=== PATIENT | female | born 1950 | race Caucasian/White ===

== ENCOUNTER 2024-08-25 12:42 | Emergency (ER) | payer MEDICARE, SELFPAY ==
[2024-08-25 12:46] VITALS: BP 174/99; PULSE 98; TEMP 36.6; O2SAT 98; BMI 32.7
--- NOTE | 2024-08-25 13:18 | CT_ITS ---
The [address] [address] Patient Name: JANELLE BROWN MRN: [id number] date: 1950 Sex: F Assigned Patient Location: ER Current Patient Location: ER Accession/Order Number: [id number] Exam Date: 08/25/2024 13:30 Report Date: 08/25/2024 13:56 At the request of: SUSIE BELL Procedure: CT head/brain wo con EXAM: CT head/brain wo con HISTORY: trauma COMPARISON: None. TECHNIQUE: Multiple thin computed tomograms of the head were obtained, with sagittal and coronal reconstructions. Radiation reduction technique and algorithms were utilized during the study. FINDINGS: The ventricles are not enlarged, the lateral ventricles are slightly asymmetric but within normal variation, and the third ventricles in the midline. The sylvian fissures and cortical sulci are unremarkable. There is no evidence of an intracranial hemorrhage, mass lesion or apparent acute infarct. No definite abnormality seen in the deep white matter. The cerebellum and visualized brainstem are intact. The paranasal sinuses are well-developed with a few opacified ethmoid air cells anteriorly. The middle ears are aerated. The mastoid sinuses are clear. Soft tissue swelling is noted superficially along the anterior aspect of the forehead, with small air bubbles suggesting laceration and hematoma. CT/CT head/brain wo con IMPRESSION: There is no evidence of an intracranial hemorrhage, mass lesion or apparent acute infarct. A few ethmoid air cells are opacified anteriorly, and the paranasal sinuses otherwise clear. There is no apparent acute skull fracture. Soft tissue swelling in the subcutaneous soft tissues anteriorly at the forehead is noted, with laceration and small hematoma. Electronically authenticated by: FELICITAS HURTADO Date: 08/25/2024 13:56
--- NOTE | 2024-08-25 13:18 | CT_ITS ---
The [address] [address] Patient Name: JANELLE BROWN MRN: [id number] date: 1950 Sex: F Assigned Patient Location: ER Current Patient Location: ER Accession/Order Number: [id number] Exam Date: 08/25/2024 13:30 Report Date: 08/25/2024 14:22 At the request of: SUSIE BELL Procedure: CT facial bones wo con EXAM: Facial bones CT without contrast. Dose reduction technique used: Automated exposure control and/or adjustment of the mA and/or kV according to patient size and/or use of iterative reconstruction technique. REASON FOR EXAM: trauma COMPARISON: None FINDINGS: No acute facial bone or paranasal sinus fractures. Bilateral orbits are intact. No mandible fracture or dislocation. Bilateral globes are grossly intact. No orbital hematoma or inflammatory changes. Paranasal sinuses and mastoid air cells are clear. Frontal scalp laceration. Remainder unremarkable. CT/CT facial bones wo con IMPRESSION: 1.Frontal scalp laceration. 2. No other acute maxillofacial abnormalities. Electronically authenticated by: DELANO STOUT Date: 08/25/2024 14:22
[2024-08-25] MEDS: ADACEL DIPH,PERTUSS(ACELL),TET VAC/PF 0.5 ML ADULT SYRINGE IM (13:23)
[2024-08-25] MEDS: LIDOCAINE HCL 1% 100 MG/10 ML MDV INJ (13:27)
--- NOTE | 2024-08-25 16:19 | ED.HEATRA1 ---
HPI HPI - Head Injury General Chief complaint: Head Injury Stated complaint: FALL Time Seen by Provider: 08/25/24 13:07 Mode of arrival: walk-in History of Present Illness HPI Narrative: The patient is coming to us with a forehead laceration that she sustained after she fell almost within the last hour when she was at home. Patient mentioned that she just tripped on the carpet and hit her forehead on the heater at home There was no loss of consciousness the patient does not take any anticoagulation The patient does not remember the last time she had a tetanus booster and she is denying any pain other than mild headache Related Data Home Medications ?Medication ?Instructions ?Recorded ?Confirmed buspirone 15 mg tablet 15 mg PO Q12H 08/25/24 08/25/24 losartan 50 mg tablet 50 mg PO DAILY 08/25/24 08/25/24 omeprazole 40 mg capsule,delayed 40 mg PO DAILY 08/25/24 08/25/24 release rosuvastatin 5 mg tablet 5 mg PO Q48H 08/25/24 08/25/24 venlafaxine 150 mg 150 mg PO DAILY 08/25/24 08/25/24 capsule,extended release 24 hr venlafaxine 75 mg capsule,extended 75 mg PO DAILY 08/25/24 08/25/24 release 24 hr Allergies Allergy/AdvReac Type Severity Reaction Status Date / Time No Known Drug Allergies Allergy Verified 08/25/24 12:46 Opioid HPI Opioid Management Most Recent Pain and Opioid Data: No Data to Display Review of Systems ROS Status of ROS 10 or more systems reviewed and unremarkable except as noted in history and below PFSH PFSH Social History Little interest or pleasure in doing things: not at all Feeling down, depressed, or hopeless: not at all Exam Narrative Exam Narrative: Nurses notes and vital signs reviewed and patient is not hypoxic. General: Well-appearing and in no apparent distress. Skin: Warm, dry, no pallor noted. No rash. Head: Normocephalic, just above the right eyebrow the patient have a laceration that is vertical linear and the almost 5 cm with the no exposure of the underlying structures no foreign body and the bleeding is minimal Neck: Supple, non-tender. Eye: Pupils are equal, round and EOMI. No scleral icterus. Ears, Nose, Mouth, and Throat: TM are clear, no nasal mucosal hypertrophy. Oral mucosa is moist, no posterior oropharynx erythema, uvula is mid-line Cardiovascular: Regular Rate and Rhythm without murmur, gallop or rub. Respiratory: No accessory muscle use or respiratory distress. Lungs are clear to auscultation, no wheezing, rales or rhonchi Chest Wall: no tenderness Back: No midline thoracic or lumbar vertebral tenderness. No CVA tenderness Musculoskeletal: normal ROM, no calf or popliteal tenderness, no lower extremity edema/swelling GI: Abdomen is soft, non-distended. Normal bowel sounds. No masses appreciated. No tenderness to palpation. No rebound, guarding, or rigidity noted. Neurological: A&O x4. No cranial nerve dysfunction observed. No truncal ataxia. Moves all extremities. Sensation intact. Psychiatric: Cooperative and interactive. Normal mood and affect. Constitutional Vital Signs, click to edit/add: Last Vital Signs Temp 98 F 08/25/24 12:46 Pulse 98 H 08/25/24 12:46 Resp 18 08/25/24 12:46 BP 174/99 H 08/25/24 12:46 Pulse Ox 98 08/25/24 12:46 O2 Del Method Room Air 08/25/24 12:46 Course Vital Signs Vital signs: Vital Signs Temperature 98 F 08/25/24 12:46 Pulse Rate 98 H 08/25/24 12:46 Respiratory Rate 18 08/25/24 12:46 Blood Pressure 174/99 H 08/25/24 12:46 Pulse Oximetry 98 08/25/24 12:46 Oxygen Delivery Method Room Air 08/25/24 12:46 Temperature 98 F 08/25/24 12:46 Pulse Rate 98 H 08/25/24 12:46 Respiratory Rate 18 08/25/24 12:46 Blood Pressure 174/99 H 08/25/24 12:46 Pulse Oximetry 98 08/25/24 12:46 Oxygen Delivery Method Room Air 08/25/24 12:46 MDM - Head Injury MDM Narrative Medical decision making narrative: CT of the head as well as CT of the face showed no acute pathology Patient was provided tetanus booster After cleaning the area with normal saline and Betadine the patient had the area infiltrated with 1% lidocaine with no epinephrine almost 10 cc After which the patient had 7 stitches of 4-0 Ethilon stitches The patient tolerated the procedure well she was instructed about wound care and monitoring her symptoms for the next 10 hours after she had a head injury The patient son will be with her overnight The patient is to follow up with primary care physician in next 2-3 days or to return to the emergency department should any of the signs or symptoms worsen or new symptoms develop. The patient agrees with the following Diagnosis and Treatment plan and the patient will be discharged home. Discharge Plan Discharge Chief Complaint: Head Injury Clinical Impression: Closed head injury, Laceration of face Patient Disposition: Home, Self-Care Time of Disposition Decision: 14:39 Condition: Good Prescriptions / Home Meds: No Action buspirone 15 mg tablet 15 mg PO Q12H losartan 50 mg tablet 50 mg PO DAILY omeprazole 40 mg capsule,delayed release(DR/EC) 40 mg PO DAILY rosuvastatin 5 mg tablet 5 mg PO Q48H venlafaxine 150 mg capsule,extended release 24hr 150 mg PO DAILY venlafaxine 75 mg capsule,extended release 24hr 75 mg PO DAILY Print Language: Setswana Instructions: Laceration (DC), Head Injury (ED) Referrals: CHRISTINA JARVIS [Primary Care Provider] - 1 week Discharge Date/Time: 08/25/24 14:51
== END 2024-08-25 14:51 | disposition home or self-care (01) ==
PROVIDERS: Emergency Provider Emergency Medicine; PCP Family Medicine
DX: S01.81XA Laceration without foreign body of other part of head, initial encounter (principal); S09.8XXA Other specified injuries of head, initial encounter; W01.198A Fall on same level from slipping, tripping and stumbling with subsequent striking against other object, initial encounter; Z23 Encounter for immunization
CPT/HCPCS: 12013; 70450; 70486; 90471; 90715; 99284

== ENCOUNTER 2025-08-25 16:24 | Inpatient (IN) | payer MEDICARE, SELFPAY ==
[2025-08-25] VITALS (66 sets, daily range): BP systolic 93–135; BP diastolic 59–90; PULSE 75–182; TEMP 36.2–37.1; O2SAT 78–100; BMI 30.4; BMI 31.9
--- OUTSIDE RECORDS SUMMARY | 2025-08-25 16:29 | XMS_ITS | CCD ---
Author Organization [facility] Care Team Providers Care Australian Rules Footballer Name Role Phone BEVERLY GARCIAIL Admitting Unavailable BEVERLY GARCIAIL Attending Unavailable CHRISTINA JARVIS Referring Unavailable CHRISTINA JARVIS Primary Care Unavailable [place] Procedure Practitioner Unavailab le PETE GARCIA Surgeon Unavailable JAZMIN AVILA Admitting Unavailable JAZMIN AVILA Attending Unavailable CHRISTINA JARVIS Referring Unavailable CHRISTINA JARVIS Primary Care Unavailable JAZMIN AVILA Admitting Unavailable JAZMIN AVILA Attending Unavailable JAZMIN AVILA Referring Unavailable CHRISTINA JARVIS Primary Care Unavailable JAZMIN AVILA Admitting Unavailable JAZMIN AVILA Attending Unavailable CHRISTINA JARVIS Referring Unavailable CHRISTINA JARVIS Primary Care Unavailable Christina Jarvis Unavailable YADIRA Gao, DR MARY Pham Admitting Unavaila ble YADIRA ., DR MARY Pham Attending Unavaila binta JARVIS, DR VASQUEZ Primary Care Unavailable YADIRA ., DR MARY Pham Consulting Unavaila ble FILI II, SUSANA Consulting Unavailable NIKOLE HARE Unavailable DO Christina Jarvis Primary Care Provider DO Christina Jarvis Attending Provider DO Christina Jarvis Primary Care Provider [phone] DO Christina Jarvis Attending Provider [phone] Christina Jarvis DO Primary Care Provider Christina Jarvis DO Attending Provider Christina Jarvis Attending Unavailable Christina Jarvis Primary Care Unavailable Christina Jarvis Admitting Unavailable Christina Jarvis Admitting Unavailable Christina Jarvis Attending Unavailable Christina Jarvis Primary Care Unavailable Allergies Allergy ClassificationReported Allergen(s)Allergy TypeDate of OnsetReaction(s) Facility (5 sources)Acetaminophen / HYDROcodoneDrug Allergyhives?Toothpick Other (10 sources)atorvastatinDrug Sfeqmpd47-89-8933gwg painCorey Hospital (10 sources)ezetimibeDrug Oczbjdc97-92-8310zyak't likeCorey Hospital (6 sources)Acetaminophen; Translations: [acetaminophen]Drug Unchqfr05-58-3875 hives?[facility] (6 sources)HYDROcodone; Translations: [hydrocodone]Drug Kcpsalr07-94-0502zashw? [facility] (1 source)atorvastatinDrug Gfkafbe28-16-4125McfwahohlCorey Hospital Repository (1 source)ezetimibeDrug Mtwwmdq06-89-2366ShqsfokiyCorey Hospital Repository Medications Current Medications MedicationDrug Class(es)DatesSig (Normalized)Sig (Original)Centrum Silver (5 sources)take 1 tablet by mouth once dailyCentrum Silver 1 tablet Orally once a day ActivecycloSPORINE 0.5 mg/ml ophthalmic suspension (5 sources)Calcineurin Inhibitor Immunosuppressanttake 1 drop(s) into the eye(s) twice dailyRestasis 0.05 % 1 drop into affected eye Ophthalmic Twice a day Activetake 1 drop(s) into the eye(s) twice dailyRestasis 0.05 % 1 drop into affected eye Ophthalmic Twice a day ActiveLifitegrast (Xiidra) 5 % dropperette (2 sources)Start: 12-80-5882Iueclerwipq (Xiidra) 5 % dropperette Active DROPS OPHTHALMIC May 27, 2024 11:00pmStart: 68-18-9737Yiyfijdhghu (Xiidra) 5 % dropperette Active DROPS OPHTHALMIC May 28, 2024 12:00amlosartan potassium 50 mg oral tablet (20 sources)Angiotensin 2 Receptor BlockerStart: 59-94-7889mhya 1 tablet by mouth once dailyStart: 06-07-2024 End: 06-04-9404fsqf 1 tablet by mouth once dailyLosartan 50 mg tablet Discontinued 0 .ROUTE .COMPLEX May 14, 2025 2:21pm June 12, 2025 9:3 0am TAKE 1 TABLET BY MOUTH EVERY DAYStart: 03-08-2024 End: 38-28-9784ztdr 1 tablet by mouth once dailyLosartan 50 mg tablet Discontinued 50 MG PO Daily March 08, 2024 10:23am June 07, 2024 9:22am Losartan Potassium 50 mg TAKE 1 TABLET DAILY EbxgutDreoneyx-Avg-Hoav-Fa-Vit K- Lut (Centrum Silver Women) 8 mg iron-400 mcg-50 mcg tablet (4 sources)Start: 63-92-5751jdig 1 tablet by mouth once daily Yeyttvpf-Uca-Tskx-Fa-Vit K-Lut (Centrum Silver Women) 8 mg iron-400 mcg-50 mcg tablet Active 1 TAB PO Daily May 28, 2024 12:00am Complies with drug therapy Start: 12-63-1421cqqz 1 tablet by mouth once dailyStart: 33-46-1545afmk 1 tablet by mouth once qoqdmTjrowqcj-Csc-Elgj-Fa-Vit K-Lut (Centrum Silver Women) 8 mg iron-400 mcg-50 mcg tablet Active 1 TAB PO Daily May 27, 2024 11:00pmStart: 48-23-9462odfe 1 tablet by mouth once bmnjrWsuxcasd-Lte-Bdcy-Fa-Vit K-Lut (Centrum Silver Women) 8 mg iron-400 mcg-50 mcg tablet Active 1 TAB PO Daily May 28, 2024 12:00amomeprazole 40 mg delayed release oral capsule (20 sources)Proton Pump InhibitorStart: 05-28-2024 End: 33-28-3768Llzjoaetkx 40 mg capsule,delayed release(DR/EC) Active 40 MG PO .COMPLEX August 01, 2024 8:13am 40 mg orally TAKE 1 CAPSULE BY MOUTH EVERY DAY 30 MINUTES BEFORE MORNING MEAL; Complies with drug therapyStart: 05-01-2024 End: 01-42-9533Buntofjvnb 40 mg capsule,delayed release(DR/EC) Discontinued 0 .ROUTE .COMPLEX May 01, 2024 12:00pm May 28, 2024 2:56pm TAKE 1 CAPSULE BY MOUTH EVERY DAY 30 MINUTES BEFORE MORNING MEAL FOR 90 DAYSStart: 02-20-2024 End: 21-35-9315fykl 1 capsule by mouth once daily at mealtimeOmeprazole 40 mg capsule,delayed release(DR/EC) Discontinued 40 MG PO Daily February 20, 2024 3:05pmJuly 2023 12:00pm 30 min prior to a mealStart: 02-20-2024 End: 17-76-5606nqkf 1 capsule by mouth every other day at mealtimeOmeprazole 40 mg capsule,delayed release(DR/EC) Discontinued 40 MG PO .QOD February 20, 2024 12:00amApril 2023 3:05pm 30 min prior to a mealOmeprazole 40 MG 1 capsule 30 min prior to a meal Orally qod Activerosuvastatin calcium 5 mg oral tablet (20 sources)HMG-CoA Reductase InhibitorStart: 53-90-9258soco 1 tablet by mouth every other dayStart: 06-06-2024 End: 91-98-4090puht 1 tablet by mouth every other dayRosuvastatin 5 mg tablet Discontinued 0 .ROUTE .COMPLEX May 14, 2025 2:21pm June 1259:30am TAKE 1 TABLET BY MOUTH EVERY OTHER DAYStart: 03-08-2024 End: 09-21-4073vzxl 1 tablet by mouth every other dayRosuvastatin 5 mg tablet Discontinued 5 MG PO .QOD March 08, 2024 10:23am June 06, 2024 8:26amtake 1 tablet by mouth every other dayRosuvastatin Calcium 5 MG TAKE 1 TABLET BY MOUTH EVERY OTHER DAY for 90 ActivevalACYclovir 1000 mg oral tablet (1 source)Herpesvirus Nucleoside Analog DNA Polymerase Inhibitor, Herpes Simplex Virus Nucleoside Analog DNA Polymerase Inhibitor, Herpes Zoster Virus Nucleoside Analog DNA Polymerase InhibitorStart: 03-48-8488tnkf 1 tablet by mouth every eight hoursValtrex 1 GM 1 tablet Orally tid for 7 days Jan, Twgboa61 hr venlafaxine 150 mg extended release oral tablet (20 sources)Serotonin and Norepinephrine Reuptake InhibitorStart: 40-04-7359uxpv 1 capsule by mouth once dailyVenlafaxine 75 mg capsule,extended release 24hr Active 75 MG PO daily June 12, 2025 12:00am Complies with drug therapyStart: 08-31-2024 End: 04-27-1020kwjo 1 capsule by mouth once daily in the morningVenlafaxine 150 mg capsule,extended release 24hr Discontinued 150 MG PO Every morning August 1:00am June 12, 2025 9:22amStart: 05-28-2024 End: 39-53-4326dnyn 1 tablet by mouth once dailyVenlafaxine 150 mg tablet extended release 24hr Active 150 MG PO Daily June 12, 2025 9:24am Dr Arnett Complies with drug therapyStart: 05-28-2024 End: 99-75-0464bsqg 1 capsule by mouth once dailyVenlafaxine 75 mg capsule,extended release 24hr Discontinued 75 MG PO Daily May 28, 2024 12:00am August 31, 2024 12:43pmtake 1 tablet by mouth every twenty-four hours Venlafaxine HCl ER 150 MG 1 tablet with food Orally Once a day Active Completed/Discontinued Medications MedicationDrug Class(es)DatesSig (Normalized)Sig (Original)busPIRone hydrochloride 15 mg oral tablet (17 sources)Start: 05-28-2024 End: 54-86-6559gyrn 1 tablet by mouth twice daily, then take 1 tablet by mouth twice dailyBuspirone 15 mg tablet Discontinued 15 MG PO .COMPLEX May 28, 2024 2:56pm May 28, 2024 2:57pm 15 mg orally take 1 & 1/2 of a 15 MG tablet twice a day; take 1 & 1/2 of a 15 MG tablet twice a daybusPIRone HCl 15 MG 1 and 1/2 tablet Orally Twice a day Activelifitegrast 50 mg/ml ophthalmic solution (2 sources)Lymphocyte Function-Associated Antigen-1 AntagonistStart: 05-28-2024 End: 46-91-7115Ozuoagynspy (Xiidra) 5 % dropperette Discontinued DROPS OPHTHALMIC May 28, 2024 12:00am June 12, 2025 9:21am Problems Active Problems Problem ClassificationProblemDateDocumented DateEpisodic/ChronicComplications of surgical procedures or medical care (3 sources)Periprosthetic fracture around internal prosthetic left hip joint, initial encounter; Translations:[PERIPROSTH FRACTURE AROUND INTERNAL PROSTH L HIP JT, INIT]Onset: 60-03-6123Xvtyqhqn mellitus without complication (9 sources)Hyperglycemia, unspecified; Translations: [Hyperglycemia]Onset: 01-08-2022 Resolved: 51-53-8930FymmnocfSuwsauuk of white blood cells (5 sources)Decreased blood leukocyte number; Translations: [Decreased white blood cell count, unspecified]ChronicDisorders of lipid metabolism (15 sources)Hyperlipidemia; Translations: [Hyperlipidemia, unspecified]Onset: 01-08-2022 Resolved: 33-98-4654LbajfseXjadxbyll of lipid metabolism (1 source)Pure hypercholesterolemia, unspecified; Translations: [PURE HYPERCHOLESTEROLEMIA, UNSPECIFIED]Onset: 16-96-3807Lcxwrxrwybinkf and diverticulitis (1 source)Diverticulosis of large intestine without perforation or abscess without bleeding; Translations: [DVRTCLOS LG INT NO PERF/ABSC W/O BL]Onset: 00-89-1458ByzcjlwErkihrysx hypertension (15 sources)Essential (primary) hypertension; Translations: [Hypertensive disorder]Onset: 10-01-2018 Resolved: 89-03-2294QbcvxgxCfahmijn of lower limb (4 sources)Unspecified fracture of left femur, subsequent encounter for closed fracture with routine healing; Translations: [UNSP FRACTURE OF LEFT FEMUR, SUBS FOR CLOS FX W ROUTN HEAL]Onset: 62-97-5238PsaoflkbUnctukcka and duodenitis (1 source)Unspecified chronic gastritis without bleeding; Translations: [UNS CHRONIC GASTRITIS W/O BLEEDING]Onset: 09-30-7834TbstrfxHxlgzmerr and duodenitis (8 sources)Gastritis; Translations: [Gastritis, unspecified, without bleeding] EpisodicGastroduodenal ulcer (except hemorrhage) (1 source)Gastric ulcer, unspecified as acute or chronic, without hemorrhage or perforation; Translations: [GASTR ULCR UNS AC/CHRN W/O HEM/PERF]Onset: 91-21-1121OwnefsiGaerusedbjeqz symptoms and ill-defined conditions (9 sources)Hematuria, unspecified; Translations: [Blood in urine]Onset: 01-08-2022 Resolved: 48-19-0380VjmzivauOqtc disorders (12 sources)Major depressive disorder, single episode, unspecified; Translations: [Depression]Onset: 01-08-2022 Resolved: 35-25-9282LgpupqeOfkm disorders (2 sources)Major depressive disorder, single episode, unspecified; Translations: [Mood disorders]Onset: 38-17-7681Zkyfmsuvjczies (8 sources)Unilateral primary osteoarthritis, right hip; Translations: [Unilateral primary osteoarthritis, right knee]Onset: 07-26-9383EiggipmFsilr aftercare (4 sources)Other penitentiary (current) drug therapy; Translations: [OTH SHELTER CURRENT DRUG THERAPY]Onset: 01-08-2022 Resolved: 89-83-8691EgyiivliHicio aftercare (2 sources)Removal of sutures done; Translations: [Encounter for removal of sutures]73-26-1457FcgaauaaUraym and unspecified benign neoplasm (1 source)Benign neoplasm of sigmoid colon; Translations: [BENIGN NEOPLASM OF SIGMOID COLON]Onset: 99-05-1723YkyyozowVsllf and unspecified benign neoplasm (1 source)Benign neoplasm of transverse colon; Translations: [BENIGN NEOPLASM OF TRANSVERSE COLON]Onset: 03-86-0533DwrfpolfTanmh and unspecified benign neoplasm (1 source)Polyp of stomach and duodenum; Translations: [POLYP OF STOMACH AND DUODENUM]Onset: 04-42-2090JhginlqjXpzau connective tissue disease (2 sources)Presence of left artificial hip joint; Translations: [PRESENCE OF LEFT ARTIFICIAL HIP JOINT]Onset: 54-68-4626ZxrodpvOygeu connective tissue disease (2 sources)Other specified soft tissue disorders; Translations: [OTHER SPECIFIED SOFT TISSUE DISORDERS]Onset: 74-75-5743KvplgrqyDddmh gastrointestinal disorders (4 sources)Other fecal abnormalities; Translations: [OTHER FECAL ABNORMALITIES] Onset: 37-45-9020ChkpwislJsncy nervous system disorders (2 sources)Impairment of balance; Translations: [Other abnormalities of gait and mobility]59-91-4072UrlhdpmlJbqvo nervous system disorders (1 source)Other abnormalities of gait and mobility; Translations: [Other abnormalities of gait and mobility]Onset: 93-43-6512DnovbprzVukjg nutritional; endocrine; and metabolic disorders (1 source)Obesity, unspecified; Translations: [OBESITY UNSPECIFIED]Onset: 28-08-0864LivsnnlCpnej nutritional; endocrine; and metabolic disorders (1 source)Body mass index (BMI) 33.0-33.9, adult; Translations: [BODY MASS INDEX BMI 33.0-33.9 ADULT]Onset: 02-67-2183MhzpfitQuvjp nutritional; endocrine; and metabolic disorders (3 sources)Abnormal weight loss; Translations: [Abnormal weight loss]Onset: 01-08-2022 Resolved: 49-45-9801FsifhsfpBpvnl nutritional; endocrine; and metabolic disorders (2 sources)Intentional weight xjxw45-75-5096JlmkjbzpKrcya screening for suspected conditions (not mental disorders or infectious disease) (5 sources)Abnormal findings on diagnostic imaging of breast; Translations: [Other abnormal and inconclusive findings on diagnostic imaging of breast] EpisodicSpondylosis; intervertebral disc disorders; other back problems (1 source)Spondylosis without myelopathy or radiculopathy, lumbar region; Translations: [SPONDYLOSIS W/O MYELOPATHY OR RADICULOPATHY, LUMBAR REGION]Onset: 31-36-3533GnpfghaTnxwbalipcyd (1 source)LEFT PERIPROSTHETIC FRACTUREOnset: 43-32-9899Kkowejrwpbfr (1 source)LEFT FEMUR FXOnset: 49-95-4198Evgmnaigmdrv (1 source)ESOPHAGITIS UNSPEC WITHOUT BLEEDING; Translations: [ESOPHAGITIS UNSPEC WITHOUT BLEEDING]Onset: 12-29-2022 Past or Other Problems Problem ClassificationProblemDateDocumented DateEpisodic/ChronicComplication of device; implant or graft (1 source)Fracture of femur following insertion of orthopedic implant, joint prosthesis, or bone plate, left leg; Translations: [FX FEMUR FOL INSRT ORTHO IMPLNT/PROSTH/BONE PLT, LEFT LEG]Onset: 37-97-5803RnsnjivfQonwxqlivv and other anemia (1 source)Anemia, unspecified; Translations: [ANEMIA, UNSPECIFIED]Onset: 22-50-0772ZmjqcdtkPnzow and electrolyte disorders (1 source)Hypo-osmolality and hyponatremia; Translations: [HYPO-OSMOLALITY AND HYPONATREMIA]Onset: 19-14-3391OpxdkrwtVjbkk connective tissue disease (1 source)Pain in unspecified footOnset: 01-08-2022 Resolved: 51-07-4036Nrveheng Results Test NameValueInterpretationReference IcoydIkwweulxS1C with Estimated Average Gluon 82-81-8922Knphmbj [Mass/Vol]111 mg/dLNormElyria Memorial Hospitale [facility] Comment on above:Result Comment: PERFORMED BY: [place] [address] PATHOLOGIST COLOR MIXER CHAMP COATES M.D.Performed By: #### CUU, ADDONUAPLUS, A1C WTH eA, CBC, CMP, LIPID, TSH3 #### [address] StreetAlanine aminotransferase [Enzymatic activity/volume] in Serum or PlasmaOrdered By: Christina Jarvis on 97-39-1204NOC [Catalytic activity/Vol]19 U/LNormal7-52Corey HospitalComment on above: Performed By: #### CUU, ADDONUAPLUS, A1C WTH eA, CBC, CMP, LIPID, TSH3 #### [facility] [address] [place] [address] USAAlbumin [Mass/volume] in Serum or Plasma by Bromocresol green (BCG) dye binding methoOrdered By: Christina Jarvis on 50-86-4311Ccenyik BCG dye [Mass/Vol]4.2 g/dL3.5-5.7FSt. Vincent HospitalAlkaline phosphatase [Enzymatic activity/volume] in Serum or PlasmaOrdered By: Christina Jarvis on 66-48-4945WYI [Catalytic activity/Vol]78 U/QRekwqe13-462ZuxnkhqpgCorey HospitalComment on above:Performed By: #### CUU, ADDONUAPLUS, A1C WTH eA, CBC, CMP, LIPID, TSH3 #### [facility] [address] [place] [id number] USAAppearance of UrineOrdered By: Christina Jarvis on 06-10-2025 Appearance (U)ClearNormalClearCorey HospitalComment on above: Order Comment: Name Collection Type:: Clean-Voided MidstreamPerformed By: #### CUU, ADDONUAPLUS, A1C WTH eA, CBC, CMP, LIPID, TSH3 #### [facility] [address] [place] [address] USAAspartate aminotransferase [Enzymatic activity/volume] in Serum or PlasmaOrdered By: Christina Jarvis on 13-32-6631VYS [Catalytic activity/Vol]21 U/IMmmpju19-93GyemgudqoCorey HospitalComment on above: Performed By: #### CUU, ADDONUAPLUS, A1C WTH eA, CBC, CMP, LIPID, TSH3 #### [facility] [address] [place] [address] USABacteria [Presence] in Urine by AutomatedOrdered By: Christina Jarvis on 55-13-3558Frgpiynh Auto Ql (U)None seen [HPF]None SeenFirelands Regional Medical CenterBasophils [#/volume] in Blood by Automated countOrdered By: Christina Jarvis on 75-49-8742Axtxaxmcx (Bld) [#/Vol]0.0 10*3/uLNormal0.0-0.2 Corey HospitalComment on above:Result Comment: PERFORMED BY: [place] [address] PATHOLOGIST COLOR MIXER CHAMP COATES M.D.Performed By: #### CUU, ADDONUAPLUS, A1C WTH eA, CBC, CMP, LIPID, TSH3 #### [facility] [address] [place] [address] USABasophils/100 leukocytes in Blood by Automated count Ordered By: Christina Jarvis on 05-00-4960Efvkrlrlr/100 WBC (Bld)0.8 %Normal. Corey HospitalComment on above:Performed By: #### CUU, ADDONUAPLUS, A1C WTH eA, CBC, CMP, LIPID, TSH3 #### [facility] [address] [place] [address] USABilirubin Test strip Ql (U)Ordered By: Christina Jarvis on 69-78-0717Jdousjfgc Ql (U)NegativeNegativeCorey Hospital Bilirubin.total [Mass/volume] in Serum or PlasmaOrdered By: Christina Jarvis on 38-24-2724Syhxblyzw [Mass/Vol]0.5 mg/dLNormal0.3-1.0Corey HospitalComment on above:Performed By: #### CUU, ADDONUAPLUS, A1C WTH eA, CBC, CMP, LIPID, TSH3 #### [facility] [address] [place] [address] USABlood estimated average glucose determination by estimation from glycated hemoglobinOrdered By: Christina Jarvis on 73-75-8988Cmqbhxk glucose Estimated from glycated hemoglobin (Bld) [Mass/Vol]111 mg/dLCorey HospitalCalcium [Mass/volume] in Serum or PlasmaOrdered By: Christina Jarvis on 47-80-6425Trthowz [Mass/Vol]9.9 mg/dLNormal8.6-10.3FSt. Vincent HospitalComment on above:Performed By: #### CUU, ADDONUAPLUS, A1C WTH eA, CBC, CMP, LIPID, TSH3 #### [facility] [address] [place] [address] USACarbon dioxide, total [Moles/volume] in Serum or Plasma Ordered By: Christina Jarvis on 56-54-7335GO4 [Moles/Vol]28.6 mmol/BIdoxai58.0-31.0 Corey HospitalComment on above:Performed By: #### CUU, ADDONUAPLUS, A1C WTH eA, CBC, CMP, LIPID, TSH3 #### [facility] [address] [place] [id number] USAChloride [Moles/volume] in Serum or PlasmaOrdered By: Christina Jarvis on 16-70-8908Kkyybhem [Moles/Vol]103 mmol/BBnjoea11-567YsuaxbmfuCorey HospitalComment on above:Lipemia is present at a level that could interfere with the result.Hemolysis is present at a level that could interfere with the result.Result Comment: Lipemia is present at a level that could interfere with the result. Hemolysis is present at a level that could interfere with the result.Performed By: #### CUU, ADDONUAPLUS, A1C WTH eA, CBC, CMP, LIPID, TSH3 #### [facility] [address] [place] [id number] USACholesterol [Mass/volume] in Serum or PlasmaOrdered By: Christina Jarvis on 26-67-4392Oztzjtiuptn [Mass/Vol]158 mg/eBDjlcka786-537XxqlqbkpuCorey HospitalComment on above:Chol less than 200 mg/dl low riskChol 201-239 mg/dl borderline riskChol 240 mg/dl and greater high riskResult Comment: Chol less than 200 mg/dl low risk Chol 201-239 mg/dl borderline risk Chol 240 mg/dl and greater high riskPerformed By: #### CUU, ADDONUAPLUS, A1C WTH eA, CBC, CMP, LIPID, TSH3 #### [facility] [address] [place] [address] USACholesterol in HDL [Mass/volume] in Serum or PlasmaOrdered By: Christina Jarvis on 18-61-0725Cxuwhczcuws in HDL [Mass/Vol]45 mg/dLHejupc46-64 Corey HospitalComment on above:HDL CHOL ATP-III CLASSIFICATION Cardiovascular RiskHDL > or equal to 60 mg/dL LOWHDL < 40 mg/dL HIGHResult Comment: HDL CHOL ATP-III CLASSIFICATION Cardiovascular Risk HDL > or equal to 60 mg/dL LOW HDL < 40 mg/dL HIGHPerformed By: #### CUU, ADDONUAPLUS, A1C WTH eA, CBC, CMP, LIPID, TSH3 #### [facility] [address] [place] [address] USACholesterol in LDL Calc [Mass/Vol]Ordered By: Christina Jarvis on 05-52-0317Pjdfjcvijfn in LDL [Mass/Vol]80 mg/dL0-100Corey HospitalComment on above:LDL ATP III CLASSIFICATIONLDL less than 100 mg/dL OptimalLDL 100-129 mg/dL Near or above ostbveqKSF166-324 mg/dL Borderline highLDL 160-189 mg/dL HighLDL greater than 189 mg/dL Very highCholesterol in VLDL Calc [Mass/Vol]Ordered By: Christina Jarvis on 04-67-5507Osdwqabygkh in VLDL [Mass/Vol]32 mg/dLCorey HospitalColor of Urine by AutoOrdered By: Christina Jarvis on 63-39-9180Eywlm (U)Light-yellowNormalYellowCorey HospitalComment on above:Order Comment: Name Collection Type:: Clean-Voided MidstreamPerformed By: #### CUU, ADDONUAPLUS, A1C WTH eA, CBC, CMP, LIPID, TSH3 #### [facility] [address] [place] [address] USAComplete Blood Count Auto Diffon 96-14-3119Pwiv Corpuscular HGB Conc33.1 g/zYCpktxm31.0-35.0The [facility] Physician GroupComment on above:Performed By: #### CUU, ADDONUAPLUS, A1C WTH eA, CBC, CMP, LIPID, TSH3 #### [facility] [address] [place] [address] USANRBC%0.2 /100{WBC}Normal0-0.5[facility] Comment on above:Performed By: #### CUU, ADDONUAPLUS, A1C WTH eA, CBC, CMP, LIPID, TSH3 #### [place] [address] USAWhite Blood Count4.3 [CFU]/mLNormal3.8-11.6The [facility] Physician GroupComment on above:Performed By: #### CUU, ADDONUAPLUS, A1C WTH eA, CBC, CMP, LIPID, TSH3 #### [place] [address] USAComprehensive Metabolic Panelon 15-79-8215Dfuwtsc [Mass/Vol]4.2 g/dLNormal3.5-5.7The [facility] Physician GroupComment on above: Performed By: #### CUU, ADDONUAPLUS, A1C WTH eA, CBC, CMP, LIPID, TSH3 #### [place] [address] USAGFR/1.73 sq M.predicted MDRD (S/P/Bld) [Vol rate/Area] mL/min/{1.73_m2}NormalThe [facility] Physician [facility] GulfportComment on above:Performed By: #### CUU, ADDONUAPLUS, A1C WTH eA, CBC, CMP, LIPID, TSH3 #### [place] [address] USACreatinine [Mass/volume] in Serum or PlasmaOrdered By: Christina Jarvis on 73-72-3952Dzewhprftw [Mass/Vol]0.82 mg/dLNormal0.60-1.20 Corey HospitalComment on above:Performed By: #### CUU, ADDONUAPLUS, A1C WTH eA, CBC, CMP, LIPID, TSH3 #### [place] [id number] USADipstick and Microscopicon 90-39-9927Wztpxqfx,UrineNone SeenNormalNone SeenThe [facility] Physician GroupComment on above:Order Comment: Name Collection Type:: Clean-Voided MidstreamPerformed By: #### CUU, ADDONUAPLUS, A1C WTH eA, CBC, CMP, LIPID, TSH3 #### [place] [address] USABilirubin,UrineNegativeNormalNegativeMedical Center Clinic Physician GroupComment on above:Order Comment: Name Collection Type:: Clean- Voided MidstreamPerformed By: #### CUU, ADDONUAPLUS, A1C WTH eA, CBC, CMP, LIPID, TSH3 #### [place] [address] USAGlucose Ql (U)NormalNormalNormalThSt. Luke's [facility] Physician GroupComment on above:Order Comment: Name Collection Type:: Clean-Voided MidstreamPerformed By: #### CUU, ADDONUAPLUS, A1C WTH eA, CBC, CMP, LIPID, TSH3 #### [place] [address] USAHyaline Casts,UrineNoneNormal0-8The [facility] Physician GroupComment on above:Order Comment: Name Collection Type:: Clean-Voided MidstreamPerformed By: #### CUU, ADDONUAPLUS, A1C WTH eA, CBC, CMP, LIPID, TSH3 #### [place] [address] USAMucus,UrineRareNormalThe [facility] Physician GroupComment on above:Order Comment: Name Collection Type:: Clean-Voided MidstreamResult Comment: PERFORMED BY: [place] [address] PATHOLOGIST COLOR MIXER CHAMP COATES M.D.Performed By: #### CUU, ADDONUAPLUS, A1C WTH eA, CBC, CMP, LIPID, TSH3 #### [place] [address] USANitrite,UrineNegativeNormalNegativeMedical Center Clinic Physician GroupComment on above:Order Comment: Name Collection Type:: Clean-Voided MidstreamPerformed By: #### CUU, ADDONUAPLUS, A1C WTH eA, CBC, CMP, LIPID, TSH3 #### [place] [address] USAOccult Blood,Urine1+NormalNegativeThe Our Community Hospital Physician GroupComment on above:Order Comment: Name Collection Type:: Clean-Voided MidstreamResult Comment: PERFORMED BY: [place] [address] PATHOLOGIST COLOR MIXER CHAMP COATES M.D.Performed By: #### CUU, ADDONUAPLUS, A1C WTH eA, CBC, CMP, LIPID, TSH3 #### [place] [address] USAProtein,UrineNegativeNormalNegativeThe [facility] Physician GroupComment on above:Order Comment: Name Collection Type:: Clean-Voided MidstreamPerformed By: #### CUU, ADDONUAPLUS, A1C WTH eA, CBC, CMP, LIPID, TSH3 #### [place] [address] USARBC,Ftkki2-7Gapbok0-9Bdv [facility] Physician GroupComment on above:Order Comment: Name Collection Type:: Clean-Voided MidstreamPerformed By: #### CUU, ADDONUAPLUS, A1C WTH eA, CBC, CMP, LIPID, TSH3 #### [place] [address] USASpecificy Hague,Urine1.688Rhqpkh3.001-1.030The [facility] Physician GroupComment on above:Order Comment: Name Collection Type:: Clean- Voided MidstreamPerformed By: #### CUU, ADDONUAPLUS, A1C WTH eA, CBC, CMP, LIPID, TSH3 #### [place] [address] USASquamous Epithelial Cell,Bbyit6-6Ckbppc2-0Hje [facility] Physician GroupComment on above:Order Comment: Name Collection Type:: Clean- Voided MidstreamPerformed By: #### CUU, ADDONUAPLUS, A1C WTH eA, CBC, CMP, LIPID, TSH3 #### [facility] [address] [place] [address] USAUrobilinogen,UrineNormalNormalNormalThe [facility] Physician GroupComment on above:Order Comment: Name Collection Type:: Clean- Voided MidstreamPerformed By: #### CUU, ADDONUAPLUS, A1C WTH eA, CBC, CMP, LIPID, TSH3 #### [facility] [address] [place] [address] USAWBC,Vszrr5-8Svwmfx3-7Ety [facility] Physician GroupComment on above:Order Comment: Name Collection Type:: Clean-Voided MidstreamPerformed By: #### CUU, ADDONUAPLUS, A1C WTH eA, CBC, CMP, LIPID, TSH3 #### [facility] [address] [place] [address] USAEosinophils [#/volume] in Blood by Automated countOrdered By: Christina Jarvis on 72-90-1154Kzomzbqkfzf (Bld) [#/Vol]0.1 10*3/uLNormal0.0-0.45 [facility]y HospitalComment on above:Performed By: #### CUU, ADDONUAPLUS, A1C WTH eA, CBC, CMP, LIPID, TSH3 #### [place] [address] USAEosinophils/100 leukocytes in Blood by Automated count Ordered By: Christina Jarvis on 71-87-8159Dndsltonwks/100 WBC (Bld)3.1 %Normal. Corey HospitalComment on above:Performed By: #### CUU, ADDONUAPLUS, A1C WTH eA, CBC, CMP, LIPID, TSH3 #### [facility] [address] [place] [address] USAEpithelial cells.squamous [#/area] in Urine sediment by Automated countOrdered By: Christina Jarvis on 47-21-6268Ygxdnxglaq cells.squamous Auto (Urine sed) [#/Area]1-2 [HPF]0-2FSt. Vincent Hospital Erythrocyte distribution width [Ratio] by Automated countOrdered By: Christina Jarvis on 00-95-5036Vhfnbljcpab distribution width (RBC) [Ratio]15.1 %Normal 11.9-15.3FSt. Vincent HospitalComment on above:Performed By: #### CUU, ADDONUAPLUS, A1C WTH eA, CBC, CMP, LIPID, TSH3 #### [facility] [address] [place] [address] USAErythrocytes [#/area] in Urine sediment by Automated count Ordered By: Christina Jarvis on 15-89-1746SHB Auto (Urine sed) [#/Area]5-9 [HPF]High 0-4FSt. Vincent HospitalErythrocytes [#/volume] in Blood by Automated countOrdered By: Christina Jarvis on 43-51-9835DSP (Bld) [#/Vol]4.71 10*6/uLNormal3.60-5.00Corey HospitalComment on above: Performed By: #### CUU, ADDONUAPLUS, A1C WTH eA, CBC, CMP, LIPID, TSH3 #### [facility] [address] [place] [address] USAGlomerular filtration rate [Volume Rate/Area] in Serum, Plasma or Blood by CreatinineOrdered By: Christina Jarvis on 97-43-3642Nouxdqwzjd filtration rate [Volume Rate/Area] in Serum, Plasma or Blood by Creatinine> 60.0 mL/MinCorey HospitalGlucose [Mass/volume] in Serum or Plasma Ordered By: Christina Jarvis on 84-88-0539Quzvrde [Mass/Vol]105 mg/hMTqlk06-302 [facility] HospitalComment on above:ADA recommended reference rangeRandom Glucose Reference Range is dependent on time and content of last meal. Glucose of more than 200 mg/dL in a nonstressed, ambulatory subject supports the diagnosisof Diabetes Mellitus.Result Comment: Random Glucose Reference Range is dependent on time and content of last meal. Glucose of more than 200 mg/dL in a nonstressed, ambulatory subject supports the diagnosis of Diabetes Mellitus. ADA recommended reference rangePerformed By: #### CUU, ADDONUAPLUS, A1C WTH eA, CBC, CMP, LIPID, TSH3 #### [facility] [address] [place] [id number] USAGlucose [Mass/volume] in Urine by Test stripOrdered By: Christina Jarvis on 33-42-3590Qlnyrjh Test strip (U) [Mass/Vol]Normal mg/dLNormal Corey HospitalHematocrit [Volume Fraction] of Blood by Automated countOrdered By: Christina Jarvis on 07-31-0685Lsyzrcjztx (Bld) [Volume fraction]42.3 %Hkdqhv23.0-46.4FSt. Vincent HospitalComment on above: Performed By: #### CUU, ADDONUAPLUS, A1C WTH eA, CBC, CMP, LIPID, TSH3 #### [facility] [address] [place] [id number] USAHemoglobin A1c/Hemoglobin.total in BloodOrdered By: Christina Jarvis on 42-59-4385WeY6z (Bld) [Mass fraction]5.5 %Normal4.3-5.6FSt. Vincent HospitalComment on above:Increased risk for diabetes: 5.7 - 6.4diabetes: >6.4glycemic control for adults with diabetes: <7.0Result Comment: Increased risk for diabetes: 5.7 - 6.4 diabetes: >6.4 glycemic control for adults with diabetes: <7.0Performed By: #### CUU, ADDONUAPLUS, A1C WTH eA, CBC, CMP, LIPID, TSH3 #### [facility] [address] [place] [id number] USAHemoglobin Test strip Ql (U)Ordered By: Christina Jarvis on 94-36-6830Aotexezpyy Ql (U)1+HighNegativeCorey Hospital Hemoglobin [Mass/volume] in BloodOrdered By: Christina Jarvis on 06-10-2025 Hemoglobin (Bld) [Mass/Vol]14.0 g/xAVxabcd76.8-15.4FSt. Vincent HospitalComment on above:Performed By: #### CUU, ADDONUAPLUS, A1C WTH eA, CBC, CMP, LIPID, TSH3 #### [facility] [address] [place] [address] USAHyaline casts [#/area] in Urine sediment by Automated countOrdered By: Christina Jarvis on 78-85-0015Uoajtkt casts Auto (Urine sed) [#/Area]None [LPF]0-8Corey HospitalKetones [Presence] in Urine by Test stripOrdered By: Christina Jarvis on 02-22-1728Scuvdzn Ql (U)Trace NormalNegSt. Francis HospitalComment on above:Order Comment: Name Collection Type:: Clean-Voided MidstreamPerformed By: #### CUU, ADDONUAPLUS, A1C WTH eA, CBC, CMP, LIPID, TSH3 #### [facility] [address] [place] [id number] USALeukocyte esterase [Presence] in Urine by Test strip Ordered By: Christina Jarvis on 58-16-0241Cuoablaeg esterase Test strip Ql (U) NegativeNormalNegSt. Francis HospitalComment on above:Order Comment: Name Collection Type:: Clean-Voided MidstreamPerformed By: #### CUU, ADDONUAPLUS, A1C WTH eA, CBC, CMP, LIPID, TSH3 #### [facility] [address] [place] [id number] USALeukocytes [#/area] in Urine sediment by Automated count Ordered By: Christina Jarvis on 53-00-0589PQP Auto (Urine sed) [#/Area]1-2 [HPF]0-4 Corey HospitalLeukocytes [#/volume] corrected for nucleated erythrocytes in Blood by Automated counOrdered By: Christina Jarvis on 40-85-3021SCH corrected for nucl RBC Auto (Bld) [#/Vol]4.3 10*3/uL3.8-11.6FSt. Vincent HospitalLeukocytes [#/volume] in Blood by Automated countOrdered By: Christina Jarvis on 33-41-7016GRE (Bld) [#/Vol]4.3 10*3/uLNormal3.8-11.6FSt. Vincent HospitalComment on above:Performed By: #### CUU, ADDONUAPLUS, A1C WTH eA, CBC, CMP, LIPID, TSH3 #### [facility] [address] [place] [address] USALipid Panelon 00-50-6036HOT Cholesterol,Grwnejwbfd40 mg/dL Normal0-100The [facility] Physician GroupComment on above:Result Comment: LDL ATP III CLASSIFICATION LDL less than 100 mg/dL Optimal LDL 100-129 mg/dL Near or above optimal LDL 130-159 mg/dL Borderline high LDL 160-189 mg/dL High LDL greater than 189 mg/dL Very highPerformed By: #### CUU, ADDONUAPLUS, A1C WTH eA, CBC, CMP, LIPID, TSH3 #### [facility] [address] [place] [id number] USATriglyceride w/Vucsis457 mg/dLHigh0-149The [facility] Physician GroupComment on above:Result Comment: TRIG ATP III CLASSIFICATION TRIG less than 150 mg/dL Normal TRIG 150-199 mg/dL Borderline high TRIG 200-500 mg/dL High TRIG greater than 500 mg/dL Very high Standard traceable to the Center for Disease Conrtrol and Prevention (CDC) test method.Performed By: #### CUU, ADDONUAPLUS, A1C WTH eA, CBC, CMP, LIPID, TSH3 #### [facility] [address] [place] [id number] USAVLDL XMHIMZUQLXL62 mg/dLNormalThe [facility] Physician [facility] GulfportComment on above:Performed By: #### CUU, ADDONUAPLUS, A1C WTH eA, CBC, CMP, LIPID, TSH3 #### [facility] [address] [place] [id number] USALymphocytes [#/volume] in Blood by Automated countOrdered By: Christina Jarivs on 68-81-2586Ebztmdeqqxq (Bld) [#/Vol]1.0 10*3/uLNormal1.00-4.8 [facility] HospitalComment on above:Performed By: #### CUU, ADDONUAPLUS, A1C WTH eA, CBC, CMP, LIPID, TSH3 #### [facility] [address] [place] [id number] USALymphocytes/100 leukocytes in Blood by Automated count Ordered By: Christina Jarvis on 08-72-3672Dnvmxvtcdxo/100 WBC (Bld)23.0 %Normal. [facility]y HospitalComment on above:Performed By: #### CUU, ADDONUAPLUS, A1C WTH eA, CBC, CMP, LIPID, TSH3 #### [facility] [address] [Entitic mass] by Automated countOrdered By: Christina Jarvis on 39-90-7661XSL (RBC) [Entitic mass]29.8 agLtpzma25.7-34.3FSt. Vincent HospitalComment on above:Performed By: #### CUU, ADDONUAPLUS, A1C WTH eA, CBC, CMP, LIPID, TSH3 #### [facility] [address] Auto (RBC) [Mass/Vol]Ordered By: Christina Jarvis on 99-91-5318AXVT (RBC) [Mass/Vol]33.1 g/dL32.0-35.0Wilson [facility] HospitalV [Entitic volume] by Automated countOrdered By: Christina Jarvis on 41-71-8502CMB (RBC) [Entitic vol]89.9 iCHjoznk59-969TuixffgzzCorey HospitalComment on above:Performed By: #### CUU, ADDONUAPLUS, A1C WTH eA, CBC, CMP, LIPID, TSH3 #### [facility] [address] [place] [address] USAMonocytes [#/volume] in Blood by Automated countOrdered By: Christina Jarvis on 09-53-5825Xptqzblff (Bld) [#/Vol]0.3 10*3/uLNormal0.0-0.8 Corey HospitalComment on above:Performed By: #### CUU, ADDONUAPLUS, A1C WTH eA, CBC, CMP, LIPID, TSH3 #### [facility] [address] [place] [address] USAMonocytes/100 leukocytes in Blood by Automated count Ordered By: Christina Jarvis on 87-99-6310Pcmpjipwl/100 WBC (Bld)7.6 %Normal. [facility]y HospitalComment on above:Performed By: #### CUU, ADDONUAPLUS, A1C WTH eA, CBC, CMP, LIPID, TSH3 #### [facility] [address] [place] [id number] USAMucus [Presence] in Urine by AutomatedOrdered By: Christina Jarvis on 23-89-0040Bgipb Auto Ql (U)Rare [LPF][facility] Neutrophils [#/volume] in Blood by Automated countOrdered By: Christina Jarvis on 83-23-3538Ixlinvcnsyl (Bld) [#/Vol]2.8 10*3/uLNormal1.8-7.7FSt. Vincent HospitalComment on above:Performed By: #### CUU, ADDONUAPLUS, A1C WTH eA, CBC, CMP, LIPID, TSH3 #### [facility] [address] [place] [id number] USANeutrophils/100 leukocytes in Blood by Automated count Ordered By: Christina Jarvis on 62-09-2706Vrphglkubvj/100 WBC (Bld)65.5 %Normal. [facility]y HospitalComment on above:Performed By: #### CUU, ADDONUAPLUS, A1C WTH eA, CBC, CMP, LIPID, TSH3 #### [facility] [address] [place] [address] USANitrite Test strip Ql (U)Ordered By: Christina Jarvis on 53-45-3533Lanlsgl Ql (U)NegativeNegativeCorey HospitalNo Panel InformationOrdered By: Christina Jarvis on 33-23-6940Rpmgkgde Creatinine Clearance (ChemN/AFSt. Vincent HospitalNucleated erythrocytes [Presence] in Blood by Automated countOrdered By: Christina Jarvis on 06-10-2025 Nucleated RBC Auto Ql (Bld)0.2 /100{WBC}0-0.5FSt. Vincent Hospital Platelet mean volume [Entitic volume] in Blood by Automated countOrdered By: Christina Jarvis on 36-87-2715Zdynfahe mean volume (Bld) [Entitic vol]8.1 fLNormal 6.3-10.7FSt. Vincent HospitalComment on above:Performed By: #### CUU, ADDONUAPLUS, A1C WTH eA, CBC, CMP, LIPID, TSH3 #### [facility] [address] [place] [address] USAPlatelets [#/volume] in Blood by Automated countOrdered By: Christina Jarvis on 69-85-8254Tjrnouspy (Bld) [#/Vol]323 10*3/dYBdckjr289-942 Corey HospitalComment on above:Performed By: #### CUU, ADDONUAPLUS, A1C WTH eA, CBC, CMP, LIPID, TSH3 #### [facility] [address] [place] [address] USAPotassium [Moles/volume] in Serum or PlasmaOrdered By: Christina Jarvis on 13-03-6717Srvlpfyll [Moles/Vol]4.1 mmol/LNormal3.5-5.1FSt. Vincent HospitalComment on above:Lipemia is present at a level that could interfere with the result.Hemolysis is present at a level that could interfere with the result.Result Comment: Lipemia is present at a level that could interfere with the result. Hemolysis is present at a level that could interfere with the result.Performed By: #### CUU, ADDONUAPLUS, A1C WTH eA, CBC, CMP, LIPID, TSH3 #### [facility] [address] [place] [address] USAProtein Test strip (U) [Mass/Vol]Ordered By: Christina Jarvis on 74-27-2026Zgupvix (U) [Mass/Vol]NegativeNegativeCorey HospitalProtein [Mass/volume] in Serum or PlasmaOrdered By: Christina Jarvis on 67-97-8916Dvsjply [Mass/Vol]6.8 g/dLNormal6.4-8.9Corey HospitalComment on above:Performed By: #### CUU, ADDONUAPLUS, A1C WTH eA, CBC, CMP, LIPID, TSH3 #### [facility] [address] [place] [address] USASerum globulin measurement by calculation (mass/volume) Ordered By: Christina Jarvis on 87-25-3366Ntmcufoc (S) [Mass/Vol]2.6 g/dLNormal [facility]y HospitalComment on above:Performed By: #### CUU, ADDONUAPLUS, A1C WTH eA, CBC, CMP, LIPID, TSH3 #### [facility] [address] [place] [id number] USASerum or plasma albumin/globulin mass ratioOrdered By: Christina Jarvis on 25-07-5583Jaapdqj/Globulin [Mass ratio]1.6 {ratio}Normal Corey HospitalComment on above:Performed By: #### CUU, ADDONUAPLUS, A1C WTH eA, CBC, CMP, LIPID, TSH3 #### [facility] [address] [place] [id number] USASerum or plasma anion gap determinationOrdered By: Christina Jarvis on 83-75-5983Wdpml gap [Moles/Vol]11.5 mmol/LNormal6.0-15.0Corey HospitalComment on above:Performed By: #### CUU, ADDONUAPLUS, A1C WTH eA, CBC, CMP, LIPID, TSH3 #### [place] [address] USASerum or plasma total cholesterol/high density lipoprotein (HDL) cholesterol mass ratOrdered By: Christina Jarvis on 06-10-2025 Cholesterol.total/Cholesterol in HDL [Mass ratio]3.5 {ratio}Normal<5.0Corey HospitalComment on above:Performed By: #### CUU, ADDONUAPLUS, A1C WTH eA, CBC, CMP, LIPID, TSH3 #### [place] [id number] USASodium [Moles/volume] in Serum or PlasmaOrdered By: Christina Jarvis on 17-75-2808Pwqdos [Moles/Vol]139 mmol/TVsadez199-338TmivzjcyqCorey HospitalComment on above:Lipemia is present at a level that could interfere with the result.Hemolysis is present at a level that could interfere with the result.Result Comment: Lipemia is present at a level that could interfere with the result. Hemolysis is present at a level that could interfere with the result.Performed By: #### CUU, ADDONUAPLUS, A1C WTH eA, CBC, CMP, LIPID, TSH3 #### [place] [id number] USASpecific gravity Test strip (U) [Rel density]Ordered By: Christina Jarvis on 33-61-2242Jywshunh gravity (U) [Rel density]1.0141.001-1.030 Corey HospitalThyrotropin [Units/volume] in Serum or Plasma Ordered By: Christina Jarvis on 88-51-7923QYI Qn2.22 m[IU]/LNormal0.45-5.33Corey HospitalComment on above:Result Comment: PERFORMED BY: [place] [address] PATHOLOGIST COLOR MIXER CHAMP COATES M.D.Performed By: #### MARCUS TERAN, A1C WTH eA, CBC, CMP, LIPID, TSH3 #### [facility] [address] [place] [address] USATriglyceride [Mass/volume] in Serum or PlasmaOrdered By: Christina Jarvis on 50-02-3809Plzwdbkiljpt [Mass/Vol]163 mg/dLHigh0-149Corey HospitalComment on above:TRIG ATP III CLASSIFICATIONTRIG less than 150 mg/dL NormalTRIG 150-199 mg/dL Borderline highTRIG 200-500 mg/dL High TRIG greater than 500 mg/dL Very highStandard traceable to the Center for Disease Conrtrol and Prevention (CDC) test method.Urea nitrogen [Mass/volume] in Serum or PlasmaOrdered By: Christina Jarvis on 06-81-2368Zdwv nitrogen [Mass/Vol]15 mg/dLNormal7-25Corey HospitalComment on above:Performed By: #### BOB TERANONJARRETPLUS, A1C WTH eA, CBC, CMP, LIPID, TSH3 #### [facility] [address] [place] [address] USAUrine Cultureon 19-84-4617Oocsymrl identified Cx Nom (U) >100,000 colonies/ml mixed bacterial skin contaminants 2 Days PERFORMED BY: [place] [address] PATHOLOGIST COLOR MIXER CHAMP COATES M.D.NormalThe [facility] Physician GroupComment on above: Performed By: #### ANSONU, ADDONUAPLUS, A1C [facility] eA, CBC, CMP, LIPID, TSH3 #### [facility] [address] [place] [address] USAUrobilinogen Test strip (U) [Mass/Vol]Ordered By: Christina Jarvis on 74-76-7228Bbanxxxkjruz (U) [Mass/Vol]Normal mg/dLNormalCorey HospitalpH of Urine by Test stripOrdered By: Christina Jarvis on 52-91-0904gG (U)6.0 [pH]Normal5.0-9.0Corey HospitalComment on above:Order Comment: Name Collection Type:: Clean-Voided MidstreamPerformed By: #### CUU, ADDONUAPLUS, A1C [facility] eA, CBC, CMP, LIPID, TSH3 #### [facility] [address] [place] [id number] USAAlanine aminotransferase [Enzymatic activity/volume] in Serum or PlasmaOrdered By: Christina Jarvis on 31-16-4739GMJ [Catalytic activity/Vol]25 U/L7-52Corey HospitalAlbumin [Mass/volume] in Serum or Plasma by Bromocresol green (BCG) dye binding methoOrdered By: Christina Jarvis on 59-26-0720Gyawjmm BCG dye [Mass/Vol]4.1 g/dL3.5-5.7FSt. Vincent HospitalAlkaline phosphatase [Enzymatic activity/volume] in Serum or PlasmaOrdered By: Christina Jarvis on 82-06-2933AQT [Catalytic activity/Vol]84 U/L 34-104Corey HospitalAspartate aminotransferase [Enzymatic activity/volume] in Serum or PlasmaOrdered By: Christina Jarvis on 40-82-8043BZS [Catalytic activity/Vol]25 U/R64-31CfktwhhokCorey HospitalBacteria [Presence] in Urine by AutomatedOrdered By: Christina Jarvis on 59-46-6812Gjljsvjn Auto Ql (U)None seen [HPF]None SeenCorey HospitalBasophils Auto (Bld) [#/Vol]Ordered By: Christina Jarvis on 87-08-1053Dbqwesidj (Bld) [#/Vol] 0.0 10*3/uL0.0-0.2FSt. Vincent HospitalBasophils/100 WBC Auto (Bld) Ordered By: Christina Jarvis on 62-57-0869Itttfvnjc/100 WBC (Bld)1.0 %.Corey HospitalBilirubin Test strip Ql (U)Ordered By: Christina Jarvis on 57-71-6541Xzcfohwdg Ql (U)NegativeNegativeCorey Hospital Bilirubin.total [Mass/volume] in Serum or PlasmaOrdered By: Christina Jarvis on 75-44-0531Ctgckisra [Mass/Vol]0.5 mg/dL0.3-1.0[facility] Calcium [Mass/volume] in Serum or PlasmaOrdered By: Christina Jarvis on 05-24-2024 Calcium [Mass/Vol]9.9 mg/dL8.6-10.3FSt. Vincent HospitalCarbon dioxide, total [Moles/volume] in Serum or PlasmaOrdered By: Christina Jarvis on 57-74-1951NS9 [Moles/Vol]29.1 mmol/L21.0-31.0[facility] Chloride [Moles/volume] in Serum or PlasmaOrdered By: Christina Jarvis on 05-24-2024 Chloride [Moles/Vol]104 mmol/O00-221MhvlvjipdCorey HospitalCholesterol [Mass/volume] in Serum or PlasmaOrdered By: Christina Jarvis on 05-24-2024 Cholesterol [Mass/Vol]175 mg/hA533-327TchbqefyqCorey HospitalComment on above:Chol less than 200 mg/dl low riskChol 201-239 mg/dl borderline riskChol 240 mg/dl and greater high riskCholesterol in LDL Calc [Mass/Vol]Ordered By: Christina Jarvis on 97-28-6965Pwfcubcjapd in LDL [Mass/Vol]90 mg/dL0-100Corey HospitalComment on above:LDL ATP III CLASSIFICATIONLDL less than 100 mg/dL OptimalLDL 100-129 mg/dL Near or above dmwyditQEY843-889 mg/dL Borderline highLDL 160-189 mg/dL HighLDL greater than 189 mg/dL Very high Cholesterol in VLDL Calc [Mass/Vol]Ordered By: Christina Jarvis on 05-24-2024 Cholesterol in VLDL [Mass/Vol]36 mg/dLCorey HospitalColor Auto (U)Ordered By: Christina Jarvis on 78-94-0874Nraqt (U)Light-yellowYellow Corey HospitalCreatinine [Mass/volume] in Serum or Plasma Ordered By: Christina Jarvis on 17-09-0170Lwyzgfmhrm [Mass/Vol]0.85 mg/dL0.60-1.20 Corey HospitalEosinophils Auto (Bld) [#/Vol]Ordered By: Christina Jarvis on 40-83-2518Sdodfsjfcyr (Bld) [#/Vol]0.2 10*3/uL0.0-0.45Corey HospitalEosinophils/100 WBC Auto (Bld)Ordered By: Christina Jarvis on 27-78-8634Vwkgwfazrdo/100 WBC (Bld)3.6 %.[facility] Epithelial cells.squamous [#/area] in Urine sediment by Automated countOrdered By: Christina Jarvis on 62-30-5990Ndchxtxetf cells.squamous Auto (Urine sed) [#/Area]1-2 [HPF]0-2FSt. Vincent HospitalErythrocyte distribution width Auto (RBC) [Ratio]Ordered By: Christina Jarvis on 31-25-3645Pkdtreufdgc distribution width (RBC) [Ratio]14.7 %11.9-15.3FSt. Vincent Hospital Erythrocytes [#/area] in Urine sediment by Automated countOrdered By: Christina Jarvis on 48-23-9030RFS Auto (Urine sed) [#/Area]3-4 [HPF]0-4FSt. Vincent HospitalGlobulin Calc (S) [Mass/Vol]Ordered By: Christina Jarvis on 05-24-2024 Globulin (S) [Mass/Vol]2.3 g/dLCorey HospitalGlucose [Mass/volume] in Serum or PlasmaOrdered By: Christina Jarvis on 92-30-6953Zzxggwi [Mass/Vol]97 mg/eA17-976UfxcpgskqCorey HospitalComment on above:ADA recommended reference rangeRandom Glucose Reference Range is dependent on time and content of last meal. Glucose of more than 200 mg/dL in a nonstressed, ambulatory subject supports the diagnosisof Diabetes Mellitus.Glucose [Mass/volume] in Urine by Test stripOrdered By: Christina Jarvis on 05-24-2024 Glucose Test strip (U) [Mass/Vol]Normal mg/dLNormalCorey HospitalGlucose mean value [Mass/volume] in Blood Estimated from glycated hemoglobinOrdered By: Christina Jarvis on 61-81-3710Vrqtukm glucose Estimated from glycated hemoglobin (Bld) [Mass/Vol]126 mg/dLCorey Hospital Hematocrit Auto (Bld) [Volume fraction]Ordered By: Christina Jarvis on 05-24-2024 Hematocrit (Bld) [Volume fraction]41.0 %34.0-46.4FSt. Vincent HospitalHemoglobin A1c percentageOrdered By: Christina Jarvis on 92-62-9416WpP5n (Bld) [Mass fraction]6.0 %High4.3-5.6FSt. Vincent HospitalComment on above:Increased risk for diabetes: 5.7 - 6.4diabetes: >6.4glycemic control for adults with diabetes: <7.0Hemoglobin Test strip Ql (U)Ordered By: Christina Jarvis on 14-72-3759Ceenrhsalz Ql (U)1+HighNegativeCorey HospitalHemoglobin [Mass/volume] in BloodOrdered By: Christina Jarvis on 05-24-2024 Hemoglobin (Bld) [Mass/Vol]13.6 g/dL11.8-15.4FSt. Vincent Hospital Hyaline casts [#/area] in Urine sediment by Automated countOrdered By: Christina Jarvis on 61-28-8561Zawpqaj casts Auto (Urine sed) [#/Area]None [LPF]0-8 Corey HospitalKetones Test strip Ql (U)Ordered By: Christina Jarvis on 76-21-0726Ahxehdr Ql (U)NegativeNegativeCorey HospitalLeukocyte esterase [Presence] in Urine by Test stripOrdered By: Christina Jarvis on 52-77-6495Eluerpelp esterase Test strip Ql (U)NegativeNegative Core[facility] HospitalLeukocytes [#/area] in Urine sediment by Automated countOrdered By: Christina Jarvis on 46-54-7860AWY Auto (Urine sed) [#/Area]1-2 [HPF]0-4FSt. Vincent HospitalLeukocytes [#/volume] corrected for nucleated erythrocytes in Blood by Automated counOrdered By: Christina Jarvis on 36-73-5590WCO corrected for nucl RBC Auto (Bld) [#/Vol]4.3 10*3/uL 3.8-11.6FSt. Vincent HospitalLymphocytes Auto (Bld) [#/Vol]Ordered By: Christina Jarvis on 89-16-8730Lxdskjhxbzj (Bld) [#/Vol]1.2 10*3/uL1.00-4.8 Core[facility] HospitalLymphocytes/100 WBC Auto (Bld)Ordered By: Christina Jarvis on 21-95-7793Zybgsqnkxnt/100 WBC (Bld)27.[address]H Auto (RBC) [Entitic mass]Ordered By: Christina Jarvis on 54-88-0639FSE (RBC) [Entitic mass]29.4 pg24.7-34.3FSt. Vincent HospitalMCHC Auto (RBC) [Mass/Vol]Ordered By: Christina Jarvis on 10-89-3088DRUA (RBC) [Mass/Vol]33.2 g/dL32.0-35.0[facility] HospitalMCV Auto (RBC) [Entitic vol] Ordered By: Christina Jarvis on 29-71-4150HAM (RBC) [Entitic vol]88.5 xP80-288 [facility] HospitalMonocytes Auto (Bld) [#/Vol]Ordered By: Christina Jarvis on 62-50-9021Cqmvbugzc (Bld) [#/Vol]0.4 10*3/uL0.0-0.8[facility] HospitalMonocytes/100 WBC Auto (Bld)Ordered By: Christina Jarvis on 05-24-2024 Monocytes/100 WBC (Bld)8.6 %.[facility] HospitalMucus [Presence] in Urine by AutomatedOrdered By: Christina Jarvis on 42-80-7125Cdpal Auto Ql (U)Rare [LPF][facility] HospitalNeutrophils Auto (Bld) [#/Vol]Ordered By: Christina Jarvis on 37-22-7500Qsnmufyqhef (Bld) [#/Vol]2.5 10*3/uL1.8-7.7FSt. Vincent HospitalNeutrophils/100 WBC Auto (Bld)Ordered By: Christina Jarvis on 39-14-3831Rujylrsofql/100 WBC (Bld)59.3 %.[facility] Nitrite Test strip Ql (U)Ordered By: Christina Jarvis on 93-68-0302Qehndef Ql (U) NegativeNegativeCorey HospitalNo Panel InformationOrdered By: Christina Jarvis on 01-70-7477Vqgbmsees GFR (CKD-EPI)> 60.0 mL/MinCorey HospitalPharmacy Creatinine Clearance (ChemN/AFSt. Vincent HospitalNucleated erythrocytes [Presence] in Blood by Automated count Ordered By: Christina Jarvis on 84-37-1772Pakhtyaen RBC Auto Ql (Bld)0.1 /100{WBC} 0-0.5FSt. Vincent HospitalPlatelet mean volume Auto (Bld) [Entitic vol]Ordered By: Christina Jarvis on 24-80-5722Gtmcbrqz mean volume (Bld) [Entitic vol]7.9 fL6.3-10.7FSt. Vincent HospitalPlatelets Auto (Bld) [#/Vol] Ordered By: Christina Jarvis on 03-58-1414Exjkvcupy (Bld) [#/Vol]325 10*3/cM887-451 [facility] HospitalPotassium [Moles/volume] in Serum or Plasma Ordered By: Christina Jarvis on 64-21-1195Muwrcjqsk [Moles/Vol]4.2 mmol/L3.5-5.1 [facility] HospitalProtein Test strip (U) [Mass/Vol]Ordered By: Christina Jarvis on 72-26-8648Vygcnbu (U) [Mass/Vol]NegativeNegativeCorey HospitalProtein [Mass/volume] in Serum or PlasmaOrdered By: Christina Jarvis on 69-86-5613Relxjoh [Mass/Vol]6.4 g/dL6.4-8.9[facility] HospitalRBC Auto (Bld) [#/Vol]Ordered By: Christina Jarvis on 47-15-5169YXW (Bld) [#/Vol]4.63 10*6/uL3.60-5.00[facility] Hospitalerum or plasma albumin/globulin mass ratioOrdered By: Christina Jarvis on 05-24-2024 Albumin/Globulin [Mass ratio]1.8 {ratio}[facility] Hospitalerum or plasma anion gap determinationOrdered By: Christina Jarvis on 50-98-6754Axyux gap [Moles/Vol]10.1 mmol/L6.0-15.0[facility] Hospitalerum or plasma high density lipoprotein (HDL) cholesterol measurementOrdered By: Christina Jarvis on 93-79-2487Crtbrpyrmby in HDL [Mass/Vol]49 mg/vW17-75KosphgtmhCorey HospitalComment on above:HDL CHOL ATP-III CLASSIFICATION Cardiovascular RiskHDL > or equal to 60 mg/dL LOWHDL < 40 mg/dL HIGHSerum or plasma total cholesterol/high density lipoprotein (HDL) cholesterol mass ratOrdered By: Christina Jarvis on 84-29-6602Mcmerloeaas.total/Cholesterol in HDL [Mass ratio]3.6 {ratio}<5.0[facility] Hospitalodium [Moles/volume] in Serum or PlasmaOrdered By: Christina Jarvis on 97-94-1784Kdnoox [Moles/Vol]139 mmol/O775-996 [facility] Hospitalpecific gravity Test strip (U) [Rel density] Ordered By: Christina Jarvis on 52-08-9548Hnizvzeq gravity (U) [Rel density]1.016 1.001-1.030[facility] HospitalThyrotropin [Units/volume] in Serum or PlasmaOrdered By: Christina Jarvis on 25-63-0572ACK Qn2.10 m[IU]/L0.45-5.33 [facility] HospitalTriglyceride [Mass/volume] in Serum or Plasma Ordered By: Christina Jarvis on 85-92-7269Banuwjhjexwc [Mass/Vol]182 mg/dLHigh0-149 [facility] HospitalComment on above:TRIG ATP III CLASSIFICATIONTRIG less than 150 mg/dL NormalTRIG 150-199 mg/dL Borderline highTRIG 200-500 mg/dL High TRIG greater than 500 mg/dL Very highStandard traceable to the Center for Disease Conrtrol and Prevention (CDC) test method. Urea nitrogen [Mass/volume] in Serum or PlasmaOrdered By: Christina Jarvis on 86-57-4688Zzve nitrogen [Mass/Vol]12 mg/dL7-25[facility] Urine appearanceOrdered By: Christina Jarvis on 12-37-2527Ezzzjuzfvo (U)ClearClear [facility] HospitalUrine culture routineOrdered By: Christina Jarvis on 70-99-4051Rnbjjaef identified Cx Nom (U)2 DaysCorey HospitalUrobilinogen Test strip (U) [Mass/Vol]Ordered By: Christina Jarvis on 78-92-1426Qotvtzjwpphw (U) [Mass/Vol]Normal mg/dLNormalCorey HospitalWBC Auto (Bld) [#/Vol]Ordered By: Christina Jarvis on 12-31-9361VXC (Bld) [#/Vol]4.3 10*3/uL3.8-11.6FSt. Vincent HospitalpH Test strip (U)Ordered By: Christina Jarvis on 31-42-8167pX (U)6.5 [pH]5.0-9.0[facility] HospitalAlanine aminotransferase [Enzymatic activity/volume] in Serum or PlasmaOrdered By: Christina Jarvis on 61-66-8372MHV [Catalytic activity/Vol]20 U/L 7-52[facility] HospitalAlbumin [Mass/volume] in Serum or Plasma by Bromocresol green (BCG) dye binding methoOrdered By: Christina Jarvis on 02-04-2023 Albumin BCG dye [Mass/Vol]3.9 g/dL3.5-5.7FSt. Vincent Hospital Alkaline phosphatase [Enzymatic activity/volume] in Serum or PlasmaOrdered By: Christina Jarvis on 90-09-8874RIK [Catalytic activity/Vol]84 U/X79-292YvhyetfcnCorey HospitalAspartate aminotransferase [Enzymatic activity/volume] in Serum or PlasmaOrdered By: Christina Jarvis on 61-79-3316IFJ [Catalytic activity/Vol]20 U/I31-10DyzxnuhptCorey HospitalAutomated erythrocytes count in urine sediment (number/area)Ordered By: Christina Jarvis on 93-46-8228EOR Auto (Urine sed) [#/Area]3-4 [HPF]0-4FSt. Vincent HospitalAutomated leukocytes count in urine sediment (number/area)Ordered By: Christina Jarvis on 58-57-9606GWE Auto (Urine sed) [#/Area]None seen [HPF]0-4FSt. Vincent HospitalBasophils Auto (Bld) [#/Vol]Ordered By: Christina Jarvis on 02-04-2023 Basophils (Bld) [#/Vol]0.0 10*3/uL0.0-0.2FSt. Vincent Hospital Basophils/100 WBC Auto (Bld)Ordered By: Christina Jarvis on 05-73-8193Yiierfwog/100 WBC (Bld)1.1 %.[facility] HospitalBilirubin Test strip Ql (U) Ordered By: Christina Jarvis on 04-77-2572Lolxymcul Ql (U)NegativeNegativeCorey HospitalBilirubin.total [Mass/volume] in Serum or PlasmaOrdered By: Christina Jarvis on 05-23-3527Jqdbywthq [Mass/Vol]0.5 mg/dL0.3-1.0[facility] HospitalCalcium [Mass/volume] in Serum or PlasmaOrdered By: Christina Jarvis on 37-15-8801Kkmlunm [Mass/Vol]9.4 mg/dL8.6-10.3FSt. Vincent HospitalCarbon dioxide, total [Moles/volume] in Serum or PlasmaOrdered By: Christina Jarvis on 87-21-6418YH1 [Moles/Vol]30.3 mmol/L21.0-31.0[facility] HospitalChloride [Moles/volume] in Serum or PlasmaOrdered By: Christina Jarvis on 23-87-9454Ihrrbfsb [Moles/Vol]104 mmol/C83-149ApmrvzgmaCorey HospitalCholesterol [Mass/volume] in Serum or PlasmaOrdered By: Christina Jarvis on 28-72-6254Oukfonfyusp [Mass/Vol]173 mg/nX462-645UyynzlwrxCorey HospitalComment on above:Chol less than 200 mg/dl low riskChol 201-239 mg/dl borderline riskChol 240 mg/dl and greater high riskCholesterol in LDL Calc [Mass/Vol]Ordered By: Christina Jarvis on 94-35-1527Rhppwniolzk in LDL [Mass/Vol]89 mg/dL0-100[facility] HospitalComment on above:LDL ATP III CLASSIFICATIONLDL less than 100 mg/dL OptimalLDL 100-129 mg/dL Near or above xvmyyqwYKM764-782 mg/dL Borderline highLDL 160-189 mg/dL HighLDL greater than 189 mg/dL Very highCholesterol in VLDL Calc [Mass/Vol]Ordered By: Christina Jarvis on 91-60-3371Vlhwzsqczvi in VLDL [Mass/Vol]37 mg/dLCorey HospitalColor Auto (U)Ordered By: Christina Jarvis on 86-64-9989Hcziw (U)YellowYellow [facility] HospitalCreatinine [Mass/volume] in Serum or Plasma Ordered By: Christina Jarvis on 09-04-1400Bwdapxjhqb [Mass/Vol]0.84 mg/dL0.60-1.20 [facility] HospitalEosinophils Auto (Bld) [#/Vol]Ordered By: Christina Jarvis on 00-80-4045Zbppnlgpclr (Bld) [#/Vol]0.2 10*3/uL0.0-0.45[facility] HospitalEosinophils/100 WBC Auto (Bld)Ordered By: Christina Jarvis on 01-89-6390Dxoapwanaau/100 WBC (Bld)5.4 %.[facility] Erythrocyte distribution width Auto (RBC) [Ratio]Ordered By: Christina aJrvis on 95-62-4572Pbntujrghay distribution width (RBC) [Ratio]14.9 %11.9-15.3FSt. Vincent HospitalGlobulin Calc (S) [Mass/Vol]Ordered By: Christina Jarvis on 67-19-4860Zgdngtjh (S) [Mass/Vol]2.6 g/dLCorey Hospital Glucose [Mass/volume] in Serum or PlasmaOrdered By: Christina Jarvis on 02-04-2023 Glucose [Mass/Vol]102 mg/hW87-290NwuykjttqCorey HospitalComment on above:ADA recommended reference rangeRandom Glucose Reference Range is dependent on time and content of last meal. Glucose of more than 200 mg/dL in a nonstressed, ambulatory subject supports the diagnosisof Diabetes Mellitus. Hematocrit Auto (Bld) [Volume fraction]Ordered By: Christina Jarvis on 02-04-2023 Hematocrit (Bld) [Volume fraction]39.8 %34.0-46.4FSt. Vincent HospitalHemoglobin [Mass/volume] in BloodOrdered By: Christina Jarvis on 02-04-2023 Hemoglobin (Bld) [Mass/Vol]13.1 g/dL11.8-15.4FSt. Vincent Hospital Ketones Auto test strip (U) [Mass/Vol]Ordered By: Christina Jarvis on 02-04-2023 Ketones (U) [Mass/Vol]NegativeNegativeCorey Hospital Laboratory - UrinalysisOrdered By: Christina Jarvis on 55-51-9459Cxvoqdt casts LM Ql (Urine sed)None seen [LPF]0-8[facility] HospitalLeukocytes [#/volume] corrected for nucleated erythrocytes in Blood by Automated coun Ordered By: Christina Jarvis on 21-81-5892IYI corrected for nucl RBC Auto (Bld) [#/Vol]4.1 10*3/uL3.8-11.6FSt. Vincent HospitalLymphocytes Auto (Bld) [#/Vol]Ordered By: Christina Jarvis on 71-31-2989Lkpzzbadyow (Bld) [#/Vol]1.0 10*3/uL1.00-4.8[facility] HospitalLymphocytes/100 WBC Auto (Bld) Ordered By: Christina Jarvis on 64-86-2316Zretcxhcdvl/100 WBC (Bld)25.3 [address]H Auto (RBC) [Entitic mass]Ordered By: Christina Jarvis on 51-59-1938AEL (RBC) [Entitic mass]29.3 pg24.7-34.3FSt. Vincent HospitalMCHC Auto (RBC) [Mass/Vol]Ordered By: Christina Jarvis on 93-43-5039RLOS (RBC) [Mass/Vol]32.9 g/dL32.0-35.0[facility] HospitalMCV Auto (RBC) [Entitic vol]Ordered By: Christina Jarvis on 07-19-5230YBJ (RBC) [Entitic vol]89.2 lT34-773NeawgzlxdCorey HospitalMonocytes Auto (Bld) [#/Vol]Ordered By: Christina Jarvis on 63-20-8414Rnqhjiwdh (Bld) [#/Vol]0.4 10*3/uL0.0-0.8[facility] HospitalMonocytes/100 WBC Auto (Bld)Ordered By: Christina Jarvis on 88-52-0661Pnrcajcyx/100 WBC (Bld)9.8 %.[facility] Neutrophils Auto (Bld) [#/Vol]Ordered By: Christina Jarvis on 27-81-2912Kdrnrtdakht (Bld) [#/Vol]2.4 10*3/uL1.8-7.7FSt. Vincent HospitalNeutrophils/100 WBC Auto (Bld)Ordered By: Christina Jarvis on 80-54-8733Fxgldmcdkvq/100 WBC (Bld) 58.4 %.[facility] HospitalNitrite Test strip Ql (U)Ordered By: Christina Jarvis on 37-61-8313Bbvmkan Ql (U)NegativeNegativeCorey HospitalNo Panel InformationOrdered By: Christina Jarvis on 02-04-2023 Estimated GFR (CKD-EPI)> 60.0 mL/MinCorey HospitalPharmacy Creatinine Clearance (ChemN/AFSt. Vincent HospitalNucleated erythrocytes [Presence] in Blood by Automated countOrdered By: Christina Jarvis on 58-91-1189Idqqzfgda RBC Auto Ql (Bld)0.1 /100{WBC}0-0.5FSt. Vincent HospitalPlatelet mean volume Auto (Bld) [Entitic vol]Ordered By: Christina Jarvis on 74-51-8029Ysuapvbn mean volume (Bld) [Entitic vol]7.8 fL6.3-10.7 [facility] HospitalPlatelets Auto (Bld) [#/Vol]Ordered By: Christina Jarvis on 30-76-3965Rxyisacug (Bld) [#/Vol]308 10*3/uE221-115LasuqgwvnCorey HospitalPotassium [Moles/volume] in Serum or PlasmaOrdered By: Christina Jarvis on 53-32-5714Xmelqlbzw [Moles/Vol]4.4 mmol/L3.5-5.1FSt. Vincent HospitalProtein Auto test strip (U) [Mass/Vol]Ordered By: Christina Jarvis on 31-36-5949Iknvywn (U) [Mass/Vol]NegativeNegativeCorey HospitalProtein [Mass/volume] in Serum or PlasmaOrdered By: Christina Jarvis on 57-62-1901Iuwljkm [Mass/Vol]6.5 g/dL6.4-8.9[facility] HospitalRBC Auto (Bld) [#/Vol]Ordered By: Christina Jarvis on 59-15-3209KZE (Bld) [#/Vol]4.46 10*6/uL3.60-5.00[facility] Hospitalerum or plasma albumin/globulin mass ratioOrdered By: Christina Jarvis on 02-04-2023 Albumin/Globulin [Mass ratio]1.5 {ratio}[facility] Hospitalerum or plasma anion gap determinationOrdered By: Christina Jarvis on 53-11-2779Yeboj gap [Moles/Vol]10.1 mmol/L6.0-15.0[facility] Hospitalerum or plasma high density lipoprotein (HDL) cholesterol measurementOrdered By: Christina Jarvis on 65-42-3860Kzwwknqctfr in HDL [Mass/Vol]47 mg/uX57-98JpryzelmpCorey HospitalComment on above:HDL CHOL ATP-III CLASSIFICATION Cardiovascular RiskHDL > or equal to 60 mg/dL LOWHDL < 40 mg/dL HIGHSerum or plasma total cholesterol/high density lipoprotein (HDL) cholesterol mass ratOrdered By: Christina Jarvis on 61-90-4886Jeotwbsmgfd.total/Cholesterol in HDL [Mass ratio]3.7 {ratio}<5.0[facility] Hospitalodium [Moles/volume] in Serum or PlasmaOrdered By: Christina Jarvis on 93-91-2129Hiebwi [Moles/Vol]140 mmol/K927-142 [facility] Hospitalpecific gravity Auto test strip (U) [Rel density]Ordered By: Christina Jarvis on 51-50-3538Nuswrltb gravity (U) [Rel density] 1.0101.001-1.030[facility] Hospitalquamous epithelial cells detection in urine sediment by light microscopyOrdered By: Christina Jarvis on 73-99-0132Sxmdrhwkml cells.squamous LM Ql (Urine sed)0-1 [HPF]0-2FSt. Vincent HospitalThyrotropin [Units/volume] in Serum or PlasmaOrdered By: Christina Jarvis on 57-71-1594SXH Qn2.01 m[IU]/L0.45-5.33[facility] HospitalTriglyceride [Mass/volume] in Serum or PlasmaOrdered By: Christina Jarvis on 59-96-5170Einwaarmeldl [Mass/Vol]186 mg/dL0-149[facility] Comment on above:TRIG ATP III CLASSIFICATIONTRIG less than 150 mg/dL NormalTRIG 150-199 mg/dL Borderline highTRIG 200-500 mg/dL High TRIG greater than 500 mg/dL Very highStandard traceable to the Center for Disease Conrtrol and Prevention (CDC) test method.Urea nitrogen [Mass/volume] in Serum or PlasmaOrdered By: Christina Jarvis on 83-92-0429Jvrm nitrogen [Mass/Vol]15 mg/dL7-25[facility] HospitalUrine bacteria detection by automated methodOrdered By: Christina Jarvis on 54-97-3546Ligkkzgo Auto Ql (U)None seenNone SeenCorey HospitalUrine clarity by refractometry automatedOrdered By: Christina Jarvis on 28-28-4805Cidvgei Refractometry automated (U)ClearCleSouthwest General Health CenterUrine glucose measurement by automated test strip (mass/volume) Ordered By: Christina Jarvis on 74-76-0033Ncfazyv Auto test strip (U) [Mass/Vol] Normal mg/dLNormalCorey HospitalUrine hemoglobin detection by automated test stripOrdered By: Christina Jarvis on 94-19-8470Xqcsgdodlj Auto test strip Ql (U)TraceNegativeCorey HospitalUrine leukocyte esterase detection by automated test stripOrdered By: Christina Jarvis on 02-04-2023 Leukocyte esterase Auto test strip Ql (U)NegativeNegativeCorey HospitalUrobilinogen Auto test strip (U) [Mass/Vol]Ordered By: Christina Jarvis on 21-80-7776Wraigbquqmjz (U) [Mass/Vol]Normal mg/dLNormalCorey HospitalWBC Auto (Bld) [#/Vol]Ordered By: Christina Jarvis on 27-33-0643QNF (Bld) [#/Vol]4.1 10*3/uL3.8-11.6FSt. Vincent Hospital pH Auto test strip (U)Ordered By: Christina Jarvis on 01-79-8934aL (U)7.0 [pH] 5.0-9.0Corey HospitalH PYLORI TISSUEon 12-22-2022H PYL TISSUE, UREASENegativeNormalNEGATIVEThe Magruder HospitalComment on above: Performed By: #### HPYLT #### [facility] [address] [address] [address] Raffy HoytAmbulatory Clinical Summaryon 96-26-7271Qcdnilcwpc Clinical Summary{[id number]-08-18-9w-41-32-0u-64-70-ae-31}CD:[id number] Health Perrysburg HospitalAmbulatory Clinical Summary {[id number]-[id number]-6w-96-2y-a0-c0-db-9b}CD:[id number] HospitalPatient Educationon 30-18-1591Wvugofp EducationUrology Hematuria, Adult Hematuria is blood in the urine. Blood may be visible in the urine, or it may be identified with a test. This condition can be caused by infections of the bladder, urethra, kidney, or prostate. Otherpossible causes include: ? Kidney stones. ? Cancer of the urinary tract. ? Too much calcium in the urine. ? Conditions that are passed from parent to child (inherited conditions). ? Exercise that requires a lot of energy. Infections can usually be treated with medicine, and a kidney stone usually will pass through your urine. If neither of these is the cause of your hematuria, more tests may be needed to identify the cause of your symptoms. It is very important to tell your health care provider about any blood in your urine, even if it ispainless or the blood stops without treatment. Blood in the urine, when it happens and then stops and then happens again, can be a symptom of a very serious condition, including cancer. There is no pain in the initial stages of many urinary cancers. Follow these instructions at home: Medicines ? Take wtuf-nba-cpbonnd and prescription medicines only as told by your health care provider. ? If you were prescribed an antibiotic medicine, take it as told by your health care provider. Do not stop taking the antibiotic even if you start to feel better. Eating and drinking ? Drink enough fluid to keep your urine clear or pale yellow. It is recommended that you drink 3?4 quarts (2.8?3.8 L) a day. If you have been diagnosed with an infection, it is recommended that you drink cranberry juice in addition to large amounts of water. ? Avoid caffeine, tea, and carbonated beverages. These tend to irritate the bladder. ? Avoid alcohol because it may irritate the prostate (men). General instructions ? If you have been diagnosed with a kidney stone, follow your health care provider's instructions about straining your urine to catch the stone. ? Empty your bladder often. Avoid holding urine for long periods of time. ? If you are female: ? After a bowel movement, wipe from front to back and use each piece of toilet paper only once. ? Empty your bladder before and after sex. ? Pay attention to any changes in your symptoms. Tell your health care provider about any changes or any new symptoms. ? It is your responsibility to get your test results. Ask your health care provider, or the department performing the test, when your results will be ready. ? Keep all follow-up visits as told by your health care provider. This is important. Contact a health care provider if: ? You develop back pain. ? You have a fever. ? You have nausea or vomiting. ? Your symptoms do not improve after 3 days. ? Your symptoms get worse. Get help right away if: ? You develop severe vomiting and are unable take medicine without vomiting. ? You develop severe pain in your back or abdomen even though you are taking medicine. ? You pass a large amount of blood in your urine. ? You pass blood clots in your urine. ? You feel very weak or like you might faint. ? You faint. Summary ? Hematuria is blood in the urine. It has many possible causes. ? It is very important that you tell your health care provider about any blood in your urine, even if it is painless or the blood stops without treatment. ? Take lxrb-yig-svdoadq and prescription medicines only as told by your health care provider. ? Drink enough fluid to keep your urine clear or pale yellow. This information is not intended to replace advice given to you by your health care provider. Make sure you discuss any questions you have with your health care provider. Document Released: 10/10/2006 Document Revised: 03/05/2020 Document Reviewed: 11/12/2017 [employer] Patient Education ? 2019 [employer] Office/Clinic Noteon 03-60-5374Lqlbnxu Office/Clinic NoteChief Complaint 3 week f/u to cysto This patient is here to complete his hematuria work-up. She had recent cystoscopic examination. Sheis here to review labs. [facility] Staff Pt is here for a 3 week f/u for hematuria work up and is to go over results today of the testing. CT was done 02/03/21. FISH/CYTO is negative. SInce the Cysto pt denies seeing any blood. Pt was unable to give UA sample today. Dysuria: no pain or burning Incomplete bladder emptying: feels like she is emptying Hematuria: denies any blood in urine Frequency: normal Urgency: none Nocturia: none Stream: strong stream, no hesitation Post void dripping: none Wearing pads/ Depends: _ Urge incontinence: none Stress incontinence: none Incontinence without Sensory Awareness: none Abdominal pain: none History of Present Illness Reviewed CT, FISH/Cyto, and Cysto op report. There have been no associated fever, chills, flank pain or blood in the urine. Pt. denies any pain/burning with urination at this time. Review of Systems PHQ Score Initial Depression Screen Score: 0 ROS - Provider Constitutional: denies weight loss, denies hot flashes. Eyes: denies eye problems. Gastrointestinal: denies nausea, denies vomiting. Cardiovascular: denies chest pain or angina. Integumentary: no dryness Musculoskeletal: denies musculoskeletal symptoms. ENMT: denies otolaryngeal symptoms. Respiratory: no shortness of breath. Heme/Lymph: denies easy bleeding tendency, denies easy bruising tendency. Psychiatric: no confusion, no anxiety. Genitourinary: denies vaginal discharge, denies incontinence, denies dysuria, denies hematuria, denies urinary frequency, denies amenorrhea, denies menorrhagia, denies abnormal bleeding, denies pelvic pain, denies genital sores, and denies decreased libido. Physical Exam Vitals & Measurements HR: 86(Peripheral) RR: 18 BP: 150/90 HT: 175 cm HT: 175.0 cm WT: 90 kg WT: 90.0 kg BMI: 29.39 General Appearance: alert , no acute distress, well nourished, well developed female. Genitourinary: bladder nonpalpable, no flank pain. Assessment/Plan Hematuria work-up has been negative. Patient and I went over all test results. She no longer has hematuria. Most likely there was infection and/or irritation that caused this and it has resolved. I be glad to see her back in the office on an as-needed basis. Copies of the studies were given to the patient and also sent to her primary care physician Dr. Jarvis. 1. Gross hematuria (R31.0: Gross hematuria) Pt. denies seeing any blood since the last encounter. Neg. FISH/Cyto done 02/19/2021. CT done on 02/03/21 is unremarkable. S/p neg. Cystoscopy 02/12/21. Pt. is doing well overall w/ her urination at this time. All questions/concerns were discussed. Pt. to call the office if sheencounters any issuesprior. Pt. acknowledges understanding. 2. Other urethral stricture, female (N35.82: Other urethral stricture, female) S/p Cysto/UD 08/2018. I have reviewed the previous health record information and history for this pt. from Dr. Acosta. Follow-up With When Contact Information Dave Krueger MD, Moisés Nye, [facility] [address] [id number]- Additional Instructions: prn Patient Education Hematuria, Adult I, Elizabet Elliott , personally scribed for Dr. Acosta on 03/12/2021 09:07:13. . Documentation recorded by the scribe, Elizabet Elliott, accurately reflects the services(s) I performed and decisions made by me. Authenticated by Dr. Acosta on 03/12/2021 09:11:01. Problem List/Past Medical History Ongoing Arthritis Depression Hyperlipidemia Hypertension Historical No qualifying data Procedure/Surgical History Cystoscopy (02/12/2021), Arthroplasty of knee, Arthroplasty of the hip, Breast surgery. Medications Crestor 5 mg Tab, Oral, Daily Effexor XR 150 mg Cap-ER, Oral, Daily losartan, 50 mg, Oral, Daily Multivitamins and Minerals Restasis 0.05% Emulsion, Eye-Both, q12hr Allergies No Known Medication Allergies Social History Alcohol - Denies Alcohol Use, 01/27/2021 Tobacco - Denies Tobacco Use, 01/27/2021 Never (less than 100 in lifetime) Tobacco Use:., 03/12/2021 Never (less than 100 in lifetime) Tobacco Use:. Never Smokeless Tobacco Use:., 01/27/2021 Family History Arthritis: Father. Hyperlipidemia: Mother. Immunizations Vaccine Date Status SARS-CoV-2 (COVID-19) mRNA BNT-162b2 vax 11/24/[address] scan shows no evidence of urinary tract lesions that might cause the hematuria. Urine cytology and FISH are both negative and a cystoscopic examination did not show any evidence of tumors obstructions or mucosal lesions. [facility] HospitalComment on above:Result Comment: Electronically Signed By: Dave Krueger MD, Moisés Nye\.br\Date and Time Signed: 03/12/2109:24 EDT\.br\Electronically Co-Signed By: Elizabet Elliott MA\.br\Date and Time Co- Signed: 03/12/21 09:07 EDTLab Reportson [id number] Reports [id number]:127NoMercy Health Perrysburg HospitalRAD - CT Reporton [id number] - CT Report [id number]:127NoMercy Health Perrysburg HospitalUroVysion Fish and Urine Cyto ([facility])on [id number] & UCDiagnosis InfoInvalid Interpretation [facility] HospitalComment on above: Result Comment: A:Urine,Urine:Voided Diagnosis Summary - Diagnosis Summary - The UroVysion FISH study detected normal copy numbers for chromosomes 3, 7, 17,and 9p21. 183 cells were analyzed in this evaluation. No evidence of aneuploidy for chromosomes 3, 7, or 17 or deletion of the 9p21 locus was found in cells present in this specimen. This test does not rule out the possibility of a low grade non-invasive papillary urothelial carcinoma. These findings should be correlated with cytology and cystoscopy results.* Microscopic Notes - Microscopic Notes - Abnormal cells 9p21 deletions: Abnormal cells aneploid events: Total cells analyzed: 183 Hematuria: Gross Description Site ID:A color Yellow fixative Alcohol Received 70 mls of clear yellow fluid with the patient's name and, Urine on the vial. Electronically signed by : on: 02/19/2021 10:26:09Performed By: #### [id number] ####[facility] Quhhbxhcbo856 [facility], [id number] Summary.on 52-26-1336Htjeel Summary. CD:[id number]:[id number]+PGhlYWQ+XV3VGRZyD30xtBDhrL2MZ6vAWV7CQXNFCQEIXM9FNA0ar UT5JQtdV1OqfpLi [file] c2U6 (more content not included)...NormalMarion HospitalConsent for Procedure/Surgeryon 93-14-3704Pmuixom for Procedure/Surgery [id number]#1.00CD:127Marion HospitalConsent for Treatmenton 71-13-4939Butlarl for Treatment [id number]#1.00CD:[address] [place], [place] [address]Discharge Instructionson 57-25-1563Nbkszkdhm Instructions [id number]#1.00CD:[address] [place], [place] [address]IntraOperative Documentson 35-30-1603JqbxwCaxjgdufs Documents [id number]#1.00CD:127NormalFisher [facility] HospitalMain OR Intraoperative Recordon 47-95-8857Plej OR Intraoperative Record IntraOp Document Type FTURO Summary Primary Physician: Moisés Acosta Jr., MD Finalized Date/Time: 02/12/21 14:26:27 Pt. Name: KAYLEIGH BROWN /Sex: 1950 Female Med Rec #: [id number] Physician: Moisés Acosta Jr., MD Financial #: [id number] Pt. Type: O Room/Bed: / Admit/Disch: 02/12/21 13:00:12 - Institution: Case Times FTURO Entry 1 Patient Times In Room 02/12/21 14:17:00 Out Room 02/12/21 14:26:00 Procedure Times Start 02/12/21 14:23:00 Stop 02/12/21 14:24:00 Anesthesia Times Last Modified By: Bhavani Roldan RN 02/12/21 14:26:22 Case Attendance FTURO Entry 1 Entry 2 Entry 3 Case Attendee Moisés Acosta Jr., MD [place] TICKET CLERK, Bhavani Walters RN Role Performed Surgeon - Primary Scrub - Primary Administrative Liaison - Primary Time In 02/12/21 14:17:00 02/12/21 14:17:00 02/12/21 14:17:00 Time Out 02/12/21 14:26:00 02/12/21 14:26:00 02/12/21 14:26:00 Procedure CYSTOSCOPY LOCAL(.) CYSTOSCOPY LOCAL(.) CYSTOSCOPY LOCAL(.) Comments Last Modified By: Yuli RN, Bhavani Roldan RN, Bhavani Cowan RN 02/12/21 14:26:23 02/12/21 14:26:23 02/12/21 14:26:23 Surgical Procedures FTURO Entry 1 Procedure Description Procedure CYSTOSCOPY LOCAL Modifiers . Surgeon Description CYSTOSCOPY; FISH AND CYTOLOGY Primary Procedure Yes Primary Surgeon Moisés Acosta Jr., MD Start 02/12/21 14:23:00 Stop 02/12/21 14:24:00 Anesthesia Type Local Surgical Service Urology Wound Class 2 - Clean-Contaminated Last Modified By: Bhavani Roldan RN 02/12/21 14:24:58 General Case Data FTURO Pre-Care Text: Classifies surgical wound, implements aseptic technique, initiates traffic control Entry 1 Case Information OR URO 1 FT Case Level None Wound Class 2 - Clean-Contaminated Specialty Urology Preop Diagnosis GROSS HEMATURIA Postop Same As Preop Yes Postop Diagnosis GROSS HEMATURIA Outcomes Met? Yes Last Modified By: Bhavani Roldan RN 02/12/21 13:11:55 Post-Care Text: The patient is free from signs and symptoms of infection EU IntraOp - FTURO Pre-Care Text: Implements protective measures prior to operative or invasive procedure, confirms identity before the operative or invasive procedure, verifies operative procedure, surgical site, and laterality Entry 1 EU Perioperative Protocols Procedure(s) CYSTOSCOPY LOCAL(.) Patient Identity Birthday, ID Band Verified (select at Check, Patient least 2): Participation Consents / H and P HandP, Surgery/Procedure Operative Site N/A Verified Consent Marking Verified Surgical Site Yes Laterality Verified Yes Verified Procedure Verified Yes Correct Patient Yes Position Verified Availability Equipment, Medication Time Out Dave Krueger MD, Moisés Nye, Verified (If Participants [place] MARSHALL, Guerita Pham, Applicable) Bhavani Roldan RN Time Out Complete 02/12/21 14:18:00 Allergies Reviewed? Yes Allergies Reviewed Self/Patient With Body Position Supine Prep Area PERINEUM Prep Agents Betadine Solution Skin. Condition Dry, Warm, Unable to Description UNABLE TO VISUALIZE DUE Visualize TO PATIENT PARTIALLY CLOTHED Additional FISH, Other (See Specimens Comment FISH AND CYTOLOGY Specimens Collected Comment) Vitals - EU Blood Pressure 159/100 Pulse 88 bpm Respirations 18 br/min SPO2 EBL 0 IandO - EU Total Intake 0 mL Total Output 0 mL Outcomes Met? Yes Last Modified By: Bhavani Roldan RN 02/12/21 14:19:00 Post-Care Text: The patient is free from signs and symptoms of injury caused by extraneous objects Sign Out FTURO Entry 1 Before Patient Leaves OR Nurse verbally Yes Nurse verbally Yes confirms with the confirms with the team the name of team that the procedure(s) instrument, sponge, recorded and needle counts are correct (or N/A) Nurse verbally Yes Nurse verbally Yes confirms with the confirms with the team how the team whether there specimen is labeled are any equipment (including patient problems to be name), if applicable addressed Sign Out Complete 02/12/21 14:24:00 Last Modified By: Bhavani Roldan RN 02/12/21 14:24:53 Case Comments Finalized By: Bhavani Roldan RN Document Signatures Signed By: Bhavani Roldan RN 02/12/21 14:26Marion HospitalMain OR Preoperative Recordon 28-49-9388Vbxa OR Preoperative RecordHolding Area Document Type FTURO Summary Primary Physician: Moisés Acosta Jr., MD Finalized Date/Time: 02/12/21 13:28:02 Pt. Name: STEPHANIE KAYLEIGHVero Bingham D.O.B./Sex: 1950 Female Med Rec #: [id number] Physician: Moisés Acosta Jr., MD Financial #: [id number] Pt. Type: O Room/Bed: / Admit/Disch: 02/12/21 13:00:12 - Institution: Case Times Holding FTURO Pre-Care Text: Verifies consent for planned procedure, identifies individual values and wishes concerning care, includes family members in perioperative teaching Secures patient's records' belongings, and valuables, maintains patient's dignity and privacy, and maintains patient confidentiality Entry 1 In Holding 02/12/21 13:18:00 Outcomes Met? Yes Last Modified By: Ana Pedraza LPN 02/12/21 13:18:14 Post-Care Text: The patient participates in decisions affecting his or her perioperative plan of care The patient'sright to privacy is maintained Surgery Checklist FTURO Entry 1 Patient Birthday, ID Band Procedure History and Physical, Identification: Check, Patient Verification: Surgical Consent, With Participation Patient NPO after Midnight: n/a Personal Items: Glasses, Jewelry Personal Items ring Complaints of Pain: No Comment: Skin Integrity Unable to Visualize Vitals - EU Blood Pressure 159/100 Pulse 88 bpm Respirations 18 br/min SPO2 Additional JEEVAN MASCORRO Reviewed Yes Specimens Collected Last Modified By: Bhavani Roldan RN 02/12/21 13:28:00 General Comments: Temp. 36.6 Finalized By: Bhavani Roldan RN Document Signatures Signed By: Ana Pedraza LPN 02/12/21 13:20 Yuli MASCORRO, Bhavani Levine 02/12/21 13:28NoMercy Health Perrysburg HospitalOperative Reporton 27-55-1516Fjimnyscf ReportPatient: KAYLEIGH BROWN Age: 70 years Sex: Female : 1950 Associated Diagnoses: None Author: Moisés Acosta Jr., MD Procedure Operative Information Details: Date/ Time: 02/12/2021 14:26:00. Pre-Op Dx: Micro Hematuria - Asymptomatic - R31.21. Post-Op Dx: Same. Anesthesia Type: Local. Procedure: Local Cystoscopy. Complications: None. Risks/Benefits/Informed Consent: Surgical risks, benefits, details of the procedure have been explained to the patient, Full informed consent has been obtained. Intraoperative Information Prepped: Patient is brought back to the endoscopy suite, Patient is placed in modified dorso/lithotomy position, Patient prepped in the usual fashion with Betadine solution, 2% Xylocaine Jelly is placed per Urethra, After waiting several minutes the Cystoscope is introduced. The Urethra is: Normal. The Bladder is: Normal, Trabeculated None (0). The ureteral orifices: Show efflux of clear urine. Specimens Removed. Devices Implanted: None. Removal: Cystoscope is removed, The patient tolerated it well. Postoperative Information Discharge: Patient is discharged home with antibiotic coverage, Follow up arranged, Office follow-up in 2 to 4 weeks as planned. We will review results of CT scan and urine studies at that time..[facility] Comment on above:Result Comment: Electronically Signed By: Dave Krueger MD, Moisés Nye\.br\Date and Time Signed: 02/12/2114:27 EDTUroVysion Fish and Urine Cyto ([facility])on 94-43-1236CXYK Method of ExtractionVoidedNoMercy Health Perrysburg HospitalComment on above:Performed By: #### [id number] ####[facility] [address] [place], [place]POWU Number of Qknh5Zojglwb Interpretation [facility] HospitalComment on above:Performed By: #### [id number] ####[facility] [facility], [place]VVQL SpecimenUrineNoMercy Health Perrysburg HospitalComment on above:Performed By: #### [id number] ####[facility] [place], RN[address]AZRX Type of ServiceTechnical Only Marion HospitalComment on above:Performed By: #### [id number] ####[place] [address] [facility], YB[address]Icqvh on [id number]#1.00CD:127Normal [facility] 56-63-9308Idytgaswo From: Margaret Downs MA To: EU - Clinical; Sent: 01/27/2021 13:30:49 EDT Show up: 02/06/2021 08:00:00 EDT Subject: Ambulatory Reminder Due Date/Time: 02/10/2021 08:00:00 EDT Reminder/Recall FISH/CYTO report is still pending as of 02/09/21 1613 specimen was recieved on 02/04/21, urine will no longer be good since being sent on 01/27/21 and is just now being ran 02/04/21- will get a new specimen at the time of the Cysto. P4 sending over cancelation fax and will fill out and fax back- will call [facility] and get a new specimen 02/12/21 at [facility]. Cx form was faxed- [facility] From: Marisol Swain To: EU - Clinical; Sent: 01/27/2021 11:43:45 EDT Show up: 02/10/2021 11:43:00 EDT Subject: CT Reminder/Recall being done at [facility] prior to 02/12/21 done, CT is in patients chart. will go over at time of Cysto 02/12/21.NormalMarion Hospital UroVysion Fish and Urine Cyto ([facility])on 24-21-4390JRZNNB & UCDiagnosis Info Invalid Interpretation [facility] HospitalComment on above:Result Comment: Gross Description Electronically signed by : on: 02/11/2021 12:26:14Performed By: #### [id number] ####[facility] [address] [place], [place]Qyz-Ulizssgwfqeye Formon 73-79-4580Hph-Certification Form [id number]#1.00CD:127NoMercy Health Perrysburg HospitalAmbulatory Clinical Summaryon 31-00-9057Ejwrfmumdo Clinical Summary {[id number]-[id number]}CD:816447TwdouvCruxenMercy Health Perrysburg HospitalPatient Educationon 62-85-8549Jzuvzmg EducationUrology Hematuria, Adult Hematuria is blood in the urine. Blood may be visible in the urine, or it may be identified with a test. This condition can be caused by infections of the bladder, urethra, kidney, or prostate. Otherpossible causes include: ? Kidney stones. ? Cancer of the urinary tract. ? Too much calcium in the urine. ? Conditions that are passed from parent to child (inherited conditions). ? Exercise that requires a lot of energy. Infections can usually be treated with medicine, and a kidney stone usually will pass through your urine. If neither of these is the cause of your hematuria, more tests may be needed to identify the cause of your symptoms. It is very important to tell your health care provider about any blood in your urine, even if it ispainless or the blood stops without treatment. Blood in the urine, when it happens and then stops and then happens again, can be a symptom of a very serious condition, including cancer. There is no pain in the initial stages of many urinary cancers. Follow these instructions at home: Medicines ? Take obna-sxi-gzbcbxz and prescription medicines only as told by your health care provider. ? If you were prescribed an antibiotic medicine, take it as told by your health care provider. Do not stop taking the antibiotic even if you start to feel better. Eating and drinking ? Drink enough fluid to keep your urine clear or pale yellow. It is recommended that you drink 3?4 quarts (2.8?3.8 L) a day. If you have been diagnosed with an infection, it is recommended that you drink cranberry juice in addition to large amounts of water. ? Avoid caffeine, tea, and carbonated beverages. These tend to irritate the bladder. ? Avoid alcohol because it may irritate the prostate (men). General instructions ? If you have been diagnosed with a kidney stone, follow your health care provider's instructions about straining your urine to catch the stone. ? Empty your bladder often. Avoid holding urine for long periods of time. ? If you are female: ? After a bowel movement, wipe from front to back and use each piece of toilet paper only once. ? Empty your bladder before and after sex. ? Pay attention to any changes in your symptoms. Tell your health care provider about any changes or any new symptoms. ? It is your responsibility to get your test results. Ask your health care provider, or the department performing the test, when your results will be ready. ? Keep all follow-up visits as told by your health care provider. This is important. Contact a health care provider if: ? You develop back pain. ? You have a fever. ? You have nausea or vomiting. ? Your symptoms do not improve after 3 days. ? Your symptoms get worse. Get help right away if: ? You develop severe vomiting and are unable take medicine without vomiting. ? You develop severe pain in your back or abdomen even though you are taking medicine. ? You pass a large amount of blood in your urine. ? You pass blood clots in your urine. ? You feel very weak or like you might faint. ? You faint. Summary ? Hematuria is blood in the urine. It has many possible causes. ? It is very important that you tell your health care provider about any blood in your urine, even if it is painless or the blood stops without treatment. ? Take alwb-ahk-kujjvtv and prescription medicines only as told by your health care provider. ? Drink enough fluid to keep your urine clear or pale yellow. This information is not intended to replace advice given to you by your health care provider. Make sure you discuss any questions you have with your health care provider. Document Released: 10/10/2006 Document Revised: 03/05/2020 Document Reviewed: 11/12/2017 Elsevier Patient Education ? 2019 [employer] Pre-Authorization for Medical Treatmenton 39-69-5084Dbz-Authorization for Medical [id number]#1.00CD:127Marion HospitalUroVysion Fish and Urine Cyto ([facility])on 26-12-8829YYDA Method of ExtractionVoidedMarion HospitalComment on above: Performed By: #### [id number] ####[facility] [address] [place], [place] [address]UVUC Number of Rwxt6Purdpuc Interpretation Code Marion HospitalComment on above:Performed By: #### [id number] ####[facility] [address] [place], [place]UVUC SpecimenUrineMarion HospitalComment on above:Performed By: #### [id number] ####[facility] [address] [facility], [place]RWSP Type of ServiceTechnical OnlyMarion HospitalComment on above:Performed By: #### [id number] ####[facility] Xpslbhljyq233 [facility] KJ[address]Sawvjyl Office/Clinic Noteon 23-71-7034Cajbetj Office/Clinic NoteChief Complaint gross hematuria HPI Staff Pt is here for gross hematuria. Previous dx of microhematuria with symptoms. Pt was last seen 09/21/2018 for local cysto with UD. Pt states that about 5 weeks ago she saw some blood while she was urinating but it subsided after 1 day. Her UA today shows small blood. Dysuria: no Incomplete bladder emptying: no Hematuria: yes about 5 weeks ago for only 1 day and then it subsided Frequency: no Urgency: no Nocturia: pt states that she does not get up Stream: strong without hesitancy or straining Leaking: no Post void dripping: no Wearing pads/ Depends: no Urge incontinence: no Stress incontinence: no Incontinence without Sensory Awareness: no Abdominal pain: no Flank pain: no Sexual complaints: no History of Present Illness Reviewed UA, last encounter, and Cysto/UD op report form 2018. There have been no associated fever, chills, or flank pain. Pt. denies any pain/burning with urination at this time. Review of Systems PHQ Score Initial Depression Screen Score: 0 ROS - Provider Constitutional: denies weight loss, denies hot flashes. Eyes: denies eye problems. Gastrointestinal: denies nausea, denies vomiting. Cardiovascular: denies chest pain or angina. Integumentary: no dryness Musculoskeletal: denies musculoskeletal symptoms. ENMT: denies otolaryngeal symptoms. Respiratory: no shortness of breath. Heme/Lymph: denies easy bleeding tendency, denies easy bruising tendency. Psychiatric: no confusion, no anxiety. Genitourinary: denies vaginal discharge, denies incontinence, denies dysuria, mild hematuria, denies urinary frequency, denies amenorrhea, denies menorrhagia, denies abnormal bleeding, denies pelvic pain, denies genital sores, and denies decreased libido. Physical Exam Vitals & Measurements HR: 68(Peripheral) RR: 16 BP: 140/87 HT: 175 cm HT: 175.0 cm WT: 90 kg WT: 90.0 kg BMI: 29.39 General Appearance: alert , no acute distress, well nourished, well developed female. Head: normocephalic . Eyes: normal orbit and globe. ENMT: normal examination of external ears. Chest: Lungs CTA, respirations non labored . Cardiovascular: regular rate and rhythm. Abdomen: soft, non distended, no tenderness, no mass or organomegaly, no hernia. Genitourinary: bladder nonpalpable, no flank tenderness. Lymph Nodes: unremarkable palpation of the cervical area. Skin: warm, dry, no bruising. Psychiatric: cooperative, affect appropriate for age, normal judgement, euthymic mood. Assessment/Plan This patient has a history of gross hematuria and has been scheduled for hematuria work-up that will include CT scan urine cytology and cystoscopic. All her questions were answered. Informed consent been obtained. 1. Gross hematuria (R31.0: Gross hematuria) Pt. had a neg. work up done in 2018. UA today - small. Pt. states only having one episode a few wks. ago. Will send UA today for FISH/Cyto, pt. is to obtain a CT, and will schedule Cystoscopy. The risks and benefits for cystoscopy have been discussed. The risks include bleeding, infection, and irritation of the bladder and urinary channel, among others. The patient, after being informed of procedural details and after questions have been answered, wishes to proceed. Full informed consent has been obtained. Will order Local anesthesia. ABX sent to [facility] in [place]. Ordered: CT Abdomen/Pelvis w/ Contrast Urnls Dip Stick Auto w/o Microscopy POC 91666 Urology Procedure Order 2. Other urethral stricture, female (N35.82: Other urethral stricture, female) S/p Cysto/UD 09/21/2018. Ordered: Urology Procedure Order Orders: ciprofloxacin, 500 mg = 1 tab(s), Oral, Daily, Take 1 day prio to Cysto and 1 after Cysto completed, X 2 day(s), # 2 tab(s), Refills(s) 0, Pharmacy: [facility]/pharmacy #[id number], 175, cm, 01/27/21 10:28:00 EDT, Height/Length Dosing, 90, kg, 01/27/21 10:28:00 EDT, Weight Dosing I have reviewed the previous health record information and history for this pt. from Dr. Acosta. Follow-up With When Contact Information Dave Krueger MD, Moisés [address] Additional Instructions: Patient Education Hematuria, Adult I, Elizabet Elliott , personally scribed for Dr. Acosta on 01/27/2021 11:06:23. . Documentation recorded by the scribe, Elizabet Elliott, accurately reflects the services(s) I performed and decisions made by me. Authenticated by Dr. Acosta on 01/27/2021 11:13:55. Problem List/Past Medical History Ongoing Arthritis Depression Hyperlipidemia Hypertension Historical No qualifying data Procedure/Surgical History Arthroplasty of knee, Arthroplasty of the hip, Breast surgery. Medications Crestor 5 mg Tab, Oral, Daily Effexor XR 150 mg Cap-ER, Oral, Daily losartan, Oral, Daily Multivitamins and Minerals Allergies No Known Medication Allergies Social History Alcohol - (more content not included)...[facility] HospitalComment on above:Result Comment: Electronically Signed By: Dave Krueger MD, Moisés Nye\.br\Date and Time Signed: 01/27/2111:15 EDT\.br\Electronically Co-Signed By: Elizabet Elliott MA\.br\Date and Time Co-Signed: 01/27/21 11:06 EDTHIP LEFT 1 OR 2 VWS WITH PELVISon 08-90-7443NXS LEFT 1 OR 2 VWS WITH PELVISUnOhio[facility] Department of Radiology [address] [place] [address] Patient Name: KAYLEIGH BROWN : 1950 Sex: F Age: Race: White Pt. Location: Patient Status: Ordered Date: 01/02/2019 1:50:00 PM Completed Date: 01/02/2019 01:59 PM Requesting Provider: JAZMIN AVILA Attending Provider: Report Copy To: Signs & Symptoms: S72.92XD Unsp fracture of left femur, subs for clos fx w routn heal I10 History: [place] Comments: , , , Ordering Provider - JAZMIN AVILA PA-C , Exam: HIP LEFT 1 OR 2 VWS WITH PELVIS HIP LEFT 1 OR 2 VWS WITH PELVIS 01/02/2019 1:59 PM EDT SIGNS AND SYMPTOMS: S72.92XD Unsp fracture of left femur, subs for clos fx w routn heal I10 TECHNOLOGIST COMMENTS: Patient states last surgery x 10/02/2018 ortho follow up of left hip with pelvis QUESTION FOR THE RADIOLOGIST: , , , Ordering Provider - JAZMIN AVLIA PA-C , PROTOCOL: AP(PA) and Lateral views were obtained. COMPARISON: None FINDINGS: Soft tissues: Normal Bones: No fracture Joints: IMPRESSION: Left total hip arthroplasty. Alignment unchanged. No periprosthetic fracture or loosening. Moderate degenerative changes in the right hip joint space with joint space narrowing degenerative changes in the lower lumbar spine Electronically signed by:Mila Hernandez. Transcribed by: [id number], User Resident: Electronically Signed by: MILA HERNANDEZ @ 01/02/2019 03:46 PMNCommunity Memorial HospitalComment on above:Order Comment: , , , Ordering Provider - JAZMIN AVILA PA-C , HIP LEFT 1 OR 2 VWS WITH PELVISon 83-28-1644SSF LEFT 1 OR 2 VWS WITH PELVISUnOhioHealth [facility] Department of Radiology [address] [place] [id number] Patient Name: KAYLEIGH BROWN : 1950 Sex: F Age: Race: White Pt. Location: 84 Patient Status: Ordered Date: 11/27/2018 8:35:00 AM Completed Date: 11/27/2018 08:38 AM Requesting Provider: JAZMIN AVILA Attending Provider: Report Copy To: Signs & Symptoms: S72.92XD Unsp fracture of left femur, subs for clos fx w routn heal I10 History: [place] Comments: , , , Ordering Provider - JAZMIN AVILA PA-C , Exam: HIP LEFT 1 OR 2 VWS WITH PELVIS HIP LEFT 1 OR 2 VWS WITH PELVIS 11/27/2018 8:38 AM EST SIGNS AND SYMPTOMS: S72.92XD Unsp fracture of left femur, subs for clos fx w routn heal I10 TECHNOLOGIST COMMENTS: ortho follow up lt hip replacement 10/02/2018 QUESTION FOR THE RADIOLOGIST: , , , Ordering Provider - JAZMIN AVILA PA-C , PROTOCOL: AP(PA) and Lateral views were obtained. COMPARISON: October 18, 2018 FINDINGS: Soft tissues: Improved swelling Bones: Left total hip arthroplasty with proximal femur supported by cerclage wires in good alignment Joints: As above Right [place] hip with mild arthritis IMPRESSION: Healing left total hip revision Electronically signed by:Chuckie Harris. Transcribed by: [email or web address], User Resident: Electronically Signed by: CHUCKIE HARRIS @ 11/27/2018 10:59 [facility] HospitalComment on above:Order Comment: , , , Ordering Provider - JAZMIN AVILA PA-C , HIP LEFT 1 OR 2 VWS WITH PELVISon [id number] LEFT 1 OR 2 VWS WITH PELVISUnOhio[facility] Department of Radiology [address] [place] [id number] Patient Name: KAYLEIGH BROWN : 1950 Sex: F Age: Race: White Pt. Location: 84 Patient Status: Ordered Date: 10/18/2018 9:40:00 AM Completed Date: 10/18/2018 09:47 AM Requesting Provider: JAZMIN AVILA Attending Provider: Report Copy To: Signs & Symptoms: M97.02XA Periprosth fracture around internal prosth l hip jt, init I10 History: Paula Comments: , , , Ordering Provider - JAZMIN AVILA PA-C , Exam: HIP LEFT 1 OR 2 VWS WITH PELVIS HIP LEFT 1 OR 2 VWS WITH PELVIS 10/18/2018 9:47 AM EST SIGNS AND SYMPTOMS: M97.02XA Periprosth fracture around internal prosth l hip jt, init I10 TECHNOLOGIST COMMENTS: Ortho follow up for left hip surgery. QUESTION FOR THE RADIOLOGIST: , , , Ordering Provider - JAZMIN AVILA PA-C , PROTOCOL: AP(PA) and Lateral views were obtained. COMPARISON: October 02, 2018 FINDINGS: Soft tissues: Air has healed and drain has been removed Bones: Left total hip arthroplasty with proximal femoral cerclage wires remains in satisfactory alignment IMPRESSION: Healing left total hip arthroplasty in good alignment Electronically signed by:Chuckie Harris. Transcribed by: [email or web address], User Resident: Electronically Signed by: CHUCKIE HARRIS @ 10/18/2018 10:38 [facility] HospitalComment on above:Order Comment: , , , Ordering Provider - JAZMIN AVILA PA-C , CBC COMPLETE BLOOD COUNTon 46-54-1363Lvsdnudeint distribution width Ratio (RBC)14.9 %Nksfca04.5-15.0The [facility] CenterComment on above:Order Comment: Yes: Add to Previous draw if ablePerformed By: #### [id number] #### [facility] [address] [place] [address], [facility] UNITHematocrit Volume Fraction (Bld)26.6 %Low36.0-45.0The [facility] Medical CenterComment on above:Order Comment: Yes: Add to Previous draw if ablePerformed By: #### [id number] #### [facility] [address] [place] [address], [facility] UNITHemoglobin mass conc (Bld)8.5 g/dLLow12.0-15.0The [facility] CenterComment on above:Order Comment: Yes: Add to Previous draw if ablePerformed By: #### [id number] #### [facility] [address] [place] [address], [facility] Entitic mass (RBC)29.7 kjXjnshp94.0-33.0The [facility] Medical CenterComment on above:Order Comment: Yes: Add to Previous draw if ablePerformed By: #### [id number] #### [facility] [address] [place] [address], [facility] mass conc (RBC)32.0 g/iDDprbzr44.0-35.0The [facility] CenterComment on above:Order Comment: Yes: Add to Previous draw if ablePerformed By: #### [id number] #### [facility] [address] [place] [address], [facility] Entitic volume (RBC)93.0 iJJkvhlg53.0-98.0The [facility] CenterComment on above:Order Comment: Yes: Add to Previous draw if ablePerformed By: #### [id number] #### [facility] [address] [place] [address], USANucleated RBC/100 WBC Ratio (Bld)0 %Normal0-0The [facility] CenterComment on above:Order Comment: Yes: Add to Previous draw if ablePerformed By: #### [id number] #### [facility] [address] [place] [address], USAPLAT XWZ291 10*3/sFCnck105-205Zrz [facility] CenterComment on above:Order Comment: Yes: Add to Previous draw if able Performed By: #### [id number] #### [facility] [address] [place] [address], USARBC #/vol (Bld)2.86 10*6/uLLow3.80-5.00The [facility] Medical CenterComment on above:Order Comment: Yes: Add to Previous draw if ablePerformed By: #### [id number] #### [facility] [address] [place] [address], USAWBC #/vol (Bld)5.72 10*3/uLNormal4.00-10.60The [facility] CenterComment on above:Order Comment: Yes: Add to Previous draw if ablePerformed By: #### [id number] #### [facility] [address] [place] [address], USABASIC METABOLIC PANELon 31-63-2307Yxexymg mass conc8.9 mg/dLNormal8.6-10.3The [facility] CenterComment on above:Order Comment: No: Do not add to previous drawPerformed By: #### [id number] #### [facility] [address] [place] [address], USAChloride molar uktt591 mmol/IJiidrc66-657Jnb [facility] CenterComment on above:Order Comment: No: Do not add to previous drawPerformed By: #### [id number] #### [facility] [address] [place] [address], USACO2 molar conc26 mmol/KWpjwze78-61Mux [facility] CenterComment on above:Order Comment: No: Do not add to previous draw Performed By: #### [id number] #### [facility] [address] [place] [address], USACreatinine mass conc0.62 mg/dLNormal0.60-1.20The [facility] CenterComment on above:Order Comment: No: Do not add to previous drawPerformed By: #### [id number] #### [facility] [address] [place] [address], USAGFR/1.73 sq M predicted among blacks MDRD vol rate/area (S/P/Bld)mL/min/{1.73_m2}Normal>60The [facility] CenterComment on above:Order Comment: No: Do not add to previous drawPerformed By: #### [id number] #### [facility] [address] [place] [address], USAGFR/1.73 sq M predicted among non-blacks MDRD vol rate/area (S/P/Bld)mL/min/{1.73_m2}Normal>60The [facility] Comment on above:Order Comment: No: Do not add to previous drawPerformed By: #### [id number] #### [facility] [address] [place] [address], USAGlucose mass nyil765 mg/bQQnaf51-877Nfh [facility] CenterComment on above:Order Comment: No: Do not add to previous drawPerformed By: #### [id number] #### [facility] [address] [place] [address], USAPotassium molar conc4.4 mmol/LNormal3.5-5.1The [facility] Medical CenterComment on above:Order Comment: No: Do not add to previous drawPerformed By: #### [id number] #### [facility] [address] [place] [address], USASodium molar mcto569 mmol/ZVjpihg432-264Gxo [facility] CenterComment on above:Order Comment: No: Do not add to previous drawPerformed By: #### [id number] #### [facility] [address] [place] [address], USAUrea nitrogen mass conc12 mg/dLNormal7-25The [facility] CenterComment on above:Order Comment: No: Do not add to previous drawPerformed By: #### [id number] #### [facility] [address] [place] [address], [facility] UNITCBC COMPLETE BLOOD COUNTon 40-25-6413Tcwemvtaafc distribution width Ratio (RBC)14.8 %Rgtukc64.5-15.0The [facility] CenterComment on above:Order Comment: No: Do not add to previous draw Performed By: #### [id number] #### [facility] [address] [place] [address], [facility] UNITHematocrit Volume Fraction (Bld)27.9 %Low36.0-45.0The [facility] CenterComment on above:Order Comment: No: Do not add to previous drawPerformed By: #### [id number] #### [facility] [address] [place] [address], [facility] UNITHemoglobin mass conc (Bld)9.1 g/dLLow12.0-15.0The [facility] CenterComment on above:Order Comment: No: Do not add to previous drawPerformed By: #### [id number] #### [facility] [address] [place] [address], [facility] Entitic mass (RBC)29.9 eaSmrdfr28.0-33.0The [facility] CenterComment on above:Order Comment: No: Do not add to previous drawPerformed By: #### [id number] #### [facility] [address] [place] [address], [facility] UNITMCHC mass conc (RBC)32.6 g/eEQewbxl23.0-35.0The [facility] CenterComment on above:Order Comment: No: Do not add to previous drawPerformed By: #### [id number] #### [facility] [address] [place] [id number], [facility] SERV[facility] UNITMCV Entitic volume (RBC)91.8 uFGjnamk04.0-98.0The [facility] CenterComment on above:Order Comment: No: Do not add to previous drawPerformed By: #### [id number] #### [facility] [address] [place] [address], USANucleated RBC/100 WBC Ratio (Bld)0 %Normal0-0The [facility] CenterComment on above:Order Comment: No: Do not add to previous drawPerformed By: #### [id number] #### [facility] [address] [place] [address], USAPLAT USW739 10*3/hXVraf010-925Hrh [facility] CenterComment on above:Order Comment: No: Do not add to previous draw Performed By: #### [id number] #### [facility] [address] [place] [address], [facility] SERV[facility] UNITRBC #/vol (Bld)3.04 10*6/uLLow3.80-5.00The [facility] CenterComment on above:Order Comment: No: Do not add to previous drawPerformed By: #### [id number] #### [facility] [address] [place] [address], USAWBC #/vol (Bld)6.22 10*3/uLNormal4.00-10.60The [facility] CenterComment on above:Order Comment: No: Do not add to previous drawPerformed By: #### [id number] #### [facility] [address] [place] [address], USABASIC METABOLIC PANELon 21-98-0190Vpdqgpb mass conc8.4 mg/dLLow8.6-10.3The [facility] CenterComment on above:Order Comment: No: Do not add to previous drawPerformed By: #### [id number] #### [facility] [address] [place] [address], USAChloride molar vlyk310 mmol/VKcafql81-291Kbz [facility] CenterComment on above:Order Comment: No: Do not add to previous drawPerformed By: #### [id number] #### [facility] [address] [place] [address], USACO2 molar conc27 mmol/DQytvfb14-36Ahj [facility] CenterComment on above:Order Comment: No: Do not add to previous draw Performed By: #### [id number] #### [facility] [address] [place] [address], USACreatinine mass conc0.60 mg/dLNormal0.60-1.20The [facility] CenterComment on above:Order Comment: No: Do not add to previous drawPerformed By: #### [id number] #### [facility] [address] [place] [address], USAGFR/1.73 sq M predicted among blacks MDRD vol rate/area (S/P/Bld)mL/min/{1.73_m2}Normal>60The [facility] CenterComment on above:Order Comment: No: Do not add to previous drawPerformed By: #### [id number] #### [facility] [address] [place] [address], USAGFR/1.73 sq M predicted among non-blacks MDRD vol rate/area (S/P/Bld)mL/min/{1.73_m2}Normal>60The [facility] Comment on above:Order Comment: No: Do not add to previous drawPerformed By: #### [id number] #### [facility] [address] [place] [address], USAGlucose mass jhdl688 mg/eXXuoa62-357Udt [facility] CenterComment on above:Order Comment: No: Do not add to previous drawPerformed By: #### [id number] #### [facility] [address] [place] [address], USAPotassium molar conc4.2 mmol/LNormal3.5-5.1The [facility] CenterComment on above:Order Comment: No: Do not add to previous drawPerformed By: #### [id number] #### [facility] [address] [place] [address], USASodium molar ewpx918 mmol/CKwl334-194Xfj [facility] CenterComment on above:Order Comment: No: Do not add to previous drawPerformed By: #### [id number] #### [facility] [address] [facility] [place] [address], USAUrea nitrogen mass conc11 mg/dLNormal7-25The [facility] CenterComment on above:Order Comment: No: Do not add to previous drawPerformed By: #### [id number] #### [facility] [address] [facility] [place] [address], [facility] UNITCB W/DIFFon 47-86-4908DJI BASOPHILS0.0 10*3/uLNormal 0.0-0.2The [facility] CenterComment on above:Performed By: #### [id number] #### [facility] [address] [facility] [place] [address], [facility] UNITABS IMM GRANS0.3 10*3/uLHigh0.0-0.2The [facility] CenterComment on above:Performed By: #### [id number] #### [facility] [address] [facility] [place] [address], USAABS NEUTROPHILS4.1 10*3/uLNormal1.6-7.6The [facility] CenterComment on above:Performed By: #### [id number] #### [facility] [address] [facility] [place] [address], USABasophils #/vol (Bld)0.5 %Normal0.0-1.0The [facility] CenterComment on above:Performed By: #### [id number] #### [facility] [address] [facility] [place] [address], [facility] UNITEosinophils #/vol (Bld)0.2 10*3/uLNormal0.0-0.5The [facility] CenterComment on above:Performed By: #### 42400 #### [facility] [address] [facility] [place] [address], [facility] UNITEosinophils/100 WBC (Bld)3.1 %Normal0.0-6.0The [facility] CenterComment on above:Performed By: #### 36305 #### [facility] [address] [place] [address], [facility] UNITErythrocyte distribution width Ratio (RBC)14.8 %Normal 11.5-15.0The [facility] CenterComment on above:Performed By: #### [id number] #### [facility] [address] [place] [address], USAHematocrit Volume Fraction (Bld)24.3 %Low36.0-45.0The [facility] CenterComment on above:Performed By: #### 78094 #### [facility] [address] [place] [address], [facility] UNITHemoglobin mass conc (Bld)7.9 g/dLLow12.0-15.0The [facility] CenterComment on above:Performed By: #### [id number] #### [facility] [address] [facility] [place] [address], [facility] UNITIMMATURE GRANS5.0 %High0.0-1.0The [facility] Medical CenterComment on above:Performed By: #### [id number] #### [facility] [address] [place] [id number], [facility] UNITLymphocytes #/vol (Bld)0.8 10*3/uLLow1.2-4.0The [facility] CenterComment on above:Performed By: #### [id number] #### [facility] [address] [place] [address], [facility] UNITLymphocytes/100 WBC (Bld)12.9 %Low20.0-45.0The [facility] Medical CenterComment on above:Performed By: #### [id number] #### [facility] [address] [facility] [place] [address], [facility] Entitic mass (RBC)29.5 tzGbthev05.0-33.0The [facility] CenterComment on above:Performed By: #### 55700 #### [facility] [address] [facility] [place] [address], [facility] mass conc (RBC)32.5 g/iHNvewrr89.0-35.0The [facility] CenterComment on above:Performed By: #### [id number] #### [facility] [address] [facility] [place] [address], [facility] Entitic volume (RBC)90.7 mJGnyghy70.0-98.0The [facility] CenterComment on above:Performed By: #### 18785 #### [facility] [address] [facility] [place] [address], [facility] UNITMonocytes #/vol (Bld)0.6 10*3/uLNormal0.1-1.0The [facility] CenterComment on above:Performed By: #### [id number] #### [facility] [address] [facility] [place] [address], APOSHHNO49.6 %Normal5.0-12.0The [facility] CenterComment on above:Performed By: #### 95016 #### [facility] [address] [place] [address], USANeutrophils/100 WBC (Bld)67.9 %Xllcpe82.0-72.0The [facility] CenterComment on above:Performed By: #### 42586 #### [facility] [address] [place] [address], USANucleated RBC/100 WBC Ratio (Bld)0 %Normal0-0The [facility] CenterComment on above:Performed By: #### [id number] #### [facility] [address] [place] [address], USAPLAT WWG087 10*3/cWJvyd141-367Vas [facility] CenterComment on above:Performed By: #### 59018 #### [facility] [address] [place] [address], [facility] UNITRBC #/vol (Bld)2.68 10*6/uLLow3.80-5.00The [facility] CenterComment on above:Performed By: #### 29189 #### [facility] [address] [place] [address], USAWBC #/vol (Bld)6.04 10*3/uLNormal4.00-10.60The [facility] CenterComment on above:Performed By: #### [id number] #### [facility] [address] [place] [address], USAHEMOGLOBINon 50-02-5490Ldydqioklv mass conc (Bld)8.7 g/dL Low12.0-15.0The [facility] CenterComment on above:Order Comment: No: Do not add to previous drawPerformed By: #### 58501 #### [facility] [address] [place] [address], USABASIC METABOLIC PANELon 88-28-5442Jgpjmcc mass conc8.7 mg/dLNormal8.6-10.3The [facility] CenterComment on above:Order Comment: No: Do not add to previous drawPerformed By: #### [id number] #### [facility] [address] [place] [address], USAChloride molar uxnz535 mmol/SScbdpa68-118Zmk [facility] CenterComment on above:Order Comment: No: Do not add to previous drawPerformed By: #### [id number] #### [facility] [address] [place] [address], USACO2 molar conc28 mmol/BXynmjs58-00Pix [facility] CenterComment on above:Order Comment: No: Do not add to previous draw Performed By: #### [id number] #### [facility] [address] [place] [address], USACreatinine mass conc0.71 mg/dLNormal0.60-1.20The [facility] CenterComment on above:Order Comment: No: Do not add to previous drawPerformed By: #### 12700 #### [facility] [address] [place] [address], USAGFR/1.73 sq M predicted among blacks MDRD vol rate/area (S/P/Bld)mL/min/{1.73_m2}Normal>60The [facility] CenterComment on above:Order Comment: No: Do not add to previous drawPerformed By: #### [id number] #### [facility] [address] [place] [address], USAGFR/1.73 sq M predicted among non-blacks MDRD vol rate/area (S/P/Bld)mL/min/{1.73_m2}Normal>60The [facility] Comment on above:Order Comment: No: Do not add to previous drawPerformed By: #### 05150 #### [facility] [address] [place] [address], USAGlucose mass wchn901 mg/fBBoek89-095Qxa [facility] CenterComment on above:Order Comment: No: Do not add to previous drawPerformed By: #### 81650 #### [facility] [address] [place] [address], USAPotassium molar conc4.2 mmol/LNormal3.5-5.1The [facility] CenterComment on above:Order Comment: No: Do not add to previous drawPerformed By: #### [id number] #### [facility] [address] [place] [address], USASodium molar ragw471 mmol/LVdi094-580Jwp [facility] CenterComment on above:Order Comment: No: Do not add to previous drawPerformed By: #### [id number] #### [facility] [address] [place] [address], USAUrea nitrogen mass conc13 mg/dLNormal7-25The [facility] CenterComment on above:Order Comment: No: Do not add to previous drawPerformed By: #### [id number] #### [facility] [address] [place] [address], USACBC COMPLETE BLOOD COUNTon 88-48-1825Cgvhqqhcena distribution width Ratio (RBC)14.2 %Ttmbvn41.5-15.0The [facility] CenterComment on above:Order Comment: No: Do not add to previous draw Performed By: #### [id number] #### [facility] [address] [place] [address], USAHematocrit Volume Fraction (Bld)19.8 %Low36.0-45.0The [facility] CenterComment on above:Order Comment: No: Do not add to previous drawPerformed By: #### [id number] #### [facility] [address] [place] [address], USAHemoglobin mass conc (Bld)6.5 g/dLLow12.0-15.0The [facility] CenterComment on above:Order Comment: No: Do not add to previous drawPerformed By: #### [id number] #### [facility] [address] [place] [address], [facility] Entitic mass (RBC)30.0 eoGhztgx79.0-33.0The [facility] CenterComment on above:Order Comment: No: Do not add to previous drawPerformed By: #### [id number] #### [facility] [address] [place] [id number], [facility] mass conc (RBC)32.8 g/bXBzqafn29.0-35.0The [facility] CenterComment on above:Order Comment: No: Do not add to previous drawPerformed By: #### [id number] #### [facility] [address] [place] [address], [facility] Entitic volume (RBC)91.2 pCJrjijb88.0-98.0The [facility] CenterComment on above:Order Comment: No: Do not add to previous drawPerformed By: #### [id number] #### [facility] [address] [place] [address], [facility] UNITNucleated RBC/100 WBC Ratio (Bld)0 %Normal0-0The [facility] CenterComment on above:Order Comment: No: Do not add to previous drawPerformed By: #### 42040 #### [facility] [address] [place] [address], USAPLAT KZS256 10*3/zXIavf399-165Ebe [facility] CenterComment on above:Order Comment: No: Do not add to previous draw Performed By: #### [id number] #### [facility] [address] [place] [address], [facility] UNITRBC #/vol (Bld)2.17 10*6/uLLow3.80-5.00The [facility] CenterComment on above:Order Comment: No: Do not add to previous drawPerformed By: #### [id number] #### [facility] [address] [place] [address], USAWBC #/vol (Bld)5.87 10*3/uLNormal4.00-10.60The [facility] CenterComment on above:Order Comment: No: Do not add to previous drawPerformed By: #### [id number] #### [facility] [address] [place] [address], USAHEMOGLOBINon 35-50-6425Peamceerns mass conc (Bld)8.5 g/dL Low12.0-15.0The [facility] CenterComment on above:Order Comment: No: Do not add to previous drawPerformed By: #### [id number] #### [facility] [address] [place] [address], USARBC'S 2 UNITSon 91-03-6336OHVYLEEHOW INTERP 1CMercy Health Defiance HospitalComment on above:Order Comment: No: Do not add to previous drawPerformed By: #### [id number] #### [facility] [address] [place] [address], USACROSSMATCH INTERP 2CMercy Health Defiance HospitalComment on above:Order Comment: No: Do not add to previous draw Performed By: #### [id number] #### [facility] [address] [place] [address], USAProtein mass zoxx116 g/dLNormMedina HospitalComment on above:Order Comment: No: Do not add to previous draw Performed By: #### [id number] #### [facility] [address] [place] [address], USAProtein mass concPTNoSouthwest General Health CenterComment on above:Order Comment: No: Do not add to previous drawResult Comment: Result changed by IF on 10/05/2018 10:04. The previous value was XM. Result changed by IF on 10/06/2018 00:30. The previous value was IS.Performed By: #### [id number] #### [facility] [address] [place] [address], USAResult Comment: Result changed by IF on 10/05/2018 13:18. The previous value was XM. Result changed by IF on 10/06/2018 00:30. The previous value was IS.Protein mass xzdr662 g/dLParma Community General HospitalComment on above:Order Comment: No: Do not add to previous drawPerformed By: #### [id number] #### [facility] [address] [place] [address], USAUNIT ABO 1[facility] Comment on above:Order Comment: No: Do not add to previous drawPerformed By: #### [id number] #### [facility] [address] [place] [address], USAUNIT ABO 2[facility] Comment on above:Order Comment: No: Do not add to previous drawPerformed By: #### [id number] #### [facility] [address] [place] [address], USAUNIT ID [id number] General Health CenterComment on above:Order Comment: No: Do not add to previous draw Performed By: #### [id number] #### [facility] [address] [place] [address], [place] ID [id number]-OCysvcrOvpCleveland Clinic Marymount HospitalComment on above:Order Comment: No: Do not add to previous draw Performed By: #### [id number] #### [facility] [address] [place] [address], [place] RH 1PosiUpper Valley Medical CenterComment on above:Order Comment: No: Do not add to previous drawPerformed By: #### [id number] #### [facility] [address] [place] [address], [place] RH 2PositiveNoSouthwest General Health CenterComment on above:Order Comment: No: Do not add to previous drawPerformed By: #### [id number] #### [facility] [address] [place] [address], USATYPE AND SCREENon 45-12-3810AII INTERPRETATIONONoSouthwest General Health CenterComment on above:Performed By: #### [id number] #### [facility] [address] [place] [address], USARH INTERPRETATIONPositiveParma Community General HospitalComment on above:Performed By: #### [id number] #### [facility] [address] [place] [address], USABASIC METABOLIC PANELon 85-13-3083Kdskbkb mass conc8.5 mg/dLLow8.6-10.3The [facility] Medical CenterComment on above:Order Comment: No: Do not add to previous drawPerformed By: #### [id number] #### [facility] [address] [place] [address], USAChloride molar iegv102 mmol/AKaescl44-926Clv [facility] Medical CenterComment on above:Order Comment: No: Do not add to previous drawPerformed By: #### [id number] #### [facility] [address] [place] [address], USACO2 molar conc26 mmol/YPnfukg75-08Cvu [facility] CenterComment on above:Order Comment: No: Do not add to previous draw Performed By: #### [id number] #### [facility] [address] [place] [address], USACreatinine mass conc0.63 mg/dLNormal0.60-1.20The [facility] Medical CenterComment on above:Order Comment: No: Do not add to previous drawPerformed By: #### [id number] #### [facility] [address] [place] [address], USAGFR/1.73 sq M predicted among blacks MDRD vol rate/area (S/P/Bld)mL/min/{1.73_m2}Normal>60The [facility] Medical CenterComment on above:Order Comment: No: Do not add to previous drawPerformed By: #### [id number] #### [facility] [address] [place] [address], USAGFR/1.73 sq M predicted among non-blacks MDRD vol rate/area (S/P/Bld)mL/min/{1.73_m2}Normal>60The [facility] Comment on above:Order Comment: No: Do not add to previous drawPerformed By: #### [id number] #### [facility] [address] [place] [address], USAGlucose mass zidh370 mg/dPLzfs39-699Jyu [facility] CenterComment on above:Order Comment: No: Do not add to previous drawPerformed By: #### [id number] #### [facility] [address] [place] [address], USAPotassium molar conc4.6 mmol/LNormal3.5-5.1The [facility] CenterComment on above:Order Comment: No: Do not add to previous drawPerformed By: #### [id number] #### [facility] [address] [place] [address], USASodium molar hzmq859 mmol/BAzm471-540Iez [facility] CenterComment on above:Order Comment: No: Do not add to previous drawPerformed By: #### [id number] #### [facility] [address] [place] [address], USAUrea nitrogen mass conc17 mg/dLNormal7-25The [facility] CenterComment on above:Order Comment: No: Do not add to previous drawPerformed By: #### 75805 #### [facility] [address] [place] [address], USACalcium mass conc8.5 mg/dLLow8.6-10.3The [facility] CenterComment on above:Order Comment: No: Do not add to previous drawPerformed By: #### [id number] #### [facility] [address] [place] [address], USAChloride molar vzzl923 mmol/LGshfrk79-965Ysr [facility] CenterComment on above:Order Comment: No: Do not add to previous drawPerformed By: #### 13311 #### [facility] [address] [place] [address], USACO2 molar conc21 mmol/ZFsnrqe77-85Cjc [facility] CenterComment on above:Order Comment: No: Do not add to previous draw Performed By: #### [id number] #### [facility] [address] [place] [address], USACreatinine mass conc0.55 mg/dLLow0.60-1.20The [facility] CenterComment on above:Order Comment: No: Do not add to previous drawPerformed By: #### [id number] #### [facility] [address] [place] [address], USAGFR/1.73 sq M predicted among blacks MDRD vol rate/area (S/P/Bld)mL/min/{1.73_m2}Normal>60The [facility] Medical CenterComment on above:Order Comment: No: Do not add to previous drawPerformed By: #### [id number] #### [facility] [address] [place] [address], USAGFR/1.73 sq M predicted among non-blacks MDRD vol rate/area (S/P/Bld)mL/min/{1.73_m2}Normal>60The [facility] Comment on above:Order Comment: No: Do not add to previous drawPerformed By: #### [id number] #### [facility] [address] [place] [address], USAGlucose mass yreh880 mg/qMRbuq40-593Rew [facility] CenterComment on above:Order Comment: No: Do not add to previous drawPerformed By: #### 76775 #### [facility] [address] [place] [address], USAPotassium molar conc4.8 mmol/LNormal3.5-5.1The [facility] CenterComment on above:Order Comment: No: Do not add to previous drawPerformed By: #### [id number] #### [facility] [address] [place] [address], USASodium molar yqpy737 mmol/OXkn742-878Wxc [facility] CenterComment on above:Order Comment: No: Do not add to previous drawPerformed By: #### [id number] #### [facility] [address] [place] [address], USAUrea nitrogen mass conc15 mg/dLNormal7-25The [facility] CenterComment on above:Order Comment: No: Do not add to previous drawPerformed By: #### [id number] #### [facility] [address] [place] [address], USACBC COMPLETE BLOOD COUNTon 36-92-0181Ujswnhgtqad distribution width Ratio (RBC)13.9 %Xtdivx95.5-15.0The [facility] Medical CenterComment on above:Order Comment: No: Do not add to previous draw Performed By: #### [id number] #### [facility] [address] [place] [address], USAHematocrit Volume Fraction (Bld)25.6 %Low36.0-45.0The [facility] Medical CenterComment on above:Order Comment: No: Do not add to previous drawPerformed By: #### 08169 #### [facility] [address] [place] [address], USAHemoglobin mass conc (Bld)8.1 g/dLLow12.0-15.0The [facility] CenterComment on above:Order Comment: No: Do not add to previous drawPerformed By: #### [id number] #### [facility] [address] [place] [address], [facility] Entitic mass (RBC)29.5 giIdanew19.0-33.0The [facility] CenterComment on above:Order Comment: No: Do not add to previous drawPerformed By: #### [id number] #### [facility] [address] [place] [id number], [facility] mass conc (RBC)31.6 g/dLLow32.0-35.0The [facility] CenterComment on above:Order Comment: No: Do not add to previous drawPerformed By: #### 76190 #### [facility] [address] [place] [address], [facility] Entitic volume (RBC)93.1 eWNaddwo20.0-98.0The [facility] CenterComment on above:Order Comment: No: Do not add to previous drawPerformed By: #### 76942 #### [facility] [address] [place] [address], [facility]ICE UNITNucleated RBC/100 WBC Ratio (Bld)0 %Normal0-0The [facility] Medical CenterComment on above:Order Comment: No: Do not add to previous drawPerformed By: #### [id number] #### [facility] [address] [place] [address], USAPLAT EPI738 10*3/qIJqtfha015-714Bqf [facility] CenterComment on above:Order Comment: No: Do not add to previous draw Performed By: #### [id number] #### [facility] [address] [place] [address], [facility] UNITRBC #/vol (Bld)2.75 10*6/uLLow3.80-5.00The [facility] CenterComment on above:Order Comment: No: Do not add to previous drawPerformed By: #### [id number] #### [facility] [address] [place] [address], [facility] #/vol (Bld)5.86 10*3/uLNormal4.00-10.60The [facility] CenterComment on above:Order Comment: No: Do not add to previous drawPerformed By: #### 54547 #### [facility] [address] [place] [address], [facility] SERVICE UNITOperative Reporton [id number] ReportMR#: [id number] I [facility] Pt. Name: Kayleigh Brown Room #: 6AB [id number] Discharge Date: Birthdate: 1950 OPERATIVE REPORT DATE OF SURGERY: 10/02/2018 SURGEON: Pete Garcia M.D. EDGE GLUE MACHINE TENDER: Dr. Thornton., Dr. Harpal Azar, Dr. George Patel, Dr. Ruperto Hernandez. PREOPERATIVE DIAGNOSIS: Left hip [place] B2 periprosthetic femur fracture. POSTOPERATIVE DIAGNOSIS: Left hip [place] B2 periprosthetic femur fracture. PROCEDURE PERFORMED: 1. Revision of left total hip arthroplasty of femoral component only. 2. Open reduction internal fixation of proximal femur fracture. SPECIMENS: None. IMPLANTS: Nguyễn size 15 revision diaphyseal fitting stem with standard cobalt chrome head. ESTIMATED BLOOD LOSS: 300 mL. TOURNIQUET: None. DRAINS: Hemovac was placed at the conclusion of the case as well as incisional wound VAC. X-RAYS: Intraoperative fluoroscopy was used to confirm fracture reduction and hardware placement. COMPLICATIONS: None. INDICATIONS FOR PROCEDURE: The patient is a 68-year-old female, who underwent total hip arthroplasty approximately 3 days earlier. When she was ambulating, she felt a significant increase in her pain as well as shortening of her left lower extremity. She was subsequently diagnosed with a [place] B2 periprosthetic femur fracture at the site of her left total hip arthroplasty. Her index surgery was performed by Dr. Randall using Nguyễn hardware. The patient was then subsequently transferred here for surgical intervention. DESCRIPTION OF PROCEDURE: The patient was met in the preoperative holding area. Informed consent was reviewed. She was transferred to the operating room in stable condition. She was placed in the lateral decubitus position using the hip medical administrator system. All bony prominences were well padded. The left lower extremity was sterilely prepped and draped in standard fashion. Preoperative antibiotics were given per protocol. A surgical time-out was performed. We began with a curvilinear incision in line with her previous incision using an anterior lateral approach. Her hari were removed. The tissue was incised. The previous Vicryl suture was removed using a rongeur. Electrocautery was then used to carry the dissection down to the level of the IT band. The IT band was incised in line with its fibers. The gluteus medius and gluteus minimus were identified and partially dissected from the attachment of the greater trochanter in line with the previous incision. The vastus lateralis was identified and retracted anteriorly at the distal aspect and posteriorly at the proximal aspect revealing large longitudinal fracture with communication to the calcar. The stem was noted to be significantly subsided. We therefore placed large reduction clamps around the fracture at this time for provisional fixation. The stem was then extracted using the appropriate grasper without difficulty. At this point, the reduction clamps were further compressed yielding an anatomic reduction of the proximal femur. Fracture hematoma had been previously removed using a curette and hemostat. At this point, we curetted out the debris within the femoral canal. We then used to sequentially increasing reamers to ream 4 diaphyseal fitting stem. We then sequentially broached to a size 15. The wound was then copiously irrigated with Betadine normal saline followed by plain normal saline. The final implant was then trialed with a standard head noting to be the most appropriate fit with excellent stability and congruence. At this point, we elected to place our final components consisting of a size 15 Nguyễn stem, which was diaphyseal fitting. It was gently malleted into place. Prior to this, 5 cerclage wires were placed circumferentially around the proximal femur to secure a reduction. This was performed prior to reaming and broaching. A standard wire Passer was used and the ends were trimmed appropriately. We then trialed our prior to placing the final components. The hip was taken through range of motion with excellent stability. The wound was then copiously irrigated once more. The IT band was closed and the capsule was closed with #5 Tycron followed by #1 Vicryl followed by 0 Vicryl in the fat layer followed by 2-0 Vicryl in the subcutaneous and dermal layer followed by 3-0 Novafil in horizontal mattress fashion. A Hemovac drain was placed in subcutaneous tissue. Incisional wound VAC was used given the patient's significant adipose tissue and revision surgery to reduce the likelihood of drainage. The patient will be toe-touch weightbearing. A sterile dressing was applied consisting of the incisional wound VAC with Adaptic on the skin itself. The patient will be on antibiotics. She will continue DVT prophylaxis. Dr. Garcia was present for all critical portions of the case and made all essential decisions regarding this patient's care. Electronically Signed by: Pete Garcia M.D. 10/07/2018 10:34 A Pete Garcia M.D. I was present for the mireles and critical portions and I was otherwise immediately available to assist. Date Dict: 10/02/2018/08:30 P/George Patel MD Date Trans: 10/03/2018 02:44 A/july DN_JN:[id number] cc: Christina Jarvis D.O. [address] [place] [id number] Community General HospitalVITAMIN D 25-HYDROXYon 40-26-2824NFIZFMY D 25-OH27.7 ng/mLLow30.0-80.0The [facility] Medical CenterComment on above:Result Comment: >80.0 Toxicity possible Performed By: #### [id number] #### [facility] [address]*ANAEROBIC CULTUREon 10-02-2018*ANAEROBIC CULTUREClinical Report: (D) Specimen/Source: SWAB/INTRAOP SPEC Collected: 10/02/2018 17:38 Status: Final Last Updated: 10/07/2018 08:20 (1) 1.) LEFT HIP CULT RES (Final) No Anaerobes Isolated 5 DaysNoSouthwest General Health CenterComment on above:Order Comment: No: Do not add to previous drawPerformed By: #### [id number] #### [facility] [address] [facility] [place] [address], [facility]*WOUND CULTUREon 10-02-2018*WOUND CULTUREClinical Report: (D) Specimen/Source: WOUND/INTRAOP SPEC Collected: 10/02/2018 17:38 Status: Final Last Updated: 10/07/2018 07:52 (1) 1.) LEFT HIP GRAM (Final) No Polys Seen No Bacteria Seen CULT RES (Final) No Growth Day 5NoSouthwest General Health CenterComment on above: Order Comment: No: Do not add to previous drawPerformed By: #### [id number] #### [facility] [address] [place] [address], USABASIC METABOLIC PANELon 68-98-8008Kkvmynd mass conc8.5 mg/dLLow8.6-10.3The [facility] CenterComment on above:Order Comment: No: Do not add to previous drawPerformed By: #### 13371, 08145 #### [facility] [address] [place] [address], USAChloride molar bold009 mmol/EDmquhx32-636Fbm [facility] CenterComment on above:Order Comment: No: Do not add to previous drawPerformed By: #### 58590, 92979 #### [facility] [address] [place] [address], USACO2 molar conc18 mmol/QPsk21-99Okk [facility] CenterComment on above:Order Comment: No: Do not add to previous draw Performed By: #### 14671, 17184 #### [facility] [address] [place] [address], USACreatinine mass conc0.66 mg/dLNormal0.60-1.20The [facility] CenterComment on above:Order Comment: No: Do not add to previous drawPerformed By: #### 11937, 16792 #### [facility] [address] [place] [address], USAGFR/1.73 sq M predicted among blacks MDRD vol rate/area (S/P/Bld)mL/min/{1.73_m2}Normal>60The [facility] CenterComment on above:Order Comment: No: Do not add to previous drawPerformed By: #### 47692, 84389 #### [facility] [address] [place] [address], USAGFR/1.73 sq M predicted among non-blacks MDRD vol rate/area (S/P/Bld)mL/min/{1.73_m2}Normal>60The [facility] Comment on above:Order Comment: No: Do not add to previous drawPerformed By: #### 61453, 83352 #### [facility] [address] [place] [address], USAGlucose mass ydqn658 mg/gXQjsr34-779Ktm [facility] CenterComment on above:Order Comment: No: Do not add to previous drawPerformed By: #### 46838, 26358 #### [facility] [address] [place] [address], USAPotassium molar conc4.8 mmol/LNormal3.5-5.1The [facility] CenterComment on above:Order Comment: No: Do not add to previous drawPerformed By: #### 54519, 30143 #### [facility] [address] [place] [address], USASodium molar cwwt025 mmol/JZjq180-411Erb [facility] CenterComment on above:Order Comment: No: Do not add to previous drawPerformed By: #### 21624, 34303 #### [facility] [address] [place] [address], USAUrea nitrogen mass conc13 mg/dLNormal7-25The [facility] CenterComment on above:Order Comment: No: Do not add to previous drawPerformed By: #### 93746, 48290 #### [facility] [address] [place] [address], [facility] COMPLETE BLOOD COUNTon 30-64-6174Oisbkmxlrie distribution width Ratio (RBC)14.1 %Yuzwxo95.5-15.0The [facility] Medical CenterComment on above:Order Comment: No: Do not add to previous draw Performed By: #### 40412 #### [facility] [address] [place] [address], [facility] UNITHematocrit Volume Fraction (Bld)25.9 %Low36.0-45.0The [facility] Medical CenterComment on above:Order Comment: No: Do not add to previous drawPerformed By: #### 91334 #### [facility] [address] [facility] [place] [address], [facility] UNITHemoglobin mass conc (Bld)8.6 g/dLLow12.0-15.0The [facility] CenterComment on above:Order Comment: No: Do not add to previous drawPerformed By: #### 18029 #### [facility] [address] [facility] [place] [address], [facility] Entitic mass (RBC)30.2 deLjfmgh70.0-33.0The [facility] CenterComment on above:Order Comment: No: Do not add to previous drawPerformed By: #### 72875 #### [facility] [address] [place] [address], [facility] mass conc (RBC)33.2 g/cJShavil25.0-35.0The [facility] CenterComment on above:Order Comment: No: Do not add to previous drawPerformed By: #### 17089 #### [facility] [address] [facility] [place] [address], [facility] Entitic volume (RBC)90.9 pQMthora47.0-98.0The [facility] CenterComment on above:Order Comment: No: Do not add to previous drawPerformed By: #### 84815 #### [facility] [address] [place] [address], USANucleated RBC/100 WBC Ratio (Bld)0 %Normal0-0The [facility] Medical CenterComment on above:Order Comment: No: Do not add to previous drawPerformed By: #### 47579 #### [facility] [address] [place] [address], USAPLAT KUK598 10*3/hOAvddgm087-210Fhd [facility] CenterComment on above:Order Comment: No: Do not add to previous draw Performed By: #### 86049 #### [facility] [address] [place] [address], [facility] UNITRBC #/vol (Bld)2.85 10*6/uLLow3.80-5.00The [facility] CenterComment on above:Order Comment: No: Do not add to previous drawPerformed By: #### 13166 #### [facility] [address] [place] [address], [facility] UNITWBC #/vol (Bld)8.00 10*3/uLNormal4.00-10.60The [facility] CenterComment on above:Order Comment: No: Do not add to previous drawPerformed By: #### 77573 #### [facility] [address] [place] [address], USAErythrocyte distribution width Ratio (RBC)14.2 %Normal 11.5-15.0The [facility] Medical CenterComment on above:Order Comment: This order is a replacement of the rejected order with accession number [id number].Performed By: #### 16041 #### [facility] [address] [place] [address], USAHematocrit Volume Fraction (Bld)27.0 %Low36.0-45.0The [facility] Medical CenterComment on above:Order Comment: This order is a replacement of the rejected order with accession number [id number].Performed By: #### 11819 #### [facility] [address] [place] [address], [facility] UNITHemoglobin mass conc (Bld)8.7 g/dLLow12.0-15.0The [facility] Medical CenterComment on above:Order Comment: This order is a replacement of the rejected order with accession number [id number].Performed By: #### 66314 #### [facility] [address] [facility] [place] [id number], [facility] Entitic mass (RBC)29.6 awEspohj90.0-33.0The [facility] Medical CenterComment on above:Order Comment: This order is a replacement of the rejected order with accession number [id number].Performed By: #### 90162 #### [facility] [address] [facility] [place] [address], [facility] mass conc (RBC)32.2 g/oSGcoqjz41.0-35.0The [facility] CenterComment on above:Order Comment: This order is a replacement of the rejected order with accession number [id number].Performed By: #### 86912 #### [facility] [address] [place] [address], [facility] Entitic volume (RBC)91.8 sSWmzpsy49.0-98.0The [facility] CenterComment on above:Order Comment: This order is a replacement of the rejected order with accession number [id number].Performed By: #### 34629 #### [facility] [address] [place] [address], [facility] UNITNucleated RBC/100 WBC Ratio (Bld)0 %Normal0-0The [facility] Medical CenterComment on above:Order Comment: This order is a replacement of the rejected order with accession number [id number].Performed By: #### 62160 #### [facility] [address] [place] [address], USAPLAT IEB046 10*3/zANdyfvt054-653Efe [facility] CenterComment on above:Order Comment: This order is a replacement of the rejected order with accession number [id number].Performed By: #### 85594 #### [address] [place] [address], [facility] UNITRBC #/vol (Bld)2.94 10*6/uLLow3.80-5.00The [facility] Medical CenterComment on above:Order Comment: This order is a replacement of the rejected order with accession number [id number].Performed By: #### 15974 #### [place] [address], [facility] UNITWBC #/vol (Bld)5.98 10*3/uLNormal4.00-10.60The [facility] Medical CenterComment on above:Order Comment: This order is a replacement of the rejected order with accession number [id number].Performed By: #### 49482 #### [place] [address], [facility] LEFT 1 OR 2 VWS WITH PELVISon 28-76-7488QNG LEFT 1 OR 2 VWS WITH PELVISUnOhioHealth [facility] Department of Radiology [address] [place] [id number] Patient Name: KAYLEIGH BROWN : 1950 Sex: F Age: Race: White Pt. Location: [id number] Patient Status: I Ordered Date: 10/02/2018 7:15:00 AM Completed Date: 10/02/2018 07:37 PM Requesting Provider: PETE GARCIA Attending Provider: PETE GARCIA Report Copy To: Signs & Symptoms: left hip arthroplasty with History: left hip arthroplasty with Comments: left hip arthroplasty with Exam: HIP LEFT 1 OR 2 VWS WITH PELVIS HIP LEFT 1 OR 2 VWS WITH PELVIS 10/02/2018 7:37 PM EST SIGNS AND SYMPTOMS: left hip arthroplasty with TECHNOLOGIST COMMENTS: left hip revision vs ORIF Dr. Garcia 9 seconds fluoro time QUESTION FOR THE RADIOLOGIST: left hip arthroplasty with PROTOCOL: AP(PA) and Lateral views were obtained. COMPARISON: None FINDINGS: Soft tissues: Bones: Joints: IMPRESSION: Documentation Electronically signed by:Chuckie Harris. Transcribed by: [email or web address], User Resident: Electronically Signed by: CHUCKIE HARRIS @ 10/03/2018 05:06 [facility]Comment on above:Order Comment: No: Do not add to previous drawPORTABLE HIP LEFT 1 OR 2 VWS WITH PELVISon 28-81-5685QISLEFYZ HIP LEFT 1 OR 2 VWS WITH PELVISUnOhioHealth [facility] Department of Radiology [address] [place] [id number] Patient Name: KAYLEIGH BROWN : 1950 Sex: F Age: Race: White Pt. Location: [id number] Patient Status: I Ordered Date: 10/02/2018 8:20:00 PM Completed Date: 10/02/2018 08:47 PM Requesting Provider: HARPAL AZAR Attending Provider: PETE GARCIA Report Copy To: Signs & Symptoms: Post OP History: Patient history not available Comments: Hardware Evaluation Exam: PORTABLE HIP LEFT 1 OR 2 VWS WITH PELVIS PORTABLE HIP LEFT 1 OR 2 VWS WITH PELVIS 10/02/2018 8:47 PM EST SIGNS AND SYMPTOMS: Post OP TECHNOLOGIST COMMENTS: Post op check hardware placement. QUESTION FOR THE RADIOLOGIST: Hardware Evaluation PROTOCOL: AP(PA) and Lateral views were obtained. COMPARISON: October 02, 2018 FINDINGS: Soft tissues: Postoperative change Bones: Moderate osteoporosis Joints: Left total hip with cerclage wires around the femur in good alignment Right [place] hip with mild arthritis IMPRESSION: Postoperative left total hip in satisfactory alignment with soft tissue drain and air Electronically signed by:Chuckie Harris. Transcribed by: [email or web address], User Resident: Electronically Signed by: CHUCKIE HARRIS @ 10/03/2018 10:05 AMNormalKettering Health Main CampusComment on above:Order Comment: No: Do not add to previous drawSODIUM BLOODon 15-97-2187Scaral molar wtmy720 mmol/WAww993-168Iuu [facility] Medical CenterComment on above:Order Comment: No: Do not add to previous drawPerformed By: #### [id number] #### [facility] [address] [place] [address], USAVENOUS BLOOD GASon 33-52-1888NESD EXCESS2 mmol/LNormal-2-2 The UC Medical CenterComment on above:Performed By: #### [id number] #### [facility] [address] [place] [address], USADELIVERY SYSTEMSUNKNOWN - ORNormalThe UC Medical CenterComment on above:Performed By: #### [id number] #### [facility] [address] [place] [address], USAHCO3 molar conc (Bld)27 mmol/JBbudhg43-90Bfl [facility] Medical CenterComment on above:Performed By: #### [id number] #### [facility] [address] [place] [address], USAOxygen ppres (Bld)35 mm[Hg]Olq89-837Ary [facility] Medical CenterComment on above:Performed By: #### [id number] #### [facility] [address] [place] [address], USAOxygen saturation in Blood65.8 %Uzichr52.0-85.0The [facility] Medical CenterComment on above:Performed By: #### [id number] #### [facility] [address] [place] [address], XHNKTM649 ebHbSsbtoh36-25Zps [facility] Medical CenterComment on above:Performed By: #### [id number] #### [facility] [address] [address], USApH (Bld)7.40 [pH]Normal7.33-7.43The [facility] Medical CenterComment on above:Performed By: #### [id number] #### [facility] [address] [place] [address], USAVITAMIN D 25-HYDROXYon 75-50-1812QZBOFTG D 25-OH27.4 ng/mL Low30.0-80.0The [facility] Medical CenterComment on above:Result Comment: >80.0 Toxicity possiblePerformed By: #### [id number], [id number] #### [facility] [address] [place] [address], USABASIC METABOLIC PANELon 46-29-6717Nezvipw mass conc9.1 mg/dLNormal8.6-10.3The [facility] Medical CenterComment on above:Order Comment: No: Do not add to previous drawPerformed By: #### [id number] #### [facility] [address] [place] [address], USAChloride molar conc98 mmol/UDvazmu91-668Flw [facility] Medical CenterComment on above:Order Comment: No: Do not add to previous drawPerformed By: #### [id number] #### [facility] [address] [place] [address], USACO2 molar conc26 mmol/GRoxmot14-24Opd [facility] Medical CenterComment on above:Order Comment: No: Do not add to previous draw Performed By: #### [id number] #### [facility] [address] [place] [address], USACreatinine mass conc0.66 mg/dLNormal0.60-1.20The [facility] Medical CenterComment on above:Order Comment: No: Do not add to previous drawPerformed By: #### [id number] #### [facility] [address] [place] [address], USAGFR/1.73 sq M predicted among blacks MDRD vol rate/area (S/P/Bld)mL/min/{1.73_m2}Normal>60The [facility] Medical CenterComment on above:Order Comment: No: Do not add to previous drawPerformed By: #### [id number] #### [facility] [address] [place] [address], USAGFR/1.73 sq M predicted among non-blacks MDRD vol rate/area (S/P/Bld)mL/min/{1.73_m2}Normal>60The [facility] Comment on above:Order Comment: No: Do not add to previous drawPerformed By: #### [id number] #### [facility] [address] [place] [address], USAGlucose mass ezax817 mg/uYFkqc36-331Tvl [facility] Medical CenterComment on above:Order Comment: No: Do not add to previous drawPerformed By: #### [id number] #### [facility] [address] [place] [address], USAPotassium molar conc4.2 mmol/LNormal3.5-5.1The [facility] Medical CenterComment on above:Order Comment: No: Do not add to previous drawPerformed By: #### [id number] #### [facility] [address] [place] [address], USASodium molar vbvk446 mmol/QTdd442-445Khx [facility] Medical CenterComment on above:Order Comment: No: Do not add to previous drawPerformed By: #### [id number] #### [facility] [address] [place] [address], USAUrea nitrogen mass conc13 mg/dLNormal7-25The [facility] Medical CenterComment on above:Order Comment: No: Do not add to previous drawPerformed By: #### 74087 #### [facility] [address] [address], [facility] SERVICE UNITCBC COMPLETE BLOOD COUNTon 82-38-7000Hfnwzpltsgj distribution width Ratio (RBC)14.2 %Bacuyd81.5-15.0The [facility] Medical CenterComment on above:Order Comment: No: Do not add to previous draw Performed By: #### [id number] #### [facility] [address] [place] [address], [facility] SERVICE UNITHematocrit Volume Fraction (Bld)26.7 %Low36.0-45.0The [facility] Medical CenterComment on above:Order Comment: No: Do not add to previous drawPerformed By: #### [id number] #### [facility] [address] [place] [address], USAHemoglobin mass conc (Bld)8.7 g/dLLow12.0-15.0The [facility] Medical CenterComment on above:Order Comment: No: Do not add to previous drawPerformed By: #### [id number] #### [facility] [address] [place] [address], [facility] Entitic mass (RBC)30.2 thFubmzm37.0-33.0The [facility] Medical CenterComment on above:Order Comment: No: Do not add to previous drawPerformed By: #### [id number] #### [facility] [address] [place] [address], [facility]HC mass conc (RBC)32.6 g/pMDrjond62.0-35.0The [facility] Medical CenterComment on above:Order Comment: No: Do not add to previous drawPerformed By: #### [id number] #### [facility] [address] [place] [address], [facility] Entitic volume (RBC)92.7 fLTbcbeg08.0-98.0The [facility] Medical CenterComment on above:Order Comment: No: Do not add to previous drawPerformed By: #### [id number] #### [facility] [address] [place] [address], [facility] SERVICE UNITNucleated RBC/100 WBC Ratio (Bld)0 %Normal0-0The [facility] Medical CenterComment on above:Order Comment: No: Do not add to previous drawPerformed By: #### [id number] #### [facility] [address] [place] [address], [facility] SERVICE UNITPLAT JOY237 10*3/hTBlcqyb815-195Aoo [facility] Medical CenterComment on above:Order Comment: No: Do not add to previous draw Performed By: #### [id number] #### [facility] [address] [place] [address], [facility] SERVICE UNITRBC #/vol (Bld)2.88 10*6/uLLow3.80-5.00The [facility] Medical CenterComment on above:Order Comment: No: Do not add to previous drawPerformed By: #### [id number] #### [facility] [address] [place] [address], [facility] SERVICE UNITWBC #/vol (Bld)6.63 10*3/uLNormal4.00-10.60The [facility] Medical CenterComment on above:Order Comment: No: Do not add to previous drawPerformed By: #### [id number] #### [address] [place] [address] [address], USACT LOWER EXTREMITY WO CONTRAST LEFTon 25-32-0700PV LOWER EXTREMITY WO CONTRAST LEFTUnOhioHealth Dublin [facility] Department of Radiology [address] [place] [id number] Patient Name: KAYLEIGH BROWN : 1950 Sex: F Age: Race: White Pt. Location: [id number] Patient Status: I Ordered Date: 10/01/2018 4:45:00 PM Completed Date: 10/01/2018 06:37 PM Requesting Provider: COLIN STEWART Attending Provider: PETE GARCIA Report Copy To: Signs & Symptoms: Fracture History: Patient history not available Comments: R/O Fractures, CT scan of entire femur for preop evaluation Exam: CT LOWER EXTREMITY WO CONTRAST LEFT CT LOWER EXTREMITY WO CONTRAST LEFT 10/01/2018 6:37 PM EST SIGNS AND SYMPTOMS: Fracture TECHNOLOGIST COMMENTS: Pt co/ left hip/femur pain. QUESTION FOR THE RADIOLOGIST: R/O Fractures, CT scan of entire femur for preop evaluation PROTOCOL: Axial CT images of the extremity were obtained without IV contrast. TECHNIQUE: Multidetector CT axial slices of the left femur without IV contrast. Multiplanar reformats were performed and viewed on a separate workstation and reviewed to further define anatomy and possible pathology. COMPARISON: None. FINDINGS: Skeleton: There is a nondisplaced periprosthetic fracture. A fracture across the base of the greater trochanter is present which extends from the base of the greater trochanter and spirals to about 15 cm below the base of the greater trochanter. The fracture ends just at the stem of the total hip arthroplasty. There is also a faint fracture line across the base of the lesser trochanter. Superficial soft tissues: Skin hari, postoperative air and swelling. Fluid and air within the trochanteric bursa. Muscles: Intact with adjacent myofascial edema and with multiple air bubbles in the anterolateral vastus lateralis. Tendons: Intact. Joint cavity: Moderate knee joint effusion. Small hip joint effusion. IMPRESSION: Periprosthetic intertrochanteric nondisplaced fracture with an elongated spiral component which extends to the tip of the arthroplasty stem. Electronically signed by:Chuckie Harris. Transcribed by: [email or web address], User Resident: Electronically Signed by: CHUCKIE HARRIS @ 10/02/2018 09:09 [facility] HospitalComment on above:Order Comment: R/O Fractures, CT scan of entire femur for preop evaluationFEMUR LEFT 2 [facility] 15-88-8732GCLEE LEFT 2 [facility]niHolmes [facility] Department of Radiology [address] [place] [id number] Patient Name: KAYLEIGH BROWN : 1950 Sex: F Age: Race: White Pt. Location: [id number] Patient Status: I Ordered Date: 10/01/2018 3:55:00 PM Completed Date: 10/01/2018 05:18 PM Requesting Provider: COLIN STEWART Attending Provider: PETE GARCIA Report Copy To: Signs & Symptoms: Pain ( specify Location) History: Patient history not available Comments: R/O FX Exam: FEMUR LEFT 2 VWS FEMUR LEFT 2 VWS 10/01/2018 5:18 PM EST SIGNS AND SYMPTOMS: Pain ( specify Location) TECHNOLOGIST COMMENTS: Left femur pain. History of left hip replacement x 1 week ago. QUESTION FOR THE RADIOLOGIST: R/O FX PROTOCOL: AP(PA) and Lateral views were obtained. COMPARISON: None FINDINGS: Postoperative left total hip arthroplasty with skin hari and soft tissue air Periprosthetic fracture extending from the intertrochanteric area to the tip of the stem laterally, better seen by CT IMPRESSION: Post left total hip arthroplasty with periprosthetic fracture extending from the intertrochanteric area to the tip of the femoral stem laterally, better seen by CT Electronically signed by:Chuckie Harris. Transcribed by: [email or web address], User Resident: Electronically Signed by: CHUCKIE HARRIS @ 10/02/2018 09:33 AMNormalThe UC Medical CenterComment on above:Order Comment: R/O FXPROTHROMBIN TIMEon 89-85-8509MTI Coag RelTime (PPP)1.12 {INR}Normal0.91-1.16The [facility] Medical CenterComment on above:Order Comment: No: Do not add to previous drawResult Comment: ACCCP RECOMMENDED INR FOR WARFARIN THERAPY ------- CONDITION INR PROPHYLAXIS OF VENOUS THROMBOSIS 2-3 (HIGH-RISK SURGERY) TREATMENT OF VENOUS THROMBOSIS 2-3 TREATMENT OF PULMONARY EMBOLISM 2-3 PREVENTION OF SYSTEMIC EMBOLISM: 2-3 ACUTE MYOCARDIAL INFARCTION TISSUE HEART VALVES VALVULAR HEART DISEASE ATRIAL FIBRILLATION RECURRENT SYSTEMIC EMBOLISM MECHANICAL HEART VALVE 2.5-3.5 FROM: ORAL ANTICOAGULANTS. MECHANISM OF ACTION, CLINICAL EFFECTIVENESS, AND OPTIMAL THERAPEUTIC RANGE. CHEST 1995;108:231S-246S.Performed By: #### [id number] #### [facility] [address] [place] [address], [facility] SERVICE UNITProthrombin time (PT) Coag time (PPP)14.4 zEbydgl77.3-14.8 The [facility] Medical CenterComment on above:Order Comment: No: Do not add to previous drawResult Comment: ALL RESULTS MUST BE INTERPRETED WITH RESPECT TO BLOOD DRAWING ARTIFACT OR DILUTION ERROR OF ANTICOAGULANT AT THE TIME OF SAMPLING.Performed By: #### [id number] #### [facility] [address] [place] [address], USARBC'S 2 UNITSon 13-29-5157BBNCJXBVIP INTERP 1CMercy Health Defiance HospitalComment on above:Performed By: #### [id number] #### [facility] [address] [place] [address], [facility] SERVICE UNITCROSSMATCH INTERP 2CMercy Health Defiance HospitalComment on above:Performed By: #### [id number] #### [facility] [address] [place] [address], [facility] UNITProtein mass wlqx185 g/dLNoSouthwest General Health CenterComment on above:Performed By: #### [id number] #### [facility] [address] [place] [address], [facility] UNITProtein mass concRENoSouthwest General Health CenterComment on above:Result Comment: Result changed by IF on 10/02/2018 16:58. The previous value was XM. Result changed by IF on 10/02/2018 21:55. The previous value was IS. Result changed by IF on 10/05/2018 06:35. The previous value was XM.Performed By: #### [id number] #### [facility] [address] [place] [address], USAUNIT ABO 1[facility] Comment on above:Performed By: #### [id number] #### [facility] [address] [place] [address], USAUNIT ABO 2[facility] Comment on above:Performed By: #### [id number] #### [facility] [address] [place] [address], USAUNIT ID [id number] Community General HospitalComment on above:Performed By: #### [id number] #### [facility] [address] [place] [address], USAUNIT ID [id number] Community General HospitalComment on above:Performed By: #### [id number] #### [facility] [address] [place] [address], USAUNIT RH 1PosiUpper Valley Medical CenterComment on above:Performed By: #### 81802 #### [facility] [address] [place] [address], USAUNIT RH 2PositiveParma Community General HospitalComment on above:Performed By: #### [id number] #### [facility] [address] [place] [address], USATYPE AND SCREENon 89-42-1612NIQ INTERPRETATIONOhioHealth Van Wert HospitalComment on above:Performed By: #### 76121 #### [facility] [address] [place] [address], USARH INTERPRETATIONPositiveParma Community General HospitalComment on above:Performed By: #### 08625 #### [facility] Vital Signs Date TimeVital SignValuePerforming QypkfkauqTufearax26-70-8182 09:04-0400Body coiovs952.72 cmDaifeanyi Jarvis DO Work Phone: [facility]08-20-2025 09:04-0400 Body mass index (BMI) [Ratio]31.3 kg/h5Fxjcgifeanyi Jarvis DO Work Phone: [phone]48[facility]08-20-2025 09:04-0400 Body xvaptuxawbn68 [degF]Christina Jarvis DO Work Phone: [phone]08-20-2025 09:04-0400 Body .44 kgDaifeanyi Lockwoodzac DO Work Phone: [phone]11[facility]08-20-2025 09:04-0400 Diastolic blood nhypxgre44 mm[Hg]Christina Jarvis DO Work Phone: [phone]65[facility]08-20-2025 09:04-0400 Heart rate83 /minDavikaron Jamila DO Work Phone: [phone]08-20-2025 09:04-0400 SaO2% (BldA) [Mass fraction]98 %Christina Jarvis DO Work Phone: [phone]08-20-2025 09:04-0400 Systolic blood xtviskoi964 mm[Hg]Christina Jarvis DO Work Phone: [phone]11-08-2024 11:55-0500 Body exzxbg891.72 cmCore[facility]11-08-2024 11:55-0500Body mass index (BMI) [Ratio]33.5 kg/n0BpjzhaqieCorey Hospital11-08-2024 11:55-0500Body rikwctccjnj76.6 [degF][facility]11-08-2024 11:55-0500Body iiauax581.01 kgCore[facility] Hospital11-08-2024 11:55-0500Diastolic blood hlbnzxyv91 mm[Hg][facility] 08-31-2024 11:55-0500Heart rate89 /[facility] 08-31-2024 11:55-0500Respiratory rate16 /[facility] 08-31-2024 11:55-2983PyD3% (BldA) [Mass fraction]97 %[facility]11-08-2024 11:55-0500Systolic blood rdvuzufx216 mm[Hg][facility]08-05-2024 14:42-0400Body nzuixy232.41 cmDO Christina Jarvis Work Phone: [phone]08-05-2024 14:42-0400 Body mass index (BMI) [Ratio]46.3 kg/m2DO Christina Jarvis Work Phone: [phone]08-05-2024 14:42-0400 Body esgsccylbbw12 [degF]DO Christina Jarvis Work Phone: [phone]08-05-2024 14:42-0400 Body owgnvf41.97 kgDO Christina Jarvis Work Phone: [phone]08-05-2024 14:42-0400 Diastolic blood lyvqtyal25 mm[Hg]DO Christina Jarvis Work Phone: [phone]08-05-2024 14:42-0400 Heart rate94 /Yvette Jarvis Work Phone: [phone]08-05-2024 14:42-0400 Respiratory rate18 /Yvette Jarvis Work Phone: [phone]08-05-2024 14:42-0400 SaO2% (BldA) [Mass fraction]95 %DO Christina Jarvis Work Phone: [phone]08-05-2024 14:42-0400 Systolic blood mm[Hg]DO Christina Jarvis Work Phone: [phone]03-18-2022 11:30-0400 Body dzyjno723.26 cmDaifeanyi Jarvis Other [employer] Other 03-18-2022 11:30-0400Body mass index (BMI) [Ratio] 32.63 kg/s6GmqwfChristina Jarvis Other [employer] Other 03-18-2022 11:30-0400Body czmftxjcxpy18.6 [degF]Christina Jarvis Other [employer] Other 03-18-2022 11:30-0400Body xzwzpy524.25 kgChristina Jarvis Other [employer] Other 03-18-2022 11:30-0400Diastolic blood xvesnukf84 mm[Hg] Christina Jarvis Other [employer] Other 03-18-2022 11:30-0400Respiratory rate18 /minDzaheer Jarvis Other [employer] Other 03-18-2022 11:30-1216PyL7% (BldA) [Mass fraction]98 % Christina Jarvis Other [employer] Other 03-18-2022 11:30-0400Systolic blood efzxamdi016 mm[Hg] Christina Jarvis Other [employer] Other Encounters Encounter DateEncounter TypeCare ProviderFacilityStart: 07-66-6576hgksykired Christina JarvisFacility:[facility]: 06-12-2025 End: 08-36-1643glbmuzsruiVslcv Girvin DO Work Phone: [facility] Work Phone: Start: 06-12-2025 End: 99-73-4950Lemxjzq encounter procedureDaifeanyi Jarvis DO-[facility] Work Phone: Start: 06-10-2025 End: 40-38-8309Cwbrnzc encounter procedureDaifeanyi Jarvis DO-[facility] Work Phone: Start: 06-10-2025 End: 84-58-0905bcvjibdrxoIzves Girvin DO Work Phone: [facility] Work Phone: Start: 08-31-2024 End: 63-58-6736utkpmbonobSjtyplkoo [facility] Work Phone: Start: 08-31-2024 End: 75-93-8949Wdgypnn encounter [facility]Our [facility] Work Phone: Start: 05-28-2024 End: 59-81-1901lkqyanzmyrHZ Christina Jarvis Work Phone: [facility] Work Phone: Start: 05-28-2024 End: 11-71-3002Ejjyjsf encounter procedureDO Christina Jarvis Work Phone: [facility] Work Phone: Start: 05-24-2024 End: 01-72-5135hdranclmbhZX David Girvin Work Phone: [facility] Work Phone: Start: 05-24-2024 End: 94-54-9521Xmbsooz encounter procedureDO Christina Jarvis Work Phone: [facility] Work Phone: Start: 80-41-8989Tdy-patient / Non-visitDO Christina Jarvis Work Phone: [facility] Work Phone: Start: 05-18-2023 End: 18-47-5772tgkgrkxiulBsjcr Girvin Other [employer] Other Start: 60-19-9480Pziqiiger encounterDaifeanyi [facility]vueStart: 02-04-2023 End: 45-96-5796dzjunugjgcMI David Jamila Work Phone: [facility] Work Phone: Start: 02-04-2023 End: 32-56-0201Qgpmecu encounter procedureDO Christina Jarvis Work Phone: [facility] Work Phone: Start: 01-28-2023 End: 70-29-9663jvpiaxqqgdZeytt Girvin Other [employer] Other Start: 60-62-0735Rdifshfmj encounterDavikaron [facility]vueStart: 12-22-2022 End: 78-03-1638qaymeulwfjRS MARY MAY .Facility:R8Qubzj: 10-11-2022 End: 47-26-7856ttziugbqbuCulos Girvin Other [employer] Other Start: 56-82-6335Ivbjmfvdx encounterDavikaron Cole [facility]vueStart: 09-29-2022 End: 27-45-4972flfyiqlrsxPahhm Girvin Other [employer] Other Start: 05-47-7362Tjsxgrqzk encounterDavikaron CunninghamG [facility] [place]vueStart: 01-08-2022 End: 02-15-9382sujvabvrmiIbuvc Girvin Other [employer] Other Start: 97-46-7890Uvlmym outpatient visit 25 minutes Christina Cole [facility]vueStart: 01-02-2019 End: 51-17-1139Jfbznsy encounter procedureGREGORY OTTOFacility:[facility]tart: 11-27-2018 End: 76-94-5224Vqbgxmy encounter procedureGREGORY OTTOFacility:[facility]tart: 10-18-2018 End: 82-54-5168Uykpjsm encounter procedureGREGORY OTTOFacility:[facility]tart: 10-01-2018 End: 17-74-5494Snwjjfxkzr and management of inpatientNABIL EBRAHEIMFacility:[facility] Procedures DateProcedureProcedure DetailPerforming ClinicianStart: 08-00-4656Uktfk culture Christina Jarvis Work Phone: Start: 82-54-9702Qwyolxij screenNABIL EBRAHEIMComment on above:Performed By: #### [id number] #### [facility] [address] [place] [address], USAStart: 48-69-0104SUGIVRC OF SYNTH SUB FROM L HIP JT, FEMORAL, OPEN APPROACHNABIL EBRAHEIMStart: 33-37-9549CKEAVWW L HIP JT, FEMORAL W METAL, UNCEMENT, OPENNABIL EBRAHEIMStart: 44-47-3442WZGQKJRQVP LEFT FEMORAL SHAFT WITH INT FIX, OPEN APPROACHNABIL EBRAHEIMStart: 26-46-5912Wfojxudg screen PETE EBRAHEIMComment on above:Performed By: #### [id number] #### [facility] [address] [place] [address], USAStart: 69-75-8157IRXZGGOVI NONAUT RED BLOOD CELLS IN PERIPH VEIN, PERCNABIL EBRAHEIM Plan of Treatment DateCare ActivityDetailAuthorStart: 94-19-9508Jodhgkkh identified in Urine by CultureUrine [facility] Hospitaltart: 90-26-6337Lswad [facility] Centertart: 48-42-3643Lggznhko identified in Urine by [facility] Hospitaltart: 58-22-6233Wthiuaoo identified in Urine by [facility] HospitalBacteria identified in Urine by [facility] HospitalComprehensive metabolic 1999 panel - Serum or PlasmaCore[facility] Comprehensive metabolic 2000 panel - Serum or PlasmaCorey HospitalGlucose measurement estimated from glycated hemoglobinCorey HospitalGlucose measurement estimated from glycated hemoglobinCorey HospitalGlucose measurement estimated from glycated hemoglobin [facility] HospitalHemoglobin A1c/Hemoglobin.total in Blood [facility] HospitalHemoglobin A1c/Hemoglobin.total in Blood [facility] HospitalUrine cultureCamarillo State Mental Hospital Immunizations Immunization DateImmunizationNotesCare ZbptvnnaRinmanna22-24-4361BRBJA-87 Comirnaty (Pfizer) Tri-Sucrose 12+[facility]10-22-2024 influenza, high dose seasonal, preservative-freeCorey Hospital01-04-2024RSV, preF3, adj, pfCore[facility] Hospital10-02-2023 COVID-19 (PFIZER) 12Y and older[facility] 96-06-7345Eolujmfri vaccine, quadrivalent, adjuvantedCore[facility] Hospital09-22-2022COVID-19 mRNA Bivalent Booster (Pfizer)[facility]09-22-2022Fluzone QIV High-Dose 65YR+[facility]03-18-2022Shingrix 50 MCG/0.5ML; Translations: [Shingrix 50 MCG/0.5ML] Christina Jarvis Other [employer] Other [id number]-26 Vaccine Pfizer - Documentation Purposes OnlyChristina Jarvis Other [facility]09-20-2021influenza, seasonal, injectableDaifeanyi Jarvis Other [facility]09-20-2021Fluzone QIV High-Dose 65YR+[facility]02-23-2021COVID-19 Vaccine Pfizer - Documentation Purposes OnlyChristina Jarvis Other [facility]02-02-2021COVID-19 Vaccine Pfizer - Documentation Purposes OnlyChristina Jarvis Other [address] [place], [place] [id number] trivalent influenza vaccine, adjuvanted, preservative [facility]09-17-2020influenza, seasonal, injectableDavid Girvin Other [address] [place], [place] 3887810-09-2019influenza, seasonal, injectableDavid Girvin Other [address] [place], [place] 3887810-09-2019influenza, high dose [facility] influenza, high dose seasonal, [facility]17-2018influenza, seasonal, injectableDavid Girvin Other [address] [place], [place] 3887810-13-2017influenza, high dose seasonal, [facility]11-07-2016 influenza, seasonal, injectableDavid Girvin Other [address] [place], [place] 3887811-04-2016 pneumococcal conjugate vaccine, 13 valentDavid Girvin Other [address] [place], [place] 3887810-20-2015 pneumococcal polysaccharide vaccine, 23 valentDavid Girvin Other [address] [place], [place] 3887810-03-2014zoster vaccine, liveDavid Girvin Other [address] [place] [address] Payers DatePayer CategoryPayerPolicy [id number]-ner [id number] [id number] Health [id number] [id number] .[id number] [id number] 2.[id number] [id number] [id number] 2.0.1.826771.3.579.2.531 Social History DateTypeDetailFacilityUnknown if ever smokedCorona eX[facility] Other Sex Assigned At BirthSex Assigned At easyfolioCorona eX[employer] Other Start: 07-75-7039Awf [facility] 02-07-2023 End: 62-61-7644Hvqeznd smoking status NHISNever smoked tobacco (finding) [facility] 09-49-6115LtpNluavm (finding)[facility] Clinical Notes 02-12-2021 to 05-18-2023 Note Date & GpcqBafuSjtbkree68-66-6395 Evaluation note* Encounter Date Diagnosis Assessment Notes Treatment Notes Treatment Clinical Notes Apr, Gastritis (ICD-10 - K29.70) [facility] Other [id number] Evaluation note* Encounter Date Diagnosis Assessment Notes Treatment Notes Treatment Clinical Notes Jan, Hypertension (ICD-10 - I10) Jan,Hyperlipidemia (ICD-10 - E78.5) Jan,Hyperglycemia (ICD-10 - R73.9) Jan,Weight loss (ICD-10 - R63.4) Jan,Hematuria (ICD-10 - R31.9) Jan,Other penitentiary (current) drug therapy (ICD-10 - Z79.899) [facility] Other 03-18-2022 Evaluation note* Encounter Date Diagnosis Assessment Notes Treatment Notes Treatment Clinical Notes Dec, Hyperlipidemia (ICD-10 - E78.5) Discussed cholesterol results with patient today. Total is 161. HDL is 41. LDL is 84. Triglyceridesare 178. I encouraged her to watch her intake of carbs and sugars, continue with weight loss. Stay active as tolerated. Continue with the same dose of Rosuvastatin. Dec,Hypertension (ICD-10 - I10) For now she is to continue with the same dose of Losartan. Dec,Hyperglycemia (ICD-10 - R73.9) Discussed blood sugar results with her today. Glucose is 104. HgA1C is 5.7 which is at the higher end of normal. She is encouraged to watch her intake of carbs and sugars. Stay active. She admits that she cannot give up cookies. She has trouble exercising, she was doing well riding her stationary bike at home until her bike began to hurt when she was pushing the pedals so now she can only ride her bike every other day. Dec,Hematuria (ICD-10 - R31.9) She did see Dr. Acosta last year (2020) and had a cystoscopy done, a CT scan was done (02-03-21) and a FISH/CYTO was negative. She only needs to return to see him on an as needed basis. I did explain to her that her urine did show blood in it when checked, but she voices that Dr. Acosta did advise herthat this will be something that is normal for her. Dec,Foot pain (ICD-10 - M79.673) She voices that when she would ride her stationary bike she found that her feet would hurt, but they would hurt on the bottom but mostly when she would get up in the morning. I did recommend that shesoak her feet in a bucket of ice water after she exercises to help calm this down. She can also change her foot wear to something with a firm base for when she rides the bike, or turn the pedal over t o see if this resolves the foot pain. We discussed that the foot pain could be plantar fasciitis. She voices that she does not walk correctly and this throws her back off. She will see if she can make some changes to improve her foot pain. 18 Dec,2Depression (ICD-10 - F32.9) She is still taking the Venlafaxine daily as directed and continues to follow with Dr. Arnett. Dec,Weight loss (ICD-10 - R63.4) Her TSH is 2.16 which is normal. 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 Thornton. I did recommend that she get the Shingrix vaccine series. She can obtain this at her local pharmacy. A prescription was provided. [facility] Other [id number] Note [id number]:127[facility] 02-12-2021 NoteCystoscopy ? Voiding after the procedure: there may be some pain, burning, urgency, frequency and blood tingedurine following the procedure. These symptoms usually resolve within 2-5 days. Drink the amount of fluid it takes to keep the urine pink to yellow or clear in color. Drinking enough water and fluids will help to ease any discomfort after your procedure. ? If you are having problems that seem out of the ordinary, please call. ? If unable to contact your physician and you feel it is an emergency, go to the nearest emergency room or call 911 ? Diet ? you may resume your normal diet. ? Activity ? you may resume your normal activities ? Call if you have a fever over 100 degrees.[facility] Evaluation noteNo InformationNortHaven Behavioral Hospital of [facility] Onit Other Evaluation noteNo assessment information available [facility] Work Phone: Evaluation note* Diagnosis Onset Date Resolution Status Depression acuteGastritisacuteHematuriaacuteHyperglycemiaacuteHyperlipidemiaacute Hypertensionacute [facility] Work Phone: Evaluation note* Diagnosis Onset Date Resolution Status Admit Date Balance problem acuteAugust 2024 9:14amDepressionacuteAugust 2024 9:14amGastritis acuteAugust 2024 9:14amHematuriaacuteAugust 2024 9:14amHyperglycemia acuteAugust 2024 9:14amHyperlipidemiaacuteAugust 2024 9:14am HypertensionacuteAugust 2024 9:14amIntentional weight lossacuteAugust 2024 9:14am [facility] Work Phone: History general Narrative - Reported* Type Description Date Medical History Last Pap 2010; Dr. Gonsalez Medical HistoryLast Mammogram ; [facility] (normal)Medical History No history of Stress Test, Colonoscopy or CT of the Abdomen or PelvisMedical HistoryLast EKG around age 19 before surgeryMedical HistoryNo history of FracturesMedical HistoryHistory of Chicken Pox as a ChildMedical History [facility] HistoryFlu Vaccine and Pneumonia Vaccine 2014Medical HistoryPt has O positive bloodSurgical HistoryT & A as a childSurgical Historybilateral breast biopsies; all were benignSurgical HistoryLeft knee replacement, Dr. RandallZdhybyhb61-9-1328Uhzdlbnz Historyrt knee replacement Dr Randall02/12/16urgical HistoryMRI of back - Dr HolbrookTkfmeun9680 Surgical HistoryXR of hip - Dr RandallWqlsfghl4041Vhpagzim HistoryPain clinic - injection left ean2764Gimaurqe Historymammogram -08/2016Surgical Historyhip inj Dr Randall/2017Surgical Historymammogram01/2018Surgical HistoryCT with contrast 08/24/18urgical Historyleft hip wzjnukyvoff54/5/2018Surgical Historyfemur fracture oqrqdmm37/8/2018Surgical HistoryCystoscopy - Dr. Acosta02/12/21 Hospitalization Historysee above [facility] Other History general Narrative - Reported* Type Description Date Medical History Last Pap 2010; Dr. Gonsalez Medical HistoryLast Mammogram ; [facility] (normal)Medical History No history of Stress Test, Colonoscopy or CT of the Abdomen or PelvisMedical HistoryLast EKG around age 19 before surgeryMedical HistoryNo history of FracturesMedical HistoryHistory of Chicken Pox as a ChildMedical History [facility]amm[facility] 08-15-13[facility] HistoryFlu Vaccine and Pneumonia Vaccine 2014Medical HistoryPt has O positive bloodSurgical HistoryT & A as a childSurgical Historybilateral breast biopsies; all were benignSurgical HistoryLeft knee replacement, Dr. RandallFscmcbub32-2-7266Ipopeobv Historyrt knee replacement Dr Randall02/12/16urgical HistoryMRI of back - Dr HolbrookGmsfbsy1257 Surgical HistoryXR of hip - Dr RandallZlvylntk1224Yrmwllxr HistoryPain clinic - injection left tef2066Mvqmzeiz Historymammogram -08/2016Surgical Historyhip inj Dr Randall10/2017Surgical Historymammogram01/2018Surgical HistoryCT with contrast 08/24/18urgical Historyleft hip ojawlzmdrwf34/5/2018Surgical Historyfemur fracture /8/2018Surgical HistoryCystoscopy - Dr. Acosta02/12/21Surgical HistoryCatartact surgeryurgical HistoryColonoscopy (colon polyp) & EGD Dr. May / see report/ repeat colonoscopy 5 years 00868-3-64Txtjzutnqdlpopf Historysee above [facility] Other Reason for referral (narrative)* Reason appt referral for colonoscopy/positive FIT Diagnosis 1 Positive occult stoo l blood test (R19.5) Referral Organization [facility] Referring Provider First Name Christina Referring Provider Last Name Jamila Referring Provider Specialty Family Prac alban Referred Organization [facility] Referred Provider Polo Lyn Referred Address [address],[address] Referred Provider Specialty Gastroentero logy Referral Priority Routine General Notes Mary Ann Maruer 09/29/2022 03:45:56 PM > referral sent p2p. pt understands that she will be contacted to schedule this appt. [facility] Other Reason for referral (narrative)No reason for referral information availableWright-Pat[facility] Medical Center Work Phone: Summary Purpose Family History No Family History Records Found Relationship Condition Age at Onset Recorded Date/T yrn father Unknown grandparentDeceasedUnknownCerebrovascular accidentUnknowngrandparentHeart diseaseUnknownDeceasedUnknownMalignant neoplasmUnknownmotherDeceasedUnknown Diabetes mellitusUnknown Relationship Condition Age at Onset Recorded Date/T yrn father Unknown Heart diseaseUnknowngrandparentDeceasedUnknownCerebrovascular accidentUnknown grandparentHeart diseaseUnknownDeceasedUnknownMalignant neoplasmUnknownmother DeceasedUnknownDiabetes mellitusUnknown Advance Directives No Advanced Directives Records Found Advance Directive Response Recorded Date/ Time Advance Directives No January 31 9:27am Advance Directive Response Recorded Date/ Time Advance Directives No January 31 023 8:27am Hospital Course Note MR#: [id number] [facility] Pt. Name: Kayleigh Brown Admitted: 10/01/2018 Discharged: 10/11/2018 Date of : 1950 Physician: Pete Garcia M.D. DISCHARGE SUMMARY PRIMARY DIAGNOSIS: Left total hip arthroplasty, periprosthetic femur fracture. SECONDARY DIAGNOSIS: Hypertension. SUMMARY OF HOSPITAL COURSE: The patient was admitted as a transfer from outside hospital after sustaining a fall from standing 2 days following total hip arthroplasty. X-rays demonstrated periprosthetic fracture of the left femur with subsidence of the femoral stem. She was therefore seen on the inpatient unit and surgery was advised. After preoperative clearance was obtained from the internal medicine service, the patient was taken for revision of her femoral components under general anesthesia. Cerclage wires were used to provide additional fixation. The patient was transferred to the PACU postoperatively in stable condition. She was to be nonweightbearing on the left lower ex (more content not included)... Chief Complaint and Reason for Visit Chief Complaint Z79.899 E78.5 R73.9 R63.4 R31.9 Chief Complaint Amb Documentation E78.5 R73.9 Z79.899 R63.5 R31.9 Chief Complaint Amb Documentation E78.5 R73.9 Z79.899 R63.5 R31.9 review labsReason for VisitDepression Gastritis Hematuria Hyperglycemia Hyperlipidemia Hypertension Chief Complaint Admit Date Stitches removal August 31, 2024 1 1:40am Chief Complaint Admit Date r73.9 r31.9 e78.5 z79.899 r63.4 May 242024 8:51am Chief Complaint Admit Date r73.9 r31.9 e78.5 z79.899 r63.4 May 242024 8:51am review labs June 12, 2025 9: 14am Reason for Visit Admit Date Balance problem June 12, 2025 9: 14am Depression June 12, 2025 9: 14am Gastritis June 12, 2025 9: 14am Hematuria June 12, 2025 9: 14am Hyperglycemia June 12, 2025 9: 14am Hyperlipidemia June 12, 2025 9: 14am Hypertension June 12, 2025 9: 14am Intentional weight loss June 12 9:14am Additional Source Comments INFORMATION SOURCE (unrecogn ized section and content) DATE CREATED AUTHOR 01/10/2019 [facility] DATE CREATED AUTHOR AUTHOR'S ORGANIZ ATION 03/16/2021 [facility] DATE CREATED AUTHOR AUTHOR'S ORGANIZ ATION 12/31/2022 [facility] DATE CREATED AUTHOR AUTHOR'S ORGANIZ ATION 08/24/2025 [facility] REASON FOR VISIT (unrecogniz ed section and content) review labsClinicalClinicall ab orderOmeprazole Care Teams (unrecognized sec tion and content) Team Status: Active Member Role Status Dates Christina Jarvis DO Primary Care Provider Active Team Status: Inactive Member Role Status Dates Christina Jarvis DO Primary Care Provider Active S tart: August 31, 2024 End: August 31Rin Green ProviderActiveStart: August 31, 2024 End: August 31, 2024 Team Status: Active Member Role Status Dates Christina Jarvis DO Primary Care Provider Active S tart: March 08, 2024 Maureen Longoria ProviderActiveStart: March 08, 2024 Team Status: Inactive Member Role Status Dates Christina Jarvis DO Primary Care Provide r, Attending Provider Active Start: May 24, 2024 End: May 24, 2024 Team Status: Inactive Member Role Status Dates Christina Jarvis DO Primary Care Provider, Attending Pro vider Active Team Status: Inactive Member Role Status Dates Christina Jarvis DO Primary Care Provide r, Attending Provider Active Start: May 28, 2024 End: May 28, 2024 Team Status: Inactive Member Role Status Dates Christina Jarvis DO Primary Care Provider Active S tart: June 10, 2025 End: June 10, 2025Dajorge akaron Jarvis DOAttending ProviderActiveStart: June 10, 2025 End: June 10, 2025 Team Status: Inactive Member Role Status Romie Jarvis DO Primary Care Provider Active S tart: June 12, 2025 End: June 12, 2025Daifeanyi Jarvis DOAttending ProviderActiveStart: June 12, 2025 End: June 12, 2025 Goals (unrecognized section and content) Goals may be documented in a n alternate section FOR RECORDS PERTAINING TO PATIENTS WHO ARE OR HAVE BEEN ENROLLED IN A CHEMICAL DEPENDENCY/SUBSTANCEABUSE PROGRAM, SOME INFORMATION MAY BE OMITTED. This clinical summary was aggregated from multiple sources. Caution should be exercised in using it in the provision of clinical care. This summary normalizes information from multiple sources, and as a consequence, information in this document may materially change the coding, format and clinical context of patient data. In addition, data may be omitted in some cases. CLINICAL DECISIONS SHOULD BE BASED ON THE PRIMARY CLINICAL RECORDS. [employer] provides no warranty or guarantee of the accuracy or completeness of information in this document.
--- OUTSIDE RECORDS SUMMARY | 2025-08-25 16:31 | XMS_ITS | Clinical Summary ---
Author Organization [email or web address] s tem Address [facility] [place] [address] [place] [address] Care Team Providers Care Director Packaging Name Role Phone Roberto Marino Guero AVITIA Primary Care Provider [phone] Allergies No known active allergies Medications MedicationSigDispense QuantityRefillsLast FilledStart DateEnd DateStatus sod sulf-pot chloride-mag sulf 1.479-0.188- 0.225 gram tablet See instructional sheet given by office. Patient was given a SUTAB coupon voucher to use, this is not to be ran through patients insurance. 24 tablet 12/01/2022ctive busPIRone (BUSPAR) 10 mg tablet Take 1 tablet (10 mg total) by mouth in the morning and 1 tablet (10 mg total) before bedtime.09/27/2022ctive cycloSPORINE (RESTASIS) 0.05 % ophthalmic emulsion Restasis 0.05 % eye drops in a dropperetteActive losartan (COZAAR) 50 mg tablet losartan 50 mg tabletActive rosuvastatin (CRESTOR) 5 mg tablet rosuvastatin 5 mg tabletActive venlafaxine XR (EFFEXOR-XR) 150 mg 24 hr capsule venlafaxine ER 150 mg capsule,extended release 24 hrActive sod sulf-pot chloride-mag sulf (SUTAB) 1.479-0.188- 0.225 gram tablet Patient is to use the instructions provided by office 24 tablet 12/01/2022ctive omeprazole (PriLOSEC) 40 mg capsule Take 1 capsule (40 mg total) by mouth in the morning. 30 capsule ctive Active Problems No known active problems Family History Medical HistoryRelationNameCommentsNo Known ProblemsFatherCancerMotherRelation NameStatusCommentsFatherDeceasedMotherDeceased Social History Tobacco UseTypesPacks/DayYears UsedDateSmoking Tobacco: NeverSmokeless Tobacco: Never Tobacco Cessation:Counseling Given: Not Answered Alcohol UseStandard Drinks/WeekCommentsNot Currently0 (1 standard drink = 0.6 oz pure alcohol)ChildcareAnswerDate FodvjadoEewrieigkFwvozbj42/12/2019Employment AnswerDate MdafbdgdIfabyydnvqYrwpbmp73/12/2019CommentsUnknownSex and Gender InformationValueDate RecordedSex Assigned at BirthNot on fileLegal Sex Irgdwo4108/26/2015 11:15 AM ESTGender IdentityNot on fileSexual OrientationNot on file Last Filed Vital Signs Vital SignReadingTime TakenCommentsBlood Pressure--Pulse--Plevqdccfvb91.9 ??C (96.6 ??F)12/01/2022 8:28 AM ESTRespiratory Rate--Oxygen Saturation--Inhaled Oxygen Concentration--Vqbpuy984.2 kg (221 lb)12/01/2022 8:28 AM JTCJqhklk643.3 cm (5' 9 )12/01/2022 8:28 AM ESTBody Mass Index32.64012/01/2022 8:28 AM EST Plan of Treatment Health MaintenanceDue DateLast DoneCommentsDepression Meyjhvswh62/04/1961Tobacco Uzsnmxutr64/04/1961DTaP,Tdap and Td Vaccines (1 - Tdap)1968Fall Risk Dhhyghfuc57/04/2014Zoster (Shingles) Vaccine (2 of 3)RSV ( or age 60+ yrs) (1 - 1-dose 75+ series)4COVID-19 Vaccine (5 - season)/, 07/24/2021, 12/16/2020, Additional history existsInfluenza Jiapwcb71/, 07/13/2021, 07/10/2020, Additional history exists Medical Devices Not on file Insurance Care Teams Team MemberRelationshipSpecialtyStart DateEnd Date Roberto Marino DO [address] [place] [address] [place] [address] PCP - GeneralFamily Vzrjnxkk92/22/22
--- OUTSIDE RECORDS SUMMARY | 2025-08-25 16:31 | XMS_ITS | Clinical Summary ---
Author Organization [facility] Address [address] [place] [address] Care Team Providers Care Soft Drink Powder Mixer Name Role Phone Unavailable Primary Care Provider Unavailabl e Social History Tobacco UseTypesPacks/DayYears UsedDateSmoking Tobacco: Never Assessed CommentsUnknownSex and Gender InformationValueDate RecordedSex Assigned at Not on fileLegal OubOrehzx63/15/2023 7:30 PM EDTGender IdentityNot on fileSexual OrientationNot on file Last Filed Vital Signs Vital SignReadingTime TakenCommentsBlood Pressure--Pulse--Temperature-- Respiratory Rate--Oxygen Saturation--Inhaled Oxygen Concentration--Nmetlk50.2 kg (212 lb)05/07/2020 12:00 PM QDDWofzxj409.3 cm (5' 9 )05/07/2020 12:00 PM EDTBody Mass Index31.31005/07/2020 12:00 PM EDT Plan of Treatment Not on file
--- NOTE | 2025-08-25 16:46 | ECG_ITS ---
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 Measurements Intervals [place] Rate: 175 P: -84217 [place]: -56231 QRS: 36 QRSD: 86 T: -5 QT: 344 QTc: 438 Interpretive Statements 29026 Atrial fibrillation with rapid ventricular response [address] depression, consistent with subendocardial injury 9150 abnormal ECG Compared to ECG 08/31/2018 11:58:16 ST (T wave) deviation now present Sinus rhythm no longer present Electronically Signed On 08-25-2025 20:20:25 EST by ROSA HASSAN M.D.
--- NOTE | 2025-08-25 16:54 | ED.GENADUL1 ---
HPI HPI - General Adult General Chief complaint: Recheck/Abnormal Lab/Rx Stated complaint: POSS FAST PULSE Time Seen by Provider: 08/25/25 16:46 Source: patient Mode of arrival: walk-in Limitations: no limitations History of Present Illness HPI narrative: cc - fast heart rate Patient states that she was doing some physical therapy type exercises when she suddenly felt her heart rate accelerate. She initially tried to lay down with the Cloth on her forehead in the hopes that it would stop but it did not. Eventually she came to the ED for evaluation. On questioning, she denied any history of SVT, atrial fibrillation or atrial flutter. She denies any cardiac history. No prior MO or procedures regarding her heart. She does take medication for her cholesterol and for high blood pressure. At this time she denies any chest pain, shortness of breath or palpitations/fluttering. She denies any nausea, vomiting or abdominal pain. No back pain. No lightheadedness or dizziness. No headache or blurred vision. Related Data Home Medications ?Medication ?Instructions ?Recorded ?Confirmed buspirone 15 mg tablet 15 mg PO Q12H 08/25/24 08/25/24 losartan 50 mg tablet 50 mg PO DAILY 08/25/24 08/25/24 omeprazole 40 mg capsule,delayed 40 mg PO DAILY 08/25/24 08/25/24 release rosuvastatin 5 mg tablet 5 mg PO Q48H 08/25/24 08/25/24 venlafaxine 150 mg 150 mg PO DAILY 08/25/24 08/25/24 capsule,extended release 24 hr venlafaxine 75 mg capsule,extended 75 mg PO DAILY 08/25/24 08/25/24 release 24 hr Allergies Allergy/AdvReac Type Severity Reaction Status Date / Time No Known Drug Allergies Allergy Verified 08/25/25 16:33 PFSH PFSH Social History Little interest or pleasure in doing things: not at all Feeling down, depressed, or hopeless: not at all Exam Narrative Exam Narrative: Nurses notes and vital signs reviewed and patient is not hypoxic. afebrile General: Well-appearing and in no apparent distress. Skin: Warm, dry, no pallor noted. Eye: Pupils are equal, round and EOMI. No scleral icterus. Ears, Nose, Mouth, and Throat: Oral mucosa is moist Cardiovascular: Variable tachycardia. Respiratory: No accessory muscle use or respiratory distress. Lungs are clear to auscultation, no wheezing, rales or rhonchi Musculoskeletal: normal ROM, no calf or popliteal tenderness, no lower extremity edema/swelling GI: Abdomen is soft, non-distended. Normal bowel sounds. No tenderness to palpation. No rebound, guarding, or rigidity noted. Neurological: A&O x4. No cranial nerve dysfunction observed. No truncal ataxia. Moves all extremities. Sensation intact. Psychiatric: Cooperative and interactive. Normal mood and affect. Constitutional Vital Signs, click to edit/add: Last Vital Signs Pulse 101 H 08/25/25 18:00 Resp 20 08/25/25 18:00 BP 109/59 08/25/25 18:00 Pulse Ox 99 08/25/25 18:00 O2 Del Method Room Air 08/25/25 16:33 Course Vital Signs Vital signs: Vital Signs Pulse Rate 166 H 08/25/25 16:33 Respiratory Rate 16 08/25/25 16:33 Blood Pressure 111/69 08/25/25 16:33 Pulse Oximetry 92 L 08/25/25 16:33 Oxygen Delivery Method Room Air 08/25/25 16:33 Pulse Rate 101 H 08/25/25 18:00 Respiratory Rate 20 08/25/25 18:00 Blood Pressure 109/59 08/25/25 18:00 Pulse Oximetry 99 08/25/25 18:00 Oxygen Delivery Method Room Air 08/25/25 16:33 Medical Decision Making [facility] Narrative Medical decision making narrative: Patient presents with new onset rapid atrial fibrillation. No prior cardiac history. She does take an LEXA inhibitor for blood pressure control and a statin for cholesterol. Patient was placed on hall monitor and EKG obtained. Blood drawn and sent for evaluation. Patient was ordered to receive a 10 mg dose of Cardizem IV. Her HR decreased from 175bpm to 118-122bpm but then melvina back to 144+ bpm. Pt was ordered to receive an additional dose of cardizem - 15mg for second dose. Her HR improved but she remained in Afib. She was ordered to receive 5mg/hr Cardizem infusion. She was given Lovenox 1mg/kg. Portable chest x-ray ordered to be obtained. Blood testing was notable for elevated troponin at 285. BNP is normal. Magnesium is normal. CBC and BMP are also normal. Calcium is minimally elevated at 10.3. Glucose is slightly elevated at 148. Patient's heart rate increased up to the 120-130 range so she was ordered to receive another 20 mg of Cardizem IV this is in addition to the 5 mg/h Cardizem drip. After 3rd cardizem bolus, the patient's HR is now hovering around 100bpm. Case discussed with Dr Rosales, including elevated troponin to 285, normal BNP, unremarkable CXR. He agreed to admit the patient to the hospitalist service at [facility] - she will go to stepdown. We just need to sure that her 2nd troponin isn't markedly elevated. Dr Rosales came to the ED to meet with and examine the patient. The patient is agreeable to admission. Care signed out to Dr Key at 7pm shift change with 2nd troponin pending. Medical Records Medical records reviewed: Yes I reviewed the patient's medical records Lab Data Lab results reviewed: Yes I reviewed the patient's lab results Labs: Lab Results 08/25/25 Range/Units 16:50 WBC 7.1 (4.0-11.0) 10^3/uL RBC 4.63 (4.20-5.40) 10^6/uL Hgb 13.6 (12.0-16.0) g/dL Hct 42.7 (36.0-48.0) % MCV 92.2 (81.0-99.0) fL MCH 29.4 (26.7-34.0) pg MCHC 31.9 (29.9-35.2) g/dL RDW 14.6 (11.0-15.0) % Plt Count 337 (150-450) 10^3/uL MPV 9.4 L (9.5-13.5) fL Neut % (Auto) 71.1 (43.0-75.0) % Lymph % (Auto) 18.0 L (20.5-60.0) % [place]igo % (Auto) 8.8 (1.7-12.0) % Eos % (Auto) 1.4 (0.9-7.0) % Baso % (Auto) 0.4 (0.2-2.0) % Neut # (Auto) 5.1 (1.4-6.5) 10^3/uL Lymph # (Auto) 1.3 (1.2-3.8) 10^3/uL [place]igo # (Auto) 0.6 (0.3-0.8) 10^3/uL Eos # (Auto) 0.1 (0.0-0.7) 10^3/uL Baso # (Auto) 0.0 (0.0-0.1) 10^3/uL Abs Immat Gran (auto) 0.02 (0.00-0.03) 10^3/uL Imm/Tot Granulo (auto) 0.3 (0.0-0.5) % Sodium 137 (136-145) mmol/L Potassium 4.5 (3.5-5.1) mmol/L Chloride 102 (98-107) mmol/L Carbon Dioxide 25.4 (21.0-32.0) mmol/L Anion Gap 14.1 BUN 14.0 (7.0-18.0) mg/dL Creatinine 0.94 (0.55-1.02) mg/dL Est GFR ( Amer) >60 (>=60 mL/min/1.73m^2) Est GFR (Non-Af Amer) 58 L (>=60 mL/min/1.73m^2) BUN/Creatinine Ratio 14.9 Glucose 148 H (74-106) mg/dL Calcium 10.3 H (8.5-10.1) mg/dL Magnesium 1.8 (1.8-2.4) mg/dL Troponin I High Sens 285.0 H* (4.0-51.3) pg/mL NT-Pro-B Natriuret Pep 1141.0 (<=1800.0) pg/mL Imaging Data Chest x-ray: Attestation: I have reviewed the pertinent imaging results. Radiologist's impression: ITS Impressions Chest X-Ray 08/25/25 17:44 IMPRESSION: Mild CHF/edema. Impression dictated by: Chance Manrique M.D. 08/25/2025 6:25 PM Dictation Location: [place] [address] Electronically authenticated by: [id number] Y Date: 08/25/2025 18:25 ECG Data Attestation: I personally reviewed and interpreted this ECG as follows: Interpretation: EKG interpretation:Emergency Department physician interpretation.rapid atrial fibrillation at 175bpm.inferolateral ST depression noted. No prior EKG for comparison. Discharge Plan Discharge Patient Disposition: Still a Patient
[2025-08-25] MEDS: 0.9 % SODIUM CHLORIDE 1,000 ML 999 ML IV (16:57)
[2025-08-25] MEDS: DILTIAZEM HCL 25 MG/5 ML VIAL 10 MG IV (16:58)
[2025-08-25 17:00] LABS: Hematocrit 42.7 % (36.0-48.0); Hemoglobin 13.6 g/dL (12.0-16.0); Immature Granulocytes Abs Auto 0.02 10^3/uL (0.00-0.03); Immature Granulocytes Pct Auto 0.3 % (0.0-0.5); Lymphocytes Absolute Auto 1.3 10^3/uL (1.2-3.8); Mean Corpuscular HGB Conc 31.9 g/dL (29.9-35.2); Mean Corpuscular Hemoglobin 29.4 pg (26.7-34.0); Mean Corpuscular Volume 92.2 fL (81.0-99.0); Platelet Count 337 10^3/uL (150-450); Red Blood Count 4.63 10^6/uL (4.20-5.40); White Blood Count 7.1 10^3/uL (4.0-11.0)
[2025-08-25] MEDS: DILTIAZEM HCL 25 MG/5 ML VIAL 15 MG IV (17:15)
--- NOTE | 2025-08-25 17:18 | ECG_ITS ---
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 Measurements Intervals [place] Rate: 116 P: -85598 CT: -91045 QRS: 30 QRSD: 86 T: 13 QT: 362 QTc: 431 Interpretive Statements 19655 Atrial fibrillation with rapid ventricular response [address] depression, probably digitalis effect 9150 abnormal ECG Compared to ECG 08/25/2025 16:40:17 No significant changes Electronically Signed On 08-25-2025 20:20:44 EST by ROSA HASSAN M.D.
[2025-08-25 17:20] LABS: Anion Gap 14.1; Blood Urea Nitrogen 14.0 mg/dL (7.0-18.0); Calcium 10.3 mg/dL (8.5-10.1); Carbon Dioxide 25.4 mmol/L (21.0-32.0); Chloride 102 mmol/L (98-107); Estimated GFR (African America >60 (>=60 mL/min/1.73m^2); Estimated GFR (Non-African Ame 58 (>=60 mL/min/1.73m^2); Glucose 148 mg/dL (74-106); Magnesium 1.8 mg/dL (1.8-2.4); NT Pro B Type Natriuretic Pept 1141.0 pg/mL (<=1800.0); Potassium 4.5 mmol/L (3.5-5.1); Sodium 137 mmol/L (136-145)
[2025-08-25] MEDS: ENOXAPARIN SODIUM 100 MG/ML SYRINGE 90 MG SUBQ (17:32)
[2025-08-25] MEDS: DILTIAZEM HCL 25 MG/5 ML VIAL 20 MG IV (17:44)
--- NOTE | 2025-08-25 17:44 | XR_ITS ---
The [address] [address] Patient Name: JANELLE BROWN MRN: [id number] date: 1950 Sex: F Assigned Patient Location: ED.MAIN Current Patient Location: ED.MAIN Accession/Order Number: [id number] Exam Date: 08/25/2025 17:54 Report Date: 08/25/2025 18:25 At the request of: ALEK AVELAR Procedure: XR chest 1V PA CHEST: CLINICAL HISTORY: rapid afib COMPARISON: 09/30/2018 FINDINGS: mildly enlarged cardiomediastinal silhouette. Mild perihilar pulmonary vascular congestion and edema. No significant effusion or airspace disease identified. No pneumothorax XR/XR chest 1V IMPRESSION: Mild CHF/edema. Impression dictated by: Chance Manrique M.D. 08/25/2025 6:25 PM Dictation Location: [place] [address] Electronically authenticated by: [id number] Y Date: 08/25/2025 18:25
--- NOTE | 2025-08-25 19:11 | PM.HP ---
HPI H&P: HPI History of Present Illness Chief complaint: New A-Fib with RVR. Narrative: This is a 75-year-old woman who prior self to the emergency room after feeling her heart suddenly beat very fast and irregularly today. In the ER she was found to have atrial fibrillation with rapid ventricular response. This is a new diagnosis for the patient. In the ER her heart rate and tachycardia from the rapid ventricular response from the atrial fibrillation was technically challenging to control. She had multiple boluses of IV Cardizem without any effect. She remained tachycardic. They started a Cardizem infusion, but she had some low blood pressures. Gradually during her stay the rate of the Cardizem infusion was increased. The patient was at home doing some gentle balance exercises on her own, as she has been directed by physical therapy. She did suddenly feel her heart beating fast. She checked her pulse and found that that was beating fast. During this time she did not have any chest pain or pressure or tightness. She did not have any nausea. She did not have any diaphoresis. She has not had any lightheadedness or sensation that that she might pass out, despite some mildly low blood pressures in the emergency room. She tried to lay down on the floor with a cool washcloth on her head but was not feeling any improvement so after about an hour she came to the ER. She has no history of atrial fibrillation before. She has never had any cardiac issue before. Her 20 years ago. Per Kayleigh's description he must of had nonischemic cardiomyopathy and needed an AICD per her recollection. His outside operator was Dr. Richar Brooke out of the [facility]. Kayleigh says that her was scared to that he would have a major cardiac emergency but he wound up passing away from sepsis due to diverticulitis. Her father had hypertension. Her mother had an unspecified heart condition and the patient thinks it might have been atrial fibrillation... but her mother just did not really talk about her medical issues. She has no siblings. 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 She has had bilateral knee replacements and then a left hip replacement where the hardware slipped and there was some type of additional bone fracture, possibly of the proximal femur, and she had to have surgery redone at the [facility]. She has been working on rehabbing herself ever since over the last 5 years. She does not drink any alcohol. She never smoked. She remains physically active in her home. She can go up and down a flight of steps at home and do light household activities such as laundry and cleaning. The patient ate a small breakfast and a small lunch today. She does admit that she thinks that she might be dehydrated. She has not yet had dinner, due to coming to the ER. Review of Systems ROS Narrative A 10 point review of systems is negative except as mention above in the history present illness. [facility] Medical History (Updated 08/25/25 @ 19:16 by BLAS ALMARAZ) History of depression ?Z86.59 - Personal history of other mental and behavioral disorders (ICD-10) History of hyperlipidemia ?Z86.39 - Personal history of other endocrine, nutritional and metabolic disease (ICD-10) History of gastroesophageal reflux (GERD) ?Z87.19 - Personal history of other diseases of the digestive system (ICD-10) History of hypertension ?Z86.79 - Personal history of other diseases of the circulatory system (ICD-10) Surgical History (Updated 08/25/25 @ 19:16 by BLAS ALMARAZ) History of left hip replacement ?Z96.642 - Presence of left artificial hip joint (ICD-10) History of bilateral knee replacement ?Z96.653 - Presence of artificial knee joint, bilateral (ICD-10) Family History (Updated 08/25/25 @ 19:16 by BLAS ALMARAZ) Other Family history of hypertension Social History Little interest or pleasure in doing things: not at all Feeling down, depressed, or hopeless: not at all Meds Home Medications and Allergies Home Medications ?Medication ?Instructions ?Recorded ?Confirmed ?Type buspirone 15 mg tablet 15 mg PO Q12H 08/25/24 08/25/24 History losartan 50 mg tablet 50 mg PO DAILY 08/25/24 08/25/24 History omeprazole 40 mg capsule,delayed 40 mg PO DAILY 08/25/24 08/25/24 History release rosuvastatin 5 mg tablet 5 mg PO Q48H 08/25/24 08/25/24 History venlafaxine 150 mg 150 mg PO DAILY 08/25/24 08/25/24 History capsule,extended release 24 hr venlafaxine 75 mg capsule,extended 75 mg PO DAILY 08/25/24 08/25/24 History release 24 hr Allergies Allergy/AdvReac Type Severity Reaction Status Date / Time No Known Drug Allergies Allergy Verified 08/25/25 16:33 Exam Narrative Exam Narrative: Seen in ER bay #5 she is reclining on the cot. Despite Cardizem running at 10 mg an hour her heart rate bounces between 120 to 135 bpm with A-fib with RVR. Neuro: A and O x 3. Excellent fund of knowledge. No neurologic deficits. Looks younger than stated age. Eyes: EOMI. Conjunctiva sclera clear. Skin: Warm and dry well-perfused. No pallor. No diaphoresis. Oropharynx: Mallampati grade 1. Dentition and mucosal membranes are good. Neck: No cervical lymphadenopathy. No thyromegaly. Pulmonary: Clear to auscultation anteriorly. No wheezing. Patient is sat upright without any orthostatic hypotensive symptoms. Lungs are clear to auscultation posteriorly. GI: Abdomen soft, normal bowel sounds to auscultation. Lower extremities: No edema in her ankles bilaterally. Psychiatric: Mood after normal. Cardiac: I do not hear any murmurs. She has irregularly irregular. Atrial fibrillation on the monitor. Despite Cardizem infusion heart rate is still 125 bpm up to 135 bpm at rest. Constitutional Vital Signs, click to edit/add: Last Vital Signs Pulse 101 H 08/25/25 18:00 Resp 20 08/25/25 18:00 BP 109/59 08/25/25 18:00 Pulse Ox 99 08/25/25 18:00 O2 Del Method Room Air 08/25/25 16:33 Results Labs Labs: Short CBC 08/25/25 Range/Units 16:50 WBC 7.1 (4.0-11.0) 10^3/uL Hgb 13.6 (12.0-16.0) g/dL Hct 42.7 (36.0-48.0) % Plt Count 337 (150-450) 10^3/uL BMP 08/25/25 16:50 Sodium 137 Potassium 4.5 Chloride 102 Carbon Dioxide 25.4 BUN 14.0 Creatinine 0.94 Glucose 148 H Calcium 10.3 H Assessment and Plan Assessment and Plan (1) Atrial fibrillation with rapid ventricular response: Plan Assessment: New onset of atrial fibrillation with rapid ventricular response. Technically challenging to get the heart rate under control in the emergency room despite multiple boluses and then Cardizem infusion. Elevated troponin at 285 followed by 251. History of hypertension. No other high risk A-fib conditions such as alcohol use, obstructive sleep apnea, or elva electrolyte disorders. Plan: Inpatient status due to the technically challenging nature of her efforts at rate control for the atrial fibrillation so far. Placement in the stepdown unit with telemetry monitoring. Check troponin again in the morning. Echocardiogram is ordered for the morning, when hopefully her heart rate will be under better control. Will hydrate the patient with 1 L of normal saline IV fluids over the next few hours. Try a one-time dose of 125 mcg of IV digoxin. If heart rate remains elevated on the Cardizem infusion up to 15 mg an hour nurses can use Lopressor 5 mg IV every 4 hours as needed. Consult is placed to the [facility] cardiology group. The ER already started anticoagulation with Lovenox at 1 mg/kg. The patient's [id number] score is at least a 4 with 2 points for her age, 1 point for female status at 1 point for hypertension. If she has atherosclerotic disease she would get 1 more point. This gives her a 4.8% per-year risk of stroke and a 6.7 % per-year risk of stroke, TIA, or thrombotic/embolic phenomenon from the atrial fibrillation so anticoagulation is indicated. Further care for this patient will be provided by my hospitalist colleague, Dr. Celia Bonilla, taking over on Tuesday.
--- NOTE | 2025-08-25 19:15 | ECG_ITS ---
The [facility] Test Date: 2025-08-25 Pat Name: JANELLE BROWN Department: Room: [facility] Gender: Female Tick Eradicator: : 1950 Requested By: [id number] Order Number: [id number] Reading MD: ROSA HASSAN M.D. Measurements Intervals [place] Rate: 111 P: -50234 SC: -37789 QRS: 17 QRSD: 82 T: 7 QT: 342 QTc: 408 Interpretive Statements 18869 Atrial fibrillation with rapid ventricular response [address] depression, probably digitalis effect 5222 Moderate voltage criteria for LVH, may be normal variant 9150 abnormal ECG Compared to ECG 08/25/2025 20:42:37 No significant changes Electronically Signed On 08-26-2025 7:11:03 EST by ROSA HASSAN M.D.
--- OUTSIDE RECORDS SUMMARY | 2025-08-25 20:02 | XMS_ITS | CCD ---
Author Organization [facility] Care Team Providers Care Geographic Information Systems Analyst Name Role Phone BEVERLY GARCIAIL Admitting Unavailable BEVERLY GARCIAIL Attending Unavailable CHRISTINA JARVIS Referring Unavailable CHRISTINA JARVIS Primary Care Unavailable MT Procedure Practitioner Unavailab le PETE GARCIA Surgeon [...] Unavailable DO Christina Jarvis Primary Care Provider [phone] DO Christina Jarvis Attending Provider DO Christina Jarvis Primary Care Provider [phone] DO Christina Jarvis Attending Provider [phone] Christina Jarvis DO Primary Care Provider Christina Jarvis DO Attending Provider Christina Jarvis Attending Unavailable Christina Jarvis Primary Care Unavailable Christina Jarvis Admitting Unavailable Christina Jarvis Admitting Unavailable Christina Jarvis Attending Unavailable Christina Jarvis Primary Care Unavailable Allergies Allergy ClassificationReported Allergen(s)Allergy TypeDate of OnsetReaction(s) Facility (5 sources)Acetaminophen / HYDROcodoneDrug Allergyhives?[facility] Other (10 sources)atorvastatinDrug Nyxracc43-94-6309rav painUc Health (10 sources)ezetimibeDrug Maxukhy24-10-0309tqrl't likeUc Health (6 sources)Acetaminophen; Translations: [acetaminophen]Drug Pyotkao07-39-2349 hives?[facility] (6 sources)HYDROcodone; Translations: [hydrocodone]Drug Hzhcejz86-60-9562dadyx? [facility] (1 source)atorvastatinDrug Zfnccei93-32-1915CeydhwrglUc Health Repository (1 source)ezetimibeDrug Djnjjvi68-04-9393BmwikpaohUc Health Repository Medications Current Medications MedicationDrug Class(es)DatesSig (Normalized)Sig [...] ActiveLifitegrast (Xiidra) 5 % dropperette (2 sources)Start: 51-79-6780Zyhjkdxwlnf (Xiidra) 5 % dropperette Active DROPS OPHTHALMIC May 27, 2024 11:00pmStart: 96-02-8496Ejzcwjmmqvq (Xiidra) 5 % dropperette Active DROPS OPHTHALMIC May 28, 2024 12:00amlosartan potassium 50 mg oral tablet (20 sources)Angiotensin 2 Receptor BlockerStart: 46-51-7149haio 1 tablet by mouth once dailyStart: 06-07-2024 End: 30-55-8799uqml 1 tablet by mouth once dailyLosartan 50 mg tablet Discontinued 0 .ROUTE .COMPLEX May 14, 2025 2:21pm June 12, 2025 9:3 0am TAKE 1 TABLET BY MOUTH EVERY DAYStart: 03-08-2024 End: 86-43-6437gjxv 1 tablet by mouth once dailyLosartan 50 mg tablet Discontinued 50 MG PO Daily March 08, 2024 10:23am June 07, 2024 9:22am Losartan Potassium 50 mg TAKE 1 TABLET DAILY XbcjqiMhxybwtt-Sfi-Hjxf-Fa-Vit K- Lut (Centrum Silver Women) 8 mg iron-400 mcg-50 mcg tablet (4 sources)Start: 67-11-4839wodm 1 tablet by mouth once daily Wxjgumib-Qsw-Pjyy-Fa-Vit K-Lut (Centrum Silver Women) 8 mg iron-400 mcg-50 mcg tablet Active 1 TAB PO Daily May 28, 2024 12:00am Complies with drug therapy Start: 49-04-1840syzi 1 tablet by mouth once dailyStart: 05-08-0179qvnh 1 tablet by mouth once ydfipKduyrolb-Ekz-Mctk-Fa-Vit K-Lut (Centrum Silver Women) 8 mg iron-400 mcg-50 mcg tablet Active 1 TAB PO Daily May 27, 2024 11:00pmStart: 39-81-1070frbo 1 tablet by mouth once jycjwKwzyktho-Tdz-Mdab-Fa-Vit K-Lut (Centrum Silver Women) 8 mg iron-400 mcg-50 mcg tablet Active 1 TAB PO Daily May 28, 2024 12:00amomeprazole 40 mg delayed release oral capsule (20 sources)Proton Pump InhibitorStart: 05-28-2024 End: 82-53-8932Ghnbtqjtsu 40 mg capsule,delayed release(DR/EC) Active 40 MG PO .COMPLEX August 01, 2024 8:13am 40 mg orally TAKE 1 CAPSULE BY MOUTH EVERY DAY 30 MINUTES BEFORE MORNING MEAL; Complies with drug therapyStart: 05-01-2024 End: 97-67-3829Oltcoyaktl 40 mg capsule,delayed release(DR/EC) Discontinued 0 .ROUTE .COMPLEX May 01, 2024 12:00pm May 28, 2024 2:56pm TAKE 1 CAPSULE BY MOUTH EVERY DAY 30 MINUTES BEFORE MORNING MEAL FOR 90 DAYSStart: 02-20-2024 End: 80-42-1213ebha 1 capsule by mouth once daily at mealtimeOmeprazole 40 mg capsule,delayed release(DR/EC) Discontinued 40 MG PO Daily February 20, 2024 3:05pmJuly 2023 12:00pm 30 min prior to a mealStart: 02-20-2024 End: 01-43-9867lpgo 1 capsule by mouth every other day at mealtimeOmeprazole 40 mg capsule,delayed release(DR/EC) Discontinued 40 MG PO .QOD February 20, 2024 12:00amApril 2023 3:05pm 30 min prior to a mealOmeprazole 40 MG 1 capsule 30 min prior to a meal Orally qod Activerosuvastatin calcium 5 mg oral tablet (20 sources)HMG-CoA Reductase InhibitorStart: 60-19-3577jmpo 1 tablet by mouth every other dayStart: 06-06-2024 End: 79-81-3262vvxk 1 tablet by mouth every other dayRosuvastatin 5 mg tablet Discontinued 0 .ROUTE .COMPLEX May 14, 2025 2:21pm June 1259:30am TAKE 1 TABLET BY MOUTH EVERY OTHER DAYStart: 03-08-2024 End: 06-25-3551miqn 1 tablet by mouth every other dayRosuvastatin [...] Zoster Virus Nucleoside Analog DNA Polymerase InhibitorStart: 00-65-0057ojge 1 tablet by mouth every eight hoursValtrex 1 GM 1 tablet Orally tid for 7 days Jan, Bcqjbw34 hr venlafaxine 150 mg extended release oral tablet (20 sources)Serotonin and Norepinephrine Reuptake InhibitorStart: 93-86-4799iqfi 1 capsule by mouth once dailyVenlafaxine 75 mg capsule,extended release 24hr Active 75 MG PO daily June 12, 2025 12:00am Complies with drug therapyStart: 08-31-2024 End: 39-62-7828hpjt 1 capsule by mouth once daily in the morningVenlafaxine 150 mg capsule,extended release 24hr Discontinued 150 MG PO Every morning August 1:00am June 12, 2025 9:22amStart: 05-28-2024 End: 40-71-7492tdel 1 tablet by mouth once dailyVenlafaxine 150 mg tablet extended release 24hr Active 150 MG PO Daily June 12, 2025 9:24am Dr Arnett Complies with drug therapyStart: 05-28-2024 End: 66-90-2811merm 1 capsule by mouth once dailyVenlafaxine 75 mg capsule,extended release 24hr Discontinued 75 MG PO Daily May 28, 2024 12:00am August 31, 2024 12:43pmtake 1 tablet by mouth every twenty-four hours Venlafaxine HCl ER 150 MG 1 tablet with food Orally Once a day Active Completed/Discontinued Medications MedicationDrug Class(es)DatesSig (Normalized)Sig (Original)busPIRone hydrochloride 15 mg oral tablet (17 sources)Start: 05-28-2024 End: 50-60-0118heej 1 tablet by mouth twice daily, then [...] (2 sources)Lymphocyte Function-Associated Antigen-1 AntagonistStart: 05-28-2024 End: 11-55-3427Eeeqmwbynou (Xiidra) 5 % dropperette Discontinued DROPS OPHTHALMIC May 28, 2024 12:00am June 12, 2025 9:21am Problems Active Problems Problem ClassificationProblemDateDocumented DateEpisodic/ChronicComplications of surgical procedures or medical care (3 sources)Periprosthetic fracture around internal prosthetic left hip joint, initial encounter; Translations:[PERIPROSTH FRACTURE AROUND INTERNAL PROSTH L HIP JT, INIT]Onset: 45-86-3102Mjuufzxv mellitus without complication (9 sources)Hyperglycemia, unspecified; Translations: [Hyperglycemia]Onset: 01-08-2022 Resolved: 36-86-6543JuuypahyQtkqfmpr of white blood cells (5 sources)Decreased blood leukocyte number; Translations: [Decreased white blood cell count, unspecified]ChronicDisorders of lipid metabolism (15 sources)Hyperlipidemia; Translations: [Hyperlipidemia, unspecified]Onset: 01-08-2022 Resolved: 07-70-1085TxivcyxLrdlvvkky of lipid metabolism (1 source)Pure hypercholesterolemia, unspecified; Translations: [PURE HYPERCHOLESTEROLEMIA, UNSPECIFIED]Onset: 17-52-3012Otfbyqzbchqkqh and diverticulitis (1 source)Diverticulosis of large intestine without perforation or abscess without bleeding; Translations: [DVRTCLOS LG INT NO PERF/ABSC W/O BL]Onset: 43-90-9857RqkkevyAckhslybu hypertension (15 sources)Essential (primary) hypertension; Translations: [Hypertensive disorder]Onset: 10-01-2018 Resolved: 38-29-2155HmniorgFmddwwfs of lower limb (4 sources)Unspecified fracture of left femur, subsequent encounter for closed fracture with routine healing; Translations: [UNSP FRACTURE OF LEFT FEMUR, SUBS FOR CLOS FX W ROUTN HEAL]Onset: 08-02-1834TswrwjoxWvymbxigj and duodenitis (1 source)Unspecified chronic gastritis without bleeding; Translations: [UNS CHRONIC GASTRITIS W/O BLEEDING]Onset: 35-44-1941AvtnzvgNttaifdeu and duodenitis (8 sources)Gastritis; Translations: [Gastritis, unspecified, without bleeding] EpisodicGastroduodenal ulcer (except hemorrhage) (1 source)Gastric ulcer, unspecified as acute or chronic, without hemorrhage or perforation; Translations: [GASTR ULCR UNS AC/CHRN W/O HEM/PERF]Onset: 52-05-3720XsnotadFlbcjxvyvzrpz symptoms and ill-defined conditions (9 sources)Hematuria, unspecified; Translations: [Blood in urine]Onset: 01-08-2022 Resolved: 40-66-8965AvxliwquWqne disorders (12 sources)Major depressive disorder, single episode, unspecified; Translations: [Depression]Onset: 01-08-2022 Resolved: 20-70-4888VcpaywuPlwf disorders (2 sources)Major depressive disorder, single episode, unspecified; Translations: [Mood disorders]Onset: 30-04-1294Ccjrpmzxvbduua (8 sources)Unilateral primary osteoarthritis, right hip; Translations: [Unilateral primary osteoarthritis, right knee]Onset: 46-49-0520CcohbrdUnzxa aftercare (4 sources)Other penitentiary (current) drug therapy; Translations: [OTH RESIDENTIAL CURRENT DRUG THERAPY]Onset: 01-08-2022 Resolved: 28-18-4139GoxtcthhVqoaa aftercare (2 sources)Removal of sutures done; Translations: [Encounter for removal of sutures]91-77-4624IqlvgcvtHdzbf and unspecified benign neoplasm (1 source)Benign neoplasm of sigmoid colon; Translations: [BENIGN NEOPLASM OF SIGMOID COLON]Onset: 65-04-7022KlztxekuJuzuq and unspecified benign neoplasm (1 source)Benign neoplasm of transverse colon; Translations: [BENIGN NEOPLASM OF TRANSVERSE COLON]Onset: 88-62-8684XyphvupnVyybs and unspecified benign neoplasm (1 source)Polyp of stomach and duodenum; Translations: [POLYP OF STOMACH AND DUODENUM]Onset: 93-80-7976KmkfvwmiWpfra connective tissue disease (2 sources)Presence of left artificial hip joint; Translations: [PRESENCE OF LEFT ARTIFICIAL HIP JOINT]Onset: 22-97-2434XtalrpmKfgpx connective tissue disease (2 sources)Other specified soft tissue disorders; Translations: [OTHER SPECIFIED SOFT TISSUE DISORDERS]Onset: 73-23-0401FegpiablOtorj gastrointestinal disorders (4 sources)Other fecal abnormalities; Translations: [OTHER FECAL ABNORMALITIES] Onset: 82-60-9647GbccqrcdGdibq nervous system disorders (2 sources)Impairment of balance; Translations: [Other abnormalities of gait and mobility]14-90-2855ItwzcbkbQfhoz nervous system disorders (1 source)Other abnormalities of gait and mobility; Translations: [Other abnormalities of gait and mobility]Onset: 22-91-2707RlgckbxpEfllk nutritional; endocrine; and metabolic disorders (1 source)Obesity, unspecified; Translations: [OBESITY UNSPECIFIED]Onset: 13-39-5293RchmmvjXnoss nutritional; endocrine; and metabolic disorders (1 source)Body mass index (BMI) 33.0-33.9, adult; Translations: [BODY MASS INDEX BMI 33.0-33.9 ADULT]Onset: 50-66-0166UekhoyqUwlfz nutritional; endocrine; and metabolic disorders (3 sources)Abnormal weight loss; Translations: [Abnormal weight loss]Onset: 01-08-2022 Resolved: 62-65-3209FtnofxfrUjfua nutritional; endocrine; and metabolic disorders (2 sources)Intentional weight dqkj54-96-4164ThpqdqrpSykxo screening for suspected conditions (not mental disorders or infectious disease) (5 sources)Abnormal findings on diagnostic imaging of breast; Translations: [Other abnormal and inconclusive findings on diagnostic imaging of breast] EpisodicSpondylosis; intervertebral disc disorders; other back problems (1 source)Spondylosis without myelopathy or radiculopathy, lumbar region; Translations: [SPONDYLOSIS W/O MYELOPATHY OR RADICULOPATHY, LUMBAR REGION]Onset: 45-56-6630HkchgcaSobyxrficdmt (1 source)LEFT PERIPROSTHETIC FRACTUREOnset: 03-54-6301Tgqmpieujqwt (1 source)LEFT FEMUR FXOnset: 17-75-1166Xugmcvzhnhky (1 source)ESOPHAGITIS UNSPEC WITHOUT BLEEDING; Translations: [ESOPHAGITIS UNSPEC WITHOUT BLEEDING]Onset: 12-29-2022 Past or Other Problems Problem ClassificationProblemDateDocumented DateEpisodic/ChronicComplication of device; implant or graft (1 source)Fracture of femur following insertion of orthopedic implant, joint prosthesis, or bone plate, left leg; Translations: [FX FEMUR FOL INSRT ORTHO IMPLNT/PROSTH/BONE PLT, LEFT LEG]Onset: 36-94-4123NgnpiqfmQhburfafmq and other anemia (1 source)Anemia, unspecified; Translations: [ANEMIA, UNSPECIFIED]Onset: 29-12-7332RhnnhusyHgqxn and electrolyte disorders (1 source)Hypo-osmolality and hyponatremia; Translations: [HYPO-OSMOLALITY AND HYPONATREMIA]Onset: 51-94-6377OgzeelbySlzqr connective tissue disease (1 source)Pain in unspecified footOnset: 01-08-2022 Resolved: 18-35-6885Dllffpme Results Test NameValueInterpretationReference AbplrYxaoaitoW1C with Estimated Average Gluon 58-34-7054Wsccaro [Mass/Vol]111 mg/dLNormSuburban Community Hospital & Brent[facility] Hospitale [facility] Comment on above:Result Comment: PERFORMED BY: [place] [address] PATHOLOGIST ENCYCLOPEDIA RESEARCH WORKER CHAMP COATES M.D.Performed By: #### CUU, ADDONUAPLUS, A1C WTH eA, CBC, CMP, LIPID, TSH3 #### [address] Lucas StreetAlanine aminotransferase [Enzymatic activity/volume] in Serum or PlasmaOrdered By: Christina Jarvis on 92-08-8802SMC [Catalytic activity/Vol]19 U/LNormal7-52Uc HealthComment on above: Performed By: #### CUU, ADDONUAPLUS, A1C WTH eA, CBC, CMP, LIPID, TSH3 #### [facility] [address] [place] [address] USAAlbumin [Mass/volume] in Serum or Plasma by Bromocresol green (BCG) dye binding methoOrdered By: Christina Jarvis on 32-12-6868Keetazr BCG dye [Mass/Vol]4.2 g/dL3.5-5.7FCleveland Clinic Hillcrest HospitalAlkaline phosphatase [Enzymatic activity/volume] in Serum or PlasmaOrdered By: Christina Jarvis on 12-89-2380SVV [Catalytic activity/Vol]78 U/PSbceij85-580FggstsocpUc HealthComment on above:Performed By: #### CUU, ADDONUAPLUS, A1C WTH eA, CBC, CMP, LIPID, TSH3 #### [facility] [address] [place] [id number] USAAppearance of UrineOrdered By: Christina Jarvis on 06-10-2025 Appearance (U)ClearNormalClearUc HealthComment on above: Order Comment: Name Collection Type:: Clean-Voided MidstreamPerformed By: #### CUU, ADDONUAPLUS, A1C WTH eA, CBC, CMP, LIPID, TSH3 #### [facility] [address] [place] [address] USAAspartate aminotransferase [Enzymatic activity/volume] in Serum or PlasmaOrdered By: Christina Jarvis on 78-49-6170XVZ [Catalytic activity/Vol]21 U/ACkipdu02-41IygztpnlhUc HealthComment on above: Performed By: #### CUU, ADDONUAPLUS, A1C WTH eA, CBC, CMP, LIPID, TSH3 #### [facility] [address] [place] [address] USABacteria [Presence] in Urine by AutomatedOrdered By: Christina Jarvis on 57-59-6169Zblyewcu Auto Ql (U)None seen [HPF]None SeenFirelands Regional Medical CenterBasophils [#/volume] in Blood by Automated countOrdered By: Christina Jarvis on 96-62-0856Bdamvaqxv (Bld) [#/Vol]0.0 10*3/uLNormal0.0-0.2 Uc HealthComment on above:Result Comment: PERFORMED BY: [place] [address] PATHOLOGIST ENCYCLOPEDIA RESEARCH WORKER CHAMP COATES M.D.Performed By: #### CUU, ADDONUAPLUS, A1C WTH eA, CBC, CMP, LIPID, TSH3 #### [facility] [address] [place] [address] USABasophils/100 leukocytes in Blood by Automated count Ordered By: Christina Jarvis on 76-19-9270Nmfzdesoa/100 WBC (Bld)0.8 %Normal. Uc HealthComment on above:Performed By: #### CUU, ADDONUAPLUS, A1C WTH eA, CBC, CMP, LIPID, TSH3 #### [facility] [address] [place] [address] USABilirubin Test strip Ql (U)Ordered By: Christina Jarvis on 21-36-9630Ouyvploiu Ql (U)NegativeNegativeUc Health Bilirubin.total [Mass/volume] in Serum or PlasmaOrdered By: Christina Jarvis on 89-73-2042Vhasuocmm [Mass/Vol]0.5 mg/dLNormal0.3-1.0Uc HealthComment on above:Performed By: #### CUU, ADDONUAPLUS, A1C WTH eA, CBC, CMP, LIPID, TSH3 #### [facility] [address] [place] [address] USABlood estimated average glucose determination by estimation from glycated hemoglobinOrdered By: Christina Jarvis on 56-19-7054Lgkwuwq glucose Estimated from glycated hemoglobin (Bld) [Mass/Vol]111 mg/dLUc HealthCalcium [Mass/volume] in Serum or PlasmaOrdered By: Christina Jarvis on 40-26-2015Dbzzioo [Mass/Vol]9.9 mg/dLNormal8.6-10.3FCleveland Clinic Hillcrest HospitalComment on above:Performed By: #### CUU, ADDONUAPLUS, A1C WTH eA, CBC, CMP, LIPID, TSH3 #### [facility] [address] [place] [address] USACarbon dioxide, total [Moles/volume] in Serum or Plasma Ordered By: Christina Jarvis on 67-57-4720QV5 [Moles/Vol]28.6 mmol/IKzladp85.0-31.0 Uc HealthComment on above:Performed By: #### CUU, ADDONUAPLUS, A1C WTH eA, CBC, CMP, LIPID, TSH3 #### [facility] [address] [place] [id number] USAChloride [Moles/volume] in Serum or PlasmaOrdered By: Christina Jarvis on 92-45-4823Syanaksf [Moles/Vol]103 mmol/JNfryxg45-448IuquqjnmqUc HealthComment on above:Lipemia is present at a level that could interfere with the result.Hemolysis is present at a level that could interfere with the result.Result Comment: Lipemia is present at a level that could interfere with the result. Hemolysis is present at a level that could interfere with the result.Performed By: #### CUU, ADDONUAPLUS, A1C WTH eA, CBC, CMP, LIPID, TSH3 #### [facility] [address] [place] [id number] USACholesterol [Mass/volume] in Serum or PlasmaOrdered By: Christina Jarvis on 70-45-6669Nouxavksgcw [Mass/Vol]158 mg/oTGkubee979-091TrqeqcqqjUc HealthComment on above:Chol less than 200 mg/dl low riskChol 201-239 mg/dl borderline riskChol 240 mg/dl and greater high riskResult Comment: Chol less than 200 mg/dl low risk Chol 201-239 mg/dl borderline risk Chol 240 mg/dl and greater high riskPerformed By: #### CUU, ADDONUAPLUS, A1C WTH eA, CBC, CMP, LIPID, TSH3 #### [facility] [address] [place] [address] USACholesterol in HDL [Mass/volume] in Serum or PlasmaOrdered By: Christina Jarvis on 09-46-8042Wynfwjxwcog in HDL [Mass/Vol]45 mg/qZJnooel99-66 Uc HealthComment on above:HDL CHOL ATP-III CLASSIFICATION Cardiovascular RiskHDL > or equal to 60 mg/dL LOWHDL < 40 mg/dL HIGHResult Comment: HDL CHOL ATP-III CLASSIFICATION Cardiovascular Risk HDL > or equal to 60 mg/dL LOW HDL < 40 mg/dL HIGHPerformed By: #### CUU, ADDONUAPLUS, A1C WTH eA, CBC, CMP, LIPID, TSH3 #### [facility] [address] [place] [address] USACholesterol in LDL Calc [Mass/Vol]Ordered By: Christina Jarvis on 92-42-7759Fczrktjlelj in LDL [Mass/Vol]80 mg/dL0-100Uc HealthComment on above:LDL ATP III CLASSIFICATIONLDL less than 100 mg/dL OptimalLDL 100-129 mg/dL Near or above zudvbrlFWL455-263 mg/dL Borderline highLDL 160-189 mg/dL HighLDL greater than 189 mg/dL Very highCholesterol in VLDL Calc [Mass/Vol]Ordered By: Christina Jarvis on 66-91-3561Wpxokkllwuh in VLDL [Mass/Vol]32 mg/dLUc HealthColor of Urine by AutoOrdered By: Christina Jarvis on 91-23-9775Phktg (U)Light-yellowNormalYellowUc HealthComment on above:Order Comment: Name Collection Type:: Clean-Voided MidstreamPerformed By: #### CUU, ADDONUAPLUS, A1C WTH eA, CBC, CMP, LIPID, TSH3 #### [facility] [address] [place] [address] USAComplete Blood Count Auto Diffon 00-14-4600Xufh Corpuscular HGB Conc33.1 g/qHMfnmkv87.0-35.0The [facility] Physician GroupComment on above:Performed By: #### CUU, ADDONUAPLUS, A1C WTH eA, CBC, CMP, LIPID, TSH3 #### [facility] [address] [place] [address] USANRBC%0.2 /100{WBC}Normal0-0.5The [facility] Comment on above:Performed By: #### CUU, ADDONUAPLUS, A1C WTH eA, CBC, CMP, LIPID, TSH3 #### [place] [address] USAWhite Blood Count4.3 [CFU]/mLNormal3.8-11.6The [facility] Physician GroupComment on above:Performed By: #### CUU, ADDONUAPLUS, A1C WTH eA, CBC, CMP, LIPID, TSH3 #### [place] [address] USAComprehensive Metabolic Panelon 70-31-3156Fxpptgs [Mass/Vol]4.2 g/dLNormal3.5-5.7The [facility] Physician GroupComment on above: Performed By: #### CUU, ADDONUAPLUS, A1C WTH eA, CBC, CMP, LIPID, TSH3 #### [place] [address] USAGFR/1.73 sq M.predicted MDRD (S/P/Bld) [Vol rate/Area] mL/min/{1.73_m2}NormalThe [facility] HospitalComment on above:Performed By: #### CUU, ADDONUAPLUS, A1C WTH eA, CBC, CMP, LIPID, TSH3 #### [place] [address] USACreatinine [Mass/volume] in Serum or PlasmaOrdered By: Christina Jarvis on 77-41-6028Qbnjapgmnu [Mass/Vol]0.82 mg/dLNormal0.60-1.20 Uc HealthComment on above:Performed By: #### CUU, ADDONUAPLUS, A1C WTH eA, CBC, CMP, LIPID, TSH3 #### [place] [id number] USADipstick and Microscopicon 00-20-6302Eeyfxfuo,UrineNone SeenNormalNone SeenThe [facility] Physician GroupComment on above:Order Comment: Name Collection Type:: Clean-Voided MidstreamPerformed By: #### CUU, ADDONUAPLUS, A1C WTH eA, CBC, CMP, LIPID, TSH3 #### [place] [address] USABilirubin,UrineNegativeNormalNegativeAdventhealth Dade City Physician GroupComment on above:Order Comment: Name Collection Type:: Clean- Voided MidstreamPerformed By: #### CUU, ADDONUAPLUS, A1C WTH eA, CBC, CMP, LIPID, TSH3 #### [place] [address] USAGlucose Ql (U)NormalNormalNormalThMadison Memorial Hospital Physician GroupComment on above:Order Comment: Name Collection Type:: Clean-Voided MidstreamPerformed By: #### CUU, ADDONUAPLUS, A1C WTH eA, CBC, CMP, LIPID, TSH3 #### [place] [address] USAHyaline Casts,UrineNoneNormal0-8The [facility] Physician GroupComment on above:Order Comment: Name Collection Type:: Clean-Voided MidstreamPerformed By: #### CUU, ADDONUAPLUS, A1C WTH eA, CBC, CMP, LIPID, TSH3 #### [place] [address] USAMucus,UrineRareNormalThe [facility] Physician GroupComment on above:Order Comment: Name Collection Type:: Clean-Voided MidstreamResult Comment: PERFORMED BY: [place] [address] PATHOLOGIST ENCYCLOPEDIA RESEARCH WORKER CHAMP COATES M.D.Performed By: #### CUU, ADDONUAPLUS, A1C WTH eA, CBC, CMP, LIPID, TSH3 #### [place] [address] USANitrite,UrineNegativeNormalNegativeAdventhealth Dade City Physician GroupComment on above:Order Comment: Name Collection Type:: Clean-Voided MidstreamPerformed By: #### CUU, ADDONUAPLUS, A1C WTH eA, CBC, CMP, LIPID, TSH3 #### [place] [address] USAOccult Blood,Urine1+NormalNegativeThe [facility] Physician GroupComment on above:Order Comment: Name Collection Type:: Clean-Voided MidstreamResult Comment: PERFORMED BY: [place] [address] PATHOLOGIST ENCYCLOPEDIA RESEARCH WORKER CHAMP COATES M.D.Performed By: #### CUU, ADDONUAPLUS, A1C WTH eA, CBC, CMP, LIPID, TSH3 #### [place] [address] USAProtein,UrineNegativeNormalNegativeThe [facility] Physician GroupComment on above:Order Comment: Name Collection Type:: Clean-Voided MidstreamPerformed By: #### CUU, ADDONUAPLUS, A1C WTH eA, CBC, CMP, LIPID, TSH3 #### [place] [address] USARBC,Vdymy9-4Ovzanl8-3Ezk [facility] Physician GroupComment on above:Order Comment: Name Collection Type:: Clean-Voided MidstreamPerformed By: #### CUU, ADDONUAPLUS, A1C WTH eA, CBC, CMP, LIPID, TSH3 #### [place] [address] USASpecificy Townsend,Urine1.464Tbhwpr6.001-1.030The [facility] Physician GroupComment on above:Order Comment: Name Collection Type:: Clean- Voided MidstreamPerformed By: #### CUU, ADDONUAPLUS, A1C WTH eA, CBC, CMP, LIPID, TSH3 #### [place] [address] USASquamous Epithelial Cell,Feihp0-7Heifss1-7Fuh [facility] Physician GroupComment on above:Order Comment: Name Collection Type:: Clean- Voided MidstreamPerformed By: #### CUU, ADDONUAPLUS, A1C WTH eA, CBC, CMP, LIPID, TSH3 #### [facility] [address] [place] [address] USAUrobilinogen,UrineNormalNormalNormalThe [facility] Physician GroupComment on above:Order Comment: Name Collection Type:: Clean- Voided MidstreamPerformed By: #### CUU, ADDONUAPLUS, A1C WTH eA, CBC, CMP, LIPID, TSH3 #### [facility] [address] [place] [address] USAWBC,Yremb9-7Sgxwtw2-2Zuz [facility] Physician GroupComment on above:Order Comment: Name Collection Type:: Clean-Voided MidstreamPerformed By: #### CUU, ADDONUAPLUS, A1C WTH eA, CBC, CMP, LIPID, TSH3 #### [facility] [address] [place] [address] USAEosinophils [#/volume] in Blood by Automated countOrdered By: Christina Jarvis on 24-76-6923Pyqfolumbgx (Bld) [#/Vol]0.1 10*3/uLNormal0.0-0.45 Uc HealthComment on above:Performed By: #### CUU, ADDONUAPLUS, A1C WTH eA, CBC, CMP, LIPID, TSH3 #### [place] [address] USAEosinophils/100 leukocytes in Blood by Automated count Ordered By: Christina Jarvis on 19-70-4595Eypesdkawzm/100 WBC (Bld)3.1 %Normal. Uc HealthComment on above:Performed By: #### CUU, ADDONUAPLUS, A1C WTH eA, CBC, CMP, LIPID, TSH3 #### [facility] [address] [place] [address] USAEpithelial cells.squamous [#/area] in Urine sediment by Automated countOrdered By: Christina Jarvis on 10-43-2364Pfntkyuxit cells.squamous Auto (Urine sed) [#/Area]1-2 [HPF]0-2[facility] Erythrocyte distribution width [Ratio] by Automated countOrdered By: Christina Jarvis on 22-45-0465Jeayaiivmas distribution width (RBC) [Ratio]15.1 %Normal 11.9-15.3FC[facility] Hillcrest HospitalComment on above:Performed By: #### CUU, ADDONUAPLUS, A1C WTH eA, CBC, CMP, LIPID, TSH3 #### [facility] [address] [place] [address] USAErythrocytes [#/area] in Urine sediment by Automated count Ordered By: Christina Jarvis on 28-62-5618KZN Auto (Urine sed) [#/Area]5-9 [HPF]High 0-4FC[facility] Hillcrest HospitalErythrocytes [#/volume] in Blood by Automated countOrdered By: Christina Jarvis on 56-52-3122DRO (Bld) [#/Vol]4.71 10*6/uLNormal3.60-5.00Uc HealthComment on above: Performed By: #### CUU, ADDONUAPLUS, A1C WTH eA, CBC, CMP, LIPID, TSH3 #### [facility] [address] [place] [address] USAGlomerular filtration rate [Volume Rate/Area] in Serum, Plasma or Blood by CreatinineOrdered By: Christina Jarvis on 26-08-4782Arcbfiraih filtration rate [Volume Rate/Area] in Serum, Plasma or Blood by Creatinine> 60.0 mL/MinUc HealthGlucose [Mass/volume] in Serum or Plasma Ordered By: Christina Jarvis on 66-33-4981Uqemyov [Mass/Vol]105 mg/eHAxrg54-832 Uc HealthComment on above:ADA recommended reference rangeRandom Glucose Reference [...] WTH eA, CBC, CMP, LIPID, TSH3 #### [facility] [address] [place] [id number] USAGlucose [Mass/volume] in Urine by Test stripOrdered By: Christina Jarvis on 51-42-6495Rvotfzs Test strip (U) [Mass/Vol]Normal mg/dLNormal Uc HealthHematocrit [Volume Fraction] of Blood by Automated countOrdered By: Christina Jarvis on 69-71-0134Blhmogqdqj (Bld) [Volume fraction]42.3 %Kapzud91.0-46.4FCleveland Clinic Hillcrest HospitalComment on above: Performed By: #### CUU, ADDONUAPLUS, A1C WTH eA, CBC, CMP, LIPID, TSH3 #### [facility] [address] [place] [id number] USAHemoglobin A1c/Hemoglobin.total in BloodOrdered By: Christina Jarvis on 93-58-3400UwL7i (Bld) [Mass fraction]5.5 %Normal4.3-5.6FCleveland Clinic Hillcrest HospitalComment on above:Increased risk for diabetes: 5.7 - 6.4diabetes: >6.4glycemic control for adults with diabetes: <7.0Result Comment: Increased risk for diabetes: 5.7 - 6.4 diabetes: >6.4 glycemic control for adults with diabetes: <7.0Performed By: #### CUU, ADDONUAPLUS, A1C WTH eA, CBC, CMP, LIPID, TSH3 #### [facility] [address] [place] [id number] USAHemoglobin Test strip Ql (U)Ordered By: Christina Jarvis on 50-99-8606Vlwnfadjhv Ql (U)1+HighNegativeUc Health Hemoglobin [Mass/volume] in BloodOrdered By: Christina Jarvis on 06-10-2025 Hemoglobin (Bld) [Mass/Vol]14.0 g/qDLkrobh17.8-15.4FC[facility] Hill[facility]st HospitalComment on above:Performed By: #### CUU, ADDONUAPLUS, A1C WTH eA, CBC, CMP, LIPID, TSH3 #### [facility] [address] [place] [address] USAHyaline casts [#/area] in Urine sediment by Automated countOrdered By: Christina Jarvis on 18-19-1987Fllzmmx casts Auto (Urine sed) [#/Area]None [LPF]0-8Uc HealthKetones [Presence] in Urine by Test stripOrdered By: Christina Jarvis on 46-22-7876Fhawmxo Ql (U)Trace NormalNegBucyrus Community HospitalComment on above:Order Comment: Name Collection Type:: Clean-Voided MidstreamPerformed By: #### CUU, ADDONUAPLUS, A1C WTH eA, CBC, CMP, LIPID, TSH3 #### [facility] [address] [place] [id number] USALeukocyte esterase [Presence] in Urine by Test strip Ordered By: Christina Jarvis on 15-53-3994Csnentbpm esterase Test strip Ql (U) NegativeNormalNegBucyrus Community HospitalComment on above:Order Comment: Name Collection Type:: Clean-Voided MidstreamPerformed By: #### CUU, ADDONUAPLUS, A1C WTH eA, CBC, CMP, LIPID, TSH3 #### [facility] [address] [place] [id number] USALeukocytes [#/area] in Urine sediment by Automated count Ordered By: Christina Jarvis on 69-54-1981BPK Auto (Urine sed) [#/Area]1-2 [HPF]0-4 Uc HealthLeukocytes [#/volume] corrected for nucleated erythrocytes in Blood by Automated counOrdered By: Christina Jarvis on 74-77-7987DZK corrected for nucl RBC Auto (Bld) [#/Vol]4.3 10*3/uL3.8-11.6FC[facility] Clinic Hill[facility]st HospitalLeukocytes [#/volume] in Blood by Automated countOrdered By: Christina Jarvis on 07-01-9252SIM (Bld) [#/Vol]4.3 10*3/uLNormal3.8-11.6FCleveland Clinic Hillcrest HospitalComment on above:Performed By: #### CUU, ADDONUAPLUS, A1C WTH eA, CBC, CMP, LIPID, TSH3 #### [facility] [address] [place] [address] USALipid Panelon 06-01-0511CTR Cholesterol,Rpztkeujeu99 mg/dL Normal0-100The [facility] Physician GroupComment on above:Result Comment: LDL ATP III CLASSIFICATION LDL less than 100 mg/dL Optimal LDL 100-129 mg/dL Near or above optimal LDL 130-159 mg/dL Borderline high LDL 160-189 mg/dL High LDL greater than 189 mg/dL Very highPerformed By: #### CUU, ADDONUAPLUS, A1C WTH eA, CBC, CMP, LIPID, TSH3 #### [facility] [address] [place] [id number] USATriglyceride w/Rwbocw861 mg/dLHigh0-149The [facility] Physician GroupComment on above:Result Comment: TRIG ATP III CLASSIFICATION TRIG less than 150 mg/dL Normal TRIG 150-199 mg/dL Borderline high TRIG 200-500 mg/dL High TRIG greater than 500 mg/dL Very high Standard traceable to the Center for Disease Conrtrol and Prevention (CDC) test method.Performed By: #### CUU, ADDONUAPLUS, A1C WTH eA, CBC, CMP, LIPID, TSH3 #### [facility] [address] [place] [id number] USAVLDL GGMFUFNOVCT88 mg/dLNormalThe [facility]ician [facility] HospitalComment on above:Performed By: #### CUU, ADDONUAPLUS, A1C WTH eA, CBC, CMP, LIPID, TSH3 #### [facility] [address] [place] [phone] USALymphocytes [#/volume] in Blood by Automated countOrdered By: Christina Jarvis on 16-90-6895Pphgnimlflk (Bld) [#/Vol]1.0 10*3/uLNormal1.00-4.8 Uc HealthComment on above:Performed By: #### CUU, ADDONUAPLUS, A1C WTH eA, CBC, CMP, LIPID, TSH3 #### [facility] [address] [place] [id number] USALymphocytes/100 leukocytes in Blood by Automated count Ordered By: Christina Jarvis on 78-31-8881Snuhnvqhxpd/100 WBC (Bld)23.0 %Normal. Uc HealthComment on above:Performed By: #### CUU, ADDONUAPLUS, A1C WTH eA, CBC, CMP, LIPID, TSH3 #### [facility] [address] [Entitic mass] by Automated countOrdered By: Christina Jarvis on 23-71-2061FPP (RBC) [Entitic mass]29.8 flFkjywz18.7-34.3FCleveland Clinic Hillcrest HospitalComment on above:Performed By: #### CUU, ADDONUAPLUS, A1C WTH eA, CBC, CMP, LIPID, TSH3 #### [facility] [address] Auto (RBC) [Mass/Vol]Ordered By: Christina Jarvis on 98-81-9336EOQK (RBC) [Mass/Vol]33.1 g/dL32.0-35.0[facility] CenterV [Entitic volume] by Automated countOrdered By: Christina Jarvis on 94-62-8346EVI (RBC) [Entitic vol]89.9 vAPfbofg43-900OboggbhzpUc HealthComment on above:Performed By: #### CUU, ADDONUAPLUS, A1C WTH eA, CBC, CMP, LIPID, TSH3 #### [facility] [address] [place] [address] USAMonocytes [#/volume] in Blood by Automated countOrdered By: Christina Jarvis on 00-44-8605Bbxinbxmg (Bld) [#/Vol]0.3 10*3/uLNormal0.0-0.8 Uc HealthComment on above:Performed By: #### CUU, ADDONUAPLUS, A1C WTH eA, CBC, CMP, LIPID, TSH3 #### [facility] [address] [place] [address] USAMonocytes/100 leukocytes in Blood by Automated count Ordered By: Christina Jarvis on 42-22-7662Bplpumipb/100 WBC (Bld)7.6 %Normal. Uc HealthComment on above:Performed By: #### CUU, ADDONUAPLUS, A1C WTH eA, CBC, CMP, LIPID, TSH3 #### [facility] [address] [place] [phone] USAMucus [Presence] in Urine by AutomatedOrdered By: Christina Jarvis on 56-78-7482Sbqkc Auto Ql (U)Rare [LPF][facility] Neutrophils [#/volume] in Blood by Automated countOrdered By: Christina Jarvis on 38-17-9653Qxvzfadkvry (Bld) [#/Vol]2.8 10*3/uLNormal1.8-7.7FC[facility] Clinic [facility] HospitalComment on above:Performed By: #### CUU, ADDONUAPLUS, A1C WTH eA, CBC, CMP, LIPID, TSH3 #### [facility] [address] [place] [id number] USANeutrophils/100 leukocytes in Blood by Automated count Ordered By: Christina Jarvis on 86-47-8889Qnrezyxhcgu/100 WBC (Bld)65.5 %Normal. Uc HealthComment on above:Performed By: #### CUU, ADDONUAPLUS, A1C WTH eA, CBC, CMP, LIPID, TSH3 #### [facility] [address] [place] [address] USANitrite Test strip Ql (U)Ordered By: Christina Jarvis on 34-22-5435Mbozgnx Ql (U)NegativeNegativeUc HealthNo Panel InformationOrdered By: Christina Jarvis on 48-73-8410Wteouydm Creatinine Clearance (ChemN/AFCleveland Clinic Hillcrest HospitalNucleated erythrocytes [Presence] in Blood by Automated countOrdered By: Christina Jarvis on 06-10-2025 Nucleated RBC Auto Ql (Bld)0.2 /100{WBC}0-0.5FC[facility] Platelet mean volume [Entitic volume] in Blood by Automated countOrdered By: Christina Jarvis on 14-06-0112Emuxpnav mean volume (Bld) [Entitic vol]8.1 fLNormal 6.3-10.7FCleveland Clinic Hillcrest HospitalComment on above:Performed By: #### CUU, ADDONUAPLUS, A1C WTH eA, CBC, CMP, LIPID, TSH3 #### [facility] [address] [place] [address] USAPlatelets [#/volume] in Blood by Automated countOrdered By: Christina Jarvis on 19-66-0844Fetakkjqt (Bld) [#/Vol]323 10*3/hEZvimrn158-406 Uc HealthComment on above:Performed By: #### CUU, ADDONUAPLUS, A1C WTH eA, CBC, CMP, LIPID, TSH3 #### [facility] [address] [place] [address] USAPotassium [Moles/volume] in Serum or PlasmaOrdered By: Christina Jarvis on 52-66-1199Rbdpzzrjy [Moles/Vol]4.1 mmol/LNormal3.5-5.1FCleveland Clinic Hillcrest HospitalComment on above:Lipemia is present at a level that could interfere with the result.Hemolysis is present at a level that could interfere with the result.Result Comment: Lipemia is present at a level that could interfere with the result. Hemolysis is present at a level that could interfere with the result.Performed By: #### CUU, ADDONUAPLUS, A1C WTH eA, CBC, CMP, LIPID, TSH3 #### [facility] [address] [place] [address] USAProtein Test strip (U) [Mass/Vol]Ordered By: Christina Jarvis on 90-10-9302Zblzybp (U) [Mass/Vol]NegativeNegativeUc HealthProtein [Mass/volume] in Serum or PlasmaOrdered By: Christina Jarvis on 61-40-4090Vsefztv [Mass/Vol]6.8 g/dLNormal6.4-8.9Uc HealthComment on above:Performed By: #### CUU, ADDONUAPLUS, A1C WTH eA, CBC, CMP, LIPID, TSH3 #### [facility] [address] [place] [address] USASerum globulin measurement by calculation (mass/volume) Ordered By: Christina Jarvis on 02-73-9441Gmhlhnto (S) [Mass/Vol]2.6 g/dLNormal Uc HealthComment on above:Performed By: #### CUU, ADDONUAPLUS, A1C WTH eA, CBC, CMP, LIPID, TSH3 #### [facility] [address] [place] [phone] USASerum or plasma albumin/globulin mass ratioOrdered By: Christina Jarvis on 64-54-2367Nrjyrzz/Globulin [Mass ratio]1.6 {ratio}Normal Uc HealthComment on above:Performed By: #### CUU, ADDONUAPLUS, A1C WTH eA, CBC, CMP, LIPID, TSH3 #### [facility] [address] [place] [phone] USASerum or plasma anion gap determinationOrdered By: Christina Jarvis on 35-95-9151Igedx gap [Moles/Vol]11.5 mmol/LNormal6.0-15.0Uc HealthComment on above:Performed By: #### CUU, ADDONUAPLUS, A1C WTH eA, CBC, CMP, LIPID, TSH3 #### [place] [address] USASerum or plasma total cholesterol/high density lipoprotein (HDL) cholesterol mass ratOrdered By: Christina Jarvis on 06-10-2025 Cholesterol.total/Cholesterol in HDL [Mass ratio]3.5 {ratio}Normal<5.0Uc HealthComment on above:Performed By: #### CUU, ADDONUAPLUS, A1C WTH eA, CBC, CMP, LIPID, TSH3 #### [place] [id number] USASodium [Moles/volume] in Serum or PlasmaOrdered By: Christina Jarvis on 06-34-6574Kcsvky [Moles/Vol]139 mmol/FEoizfm465-713FciqwiwfrUc HealthComment on above:Lipemia is present at a level that could interfere with the result.Hemolysis is present at a level that could interfere with the result.Result Comment: Lipemia is present at a level that could interfere with the result. Hemolysis is present at a level that could interfere with the result.Performed By: #### CUU, ADDONUAPLUS, A1C WTH eA, CBC, CMP, LIPID, TSH3 #### [place] [id number] USASpecific gravity Test strip (U) [Rel density]Ordered By: Christina Jarvis on 35-05-7366Trqekrla gravity (U) [Rel density]1.0141.001-1.030 Uc HealthThyrotropin [Units/volume] in Serum or Plasma Ordered By: Christina Jarvis on 75-31-4727VRB Qn2.22 m[IU]/LNormal0.45-5.33Uc HealthComment on above:Result Comment: PERFORMED BY: [place] [address] PATHOLOGIST ENCYCLOPEDIA RESEARCH WORKER CHAMP COATES M.D.Performed By: #### MARCUS TERAN, A1C WTH eA, CBC, CMP, LIPID, TSH3 #### [facility] [address] [place] [address] USATriglyceride [Mass/volume] in Serum or PlasmaOrdered By: Christina Jarvis on 66-50-1906Yzawhghaaxlf [Mass/Vol]163 mg/dLHigh0-149Uc HealthComment on above:TRIG ATP III CLASSIFICATIONTRIG less than 150 mg/dL NormalTRIG 150-199 mg/dL Borderline highTRIG 200-500 mg/dL High TRIG greater than 500 mg/dL Very highStandard traceable to the Center for Disease Conrtrol and Prevention (CDC) test method.Urea nitrogen [Mass/volume] in Serum or PlasmaOrdered By: Christina Jarvis on 84-36-1710Cubd nitrogen [Mass/Vol]15 mg/dLNormal7-25Uc HealthComment on above:Performed By: #### BOB TERANONJARRETPLUS, A1C WTH eA, CBC, CMP, LIPID, TSH3 #### [facility] [address] [place] [address] USAUrine Cultureon 39-34-8249Ghzdfedb identified Cx Nom (U) >100,000 colonies/ml mixed bacterial skin contaminants 2 Days PERFORMED BY: [place] [address] PATHOLOGIST ENCYCLOPEDIA RESEARCH WORKER CHAMP COATES M.D.NormalThe [facility]ata[facility] Physician GroupComment on above: Performed By: #### ANSONU, ADDONUAPLUS, A1C [facility] eA, CBC, CMP, LIPID, TSH3 #### [facility] [address] [place] [address] USAUrobilinogen Test strip (U) [Mass/Vol]Ordered By: Christina Jarvis on 19-99-7520Eixakcdvaewv (U) [Mass/Vol]Normal mg/dLNormalUc HealthpH of Urine by Test stripOrdered By: Christina Jarvis on 08-39-9505sP (U)6.0 [pH]Normal5.0-9.0Uc HealthComment on above:Order Comment: Name Collection Type:: Clean-Voided MidstreamPerformed By: #### CUU, ADDONUAPLUS, A1C [facility] eA, CBC, CMP, LIPID, TSH3 #### [facility] [address] [place] [id number] USAAlanine aminotransferase [Enzymatic activity/volume] in Serum or PlasmaOrdered By: Christina Jarvis on 26-82-6135APG [Catalytic activity/Vol]25 U/L7-52Uc HealthAlbumin [Mass/volume] in Serum or Plasma by Bromocresol green (BCG) dye binding methoOrdered By: Christina Jarvis on 73-24-1806Ahswuoi BCG dye [Mass/Vol]4.1 g/dL3.5-5.7FCleveland Clinic Hillcrest HospitalAlkaline phosphatase [Enzymatic activity/volume] in Serum or PlasmaOrdered By: Christina Jarvis on 66-35-7752RMW [Catalytic activity/Vol]84 U/L 34-104Uc HealthAspartate aminotransferase [Enzymatic activity/volume] in Serum or PlasmaOrdered By: Christina Jarvis on 74-76-5438ZUC [Catalytic activity/Vol]25 U/V80-42OgtilnoxmUc HealthBacteria [Presence] in Urine by AutomatedOrdered By: Christina Jarvis on 15-48-6343Xzmfxjua Auto Ql (U)None seen [HPF]None SeenUc HealthBasophils Auto (Bld) [#/Vol]Ordered By: Christina Jarvis on 94-28-8196Jsecoaeff (Bld) [#/Vol] 0.0 10*3/uL0.0-0.2FC[facility] Clinic Hill[facility]st HospitalBasophils/100 WBC Auto (Bld) Ordered By: Christina Jarvis on 67-39-4580Eivorzmtn/100 WBC (Bld)1.0 %.Uc HealthBilirubin Test strip Ql (U)Ordered By: Christina Jarvis on 51-34-4854Yfagvymez Ql (U)NegativeNegativeUc Health Bilirubin.total [Mass/volume] in Serum or PlasmaOrdered By: Christina Jarvis on 72-42-4865Ynvijyobz [Mass/Vol]0.5 mg/dL0.3-1.0[facility] Calcium [Mass/volume] in Serum or PlasmaOrdered By: Christina Jarvis on 05-24-2024 Calcium [Mass/Vol]9.9 mg/dL8.6-10.3FC[facility] Clinic Hillcrest HospitalCarbon dioxide, total [Moles/volume] in Serum or PlasmaOrdered By: Christina Jarvis on 57-38-8517TA5 [Moles/Vol]29.1 mmol/L21.0-31.0[facility] Chloride [Moles/volume] in Serum or PlasmaOrdered By: Christina Jarvis on 05-24-2024 Chloride [Moles/Vol]104 mmol/D92-764NsouynkszUc HealthCholesterol [Mass/volume] in Serum or PlasmaOrdered By: Christina Jarvis on 05-24-2024 Cholesterol [Mass/Vol]175 mg/vA578-520JwgbsgsywUc HealthComment on above:Chol less than 200 mg/dl low riskChol 201-239 mg/dl borderline riskChol 240 mg/dl and greater high riskCholesterol in LDL Calc [Mass/Vol]Ordered By: Christina Jarvis on 40-25-3278Uzdcjzulptq in LDL [Mass/Vol]90 mg/dL0-100Uc HealthComment on above:LDL ATP III CLASSIFICATIONLDL less than 100 mg/dL OptimalLDL 100-129 mg/dL Near or above xqekfheNMA175-230 mg/dL Borderline highLDL 160-189 mg/dL HighLDL greater than 189 mg/dL Very high Cholesterol in VLDL Calc [Mass/Vol]Ordered By: Christina Jarvis on 05-24-2024 Cholesterol in VLDL [Mass/Vol]36 mg/dLUc HealthColor Auto (U)Ordered By: Christina Jarvis on 41-57-0365Lihqv (U)Light-yellowYellow Uc HealthCreatinine [Mass/volume] in Serum or Plasma Ordered By: Christina Jarvis on 84-03-0641Vazwjblyol [Mass/Vol]0.85 mg/dL0.60-1.20 Uc HealthEosinophils Auto (Bld) [#/Vol]Ordered By: Christina Jarvis on 16-89-2068Owfcqflwgmd (Bld) [#/Vol]0.2 10*3/uL0.0-0.45Uc HealthEosinophils/100 WBC Auto (Bld)Ordered By: Christina Jarvis on 30-59-1122Jibpalluezj/100 WBC (Bld)3.6 %.[facility] Epithelial cells.squamous [#/area] in Urine sediment by Automated countOrdered By: Christina Jarvis on 07-25-0134Kdkrhezvkl cells.squamous Auto (Urine sed) [#/Area]1-2 [HPF]0-2FCleveland Clinic Hillcrest HospitalErythrocyte distribution width Auto (RBC) [Ratio]Ordered By: Christina Jarvis on 92-61-5199Uoefpwueeuf distribution width (RBC) [Ratio]14.7 %11.9-15.3FC[facility] Erythrocytes [#/area] in Urine sediment by Automated countOrdered By: Christina Jarvis on 98-80-0154VMG Auto (Urine sed) [#/Area]3-4 [HPF]0-4FCleveland Clinic Hillcrest HospitalGlobulin Calc (S) [Mass/Vol]Ordered By: Christina Jarvis on 05-24-2024 Globulin (S) [Mass/Vol]2.3 g/dLUc HealthGlucose [Mass/volume] in Serum or PlasmaOrdered By: Christina Jarvis on 29-64-2510Inaulrz [Mass/Vol]97 mg/wD80-352CspglfsrhUc HealthComment on above:ADA recommended reference rangeRandom Glucose Reference Range is dependent on time and content of last meal. Glucose of more than 200 mg/dL in a nonstressed, ambulatory subject supports the diagnosisof Diabetes Mellitus.Glucose [Mass/volume] in Urine by Test stripOrdered By: Christina Jarvis on 05-24-2024 Glucose Test strip (U) [Mass/Vol]Normal mg/dLNormalUc HealthGlucose mean value [Mass/volume] in Blood Estimated from glycated hemoglobinOrdered By: Christina Jarvis on 95-58-7846Ghfamif glucose Estimated from glycated hemoglobin (Bld) [Mass/Vol]126 mg/dLUc Health Hematocrit Auto (Bld) [Volume fraction]Ordered By: Christina Jarvis on 05-24-2024 Hematocrit (Bld) [Volume fraction]41.0 %34.0-46.4FCleveland Clinic Hillcrest HospitalHemoglobin A1c percentageOrdered By: Christina Jarvis on 94-95-5954AjY9m (Bld) [Mass fraction]6.0 %High4.3-5.6FCleveland Clinic Hillcrest HospitalComment on above:Increased risk for diabetes: 5.7 - 6.4diabetes: >6.4glycemic control for adults with diabetes: <7.0Hemoglobin Test strip Ql (U)Ordered By: Christina Jarvis on 31-85-3639Qkfgitbehs Ql (U)1+HighNegativeUc HealthHemoglobin [Mass/volume] in BloodOrdered By: Christina Jarvis on 05-24-2024 Hemoglobin (Bld) [Mass/Vol]13.6 g/dL11.8-15.4FC[facility] Hyaline casts [#/area] in Urine sediment by Automated countOrdered By: Christina Jarvis on 34-42-8628Xttplrv casts Auto (Urine sed) [#/Area]None [LPF]0-8 Uc HealthKetones Test strip Ql (U)Ordered By: Christina Jarvis on 73-90-6849Deylsgu Ql (U)NegativeNegativeUc HealthLeukocyte esterase [Presence] in Urine by Test stripOrdered By: Christina Jarvis on 07-27-3959Vatznqdti esterase Test strip Ql (U)NegativeNegative Uc HealthLeukocytes [#/area] in Urine sediment by Automated countOrdered By: Christina Jarvis on 44-63-2524NJU Auto (Urine sed) [#/Area]1-2 [HPF]0-4FCleveland Clinic Hillcrest HospitalLeukocytes [#/volume] corrected for nucleated erythrocytes in Blood by Automated counOrdered By: Christina Jarvis on 91-16-7392XDU corrected for nucl RBC Auto (Bld) [#/Vol]4.3 10*3/uL 3.8-11.6FCleveland Clinic Hillcrest HospitalLymphocytes Auto (Bld) [#/Vol]Ordered By: Christina Jarvis on 50-08-7533Nvcwhmjnspn (Bld) [#/Vol]1.2 10*3/uL1.00-4.8 Uc HealthLymphocytes/100 WBC Auto (Bld)Ordered By: Christina Jravis on 33-65-3858Jdcbhluonsq/100 WBC (Bld)27.5 %.[facility] CenterH Auto (RBC) [Entitic mass]Ordered By: Christina Jarvis on 69-37-6816KYF (RBC) [Entitic mass]29.4 pg24.7-34.3FCleveland Clinic Hillcrest HospitalMCHC Auto (RBC) [Mass/Vol]Ordered By: Christina Jarvis on 28-75-9909RGBS (RBC) [Mass/Vol]33.2 g/dL32.0-35.0Uc HealthMCV Auto (RBC) [Entitic vol] Ordered By: Christina Jarvis on 80-04-6967OML (RBC) [Entitic vol]88.5 pB02-784 Uc HealthMonocytes Auto (Bld) [#/Vol]Ordered By: Christina Jarvis on 69-15-0463Yvwygvvbt (Bld) [#/Vol]0.4 10*3/uL0.0-0.8Uc HealthMonocytes/100 WBC Auto (Bld)Ordered By: Christina Jarvis on 05-24-2024 Monocytes/100 WBC (Bld)8.6 %.Uc HealthMucus [Presence] in Urine by AutomatedOrdered By: Christina Jarvis on 03-24-4368Kpikx Auto Ql (U)Rare [LPF]Uc HealthNeutrophils Auto (Bld) [#/Vol]Ordered By: Christina Jarvis on 70-68-3495Ybqgodlxtmx (Bld) [#/Vol]2.5 10*3/uL1.8-7.7FCleveland Clinic Hillcrest HospitalNeutrophils/100 WBC Auto (Bld)Ordered By: Christina Jarvis on 66-99-9025Uwsvqddhwqh/100 WBC (Bld)59.3 %.[facility] Nitrite Test strip Ql (U)Ordered By: Christina Jarvis on 41-45-0438Jnwphto Ql (U) NegativeNegativeUc HealthNo Panel InformationOrdered By: Christina Jarvis on 14-11-4000Tvuoxrmig GFR (CKD-EPI)> 60.0 mL/MinUc HealthPharmacy Creatinine Clearance (ChemN/AFCleveland Clinic Hillcrest HospitalNucleated erythrocytes [Presence] in Blood by Automated count Ordered By: Christina Jarvis on 89-41-6419Dfjzdnnwv RBC Auto Ql (Bld)0.1 /100{WBC} 0-0.5FCleveland Clinic Hillcrest HospitalPlatelet mean volume Auto (Bld) [Entitic vol]Ordered By: Christina Jarvis on 23-25-2738Fjzyzfmf mean volume (Bld) [Entitic vol]7.9 fL6.3-10.7FCleveland Clinic Hillcrest HospitalPlatelets Auto (Bld) [#/Vol] Ordered By: Christina Jarvis on 91-39-0306Rpqwcaxos (Bld) [#/Vol]325 10*3/vV982-928 [facility] HealthPotassium [Moles/volume] in Serum or Plasma Ordered By: Christina Jarvis on 39-11-6189Zhilezdbf [Moles/Vol]4.2 mmol/L3.5-5.1 [facility] HealthProtein Test strip (U) [Mass/Vol]Ordered By: Christina Jarvis on 93-42-4347Jajxoai (U) [Mass/Vol]NegativeNegativeUc HealthProtein [Mass/volume] in Serum or PlasmaOrdered By: Christina Jarvis on 72-50-6025Ccldkso [Mass/Vol]6.4 g/dL6.4-8.9[facility] HealthRBC Auto (Bld) [#/Vol]Ordered By: Christina Jarvis on 02-46-9677SQW (Bld) [#/Vol]4.63 10*6/uL3.60-5.00[facility] Hospitalerum or plasma albumin/globulin mass ratioOrdered By: Christina Jarvis on 05-24-2024 Albumin/Globulin [Mass ratio]1.8 {ratio}[facility] Hospitalerum or plasma anion gap determinationOrdered By: Christina Jarvis on 51-28-6372Mpccl gap [Moles/Vol]10.1 mmol/L6.0-15.0[facility] Hospitalerum or plasma high density lipoprotein (HDL) cholesterol measurementOrdered By: Christina Jarvis on 88-09-5960Accvsjrmcxh in HDL [Mass/Vol]49 mg/wV83-13YmxujglknUc HealthComment on above:HDL CHOL ATP-III CLASSIFICATION Cardiovascular RiskHDL > or equal to 60 mg/dL LOWHDL < 40 mg/dL HIGHSerum or plasma total cholesterol/high density lipoprotein (HDL) cholesterol mass ratOrdered By: Christina Jarvis on 23-21-8873Wrzefnrpfkw.total/Cholesterol in HDL [Mass ratio]3.6 {ratio}<5.0[facility] Hospitalodium [Moles/volume] in Serum or PlasmaOrdered By: Chirstina Jarvis on 98-21-2258Eqrcum [Moles/Vol]139 mmol/O448-110 [facility] Hospitalpecific gravity Test strip (U) [Rel density] Ordered By: Christina Jarvis on 86-99-3988Litozylv gravity (U) [Rel density]1.016 1.001-1.030Uc HealthThyrotropin [Units/volume] in Serum or PlasmaOrdered By: Christina Jarvis on 87-11-0231QXT Qn2.10 m[IU]/L0.45-5.33 Uc HealthTriglyceride [Mass/volume] in Serum or Plasma Ordered By: Christina Jarvis on 96-66-3183Oxtnpbstwble [Mass/Vol]182 mg/dLHigh0-149 Uc HealthComment on above:TRIG ATP III CLASSIFICATIONTRIG less than 150 mg/dL NormalTRIG 150-199 mg/dL Borderline highTRIG 200-500 mg/dL High TRIG greater than 500 mg/dL Very highStandard traceable to the Center for Disease Conrtrol and Prevention (CDC) test method. Urea nitrogen [Mass/volume] in Serum or PlasmaOrdered By: Christina Jarvis on 59-35-9477Vjci nitrogen [Mass/Vol]12 mg/dL7-25[facility] Urine appearanceOrdered By: Christina Jarvis on 27-92-5504Clsayrlbsv (U)ClearClear Uc HealthUrine culture routineOrdered By: Christina Jarvis on 13-73-4310Wlgwmadd identified Cx Nom (U)2 DaysUc HealthUrobilinogen Test strip (U) [Mass/Vol]Ordered By: Christina Jarvis on 33-75-6072Ymlgosloijfh (U) [Mass/Vol]Normal mg/dLNormalUc HealthWBC Auto (Bld) [#/Vol]Ordered By: Christina Jarvis on 57-60-2099XEQ (Bld) [#/Vol]4.3 10*3/uL3.8-11.6FCleveland Clinic Hillcrest HospitalpH Test strip (U)Ordered By: Christina Jarvis on 43-74-6127cO (U)6.5 [pH]5.0-9.0Uc HealthAlanine aminotransferase [Enzymatic activity/volume] in Serum or PlasmaOrdered By: Christina Jarvis on 76-26-6405PRN [Catalytic activity/Vol]20 U/L 7-52Uc HealthAlbumin [Mass/volume] in Serum or Plasma by Bromocresol green (BCG) dye binding methoOrdered By: Christina Jarvis on 02-04-2023 Albumin BCG dye [Mass/Vol]3.9 g/dL3.5-5.7FC[facility] Hospital Alkaline phosphatase [Enzymatic activity/volume] in Serum or PlasmaOrdered By: Christina Jarvis on 40-44-3362CAV [Catalytic activity/Vol]84 U/X76-188HvdmcavfhUc HealthAspartate aminotransferase [Enzymatic activity/volume] in Serum or PlasmaOrdered By: Christina Jarvis on 51-31-2395PAZ [Catalytic activity/Vol]20 U/R65-85HbalrbyfhUc HealthAutomated erythrocytes count in urine sediment (number/area)Ordered By: Christina Jarvis on 88-30-1919GMI Auto (Urine sed) [#/Area]3-4 [HPF]0-4FCleveland Clinic Hillcrest HospitalAutomated leukocytes count in urine sediment (number/area)Ordered By: Christina Jarvis on 66-60-2030WDR Auto (Urine sed) [#/Area]None seen [HPF]0-4FCleveland Clinic Hillcrest HospitalBasophils Auto (Bld) [#/Vol]Ordered By: Christina Jarvis on 02-04-2023 Basophils (Bld) [#/Vol]0.0 10*3/uL0.0-0.2FCleveland [facility] Hospital Basophils/100 WBC Auto (Bld)Ordered By: Christina Jarvis on 32-43-4072Apxcbqubu/100 WBC (Bld)1.1 %.Uc HealthBilirubin Test strip Ql (U) Ordered By: Christina Jarvis on 34-01-0376Ytminrwoj Ql (U)NegativeNegativeUc HealthBilirubin.total [Mass/volume] in Serum or PlasmaOrdered By: Christina Jarvis on 99-42-1979Bhydxsypn [Mass/Vol]0.5 mg/dL0.3-1.0Uc HealthCalcium [Mass/volume] in Serum or PlasmaOrdered By: Christina Jarvis on 13-63-1210Sbkrcjq [Mass/Vol]9.4 mg/dL8.6-10.3FCleveland Clinic Hillcrest HospitalCarbon dioxide, total [Moles/volume] in Serum or PlasmaOrdered By: Christina Jarvis on 01-30-2518JV2 [Moles/Vol]30.3 mmol/L21.0-31.0Uc HealthChloride [Moles/volume] in Serum or PlasmaOrdered By: Christina Jarvis on 15-96-3046Ioocgkfb [Moles/Vol]104 mmol/P99-527VfsllnmglUc HealthCholesterol [Mass/volume] in Serum or PlasmaOrdered By: Christina Jarvis on 75-69-0764Qbubnxzowak [Mass/Vol]173 mg/dT489-536QqxasjxucUc HealthComment on above:Chol less than 200 mg/dl low riskChol 201-239 mg/dl borderline riskChol 240 mg/dl and greater high riskCholesterol in LDL Calc [Mass/Vol]Ordered By: Christina Jarvis on 41-77-5350Gjugjgvulqu in LDL [Mass/Vol]89 mg/dL0-100Uc HealthComment on above:LDL ATP III CLASSIFICATIONLDL less than 100 mg/dL OptimalLDL 100-129 mg/dL Near or above flvjrutAZL300-129 mg/dL Borderline highLDL 160-189 mg/dL HighLDL greater than 189 mg/dL Very highCholesterol in VLDL Calc [Mass/Vol]Ordered By: Christina Jarvis on 97-35-2108Yggkfkkxbvv in VLDL [Mass/Vol]37 mg/dLUc HealthColor Auto (U)Ordered By: Christina Jarvis on 88-59-5231Teqlr (U)YellowYellow Uc HealthCreatinine [Mass/volume] in Serum or Plasma Ordered By: Christina Jarvis on 59-47-6203Dgwkrmempc [Mass/Vol]0.84 mg/dL0.60-1.20 Uc HealthEosinophils Auto (Bld) [#/Vol]Ordered By: Christina Jarvis on 64-34-2821Rklbtidqctw (Bld) [#/Vol]0.2 10*3/uL0.0-0.45Uc HealthEosinophils/100 WBC Auto (Bld)Ordered By: Christina Jarvis on 72-42-9159Bfjafhrwvhg/100 WBC (Bld)5.4 %.[facility] Erythrocyte distribution width Auto (RBC) [Ratio]Ordered By: Christina Jarvis on 20-16-5331Hopworqiixa distribution width (RBC) [Ratio]14.9 %11.9-15.3FCleveland Clinic Hillcrest HospitalGlobulin Calc (S) [Mass/Vol]Ordered By: Christina Jarvis on 43-30-1384Eqtzfwdk (S) [Mass/Vol]2.6 g/dLUc Health Glucose [Mass/volume] in Serum or PlasmaOrdered By: Christina Jarvis on 02-04-2023 Glucose [Mass/Vol]102 mg/fI52-430NlukwkhpbUc HealthComment on above:ADA recommended reference rangeRandom Glucose Reference Range is dependent on time and content of last meal. Glucose of more than 200 mg/dL in a nonstressed, ambulatory subject supports the diagnosisof Diabetes Mellitus. Hematocrit Auto (Bld) [Volume fraction]Ordered By: Christina Jarvis on 02-04-2023 Hematocrit (Bld) [Volume fraction]39.8 %34.0-46.4FCleveland Clinic Hillcrest HospitalHemoglobin [Mass/volume] in BloodOrdered By: Christina Jarvis on 02-04-2023 Hemoglobin (Bld) [Mass/Vol]13.1 g/dL11.8-15.4FC[facility] Hospital Ketones Auto test strip (U) [Mass/Vol]Ordered By: Christina Jarvis on 02-04-2023 Ketones (U) [Mass/Vol]NegativeNegativeUc Health Laboratory - UrinalysisOrdered By: Christina Jarvis on 81-43-7259Fohrese casts LM Ql (Urine sed)None seen [LPF]0-8Uc HealthLeukocytes [#/volume] corrected for nucleated erythrocytes in Blood by Automated coun Ordered By: Christina Jarvis on 58-81-5251UYS corrected for nucl RBC Auto (Bld) [#/Vol]4.1 10*3/uL3.8-11.6FCleveland Clinic Hillcrest HospitalLymphocytes Auto (Bld) [#/Vol]Ordered By: Christina Jarvis on 17-68-0811Wldymyludgb (Bld) [#/Vol]1.0 10*3/uL1.00-4.8Uc HealthLymphocytes/100 WBC Auto (Bld) Ordered By: Christina Jarvis on 95-53-3263Yqzmegjakjp/100 WBC (Bld)25.3 %.[facility] CenterH Auto (RBC) [Entitic mass]Ordered By: Christina Jarvis on 39-74-4654NJM (RBC) [Entitic mass]29.3 pg24.7-34.3FCleveland Clinic Hillcrest HospitalMCHC Auto (RBC) [Mass/Vol]Ordered By: Christina Jarvis on 87-02-9990UHAZ (RBC) [Mass/Vol]32.9 g/dL32.0-35.0Uc HealthMCV Auto (RBC) [Entitic vol]Ordered By: Christina Jarvis on 49-23-1109GTI (RBC) [Entitic vol]89.2 wS14-661TmlsdsljoUc HealthMonocytes Auto (Bld) [#/Vol]Ordered By: Christina Jarvis on 61-52-7619Azfupjhvb (Bld) [#/Vol]0.4 10*3/uL0.0-0.8Uc HealthMonocytes/100 WBC Auto (Bld)Ordered By: Christina Jarvis on 66-88-4292Ppumuciiq/100 WBC (Bld)9.8 %.[facility] Neutrophils Auto (Bld) [#/Vol]Ordered By: Christina Jarvis on 18-83-7408Oksrcdiuszh (Bld) [#/Vol]2.4 10*3/uL1.8-7.7FCleveland Clinic Hillcrest HospitalNeutrophils/100 WBC Auto (Bld)Ordered By: Christina Jarvis on 71-97-1739Healeaybrbb/100 WBC (Bld) 58.4 %.Uc HealthNitrite Test strip Ql (U)Ordered By: Christina Jarvis on 55-84-6735Kpezaoc Ql (U)NegativeNegativeUc HealthNo Panel InformationOrdered By: Christina Jarvis on 02-04-2023 Estimated GFR (CKD-EPI)> 60.0 mL/MinUc HealthPharmacy Creatinine Clearance (ChemN/AFCleveland Clinic Hillcrest HospitalNucleated erythrocytes [Presence] in Blood by Automated countOrdered By: Christina Jarvis on 84-84-3794Gjmjcvvew RBC Auto Ql (Bld)0.1 /100{WBC}0-0.5FCleveland Clinic Hillcrest HospitalPlatelet mean volume Auto (Bld) [Entitic vol]Ordered By: Christina Jarvis on 33-30-7883Fmrcdmxn mean volume (Bld) [Entitic vol]7.8 fL6.3-10.7 Uc HealthPlatelets Auto (Bld) [#/Vol]Ordered By: Christina Jarvis on 05-24-8011Ildzbqtcj (Bld) [#/Vol]308 10*3/uF197-291GpprnmvvtUc HealthPotassium [Moles/volume] in Serum or PlasmaOrdered By: Christina Jarvis on 37-32-7043Mnkmmzuen [Moles/Vol]4.4 mmol/L3.5-5.1FCleveland Clinic Hillcrest HospitalProtein Auto test strip (U) [Mass/Vol]Ordered By: Christina Jarvis on 20-08-1933Mbwgonz (U) [Mass/Vol]NegativeNegativeUc HealthProtein [Mass/volume] in Serum or PlasmaOrdered By: Christina Jarvis on 26-84-4295Mbekfkn [Mass/Vol]6.5 g/dL6.4-8.9Uc HealthRBC Auto (Bld) [#/Vol]Ordered By: Christina Jarvis on 10-10-2356KPM (Bld) [#/Vol]4.46 10*6/uL3.60-5.00[facility] Hospitalerum or plasma albumin/globulin mass ratioOrdered By: Christina Jarvis on 02-04-2023 Albumin/Globulin [Mass ratio]1.5 {ratio}[facility] Hospitalerum or plasma anion gap determinationOrdered By: Christina Jarvis on 53-25-5272Ylchu gap [Moles/Vol]10.1 mmol/L6.0-15.0[facility] Hospitalerum or plasma high density lipoprotein (HDL) cholesterol measurementOrdered By: Christina Jarvis on 34-97-8318Skipdgvtdme in HDL [Mass/Vol]47 mg/uM06-91DreyvpnqcUc HealthComment on above:HDL CHOL ATP-III CLASSIFICATION Cardiovascular RiskHDL > or equal to 60 mg/dL LOWHDL < 40 mg/dL HIGHSerum or plasma total cholesterol/high density lipoprotein (HDL) cholesterol mass ratOrdered By: Christina Jarvis on 20-50-9065Zutfltrohbo.total/Cholesterol in HDL [Mass ratio]3.7 {ratio}<5.0[facility] Hospitalodium [Moles/volume] in Serum or PlasmaOrdered By: Christina Jarvis on 09-21-9820Hwqdqn [Moles/Vol]140 mmol/C015-918 [facility] Hospitalpecific gravity Auto test strip (U) [Rel density]Ordered By: Christina Jarvis on 43-86-0868Savcjghi gravity (U) [Rel density] 1.0101.001-1.030[facility] Hospitalquamous epithelial cells detection in urine sediment by light microscopyOrdered By: Christina Jarvis on 33-59-3867Sdnhzfbosr cells.squamous LM Ql (Urine sed)0-1 [HPF]0-2FCleveland Clinic Hillcrest HospitalThyrotropin [Units/volume] in Serum or PlasmaOrdered By: Christina Jarvis on 52-83-3479OSJ Qn2.01 m[IU]/L0.45-5.33Uc HealthTriglyceride [Mass/volume] in Serum or PlasmaOrdered By: Christina Jarvis on 35-32-4931Irltniyjhnjc [Mass/Vol]186 mg/dL0-149[facility] Comment on above:TRIG ATP III CLASSIFICATIONTRIG less than 150 mg/dL NormalTRIG 150-199 mg/dL Borderline highTRIG 200-500 mg/dL High TRIG greater than 500 mg/dL Very highStandard traceable to the Center for Disease Conrtrol and Prevention (CDC) test method.Urea nitrogen [Mass/volume] in Serum or PlasmaOrdered By: Christina Jarvis on 11-89-2615Ekac nitrogen [Mass/Vol]15 mg/dL7-25Uc HealthUrine bacteria detection by automated methodOrdered By: Christina Jarvis on 00-30-0796Dlxghumg Auto Ql (U)None seenNone SeenUc HealthUrine clarity by refractometry automatedOrdered By: Christina Jarvis on 55-04-3298Byvtlma Refractometry automated (U)ClearCleMiddletown HospitalUrine glucose measurement by automated test strip (mass/volume) Ordered By: Christina Jarvis on 90-68-0837Zsvcgat Auto test strip (U) [Mass/Vol] Normal mg/dLNormalUc HealthUrine hemoglobin detection by automated test stripOrdered By: Christina Jarvis on 24-52-6163Hvsvtzmsnf Auto test strip Ql (U)TraceNegativeUc HealthUrine leukocyte esterase detection by automated test stripOrdered By: Christina Jarvis on 02-04-2023 Leukocyte esterase Auto test strip Ql (U)NegativeNegativeUc HealthUrobilinogen Auto test strip (U) [Mass/Vol]Ordered By: Chrsitina Jarvis on 35-20-5504Kkchvhqwgrap (U) [Mass/Vol]Normal mg/dLNormalUc HealthWBC Auto (Bld) [#/Vol]Ordered By: Christina Jarvis on 60-15-2985GHK (Bld) [#/Vol]4.1 10*3/uL3.8-11.6FC[facility] Clinic [facility] pH Auto test strip (U)Ordered By: Christina Jarvis on 11-91-1276nP (U)7.0 [pH] 5.0-9.0Uc HealthH PYLORI TISSUEon 12-22-2022H PYL TISSUE, UREASENegativeNormalNEGATIVEThe [facility] Lodi HospitalComment on above: Performed By: #### HPYLT #### [facility] [address] [address] [address] Raffy HoytAmbulatory Clinical Summaryon 10-66-7043Iyujnmaopy Clinical Summary{0o-9m-71-16-42-cj-45-72-3u-69-57-5r-64-70-ae-31}CD:163572QkdxooXtpjlcKindred Hospital LimaAmbulatory Clinical Summary {0z-h8-5p-99-r7-a3-27-00-7l-0e-01-8f-a0-c0-db-9b}CD:302384UhtncbSqxdwgKettering Health MiamisburgPatient Educationon 64-06-2118Nhrvroh EducationUrology Hematuria, Adult Hematuria is blood in [...] these instructions at home: Medicines ? Take gsfu-hoc-zfhafmv and prescription medicines only as told by [...] the blood stops without treatment. ? Take uhpp-obz-wmdfcql and prescription medicines only as told by your health care provider. ? Drink enough fluid to keep your urine clear or pale yellow. This information is not intended to replace advice given to you by your health care provider. Make sure you discuss any questions you have with your health care provider. Document Released: 10/10/2006 Document Revised: 03/05/2020 Document Reviewed: 11/12/2017 [employer] Patient Education ? 2019 [employer].[facility] Urology Office/Clinic Noteon 42-36-1750Hmmdxop Office/Clinic NoteChief Complaint 3 week f/u to cysto This patient is here to complete his hematuria work-up. She had recent cystoscopic examination. Sheis here to review labs. [facility] Staff Pt is here for a 3 [...] Moisés Nye, URO [address] [id number]- Additional Instructions: prn Patient Education Hematuria, Adult [...] evidence of tumors obstructions or mucosal lesions. [facility] Health MiamisburgComment on above:Result Comment: Electronically Signed By: Dave Krueger MD, Moisés Nye\.br\Date and Time Signed: 03/12/2109:24 EDT\.br\Electronically Co-Signed By: Elizabet Elliott MA\.br\Date and Time Co- Signed: 03/12/21 09:07 EDTLab Reportson 30-52-5274Sly Reports [id number]#1.00CD:127NoKindred Hospital LimaRAD - CT Reporton 84-67-7286KAJ - CT Report [id number]#1.00CD:127NoKindred Hospital LimaUroVysion Fish and Urine Cyto ([facility]4 [facility])on 68-36-8404FONXWI & UCDiagnosis InfoInvalid Interpretation [facility] HospitalComment on above: Result Comment: A:Urine,Urine:Voided Diagnosis [...] by : on: 02/19/2021 10:26:09Performed By: #### [id number] ####[facility] [address] [facility] [place], YP[address]Jpncvu Summary.on 97-54-9008Cbtiaq Summary. CD:201392HS:4883638ZQw4yXw+PGhlYWQ+UK3EMBDoV74tzLGjbF0DW8rXCW8TNUVZUSIVPN8ZEV6oc TP7XBroG0IandKx [file] c2U6 (more content not included)...NormalThe Surgical Hospital At SouthwoodsConsent for Procedure/Surgeryon 52-81-3156Ewlwtbi for Procedure/Surgery [id number]#1.00CD:127K[facility]tering Health MiamisburgConsent for Treatmenton 96-34-1064Kadtasq for Treatment [id number]#1.00CD:[address] [place], [place] [address]Discharge Instructionson 82-05-4378Jqpgshljx Instructions [id number]#1.00CD:[address] [place], [place] [address]IntraOperative Documentson 88-80-9322TeonqKesachslw Documents [id number]#1.00CD:127NormalFisher Brandenburg CenterMain OR Intraoperative Recordon 83-06-4755Xzlj OR Intraoperative Record IntraOp Document Type FTURO Summary Primary Physician: Moisés Acosta Jr., MD Finalized Date/Time: 02/12/21 14:26:27 Pt. Name: KAYLEIGH BROWN /Sex: 1950 Female Med Rec #: [id number] Physician: Moisés Acosta Jr., MD Financial #: [id number] Pt. Type: O Room/Bed: / Admit/Disch: 02/12/21 13:00:12 - Institution: Case Times FTURO Entry 1 Patient Times In Room 02/12/21 14:17:00 Out Room 02/12/21 14:26:00 Procedure Times Start 02/12/21 14:23:00 Stop 02/12/21 14:24:00 Anesthesia Times Last Modified By: Bhavani Roldan RN 02/12/21 14:26:22 Case Attendance FTURO Entry 1 Entry 2 Entry 3 Case Attendee Moisés Acosta Jr., MD [place] [employer] PREPARER, Bhavani Walters RN Role Performed Surgeon - Primary Scrub - Primary Class A Lineman - Primary Time In 02/12/21 14:17:00 02/12/21 [...] Krueger MD, Moisés Nye, Verified (If Participants [place] MARSHALL, Guerita Pham, Applicable) Bhavani Roldan RN [...] Signatures Signed By: Bhavani Roldan RN 02/12/21 14:26K[facility]tering Health MiamisburgMain OR Preoperative Recordon 52-55-3504Oabt OR Preoperative RecordHolding Area Document Type FTURO Summary Primary Physician: Moisés Acosta Jr., MD Finalized Date/Time: 02/12/21 13:28:02 Pt. Name: STEPHANIE KAYLEIGHVero Bingham D.O.B./Sex: 1950 Female Med Rec #: [id number] Physician: Moisés Acosta Jr., MD Financial #: [id number] Pt. Type: O Room/Bed: / Admit/Disch: 02/12/21 [...] 02/12/21 13:20 Yuli MASCORRO, Bhavani Levine 02/12/21 13:28NoKindred Hospital LimaOperative Reporton 66-60-2097Sdcglqxwr ReportPatient: KAYLEIGH BROWN Age: 70 years Sex: [...] CT scan and urine studies at that time..[facility] Comment on above:Result Comment: Electronically Signed By: Dave Krueger MD, Moisés Nye\.br\Date and Time Signed: 02/12/2114:27 EDTUroVysion Fish and Urine Cyto (P4 Labs)on 19-70-4737SSUO Method of ExtractionVoidedNoKindred Hospital LimaComment on above:Performed By: #### [id number] ####[facility] [address] [place] [place], ZQ[address]SJPM Number of Lghx6Veccrev Interpretation [facility] HospitalComment on above:Performed By: #### [id number] ####[facility] [facility] [place], IW[address]XYQZ SpecimenUrineNoKindred Hospital LimaComment on above:Performed By: #### [id number] ####[facility] [place], UZ[address]QWKP Type of ServiceTechnical Only [facility] MiamisburgComment on above:Performed By: #### [id number] ####[address] [address] [facility] [place], XC[address]Fwtjk on [id number]#1.00CD:127Normal [facility] 02-12-0039Kajxgvwvi From: Margaret Downs MA To: EU - [...] fill out and fax back- will call [facility] and get a new specimen 02/12/[address] [facility]. Cx form was faxed- [facility] From: Marisol Swain To: EU - Clinical; Sent: 01/27/2021 11:43:45 EDT Show up: 02/10/2021 11:43:00 EDT Subject: CT Reminder/Recall being done at [facility] prior to 02/12/21 done, CT is in patients chart. will go over at time of Cysto 02/12/21.NormalThe Surgical Hospital At Southwoods UroVysion Fish and Urine Cyto ([facility]4 [facility])on 04-97-2888GEBHCJ & UCDiagnosis Info Invalid Interpretation [facility] HospitalComment on above:Result Comment: Gross Description Electronically signed by : on: 02/11/2021 12:26:14Performed By: #### [id number] ####[facility] [address] [place] [place], ZC[address]Yck-Eweksgmmlfnrn Formon 26-69-8524Rtl-Certification Form [id number]#1.00CD:127NoKindred Hospital LimaAmbulatory Clinical Summaryon 28-46-5022Lgvpjxuhhx Clinical Summary {6z-g2-56-2g-70-6f-29-9j-k0-85-b1-e3-0d-05-d1-00}CD:494979WgijzjXwbynsKindred Hospital LimaPatient Educationon 79-23-8410Gkwmqxa EducationUrology Hematuria, Adult Hematuria is blood in [...] these instructions at home: Medicines ? Take nuiv-ezk-chgayls and prescription medicines only as told by [...] the blood stops without treatment. ? Take wzdp-vwl-lrqukyq and prescription medicines only as told by [...] Reviewed: 11/12/2017 [employer] Patient Education ? 2019 [employer].[facility] Pre-Authorization for Medical Treatmenton 63-14-9740Pms-Authorization for Medical [id number]#1.00CD:127K[facility]tering Health MiamisburgUroVysion Fish and Urine Cyto ([facility]4 Labs)on 48-22-0264HORB Method of ExtractionVoidedKettering Health MiamisburgComment on above: Performed By: #### [id number] ####[facility] [address] [place], [place] [address]UVUC Number of Ykce0Wnrjygo Interpretation Code The [facility] Hospital At SouthwoodsComment on above:Performed By: #### [id number] ####[facility] [address] [place], [place]UVUC SpecimenUrineKettering Health MiamisburgComment on above:Performed By: #### [id number] ####[facility] [address] [facility] [place], TP[address]OUKF Type of ServiceTechnical OnlyKettering Health MiamisburgComment on above:Performed By: #### [id number] ####[facility] [address] [facility] [place] EI[address]Smurptf Office/Clinic Noteon 31-68-6535Aaawwte Office/Clinic NoteChief Complaint gross hematuria HPI Staff [...] Will order Local anesthesia. ABX sent to [facility] in [place]. Ordered: CT Abdomen/Pelvis w/ Contrast Urnls Dip Stick Auto w/o Microscopy POC 70091 Urology Procedure Order 2. Other urethral stricture, female (N35.82: Other urethral stricture, female) S/p Cysto/UD 09/21/2018. Ordered: Urology Procedure Order Orders: ciprofloxacin, 500 mg = 1 tab(s), Oral, Daily, Take 1 day prio to Cysto and 1 after Cysto completed, X 2 day(s), # 2 tab(s), Refills(s) 0, Pharmacy: [facility]/pharmacy #[id number], 175, cm, 01/27/21 10:28:00 EDT, Height/Length Dosing, 90, kg, 01/27/21 10:28:00 EDT, Weight Dosing I have reviewed the previous health record information and history for this pt. from Dr. Acosta. Follow-up With When Contact Information Dave Krueger MD, Moisés [address] Additional Instructions: Patient Education Hematuria, Adult [...] Social History Alcohol - (more content not included)...[facility] Health MiamisburgComment on above:Result Comment: Electronically Signed By: Dave Krueger MD, Moisés Nye\.br\Date and Time Signed: 01/27/2111:15 EDT\.br\Electronically Co-Signed By: Elizabet Elliott MA\.br\Date and Time Co-Signed: 01/27/21 11:06 EDTHIP LEFT 1 OR 2 VWS WITH PELVISon 55-47-7805HPL LEFT 1 OR 2 VWS WITH PELVISUnNorwalk Memorial Hospital Department of Radiology [address] [place] [address] Patient Name: KAYLEIGH BROWN : 1950 Sex: F Age: Race: White Pt. Location: Patient Status: Ordered Date: 01/02/2019 1:50:00 PM Completed Date: 01/02/2019 01:59 PM Requesting Provider: JAZMIN AVILA Attending Provider: Report Copy To: Signs & Symptoms: S72.92XD Unsp fracture of left femur, subs for clos fx w routn heal I10 History: Moore Comments: , , , Ordering Provider - [...] spine Electronically signed by:Mila Hernandez. Transcribed by: [email or web address], User Resident: Electronically Signed by: MILA HERNANDEZ @ 01/02/2019 03:46 PMNUC HealthComment on above:Order Comment: , , , Ordering Provider - JAZMIN AVILA PA-C , HIP LEFT 1 OR 2 VWS WITH PELVISon 30-95-9225UZQ LEFT 1 OR 2 VWS WITH PELVISUnNorwalk Memorial Hospital Department of Radiology [address] [place] [id number] Patient Name: KAYLEIGH BROWN : 1950 [...] in good alignment Joints: As above Right [place] hip with mild arthritis IMPRESSION: Healing left total hip revision Electronically signed by:Chuckie Harris. Transcribed by: [email or web address], User Resident: Electronically Signed by: CHUCKIE HARRIS @ 11/27/2018 10:59 [facility] HospitalComment on above:Order Comment: , , , Ordering Provider - JAZMIN AVILA PA-C , HIP LEFT 1 OR 2 VWS WITH PELVISon 79-08-4291YNW LEFT 1 OR 2 VWS WITH PELVISUnNorwalk Memorial Hospital Department of Radiology [address] [place] [phone] Patient Name: KAYLEIGH BROWN : 1950 [...] alignment Electronically signed by:Chuckie Harris. Transcribed by: [email or web address], User Resident: Electronically Signed by: CHUCKIE HARRIS @ 10/18/2018 10:38 [facility] HospitalComment on above:Order Comment: , , , Ordering Provider - JAZMIN AVILA PA-C , CBC COMPLETE BLOOD COUNTon 02-06-3998Bkipnabtagi distribution width Ratio (RBC)14.9 %Oyuwrx88.5-15.0The [facility]icothe HospitalComment on above:Order Comment: Yes: Add to Previous draw if ablePerformed By: #### [id number] #### [facility] [address] [place] [address], [facility] SERVICE UNITHematocrit Volume Fraction (Bld)26.6 %Low36.0-45.0The [facility]icothe HospitalComment on above:Order Comment: Yes: Add to Previous draw if ablePerformed By: #### [id number] #### [facility] [address] [place] [address], [facility] SERVICE UNITHemoglobin mass conc (Bld)8.5 g/dLLow12.0-15.0The [facility] HospitalComment on above:Order Comment: Yes: Add to Previous draw if ablePerformed By: #### [id number] #### [facility] [address] [place] [address], [facility] Entitic mass (RBC)29.7 xuKyarxi73.0-33.0The [facility] HospitalComment on above:Order Comment: Yes: Add to Previous draw if ablePerformed By: #### [id number] #### [facility] [address] [place] [address], [facility] CITYHC mass conc (RBC)32.0 g/zVYognmx81.0-35.0The [facility] HospitalComment on above:Order Comment: Yes: Add to Previous draw if ablePerformed By: #### [id number] #### [facility] [address] [place] [address], [facility] CITYV Entitic volume (RBC)93.0 uRYxrvkh77.0-98.0The [facility] HospitalComment on above:Order Comment: Yes: Add to Previous draw if ablePerformed By: #### [id number] #### [facility] [address] [place] [address], USANucleated RBC/100 WBC Ratio (Bld)0 %Normal0-0The [facility] HospitalComment on above:Order Comment: Yes: Add to Previous draw if ablePerformed By: #### [id number] #### [facility] [address] [place] [address], USAPLAT WDW616 10*3/kLVtxz678-547Vxa [facility] HospitalComment on above:Order Comment: Yes: Add to Previous draw if able Performed By: #### [id number] #### [facility] [address] [place] [address], USARBC #/vol (Bld)2.86 10*6/uLLow3.80-5.00The [facility] HospitalComment on above:Order Comment: Yes: Add to Previous draw if ablePerformed By: #### [id number] #### [facility] [address] [place] [address], USAWBC #/vol (Bld)5.72 10*3/uLNormal4.00-10.60The [facility] HospitalComment on above:Order Comment: Yes: Add to Previous draw if ablePerformed By: #### [id number] #### [facility] [address] [place] [address], USABASIC METABOLIC PANELon 62-66-6777Adcfrra mass conc8.9 mg/dLNormal8.6-10.3The [facility] HospitalComment on above:Order Comment: No: Do not add to previous drawPerformed By: #### [id number] #### [facility] [address] [place] [address], USAChloride molar nehy466 mmol/GIfiarm18-158Vcv [facility] HospitalComment on above:Order Comment: No: Do not add to previous drawPerformed By: #### [id number] #### [facility] [address] [place] [address], USACO2 molar conc26 mmol/RIaakzj93-19Ckj [facility] HospitalComment on above:Order Comment: No: Do not add to previous draw Performed By: #### [id number] #### [facility] [address] [place] [address], USACreatinine mass conc0.62 mg/dLNormal0.60-1.20The [facility] HospitalComment on above:Order Comment: No: Do not add to previous drawPerformed By: #### [id number] #### [facility] [address] [place] [address], USAGFR/1.73 sq M predicted among blacks MDRD vol rate/area (S/P/Bld)mL/min/{1.73_m2}Normal>60The [facility] HospitalComment on above:Order Comment: No: Do not add to previous drawPerformed By: #### [id number] #### [facility] [address] [place] [address], USAGFR/1.73 sq M predicted among non-blacks MDRD vol rate/area (S/P/Bld)mL/min/{1.73_m2}Normal>60The [facility] Comment on above:Order Comment: No: Do not add to previous drawPerformed By: #### [id number] #### [facility] [address] [place] [address], USAGlucose mass lces823 mg/lECizq72-768Umx [facility] HospitalComment on above:Order Comment: No: Do not add to previous drawPerformed By: #### [id number] #### [facility] [address] [place] [address], USAPotassium molar conc4.4 mmol/LNormal3.5-5.1The [facility] HospitalComment on above:Order Comment: No: Do not add to previous drawPerformed By: #### [id number] #### [facility] [address] [place] [address], USASodium molar obkk479 mmol/MVmlhfe624-307Tez [facility] HospitalComment on above:Order Comment: No: Do not add to previous drawPerformed By: #### [id number] #### [facility] [address] [place] [address], USAUrea nitrogen mass conc12 mg/dLNormal7-25The [facility] HospitalComment on above:Order Comment: No: Do not add to previous drawPerformed By: #### [id number] #### [facility] [address] [place] [address], [facility] UNITCBC COMPLETE BLOOD COUNTon 26-05-5321Sjxggwzgltt distribution width Ratio (RBC)14.8 %Dfqcms88.5-15.0The [facility] HospitalComment on above:Order Comment: No: Do not add to previous draw Performed By: #### [id number] #### [facility] [address] [place] [address], [facility] SERVICE UNITHematocrit Volume Fraction (Bld)27.9 %Low36.0-45.0The [facility] HospitalComment on above:Order Comment: No: Do not add to previous drawPerformed By: #### [id number] #### [facility] [address] [place] [address], [facility] UNITHemoglobin mass conc (Bld)9.1 g/dLLow12.0-15.0The [facility] HospitalComment on above:Order Comment: No: Do not add to previous drawPerformed By: #### [id number] #### [facility] [address] [place] [address], [facility] Entitic mass (RBC)29.9 swWyoleh96.0-33.0The [facility] HospitalComment on above:Order Comment: No: Do not add to previous drawPerformed By: #### [id number] #### [facility] [address] [place] [address], [facility] SERVICE UNITMCHC mass conc (RBC)32.6 g/hQEwcinn86.0-35.0The [facility] HospitalComment on above:Order Comment: No: Do not add to previous drawPerformed By: #### [id number] #### [facility] [address] [place] [address], [facility] SERVICE UNITMCV Entitic volume (RBC)91.8 qQZmndeu67.0-98.0The [facility] HospitalComment on above:Order Comment: No: Do not add to previous drawPerformed By: #### [id number] #### [facility] [address] [place] [address], USANucleated RBC/100 WBC Ratio (Bld)0 %Normal0-0The [facility] HospitalComment on above:Order Comment: No: Do not add to previous drawPerformed By: #### [id number] #### [facility] [address] [place] [address], USAPLAT VYG688 10*3/cAQygn953-213Tdk [facility] HospitalComment on above:Order Comment: No: Do not add to previous draw Performed By: #### [id number] #### [facility] [address] [place] [address], M[facility] SERVICE UNITRBC #/vol (Bld)3.04 10*6/uLLow3.80-5.00The [facility] HospitalComment on above:Order Comment: No: Do not add to previous drawPerformed By: #### [id number] #### [facility] [address] [place] [address], USAWBC #/vol (Bld)6.22 10*3/uLNormal4.00-10.60The [facility] HospitalComment on above:Order Comment: No: Do not add to previous drawPerformed By: #### [id number] #### [facility] [address] [place] [address], USABASIC METABOLIC PANELon 52-67-8536Htkjjyz mass conc8.4 mg/dLLow8.6-10.3The [facility] HospitalComment on above:Order Comment: No: Do not add to previous drawPerformed By: #### [id number] #### [facility] [address] [place] [address], USAChloride molar kfvd061 mmol/NYxtqyp59-554Dxy [facility] HospitalComment on above:Order Comment: No: Do not add to previous drawPerformed By: #### [id number] #### [facility] [address] [place] [address], USACO2 molar conc27 mmol/UMznddx41-32Sie [facility] HospitalComment on above:Order Comment: No: Do not add to previous draw Performed By: #### [id number] #### [facility] [address] [place] [address], USACreatinine mass conc0.60 mg/dLNormal0.60-1.20The [facility] HospitalComment on above:Order Comment: No: Do not add to previous drawPerformed By: #### [id number] #### [facility] [address] [place] [address], USAGFR/1.73 sq M predicted among blacks MDRD vol rate/area (S/P/Bld)mL/min/{1.73_m2}Normal>60The [facility] HospitalComment on above:Order Comment: No: Do not add to previous drawPerformed By: #### [id number] #### [facility] [address] [place] [address], USAGFR/1.73 sq M predicted among non-blacks MDRD vol rate/area (S/P/Bld)mL/min/{1.73_m2}Normal>60The [facility] Comment on above:Order Comment: No: Do not add to previous drawPerformed By: #### [id number] #### [facility] [address] [place] [address], USAGlucose mass hrhp894 mg/kYTrks18-216Jvb [facility] HospitalComment on above:Order Comment: No: Do not add to previous drawPerformed By: #### [id number] #### [facility] [address] [place] [address], USAPotassium molar conc4.2 mmol/LNormal3.5-5.1The [facility] HospitalComment on above:Order Comment: No: Do not add to previous drawPerformed By: #### [id number] #### [facility] [address] [place] [place] [address], USASodium molar lphu608 mmol/RQxr415-658Mlb [facility] HospitalComment on above:Order Comment: No: Do not add to previous drawPerformed By: #### [id number] #### [facility] [address] [facility] [place] [address], USAUrea nitrogen mass conc11 mg/dLNormal7-25The [facility] HospitalComment on above:Order Comment: No: Do not add to previous drawPerformed By: #### [id number] #### [facility] [address] [place] [place] [address], [facility] SERVICE UNITCB W/DIFFon 55-68-4929BPQ BASOPHILS0.0 10*3/uLNormal 0.0-0.2The [facility] HospitalComment on above:Performed By: #### [id number] #### [facility] [address] [place] [place] [address], M[facility]ERO SERVICE UNITABS IMM GRANS0.3 10*3/uLHigh0.0-0.2The [facility] HospitalComment on above:Performed By: #### [id number] #### [facility] [address] [place] [place] [address], USAABS NEUTROPHILS4.1 10*3/uLNormal1.6-7.6The [facility] HospitalComment on above:Performed By: #### [id number] #### [facility] [address] [place] [place] [address], USABasophils #/vol (Bld)0.5 %Normal0.0-1.0The [facility] HospitalComment on above:Performed By: #### [id number] #### [facility] [address] [facility] [place] [address], [facility] SERVICE UNITEosinophils #/vol (Bld)0.2 10*3/uLNormal0.0-0.5The [facility] HospitalComment on above:Performed By: #### [id number] #### [facility] [address] [place] [place] [address], M[facility] SERVICE UNITEosinophils/100 WBC (Bld)3.1 %Normal0.0-6.0The [facility] HospitalComment on above:Performed By: #### [id number] #### [facility] [address] [place] [address], [facility] SERVICE UNITErythrocyte distribution width Ratio (RBC)14.8 %Normal 11.5-15.0The [facility] HospitalComment on above:Performed By: #### [id number] #### [facility] [address] [place] [address], USAHematocrit Volume Fraction (Bld)24.3 %Low36.0-45.0The [facility] HospitalComment on above:Performed By: #### [id number] #### [facility] [address] [place] [address], [facility] UNITHemoglobin mass conc (Bld)7.9 g/dLLow12.0-15.0The [facility] HospitalComment on above:Performed By: #### 60511 #### [facility] [address] [place] [place] [address], M[facility] SERVICE UNITIMMATURE GRANS5.0 %High0.0-1.0The [facility] HospitalComment on above:Performed By: #### 14501 #### [facility] [address] [place] [id number], [facility] SERVICE UNITLymphocytes #/vol (Bld)0.8 10*3/uLLow1.2-4.0The [facility] HospitalComment on above:Performed By: #### [id number] #### [facility] [address] [facility] [address], [facility] SERVICE UNITLymphocytes/100 WBC (Bld)12.9 %Low20.0-45.0The [facility] HospitalComment on above:Performed By: #### [id number] #### [facility] [address] [place] [place] [address], [facility] Entitic mass (RBC)29.5 zbXzujgz17.0-33.0The [facility] HospitalComment on above:Performed By: #### [id number] #### [facility] [address] [place] [place] [address], [facility] CITYHC mass conc (RBC)32.5 g/wAFgrpva37.0-35.0The [facility] HospitalComment on above:Performed By: #### [id number] #### [facility] [address] [place] [place] [address], [facility] Entitic volume (RBC)90.7 sWYgyuqp16.0-98.0The [facility] HospitalComment on above:Performed By: #### [id number] #### [facility] [address] [place] [place] [address], [facility] SERVICE UNITMonocytes #/vol (Bld)0.6 10*3/uLNormal0.1-1.0The [facility] HospitalComment on above:Performed By: #### [id number] #### [facility] [address] [place] [place] [address], FXXXVBRP39.6 %Normal5.0-12.0The [facility] HospitalComment on above:Performed By: #### 07155 #### [facility] [address] [place] [address], USANeutrophils/100 WBC (Bld)67.9 %Ylmvoj96.0-72.0The [facility] HospitalComment on above:Performed By: #### 54577 #### [facility] [address] [place] [address], USANucleated RBC/100 WBC Ratio (Bld)0 %Normal0-0The [facility] HospitalComment on above:Performed By: #### [id number] #### [facility] [address] [place] [address], USAPLAT KIQ598 10*3/qXMeps296-168Way [facility] HospitalComment on above:Performed By: #### [id number] #### [facility] [address] [place] [address], M[facility]CALERO SERVICE UNITRBC #/vol (Bld)2.68 10*6/uLLow3.80-5.00The [facility] HospitalComment on above:Performed By: #### [id number] #### [facility] [address] [place] [address], USAWBC #/vol (Bld)6.04 10*3/uLNormal4.00-10.60The [facility] HospitalComment on above:Performed By: #### 59991 #### [facility] [address] [place] [address], USAHEMOGLOBINon 57-01-0042Ijbskypbvy mass conc (Bld)8.7 g/dL Low12.0-15.0The [facility] HospitalComment on above:Order Comment: No: Do not add to previous drawPerformed By: #### [id number] #### [facility] [address] [place] [address], USABASIC METABOLIC PANELon 81-27-3208Mmjbher mass conc8.7 mg/dLNormal8.6-10.3The [facility] HospitalComment on above:Order Comment: No: Do not add to previous drawPerformed By: #### [id number] #### [facility] [address] [address], USAChloride molar dfew012 mmol/LXjwcwn48-986Hrz [facility] HospitalComment on above:Order Comment: No: Do not add to previous drawPerformed By: #### [id number] #### [facility] [address] [place] [address], USACO2 molar conc28 mmol/FKbzzwx30-49Ovw [facility] HospitalComment on above:Order Comment: No: Do not add to previous draw Performed By: #### [id number] #### [facility] [address] [place] [address], USACreatinine mass conc0.71 mg/dLNormal0.60-1.20The [facility] HospitalComment on above:Order Comment: No: Do not add to previous drawPerformed By: #### 45993 #### [facility] [address] [place] [address], USAGFR/1.73 sq M predicted among blacks MDRD vol rate/area (S/P/Bld)mL/min/{1.73_m2}Normal>60The [facility] HospitalComment on above:Order Comment: No: Do not add to previous drawPerformed By: #### [id number] #### [facility] [address] [place] [address], USAGFR/1.73 sq M predicted among non-blacks MDRD vol rate/area (S/P/Bld)mL/min/{1.73_m2}Normal>60The [facility] Comment on above:Order Comment: No: Do not add to previous drawPerformed By: #### [id number] #### [facility] [address] [place] [address], USAGlucose mass vgyj762 mg/kEUzbx87-425Lxt [facility] HospitalComment on above:Order Comment: No: Do not add to previous drawPerformed By: #### [id number] #### [facility] [address] [place] [address], USAPotassium molar conc4.2 mmol/LNormal3.5-5.1The [facility] HospitalComment on above:Order Comment: No: Do not add to previous drawPerformed By: #### [id number] #### [facility] [address] [place] [address], USASodium molar phlc195 mmol/XOnv746-003Dbi [facility] HospitalComment on above:Order Comment: No: Do not add to previous drawPerformed By: #### [id number] #### [facility] [address] [place] [address], USAUrea nitrogen mass conc13 mg/dLNormal7-25The [facility] HospitalComment on above:Order Comment: No: Do not add to previous drawPerformed By: #### [id number] #### [facility] [address] [place] [address], USACBC COMPLETE BLOOD COUNTon 55-34-0015Ppxuughuufu distribution width Ratio (RBC)14.2 %Ctwtdr35.5-15.0The [facility] HospitalComment on above:Order Comment: No: Do not add to previous draw Performed By: #### [id number] #### [facility] [address] [place] [address], USAHematocrit Volume Fraction (Bld)19.8 %Low36.0-45.0The [facility] HospitalComment on above:Order Comment: No: Do not add to previous drawPerformed By: #### 55612 #### [facility] [address] [place] [address], USAHemoglobin mass conc (Bld)6.5 g/dLLow12.0-15.0The [facility] HospitalComment on above:Order Comment: No: Do not add to previous drawPerformed By: #### [id number] #### [facility] [address] [place] [address], [facility] Entitic mass (RBC)30.0 gaJztunq63.0-33.0The [facility] HospitalComment on above:Order Comment: No: Do not add to previous drawPerformed By: #### [id number] #### [facility] [address] [place] [address], [facility] CITYHC mass conc (RBC)32.8 g/cOEejfna36.0-35.0The [facility] HospitalComment on above:Order Comment: No: Do not add to previous drawPerformed By: #### [id number] #### [facility] [address] [place] [address], [facility] Entitic volume (RBC)91.2 oMKgmbwj38.0-98.0The [facility] HospitalComment on above:Order Comment: No: Do not add to previous drawPerformed By: #### [id number] #### [facility] [address] [place] [address], MESCALERO SERVICE UNITNucleated RBC/100 WBC Ratio (Bld)0 %Normal0-0The [facility] HospitalComment on above:Order Comment: No: Do not add to previous drawPerformed By: #### [id number] #### [facility] [address] [place] [address], USAPLAT GJG296 10*3/aRDvjv026-893Zzs [facility] HospitalComment on above:Order Comment: No: Do not add to previous draw Performed By: #### [id number] #### [facility] [address] [place] [address], MESCALERO SERVICE UNITRBC #/vol (Bld)2.17 10*6/uLLow3.80-5.00The [facility] HospitalComment on above:Order Comment: No: Do not add to previous drawPerformed By: #### [id number] #### [facility] [address] [place] [address], USAWBC #/vol (Bld)5.87 10*3/uLNormal4.00-10.60The [facility] HospitalComment on above:Order Comment: No: Do not add to previous drawPerformed By: #### [id number] #### [facility] [address] [place] [address], USAHEMOGLOBINon 26-04-5993Vpifppbopr mass conc (Bld)8.5 g/dL Low12.0-15.0The [facility] HospitalComment on above:Order Comment: No: Do not add to previous drawPerformed By: #### [id number] #### [facility] [address] [place] [address], USARBC'S 2 UNITSon 92-29-2186RZEBZMIKTJ INTERP 1CWooster Community HospitalComment on above:Order Comment: No: Do not add to previous drawPerformed By: #### [id number] #### [facility] [address] [place] [address], USACROSSMATCH INTERP 2CWooster Community HospitalComment on above:Order Comment: No: Do not add to previous draw Performed By: #### [id number] #### [facility] [address] [place] [address], USAProtein mass mxda195 g/dLNormTrinity Health System East CampusComment on above:Order Comment: No: Do not add to previous draw Performed By: #### [id number] #### [facility] [address] [place] [address], USAProtein mass concPTNoHolzer Medical Center – JacksonComment on above:Order Comment: No: Do not add to previous drawResult Comment: Result changed by IF on 10/05/2018 10:04. The previous value was XM. Result changed by IF on 10/06/2018 00:30. The previous value was IS.Performed By: #### [id number] #### [facility] [address] [place] [address], USAResult Comment: Result changed by IF on 10/05/2018 13:18. The previous value was XM. Result changed by IF on 10/06/2018 00:30. The previous value was IS.Protein mass dbji660 g/dLKettering HealthComment on above:Order Comment: No: Do not add to previous drawPerformed By: #### [id number] #### [facility] [address] [place] [address], USAUNIT ABO 1[facility] Comment on above:Order Comment: No: Do not add to previous drawPerformed By: #### [id number] #### [facility] [address] [place] [address], USAUNIT ABO 2[facility] Comment on above:Order Comment: No: Do not add to previous drawPerformed By: #### [id number] #### [facility] [address] [place] [address], USAUNIT ID [id number] Medical Center – JacksonComment on above:Order Comment: No: Do not add to previous draw Performed By: #### [id number] #### [facility] [address] [place] [address], USAUNIT ID [id number]-WAnziwkYfoAdams County Regional Medical CenterComment on above:Order Comment: No: Do not add to previous draw Performed By: #### [id number] #### [facility] [address] [place] [address], USAUNIT RH 1PosiAdams County HospitalComment on above:Order Comment: No: Do not add to previous drawPerformed By: #### [id number] #### [facility] [address] [place] [address], USAUNIT RH 2PositiveNoHolzer Medical Center – JacksonComment on above:Order Comment: No: Do not add to previous drawPerformed By: #### [id number] #### [facility] [address] [place] [address], USATYPE AND SCREENon 16-07-8923NRQ INTERPRETATIONONoHolzer Medical Center – JacksonComment on above:Performed By: #### [id number] #### [facility] [address] [place] [address], USARH INTERPRETATIONPositiveKettering HealthComment on above:Performed By: #### [id number] #### [facility] [address] [place] [address], USABASIC METABOLIC PANELon 30-03-1450Dsbates mass conc8.5 mg/dLLow8.6-10.3The [facility] HospitalComment on above:Order Comment: No: Do not add to previous drawPerformed By: #### [id number] #### [facility] [address] [place] [address], USAChloride molar ckqq122 mmol/UNginru32-310Ymn [facility] HospitalComment on above:Order Comment: No: Do not add to previous drawPerformed By: #### [id number] #### [facility] [address] [place] [address], USACO2 molar conc26 mmol/FMmtedq44-85Ake [facility]icothe HospitalComment on above:Order Comment: No: Do not add to previous draw Performed By: #### [id number] #### [facility] [address] [place] [address], USACreatinine mass conc0.63 mg/dLNormal0.60-1.20The [facility]othe HospitalComment on above:Order Comment: No: Do not add to previous drawPerformed By: #### [id number] #### [facility] [address] [place] [address], USAGFR/1.73 sq M predicted among blacks MDRD vol rate/area (S/P/Bld)mL/min/{1.73_m2}Normal>60The [facility] HospitalComment on above:Order Comment: No: Do not add to previous drawPerformed By: #### [id number] #### [facility] [address] [place] [address], USAGFR/1.73 sq M predicted among non-blacks MDRD vol rate/area (S/P/Bld)mL/min/{1.73_m2}Normal>60[facility] Comment on above:Order Comment: No: Do not add to previous drawPerformed By: #### [id number] #### [facility] [address] [place] [address], USAGlucose mass twwa843 mg/eYUxxj77-773Nau [facility] HospitalComment on above:Order Comment: No: Do not add to previous drawPerformed By: #### 43900 #### [facility] [address] [place] [address], USAPotassium molar conc4.6 mmol/LNormal3.5-5.1The [facility] HospitalComment on above:Order Comment: No: Do not add to previous drawPerformed By: #### 55587 #### [facility] [address] [place] [address], USASodium molar tcrx648 mmol/MNya672-876Cja [facility] HospitalComment on above:Order Comment: No: Do not add to previous drawPerformed By: #### 48629 #### [facility] [address] [place] [address], USAUrea nitrogen mass conc17 mg/dLNormal7-25The [facility] HospitalComment on above:Order Comment: No: Do not add to previous drawPerformed By: #### 71176 #### [facility] [address] [place] [address], USACalcium mass conc8.5 mg/dLLow8.6-10.3The [facility] HospitalComment on above:Order Comment: No: Do not add to previous drawPerformed By: #### 36404 #### [facility] [address] [place] [address], USAChloride molar khin322 mmol/BSlznni72-262Gmv [facility] HospitalComment on above:Order Comment: No: Do not add to previous drawPerformed By: #### 03386 #### [facility] [address] [place] [address], USACO2 molar conc21 mmol/QNyheth70-98Fbo [facility] HospitalComment on above:Order Comment: No: Do not add to previous draw Performed By: #### 11389 #### [facility] [address] [place] [address], USACreatinine mass conc0.55 mg/dLLow0.60-1.20The [facility] HospitalComment on above:Order Comment: No: Do not add to previous drawPerformed By: #### 81315 #### [facility] [address] [place] [address], USAGFR/1.73 sq M predicted among blacks MDRD vol rate/area (S/P/Bld)mL/min/{1.73_m2}Normal>60The [facility] HospitalComment on above:Order Comment: No: Do not add to previous drawPerformed By: #### 85151 #### [facility] [address] [place] [address], USAGFR/1.73 sq M predicted among non-blacks MDRD vol rate/area (S/P/Bld)mL/min/{1.73_m2}Normal>60[facility] Comment on above:Order Comment: No: Do not add to previous drawPerformed By: #### 57065 #### [facility] [address] [place] [address], USAGlucose mass vqry809 mg/eEOszl71-776Bik [facility] HospitalComment on above:Order Comment: No: Do not add to previous drawPerformed By: #### 32288 #### [facility] [address] [place] [address], USAPotassium molar conc4.8 mmol/LNormal3.5-5.1The [facility] HospitalComment on above:Order Comment: No: Do not add to previous drawPerformed By: #### 66439 #### [facility] [address] [place] [address], USASodium molar kcht898 mmol/NJob792-444Sbn [facility] HospitalComment on above:Order Comment: No: Do not add to previous drawPerformed By: #### 72483 #### [facility] [address] [place] [address], USAUrea nitrogen mass conc15 mg/dLNormal7-25The [facility] HospitalComment on above:Order Comment: No: Do not add to previous drawPerformed By: #### 64815 #### [facility] [address] [place] [address], USACBC COMPLETE BLOOD COUNTon 96-04-4342Gvwfxpokytv distribution width Ratio (RBC)13.9 %Itrcqm99.5-15.0The [facility] HospitalComment on above:Order Comment: No: Do not add to previous draw Performed By: #### 90690 #### [facility] [address] [place] [address], USAHematocrit Volume Fraction (Bld)25.6 %Low36.0-45.0The [facility] HospitalComment on above:Order Comment: No: Do not add to previous drawPerformed By: #### 91014 #### [facility] [address] [place] [address], USAHemoglobin mass conc (Bld)8.1 g/dLLow12.0-15.0The [facility] HospitalComment on above:Order Comment: No: Do not add to previous drawPerformed By: #### 33563 #### [facility] [address] [place] [address], [facility] Entitic mass (RBC)29.5 gmZlvtjr24.0-33.0The [facility] HospitalComment on above:Order Comment: No: Do not add to previous drawPerformed By: #### 23828 #### [facility] [address] [place] [address], [facility] CITYHC mass conc (RBC)31.6 g/dLLow32.0-35.0The [facility] HospitalComment on above:Order Comment: No: Do not add to previous drawPerformed By: #### 59978 #### [facility] [address] [facility] [place] [address], [facility] [place] CITYV Entitic volume (RBC)93.1 yKOiosje80.0-98.0The [facility] HospitalComment on above:Order Comment: No: Do not add to previous drawPerformed By: #### [id number] #### [facility] [address] [facility] [place] [address], [facility] SERVICE UNITNucleated RBC/100 WBC Ratio (Bld)0 %Normal0-0The [facility] HospitalComment on above:Order Comment: No: Do not add to previous drawPerformed By: #### 71424 #### [facility] [address] [place] [place] [address], USAPLAT HTY549 10*3/vTTlieub873-431Lwq [facility] HospitalComment on above:Order Comment: No: Do not add to previous draw Performed By: #### 78574 #### [facility] [address] [place] [address], [facility] UNITRBC #/vol (Bld)2.75 10*6/uLLow3.80-5.00The [facility] HospitalComment on above:Order Comment: No: Do not add to previous drawPerformed By: #### 23218 #### [facility] [address] [place] [address], [facility] #/vol (Bld)5.86 10*3/uLNormal4.00-10.60The [facility] HospitalComment on above:Order Comment: No: Do not add to previous drawPerformed By: #### 80122 #### [facility] [address] [place] [address], [facility]ICE UNITOperative Reporton [id number] ReportMR#: [id number] I [facility] Pt. Name: Kayleigh Brown Room #: [id number] Discharge Date: Birthdate: 1950 OPERATIVE REPORT DATE OF SURGERY: 10/02/2018 SURGEON: Pete Garcia M.D. SALES AND MERCHANDISING REPRESENTATIVE: Dr. Thornton., Dr. Harpal Azar, Dr. George Patel, Dr. Ruperto Hernandez. PREOPERATIVE DIAGNOSIS: Left hip [place] B2 periprosthetic femur fracture. POSTOPERATIVE DIAGNOSIS: Left hip [place] B2 periprosthetic femur fracture. PROCEDURE PERFORMED: 1. [...] extremity. She was subsequently diagnosed with a [place] B2 periprosthetic femur fracture at the site [...] the lateral decubitus position using the hip shaper machine hand system. All bony prominences were well padded. [...] Patel MD Date Trans: 10/03/2018 02:44 A/july DN_JN:[id number] cc: Christina Jarvis D.O. [address] [place] [address]159QbhltcXgqKettering HealthVITAMIN D 25-HYDROXYon 07-41-0579ULUBAJG D 25-OH27.7 ng/mLLow30.0-80.0The [facility] HospitalComment on above:Result Comment: >80.0 Toxicity possible Performed By: #### 13241 #### [facility] [address]*ANAEROBIC CULTUREon 10-02-2018*ANAEROBIC CULTUREClinical Report: (D) Specimen/Source: SWAB/INTRAOP SPEC Collected: 10/02/2018 17:38 Status: Final Last Updated: 10/07/2018 08:20 (1) 1.) LEFT HIP CULT RES (Final) No Anaerobes Isolated 5 DaysNoHolzer Medical Center – JacksonComment on above:Order Comment: No: Do not add to previous drawPerformed By: #### 66532 #### [facility] [address] [facility] [place] [address], [facility]*WOUND CULTUREon 10-02-2018*WOUND CULTUREClinical Report: (D) Specimen/Source: WOUND/INTRAOP SPEC Collected: 10/02/2018 17:38 Status: Final Last Updated: 10/07/2018 07:52 (1) 1.) LEFT HIP GRAM (Final) No Polys Seen No Bacteria Seen CULT RES (Final) No Growth Day 5NoHolzer Medical Center – JacksonComment on above: Order Comment: No: Do not add to previous drawPerformed By: #### 71229 #### [facility] [address] [place] [address], USABASIC METABOLIC PANELon 38-93-2119Wdkhmjb mass conc8.5 mg/dLLow8.6-10.3The [facility] HospitalComment on above:Order Comment: No: Do not add to previous drawPerformed By: #### 65516, 03398 #### [facility] [address] [place] [address], USAChloride molar sqyg391 mmol/FVrrtph33-813Rmm [facility] HospitalComment on above:Order Comment: No: Do not add to previous drawPerformed By: #### 98878, 24381 #### [facility] [address] [place] [address], USACO2 molar conc18 mmol/OHuh10-60Xjk [facility] HospitalComment on above:Order Comment: No: Do not add to previous draw Performed By: #### 31509, 21147 #### [facility] [address] [place] [address], USACreatinine mass conc0.66 mg/dLNormal0.60-1.20The [facility] HospitalComment on above:Order Comment: No: Do not add to previous drawPerformed By: #### 93342, 09130 #### [facility] [address] [place] [address], USAGFR/1.73 sq M predicted among blacks MDRD vol rate/area (S/P/Bld)mL/min/{1.73_m2}Normal>60The [facility] HospitalComment on above:Order Comment: No: Do not add to previous drawPerformed By: #### 72306, 46300 #### [facility] [address] [place] [address], USAGFR/1.73 sq M predicted among non-blacks MDRD vol rate/area (S/P/Bld)mL/min/{1.73_m2}Normal>60[facility] Comment on above:Order Comment: No: Do not add to previous drawPerformed By: #### 47136, 06442 #### [facility] [address] [place] [address], USAGlucose mass xagk688 mg/sKAczp35-519Rzf [facility] HospitalComment on above:Order Comment: No: Do not add to previous drawPerformed By: #### 26279, 87903 #### [facility] [address] [place] [address], USAPotassium molar conc4.8 mmol/LNormal3.5-5.1The [facility] HospitalComment on above:Order Comment: No: Do not add to previous drawPerformed By: #### 93002, 81402 #### [facility] [address] [place] [address], USASodium molar ghkt855 mmol/VYkv152-474Vsy [facility] HospitalComment on above:Order Comment: No: Do not add to previous drawPerformed By: #### 47809, 69312 #### [facility] [address] [place] [address], USAUrea nitrogen mass conc13 mg/dLNormal7-25The [facility] HospitalComment on above:Order Comment: No: Do not add to previous drawPerformed By: #### 52825, 71907 #### [facility] [address] [place] [address], [facility] [place] COMPLETE BLOOD COUNTon 96-30-5735Pobjgbvibfh distribution width Ratio (RBC)14.1 %Zkwqfm10.5-15.0The [facility] HospitalComment on above:Order Comment: No: Do not add to previous draw Performed By: #### 17208 #### [facility] [address] [facility] [place] [place] [address], [facility] SERVICE UNITHematocrit Volume Fraction (Bld)25.9 %Low36.0-45.0The [facility] HospitalComment on above:Order Comment: No: Do not add to previous drawPerformed By: #### 92645 #### [facility] [address] [place] [place] [address], [facility]ICE UNITHemoglobin mass conc (Bld)8.6 g/dLLow12.0-15.0The [facility] HospitalComment on above:Order Comment: No: Do not add to previous drawPerformed By: #### 42773 #### [facility] [address] [facility] [place] [address], [facility] Entitic mass (RBC)30.2 ipSgdrrk70.0-33.0The [facility] HospitalComment on above:Order Comment: No: Do not add to previous drawPerformed By: #### 90935 #### [facility] [address] [facility] [place] [place] [address], [facility] CITYHC mass conc (RBC)33.2 g/nKJazspq03.0-35.0The [facility] HospitalComment on above:Order Comment: No: Do not add to previous drawPerformed By: #### 71831 #### [facility] [address] [facility] [place] [address], [facility] [place] [facility] Entitic volume (RBC)90.9 oLHguzdw82.0-98.0The [facility] HospitalComment on above:Order Comment: No: Do not add to previous drawPerformed By: #### 19846 #### [facility] [address] [place] [address], USANucleated RBC/100 WBC Ratio (Bld)0 %Normal0-0The [facility] HospitalComment on above:Order Comment: No: Do not add to previous drawPerformed By: #### 95649 #### [facility] [address] [place] [address], USAPLAT KQX518 10*3/oEWgkpwc205-068Xls [facility] HospitalComment on above:Order Comment: No: Do not add to previous draw Performed By: #### 30986 #### [facility] [address] [place] [address], [facility] UNITRBC #/vol (Bld)2.85 10*6/uLLow3.80-5.00The [facility] HospitalComment on above:Order Comment: No: Do not add to previous drawPerformed By: #### 25731 #### [facility] [address] [place] [address], [facility]ICE UNITWBC #/vol (Bld)8.00 10*3/uLNormal4.00-10.60The [facility] HospitalComment on above:Order Comment: No: Do not add to previous drawPerformed By: #### 66596 #### [facility] [address] [place] [address], USAErythrocyte distribution width Ratio (RBC)14.2 %Normal 11.5-15.0The [facility] HospitalComment on above:Order Comment: This order is a replacement of the rejected order with accession number [id number].Performed By: #### 02199 #### [facility] [address] [place] [address], USAHematocrit Volume Fraction (Bld)27.0 %Low36.0-45.0The [facility] HospitalComment on above:Order Comment: This order is a replacement of the rejected order with accession number [id number].Performed By: #### 47509 #### [facility] [address] [facility] [place] [place] [address], [facility] SERV[facility] UNITHemoglobin mass conc (Bld)8.7 g/dLLow12.0-15.0The [facility] HospitalComment on above:Order Comment: This order is a replacement of the rejected order with accession number [id number].Performed By: #### 63697 #### [facility] [address] [facility]. [place] [address], [facility] Entitic mass (RBC)29.6 xaNvmjgl89.0-33.0The [facility] HospitalComment on above:Order Comment: This order is a replacement of the rejected order with accession number [id number].Performed By: #### 30795 #### [facility] [address] [place] [place] [address], [facility] mass conc (RBC)32.2 g/jJHwcfqg42.0-35.0The [facility] HospitalComment on above:Order Comment: This order is a replacement of the rejected order with accession number [id number].Performed By: #### 55580 #### [facility] [address] [place] [address], [facility] Entitic volume (RBC)91.8 pAShebce52.0-98.0The [facility] HospitalComment on above:Order Comment: This order is a replacement of the rejected order with accession number [id number].Performed By: #### 74464 #### [facility] [address] [place] [address], [facility]ICE UNITNucleated RBC/100 WBC Ratio (Bld)0 %Normal0-0The [facility] HospitalComment on above:Order Comment: This order is a replacement of the rejected order with accession number [id number].Performed By: #### 97508 #### [facility] [address] [place] [address], USAPLAT HFZ162 10*3/nWBkqlyd200-321Jxo [facility] HospitalComment on above:Order Comment: This order is a replacement of the rejected order with accession number [id number].Performed By: #### 02012 #### [address] [place] [address], [facility] SERVICE UNITRBC #/vol (Bld)2.94 10*6/uLLow3.80-5.00The [facility] HospitalComment on above:Order Comment: This order is a replacement of the rejected order with accession number [id number].Performed By: #### 82847 #### [place] [address], [facility] SERVICE UNITWBC #/vol (Bld)5.98 10*3/uLNormal4.00-10.60The [facility] HospitalComment on above:Order Comment: This order is a replacement of the rejected order with accession number [id number].Performed By: #### 63837 #### [place] [address], [facility] LEFT 1 OR 2 VWS WITH PELVISon 35-30-8859YYK LEFT 1 OR 2 VWS WITH PELVISUnNorwalk [facility] Department of Radiology [address] [place] [id number] Patient Name: KAYLEIGH BROWN : 1950 Sex: F Age: Race: White Pt. Location: [id number] Patient Status: I Ordered Date: 10/02/2018 7:15:00 [...] Documentation Electronically signed by:Chuckie Harris. Transcribed by: [email or web address], User Resident: Electronically Signed by: CHUCKIE HARRIS @ 10/03/2018 05:06 [facility] CenterComment on above:Order Comment: No: Do not add to previous drawPORTABLE HIP LEFT 1 OR 2 VWS WITH PELVISon 44-15-2731YAZLZQZZ HIP LEFT 1 OR 2 VWS WITH PELVISUnNorwalk Memorial Hospital Department of Radiology [address] [place] [phone] Patient Name: KAYLEIGH BROWN : 1950 Sex: F Age: Race: White Pt. 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 Transcribed by: [email or web address], User Resident: Electronically Signed by: CHUCKIE HARRIS @ 10/03/2018 10:05 AMNormalMercy Health West HospitalComment on above:Order Comment: No: Do not add to previous drawSODIUM BLOODon 28-46-3329Qzhhdg molar uobg764 mmol/VFde421-264Tex [facility] HospitalComment on above:Order Comment: No: Do not add to previous drawPerformed By: #### [id number] #### [facility] [address] [place] [address], USAVENOUS BLOOD GASon 59-04-0819SLNO EXCESS2 mmol/LNormal-2-2 The [facility] HospitalComment on above:Performed By: #### 86383 #### [facility] [address] [place] [address], USADELIVERY SYSTEMSUNKNOWN - ORNormalThe [facility] HospitalComment on above:Performed By: #### 36721 #### [facility] [address] [place] [address], USAHCO3 molar conc (Bld)27 mmol/CDmsviy00-00Nhw [facility] HospitalComment on above:Performed By: #### 66215 #### [facility] [address] [place] [address], USAOxygen ppres (Bld)35 mm[Hg]Eep26-857Pdx [facility] HospitalComment on above:Performed By: #### 49990 #### [facility] [address] [place] [address], USAOxygen saturation in Blood65.8 %Skpcxo46.0-85.0The [facility] HospitalComment on above:Performed By: #### 09611 #### [facility] [address] [place] [address], VMAYLA895 heOuRaiojk47-07Mnd [facility] HospitalComment on above:Performed By: #### 19644 #### [facility] [address] [place] [address], USApH (Bld)7.40 [pH]Normal7.33-7.43The [facility] HospitalComment on above:Performed By: #### 12009 #### [facility] [address] [place] [address], USAVITAMIN D 25-HYDROXYon 12-13-3208AWJZDQB D 25-OH27.4 ng/mL Low30.0-80.0The [facility] HospitalComment on above:Result Comment: >80.0 Toxicity possiblePerformed By: #### 19576, 59797 #### [facility] [address] [place] [address], USABASIC METABOLIC PANELon 91-70-9641Tgeotvs mass conc9.1 mg/dLNormal8.6-10.3The [facility] HospitalComment on above:Order Comment: No: Do not add to previous drawPerformed By: #### 49331 #### [facility] [address] [place] [address], USAChloride molar conc98 mmol/HXoewub75-866Ahu [facility] HospitalComment on above:Order Comment: No: Do not add to previous drawPerformed By: #### 12765 #### [facility] [address] [place] [address], USACO2 molar conc26 mmol/MEsfayn12-99Pqu [facility] HospitalComment on above:Order Comment: No: Do not add to previous draw Performed By: #### 21555 #### [facility] [address] [place] [address], USACreatinine mass conc0.66 mg/dLNormal0.60-1.20The [facility] HospitalComment on above:Order Comment: No: Do not add to previous drawPerformed By: #### 86934 #### [facility] [address] [place] [address], USAGFR/1.73 sq M predicted among blacks MDRD vol rate/area (S/P/Bld)mL/min/{1.73_m2}Normal>60The [facility] HospitalComment on above:Order Comment: No: Do not add to previous drawPerformed By: #### 59858 #### [facility] [address] [place] [address], USAGFR/1.73 sq M predicted among non-blacks MDRD vol rate/area (S/P/Bld)mL/min/{1.73_m2}Normal>60The [facility] Comment on above:Order Comment: No: Do not add to previous drawPerformed By: #### 96632 #### [facility] [address] [place] [address], USAGlucose mass znls632 mg/wPExgd76-985Ets [facility] HospitalComment on above:Order Comment: No: Do not add to previous drawPerformed By: #### 30822 #### [facility] [address] [place] [address], USAPotassium molar conc4.2 mmol/LNormal3.5-5.1The [facility] HospitalComment on above:Order Comment: No: Do not add to previous drawPerformed By: #### 94365 #### [facility] [address] [place] [address], USASodium molar nfoi428 mmol/QKmp180-846Fzq [facility] HospitalComment on above:Order Comment: No: Do not add to previous drawPerformed By: #### 67181 #### [facility] [address] [place] [address], USAUrea nitrogen mass conc13 mg/dLNormal7-25The [facility] HospitalComment on above:Order Comment: No: Do not add to previous drawPerformed By: #### 02328 #### [facility] [address] [facility] [place] [address], [facility] UNITCBC COMPLETE BLOOD COUNTon 16-66-1679Aiubfdcdefp distribution width Ratio (RBC)14.2 %Shlqyl62.5-15.0The [facility] HospitalComment on above:Order Comment: No: Do not add to previous draw Performed By: #### 73110 #### [facility] [address] [place] [address], [facility] UNITHematocrit Volume Fraction (Bld)26.7 %Low36.0-45.0The [facility] HospitalComment on above:Order Comment: No: Do not add to previous drawPerformed By: #### 32346 #### [facility] [address] [address], USAHemoglobin mass conc (Bld)8.7 g/dLLow12.0-15.0The [facility] HospitalComment on above:Order Comment: No: Do not add to previous drawPerformed By: #### 24799 #### [facility] [address] [place] [address], [facility] Entitic mass (RBC)30.2 qaBqsmzf75.0-33.0The [facility] HospitalComment on above:Order Comment: No: Do not add to previous drawPerformed By: #### 62114 #### [facility] [address] [place] [address], [facility] [place] mass conc (RBC)32.6 g/vSYgoarw69.0-35.0The [facility] HospitalComment on above:Order Comment: No: Do not add to previous drawPerformed By: #### 33249 #### [facility] [address] [place] [address], [facility] Entitic volume (RBC)92.7 qOCkvssw57.0-98.0The [facility] HospitalComment on above:Order Comment: No: Do not add to previous drawPerformed By: #### [id number] #### [facility] [address] [place] [address], [facility] UNITNucleated RBC/100 WBC Ratio (Bld)0 %Normal0-0The [facility] HospitalComment on above:Order Comment: No: Do not add to previous drawPerformed By: #### [id number] #### [facility] [address] [place] [address], [facility] UNITPLAT [id number] 10*3/[id number] [facility] HospitalComment on above:Order Comment: No: Do not add to previous draw Performed By: #### [id number] #### [facility] [address] [place] [address], MESCALERO SERVICE UNITRBC #/vol (Bld)2.88 10*6/uLLow3.80-5.00The [facility]illicothe HospitalComment on above:Order Comment: No: Do not add to previous drawPerformed By: #### [id number] #### [facility] [address] [place] [address], M[facility]CALERO SERVICE UNITWBC #/vol (Bld)6.63 10*3/uLNormal4.00-10.60The [facility]illicothe HospitalComment on above:Order Comment: No: Do not add to previous drawPerformed By: #### [id number] #### [address] [address], USACT LOWER EXTREMITY WO CONTRAST LEFTon 67-17-4336QO LOWER EXTREMITY WO CONTRAST LEFTUnNorwalk Memorial Hospital Department of Radiology [address] [place] [id number] Patient Name: KAYLEIGH BROWN : 1950 Sex: F Age: Race: White Pt. Location: [id number] Patient Status: I Ordered Date: 10/01/2018 4:45:00 [...] stem. Electronically signed by:Chuckie Harris. Transcribed by: [email or web address], User Resident: Electronically Signed by: CHUCKIE HARRIS @ 10/02/2018 09:09 [facility] HospitalComment on above:Order Comment: R/O Fractures, CT scan of entire femur for preop evaluationFEMUR LEFT 2 [facility] 21-77-7926YSLIF LEFT 2 [facility] Department of Radiology [address] [place] [id number] Patient Name: KAYLEIGH BROWN : 1950 Sex: F Age: Race: White Pt. Location: [id number] Patient Status: I Ordered Date: 10/01/2018 3:55:00 [...] CT Electronically signed by:Chuckie Harris. Transcribed by: [email or web address], User Resident: Electronically Signed by: CHUCKIE HARRIS @ 10/02/2018 09:33 AMNormalThe Chillicothe HospitalComment on above:Order Comment: R/O FXPROTHROMBIN TIMEon 04-75-5642WZY Coag RelTime (PPP)1.12 {INR}Normal0.91-1.16The [facility]illicothe HospitalComment on above:Order Comment: No: Do not [...] OPTIMAL THERAPEUTIC RANGE. CHEST 1995;108:231S-246S.Performed By: #### [id number] #### [facility] [address] [place] [address], MESCALERO SERVICE UNITProthrombin time (PT) Coag time (PPP)14.4 kUdmtmb37.3-14.8 The [facility]illicothe HospitalComment on above:Order Comment: No: Do not add to previous drawResult Comment: ALL RESULTS MUST BE INTERPRETED WITH RESPECT TO BLOOD DRAWING ARTIFACT OR DILUTION ERROR OF ANTICOAGULANT AT THE TIME OF SAMPLING.Performed By: #### [id number] #### [facility] [address] [place] [address], USARBC'S 2 UNITSon 85-32-0887SKLKTXPMCQ INTERP 1CWooster Community HospitalComment on above:Performed By: #### [id number] #### [facility] [address] [address], MESCALERO SERVICE UNITCROSSMATCH INTERP 2CWooster Community HospitalComment on above:Performed By: #### [id number] #### [facility] [address] [place] [address], M[facility]ERO SERVICE UNITProtein mass wfxx624 g/dLNoHolzer Medical Center – JacksonComment on above:Performed By: #### [id number] #### [facility] [address] [address], M[facility]ERO SERVICE UNITProtein mass concRENoHolzer Medical Center – JacksonComment on above:Result Comment: Result changed by IF on 10/02/2018 16:58. The previous value was XM. Result changed by IF on 10/02/2018 21:55. The previous value was IS. Result changed by IF on 10/05/2018 06:35. The previous value was XM.Performed By: #### [id number] #### [facility] [address] [place] [address], USAUNIT ABO 1[facility] Comment on above:Performed By: #### [id number] #### [facility] [address] [place] [address], USAUNIT ABO 2[facility] Comment on above:Performed By: #### [id number] #### [facility] [address] [place] [address], USAUNIT ID [id number] HealthComment on above:Performed By: #### [id number] #### [facility] [address] [place] [address], USAUNIT ID [id number] HealthComment on above:Performed By: #### [id number] #### [facility] [address] [place] [address], USAUNIT RH 1PosiAdams County HospitalComment on above:Performed By: #### [id number] #### [facility] [address] [place] [address], USAUNIT RH 2PositiveKettering HealthComment on above:Performed By: #### [id number] #### [facility] [address] [place] [address], USATYPE AND SCREENon 76-93-1665MJX INTERPRETATIONFulton County Health CenterComment on above:Performed By: #### [id number] #### [facility] [address] [place] [address], USARH INTERPRETATIONPositiveKettering HealthComment on above:Performed By: #### [id number] #### [facility] Vital Signs Date TimeVital SignValuePerforming ZnzykueikTftnsamp07-51-4546 09:04-0400Body dxeuia005.72 cmDaifeanyi Jarvis DO Work Phone: [facility]08-20-2025 09:04-0400 Body mass index (BMI) [Ratio]31.3 kg/c9Cabviifeanyi Jarvis DO Work Phone: [phone]80[facility]08-20-2025 09:04-0400 Body ktvdiexsdwm43 [degF]Christina Jarvis DO Work Phone: [phone]08-20-2025 09:04-0400 Body .44 kgDaifeanyi Lockwoodzac DO Work Phone: [phone]18[facility]08-20-2025 09:04-0400 Diastolic blood nenangyr95 mm[Hg]Christina Jarvis DO Work Phone: [phone]67[facility]08-20-2025 09:04-0400 Heart rate83 /minDavikaron Jamila DO Work Phone: [phone]08-20-2025 09:04-0400 SaO2% (BldA) [Mass fraction]98 %Christina Jarvis DO Work Phone: [phone]08-20-2025 09:04-0400 Systolic blood molnfiep507 mm[Hg]Christina Jarvis DO Work Phone: [phone]11-08-2024 11:55-0500 Body .72 cmU[facility] Health11-08-2024 11:55-0500Body mass index (BMI) [Ratio]33.5 kg/o1AshopshtbUc Health11-08-2024 11:55-0500Body cdnqyosiglh50.6 [degF][facility]11-08-2024 11:55-0500Body vhhyzu941.01 kgUc Health11-08-2024 11:55-0500Diastolic blood ziiekukr24 mm[Hg][facility] 08-31-2024 11:55-0500Heart rate89 /[facility] 08-31-2024 11:55-0500Respiratory rate16 /[facility] 08-31-2024 11:55-7786RdF9% (BldA) [Mass fraction]97 %[facility]11-08-2024 11:55-0500Systolic blood wgicomyn202 mm[Hg][facility]08-05-2024 14:42-0400Body svsoii732.41 cmDO Christina Jarvis Work Phone: [phone]08-05-2024 14:42-0400 Body mass index (BMI) [Ratio]46.3 kg/m2DO Christina Jarvis Work Phone: [phone] [address]08-05-2024 14:42-0400 Body xfbqiinqahm88 [degF]DO Christina Jarvis Work Phone: [phone]08-05-2024 14:42-0400 Body .97 kgDO Christina Jarvis Work Phone: [phone]08-05-2024 14:42-0400 Diastolic blood mpfjnqty44 mm[Hg]DO Christina Jarvis Work Phone: [phone]08-05-2024 14:42-0400 Heart rate94 /Yvette Jarvis Work Phone: [phone]08-05-2024 14:42-0400 Respiratory rate18 /Yvette Jarvis Work Phone: [phone]08-05-2024 14:42-0400 SaO2% (BldA) [Mass fraction]95 %DO Christina Jarvis Work Phone: [phone]08-05-2024 14:42-0400 Systolic blood hxazuqtn369 mm[Hg]DO Christina Jarvis Work Phone: [phone]03-18-2022 11:30-0400 Body hmoaqu429.26 cmDaifeanyi Jarvis Other [employer] Other 03-18-2022 11:30-0400Body mass index (BMI) [Ratio] 32.63 kg/n5MetdkChristina Jarvis Other [employer] Other 03-18-2022 11:30-0400Body uyiuvzlvtjz00.6 [degF]Christina Jarvis Other [employer] Other 03-18-2022 11:30-0400Body iymbcl655.25 kgChristina Jarvis Other [employer] Other 03-18-2022 11:30-0400Diastolic blood eefwrvjj77 mm[Hg] Christina Jarvis Other [employer] Other 03-18-2022 11:30-0400Respiratory rate18 /minDzaheer Jarvis Other [employer] Other 03-18-2022 11:30-8356DwJ2% (BldA) [Mass fraction]98 % Christina Jarvis Other [employer] Other 03-18-2022 11:30-0400Systolic blood fwlpnoai307 mm[Hg] Christina Jarvis Other [employer] Other Encounters Encounter DateEncounter TypeCare ProviderFacilityStart: 60-58-6656ajpkzidrgm Christina JarvisFacility:[facility] Hospitaltart: 06-12-2025 End: 93-05-5819qwlinrttlpFiuvx Girvin DO Work Phone: [facility] Work Phone: Start: 06-12-2025 End: 98-67-9410Cjffevg encounter procedureDaifeanyi Jarvis DO-[facility] Work Phone: Start: 06-10-2025 End: 65-61-8634Oldtdzo encounter procedureDaifeanyi Jarvis DO-[facility] [place] Work Phone: Start: 06-10-2025 End: 85-41-7889saifqzotaiBxzoo Girvin DO Work Phone: [facility] Work Phone: Start: 08-31-2024 End: 37-16-3411ckfgxhfbsmHsiafqjhp [facility] Work Phone: Start: 08-31-2024 End: 28-07-2322Basynbp encounter procedureC[facility] Work Phone: Start: 05-28-2024 End: 03-50-9080gqcmnplvthDP Christina Jarvis Work Phone: [facility] Work Phone: Start: 05-28-2024 End: 70-67-6808Wmnmcmi encounter procedureDO Christina Jarvis Work Phone: [facility] [place] Work Phone: Start: 05-24-2024 End: 80-58-9753yhvtfttuplRD David Girvin Work Phone: [facility] Work Phone: Start: 05-24-2024 End: 11-12-5381Fmhgbuq encounter procedureDO Christina Jarvis Work Phone: [facility] [place] Work Phone: Start: 83-21-4374Jem-patient / Non-visitDO Christina Jarvis Work Phone: [facility] Work Phone: Start: 05-18-2023 End: 10-70-2600mgyfitogqvMnkak Girvin Other [employer] Other Start: 96-23-3049Fgflojhgo encounterDaifeanyi [facility] [place]vueStart: 02-04-2023 End: 46-52-8609zqyclvodvgVT David Jamila Work Phone: [facility] Work Phone: Start: 02-04-2023 End: 49-68-4882Pcthkto encounter procedureDO Christina Jarvis Work Phone: [facility] [place] Work Phone: Start: 01-28-2023 End: 20-44-7166uckgjlmojfEmdho Girvin Other [employer] Other Start: 27-53-9918Qhaealzzo encounterDavikaron Cole [facility] BellevueStart: 12-22-2022 End: 29-30-2381rledmqprheSM MARY MAY .Facility:Q7Ncnej: 10-11-2022 End: 22-45-4520dckcupomgkUcggx Girvin Other [employer] Other Start: 16-18-8970Lfjuwqvry encounterDavikaron Cole [facility] BellevueStart: 09-29-2022 End: 59-29-2972uxdyzludopUmvwb Girvin Other [employer] Other Start: 35-50-1494Gwzxzkpqf encounterDavikaron CunninghamG [facility] BellevueStart: 01-08-2022 End: 39-50-1275rfqlvzrcibPfamg Girvin Other no[employer] Other Start: 23-85-8623Sbhqio outpatient visit 25 minutes Christina Cole [facility] [place]vueStart: 01-02-2019 End: 43-19-1452Bzhzxsw encounter procedureGREGORY OTTOFacility:[facility]tart: 11-27-2018 End: 63-28-3935Lpmxdao encounter procedureGREGORY OTTOFacility:[facility]tart: 10-18-2018 End: 97-87-9798Nawtrku encounter procedureGREGORY OTTOFacility:[facility]tart: 10-01-2018 End: 75-11-5848Zmcvdgfvxr and management of inpatientNABIL EBRAHEIMFacility:[facility] Procedures DateProcedureProcedure DetailPerforming ClinicianStart: 35-62-1073Zdpwm culture Christina Jarvis Work Phone: Start: 54-44-3192Qsubvgiu screenNABIL EBRAHEIMComment on above:Performed By: #### [id number] #### [facility] [address] [place] [address], USAStart: 22-08-6160VEPUJUV OF SYNTH SUB FROM L HIP JT, FEMORAL, OPEN APPROACHNABIL EBRAHEIMStart: 20-81-8913NZQDBKD L HIP JT, FEMORAL W METAL, UNCEMENT, OPENNABIL EBRAHEIMStart: 14-93-9467WJDERKDWRJ LEFT FEMORAL SHAFT WITH INT FIX, OPEN APPROACHNABIL EBRAHEIMStart: 27-06-9081Ymzpxxuo screen PETE EBRAHEIMComment on above:Performed By: #### [id number] #### [facility] [address] [place] [address], USAStart: 21-87-3814LTWPVFTWO NONAUT RED BLOOD CELLS IN PERIPH VEIN, PERCNABIL EBRAHEIM Plan of Treatment DateCare ActivityDetailAuthorStart: 04-00-7824Ipbturdm identified in Urine by CultureUrine [facility] Hospitaltart: 21-57-9538Gozmo [facility] Hospitaltart: 93-11-0802Cxcncixu identified in Urine by [facility] Hospitaltart: 85-22-4725Bpfqtlpn identified in Urine by [facility] CenterBacteria identified in Urine by [facility] Medical CenterComprehensive metabolic 1999 panel - Serum or PlasmaUc Health Comprehensive metabolic 2000 panel - Serum or PlasmaUc HealthGlucose measurement estimated from glycated hemoglobinUc HealthGlucose measurement estimated from glycated hemoglobinUc HealthGlucose measurement estimated from glycated hemoglobin Uc HealthHemoglobin A1c/Hemoglobin.total in Blood Uc HealthHemoglobin A1c/Hemoglobin.total in Blood Uc HealthUrine cultureRady Children's Hospital Immunizations Immunization DateImmunizationNotesCare SgdklzjrIqzmjdva66-96-9039XNKAM-61 Comirnaty (Pfizer) Tri-Sucrose 12+[facility]10-22-2024 influenza, high dose seasonal, preservative-freeUc Health01-04-2024RSV, preF3, adj, pfUc Health10-02-2023 COVID-19 (PFIZER) 12Y and olderU[facility] Health 74-61-3115Xywexvprp vaccine, quadrivalent, adjuvantedUc Health09-22-2022COVID-19 mRNA Bivalent Booster (Pfizer)[facility]09-22-2022Fluzone QIV High-Dose 65YR+[facility]03-18-2022Shingrix 50 MCG/0.5ML; Translations: [Shingrix 50 MCG/0.5ML] Christina Jarvis Other [employer] Other [id number]-86 Vaccine Pfizer - Documentation Purposes OnlyChristina Jarvis Other [facility]09-20-2021influenza, seasonal, injectableDaifeanyi Jarvis Other [facility]09-20-2021Fluzone QIV High-Dose 65YR+[facility]02-23-2021COVID-19 Vaccine Pfizer - Documentation Purposes OnlyChristina Jarvis Other [facility]02-02-2021COVID-19 Vaccine Pfizer - Documentation Purposes OnlyChristina Jarvis Other [address] [place], [place] 9269409-17-2020Seasonal trivalent influenza vaccine, adjuvanted, preservative [facility]09-17-2020influenza, seasonal, injectableDavid Girvin Other [address] [place], [place] 9269410-09-2019influenza, seasonal, injectableDavid Girvin Other [address] [place], [place] 9269410-09-2019influenza, high dose seasonal, preservativeSycamore Medical Center10-17-2018 influenza, high dose seasonal, preservativeSycamore Medical Center10-17-2018influenza, seasonal, injectableDavid Girvin Other [address] [place], [place] 9269410-13-2017influenza, high dose seasonal, preservativeSycamore Medical Center11-07-2016 influenza, seasonal, injectableDavid Girvin Other [address] [place], [place] 9269411-04-2016 pneumococcal conjugate vaccine, 13 valentDavid Girvin Other [address] [place], [place] 9269410-20-2015 pneumococcal polysaccharide vaccine, 23 valentDavid Girvin Other [address] [place], [place] 9269410-03-2014zoster vaccine, liveDavid Girvin Other [address] [place] [address] Payers DatePayer CategoryPayerPolicy [id number] [id number] .[id number] Health PemhxstjbKVVDYTPI22-76-4065Ytzbipx [id number] .1.937138.3.57[id number] .1.109027.3.57[id number] 2.0.1.514121.3.57[id number] 2.0.1.122514.3.57[id number] 2.0.1.19[id number] [id number] 2.0.1.8[id number] 2.0.1.261544.3.579.2.531 Social History DateTypeDetailFacilityUnknown if ever smokedWinchester Cardoc Other Sex Assigned At BirthSex Assigned At AudigenceWinchester [facility]oc Other Start: 71-17-9951Tcb Assigned At [facility] Hospitaltart: 02-07-2023 End: 40-04-7759Uialonl smoking status NHISNever smoked tobacco (finding) [facility] Hospitaltart: 03-33-9927OlvIulnza (finding)[facility] Clinical Notes 02-12-2021 to 05-18-2023 Note Date & YcxyYwbdDvfddfsu67-86-0194 Evaluation note* Encounter Date Diagnosis Assessment Notes Treatment Notes Treatment Clinical Notes Apr, Gastritis (ICD-10 - K29.70) [facility] [facility] Other [id number] Evaluation note* Encounter Date Diagnosis Assessment Notes Treatment Notes Treatment Clinical Notes Jan, Hypertension (ICD-10 - I10) Jan,Hyperlipidemia (ICD-10 - E78.5) Jan,Hyperglycemia (ICD-10 - R73.9) Jan,Weight loss (ICD-10 - R63.4) Jan,Hematuria (ICD-10 - R31.9) Jan,Other penitentiary (current) drug therapy (ICD-10 - Z79.899) [employer] Other 03-18-2022 Evaluation note* Encounter Date Diagnosis [...] is 2.16 which is normal. 18 Dec,2Other ocean transportation intermediary (current) drug therapy (ICD-10 - Z79.899) 18 Dec,ther She will be having cataract surgery with Dr. Thornton. I did recommend that she get the Shingrix vaccine series. She can obtain this at her local pharmacy. A prescription was provided. [facility] Other 322845-88-7653 Note [id number]#1.00CD:127[facility] 02-12-2021 NoteCystoscopy ? Voiding after the procedure: [...] if you have a fever over 100 degrees.[facility] Evaluation noteNo InformationNortAllegheny General Hospital [employer] Other Evaluation noteNo assessment information available [facility] Work Phone: Evaluation note* Diagnosis Onset Date Resolution Status Depression acuteGastritisacuteHematuriaacuteHyperglycemiaacuteHyperlipidemiaacute Hypertensionacute [facility] Work Phone: Evaluation note* Diagnosis Onset Date Resolution Status Admit Date Balance problem acuteAugust 2024 9:14amDepressionacuteAugust 2024 9:14amGastritis acuteAugust 2024 9:14amHematuriaacuteAugust 2024 9:14amHyperglycemia acuteAugust 2024 9:14amHyperlipidemiaacuteAugust 2024 9:14am HypertensionacuteAugust 2024 9:14amIntentional weight lossacuteAugust 2024 9:14am [facility] Work Phone: History general Narrative - Reported* Type Description Date Medical History Last Pap 2010; Dr. Gonsalez Medical HistoryLast Mammogram ; [facility] (normal)Medical History No history of Stress Test, Colonoscopy or CT of the Abdomen or PelvisMedical HistoryLast EKG around age 19 before surgeryMedical HistoryNo history of FracturesMedical HistoryHistory of Chicken Pox as a ChildMedical History Mammogram 08-15-13; [facility]Medical HistoryFlu Vaccine and Pneumonia Vaccine 2014Medical HistoryPt has O positive bloodSurgical HistoryT & A as a childSurgical Historybilateral breast biopsies; all were benignSurgical HistoryLeft knee replacement, Dr. RandallXnqvquig32-9-7482Pymmfffn Historyrt knee replacement Dr Randall02/12/16urgical HistoryMRI of back - Dr HolbrookGrguvwp5286 Surgical HistoryXR of hip - Dr RandallIeozvxai3059Akywjayl HistoryPain clinic - injection left aed8438Hbvtezsg Historymammogram -08/2016Surgical Historyhip inj Dr Randall/2017Surgical Historymammogram01/2018Surgical HistoryCT with contrast 08/24/18urgical Historyleft hip qkhszozutkc15/5/2018Surgical Historyfemur fracture /8/2018Surgical HistoryCystoscopy - Dr. Acosta02/12/21 Hospitalization Historysee above [employer] Other History general Narrative - Reported* Type Description Date Medical History Last Pap 2010; Dr. Gonsalez Medical HistoryLast Mammogram ; [facility] (normal)Medical History No history of Stress Test, Colonoscopy or CT of the Abdomen or PelvisMedical HistoryLast EKG around age 19 before surgeryMedical HistoryNo history of FracturesMedical HistoryHistory of Chicken Pox as a ChildMedical History Mammogram 08-15-13; [facility]Medical HistoryFlu Vaccine and Pneumonia Vaccine 2014Medical HistoryPt has O positive bloodSurgical HistoryT & A as a childSurgical Historybilateral breast biopsies; all were benignSurgical HistoryLeft knee replacement, Dr. RandallFnvvxkab37-0-9230Ketmwauf Historyrt knee replacement Dr Randall02/12/16urgical HistoryMRI of back - Dr HolbrookZibcvcz0338 Surgical HistoryXR of hip - Dr RandallVqcuuvcm7843Zwkrhtck HistoryPain clinic - injection left jhj4104Mjnmigbe Historymammogram -08/2016Surgical Historyhip inj Dr Randall10/2017Surgical Historymammogram01/2018Surgical HistoryCT with contrast 08/24/18urgical Historyleft hip kfczzcinodt58/5/2018Surgical Historyfemur fracture /8/2018Surgical HistoryCystoscopy - Dr. Acosta02/12/21Surgical HistoryCatartact surgeryurgical HistoryColonoscopy (colon polyp) & EGD Dr. May / see report/ repeat colonoscopy 5 years 21398-0-65Stunbfihvhxcapp Historysee above [employer] Other Reason for referral (narrative)* Reason appt referral for colonoscopy/positive FIT Diagnosis 1 Positive occult stoo l blood test (R19.5) Referral Organization [facility] Referring Provider First Name Christina Referring Provider Last Name Jamila Referring Provider Specialty Family Prac alban Referred Organization [facility] Referred Provider Polo Lyn Referred Address [address],[address] Referred Provider Specialty Gastroentero logy Referral Priority Routine General Notes Mary Ann Maurer 09/29/2022 03:45:56 PM > referral sent p2p. pt understands that she will be contacted to schedule this appt. [facility] Other Reason for referral (narrative)No reason for referral information availableSelect [facility] Special[facility], [facility] Work Phone: Summary Purpose Family History No [...] 023 8:27am Hospital Course Note MR#: [id number] [facility] Pt. Name: Kayleigh Brown Admitted: 10/01/2018 Discharged: [...] and content) DATE CREATED AUTHOR 01/10/2019 [facility] DATE CREATED AUTHOR AUTHOR'S ORGANIZ ATION 03/16/2021 [facility] DATE CREATED AUTHOR AUTHOR'S ORGANIZ ATION 12/31/2022 [facility] DATE CREATED AUTHOR AUTHOR'S ORGANIZ ATION 08/24/2025 [facility] REASON FOR VISIT (unrecogniz ed [...] BE BASED ON THE PRIMARY CLINICAL RECORDS. [employer] provides no warranty or guarantee of the accuracy or completeness of information in this document.
[2025-08-25] MEDS: BUSPIRONE HCL 15 MG TABLET PO (22:09)
[2025-08-25] MEDS: 0.9 % SODIUM CHLORIDE 1,000 ML 200 ML IV (22:10)
[2025-08-25] MEDS: DIGOXIN 500 MCG/2 ML AMPUL 125 MCG IV (22:20)
[2025-08-26] VITALS (111 sets, daily range): BP systolic 105–147; BP diastolic 54–83; PULSE 57–104; TEMP 36.4–36.7; O2SAT 84–97
[2025-08-26] MEDS: ENOXAPARIN SODIUM 100 MG/ML SYRINGE 90 MG SUBQ (04:33)
[2025-08-26 06:13] LABS: Hematocrit 40.3 % (36.0-48.0); Hemoglobin 12.8 g/dL (12.0-16.0); Immature Granulocytes Abs Auto 0.01 10^3/uL (0.00-0.03); Immature Granulocytes Pct Auto 0.1 % (0.0-0.5); Lymphocytes Absolute Auto 1.9 10^3/uL (1.2-3.8); Mean Corpuscular HGB Conc 31.8 g/dL (29.9-35.2); Mean Corpuscular Hemoglobin 29.6 pg (26.7-34.0); Mean Corpuscular Volume 93.1 fL (81.0-99.0); Platelet Count 300 10^3/uL (150-450); Red Blood Count 4.33 10^6/uL (4.20-5.40); White Blood Count 6.7 10^3/uL (4.0-11.0)
[2025-08-26 06:38] LABS: Anion Gap 13.1; Blood Urea Nitrogen 10.0 mg/dL (7.0-18.0); Calcium 9.5 mg/dL (8.5-10.1); Carbon Dioxide 23.9 mmol/L (21.0-32.0); Chloride 108 mmol/L (98-107); Estimated GFR (African America >60 (>=60 mL/min/1.73m^2); Estimated GFR (Non-African Ame >60 (>=60 mL/min/1.73m^2); Glucose 99 mg/dL (74-106); Potassium 4.0 mmol/L (3.5-5.1); Sodium 141 mmol/L (136-145); TSH W/ REFLEX FT4 2.704 uIU/mL (0.358-3.740)
--- NOTE | 2025-08-26 07:13 | ECG_ITS ---
[facility] Test Date: 2025-08-26 Pat Name: JANELLE BROWN Department: Room: [facility] Gender: Female [employer]aker [place]: : 1950 Requested By: [id number] Order Number: [id number] Reading MD: ROSA HASSAN M.D. Measurements Intervals [place] Rate: 70 P: 25 FL: 138 QRS: 5 QRSD: 86 T: -1 QT: 406 QTc: 427 Interpretive Statements 1100 Sinus rhythm 1470 with occasional supraventricular premature complexes 5222 Moderate voltage criteria for LVH, may be normal variant 8102 Low QRS voltage in chest leads 9140 abnormal rhythm ECG Compared to ECG 08/26/2025 05:26:10 Left ventricular hypertrophy now present Low QRS voltage now present Atrial fibrillation no longer present ST (T wave) deviation no longer present Electronically Signed On 08-26-2025 12:47:08 EST by ROSA HASSAN M.D.
--- NOTE | 2025-08-26 07:55 | CM.NOTE ---
Rounds made with Dr. Bonilla, cardiology will see pt today for further recommendations. Possible discharge to home after consult. Pt back in NSR at this time.
[2025-08-26] MEDS: PANTOPRAZOLE SODIUM 40 MG TABLET.DR PO (08:06)
[2025-08-26] MEDS: BUSPIRONE HCL 15 MG TABLET PO ×2 (08:06→21:23)
[2025-08-26] MEDS: VENLAFAXINE HCL ER 150 MG CAPSULE PO (08:06)
[2025-08-26] MEDS: RIVAROXABAN 10 MG TABLET 20 MG PO (08:06)
[2025-08-26] MEDS: METOPROLOL TARTRATE 25 MG TABLET PO (08:06)
[2025-08-26] MEDS: VENLAFAXINE HCL ER 75 MG CAPSULE PO (08:06)
--- NOTE | 2025-08-26 08:30 | PM.DS1 ---
DS: Providers Provider Date of admission: 08/25/25 19:53 Primary care physician: CHRISTINA JARVIS Consults: 08/25/25 19:05 Consult to Cardiology Routine Reason for consultation: New A-Fib with RVR DS: Diagnosis Discharge Diagnosis (1) Atrial fibrillation with rapid ventricular response: Plan As listed above and below and others that are not listed DS: Summary Hospital Course Hospital Course: Mrs. Martínez is a 75-year-old female who came in with palpitation. She was found to have A-fib with RVR. A-fib with RVR. Patient was started on Cardizem drip. Patient was started on anticoagulation due to elevated [id number] score. Patient converted to sinus rhythm today. Patient will be seen by cardiology team. Echocardiogram is pending to rule out cardiomyopathy or valvular disease. Likely patient will be discharged home on Toprol XL 50 mg daily and Xarelto 20 mg daily. Defer further needed diagnostic and therapeutic interventions and the timing of these interventions to cardiology team. ST depression when heart rate was 175. Elevated troponin secondary to tachycardia. Patient may have underlying CAD but no clinical evidence to suggest ACS at this time. Patient is chest pain-free Patient was started on beta-param. Patient was started on Xarelto. Patient will be started on baby aspirin CAD evaluation would need to be completed. Echocardiogram is pending to see if patient has any cardiomyopathy or valvular disease The type and timing of ischemic evaluation will be addressed by cardiology team. Hypertension With the initiation of Toprol XL 50 mg daily I would asked patient to reduce her losartan down to 25 mg daily. Additional adjustment may be needed to keep her systolic between 135 and 145 Hyperlipidemia Continue statin Depression and anxiety Continue BuSpar and venlafaxine Patient has few medical issues as listed above and others that are not listed. All appear to be stable. Patient is feeling great. Pending echocardiogram, cardiology evaluation and recommendation, I would not have any clear or strong clinical justification to extend inpatient hospitalization. Patient however will require close and frequent monitoring as well as additional work-up, investigation and therapeutic intervention that could take place from this point on post discharge. That is to prevent relapse, decompensation, rehospitalization and other medical implications.. I instructed patient to ask her primary care doctor to obtain [facility] record entirely to address abnormalities seen on labs and imaging that I have and have not addressed during this hospitalization, follow-up on pending blood work, imaging and pathology is if available and to follow-up on needed medical care in the outpatient setting. Time Spent with Patient Time attestation: Total time spent providing and/or coordinating discharge services: Time spent: greater than 30 minutes Exam Constitutional Vital Signs, click to edit/add: Last Vital Signs Temp 97.8 F 08/26/25 07:57 Pulse 78 08/26/25 07:52 Resp 21 H 08/26/25 07:50 BP 146/78 H 08/26/25 07:15 Pulse Ox 96 08/26/25 07:15 O2 Del Method Room Air 08/26/25 07:57 O2 Flow Rate 2 08/25/25 20:00 DS: Data Data Completed and Pending Labs on day of discharge: Labs from last 24 hours 08/26/25 08/25/25 08/25/25 05:52 18:37 16:50 WBC 6.7 7.1 RBC 4.33 4.63 Hgb 12.8 13.6 Hct 40.3 42.7 MCV 93.1 92.2 MCH 29.6 29.4 MCHC 31.8 31.9 RDW 14.6 14.6 Plt Count 300 337 MPV 9.5 9.4 L Neut % (Auto) 59.9 71.1 Lymph % (Auto) 28.4 18.0 L [place] % (Auto) 9.3 8.8 Eos % (Auto) 1.9 1.4 Baso % (Auto) 0.4 0.4 Neut # (Auto) 4.0 5.1 Lymph # (Auto) 1.9 1.3 [place] # (Auto) 0.6 0.6 Eos # (Auto) 0.1 0.1 Baso # (Auto) 0.0 0.0 Abs Immat Gran (auto) 0.01 0.02 Imm/Tot Granulo (auto) 0.1 0.3 Sodium 141 137 Potassium 4.0 4.5 Chloride 108 H 102 Carbon Dioxide 23.9 25.4 Anion Gap 13.1 14.1 BUN 10.0 14.0 Creatinine 0.80 0.94 Est GFR ( Amer) >60 >60 Est GFR (Non-Af Amer) >60 58 L BUN/Creatinine Ratio 12.5 14.9 Glucose 99 148 H Calcium 9.5 10.3 H Magnesium 1.8 Troponin I High Sens 273.0 H* 251.2 H* 285.0 H* NT-Pro-B Natriuret Pep 1141.0 TSH & Free T4 Interp 2.704 Discharge Plan Discharge Disposition: Home, Self-Care Discharge Medications: New metoprolol succinate [Toprol XL] 50 mg tablet extended release 24 hr 50 mg PO DAILY Qty: 30 4RF Xarelto 20 mg tablet 20 mg PO DAILY Qty: 30 5RF Rx Instructions: must administer with evening meal Continued buspirone 15 mg tablet 15 mg PO Q12H omeprazole 40 mg capsule,delayed release(DR/EC) 40 mg PO DAILY rosuvastatin 5 mg tablet 5 mg PO Q48H venlafaxine 150 mg capsule,extended release 24hr 150 mg PO DAILY Changed losartan 50 mg tablet 25 mg PO DAILY Qty: 0 0RF Discontinued venlafaxine 75 mg capsule,extended release 24hr 75 mg PO DAILY Print Language: Swedish Activity Restrictions/Additional Instructions: I may not have addressed or treated all of your medical illnesses or the abnormal blood work or imaging studies during this hospitalization. Please ask your primary care provider to obtain [facility] records entirely to follow up on all of the abnormal physical, laboratory, and imaging findings that I have not addressed. Please return back to the emergency room or seek medical attention if your symptoms worsen or return. Discharging you from [facility] does not mean that your medical care ends here and now. You may still need additional monitoring, work up, investigation, and treatment plan to be handled from this point on by out patient providers including your primary care provider and specialists. For any medication question, please contact your retail pharmacist or your primary care provider. Thank you. Forms: Portal Instructions
[2025-08-26] MEDS: FLU VACC TS2025-26(65YR UP)/PF 180 MCG/0.5 ML SYRINGE IM (10:38)
[2025-08-26] MEDS: ASPIRIN 81 MG TABLET.DR PO (10:45)
--- NOTE | 2025-08-26 14:52 | SWNOTE1 ---
Important Message from Medicare reviewed and discussed with patient. Pt. verbalized understanding and signed the form. Original given to patient and copy placed in patient?s chart. Pt voiced she is feeling better and waiting for Cardiology to see her. No anticipated discharge needs. Pt is independent.
--- NOTE | 2025-08-26 16:17 | CM.NOTE ---
We received a call from the patients nurse that [facility] in [place] did not have Xarelto 20 mg in stock so the [facility] was [facility] [place]. The [facility] in [place] does not accept the patients insurance so the nurse was wondering what other pharmacies we could try. I reached out to [facility] in [place] and they can get the medication in tomorrow if we send over a new prescription today. notified of the above and said that he would send over a new prescription to [facility] in [place].
--- NOTE | 2025-08-26 17:57 | PC.NURSE ---
tarun in to see pt. discussed recommendations to this nurse. dr calloway notified of recommendations and this nurse received telephone orders. pt aware.
--- NOTE | 2025-08-26 18:11 | PM.CACN ---
History of Present Illness History of Present Illness Consult date: 08/26/25 Requesting physician: Celia Bonilla Consult reason: atrial fibrillation Chief complaint: New A-Fib New Onset Rapid a-fib Narrative: This is a 75-year-old woman with no clear prior cardiac history who is admitted because of palpitations happening while she was doing physical therapy. She felt palpitations that did not stop. She denies any chest pain or shortness of breath at the time or subsequently. She presented to the [facility] and was found to be in atrial fibrillation with rapid ventricular response and her ECG showed significant ST segment depressions while in fast ventricular rate. She was given intravenous Cardizem and then she later reverted to sinus rhythm. Since then she has been free of recurrence of atrial fibrillation. She continues to deny symptoms of chest pain or shortness of breath. She has no lower extremity edema. Currently she is maintained on metoprolol to tartrate 25 mg twice daily and Xarelto 20 mg daily. She is also on aspirin 81 mg daily. Review of her ECGs showed atrial fibrillation with rapid ventricular response with significant ST segment depressions seen in the inferior and lateral leads while in rapid ventricular response. Subsequent EKG in sinus rhythm shows no acute ST changes. Her echocardiogram showed left ventricular hypertrophy with significant hypertrophy of the basal septum measuring 1.8 cm and evidence of systolic anterior motion of the anterior mitral valve leaflet. There was evidence of mild to moderate mitral regurgitation and mild to moderate tricuspid regurgitation with normal right-sided pressures. Her blood testing was significant for elevated troponin ranging between 250s-270s. NT proBNP was 1141. Her TSH was normal. Renal function was normal. Her hemoglobin was normal. He denies prior history of syncope. She does not have any siblings nor biological children. No history of sudden in the family. Review of Systems ROS Status of ROS 10 or more systems reviewed and unremarkable except as noted in history and below Cardiovascular Reports: palpitations; Denies: chest pain, edema, swelling of feet/ankles, lightheadedness, shortness of breath with exertion or shortness of breath when lying down [facility] Medical History (Updated 08/26/25 @ 18:16 by ROSA HASSAN) History of depression ?Z86.59 - Personal history of other mental and behavioral disorders (ICD-10) History of hyperlipidemia ?Z86.39 - Personal history of other endocrine, nutritional and metabolic disease (ICD-10) History of gastroesophageal reflux (GERD) ?Z87.19 - Personal history of other diseases of the digestive system (ICD-10) History of hypertension ?Z86.79 - Personal history of other diseases of the circulatory system (ICD-10) Surgical History History of left hip replacement ?Z96.642 - Presence of left artificial hip joint (ICD-10) History of bilateral knee replacement ?Z96.653 - Presence of artificial knee joint, bilateral (ICD-10) Family History (Updated 08/25/25 @ 20:34 by Heidi Huang RN) Mother No problems noted. Other Family history of diabetes mellitus Family history of hypertension Social History Within the past year, how often did you have a drink containing alcohol: never Within the past year, how often did you have six or more drinks on one occasion: never Score interpretation: A score less than 3 is consistent with normal alcohol consumption. Smoking status: Never smoker Non-prescribed substance use: denies use Previous occupational history: retired Highest level of school completed/degree received: some college, no degree Are you now , , , , never or living with a partner: In a typical week, how many times do you talk on the telephone with family, friends, or neighbors: 3 or more times per week How often do you get together with friends or relatives: 3 or more times per week How often do you attend pentecostal or zoroastrian services: 4 or more times per year Do you belong to any clubs or organizations such as pentecostal groups unions, fraternal or athletic groups, or school groups: yes Total score: 3 Score interpretation: A score of greater than or equal to 2 indicates the lowest level of social isolation. Little interest or pleasure in doing things: not at all Feeling down, depressed, or hopeless: not at all Feel stressed/tense/nervous/anxious/difficulty sleeping: not at all Meds Home Medications and Allergies Home Medications ?Medication ?Instructions ?Recorded ?Confirmed ?Type buspirone 15 mg tablet 15 mg PO Q12H 08/25/24 08/25/25 History omeprazole 40 mg capsule,delayed 40 mg PO DAILY 08/25/24 08/25/25 History release rosuvastatin 5 mg tablet 5 mg PO Q48H 08/25/24 08/25/25 History venlafaxine 150 mg 150 mg PO DAILY 08/25/25 08/25/25 History capsule,extended release 24 hr losartan 50 mg tablet 25 mg (1/2 x 50 mg) PO DAILY #0 08/26/25 08/25/25 Rx tabs metoprolol succinate 50 mg 50 mg PO DAILY #30 tabs 08/26/25 Rx tablet,extended release 24 hr (Toprol XL) rivaroxaban 20 mg tablet (Xarelto) 20 mg PO DAILY #30 tabs 08/26/25 Rx Allergies Allergy/AdvReac Type Severity Reaction Status Date / Time No Known Drug Allergies Allergy Verified 08/25/25 16:33 Exam Constitutional Vital Signs, click to edit/add: Last Vital Signs Temp 97.8 F 08/26/25 07:57 Pulse 78 08/26/25 17:44 Resp 18 08/26/25 15:43 BP 131/71 08/26/25 15:43 Pulse Ox 96 08/26/25 07:15 O2 Del Method Room Air 08/26/25 15:45 O2 Flow Rate 2 08/25/25 20:00 Common normals: no apparent distress, average body habitus, oriented x3, no limitations, healthy appearing, alert and well nourished Eye Common normals: conjunctivae normal Chest Common normals: inspection of chest normal Chest: symmetrical chest wall rise Respiratory Common normals: normal respiratory effort, no retractions, no use of accessory muscles and clear to auscultation bilaterally Cardio Common normals: no JVD, regular rate, regular rhythm, S1 normal heart sound and S2 normal heart sound Heart sounds: murmur (Grade 2/6 systolic ejection murmur in the RUSB, accentuates with Valsalva) GI Common normals: Normal to inspection, nondistended, normoactive bowel sounds present and soft to palpation Extremity Common normals: no clubbing, cyanosis or edema and no pedal edema Neuro Common normals: oriented x3, moves all extremities, no focal motor deficits and no sensory deficits noted Psych Attention/concentration: concentration grossly intact and attention grossly impaired Memory/cognition: memory grossly intact Insight: insight good Results Labs and Meds Lab results: CBC 08/26/25 Range/Units 05:52 WBC 6.7 (4.0-11.0) 10^3/uL RBC 4.33 (4.20-5.40) 10^6/uL Hgb 12.8 (12.0-16.0) g/dL Hct 40.3 (36.0-48.0) % Plt Count 300 (150-450) 10^3/uL Neut # (Auto) 4.0 (1.4-6.5) 10^3/uL Lymph # (Auto) 1.9 (1.2-3.8) 10^3/uL [place] # (Auto) 0.6 (0.3-0.8) 10^3/uL Eos # (Auto) 0.1 (0.0-0.7) 10^3/uL Baso # (Auto) 0.0 (0.0-0.1) 10^3/uL Comprehensive Metabolic Panel 08/26/25 Range/Units 05:52 Sodium 141 (136-145) mmol/L Potassium 4.0 (3.5-5.1) mmol/L Chloride 108 H (98-107) mmol/L Carbon Dioxide 23.9 (21.0-32.0) mmol/L BUN 10.0 (7.0-18.0) mg/dL Creatinine 0.80 (0.55-1.02) mg/dL Glucose 99 (74-106) mg/dL Calcium 9.5 (8.5-10.1) mg/dL Intake and Output 08/26/25 08/26/25 08/26/25 07:59 15:59 23:59 Intake Total 1178.667 / 2192.583 Output Total 300 / 300 500 / 500 Balance 878.667 / 1892.583 -500 / -500 Intake: IV 1178.667 / 2192.583 0.9 % Sodium Chloride 1,000 ml 1000 / 1000 @ 200 mls/hr IV .Q5H ONE Rx#: [id number] dilTIAZem HCL 125 mg In 0.9 % 178.667 / 192.583 Sodium Chloride 100 ml @ 5 MG/ HR 5 mls/hr IV TITR STA Rx#: [id number] Output: Urine 300 / 300 500 / 500 Assessment and Plan Assessment and Plan (1) PAF (paroxysmal atrial fibrillation): (2) Hypertrophic cardiomyopathy: (3) Elevated troponin: Plan 1. Paroxysmal atrial fibrillation: Currently reverted to sinus rhythm. I recommend continuing Xarelto for anticoagulation given the likely presence of hypertrophic cardiomyopathy. This condition portends increased risk of stroke with atrial fibrillation. I recommend changing metoprolol tartrate to succinate and to add Cardizem for better control of atrial fibrillation. 2. Hypertrophic cardiomyopathy: Diagnosed based off of the echocardiogram findings and the physical exam. The echocardiogram did not assess formally for LVOT obstruction as the Valsalva maneuver was not performed during the echocardiogram acquisition. However she does have increased murmur with Valsalva maneuver on exam. It appears there is no family history of sudden cardiac and there is no personal history of syncope. The septal thickness was 1.8 cm. At this point there is no increased risk factors for sudden cardiac . I recommend that she undergoes a cardiac MRI as an outpatient. I also recommend changing metoprolol to tartrate to metoprolol succinate 50 mg once daily and add Cardizem CD 120 mg once daily. 3. Elevated troponin: I think this is related to supply/demand mismatch with the atrial fibrillation and the presence of ventricular hypertrophy. The trend of the troponin was rather flat. She did not have symptoms suggestive of ACS. At this point continue aspirin 81 mg daily which can be discontinued upon outpatient follow-up. Continue home statin therapy. Ideally we should monitor her with the above medication changes to make sure that she can tolerate before discharge from the hospital. Therefore I recommend observing her overnight and discharge tomorrow morning. I will arrange for a follow-up visit with me in the cardiology clinic to follow-up on the above.
--- NOTE | 2025-08-26 19:05 | CA_ITS ---
Patient Name: JANELLE BROWN MR#: [id number] : 1950 Exam Date: 08/26/2025 Ordering Doctor: BLAS ALMARAZ ECHOCARDIOGRAM REPORT PROCEDURE: CA ECHO DOPPLER COMPLETE INDICATIONS: New A-Fib with RVR - resolved COMPARISON: None. DESCRIPTION: COMPLETE ECHOCARDIOGRAM Real-time transthoracic echocardiography with 2D, M-mode, spectral and color flow Doppler performed. QUALITY: Technical quality was good. LEFT VENTRICLE: Normal chamber size. Proximal septal hypertrophy (sigmoid septum), measuring 1.8 cm. Systolic function is normal. Estimated LVEF is 70%. There is mild systolic anterior motion VIANEY of the anterior mitral leaflet. No clear LVOT obstruction is seen. Valsalva maneuver was not performed. LV EF: Normal left ventricular ejection fraction, (>55%). DIASTOLIC: Diastolic function is indeterminate. ATRIAL SEPTUM: LEFT ATRIUM: Normal chamber size. RIGHT ATRIUM: Normal chamber size. RIGHT VENTRICLE: Normal chamber size. Normal right ventricular systolic function. TRICUSPID VALVE: Normal mobility and thickness. No stenosis with trivial regurgitation. No evidence of pulmonary hypertension. RVSP 28 mmHg MITRAL VALVE: Normal mobility and thickness. No evidence of mitral valve stenosis. There is no mitral annular calcification. Mild to moderate mitral regurgitation. AORTIC VALVE: Normal trileaflet appearance. Thickened aortic valve. Normal leaflet mobility. No evidence of aortic valve stenosis. Mild to moderate aortic regurgitation. AORTIC ROOT: Normal diameter and appearance, measuring 3.5 cm. PULMONIC VALVE: Normal thickness and mobility. No stenosis. Trivial regurgitation. PERICARDIUM: No evidence of pericardial effusion. IVC: Not well visualized. PLEURA: CONCLUSION: 1. Normal left ventricular size with significant hypertrophy of the basal septum. Global systolic function is normal. Estimated LVEF is 70%. There is mild systolic anterior motion VIANEY of the anterior mitral leaflet. No clear LVOT obstruction is seen. Valsalva maneuver was not performed. 2. Normal right ventricular size and systolic function. 3. Mild to moderate mitral regurgitation. 4. Mild to moderate aortic regurgitation. 5. Normal right-sided pressures. 6. Additional imaging studies such as cardiac MRI is recommended for further characterization of the above findings which could represent hypertrophic cardiomyopathy. Adult Echocardiography Procedure Report Left Ventricle LVEDD (3.7 - 5.6 cm): 4.36 cm LVESD (2.2 - 4.0 cm): 2.47 cm LVIVS thickness (0.6 - 1.2 cm): 1.83 cm LVPW thickness (0.5 - 1.0 cm): 1.04 cm e': 0.06 m/s E - e': 12.84 LVOT Max Gradient: 4.21 mm[Hg] LVOT Area (cm2): 1.03 m/s Peak Velocity (LVOT): 1.03 m/s Mean Velocity (LVOT): 0.76 m/s LVOT Diameter 1.91 cm Left Ventricular Ejection Fraction: 70% Left Atrium LA Volume Index (2D A2C): 28.44 ml/m2 Left Atrium Systolic Dimension: 3.24 cm Mitral Valve MV E to A Ratio: 1.07 Mitral Valve A-Wave Peak Velocity: 0.78 m/s Mitral Valve E-Wave Peak Velocity: 0.83 m/s Right Ventricle Aorta AO Root Diam: 3.52 cm Aortic Valve AoV Area (Peak Rakan): 2.29 cm2, 2.29 cm2 AoV Area (VTI): 2.11 cm2, 2.11 cm2 Deceleration [place]: 2.18 m/s2 Pressure Half-Time: 524.77 ms Peak Velocity(Antegrade Flow): 1.29 m/s Peak Gradient(Antegrade Flow): 6.62 mm[Hg] Mean Velocity(Antegrade Flow): 0.84 m/s Mean Gradient(Antegrade Flow): 3.33 mm[Hg] Velocity Time Integral: 26.64 cm Tricuspid Valve Peak Velocity (Regurgitant Flow): 2.49 m/s Pulmonic Valve Mean Gradient: 1.14 mm[Hg], 1.40 mm[Hg] Mean Velocity: 0.50 m/s, 0.56 m/s Peak Velocity: 0.80 m/s Peak Gradient: 2.40 mm[Hg], 2.72 mm[Hg] Right Atrium Right Atrium Systolic Pressure: 42.24 ml, 42.24 ml Dictated by: Raul Ochoa M.D. on 08/26/2025 at 12:54 Approved by: Raul Ochoa M.D. on 08/26/2025 at 13:09
--- NOTE | 2025-08-26 19:15 | ECG_ITS ---
[facility] Test Date: 2025-08-26 Pat Name: JANELLE BROWN Department: Room: [facility] Gender: Female Practicing Dermatologist: : 1950 Requested By: [id number] Order Number: [id number] Reading MD: ROSA HASSAN M.D. Measurements Intervals [place] Rate: 92 P: -[id number] PA: -[id number] QRS: 23 QRSD: 84 T: 18 QT: 366 QTc: 416 Interpretive Statements 1210 Atrial fibrillation [address] depression, probably digitalis effect [address] & Twave abnormality, probably digitalis effect 9150 abnormal ECG Compared to ECG 08/25/2025 20:56:35 Left ventricular hypertrophy no longer present ST (T wave) deviation still present Electronically Signed On 08-26-2025 7:11:29 EST by ROSA HASSAN M.D.
[2025-08-26] MEDS: ATORVASTATIN CALCIUM 20 MG TABLET PO (21:23)
[2025-08-26] MEDS: METOPROLOL SUCCINATE 50 MG TAB.ER.24H PO (21:23)
[2025-08-26] MEDS: DILTIAZEM HCL 120 MG CAP.ER.24H PO (21:23)
[2025-08-27] VITALS (16 sets, daily range): BP systolic 120–151; BP diastolic 61–76; PULSE 56–84; TEMP 36.5; O2SAT 94–96
[2025-08-27] MEDS: BUSPIRONE HCL 15 MG TABLET PO (08:10)
[2025-08-27] MEDS: VENLAFAXINE HCL ER 75 MG CAPSULE PO (08:10)
[2025-08-27] MEDS: DILTIAZEM HCL 120 MG CAP.ER.24H PO (08:10)
[2025-08-27] MEDS: RIVAROXABAN 10 MG TABLET 20 MG PO (08:11)
[2025-08-27] MEDS: VENLAFAXINE HCL ER 150 MG CAPSULE PO (08:11)
[2025-08-27] MEDS: ASPIRIN 81 MG TABLET.DR PO (08:11)
[2025-08-27] MEDS: METOPROLOL SUCCINATE 50 MG TAB.ER.24H PO (08:11)
[2025-08-27] MEDS: PANTOPRAZOLE SODIUM 40 MG TABLET.DR PO (08:14)
--- NOTE | 2025-08-27 08:15 | CM.NOTE ---
Rounds made with Dr. Bonilla, pt will discharge to home today. Pt will have appointments scheduled for [facility] cardiology and PCP. Pt asking about outpatient PT order for balance and weakness. CM will come back to discuss outpatient therapy with pt. CM will also call [facility] for Xarelto to make sure medication is stocked.
--- NOTE | 2025-08-27 09:50 | CM.NOTE ---
CM spoke with [facility], Victor Manuelrelto shipment arriving today. Updated Dr. Bonilla to resend script to [facility]. CM went back to speak with pt about Xarelto and picking up at [facility]. Pt will call [facility] prior to coal picker to make sure shipment has arrived. Pt will get P.O Xarelto today prior to discharge. Pt also given order for outpatient PT, pt will call and schedule. Pt verbalizes understanding. Pt denies other questions regarding discharge or medications. No other discharge needs identified.
--- NOTE | 2025-08-27 10:19 | P.DS_ITS ---
DS: Providers Provider Date of admission: 08/25/25 19:53 Primary care physician: CHRISTINA JARVIS Consults: 08/25/25 19:05 Consult to Cardiology Routine Reason for consultation: New A-Fib with RVR DS: Diagnosis Discharge Diagnosis (1) PAF (paroxysmal atrial fibrillation): (2) Hypertrophic cardiomyopathy: (3) Elevated troponin: Plan As listed above, below and others that are not listed DS: Summary Hospital Course Hospital Course: Mrs. Martínez is a 75-year-old female who came in with palpitation. She was found to have A-fib with RVR. A-fib with RVR. Patient was started on Cardizem drip. Patient was started on anticoagulation due to elevated UWL9XK9-WGDu score. Patient converted to sinus rhythm today. Echocardiogram showed ejection fraction 70%. Probable element of obstructive hyper prophy cardiomyopathy. Director Cardiology recommended the addition of Cardizem CD 120 mg daily in addition to Toprol-XL 50 mg daily He recommended outpatient MRI He cleared the patient for discharge on Cardizem, Toprol and Xarelto. ST depression when heart rate was 175. Elevated troponin secondary to tachycardia. Patient may have underlying CAD but no clinical evidence to suggest ACS at this time. Patient is chest pain-free Patient was started on beta-param. Patient was started on Xarelto. Patient will be started on baby aspirin CAD evaluation would need to be completed. Echocardiogram showed no cardiomyopathy or significant valvular disease. Positive for possible obstructive hypertrophic cardiomyopathy Director Cardiology stated that her troponin elevation does not indicate ACS and recommended patient to be discharged home on aspirin and follow-up in the outpatient setting. Hypertension With the initiation of Toprol XL 50 mg daily. Cardiology recommended addition of Cardizem CD 120 mg daily. To prevent hypotension we will discontinue losartan. Hyperlipidemia Continue statin Depression and anxiety Continue BuSpar and venlafaxine Patient has few medical issues as listed above and others that are not listed. All appear to be stable. Patient is feeling great. Patient was seen by blending operator who cleared her to be discharged on the aforementioned medications. Patient to have an outpatient MRI to rule out obstructive hypertrophic cardiomyopathy. Patient may need to have ischemic evaluation. No inpatient ischemic evaluation was recommended by cardiology. I would not have any clear or strong clinical justification to extend inpatient hospitalization. Patient h owever will require close and frequent monitoring as well as additional work-up, investigation and therapeutic intervention that could take place from this point on post discharge. That is to prevent relapse, decompensation, rehospitalization and other medical implications.. I instructed patient to ask her primary care doctor to obtain [facility] record entirely to address abnormalities seen on labs and imaging that I have and have not addressed during this hospitalization, follow-up on pending blood work, imaging and pathology is if available and to follow-up on needed medical care in the outpatient setting. Time Spent with Patient Time attestation: Total time spent providing and/or coordinating discharge services: Exam Narrative Exam Narrative: [pt is awake and alert. oriented to place, time and person HEENT: [place] conjunctiva and NL buccal mucosa Neck: Supple, no tenderness Endocrine: No Thyromegaly. Vascular: No JVD or carotid bruit. Lymphatic: No cervical lymphadenopathy. Chest: CTA no DTP. Heart RRR, no extra sound or murmur. Abd: Soft, no tenderness, no rebound and no rigidity. Increase abd girth therefore clinically I could not exclude the possibility of intra abd mass or organomegaly. LE: No cyanosis or clubbing, no varices or edema. Neuro: A A O. Nl speech, comprehension and attention. Nl and symetrical motor and tone examination through out. []] Constitutional Vital Signs, click to edit/add: Last Vital Signs Temp 97.7 F 08/27/25 03:42 Pulse 64 08/27/25 10:00 Resp 21 H 08/27/25 07:14 BP 151/76 H 08/27/25 07:14 Pulse Ox 96 08/27/25 07:14 O2 Del Method Room Air 08/27/25 03:42 O2 Flow Rate 2 08/25/25 20:00 Discharge Plan Discharge Disposition: Home, Self-Care Discharge Medications: New aspirin 81 mg Tablet,Delayed Release (Dr/Ec) 81 mg PO QD Qty: 90 1RF diltiazem HCl 120 mg Capsule,Extended Release 24hr 120 mg PO QD Qty: 60 1RF metoprolol succinate 50 mg Tablet Extended Release 24 Hr 50 mg PO QD Qty: 60 2RF Xarelto 20 mg tablet 20 mg PO DAILY Qty: 30 5RF Rx Instructions: must administer with evening meal Xarelto 20 mg tablet 20 mg PO DAILY Qty: 30 4RF Rx Instructions: must administer with evening meal Continued buspirone 15 mg tablet 15 mg PO Q12H omeprazole 40 mg capsule,delayed release(DR/EC) 40 mg PO DAILY rosuvastatin 5 mg tablet 5 mg PO Q48H venlafaxine 150 mg capsule,extended release 24hr 150 mg PO DAILY Discontinued losartan 50 mg tablet 50 mg PO DAILY venlafaxine 75 mg capsule,extended release 24hr 75 mg PO DAILY Activity: increase activity as tolerated Diet: advance to your usual diet Print Language: Tajik Patient Instructions: Metoprolol (By mouth) (Lopressor, Toprol XL), Rivaroxaban (By mouth) (Xarelto, Xarelto Starter Pack), A-fib (Atrial Fibrillation) (DC) Activity Restrictions/Additional Instructions: I may not have addressed or treated all of your medical illnesses or the abnormal blood work or imaging studies during this hospitalization. Please ask your primary care provider to obtain [facility] records entirely to follow up on all of the abnormal physical, laboratory, and imaging findings that I have not addressed. Please return back to the emergency room or seek medical attention if your symptoms worsen or return. Discharging you from [facility] does not mean that your medical care ends here and now. You may still need additional monitoring, work up, investigation, and treatment plan to be handled from this point on by out patient providers including your primary care provider and specialists. For any medication question, please contact your retail pharmacist or your primary care provider. Thank you. Forms: Portal Instructions Follow Up Appointments: Dr Jarvsi will contact pt to set up appointment [facility] cardiology at the [facility] Aug @ 9:45am [phone]
--- NOTE | 2025-08-27 11:24 | CM.NOTE ---
Call received from pt that medications were not sent to [facility] pharmacy. CM called [facility] pharmacy to verify all scripts crossed over to be filled. All scripts have been received and they are working to fill medications. Pt will be notified when medications are ready for pick-up. CM called pt back and updated that medications are being filled and are not ready for sisal picker. [facility] will notify pt when medications are ready for sisal picker. Pt verbalizes understanding.
--- NOTE | 2025-08-28 11:58 | CM.DCFOLLOWU ---
Person spoke with: Kayleigh How are you feeling? Better How is your pain? No pain Did you understand your discharge instructions? Yes Do you have any questions about your discharge instructions? No Were you given any prescriptions at discharge? Yes Were you able to get your prescriptions filled? Everything except Xarelto but I just spoke with SANDIP and she can pick this up today Do you understand how to take your medications as ordered? Yes Do you have any questions about your follow up appointment and do you plan to keep your follow up appointment? No questions and yes she plans on keeping her follow up appt Is there anything else that you would like to discuss? No Questions/Comments/Concerns/Other:
== END 2025-08-27 10:35 | disposition home or self-care (01) | DRG 310 ==
LOC: ER 19:12 → MS 19:59
PROVIDERS: Admitting Provider Hospitalist; Emergency Provider Emergency Medicine; PCP Family Medicine; Visit Provider Hospitalist
DX: I48.0 Paroxysmal atrial fibrillation (principal); E78.5 Hyperlipidemia, unspecified; I11.9 Hypertensive heart disease without heart failure; I43 Cardiomyopathy in diseases classified elsewhere; I08.1 Rheumatic disorders of both mitral and tricuspid valves; R79.89 Other specified abnormal findings of blood chemistry; F32.A Depression, unspecified; Z79.899 Other long term (current) drug therapy; Z96.653 Presence of artificial knee joint, bilateral; Z96.642 Presence of left artificial hip joint; F41.9 Anxiety disorder, unspecified
CPT/HCPCS: 36415; 71045; 80048; 82306; 83735; 83880; 84443; 84484; 85025; 90662; 93005; 93306; 96372; 96374; 99285; J1160; J1650

== ENCOUNTER 2025-09-23 15:04 | Emergency (ER) | payer MEDICARE, SELFPAY ==
[2025-09-23 15:24] VITALS: BP 148/67; PULSE 77; TEMP 36.8; O2SAT 96; BMI 31.0
--- OUTSIDE RECORDS SUMMARY | 2025-09-23 15:50 | XMS_ITS | Clinical Summary ---
Author Organization [facility] Address [address] [place] [address] Phone Care Team Providers Care Accountant Budget Name Role Phone Roberto Marino DO Primary Care Provider [phone] Encounters DateTypeDepartmentCare PwgmMoyxwratdoq66/30/7519Puxtts81/17/2025Scanned Document [facility] [address] [place] [phone] Scanning, Generic Provider 08/26/2025Scanned Document [facility] [address] [place] [phone] Scanning, Generic Provider from Last 3 Months Social History Tobacco UseTypesPacks/DayYears UsedDateSmoking Tobacco: Never Assessed CommentsUnknownSex and Gender InformationValueDate RecordedSex Assigned at Not on fileLegal PhfKslbpj93/13/2025 8:26 AM ESTGender IdentityNot on fileSexual OrientationNot on file Plan of Treatment DateTypeDepartmentCare Team (Latest Contact Info)Voevxbdigkg40/03/2025 2:10 PM ESTOffice Visit [facility] [address] [address] Ramirez Swift MD [address] [facility] [address] [place] [address] Health MaintenanceDue DateLast DoneCommentsLipid Panel1949Medicare Annual Wellness Visit (AWV)1950Hepatitis C Yqybkvfjz30/04/1967DTaP/Tdap/Td Vaccines (1 - Tdap)1971Pneumococcal Vaccine (1 of 1 - PCV)1999Zoster Vaccines (1 of 2)1999Bone Density Scan2014RSV High Risk: (Elderly (60+) or Population) (1 - 1-dose 75+ series)2024Influenza Vaccine (#1)5COVID-19 Vaccine (1 - 2024- season)2025HIB VaccinesAged OutNo longer eligible based on patient's age to complete this topicHPV Vaccines Aged OutNo longer eligible based on patient's age to complete this topic Hepatitis A VaccinesAged OutNo longer eligible based on patient's age to complete this topicHepatitis B VaccinesAged OutNo longer eligible based on patient's age to complete this topicIPV VaccinesAged OutNo longer eligible based on patient's age to complete this topicMeningococcal VaccineAged OutNo longer eligible based on patient's age to complete this topicRotavirus VaccinesAged Out No longer eligible based on patient's age to complete this topic Procedures Procedure NamePriorityDate/TimeAssociated DiagnosisCommentsECHOCARDIOGRAM 08/26/2025 HVEQGZDGQBDEAM06/03/2025 from Last 3 Months Results * Echocardiogram (08/26/2025) Narrative 08/26/2025 Ordered by an unspecified provider. Authorizing ProviderResult TypeResult StatusGeneric Provider ScanningCV ECHO PROCEDURESFinal Result * Echocardiogram (08/26/2025) Narrative 08/26/2025 Ordered by an unspecified provider. Authorizing ProviderResult TypeResult StatusGeneric Provider ScanningCV ECHO PROCEDURESFinal Result from Last [place] [id number] Care Teams Team MemberRelationshipSpecialtyStart DateEnd Date Roberto Marino DO [address] [place] [address] PCP - GeneralFamily Galswaxy81/17/25
--- OUTSIDE RECORDS SUMMARY | 2025-09-23 15:50 | XMS_ITS | Clinical Summary ---
Author Organization [facility] Address [address] [place] [address] Care Team Providers Care Brick Paver Name Role Phone Unavailable Primary Care Provider Unavailabl e Social History Tobacco UseTypesPacks/DayYears UsedDateSmoking Tobacco: Never Assessed CommentsUnknownSex and Gender InformationValueDate RecordedSex Assigned at Not on fileLegal IgmHaxatv35/15/2023 7:30 PM EDTGender IdentityNot on fileSexual OrientationNot on file Last Filed Vital Signs Vital SignReadingTime TakenCommentsBlood Pressure--Pulse--Temperature-- Respiratory Rate--Oxygen Saturation--Inhaled Oxygen Concentration--Kqyfkh38.2 kg (212 lb)05/07/2020 12:00 PM QQSTneoad770.3 cm (5' 9 )05/07/2020 12:00 PM EDTBody Mass Index31.31005/07/2020 12:00 PM EDT Plan of Treatment Not on file
--- OUTSIDE RECORDS SUMMARY | 2025-09-23 15:50 | XMS_ITS | Encounter Summary ---
Author Organization [facility] Address [address] [place] [address] Phone Care Team Providers Care Invasive Cardiologist Name Role Phone Roberto Marino DO Primary Care Provider [phone] Encounter Details DateTypeDepartmentCare Team (Latest Contact Info)Gzgrfmyeiap80/17/2025Scanned Document [facility] [address] [place] [phone] Scanning, Generic Provider Social History Tobacco UseTypesPacks/DayYears UsedDateSmoking Tobacco: Never Assessed CommentsUnknownSex and Gender InformationValueDate RecordedSex Assigned at Not on fileLegal WmqNgtcrj08/13/2025 8:26 AM ESTGender IdentityNot on fileSexual OrientationNot on filedocumented as of this encounter Plan of Treatment DateTypeDepartmentCare Team (Latest Contact Info)Uiuxqrefpbx78/03/2025 2:10 PM ESTOffice Visit [facility] [address] [phone] Ramirez Swift MD [address] [facility] 2, [address] [address] documented as of this encounter Visit Diagnoses Not on filedocumented in this encounter Care Teams Team MemberRelationshipSpecialtyStart DateEnd Date Roberto Marino DO [address] [place] [address] PCP - GeneralFamily Ootiwbsi05/17/25documented as of this encounter
--- OUTSIDE RECORDS SUMMARY | 2025-09-23 15:50 | XMS_ITS | Clinical Summary ---
Author Organization [facility] Address [address] [place], [place] [id number] Care Team Providers Care Special Forces Weapons Sergeant Name Role Phone Roberto Marino DO Primary Care Provider [phone] Social History Tobacco UseTypesPacks/DayYears UsedDateSmoking Tobacco: Never Assessed CommentsUnknownSex and Gender InformationValueDate RecordedSex Assigned at Not on fileLegal AppBoyyjn33/28/2017 8:59 AM EDTGender IdentityNot on fileSexual OrientationNot on file Plan of Treatment Health MaintenanceDue DateLast DoneCommentsAnxiety Qvfkiatgc78/04/1967Depression Aojuxzgvb91/04/1967Hepatitis C Atnqbuglu70/04/1967DTaP,Tdap,Td Vaccine (1 - Tdap)1968Diabetes Sbtornsta69/04/1994Pneumococcal Vaccine: 50+ (1 of 1 - PCV)1999Shingrix Vaccine (1 of 2)1999Bone Density Screening 2014RSV Vaccine (1 - 1-dose 75+ series)2024dvance Directive Cmzhwewdul27/01/2025ovid-19 Vaccine ( - 2024-26 season)2025Influenza Vaccine (#1)2025 Insurance * Guarantor: Chandni Martínez TypeRelation to PatientDate of BirthPhone Billing AddressPersonal/YnmhymJyot1950 [address] [place] [address] Care Teams Team MemberRelationshipSpecialtyStart DateEnd Date Roberto Marino DO [address] [place] [address] PCP - Generalmi Medicine04/20/17
--- OUTSIDE RECORDS SUMMARY | 2025-09-23 15:50 | XMS_ITS | Encounter Summary ---
Author Organization [facility] Address [address] [place] [address] Phone Care Team Providers Care Php Website Developer Name Role Phone Roberto Marino DO Primary Care Provider [phone] Encounter Details DateTypeDepartmentCare Team (Latest Contact Info)Bhajfkfjlso80/30/2025Travel Social History Tobacco UseTypesPacks/DayYears UsedDateSmoking Tobacco: Never Assessed CommentsUnknownSex and Gender InformationValueDate RecordedSex Assigned at Not on fileLegal GsqMbdnao89/13/2025 8:26 AM ESTGender IdentityNot on fileSexual OrientationNot on filedocumented as of this encounter Plan of Treatment DateTypeDepartmentCare Team (Latest Contact Info)Zwpjxwvhdfa40/03/2025 2:10 PM ESTOffice Visit [place] [address] [phone] Ramirez Swift MD 703 [facility] 2, [address] [address] documented as of this encounter Visit Diagnoses Not on filedocumented in this encounter Care Teams Team MemberRelationshipSpecialtyStart DateEnd Date Roberto Marino DO [address] [place] [address] PCP - GeneralFamily Exisfehy34/17/25documented as of this encounter
--- NOTE | 2025-09-23 15:51 | XR_ITS ---
[facility] [place] [id number] Patient Name: JANELLE BROWN MRN: [id number] date: 1950 Sex: F Assigned Patient Location: ED.MAIN Current Patient Location: ED.MAIN Accession/Order Number: [id number] Exam Date: 09/23/2025 16:00 Report Date: 09/23/2025 16:08 At the request of: ANISHA LANDA Procedure: XR wrist RT min 3V RIGHT WRIST - 3 views CLINICAL HISTORY: Fall, ecchymosis, swelling COMPARISON: None FINDINGS: Soft tissue swelling. No acute bony process. Bones are grossly demineralized. Severe degenerative changes involving the scaphotrapezial joint and CMC joint of the thumb. No bony erosions. XR/XR wrist RT min 3V IMPRESSION: SOFT TISSUE SWELLING WITHOUT ACUTE BONY PROCESS. Impression dictated by: Thaddeus Owens Jr., DMurrayOMurray 09/23/2025 4:08 PM Dictation Location: [place] [address] Electronically authenticated by: [id number] Y Date: 09/23/2025 16:08
--- OUTSIDE RECORDS SUMMARY | 2025-09-23 15:51 | XMS_ITS | Clinical Summary ---
Author Organization [facility] Address [facility] [address] [place] [address] Care Team Providers Care Coffee Shop Attendant Name Role Phone Roberto Marino Guero AVITIA Primary Care Provider [phone] Allergies No known active allergies Medications MedicationSigDispense [...] standard drink = 0.6 oz pure alcohol)ChildcareAnswerDate KlgbrstgHrxskltxsLertvlv92/12/2019Employment AnswerDate RnljrzcrFrnhnbvvhnAdayats12/12/2019CommentsUnknownSex and Gender InformationValueDate RecordedSex Assigned at BirthNot on fileLegal Sex Wprkjt3308/26/2015 11:15 AM ESTGender IdentityNot on fileSexual OrientationNot on file Last Filed Vital Signs Vital SignReadingTime TakenCommentsBlood Pressure--Pulse--Wjvgehhyjgn96.9 ??C (96.6 ??F)12/01/2022 8:28 AM ESTRespiratory Rate--Oxygen Saturation--Inhaled Oxygen Concentration--Bqujyx289.2 kg (221 lb)12/01/2022 8:28 AM JILCxpuek333.3 cm (5' 9 )12/01/2022 8:28 AM ESTBody Mass Index32.64012/01/2022 8:28 AM EST Plan of Treatment Health MaintenanceDue DateLast DoneCommentsDepression Hafpnlsva96/04/1961Tobacco Egqccputp29/04/1961DTaP,Tdap and Td Vaccines (1 - Tdap)1968Fall Risk Iurdyxaie30/04/2014Zoster (Shingles) Vaccine (2 of 3)RSV ( or age 60+ yrs) (1 - 1-dose 75+ series)4COVID-19 Vaccine (5 - season)/, 07/24/2021, 12/16/2020, Additional history existsInfluenza Klnawlk20/, 07/13/2021, 07/10/2020, Additional history exists [employer] Not on file Insurance Care Teams Team MemberRelationshipSpecialtyStart DateEnd Date Roberto Marino DO [address] [place] [address] [place] [address] PCP - GeneralFamily Opqkawdj02/22/22
--- NOTE | 2025-09-23 15:54 | ED_ITS ---
HPI HPI - General Adult General Chief complaint: Extremity Injury, Upper Stated complaint: FALL R WRIST PAIN Time Seen by Provider: 09/23/25 15:36 Source: patient Mode of arrival: Wheelchair Limitations: no limitations History of Present Illness HPI narrative: Patient is a 75-year-old female who is on Xarelto for A-fib that presents with complaints of right wrist pain and swelling after a FOOSH injury from a mechanical fall today. She did go home after the fall and has noticed the dorsum of her right wrist has become more swollen and ecchymotic. She is able to make a full fist and is right-handed. She did not take any pain medication prior to presentation today. She denies any other injuries. Related Data Home Medications ?Medication ?Instructions ?Recorded ?Confirmed buspirone 15 mg tablet 15 mg PO Q12H 08/25/2409/23 omeprazole 40 mg capsule,delayed 40 mg PO DAILY 09/23/25 release rosuvastatin 5 mg tablet 5 mg PO Q48H 08/25/24 venlafaxine 150 mg 150 mg PO DAILY 08/25/2512/18 capsule,extended release 24 hr losartan 25 mg tablet mg 09/23/25 losartan 50 mg tablet mg 09/23/25 venlafaxine 75 mg capsule,extended mg PO 09/23/25 release 24 hr Previous Rx's ?Medication ?Instructions ?Recorded aspirin 81 mg tablet,delayed 81 mg PO QD #90 tabs 02/15 release diltiazem HCl 120 mg 120 mg PO DAILY #60 caps 02/15 capsule,extended release 24 hr (Cardizem CD) metoprolol succinate 50 mg 50 mg PO DAILY #60 tabs 02/15 tablet,extended release 24 hr (Toprol XL) rivaroxaban 20 mg tablet (Xarelto) 20 mg PO DAILY #30 tabs 08/27/25 rivaroxaban 20 mg tablet (Xarelto) 20 mg PO DAILY #30 tabs 08/27/25 Allergies Allergy/AdvReac Type Severity Reaction Status Date / Time No Known Drug Allergies Allergy Verified 09/23/25 15:31 Opioid HPI Opioid Management Most Recent Opioid Data: Last Pain Scale 5 Today, 16:08 Last ED Pain Assessment Today, 16:08 Last MAR Pain Assessment Today, 16:04 Last ORT Total Score 1 08/25/25, 20:29 Last ORT Risk Category Low Risk 08/25/25, 20:29 Review of Systems ROS Status of ROS 10 or more systems reviewed and unremark able except as noted in history and below [facility] History (Updated 09/23/25 @ 16:32 by CORDELL Caceres) History of depression ?Z86.59 - Personal history of other mental and behavioral disorders (ICD-10) History of hyperlipidemia ?Z86.39 - Personal history of other endocrine, nutritional and metabolic disease (ICD-10) History of gastroesophageal reflux (GERD) ?Z87.19 - Personal history of other diseases of the digestive system (ICD-10) History of hypertension ?Z86.79 - Personal history of other diseases of the circulatory system (ICD-10) Surgical History History of left hip replacement ?Z96.642 - Presence of left artificial hip joint (ICD-10) History of bilateral knee replacement ?Z96.653 - Presence of artificial knee joint, bilateral (ICD-10) Family History (Updated 08/25/25 @ 20:34 by Heidi Huang RN) Mother No problems noted. Other Family history of diabetes mellitus Family history of hypertension Social History Within the past year, how often did you have a drink containing alcohol: never Within the past year, how often did you have six or more drinks on one occasion: never Score interpretation: A score less than 3 is consistent with normal alcohol consumption. Smoking status: Never smoker Non-prescribed substance use: denies use Previous occupational history: retired Highest level of school completed/degree received: some college, no degree Are you now , , , , never or living with a partner: In a typical week, how many times do you talk on the telephone with family, friends, or neighbors: 3 or more times per week How often do you get together with friends or relatives: 3 or more times per week How often do you attend mandaeism or religion services: 4 or more times per year Do you belong to any clubs or organizations such as mandaeism groups unions, fraternal or athletic groups, or school groups: yes Total score: 3 Score interpretation: A score of greater than or equal to 2 indicates the lowest level of social isolation. Little interest or pleasure in doing things: not at all Feeling down, depressed, or hopeless: not at all Feel stressed/tense/nervous/anxious/difficulty sleeping: not at all Exam Narrative Exam Narrative: General: No distress, age-appropriate Skin: Warm, dry, no pallor. No rash. Head: Normocephalic, atraumatic. Neck: Supple, non-tender. Eye: Pupils are equal, round and EOMI. No scleral icterus. Ears, Nose, Mouth, and Throat: No nasal mucosal hypertrophy. Oral mucosa is moist, no posterior oropharynx erythema, uvula is mid-line Cardiovascular: Regular Rate and Rhythm without murmur, gallop or rub. Respiratory: No accessory muscle use or respiratory distress. Lungs are clear to auscultation, no wheezing, rales or rhonchi Back: No midline thoracic or lumbar vertebral tenderness. Musculoskeletal: Full ROM of all extremities, no calf or popliteal tenderness. Patient able to make a full fist right hand, there is swelling and ecchymosis over the dorsal distal radius with tenderness with palpation. Hematoma able to be palpated. 2+ radial pulse palpated. Sensation intact distally with light touch. Neurological: A&O x4. No cranial nerve dysfunction observed. No truncal ataxia. Moves all extremities. Sensation intact. Psychiatric: Cooperative and interactive. Normal mood and affect. Constitutional Vital Signs, click to edit/add: Last Vital Signs Temp 98.2 F 09/23/25 15:24 Pulse 77 09/23/25 15:24 Resp 16 09/23/25 15:24 BP 148/67 H 09/23/25 15:24 Pulse Ox 96 09/23/25 15:24 O2 Del Method Room Air 09/23/25 15:24 Documenting provider has reviewed patient's vital signs: yes Course Vital Signs Vital signs: Vital Signs Temperature 98.2 F 09/23/25 15:24 Pulse Rate 77 09/23/25 15:24 Respiratory Rate 16 09/23/25 15:24 Blood Pressure 148/67 H 09/23/25 15:24 Pulse Oximetry 96 09/23/25 15:24 Oxygen Delivery Method Room Air 09/23/25 15:24 Temperature 98.2 F 09/23/25 15:24 Pulse Rate 77 09/23/25 15:24 Respiratory Rate 16 09/23/25 15:24 Blood Pressure 148/67 H 09/23/25 15:24 Pulse Oximetry 96 09/23/25 15:24 Oxygen Delivery Method Room Air 09/23/25 15:24 Medical Decision Making MDM Narrative Medical decision making narrative: 75-year-old female on Xarelto for atrial fibrillation presented with right wrist pain, ecchymosis, and swelling after a FOOSH injury. She reports dorsum swelling and ecchymosis but is able to make a full fist and denies other injuries. X-rays of the right wrist show no fracture. In the ED, pain was controlled with acetaminophen, and an LEXA wrap was applied for support and compression. Given her anticoagulation status, NSAIDs were avoided. The patient was counseled on rest, ice, elevation, and signs of worsening swelling or neurovascular compromise. She is stable for discharge with instructions to follow up with her primary care provider or cyber security specialist in 3?7 days or sooner if symptoms worsen. Differential Diagnosis Differential Diagnosis: Wrist hematoma, wrist fracture Imaging Data X-ray right wrist: Attestation: I have reviewed the pertinent imaging results. Radiologist's impression: ITS Impressions Wrist X-Ray 09/23/25 15:51 IMPRESSION: SOFT TISSUE SWELLING WITHOUT ACUTE BONY PROCESS. Impression dictated by: Thaddeus Owens Jr., D.O. 09/23/2025 4:08 PM Dictation Location: [place] [id number] Electronically authenticated by: [id number] Y Date: 09/23/2025 16:08 Discharge Plan Discharge Chief Complaint: Extremity Injury, Upper Clinical Impression: Hematoma of right wrist Patient Disposition: Home, Self-Care Time of Disposition Decision: 16:29 Condition: Good Mode of Transportation: Private Vehicle Prescriptions / Home Meds: No Action buspirone 15 mg tablet 15 mg PO Q12H omeprazole 40 mg capsule,delayed release(DR/EC) 40 mg PO DAILY rosuvastatin 5 mg tablet 5 mg PO Q48H venlafaxine 150 mg capsule,extended release 24hr 150 mg PO DAILY aspirin 81 mg Tablet,Delayed Release (Dr/Ec) 81 mg PO QD Qty: 90 1RF Xarelto 20 mg tablet 20 mg PO DAILY Qty: 30 5RF Rx Instructions: must administer with evening meal Xarelto 20 mg tablet 20 mg PO DAILY Qty: 30 4RF Rx Instructions: must administer with evening meal diltiazem HCl [Cardizem CD] 120 mg capsule,extended release 24hr 120 mg PO DAILY Qty: 60 1RF metoprolol succinate [Toprol XL] 50 mg tablet extended release 24 hr 50 mg PO DAILY Qty: 60 1RF losartan 50 mg tablet venlafaxine 75 mg capsule,extended release 24hr PO losartan 25 mg tablet Print Language: Hebrew Instructions: Wrist Injury (ED) Additional Instructions: Diagnosis: Wrist contusion/hematoma (X-ray negative for fracture) 1. Activity * Rest the wrist as much as possible for the next 48?72 hours. * Avoid heavy lifting or activities that worsen pain or swelling. * You may use the hand for light daily activities if it is comfortable. 2. Ice & Elevation * Apply a cold pack to the wrist for 15?20 minutes every 2?3 hours for the first 24?48 hours. * Keep your wrist elevated above the level of your heart as much as possible to reduce swelling. 3. Compression * If comfortable, you may use a soft wrist wrap or elastic bandage to support the wrist. * Ensure it is not too tight to avoid cutting off circulation. 4. Pain Management * Avoid NSAIDs (ibuprofen, naproxen) due to your use of Xarelto (rivaroxaban), which increases bleeding risk. * Acetaminophen (Tylenol) may be used as needed, following the recommended dosing: * Do not exceed 3,000 mg in 24 hours (or 2,000 mg if you have liver disease). 5. Signs to Watch For Call 911 or return to the ER immediately if you experience: * Rapidly increasing pain, swelling, or bruising * Numbness, tingling, or weakness in the fingers * Severe bleeding or hematoma * Inability to move your fingers or wrist 6. Follow-Up * Follow up with your primary care provider, or sooner if symptoms worsen. * If swelling does not improve or pain increases, a repeat X-ray or further imaging (e.g., wrist CT/MRI) may be needed. 7. Medication * Continue Xarelto as prescribed. * Do not start any new blood-thinning medications or NSAIDs without consulting your doctor. Referrals: CHRISTINA JARVIS [Primary Care Provider, Family Practice] - 1 week
[2025-09-23] MEDS: ACETAMINOPHEN 325 MG TABLET 650 MG PO (16:04)
--- OUTSIDE RECORDS SUMMARY | 2025-09-23 16:23 | XMS_ITS | CCD ---
Author Organization [facility] Care Team Providers Care Qualification Engineer Name Role Phone BEVERLY GARCIAIL Admitting Unavailable BEVERLY GARCIAIL Attending Unavailable CHRISTINA JARVIS Referring Unavailable CHRISTINA JARVIS Primary Care Unavailable [place] Procedure Practitioner Unavailab le PETE GARCIA Surgeon [...] Gao, DR MARY Pham Admitting Unavaila ble KANDIILLIFaiza ., DR MARY Pham Attending Unavaila ble MATHEUS, DR VASQUEZ Primary Care Unavailable YADIRA ., DR MARY Pham Consulting Unavaila ble FILI II, SUSANA Consulting Unavailable NIKOLE HARE Unavailable DO Christina Jarvis Primary Care Provider DO Christina Jarvis Attending Provider DO Christina Jarvis Primary Care Provider DO Christina Jarvis Attending Provider [phone] Christina Jarvis DO Primary Care Provider Christina Jarvis DO Attending Provider Christina Jarvis Attending Unavailable Christina Jarvis Admitting Unavailable Christina Jarvis Primary Care Unavailable Christina Jarvis Attending Unavailable Christina Jarvis Admitting Unavailable Christina Jarvis Primary Care Unavailable Allergies Allergy ClassificationReported Allergen(s)Allergy TypeDate of OnsetReaction(s) Facility (5 sources)Acetaminophen / HYDROcodoneDrug Allergyhives?[employer] Other (10 sources)atorvastatinDrug Qcqyntd79-81-1265syc painHolzer Health System (10 sources)ezetimibeDrug Prgsmml68-29-7586qraj't likeHolzer Health System (6 sources)Acetaminophen; Translations: [acetaminophen]Drug Rfcrweh52-68-5700 hives?[facility] (6 sources)HYDROcodone; Translations: [hydrocodone]Drug Ymamrpl02-44-2357cszkd? [facility] (1 source)atorvastatinDrug Jcstxqs24-36-4378DbuuqrmxhHolzer Health System Repository (1 source)ezetimibeDrug Tqcvcos23-02-8475ObcuovqxlHolzer Health System Repository Medications Current Medications MedicationDrug Class(es)DatesSig (Normalized)Sig [...] ActiveLifitegrast (Xiidra) 5 % dropperette (2 sources)Start: 24-36-9191Lijjldeokuo (Xiidra) 5 % dropperette Active DROPS OPHTHALMIC May 27, 2024 11:00pmStart: 63-71-3088Gcsrqzeecqc (Xiidra) 5 % dropperette Active DROPS OPHTHALMIC May 28, 2024 12:00amlosartan potassium 50 mg oral tablet (20 sources)Angiotensin 2 Receptor BlockerStart: 24-55-0999pyxt 1 tablet by mouth once dailyStart: 06-07-2024 End: 36-32-1608ofit 1 tablet by mouth once dailyLosartan 50 mg tablet Discontinued 0 .ROUTE .COMPLEX May 14, 2025 2:21pm June 12, 2025 9:3 0am TAKE 1 TABLET BY MOUTH EVERY DAYStart: 03-08-2024 End: 07-96-1239jaap 1 tablet by mouth once dailyLosartan 50 mg tablet Discontinued 50 MG PO Daily March 08, 2024 10:23am June 07, 2024 9:22am Losartan Potassium 50 mg TAKE 1 TABLET DAILY RwlbbyNkjwyfny-Emd-Kand-Fa-Vit K- Lut (Centrum Silver Women) 8 mg iron-400 mcg-50 mcg tablet (4 sources)Start: 70-46-6716djve 1 tablet by mouth once daily Ivmrlias-Dto-Wtoh-Fa-Vit K-Lut (Centrum Silver Women) 8 mg iron-400 mcg-50 mcg tablet Active 1 TAB PO Daily May 28, 2024 12:00am Complies with drug therapy Start: 40-19-9538qvhf 1 tablet by mouth once dailyStart: 06-91-4284coai 1 tablet by mouth once cvtvhAohdctky-Kxf-Houf-Fa-Vit K-Lut (Centrum Silver Women) 8 mg iron-400 mcg-50 mcg tablet Active 1 TAB PO Daily May 27, 2024 11:00pmStart: 50-37-2661auiz 1 tablet by mouth once tfgvhDqdktbiy-Kfa-Iede-Fa-Vit K-Lut (Centrum Silver Women) 8 mg iron-400 mcg-50 mcg tablet Active 1 TAB PO Daily May 28, 2024 12:00amomeprazole 40 mg delayed release oral capsule (20 sources)Proton Pump InhibitorStart: 05-28-2024 End: 74-41-7863Qukosvayyf 40 mg capsule,delayed release(DR/EC) Active 40 MG PO .COMPLEX August 01, 2024 8:13am 40 mg orally TAKE 1 CAPSULE BY MOUTH EVERY DAY 30 MINUTES BEFORE MORNING MEAL; Complies with drug therapyStart: 05-01-2024 End: 64-02-3293Gqlnasuesc 40 mg capsule,delayed release(DR/EC) Discontinued 0 .ROUTE .COMPLEX May 01, 2024 12:00pm May 28, 2024 2:56pm TAKE 1 CAPSULE BY MOUTH EVERY DAY 30 MINUTES BEFORE MORNING MEAL FOR 90 DAYSStart: 02-20-2024 End: 16-66-0237lujs 1 capsule by mouth once daily at mealtimeOmeprazole 40 mg capsule,delayed release(DR/EC) Discontinued 40 MG PO Daily February 20, 2024 3:05pmJuly 2023 12:00pm 30 min prior to a mealStart: 02-20-2024 End: 11-76-8805qddf 1 capsule by mouth every other day at mealtimeOmeprazole 40 mg capsule,delayed release(DR/EC) Discontinued 40 MG PO .QOD February 20, 2024 12:00amApril 2023 3:05pm 30 min prior to a mealOmeprazole 40 MG 1 capsule 30 min prior to a meal Orally qod Activerosuvastatin calcium 5 mg oral tablet (20 sources)HMG-CoA Reductase InhibitorStart: 86-34-1271mzwh 1 tablet by mouth every other dayStart: 06-06-2024 End: 11-84-3959sqop 1 tablet by mouth every other dayRosuvastatin 5 mg tablet Discontinued 0 .ROUTE .COMPLEX May 14, 2025 2:21pm June 1259:30am TAKE 1 TABLET BY MOUTH EVERY OTHER DAYStart: 03-08-2024 End: 75-32-4379dpdl 1 tablet by mouth every other dayRosuvastatin [...] Zoster Virus Nucleoside Analog DNA Polymerase InhibitorStart: 10-14-2705ynqb 1 tablet by mouth every eight hoursValtrex 1 GM 1 tablet Orally tid for 7 days Jan, Yytkxl02 hr venlafaxine 150 mg extended release oral tablet (20 sources)Serotonin and Norepinephrine Reuptake InhibitorStart: 31-41-0400smmq 1 capsule by mouth once dailyVenlafaxine 75 mg capsule,extended release 24hr Active 75 MG PO daily June 12, 2025 12:00am Complies with drug therapyStart: 08-31-2024 End: 60-80-2755vbtr 1 capsule by mouth once daily in the morningVenlafaxine 150 mg capsule,extended release 24hr Discontinued 150 MG PO Every morning August 1:00am June 12, 2025 9:22amStart: 05-28-2024 End: 37-58-3809ogkn 1 tablet by mouth once dailyVenlafaxine 150 mg tablet extended release 24hr Active 150 MG PO Daily June 12, 2025 9:24am Dr Arnett Complies with drug therapyStart: 05-28-2024 End: 99-31-8185gbyc 1 capsule by mouth once dailyVenlafaxine 75 mg capsule,extended release 24hr Discontinued 75 MG PO Daily May 28, 2024 12:00am August 31, 2024 12:43pmtake 1 tablet by mouth every twenty-four hours Venlafaxine HCl ER 150 MG 1 tablet with food Orally Once a day Active Completed/Discontinued Medications MedicationDrug Class(es)DatesSig (Normalized)Sig (Original)busPIRone hydrochloride 15 mg oral tablet (17 sources)Start: 05-28-2024 End: 05-47-1348vhwd 1 tablet by mouth twice daily, then [...] (2 sources)Lymphocyte Function-Associated Antigen-1 AntagonistStart: 05-28-2024 End: 90-77-0469Olengwqtgqc (Xiidra) 5 % dropperette Discontinued DROPS OPHTHALMIC May 28, 2024 12:00am June 12, 2025 9:21am Problems Active Problems Problem ClassificationProblemDateDocumented DateEpisodic/ChronicComplications of surgical procedures or medical care (3 sources)Periprosthetic fracture around internal prosthetic left hip joint, initial encounter; Translations:[PERIPROSTH FRACTURE AROUND INTERNAL PROSTH L HIP JT, INIT]Onset: 11-85-5843Iywlhpdn mellitus without complication (9 sources)Hyperglycemia, unspecified; Translations: [Hyperglycemia]Onset: 01-08-2022 Resolved: 63-40-2705YybshydxOjtzfade of white blood cells (5 sources)Decreased blood leukocyte number; Translations: [Decreased white blood cell count, unspecified]ChronicDisorders of lipid metabolism (15 sources)Hyperlipidemia; Translations: [Hyperlipidemia, unspecified]Onset: 01-08-2022 Resolved: 51-65-3646RpjfpagDornnvpkq of lipid metabolism (1 source)Pure hypercholesterolemia, unspecified; Translations: [PURE HYPERCHOLESTEROLEMIA, UNSPECIFIED]Onset: 01-74-5696Extewvldxlebnr and diverticulitis (1 source)Diverticulosis of large intestine without perforation or abscess without bleeding; Translations: [DVRTCLOS LG INT NO PERF/ABSC W/O BL]Onset: 21-31-2725FguqibbJejhosbto hypertension (15 sources)Essential (primary) hypertension; Translations: [Hypertensive disorder]Onset: 10-01-2018 Resolved: 22-98-6511HgwlzazHxnetfju of lower limb (4 sources)Unspecified fracture of left femur, subsequent encounter for closed fracture with routine healing; Translations: [UNSP FRACTURE OF LEFT FEMUR, SUBS FOR CLOS FX W ROUTN HEAL]Onset: 38-27-9390GkkqvnsyWcpreofto and duodenitis (1 source)Unspecified chronic gastritis without bleeding; Translations: [UNS CHRONIC GASTRITIS W/O BLEEDING]Onset: 06-80-1572YjwayjeRopggesxz and duodenitis (8 sources)Gastritis; Translations: [Gastritis, unspecified, without bleeding] EpisodicGastroduodenal ulcer (except hemorrhage) (1 source)Gastric ulcer, unspecified as acute or chronic, without hemorrhage or perforation; Translations: [GASTR ULCR UNS AC/CHRN W/O HEM/PERF]Onset: 63-68-4038NaxnlhgZlvrpgamnkpan symptoms and ill-defined conditions (9 sources)Hematuria, unspecified; Translations: [Blood in urine]Onset: 01-08-2022 Resolved: 05-39-9087UulmskttSayd disorders (12 sources)Major depressive disorder, single episode, unspecified; Translations: [Depression]Onset: 01-08-2022 Resolved: 81-85-8688YkptwkyNemo disorders (2 sources)Major depressive disorder, single episode, unspecified; Translations: [Mood disorders]Onset: 93-19-6859Eggjdpwuucascq (8 sources)Unilateral primary osteoarthritis, right hip; Translations: [Unilateral primary osteoarthritis, right knee]Onset: 08-84-2402AhjedkiZfekl aftercare (4 sources)Other nursing home (current) drug therapy; Translations: [OTH CARE HOME CURRENT DRUG THERAPY]Onset: 01-08-2022 Resolved: 23-89-8119VozimpukFgoea aftercare (2 sources)Removal of sutures done; Translations: [Encounter for removal of sutures]98-57-2793FtsswjnbUwbwl and unspecified benign neoplasm (1 source)Benign neoplasm of sigmoid colon; Translations: [BENIGN NEOPLASM OF SIGMOID COLON]Onset: 90-63-3153GvouuykgGemsb and unspecified benign neoplasm (1 source)Benign neoplasm of transverse colon; Translations: [BENIGN NEOPLASM OF TRANSVERSE COLON]Onset: 83-64-1516ZrxkywymWtpbh and unspecified benign neoplasm (1 source)Polyp of stomach and duodenum; Translations: [POLYP OF STOMACH AND DUODENUM]Onset: 19-19-9054HiswrctmQnxkt connective tissue disease (2 sources)Presence of left artificial hip joint; Translations: [PRESENCE OF LEFT ARTIFICIAL HIP JOINT]Onset: 96-57-1829EqeozeeOasld connective tissue disease (2 sources)Other specified soft tissue disorders; Translations: [OTHER SPECIFIED SOFT TISSUE DISORDERS]Onset: 74-97-5901TclcfzuoNrdod gastrointestinal disorders (4 sources)Other fecal abnormalities; Translations: [OTHER FECAL ABNORMALITIES] Onset: 59-34-7443WfhlhslrMzrqg nervous system disorders (2 sources)Impairment of balance; Translations: [Other abnormalities of gait and mobility]49-83-8696BisrcabvKnidm nervous system disorders (1 source)Other abnormalities of gait and mobility; Translations: [Other abnormalities of gait and mobility]Onset: 66-61-0804ArsfdsouZdqlu nutritional; endocrine; and metabolic disorders (1 source)Obesity, unspecified; Translations: [OBESITY UNSPECIFIED]Onset: 71-30-0661ImfyvtmFxyhm nutritional; endocrine; and metabolic disorders (1 source)Body mass index (BMI) 33.0-33.9, adult; Translations: [BODY MASS INDEX BMI 33.0-33.9 ADULT]Onset: 84-36-3969FwsmexjZoppy nutritional; endocrine; and metabolic disorders (3 sources)Abnormal weight loss; Translations: [Abnormal weight loss]Onset: 01-08-2022 Resolved: 77-91-2338XjouuwztUrpbu nutritional; endocrine; and metabolic disorders (2 sources)Intentional weight leax49-76-1527ObusazaaLolyx screening for suspected conditions (not mental disorders or infectious disease) (5 sources)Abnormal findings on diagnostic imaging of breast; Translations: [Other abnormal and inconclusive findings on diagnostic imaging of breast] EpisodicSpondylosis; intervertebral disc disorders; other back problems (1 source)Spondylosis without myelopathy or radiculopathy, lumbar region; Translations: [SPONDYLOSIS W/O MYELOPATHY OR RADICULOPATHY, LUMBAR REGION]Onset: 00-10-3780NotnufbVydzigzapbqz (1 source)LEFT PERIPROSTHETIC FRACTUREOnset: 87-34-1443Vajhhldowrlu (1 source)LEFT FEMUR FXOnset: 45-93-6925Yscobojwpypb (1 source)ESOPHAGITIS UNSPEC WITHOUT BLEEDING; Translations: [ESOPHAGITIS UNSPEC WITHOUT BLEEDING]Onset: 12-29-2022 Past or Other Problems Problem ClassificationProblemDateDocumented DateEpisodic/ChronicComplication of device; implant or graft (1 source)Fracture of femur following insertion of orthopedic implant, joint prosthesis, or bone plate, left leg; Translations: [FX FEMUR FOL INSRT ORTHO IMPLNT/PROSTH/BONE PLT, LEFT LEG]Onset: 48-14-2234YqywtisuYcvegasmmi and other anemia (1 source)Anemia, unspecified; Translations: [ANEMIA, UNSPECIFIED]Onset: 54-21-2130BhcoxhfzVeclg and electrolyte disorders (1 source)Hypo-osmolality and hyponatremia; Translations: [HYPO-OSMOLALITY AND HYPONATREMIA]Onset: 68-79-8954CvjgzuubTdrrh connective tissue disease (1 source)Pain in unspecified footOnset: 01-08-2022 Resolved: 24-74-7107Afpptven Results Test NameValueInterpretationReference AbmptXcirubgsB2V with Estimated Average Gluon 54-01-8533Vrmdaea [Mass/Vol]111 mg/dLNormSelect Medical [facility], [facility]wo[facility] Comment on above:Result Comment: PERFORMED BY: [place] [address] PATHOLOGIST FOOD AND BEVERAGE ASSISTANT MANAGER CHAMP COATES M.D.Performed By: #### CUU, ADDONUAPLUS, A1C WTH eA, CBC, CMP, LIPID, TSH3 #### [address] StreetAlanine aminotransferase [Enzymatic activity/volume] in Serum or PlasmaOrdered By: Christina Jarvis on 97-94-8209LGG [Catalytic activity/Vol]19 U/LNormal7-52[facility] SystemComment on above: Performed By: #### CUU, ADDONUAPLUS, A1C WTH eA, CBC, CMP, LIPID, TSH3 #### [facility] [address] [place] [address] USAAlbumin [Mass/volume] in Serum or Plasma by Bromocresol green (BCG) dye binding methoOrdered By: Christina Jarvis on 60-04-5111Emvqawk BCG dye [Mass/Vol]4.2 g/dL3.5-5.7FMetroHealth Parma Medical CenterAlkaline phosphatase [Enzymatic activity/volume] in Serum or PlasmaOrdered By: Christina Jarvis on 11-70-2008QIX [Catalytic activity/Vol]78 U/WPajprc22-304MpmtluymeHolzer Health SystemComment on above:Performed By: #### CUU, ADDONUAPLUS, A1C WTH eA, CBC, CMP, LIPID, TSH3 #### [facility] [address] [place] [id number] USAAppearance of UrineOrdered By: Christina Jarvis on 06-10-2025 Appearance (U)ClearNormalClearHolzer Health SystemComment on above: Order Comment: Name Collection Type:: Clean-Voided MidstreamPerformed By: #### CUU, ADDONUAPLUS, A1C WTH eA, CBC, CMP, LIPID, TSH3 #### [facility] [address] [place] [address] USAAspartate aminotransferase [Enzymatic activity/volume] in Serum or PlasmaOrdered By: Christina Jarvis on 99-73-4023NFL [Catalytic activity/Vol]21 U/YPtyxwc19-36CyifskmuqHolzer Health SystemComment on above: Performed By: #### CUU, ADDONUAPLUS, A1C WTH eA, CBC, CMP, LIPID, TSH3 #### [facility] [address] [place] [address] USABacteria [Presence] in Urine by AutomatedOrdered By: Christina Jarvis on 72-36-5673Sdwuqvjk Auto Ql (U)None seen [HPF]None SeenFirelands Regional Medical CenterBasophils [#/volume] in Blood by Automated countOrdered By: Christina Jarvis on 80-37-4000Ozhyrtjiz (Bld) [#/Vol]0.0 10*3/uLNormal0.0-0.2 [facility] SystemComment on above:Result Comment: PERFORMED BY: [place] [address] PATHOLOGIST FOOD AND BEVERAGE ASSISTANT MANAGER CHAMP COATES M.D.Performed By: #### CUU, ADDONUAPLUS, A1C WTH eA, CBC, CMP, LIPID, TSH3 #### [facility] [address] [place] [address] USABasophils/100 leukocytes in Blood by Automated count Ordered By: Christina Jarvis on 43-58-8718Nprjczwvu/100 WBC (Bld)0.8 %Normal. [facility] SystemComment on above:Performed By: #### CUU, ADDONUAPLUS, A1C WTH eA, CBC, CMP, LIPID, TSH3 #### [facility] [address] [place] [address] USABilirubin Test strip Ql (U)Ordered By: Christina Jarvis on 64-19-8409Ofijjeqvz Ql (U)NegativeNegativeHolzer Health System Bilirubin.total [Mass/volume] in Serum or PlasmaOrdered By: Christina Jarvis on 84-59-1917Jmqzposir [Mass/Vol]0.5 mg/dLNormal0.3-1.0[facility] SystemComment on above:Performed By: #### CUU, ADDONUAPLUS, A1C WTH eA, CBC, CMP, LIPID, TSH3 #### [facility] [address] [place] [address] USABlood estimated average glucose determination by estimation from glycated hemoglobinOrdered By: Christina Jarvis on 73-43-1236Tappyfd glucose Estimated from glycated hemoglobin (Bld) [Mass/Vol]111 mg/dLHolzer Health SystemCalcium [Mass/volume] in Serum or PlasmaOrdered By: Christina Jarvis on 28-80-9012Wkdqjvx [Mass/Vol]9.9 mg/dLNormal8.6-10.3FMetroHealth Parma Medical CenterComment on above:Performed By: #### CUU, ADDONUAPLUS, A1C WTH eA, CBC, CMP, LIPID, TSH3 #### [facility] [address] [place] [address] USACarbon dioxide, total [Moles/volume] in Serum or Plasma Ordered By: Christina Jarvis on 81-52-1493GP1 [Moles/Vol]28.6 mmol/LPlirtn09.0-31.0 [facility] SystemComment on above:Performed By: #### CUU, ADDONUAPLUS, A1C WTH eA, CBC, CMP, LIPID, TSH3 #### [facility] [address] [place] [id number] USAChloride [Moles/volume] in Serum or PlasmaOrdered By: Christina Jarvis on 41-03-1537Rlnkwdzs [Moles/Vol]103 mmol/WLqvbah94-924BsclxiftaHolzer Health SystemComment on above:Lipemia is present at a level that could interfere with the result.Hemolysis is present at a level that could interfere with the result.Result Comment: Lipemia is present at a level that could interfere with the result. Hemolysis is present at a level that could interfere with the result.Performed By: #### CUU, ADDONUAPLUS, A1C WTH eA, CBC, CMP, LIPID, TSH3 #### [facility] [address] [place] [id number] USACholesterol [Mass/volume] in Serum or PlasmaOrdered By: Christina Jarvis on 66-92-2722Jmuhtvexwmi [Mass/Vol]158 mg/aTLjtrwn492-839VmibbboutHolzer Health SystemComment on above:Chol less than 200 mg/dl low riskChol 201-239 mg/dl borderline riskChol 240 mg/dl and greater high riskResult Comment: Chol less than 200 mg/dl low risk Chol 201-239 mg/dl borderline risk Chol 240 mg/dl and greater high riskPerformed By: #### CUU, ADDONUAPLUS, A1C WTH eA, CBC, CMP, LIPID, TSH3 #### [facility] [address] [place] [address] USACholesterol in HDL [Mass/volume] in Serum or PlasmaOrdered By: Christina Jarvis on 69-40-4169Ifjyzqpnseq in HDL [Mass/Vol]45 mg/aBQnpcua35-81 [facility] SystemComment on above:HDL CHOL ATP-III CLASSIFICATION Cardiovascular RiskHDL > or equal to 60 mg/dL LOWHDL < 40 mg/dL HIGHResult Comment: HDL CHOL ATP-III CLASSIFICATION Cardiovascular Risk HDL > or equal to 60 mg/dL LOW HDL < 40 mg/dL HIGHPerformed By: #### CUU, ADDONUAPLUS, A1C WTH eA, CBC, CMP, LIPID, TSH3 #### [facility] [address] [place] [address] USACholesterol in LDL Calc [Mass/Vol]Ordered By: Christina Jarvis on 17-18-1685Kwhehqanoqz in LDL [Mass/Vol]80 mg/dL0-100[facility] SystemComment on above:LDL ATP III CLASSIFICATIONLDL less than 100 mg/dL OptimalLDL 100-129 mg/dL Near or above kpwirlmEPM366-193 mg/dL Borderline highLDL 160-189 mg/dL HighLDL greater than 189 mg/dL Very highCholesterol in VLDL Calc [Mass/Vol]Ordered By: Christina Jarvis on 02-99-3692Bxjbtbyzhfx in VLDL [Mass/Vol]32 mg/dLHolzer Health SystemColor of Urine by AutoOrdered By: Christina Jarvis on 29-63-3698Cgxdl (U)Light-yellowNormalYellowHolzer Health SystemComment on above:Order Comment: Name Collection Type:: Clean-Voided MidstreamPerformed By: #### CUU, ADDONUAPLUS, A1C WTH eA, CBC, CMP, LIPID, TSH3 #### [facility] [address] [place] [address] USAComplete Blood Count Auto Diffon 74-70-3052Eirm Corpuscular HGB Conc33.1 g/sOXktrdk45.0-35.0The [facility] Physician GroupComment on above:Performed By: #### CUU, ADDONUAPLUS, A1C WTH eA, CBC, CMP, LIPID, TSH3 #### [facility] [address] [place] [address] USANRBC%0.2 /100{WBC}Normal0-0.5The [facility] Comment on above:Performed By: #### CUU, ADDONUAPLUS, A1C WTH eA, CBC, CMP, LIPID, TSH3 #### [place] [address] USAWhite Blood Count4.3 [CFU]/mLNormal3.8-11.6The [facility] Physician GroupComment on above:Performed By: #### CUU, ADDONUAPLUS, A1C WTH eA, CBC, CMP, LIPID, TSH3 #### [place] [address] USAComprehensive Metabolic Panelon 16-34-8095Zdgbxik [Mass/Vol]4.2 g/dLNormal3.5-5.7The [facility] Physician GroupComment on above: Performed By: #### CUU, ADDONUAPLUS, A1C WTH eA, CBC, CMP, LIPID, TSH3 #### [place] [address] USAGFR/1.73 sq M.predicted MDRD (S/P/Bld) [Vol rate/Area] mL/min/{1.73_m2}NormalThe [facility] Physician [facility] HospitalComment on above:Performed By: #### CUU, ADDONUAPLUS, A1C WTH eA, CBC, CMP, LIPID, TSH3 #### [place] [address] USACreatinine [Mass/volume] in Serum or PlasmaOrdered By: Christina Jarvis on 49-54-0596Aaxnmwccxm [Mass/Vol]0.82 mg/dLNormal0.60-1.20 [facility] SystemComment on above:Performed By: #### CUU, ADDONUAPLUS, A1C WTH eA, CBC, CMP, LIPID, TSH3 #### [place] [id number] USADipstick and Microscopicon 51-69-4551Stbawuei,UrineNone SeenNormalNone SeenThe [facility] Physician GroupComment on above:Order Comment: Name Collection Type:: Clean-Voided MidstreamPerformed By: #### CUU, ADDONUAPLUS, A1C WTH eA, CBC, CMP, LIPID, TSH3 #### [place] [address] USABilirubin,UrineNegativeNormalNegativeJackson Hospital Physician GroupComment on above:Order Comment: Name Collection Type:: Clean- Voided MidstreamPerformed By: #### CUU, ADDONUAPLUS, A1C WTH eA, CBC, CMP, LIPID, TSH3 #### [place] [address] USAGlucose Ql (U)NormalNormalNormalThBoise Veterans Affairs Medical Center Physician GroupComment on above:Order Comment: Name Collection Type:: Clean-Voided MidstreamPerformed By: #### CUU, ADDONUAPLUS, A1C WTH eA, CBC, CMP, LIPID, TSH3 #### [place] [address] USAHyaline Casts,UrineNoneNormal0-8The [facility] Physician GroupComment on above:Order Comment: Name Collection Type:: Clean-Voided MidstreamPerformed By: #### CUU, ADDONUAPLUS, A1C WTH eA, CBC, CMP, LIPID, TSH3 #### [place] [address] USAMucus,UrineRareNormalThe [facility] Physician GroupComment on above:Order Comment: Name Collection Type:: Clean-Voided MidstreamResult Comment: PERFORMED BY: [place] [address] PATHOLOGIST FOOD AND BEVERAGE ASSISTANT MANAGER CAHMP COATES M.D.Performed By: #### CUU, ADDONUAPLUS, A1C WTH eA, CBC, CMP, LIPID, TSH3 #### [place] [address] USANitrite,UrineNegativeNormalNegativeJackson Hospital Physician GroupComment on above:Order Comment: Name Collection Type:: Clean-Voided MidstreamPerformed By: #### CUU, ADDONUAPLUS, A1C WTH eA, CBC, CMP, LIPID, TSH3 #### [place] [address] USAOccult Blood,Urine1+NormalNegativeThe [facility] Physician GroupComment on above:Order Comment: Name Collection Type:: Clean-Voided MidstreamResult Comment: PERFORMED BY: [place] [address] PATHOLOGIST FOOD AND BEVERAGE ASSISTANT MANAGER CHAMP COATES M.D.Performed By: #### CUU, ADDONUAPLUS, A1C WTH eA, CBC, CMP, LIPID, TSH3 #### [place] [address] USAProtein,UrineNegativeNormalNegativeThe [facility] Physician GroupComment on above:Order Comment: Name Collection Type:: Clean-Voided MidstreamPerformed By: #### CUU, ADDONUAPLUS, A1C WTH eA, CBC, CMP, LIPID, TSH3 #### [place] [address] USARBC,Pmbzc0-3Jlbnjh0-8Etm [facility] Physician GroupComment on above:Order Comment: Name Collection Type:: Clean-Voided MidstreamPerformed By: #### CUU, ADDONUAPLUS, A1C WTH eA, CBC, CMP, LIPID, TSH3 #### [place] [address] USASpecificy Moody,Urine1.935Naldoc4.001-1.030The [facility] Physician GroupComment on above:Order Comment: Name Collection Type:: Clean- Voided MidstreamPerformed By: #### CUU, ADDONUAPLUS, A1C WTH eA, CBC, CMP, LIPID, TSH3 #### [place] [address] USASquamous Epithelial Cell,Yqulp1-8Vyvfbo7-9Pqq [facility] Physician GroupComment on above:Order Comment: Name Collection Type:: Clean- Voided MidstreamPerformed By: #### CUU, ADDONUAPLUS, A1C WTH eA, CBC, CMP, LIPID, TSH3 #### [facility] [address] [place] [address] USAUrobilinogen,UrineNormalNormalNormalThe [facility] Physician GroupComment on above:Order Comment: Name Collection Type:: Clean- Voided MidstreamPerformed By: #### CUU, ADDONUAPLUS, A1C WTH eA, CBC, CMP, LIPID, TSH3 #### [facility] [address] [place] [address] USAWBC,Bljkl4-4Uvaicn7-3Uuj [facility] [place] Physician GroupComment on above:Order Comment: Name Collection Type:: Clean-Voided MidstreamPerformed By: #### CUU, ADDONUAPLUS, A1C WTH eA, CBC, CMP, LIPID, TSH3 #### [facility] [address] [place] [address] USAEosinophils [#/volume] in Blood by Automated countOrdered By: Christina Jarvis on 43-60-5693Xcyfmqcngij (Bld) [#/Vol]0.1 10*3/uLNormal0.0-0.45 [facility] SystemComment on above:Performed By: #### CUU, ADDONUAPLUS, A1C WTH eA, CBC, CMP, LIPID, TSH3 #### [place] [address] USAEosinophils/100 leukocytes in Blood by Automated count Ordered By: Christina Jarvis on 40-79-3218Eiufkgstruf/100 WBC (Bld)3.1 %Normal. [facility] SystemComment on above:Performed By: #### CUU, ADDONUAPLUS, A1C WTH eA, CBC, CMP, LIPID, TSH3 #### [facility] [address] [place] [address] USAEpithelial cells.squamous [#/area] in Urine sediment by Automated countOrdered By: Chrsitina Jarvis on 22-55-2270Mfqnantyie cells.squamous Auto (Urine sed) [#/Area]1-2 [HPF]0-2FMetroHealth Parma Medical Center Erythrocyte distribution width [Ratio] by Automated countOrdered By: Christina Jarvis on 79-57-9708Gaewbzsradh distribution width (RBC) [Ratio]15.1 %Normal 11.9-15.3FMetroHealth Parma Medical CenterComment on above:Performed By: #### CUU, ADDONUAPLUS, A1C WTH eA, CBC, CMP, LIPID, TSH3 #### [facility] [address] [place] [address] USAErythrocytes [#/area] in Urine sediment by Automated count Ordered By: Christina Jarvis on 79-16-2431GGF Auto (Urine sed) [#/Area]5-9 [HPF]High 0-4FMetroHealth Parma Medical CenterErythrocytes [#/volume] in Blood by Automated countOrdered By: Christina Jarvis on 99-84-8642MBG (Bld) [#/Vol]4.71 10*6/uLNormal3.60-5.00[facility] SystemComment on above: Performed By: #### CUU, ADDONUAPLUS, A1C WTH eA, CBC, CMP, LIPID, TSH3 #### [facility] [address] [place] [address] USAGlomerular filtration rate [Volume Rate/Area] in Serum, Plasma or Blood by CreatinineOrdered By: Christina Jarvis on 20-68-6424Pvfshmiqjz filtration rate [Volume Rate/Area] in Serum, Plasma or Blood by Creatinine> 60.0 mL/MinHolzer Health SystemGlucose [Mass/volume] in Serum or Plasma Ordered By: Christina Jarvis on 26-12-4281Eihzpex [Mass/Vol]105 mg/vVSney53-045 [facility] SystemComment on above:ADA recommended reference rangeRandom Glucose Reference [...] WTH eA, CBC, CMP, LIPID, TSH3 #### [facility] [address] [place] [id number] USAGlucose [Mass/volume] in Urine by Test stripOrdered By: Christina Jarvis on 64-03-7638Ualrgdh Test strip (U) [Mass/Vol]Normal mg/dLNormal [facility] SystemHematocrit [Volume Fraction] of Blood by Automated countOrdered By: Christina Jarvis on 46-50-9420Tbvfpetorc (Bld) [Volume fraction]42.3 %Hzkfsb39.0-46.4FMetroHealth Parma Medical CenterComment on above: Performed By: #### CUU, ADDONUAPLUS, A1C WTH eA, CBC, CMP, LIPID, TSH3 #### [facility] [address] [place] [id number] USAHemoglobin A1c/Hemoglobin.total in BloodOrdered By: Christina Jarvis on 47-44-2654NgY8u (Bld) [Mass fraction]5.5 %Normal4.3-5.6FMetroHealth Parma Medical CenterComment on above:Increased risk for diabetes: 5.7 - 6.4diabetes: >6.4glycemic control for adults with diabetes: <7.0Result Comment: Increased risk for diabetes: 5.7 - 6.4 diabetes: >6.4 glycemic control for adults with diabetes: <7.0Performed By: #### CUU, ADDONUAPLUS, A1C WTH eA, CBC, CMP, LIPID, TSH3 #### [facility] [address] [place] [id number] USAHemoglobin Test strip Ql (U)Ordered By: Christina Jarvis on 43-77-0387Ouezcxcqhm Ql (U)1+HighNegativeHolzer Health System Hemoglobin [Mass/volume] in BloodOrdered By: Christina Jarvis on 06-10-2025 Hemoglobin (Bld) [Mass/Vol]14.0 g/jRRjzxph91.8-15.4FMetroHealth Parma Medical CenterComment on above:Performed By: #### CUU, ADDONUAPLUS, A1C WTH eA, CBC, CMP, LIPID, TSH3 #### [facility] [address] [place] [address] USAHyaline casts [#/area] in Urine sediment by Automated countOrdered By: Christina Jarvis on 49-05-7533Cfsjpxu casts Auto (Urine sed) [#/Area]None [LPF]0-8[facility] Health SystemKetones [Presence] in Urine by Test stripOrdered By: Christina Jarvis on 76-17-7568Gtioxxh Ql (U)Trace NormalNegSelect Medical Specialty Hospital - Cleveland-FairhillComment on above:Order Comment: Name Collection Type:: Clean-Voided MidstreamPerformed By: #### CUU, ADDONUAPLUS, A1C WTH eA, CBC, CMP, LIPID, TSH3 #### [facility] [address] [place] [id number] USALeukocyte esterase [Presence] in Urine by Test strip Ordered By: Christina Jarvis on 67-17-3291Lehaetsbj esterase Test strip Ql (U) NegativeNormalNegSelect Medical Specialty Hospital - Cleveland-FairhillComment on above:Order Comment: Name Collection Type:: Clean-Voided MidstreamPerformed By: #### CUU, ADDONUAPLUS, A1C WTH eA, CBC, CMP, LIPID, TSH3 #### [facility] [address] [place] [id number] USALeukocytes [#/area] in Urine sediment by Automated count Ordered By: Christina Jarvis on 61-62-1500OPL Auto (Urine sed) [#/Area]1-2 [HPF]0-4 [facility] SystemLeukocytes [#/volume] corrected for nucleated erythrocytes in Blood by Automated counOrdered By: Christina Jarvis on 57-95-2955GFZ corrected for nucl RBC Auto (Bld) [#/Vol]4.3 10*3/uL3.8-11.6FMetroHealth Parma Medical CenterLeukocytes [#/volume] in Blood by Automated countOrdered By: Christina Jarvis on 84-89-0807CBU (Bld) [#/Vol]4.3 10*3/uLNormal3.8-11.6FMetroHealth Parma Medical CenterComment on above:Performed By: #### CUU, ADDONUAPLUS, A1C WTH eA, CBC, CMP, LIPID, TSH3 #### [facility] [address] [place] [address] USALipid Panelon 49-73-8651WMR Cholesterol,Vtawyrjzja42 mg/dL Normal0-100The [facility] Huntersville Physician GroupComment on above:Result Comment: LDL ATP III CLASSIFICATION LDL less than 100 mg/dL Optimal LDL 100-129 mg/dL Near or above optimal LDL 130-159 mg/dL Borderline high LDL 160-189 mg/dL High LDL greater than 189 mg/dL Very highPerformed By: #### CUU, ADDONUAPLUS, A1C WTH eA, CBC, CMP, LIPID, TSH3 #### [facility] [address] [place] [address] USATriglyceride w/Pezcgr346 mg/dLHigh0-149The [facility] Physician GroupComment on above:Result Comment: TRIG ATP III CLASSIFICATION TRIG less than 150 mg/dL Normal TRIG 150-199 mg/dL Borderline high TRIG 200-500 mg/dL High TRIG greater than 500 mg/dL Very high Standard traceable to the Center for Disease Conrtrol and Prevention (CDC) test method.Performed By: #### CUU, ADDONUAPLUS, A1C WTH eA, CBC, CMP, LIPID, TSH3 #### [facility] [address] [place] [address] USAVLDL UUPGLORDGFG46 mg/dLNormalThe [facility] [place] Physician [facility] General HospitalComment on above:Performed By: #### CUU, ADDONUAPLUS, A1C WTH eA, CBC, CMP, LIPID, TSH3 #### [facility] [address] [place] [address] USALymphocytes [#/volume] in Blood by Automated countOrdered By: Christina Jarvis on 07-09-8216Iqhceesnzsv (Bld) [#/Vol]1.0 10*3/uLNormal1.00-4.8 [facility] SystemComment on above:Performed By: #### CUU, ADDONUAPLUS, A1C WTH eA, CBC, CMP, LIPID, TSH3 #### [facility] [address] [place] [address] USALymphocytes/100 leukocytes in Blood by Automated count Ordered By: Christina Jarvis on 65-58-1751Koabsaapest/100 WBC (Bld)23.0 %Normal. [facility] SystemComment on above:Performed By: #### CUU, ADDONUAPLUS, A1C WTH eA, CBC, CMP, LIPID, TSH3 #### [facility] [address] [Entitic mass] by Automated countOrdered By: Christina Jarvis on 15-55-0526AJF (RBC) [Entitic mass]29.8 rwOsdbzg10.7-34.3FMetroHealth Parma Medical CenterComment on above:Performed By: #### CUU, ADDONUAPLUS, A1C WTH eA, CBC, CMP, LIPID, TSH3 #### [facility] [address] Auto (RBC) [Mass/Vol]Ordered By: Christina Jarvis on 91-24-4040DWPD (RBC) [Mass/Vol]33.1 g/dL32.0-35.0[facility] Medical CenterV [Entitic volume] by Automated countOrdered By: Christina Jarvis on 65-38-1821CXG (RBC) [Entitic vol]89.9 qSHqsqom88-939UhdmeaaagHolzer Health SystemComment on above:Performed By: #### CUU, ADDONUAPLUS, A1C WTH eA, CBC, CMP, LIPID, TSH3 #### [facility] [address] [place] [address] USAMonocytes [#/volume] in Blood by Automated countOrdered By: Christina Jarvis on 62-73-8651Lgyfcrdyd (Bld) [#/Vol]0.3 10*3/uLNormal0.0-0.8 [facility] SystemComment on above:Performed By: #### CUU, ADDONUAPLUS, A1C WTH eA, CBC, CMP, LIPID, TSH3 #### [facility] [address] [place] [address] USAMonocytes/100 leukocytes in Blood by Automated count Ordered By: Christina Jarvis on 00-74-0328Hbzsdjrcl/100 WBC (Bld)7.6 %Normal. [facility] SystemComment on above:Performed By: #### CUU, ADDONUAPLUS, A1C WTH eA, CBC, CMP, LIPID, TSH3 #### [facility] [address] [place] [address] USAMucus [Presence] in Urine by AutomatedOrdered By: Christina Jarvis on 95-86-1238Tbhjj Auto Ql (U)Rare [LPF][facility] Neutrophils [#/volume] in Blood by Automated countOrdered By: Christina Jarvis on 15-99-2257Uwixepvhgzt (Bld) [#/Vol]2.8 10*3/uLNormal1.8-7.7FMetroHealth Parma Medical CenterComment on above:Performed By: #### CUU, ADDONUAPLUS, A1C WTH eA, CBC, CMP, LIPID, TSH3 #### [facility] [address] [place] [address] USANeutrophils/100 leukocytes in Blood by Automated count Ordered By: Christina Jarvis on 11-00-8615Fclelfbkmrz/100 WBC (Bld)65.5 %Normal. [facility] SystemComment on above:Performed By: #### CUU, ADDONUAPLUS, A1C WTH eA, CBC, CMP, LIPID, TSH3 #### [facility] [address] [place] [address] USANitrite Test strip Ql (U)Ordered By: Christina Jarvis on 30-89-2463Dcrmexl Ql (U)NegativeNegativeHolzer Health SystemNo Panel InformationOrdered By: Christina Jarvis on 70-36-4906Ienuoczc Creatinine Clearance (ChemN/AFMetroHealth Parma Medical CenterNucleated erythrocytes [Presence] in Blood by Automated countOrdered By: Christina Jarvis on 06-10-2025 Nucleated RBC Auto Ql (Bld)0.2 /100{WBC}0-0.5FMetroHealth Parma Medical Center Platelet mean volume [Entitic volume] in Blood by Automated countOrdered By: Christina Jarvis on 18-11-3632Pryshymy mean volume (Bld) [Entitic vol]8.1 fLNormal 6.3-10.7FMetroHealth Parma Medical CenterComment on above:Performed By: #### CUU, ADDONUAPLUS, A1C WTH eA, CBC, CMP, LIPID, TSH3 #### [facility] [address] [place] [address] USAPlatelets [#/volume] in Blood by Automated countOrdered By: Christina Jarvis on 91-28-2632Fqjfdpavq (Bld) [#/Vol]323 10*3/mZFcahdn419-954 [facility] SystemComment on above:Performed By: #### CUU, ADDONUAPLUS, A1C WTH eA, CBC, CMP, LIPID, TSH3 #### [facility] [address] [place] [address] USAPotassium [Moles/volume] in Serum or PlasmaOrdered By: Christina Jarvis on 46-04-1769Cucnisbxq [Moles/Vol]4.1 mmol/LNormal3.5-5.1FMetroHealth Parma Medical CenterComment on above:Lipemia is present at a level that could interfere with the result.Hemolysis is present at a level that could interfere with the result.Result Comment: Lipemia is present at a level that could interfere with the result. Hemolysis is present at a level that could interfere with the result.Performed By: #### CUU, ADDONUAPLUS, A1C WTH eA, CBC, CMP, LIPID, TSH3 #### [facility] [address] [place] [address] USAProtein Test strip (U) [Mass/Vol]Ordered By: Christina Jarvis on 90-19-3943Bfxjacw (U) [Mass/Vol]NegativeNegativeHolzer Health SystemProtein [Mass/volume] in Serum or PlasmaOrdered By: Christina Jarvis on 39-72-4794Vbkkkud [Mass/Vol]6.8 g/dLNormal6.4-8.9[facility] SystemComment on above:Performed By: #### CUU, ADDONUAPLUS, A1C WTH eA, CBC, CMP, LIPID, TSH3 #### [facility] [address] [place] [address] USASerum globulin measurement by calculation (mass/volume) Ordered By: Christina Jarvis on 17-53-5222Xusdapkq (S) [Mass/Vol]2.6 g/dLNormal [facility] SystemComment on above:Performed By: #### CUU, ADDONUAPLUS, A1C WTH eA, CBC, CMP, LIPID, TSH3 #### [facility] [address] [place] [address] USASerum or plasma albumin/globulin mass ratioOrdered By: Christina Jarvis on 27-47-1117Kckzvie/Globulin [Mass ratio]1.6 {ratio}Normal [facility] SystemComment on above:Performed By: #### CUU, ADDONUAPLUS, A1C WTH eA, CBC, CMP, LIPID, TSH3 #### [facility] [address] [place] [address] USASerum or plasma anion gap determinationOrdered By: Christina Jarvis on 76-40-6096Tyqxm gap [Moles/Vol]11.5 mmol/LNormal6.0-15.0[facility] SystemComment on above:Performed By: #### CUU, ADDONUAPLUS, A1C WTH eA, CBC, CMP, LIPID, TSH3 #### [place] [address] USASerum or plasma total cholesterol/high density lipoprotein (HDL) cholesterol mass ratOrdered By: Christina Jarvis on 06-10-2025 Cholesterol.total/Cholesterol in HDL [Mass ratio]3.5 {ratio}Normal<5.0[facility] SystemComment on above:Performed By: #### CUU, ADDONUAPLUS, A1C WTH eA, CBC, CMP, LIPID, TSH3 #### [place] [id number] USASodium [Moles/volume] in Serum or PlasmaOrdered By: Christina Jarvis on 71-88-6580Aoxlys [Moles/Vol]139 mmol/TNvcfai906-582JnvortpopHolzer Health SystemComment on above:Lipemia is present at a level that could interfere with the result.Hemolysis is present at a level that could interfere with the result.Result Comment: Lipemia is present at a level that could interfere with the result. Hemolysis is present at a level that could interfere with the result.Performed By: #### CUU, ADDONUAPLUS, A1C WTH eA, CBC, CMP, LIPID, TSH3 #### [place] [id number] USASpecific gravity Test strip (U) [Rel density]Ordered By: Christina Jarvis on 74-11-4305Xistemuf gravity (U) [Rel density]1.0141.001-1.030 [facility] Health SystemThyrotropin [Units/volume] in Serum or Plasma Ordered By: Christina Jarvis on 53-72-6527IIL Qn2.22 m[IU]/LNormal0.45-5.33[facility] SystemComment on above:Result Comment: PERFORMED BY: [place] [address] PATHOLOGIST [employer] AND B[employer] ASSISTANT MANAGER CHAMP COATES M.D.Performed By: #### MARCUS TERAN, A1C WTH eA, CBC, CMP, LIPID, TSH3 #### [facility] [address] [place] [address] USATriglyceride [Mass/volume] in Serum or PlasmaOrdered By: Chrsitina Jarvis on 28-29-9230Njofsgxttkyh [Mass/Vol]163 mg/dLHigh0-149[facility] SystemComment on above:TRIG ATP III CLASSIFICATIONTRIG less than 150 mg/dL NormalTRIG 150-199 mg/dL Borderline highTRIG 200-500 mg/dL High TRIG greater than 500 mg/dL Very highStandard traceable to the Center for Disease Conrtrol and Prevention (CDC) test method.Urea nitrogen [Mass/volume] in Serum or PlasmaOrdered By: Christina Jarvis on 19-56-3228Tasa nitrogen [Mass/Vol]15 mg/dLNormal7-25[facility] SystemComment on above:Performed By: #### BOB TERANONJARRETPLUS, A1C WTH eA, CBC, CMP, LIPID, TSH3 #### [facility] [address] [place] [address] USAUrine Cultureon 09-69-5417Emmonssv identified Cx Nom (U) >100,000 colonies/ml mixed bacterial skin contaminants 2 Days PERFORMED BY: [place] [address] PATHOLOGIST FOOD AND BEVERAGE ASSISTANT MANAGER CHAMP COATES M.D.NormalThe [facility] Health Huntersville Physician GroupComment on above: Performed By: #### ANSONU, ADDONUAPLUS, A1C [facility] eA, CBC, CMP, LIPID, TSH3 #### [facility] [address] [place] [address] USAUrobilinogen Test strip (U) [Mass/Vol]Ordered By: Christina Jarvis on 27-78-8323Bnhziewzqmwk (U) [Mass/Vol]Normal mg/dLNormalHolzer Health SystempH of Urine by Test stripOrdered By: Christina Jarvis on 80-57-2845lS (U)6.0 [pH]Normal5.0-9.0[facility] SystemComment on above:Order Comment: Name Collection Type:: Clean-Voided MidstreamPerformed By: #### CUU, ADDONUAPLUS, A1C [facility] eA, CBC, CMP, LIPID, TSH3 #### [facility] [address] [place] [id number] USAAlanine aminotransferase [Enzymatic activity/volume] in Serum or PlasmaOrdered By: Christina Jarvis on 87-32-8414YUD [Catalytic activity/Vol]25 U/L7-52[facility] SystemAlbumin [Mass/volume] in Serum or Plasma by Bromocresol green (BCG) dye binding methoOrdered By: Christina Jarvis on 36-95-0660Ivdbmto BCG dye [Mass/Vol]4.1 g/dL3.5-5.7FMetroHealth Parma Medical CenterAlkaline phosphatase [Enzymatic activity/volume] in Serum or PlasmaOrdered By: Christina Jarvis on 48-83-4795APC [Catalytic activity/Vol]84 U/L 34-104Holzer Health SystemAspartate aminotransferase [Enzymatic activity/volume] in Serum or PlasmaOrdered By: Christina Jarvis on 05-94-2282NLO [Catalytic activity/Vol]25 U/I31-87IwwxlxdfdHolzer Health SystemBacteria [Presence] in Urine by AutomatedOrdered By: Christina Jarvis on 31-24-7209Etpmuhcb Auto Ql (U)None seen [HPF]None SeenHolzer Health SystemBasophils Auto (Bld) [#/Vol]Ordered By: Christina Jarvis on 69-31-5223Daqzdsuxx (Bld) [#/Vol] 0.0 10*3/uL0.0-0.2FMetroHealth Parma Medical CenterBasophils/100 WBC Auto (Bld) Ordered By: Christina Jarvis on 23-97-4972Uowvrsqit/100 WBC (Bld)1.0 %.Hol[facility] Health SystemBilirubin Test strip Ql (U)Ordered By: Christina Jarvis on 97-72-1615Kheeikxbc Ql (U)NegativeNegativeHolzer Health System Bilirubin.total [Mass/volume] in Serum or PlasmaOrdered By: Christina Jarvis on 34-61-9786Wzioaakwl [Mass/Vol]0.5 mg/dL0.3-1.0[facility] Calcium [Mass/volume] in Serum or PlasmaOrdered By: Christina Jarvis on 05-24-2024 Calcium [Mass/Vol]9.9 mg/dL8.6-10.3FMetroHealth Parma Medical CenterCarbon dioxide, total [Moles/volume] in Serum or PlasmaOrdered By: Christina Jarvis on 03-52-8835KZ1 [Moles/Vol]29.1 mmol/L21.0-31.0[facility] Chloride [Moles/volume] in Serum or PlasmaOrdered By: Christina Jarvis on 05-24-2024 Chloride [Moles/Vol]104 mmol/G36-737CsondzpguHolzer Health SystemCholesterol [Mass/volume] in Serum or PlasmaOrdered By: Christina Jarvis on 05-24-2024 Cholesterol [Mass/Vol]175 mg/xF903-826QtckmymjyHolzer Health SystemComment on above:Chol less than 200 mg/dl low riskChol 201-239 mg/dl borderline riskChol 240 mg/dl and greater high riskCholesterol in LDL Calc [Mass/Vol]Ordered By: Christina Jarvis on 84-67-0473Xqxwzkduaas in LDL [Mass/Vol]90 mg/dL0-100[facility] SystemComment on above:LDL ATP III CLASSIFICATIONLDL less than 100 mg/dL OptimalLDL 100-129 mg/dL Near or above rgbwznnCCE546-564 mg/dL Borderline highLDL 160-189 mg/dL HighLDL greater than 189 mg/dL Very high Cholesterol in VLDL Calc [Mass/Vol]Ordered By: Christina Jarvis on 05-24-2024 Cholesterol in VLDL [Mass/Vol]36 mg/dLHolzer Health SystemColor Auto (U)Ordered By: Christina Jarvis on 59-65-8066Xxtpk (U)Light-yellowYellow [facility] SystemCreatinine [Mass/volume] in Serum or Plasma Ordered By: Christina Jarvis on 49-59-8077Osiezqviyj [Mass/Vol]0.85 mg/dL0.60-1.20 [facility] SystemEosinophils Auto (Bld) [#/Vol]Ordered By: Christina Jarvis on 65-91-5705Ulzedejmsmk (Bld) [#/Vol]0.2 10*3/uL0.0-0.45[facility] Health SystemEosinophils/100 WBC Auto (Bld)Ordered By: Christina Jarvis on 81-11-2642Snubxtysegy/100 WBC (Bld)3.6 %.[facility] Epithelial cells.squamous [#/area] in Urine sediment by Automated countOrdered By: Christina Jarvis on 33-26-9121Lqspljbryq cells.squamous Auto (Urine sed) [#/Area]1-2 [HPF]0-2FMetroHealth Parma Medical CenterErythrocyte distribution width Auto (RBC) [Ratio]Ordered By: Christina Jarvis on 95-74-6192Cgvsybczjvh distribution width (RBC) [Ratio]14.7 %11.9-15.3FMetroHealth Parma Medical Center Erythrocytes [#/area] in Urine sediment by Automated countOrdered By: Christina Jarvis on 74-34-5533CQU Auto (Urine sed) [#/Area]3-4 [HPF]0-4FMetroHealth Parma Medical CenterGlobulin Calc (S) [Mass/Vol]Ordered By: Christina Jarvis on 05-24-2024 Globulin (S) [Mass/Vol]2.3 g/dLHolzer Health SystemGlucose [Mass/volume] in Serum or PlasmaOrdered By: Christina Jarvis on 10-71-5645Itxzmih [Mass/Vol]97 mg/fF94-511MelkccevsHolzer Health SystemComment on above:ADA recommended reference rangeRandom Glucose Reference Range is dependent on time and content of last meal. Glucose of more than 200 mg/dL in a nonstressed, ambulatory subject supports the diagnosisof Diabetes Mellitus.Glucose [Mass/volume] in Urine by Test stripOrdered By: Christina Jarvis on 05-24-2024 Glucose Test strip (U) [Mass/Vol]Normal mg/dLNormalHolzer Health SystemGlucose mean value [Mass/volume] in Blood Estimated from glycated hemoglobinOrdered By: Christina Jarvis on 34-58-0498Tyfkhbj glucose Estimated from glycated hemoglobin (Bld) [Mass/Vol]126 mg/dLHolzer Health System Hematocrit Auto (Bld) [Volume fraction]Ordered By: Christina Jarvis on 05-24-2024 Hematocrit (Bld) [Volume fraction]41.0 %34.0-46.4FMetroHealth Parma Medical CenterHemoglobin A1c percentageOrdered By: Chrisitna Jarvis on 44-87-8191LtR7i (Bld) [Mass fraction]6.0 %High4.3-5.6FMetroHealth Parma Medical CenterComment on above:Increased risk for diabetes: 5.7 - 6.4diabetes: >6.4glycemic control for adults with diabetes: <7.0Hemoglobin Test strip Ql (U)Ordered By: Christina Jarvis on 24-73-4548Dyfczsbgqs Ql (U)1+HighNegativeHolzer Health SystemHemoglobin [Mass/volume] in BloodOrdered By: Christina Jarvis on 05-24-2024 Hemoglobin (Bld) [Mass/Vol]13.6 g/dL11.8-15.4FMetroHealth Parma Medical Center Hyaline casts [#/area] in Urine sediment by Automated countOrdered By: Christina Jarvis on 97-45-5290Jijrhcf casts Auto (Urine sed) [#/Area]None [LPF]0-8 [facility] SystemKetones Test strip Ql (U)Ordered By: Christina Jarvis on 99-48-3270Pshgmto Ql (U)NegativeNegativeHolzer Health SystemLeukocyte esterase [Presence] in Urine by Test stripOrdered By: Christina Jarvis on 67-70-8864Eqptvuano esterase Test strip Ql (U)NegativeNegative [facility] SystemLeukocytes [#/area] in Urine sediment by Automated countOrdered By: Christina Jarvis on 98-78-3567KAB Auto (Urine sed) [#/Area]1-2 [HPF]0-4FMetroHealth Parma Medical CenterLeukocytes [#/volume] corrected for nucleated erythrocytes in Blood by Automated counOrdered By: Christina Jarvis on 68-88-9836IIE corrected for nucl RBC Auto (Bld) [#/Vol]4.3 10*3/uL 3.8-11.6FMetroHealth Parma Medical CenterLymphocytes Auto (Bld) [#/Vol]Ordered By: Christina Jarvis on 25-22-2112Hwrtvouyjte (Bld) [#/Vol]1.2 10*3/uL1.00-4.8 [facility] SystemLymphocytes/100 WBC Auto (Bld)Ordered By: Christina Jarvis on 36-11-0830Vkusprcmoqq/100 WBC (Bld)27.5 %.[facility] Medical CenterH Auto (RBC) [Entitic mass]Ordered By: Christina Jarvis on 66-80-2449QDC (RBC) [Entitic mass]29.4 pg24.7-34.3FMetroHealth Parma Medical CenterMCHC Auto (RBC) [Mass/Vol]Ordered By: Christina Jarvis on 72-85-1959MPVK (RBC) [Mass/Vol]33.2 g/dL32.0-35.0Hol[facility] Health SystemMCV Auto (RBC) [Entitic vol] Ordered By: Christina Jarvis on 31-36-3335IOM (RBC) [Entitic vol]88.5 zQ90-246 [facility] SystemMonocytes Auto (Bld) [#/Vol]Ordered By: Christina Jarvis on 47-18-9125Hvxsgjhms (Bld) [#/Vol]0.4 10*3/uL0.0-0.8[facility] SystemMonocytes/100 WBC Auto (Bld)Ordered By: Christina Jarvis on 05-24-2024 Monocytes/100 WBC (Bld)8.6 %.[facility] SystemMucus [Presence] in Urine by AutomatedOrdered By: Christina Jarvis on 49-41-3258Xpdou Auto Ql (U)Rare [LPF][facility] SystemNeutrophils Auto (Bld) [#/Vol]Ordered By: Christina Jarvis on 97-09-3581Aakyxqqbjvs (Bld) [#/Vol]2.5 10*3/uL1.8-7.7FMetroHealth Parma Medical CenterNeutrophils/100 WBC Auto (Bld)Ordered By: Christina Jarvis on 77-10-7274Soqncgmkntr/100 WBC (Bld)59.3 %.[facility] Nitrite Test strip Ql (U)Ordered By: Christina Jarvis on 77-94-0748Tbtiwik Ql (U) NegativeNegativeHolzer Health SystemNo Panel InformationOrdered By: Christina Jarvis on 36-06-4468Kmquvcinh GFR (CKD-EPI)> 60.0 mL/MinHolzer Health SystemPharmacy Creatinine Clearance (ChemN/AFMetroHealth Parma Medical CenterNucleated erythrocytes [Presence] in Blood by Automated count Ordered By: Christina Jarvis on 93-27-5843Bqugijxvi RBC Auto Ql (Bld)0.1 /100{WBC} 0-0.5FMetroHealth Parma Medical CenterPlatelet mean volume Auto (Bld) [Entitic vol]Ordered By: Christina Jarvis on 18-70-6014Axhvghcq mean volume (Bld) [Entitic vol]7.9 fL6.3-10.7FMetroHealth Parma Medical CenterPlatelets Auto (Bld) [#/Vol] Ordered By: Christina Jarvis on 48-63-8180Cvexnudjg (Bld) [#/Vol]325 10*3/hW334-310 [facility] SystemPotassium [Moles/volume] in Serum or Plasma Ordered By: Christina Jarvis on 75-47-7476Qlnsxpxdq [Moles/Vol]4.2 mmol/L3.5-5.1 [facility] SystemProtein Test strip (U) [Mass/Vol]Ordered By: Christina Jarvis on 28-07-5526Mddsrye (U) [Mass/Vol]NegativeNegativeHolzer Health SystemProtein [Mass/volume] in Serum or PlasmaOrdered By: Christina Jarvis on 05-13-9864Yxtwnjh [Mass/Vol]6.4 g/dL6.4-8.9Hol[facility] Health SystemRBC Auto (Bld) [#/Vol]Ordered By: Christina Jarvis on 27-91-3706UTC (Bld) [#/Vol]4.63 10*6/uL3.60-5.00[facility] Glenbeigherum or plasma albumin/globulin mass ratioOrdered By: Christina Jarvis on 05-24-2024 Albumin/Globulin [Mass ratio]1.8 {ratio}[facility] Glenbeigherum or plasma anion gap determinationOrdered By: Christina Jarvis on 02-19-0298Jdgwk gap [Moles/Vol]10.1 mmol/L6.0-15.0[facility] Glenbeigherum or plasma high density lipoprotein (HDL) cholesterol measurementOrdered By: Christina Jarvis on 02-47-6095Vqvmehvgxta in HDL [Mass/Vol]49 mg/yD16-29AwwmrjoeiHolzer Health SystemComment on above:HDL CHOL ATP-III CLASSIFICATION Cardiovascular RiskHDL > or equal to 60 mg/dL LOWHDL < 40 mg/dL HIGHSerum or plasma total cholesterol/high density lipoprotein (HDL) cholesterol mass ratOrdered By: Christina Jarvis on 37-40-8691Atyivaicrhw.total/Cholesterol in HDL [Mass ratio]3.6 {ratio}<5.0[facility] Glenbeighodium [Moles/volume] in Serum or PlasmaOrdered By: hCristina Jarvis on 85-40-7663Jlbpgz [Moles/Vol]139 mmol/P124-185 [facility] Glenbeighpecific gravity Test strip (U) [Rel density] Ordered By: Christina Jarvis on 91-72-4140Iqyieciz gravity (U) [Rel density]1.016 1.001-1.030[facility] Health SystemThyrotropin [Units/volume] in Serum or PlasmaOrdered By: Christina Jarvis on 65-94-5412YHG Qn2.10 m[IU]/L0.45-5.33 [facility] SystemTriglyceride [Mass/volume] in Serum or Plasma Ordered By: Christina Jarvis on 64-63-0774Wkcdrngnhrvy [Mass/Vol]182 mg/dLHigh0-149 [facility] SystemComment on above:TRIG ATP III CLASSIFICATIONTRIG less than 150 mg/dL NormalTRIG 150-199 mg/dL Borderline highTRIG 200-500 mg/dL High TRIG greater than 500 mg/dL Very highStandard traceable to the Center for Disease Conrtrol and Prevention (CDC) test method. Urea nitrogen [Mass/volume] in Serum or PlasmaOrdered By: Christina Jarvis on 68-94-3181Galu nitrogen [Mass/Vol]12 mg/dL7-25[facility] Urine appearanceOrdered By: Christina Jarvis on 26-61-4408Slqsytgwrb (U)ClearClear [facility] SystemUrine culture routineOrdered By: Christina Jarvis on 20-73-4610Cyiloucb identified Cx Nom (U)2 DaysHolzer Health SystemUrobilinogen Test strip (U) [Mass/Vol]Ordered By: Christina Jarvis on 67-61-8262Lnyjydjtbtdq (U) [Mass/Vol]Normal mg/dLNormalHolzer Health SystemWBC Auto (Bld) [#/Vol]Ordered By: Christina Jarvis on 45-91-9603YSL (Bld) [#/Vol]4.3 10*3/uL3.8-11.6FMetroHealth Parma Medical CenterpH Test strip (U)Ordered By: Christina Jarvis on 36-52-0735iT (U)6.5 [pH]5.0-9.0[facility] Health SystemAlanine aminotransferase [Enzymatic activity/volume] in Serum or PlasmaOrdered By: Christina Jarvis on 57-38-3561MJV [Catalytic activity/Vol]20 U/L 7-52[facility] SystemAlbumin [Mass/volume] in Serum or Plasma by Bromocresol green (BCG) dye binding methoOrdered By: Christina Jarvis on 02-04-2023 Albumin BCG dye [Mass/Vol]3.9 g/dL3.5-5.7FMetroHealth Parma Medical Center Alkaline phosphatase [Enzymatic activity/volume] in Serum or PlasmaOrdered By: Christina Jarvis on 59-52-9123OYF [Catalytic activity/Vol]84 U/V42-837VolbzslalHolzer Health SystemAspartate aminotransferase [Enzymatic activity/volume] in Serum or PlasmaOrdered By: Christina Jarvis on 12-30-2479WZL [Catalytic activity/Vol]20 U/N75-11YjpqdxdncHolzer Health SystemAutomated erythrocytes count in urine sediment (number/area)Ordered By: Christina Jarvis on 91-59-4118JZR Auto (Urine sed) [#/Area]3-4 [HPF]0-4FMetroHealth Parma Medical CenterAutomated leukocytes count in urine sediment (number/area)Ordered By: Christina Jarvis on 02-96-8503PAZ Auto (Urine sed) [#/Area]None seen [HPF]0-4FMetroHealth Parma Medical CenterBasophils Auto (Bld) [#/Vol]Ordered By: Christina Jarvis on 02-04-2023 Basophils (Bld) [#/Vol]0.0 10*3/uL0.0-0.2FMetroHealth Parma Medical Center Basophils/100 WBC Auto (Bld)Ordered By: Christina Jarvis on 56-29-3120Iecsqjcqa/100 WBC (Bld)1.1 %.[facility] SystemBilirubin Test strip Ql (U) Ordered By: Christina Jarvis on 72-41-8970Wknvhgswa Ql (U)NegativeNegativeHolzer Health SystemBilirubin.total [Mass/volume] in Serum or PlasmaOrdered By: Christina Jarvis on 65-59-7419Ugavhnvkf [Mass/Vol]0.5 mg/dL0.3-1.0[facility] SystemCalcium [Mass/volume] in Serum or PlasmaOrdered By: Christina Jarvis on 46-67-7754Sbvcklu [Mass/Vol]9.4 mg/dL8.6-10.3FMetroHealth Parma Medical CenterCarbon dioxide, total [Moles/volume] in Serum or PlasmaOrdered By: Christina Jarvis on 47-96-9864DP1 [Moles/Vol]30.3 mmol/L21.0-31.0[facility] SystemChloride [Moles/volume] in Serum or PlasmaOrdered By: Christina Jarvis on 43-73-2374Fcxjrybr [Moles/Vol]104 mmol/O58-762IlhjamlidHolzer Health SystemCholesterol [Mass/volume] in Serum or PlasmaOrdered By: Christina Jarvis on 53-82-6673Pmkfcgaqzxz [Mass/Vol]173 mg/mY660-269BholaxgysHolzer Health SystemComment on above:Chol less than 200 mg/dl low riskChol 201-239 mg/dl borderline riskChol 240 mg/dl and greater high riskCholesterol in LDL Calc [Mass/Vol]Ordered By: Christina Jarvis on 94-57-8691Luuypoplujm in LDL [Mass/Vol]89 mg/dL0-100[facility] SystemComment on above:LDL ATP III CLASSIFICATIONLDL less than 100 mg/dL OptimalLDL 100-129 mg/dL Near or above azzabuqYIF315-978 mg/dL Borderline highLDL 160-189 mg/dL HighLDL greater than 189 mg/dL Very highCholesterol in VLDL Calc [Mass/Vol]Ordered By: Christina Jarvis on 79-88-1930Lplyyzhopxk in VLDL [Mass/Vol]37 mg/dLHolzer Health SystemColor Auto (U)Ordered By: Christina Jarvis on 64-25-7196Wvmog (U)YellowYellow [facility] SystemCreatinine [Mass/volume] in Serum or Plasma Ordered By: Christina Jarvis on 19-45-2904Wlcqcleymn [Mass/Vol]0.84 mg/dL0.60-1.20 [facility] SystemEosinophils Auto (Bld) [#/Vol]Ordered By: Christina Jarvis on 55-57-3087Klqcfzktfsf (Bld) [#/Vol]0.2 10*3/uL0.0-0.45[facility] SystemEosinophils/100 WBC Auto (Bld)Ordered By: Christina Jarvis on 35-46-3685Srctmjdhzxd/100 WBC (Bld)5.4 %.[facility] Erythrocyte distribution width Auto (RBC) [Ratio]Ordered By: Christina Jarvis on 31-23-1691Rmkadaviroe distribution width (RBC) [Ratio]14.9 %11.9-15.3FMetroHealth Parma Medical CenterGlobulin Calc (S) [Mass/Vol]Ordered By: Christina Jarvis on 75-83-4631Svegypfr (S) [Mass/Vol]2.6 g/dLHolzer Health System Glucose [Mass/volume] in Serum or PlasmaOrdered By: Christina Jarvis on 02-04-2023 Glucose [Mass/Vol]102 mg/sN73-742IsxmxgojgHolzer Health SystemComment on above:ADA recommended reference rangeRandom Glucose Reference Range is dependent on time and content of last meal. Glucose of more than 200 mg/dL in a nonstressed, ambulatory subject supports the diagnosisof Diabetes Mellitus. Hematocrit Auto (Bld) [Volume fraction]Ordered By: Christina Jarvis on 02-04-2023 Hematocrit (Bld) [Volume fraction]39.8 %34.0-46.4FMetroHealth Parma Medical CenterHemoglobin [Mass/volume] in BloodOrdered By: Christina Jarvis on 02-04-2023 Hemoglobin (Bld) [Mass/Vol]13.1 g/dL11.8-15.4FMetroHealth Parma Medical Center Ketones Auto test strip (U) [Mass/Vol]Ordered By: Christina Jarvis on 02-04-2023 Ketones (U) [Mass/Vol]NegativeNegativeHolzer Health System Laboratory - UrinalysisOrdered By: Christina Jarvis on 47-73-2631Npmlpkg casts LM Ql (Urine sed)None seen [LPF]0-8[facility] SystemLeukocytes [#/volume] corrected for nucleated erythrocytes in Blood by Automated coun Ordered By: Christina Jarvis on 14-84-3548SZG corrected for nucl RBC Auto (Bld) [#/Vol]4.1 10*3/uL3.8-11.6FMetroHealth Parma Medical CenterLymphocytes Auto (Bld) [#/Vol]Ordered By: Christina Jarvis on 30-18-9064Fubgurmoctp (Bld) [#/Vol]1.0 10*3/uL1.00-4.8[facility] SystemLymphocytes/100 WBC Auto (Bld) Ordered By: Christina Jarvis on 78-60-0584Igyrdqhknfu/100 WBC (Bld)25.3 %.[facility] CenterH Auto (RBC) [Entitic mass]Ordered By: Christina Jarvis on 73-71-6217SYQ (RBC) [Entitic mass]29.3 pg24.7-34.3FMetroHealth Parma Medical CenterMCHC Auto (RBC) [Mass/Vol]Ordered By: Christina Jarvis on 59-28-5608RLET (RBC) [Mass/Vol]32.9 g/dL32.0-35.0Hol[facility] SystemMCV Auto (RBC) [Entitic vol]Ordered By: Christina Jarvis on 60-40-0900OKC (RBC) [Entitic vol]89.2 uO30-925TaligiduzHolzer Health SystemMonocytes Auto (Bld) [#/Vol]Ordered By: Christina Jarvis on 38-15-2776Eurkysoxa (Bld) [#/Vol]0.4 10*3/uL0.0-0.8[facility] SystemMonocytes/100 WBC Auto (Bld)Ordered By: Christina Jarvis on 61-14-1259Ahlpzivgn/100 WBC (Bld)9.8 %.[facility] Neutrophils Auto (Bld) [#/Vol]Ordered By: Christina Jarvis on 60-66-8161Vthzpjnuikp (Bld) [#/Vol]2.4 10*3/uL1.8-7.7FMetroHealth Parma Medical CenterNeutrophils/100 WBC Auto (Bld)Ordered By: Christina Jarvis on 43-18-3562Kvaqfrkxeei/100 WBC (Bld) 58.4 %.[facility] SystemNitrite Test strip Ql (U)Ordered By: Christina Jarvis on 63-99-7590Vahrvza Ql (U)NegativeNegativeHolzer Health SystemNo Panel InformationOrdered By: Christina Jarvis on 02-04-2023 Estimated GFR (CKD-EPI)> 60.0 mL/MinHolzer Health SystemPharmacy Creatinine Clearance (ChemN/AFMetroHealth Parma Medical CenterNucleated erythrocytes [Presence] in Blood by Automated countOrdered By: Christina Jarvis on 86-96-0681Sluztwxlq RBC Auto Ql (Bld)0.1 /100{WBC}0-0.5FMetroHealth Parma Medical CenterPlatelet mean volume Auto (Bld) [Entitic vol]Ordered By: Christina Jarvis on 95-24-1110Befsvvtd mean volume (Bld) [Entitic vol]7.8 fL6.3-10.7 [facility] SystemPlatelets Auto (Bld) [#/Vol]Ordered By: Christina Jarvis on 73-28-4881Xkascnoty (Bld) [#/Vol]308 10*3/jV262-797AsksnyddrHolzer Health SystemPotassium [Moles/volume] in Serum or PlasmaOrdered By: Christina Jarvis on 42-48-7163Yqzyoqphw [Moles/Vol]4.4 mmol/L3.5-5.1FMetroHealth Parma Medical CenterProtein Auto test strip (U) [Mass/Vol]Ordered By: Christina Jarvis on 32-18-1800Artheug (U) [Mass/Vol]NegativeNegativeHolzer Health SystemProtein [Mass/volume] in Serum or PlasmaOrdered By: Christina Jarvis on 96-55-5237Wzwxtmu [Mass/Vol]6.5 g/dL6.4-8.9[facility] SystemRBC Auto (Bld) [#/Vol]Ordered By: Christina Jarvis on 81-57-2668DBB (Bld) [#/Vol]4.46 10*6/uL3.60-5.00[facility] Glenbeigherum or plasma albumin/globulin mass ratioOrdered By: Christina Jarvis on 02-04-2023 Albumin/Globulin [Mass ratio]1.5 {ratio}[facility] Glenbeigherum or plasma anion gap determinationOrdered By: Christina Jarvis on 43-53-1168Rzgso gap [Moles/Vol]10.1 mmol/L6.0-15.0[facility] Glenbeigherum or plasma high density lipoprotein (HDL) cholesterol measurementOrdered By: Christina Jarvis on 51-17-5578Mstptsorulh in HDL [Mass/Vol]47 mg/cQ84-26LmowonhviHolzer Health SystemComment on above:HDL CHOL ATP-III CLASSIFICATION Cardiovascular RiskHDL > or equal to 60 mg/dL LOWHDL < 40 mg/dL HIGHSerum or plasma total cholesterol/high density lipoprotein (HDL) cholesterol mass ratOrdered By: Christina Jarvis on 97-07-2428Fefbzwzeqhl.total/Cholesterol in HDL [Mass ratio]3.7 {ratio}<5.0[facility] System Glenbeighodium [Moles/volume] in Serum or PlasmaOrdered By: Christina Jarvis on 23-94-6563Qfllfb [Moles/Vol]140 mmol/Z625-821 [facility] Glenbeighpecific gravity Auto test strip (U) [Rel density]Ordered By: Christina Jarvis on 99-73-4848Uinzofkn gravity (U) [Rel density] 1.0101.001-1.030[facility] Glenbeighquamous epithelial cells detection in urine sediment by light microscopyOrdered By: Christina Jarvis on 62-37-9070Pvijjqnbro cells.squamous LM Ql (Urine sed)0-1 [HPF]0-2FMetroHealth Parma Medical CenterThyrotropin [Units/volume] in Serum or PlasmaOrdered By: Christina Jarvis on 53-22-9026BOI Qn2.01 m[IU]/L0.45-5.33[facility] SystemTriglyceride [Mass/volume] in Serum or PlasmaOrdered By: Christina Jarvis on 07-65-7816Mtbnlgjmgqhw [Mass/Vol]186 mg/dL0-149[facility] Comment on above:TRIG ATP III CLASSIFICATIONTRIG less than 150 mg/dL NormalTRIG 150-199 mg/dL Borderline highTRIG 200-500 mg/dL High TRIG greater than 500 mg/dL Very highStandard traceable to the Center for Disease Conrtrol and Prevention (CDC) test method.Urea nitrogen [Mass/volume] in Serum or PlasmaOrdered By: Christina Jarvis on 70-67-4881Zoar nitrogen [Mass/Vol]15 mg/dL7-25[facility] SystemUrine bacteria detection by automated methodOrdered By: Christina Jarvis on 83-75-4305Rwriydfl Auto Ql (U)None seenNone SeenHolzer Health SystemUrine clarity by refractometry automatedOrdered By: Christina Jarvis on 14-47-4852Xxhuyuw Refractometry automated (U)ClearCleMary Rutan HospitalUrine glucose measurement by automated test strip (mass/volume) Ordered By: Christina Jarvis on 19-23-3922Qzdeffd Auto test strip (U) [Mass/Vol] Normal mg/dLNormalHolzer Health SystemUrine hemoglobin detection by automated test stripOrdered By: Christina Jarvis on 37-75-6130Mqkiuskrsc Auto test strip Ql (U)TraceNegativeHolzer Health SystemUrine leukocyte esterase detection by automated test stripOrdered By: Christina Jarvis on 02-04-2023 Leukocyte esterase Auto test strip Ql (U)NegativeNegativeHolzer Health SystemUrobilinogen Auto test strip (U) [Mass/Vol]Ordered By: Christina Jarvis on 15-48-7008Eiuenfuzesyq (U) [Mass/Vol]Normal mg/dLNormalHolzer Health SystemWBC Auto (Bld) [#/Vol]Ordered By: Christina Jarvis on 24-13-9997RLS (Bld) [#/Vol]4.1 10*3/uL3.8-11.6FMetroHealth Parma Medical Center pH Auto test strip (U)Ordered By: Christina Jarvis on 40-78-6001xE (U)7.0 [pH] 5.0-9.0Hol[facility] SystemH PYLORI TISSUEon 12-22-2022H PYL TISSUE, UREASENegativeNormalNEGATIVEThe [facility] HospitalComment on above: Performed By: #### HPYLT #### [facility] [address] [address] [address] Raffy HoytAmbulatory Clinical Summaryon 83-41-7522Oaraikqixm Clinical Summary{2q-7a-70-49-89-wh-02-04-1k-63-84-9j-64-70-ae-31}CD:[id number] Beachwood Medical CenterAmbulatory Clinical Summary {8k-d9-8r-33-u3-i4-43-15-8d-0o-82-4p-a0-c0-db-9b}CD:627905IoezqzVqujceLicking Memorial HospitalPatient Educationon 59-74-5030Gtkmskj EducationUrology Hematuria, Adult Hematuria is blood in [...] these instructions at home: Medicines ? Take cumr-cit-khetckg and prescription medicines only as told by [...] the blood stops without treatment. ? Take yvhl-hsu-puhtgau and prescription medicines only as told by your health care provider. ? Drink enough fluid to keep your urine clear or pale yellow. This information is not intended to replace advice given to you by your health care provider. Make sure you discuss any questions you have with your health care provider. Document Released: 10/10/2006 Document Revised: 03/05/2020 Document Reviewed: 11/12/2017 ElseMixamo Patient Education ? 2019 [place].[facility] Urology Office/Clinic Noteon 88-41-5786Zuzejoh Office/Clinic NoteChief Complaint 3 week f/u to cysto This patient is here to complete his hematuria work-up. She had recent cystoscopic examination. Sheis here to review labs. [facility] Staff Pt is here for [...] Moisés Nye, URO [address] [id number]- Additional Instructions: prn Patient Education Hematuria, Adult [...] evidence of tumors obstructions or mucosal lesions. [facility] HospitalComment on above:Result Comment: Electronically Signed By: Dave Krueger MD, Moisés Nye\.br\Date and Time Signed: 03/12/2109:24 EDT\.br\Electronically Co-Signed By: Elizabet Elliott MA\.br\Date and Time Co- Signed: 03/12/21 09:07 EDTLab Reportson 86-42-3428Nlv Reports [id number]#1.00CD:127NoLakeHealth Beachwood Medical CenterRAD - CT Reporton 26-24-5518VCG - CT Report [id number]#1.00CD:127NoLakeHealth Beachwood Medical CenterUroVysion Fish and Urine Cyto ([facility]4 [facility])on 39-94-2548IFIWMF & UCDiagnosis InfoInvalid Interpretation [facility] HospitalComment on above: Result Comment: A:Urine,Urine:Voided Diagnosis [...] by : on: 02/19/2021 10:26:09Performed By: #### [id number] ####[facility] [address] [facility], YN[address]Fjmdpx Summary.on 76-44-7691Wkfeff Summary. CD:832530YQ:[id number]+PGhlYWQ+UO2EIOJyM20iqTIxwP9QW6mJYI1EWFNVDMBYMI6GXY0ci AC7RZspH4BqmtLy [file] c2U6 (more content not included)...NormalPromedica Memorial HospitalConsent for Procedure/Surgeryon 05-56-1811Nrhnbdd for Procedure/Surgery [id number]#1.00CD:127[facility] HospitalConsent for Treatmenton 21-03-8629Jxkoifz for Treatment [id number]#1.00CD:[address] [place], [place] [address]Discharge Instructionson 08-10-9193Kgejjlthe Instructions [id number]#1.00CD:[address] [place], [place] [address]IntraOperative Documentson 71-74-7319BmkbuFyxzbwtyl Documents [id number]:127NormalFisher Johns Hopkins Bayview Medical CenterMain OR Intraoperative Recordon 46-18-7744Easv OR Intraoperative Record IntraOp Document Type FTURO Summary Primary Physician: Moisés Acosta Jr., MD Finalized Date/Time: 02/12/21 14:26:27 Pt. Name: KAYLEIGH BROWN /Sex: 1950 Female Med Rec #: [id number] Physician: Moisés Acosta Jr., MD Financial #: [id number] Pt. Type: O Room/Bed: / Admit/Disch: 02/12/21 13:00:12 - Institution: Case Times FTURO Entry 1 Patient Times In Room 02/12/21 14:17:00 Out Room 02/12/21 14:26:00 Procedure Times Start 02/12/21 14:23:00 Stop 02/12/21 14:24:00 Anesthesia Times Last Modified By: Bhavani Roldan RN 02/12/21 14:26:22 Case Attendance FTURO Entry 1 Entry 2 Entry 3 Case Attendee Moisés Acosta Jr., MD [place] MACHINE GU[employer] WINDER, Bhavani Walters RN Role Performed Surgeon - Primary Scrub - Primary Cisco Engineer - Primary Time In 02/12/21 14:17:00 02/12/21 [...] Krueger MD, Moisés Nye, Verified (If Participants [place] MARSHALL, Guerita Pham, Applicable) Bhavani Roldan RN [...] Signatures Signed By: Bhavani Roldan RN 02/12/21 14:26L[facility] HospitalMain OR Preoperative Recordon 98-25-9424Nlwm OR Preoperative RecordHolding Area Document Type FTURO Summary Primary Physician: Moisés Acosta Jr., MD Finalized Date/Time: 02/12/21 13:28:02 Pt. Name: STEPHANIE KAYLEIGHVero Bingham D.O.B./Sex: 1950 Female Med Rec #: [id number] Physician: Moisés Acosta Jr., MD Financial #: [id number] Pt. Type: O Room/Bed: / Admit/Disch: 02/12/21 [...] 02/12/21 13:20 Yuli MASCORRO, Bhavani Levine 02/12/21 13:28NoLakeHealth Beachwood Medical CenterOperative Reporton 73-19-7459Jjtamcxkx ReportPatient: KAYLEIGH BROWN Age: 70 years Sex: [...] CT scan and urine studies at that time..[facility] Comment on above:Result Comment: Electronically Signed By: Dave Krueger MD, Moisés Nye\.br\Date and Time Signed: 02/12/2114:27 EDTUroVysion Fish and Urine Cyto (P4 Labs)on 30-59-5067JLHX Method of ExtractionVoidedNoLakeHealth Beachwood Medical CenterComment on above:Performed By: #### [id number] ####[facility] [address] [place], [place]QPTG Number of Gwfc9Upgrglo Interpretation [facility] HospitalComment on above:Performed By: #### [id number] ####[facility]andoU[facility] West272 [facility], OO[address]OBAX SpecimenUrineNoLakeHealth Beachwood Medical CenterComment on above:Performed By: #### [id number] ####[facility] [place], [place]LXBD Type of ServiceTechnical Only [facility] HospitalComment on above:Performed By: #### [id number] ####[address] [address] [facility], FR[address]Egmxc on [id number]#1.00CD:127Normal [facility] 43-34-3151Rkkqedxsn From: Margaret Downs MA To: EU - [...] fill out and fax back- will call [facility] and [facility] Cx form was faxed- [facility] From: Marisol Swain To: EU - Clinical; Sent: 01/27/2021 11:43:45 EDT Show up: 02/10/2021 11:43:00 EDT Subject: CT Reminder/Recall being done at [facility] prior to 02/12/21 done, CT is in patients chart. will go over at time of Cysto 02/12/21.NormalPromedica Memorial Hospital UroVysion Fish and Urine Cyto (P4 Labs)on 53-19-8194UVGWEL & UCDiagnosis Info Invalid Interpretation [facility] HospitalComment on above:Result Comment: Gross Description Electronically signed by : on: 02/11/2021 12:26:14Performed By: #### [id number] ####[facility] [address] [place], [place]Hhi-Kgpgtwruitszk Formon 41-40-2234Yvn-Certification Form [id number]#1.00CD:127NoLakeHealth Beachwood Medical CenterAmbulatory Clinical Summaryon 59-89-1493Mmiingfseh Clinical Summary {6n-l0-70-1y-24-8q-49-2q-h9-64-s4-e8-0d-05-d1-00}CD:330683PbbgfhCslfiwLakeHealth Beachwood Medical CenterPatient Educationon 35-90-2295Xoretnn EducationUrology Hematuria, Adult Hematuria is blood in [...] these instructions at home: Medicines ? Take sxhs-dlf-cvpqfsc and prescription medicines only as told by [...] the blood stops without treatment. ? Take ameg-qqw-cgsfmdt and prescription medicines only as told by [...] Reviewed: 11/12/2017 Elsevier Patient Education ? 2019 [place].[facility] Pre-Authorization for Medical Treatmenton 99-74-0167Xhb-Authorization for Medical [id number]#1.00CD:127L[facility] Memorial HospitalUroVysion Fish and Urine Cyto (P4 Labs)on 21-14-5081DCTE Method of ExtractionVoidedLicking Memorial HospitalComment on above: Performed By: #### [id number] ####[facility] [address] [place], [place] [address]UVUC Number of Ugkg3Ggebpip Interpretation Code [facility] Memorial HospitalComment on above:Performed By: #### [id number] ####[facility] [address] [place], [place]UVUC SpecimenUrineLicking Memorial HospitalComment on above:Performed By: #### [id number] ####[facility] [address] [facility], HS[address]MGYU Type of ServiceTechnical OnlyLicking Memorial HospitalComment on above:Performed By: #### [id number] ####[facility] [address] [facility] OF[address]Wfqqamy Office/Clinic Noteon 53-46-7668Nvfdggg Office/Clinic NoteChief Complaint gross hematuria HPI Staff [...] Will order Local anesthesia. ABX sent to [facility] in [place]. Ordered: CT Abdomen/Pelvis w/ Contrast Urnls Dip Stick Auto w/o Microscopy POC 23735 Urology Procedure Order 2. Other urethral stricture, female (N35.82: Other urethral stricture, female) S/p Cysto/UD 09/21/2018. Ordered: Urology Procedure Order Orders: ciprofloxacin, 500 mg = 1 tab(s), Oral, Daily, Take 1 day prio to Cysto and 1 after Cysto completed, X 2 day(s), # 2 tab(s), Refills(s) 0, Pharmacy: [facility]/pharmacy #[id number], 175, cm, 01/27/21 10:28:00 EDT, Height/Length Dosing, 90, kg, 01/27/21 10:28:00 EDT, Weight Dosing I have reviewed the previous health record information and history for this pt. from Dr. Acosta. Follow-up With When Contact Information Dave Krueger MD, Moisés [address] Additional Instructions: Patient Education Hematuria, Adult [...] Social History Alcohol - (more content not included)...[facility] HospitalComment on above:Result Comment: Electronically Signed By: Dave Krueger MD, Moisés Nye\.br\Date and Time Signed: 01/27/2111:15 EDT\.br\Electronically Co-Signed By: Elizabet Elliott MA\.br\Date and Time Co-Signed: 01/27/21 11:06 EDTHIP LEFT 1 OR 2 VWS WITH PELVISon 61-10-7871JUP LEFT 1 OR 2 VWS WITH PELVISUnVeterans Health Administration Department of Radiology [address] [place] [address] Patient Name: KAYLEIGH BROWN : 1950 Sex: F Age: Race: White Pt. Location: Patient Status: Ordered Date: 01/02/2019 1:50:00 PM Completed Date: 01/02/2019 01:59 PM Requesting Provider: JAZMIN AVILA Attending Provider: Report Copy To: Signs & Symptoms: S72.92XD Unsp fracture of left femur, subs for clos fx w routn heal I10 History: [place] Comments: , , , Ordering Provider - [...] spine Electronically signed by:Mila Hernandez. 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 Transcribed by: [email or web address], User Resident: Electronically Signed by: CHUCKIE HARRIS @ 11/27/2018 10:59 [facility] CenterComment on above:Order Comment: , , , Ordering Provider - JAZMIN AVILA PA-C , HIP LEFT 1 OR 2 VWS WITH PELVISon [id number] LEFT 1 OR 2 VWS WITH PELVISUnVeterans [facility] [address] [place] [id number] Patient Name: KAYLEIGH BROWN : 1950 Sex: F Age: Race: White Pt. Location: 84 Patient Status: Ordered Date: 10/18/2018 9:40:00 AM Completed Date: 10/18/2018 09:47 AM Requesting Provider: JAZMIN AVILA Attending Provider: Report Copy To: Signs & Symptoms: M97.02XA Periprosth fracture around internal prosth l hip jt, init I10 History: Paula Comments: , , , Ordering Provider - JAZIMN AVILA PA-C , Exam: HIP LEFT 1 [...] alignment Electronically signed by:Chuckie Harris. Transcribed by: [email or web address], User Resident: Electronically Signed by: CHUCKIE HARRIS @ 10/18/2018 10:38 [facility] CenterComment on above:Order Comment: , , , Ordering Provider - JAZMIN AVILA PA-C , CBC COMPLETE BLOOD COUNTon 17-99-1220Ygnwyvmvjtz distribution width Ratio (RBC)14.9 %Lvghxf48.5-15.0The [facility] HospitalComment on above:Order Comment: Yes: Add to Previous draw if ablePerformed By: #### [id number] #### [facility] [address] [place] [address], [facility] CENTERHematocrit Volume Fraction (Bld)26.6 %Low36.0-45.0The [facility] HospitalComment on above:Order Comment: Yes: Add to Previous draw if ablePerformed By: #### [id number] #### [facility] [address] [place] [address], [facility] CENTERHemoglobin mass conc (Bld)8.5 g/dLLow12.0-15.0The [facility] HospitalComment on above:Order Comment: Yes: Add to Previous draw if ablePerformed By: #### [id number] #### [facility] [address] [place] [address], [facility] Entitic mass (RBC)29.7 tbBlmxos76.0-33.0The [facility] HospitalComment on above:Order Comment: Yes: Add to Previous draw if ablePerformed By: #### [id number] #### [facility] [address] [place] [address], [facility]HC mass conc (RBC)32.0 g/rNZqcceg50.0-35.0The [facility] HospitalComment on above:Order Comment: Yes: Add to Previous draw if ablePerformed By: #### [id number] #### [facility] [address] [place] [address], [facility] Entitic volume (RBC)93.0 hBAvpamh74.0-98.0The [facility] HospitalComment on above:Order Comment: Yes: Add to Previous draw if ablePerformed By: #### [id number] #### [facility] [address] [place] [address], USANucleated RBC/100 WBC Ratio (Bld)0 %Normal0-0The [facility] HospitalComment on above:Order Comment: Yes: Add to Previous draw if ablePerformed By: #### [id number] #### [facility] [address] [place] [address], USAPLAT DCL037 10*3/tYNodc085-867Opr [facility] HospitalComment on above:Order Comment: Yes: Add to Previous draw if able Performed By: #### [id number] #### [facility] [address] [place] [address], USARBC #/vol (Bld)2.86 10*6/uLLow3.80-5.00The [facility] HospitalComment on above:Order Comment: Yes: Add to Previous draw if ablePerformed By: #### [id number] #### [facility] [address] [place] [address], USAWBC #/vol (Bld)5.72 10*3/uLNormal4.00-10.60The [facility] HospitalComment on above:Order Comment: Yes: Add to Previous draw if ablePerformed By: #### [id number] #### [facility] [address] [place] [address], USABASIC METABOLIC PANELon 81-29-6169Hntqoik mass conc8.9 mg/dLNormal8.6-10.3The [facility] HospitalComment on above:Order Comment: No: Do not add to previous drawPerformed By: #### [id number] #### [facility] [address] [place] [address], USAChloride molar mgkj163 mmol/HJqcjmb65-865Eps [facility] HospitalComment on above:Order Comment: No: Do not add to previous drawPerformed By: #### [id number] #### [facility] [address] [place] [address], USACO2 molar conc26 mmol/WNyqpyo80-16Nzv [facility] HospitalComment on above:Order Comment: No: Do not add to previous draw Performed By: #### [id number] #### [facility] [address] [place] [address], USACreatinine mass conc0.62 mg/dLNormal0.60-1.20The [facility] HospitalComment on above:Order Comment: No: Do not add to previous drawPerformed By: #### [id number] #### [facility] [address] [place] [address], USAGFR/1.73 sq M predicted among blacks MDRD vol rate/area (S/P/Bld)mL/min/{1.73_m2}Normal>60The [facility] HospitalComment on above:Order Comment: No: Do not add to previous drawPerformed By: #### 53905 #### [facility] [address] [place] [address], USAGFR/1.73 sq M predicted among non-blacks MDRD vol rate/area (S/P/Bld)mL/min/{1.73_m2}Normal>60The [facility] Comment on above:Order Comment: No: Do not add to previous drawPerformed By: #### [id number] #### [facility] [address] [place] [address], USAGlucose mass ugps457 mg/qTZuir36-091Nss [facility] HospitalComment on above:Order Comment: No: Do not add to previous drawPerformed By: #### [id number] #### [facility] [address] [place] [address], USAPotassium molar conc4.4 mmol/LNormal3.5-5.1The [facility] HospitalComment on above:Order Comment: No: Do not add to previous drawPerformed By: #### [id number] #### [facility] [address] [place] [address], USASodium molar hnhn649 mmol/GOglafn239-720Aes [facility] HospitalComment on above:Order Comment: No: Do not add to previous drawPerformed By: #### [id number] #### [facility] [address] [place] [address], USAUrea nitrogen mass conc12 mg/dLNormal7-25The [facility] HospitalComment on above:Order Comment: No: Do not add to previous drawPerformed By: #### [id number] #### [facility] [address] [place] [address], [facility] CENTERCBC COMPLETE BLOOD COUNTon 70-65-8543Ylugzkplxbf distribution width Ratio (RBC)14.8 %Gngynd24.5-15.0The [facility] HospitalComment on above:Order Comment: No: Do not add to previous draw Performed By: #### [id number] #### [facility] [address] [place] [address], [facility] CENTERHematocrit Volume Fraction (Bld)27.9 %Low36.0-45.0The [facility] HospitalComment on above:Order Comment: No: Do not add to previous drawPerformed By: #### [id number] #### [facility] [address] [place] [address], [facility] CENTERHemoglobin mass conc (Bld)9.1 g/dLLow12.0-15.0The [facility] HospitalComment on above:Order Comment: No: Do not add to previous drawPerformed By: #### [id number] #### [facility] [address] [place] [address], [facility] Entitic mass (RBC)29.9 yrGzrmwv50.0-33.0The [facility] HospitalComment on above:Order Comment: No: Do not add to previous drawPerformed By: #### [id number] #### [facility] [address] [place] [address], [facility] CENTERMCHC mass conc (RBC)32.6 g/tTFlqkvx54.0-35.0The [facility] HospitalComment on above:Order Comment: No: Do not add to previous drawPerformed By: #### [id number] #### [facility] [address] [place] [id number], [facility] CENTERMCV Entitic volume (RBC)91.8 uKAvdaby22.0-98.0The [facility] HospitalComment on above:Order Comment: No: Do not add to previous drawPerformed By: #### [id number] #### [facility] [address] [place] [address], USANucleated RBC/100 WBC Ratio (Bld)0 %Normal0-0The [facility] HospitalComment on above:Order Comment: No: Do not add to previous drawPerformed By: #### [id number] #### [facility] [address] [place] [address], USAPLAT TCC594 10*3/iVInmw645-765Ppl [facility] HospitalComment on above:Order Comment: No: Do not add to previous draw Performed By: #### [id number] #### [facility] [address] [place] [address], [facility] CENTERRBC #/vol (Bld)3.04 10*6/uLLow3.80-5.00The [facility] HospitalComment on above:Order Comment: No: Do not add to previous drawPerformed By: #### [id number] #### [facility] [address] [place] [address], USAWBC #/vol (Bld)6.22 10*3/uLNormal4.00-10.60The [facility] HospitalComment on above:Order Comment: No: Do not add to previous drawPerformed By: #### [id number] #### [facility] [address] [place] [address], USABASIC METABOLIC PANELon 89-16-9914Lcknqep mass conc8.4 mg/dLLow8.6-10.3The [facility] HospitalComment on above:Order Comment: No: Do not add to previous drawPerformed By: #### [id number] #### [facility] [address] [place] [address], USAChloride molar mocx590 mmol/PUkoxgj08-853Dxk [facility] HospitalComment on above:Order Comment: No: Do not add to previous drawPerformed By: #### [id number] #### [facility] [address] [place] [address], USACO2 molar conc27 mmol/ANrirwj61-98Lpy [facility] HospitalComment on above:Order Comment: No: Do not add to previous draw Performed By: #### [id number] #### [facility] [address] [place] [address], USACreatinine mass conc0.60 mg/dLNormal0.60-1.20The [facility] HospitalComment on above:Order Comment: No: Do not add to previous drawPerformed By: #### [id number] #### [facility] [address] [place] [address], USAGFR/1.73 sq M predicted among blacks MDRD vol rate/area (S/P/Bld)mL/min/{1.73_m2}Normal>60The [facility] HospitalComment on above:Order Comment: No: Do not add to previous drawPerformed By: #### [id number] #### [facility] [address] [place] [address], USAGFR/1.73 sq M predicted among non-blacks MDRD vol rate/area (S/P/Bld)mL/min/{1.73_m2}Normal>60The [facility] Comment on above:Order Comment: No: Do not add to previous drawPerformed By: #### [id number] #### [facility] [address] [place] [address], USAGlucose mass ihqm172 mg/vJObif00-628Ere [facility] HospitalComment on above:Order Comment: No: Do not add to previous drawPerformed By: #### [id number] #### [facility] [address] [address], USAPotassium molar conc4.2 mmol/LNormal3.5-5.1The [facility] HospitalComment on above:Order Comment: No: Do not add to previous drawPerformed By: #### [id number] #### [facility] [address] [address], USASodium molar jefd965 mmol/WSvn780-026Usa [facility] HospitalComment on above:Order Comment: No: Do not add to previous drawPerformed By: #### [id number] #### [facility] [address] [place] [address], USAUrea nitrogen mass conc11 mg/dLNormal7-25The [facility] HospitalComment on above:Order Comment: No: Do not add to previous drawPerformed By: #### [id number] #### [facility] [address] [place] [address], [facility] CENTERCB W/DIFFon 52-20-4796YOG BASOPHILS0.0 10*3/uLNormal 0.0-0.2The [facility] HospitalComment on above:Performed By: #### [id number] #### [facility] [address] [place] [address], [facility] CENTERABS IMM GRANS0.3 10*3/uLHigh0.0-0.2The [facility] HospitalComment on above:Performed By: #### [id number] #### [facility] [address] [place] [address], USAABS NEUTROPHILS4.1 10*3/uLNormal1.6-7.6The [facility] HospitalComment on above:Performed By: #### [id number] #### [facility] [address] [place] [address], USABasophils #/vol (Bld)0.5 %Normal0.0-1.0The [facility] HospitalComment on above:Performed By: #### [id number] #### [facility] [address] [place] [address], [facility] CENTEREosinophils #/vol (Bld)0.2 10*3/uLNormal0.0-0.5The [facility] HospitalComment on above:Performed By: #### [id number] #### [facility] [address] [place] [address], [facility] CENTEREosinophils/100 WBC (Bld)3.1 %Normal0.0-6.0The [facility] HospitalComment on above:Performed By: #### [id number] #### [facility] [address] [place] [address], [facility] CENTERErythrocyte distribution width Ratio (RBC)14.8 %Normal 11.5-15.0The [facility] HospitalComment on above:Performed By: #### [id number] #### [facility] [address] [place] [address], USAHematocrit Volume Fraction (Bld)24.3 %Low36.0-45.0The [facility] HospitalComment on above:Performed By: #### [id number] #### [facility] [address] [place] [address], [facility] CENTERHemoglobin mass conc (Bld)7.9 g/dLLow12.0-15.0The [facility] HospitalComment on above:Performed By: #### [id number] #### [facility] [address] [place] [address], [facility] CENTERIMMATURE GRANS5.0 %High0.0-1.0The [facility] HospitalComment on above:Performed By: #### [id number] #### [facility] [address] [place] [id number], [facility] CENTERLymphocytes #/vol (Bld)0.8 10*3/uLLow1.2-4.0The [facility] HospitalComment on above:Performed By: #### [id number] #### [facility] [address] [place] [address], [facility] CENTERLymphocytes/100 WBC (Bld)12.9 %Low20.0-45.0The [facility] HospitalComment on above:Performed By: #### [id number] #### [facility] [address] [place] [address], [facility] Entitic mass (RBC)29.5 ywLhwkvv38.0-33.0The [facility] HospitalComment on above:Performed By: #### [id number] #### [facility] [address] [place] [address], [facility]LEHC mass conc (RBC)32.5 g/nPLnxkdl87.0-35.0The [facility] HospitalComment on above:Performed By: #### [id number] #### [facility] [address] [place] [address], [facility] Entitic volume (RBC)90.7 lPBgedmz87.0-98.0The [facility] HospitalComment on above:Performed By: #### [id number] #### [facility] [address] [place] [address], [facility] CENTERMonocytes #/vol (Bld)0.6 10*3/uLNormal0.1-1.0The [facility] HospitalComment on above:Performed By: #### [id number] #### [facility] [address] [place] [address], EYJYBFNQ17.6 %Normal5.0-12.0The [facility] HospitalComment on above:Performed By: #### 43592 #### [facility] [address] [place] [address], USANeutrophils/100 WBC (Bld)67.9 %Ikjbbe53.0-72.0The [facility] HospitalComment on above:Performed By: #### [id number] #### [facility] [address] [place] [address], USANucleated RBC/100 WBC Ratio (Bld)0 %Normal0-0The [facility] HospitalComment on above:Performed By: #### [id number] #### [facility] [address] [place] [address], [place]APLAT ETX139 10*3/nBIjdh166-727Cwc [facility] HospitalComment on above:Performed By: #### [id number] #### [facility] [address] [place] [address], [facility] CENTERRBC #/vol (Bld)2.68 10*6/uLLow3.80-5.00The [facility] HospitalComment on above:Performed By: #### [id number] #### [facility] [address] [place] [address], USAWBC #/vol (Bld)6.04 10*3/uLNormal4.00-10.60The [facility] HospitalComment on above:Performed By: #### [id number] #### [facility] [address] [place] [address], USAHEMOGLOBINon 38-58-8474Xxurmhqlys mass conc (Bld)8.7 g/dL Low12.0-15.0The [facility] HospitalComment on above:Order Comment: No: Do not add to previous drawPerformed By: #### [id number] #### [facility] [address] [place] [address], USABASIC METABOLIC PANELon 85-25-3262Xnjlqil mass conc8.7 mg/dLNormal8.6-10.3The [facility] HospitalComment on above:Order Comment: No: Do not add to previous drawPerformed By: #### [id number] #### [facility] [address] [place] [address], USAChloride molar wezr317 mmol/LRafivs96-858Qzj [facility] HospitalComment on above:Order Comment: No: Do not add to previous drawPerformed By: #### [id number] #### [facility] [address] [place] [address], USACO2 molar conc28 mmol/CQjwhca38-27Mig [facility] HospitalComment on above:Order Comment: No: Do not add to previous draw Performed By: #### 26042 #### [facility] [address] [place] [address], USACreatinine mass conc0.71 mg/dLNormal0.60-1.20The [facility] HospitalComment on above:Order Comment: No: Do not add to previous drawPerformed By: #### 60822 #### [facility] [address] [place] [address], USAGFR/1.73 sq M predicted among blacks MDRD vol rate/area (S/P/Bld)mL/min/{1.73_m2}Normal>60The [facility] HospitalComment on above:Order Comment: No: Do not add to previous drawPerformed By: #### 78538 #### [facility] [address] [place] [address], USAGFR/1.73 sq M predicted among non-blacks MDRD vol rate/area (S/P/Bld)mL/min/{1.73_m2}Normal>60The [facility] Comment on above:Order Comment: No: Do not add to previous drawPerformed By: #### [id number] #### [facility] [address] [place] [address], USAGlucose mass zodo124 mg/cBRvzd75-489Xdp [facility] HospitalComment on above:Order Comment: No: Do not add to previous drawPerformed By: #### [id number] #### [facility] [address] [place] [address], USAPotassium molar conc4.2 mmol/LNormal3.5-5.1The [facility] HospitalComment on above:Order Comment: No: Do not add to previous drawPerformed By: #### 15094 #### [facility] [address] [place] [address], USASodium molar zhnu277 mmol/AEed105-044Xin [facility] HospitalComment on above:Order Comment: No: Do not add to previous drawPerformed By: #### [id number] #### [facility] [address] [place] [address], USAUrea nitrogen mass conc13 mg/dLNormal7-25The [facility] HospitalComment on above:Order Comment: No: Do not add to previous drawPerformed By: #### 31500 #### [facility] [address] [place] [address], USACBC COMPLETE BLOOD COUNTon 82-78-7075Gpqkyrprchm distribution width Ratio (RBC)14.2 %Zkyiqy38.5-15.0The [facility] HospitalComment on above:Order Comment: No: Do not add to previous draw Performed By: #### [id number] #### [facility] [address] [place] [address], USAHematocrit Volume Fraction (Bld)19.8 %Low36.0-45.0The [facility] HospitalComment on above:Order Comment: No: Do not add to previous drawPerformed By: #### 14714 #### [facility] [address] [place] [address], USAHemoglobin mass conc (Bld)6.5 g/dLLow12.0-15.0The [facility] HospitalComment on above:Order Comment: No: Do not add to previous drawPerformed By: #### [id number] #### [facility] [address] [place] [address], [facility] Entitic mass (RBC)30.0 fyJyondd17.0-33.0The [facility] HospitalComment on above:Order Comment: No: Do not add to previous drawPerformed By: #### [id number] #### [facility] [address] [place] [id number], [facility] SEM[facility]LEHC mass conc (RBC)32.8 g/iRYyqnqa69.0-35.0The [facility] HospitalComment on above:Order Comment: No: Do not add to previous drawPerformed By: #### [id number] #### [facility] [address] [place] [address], [facility] Entitic volume (RBC)91.2 iVTuczwo36.0-98.0The [facility] HospitalComment on above:Order Comment: No: Do not add to previous drawPerformed By: #### [id number] #### [facility] [address] [place] [address], [facility] CENTERNucleated RBC/100 WBC Ratio (Bld)0 %Normal0-0The [facility] HospitalComment on above:Order Comment: No: Do not add to previous drawPerformed By: #### [id number] #### [facility] [address] [place] [address], USAPLAT FLD910 10*3/fTGisd865-296Kxi [facility] HospitalComment on above:Order Comment: No: Do not add to previous draw Performed By: #### [id number] #### [facility] [address] [place] [address], [facility] CENTERRBC #/vol (Bld)2.17 10*6/uLLow3.80-5.00The [facility] HospitalComment on above:Order Comment: No: Do not add to previous drawPerformed By: #### [id number] #### [facility] [address] [place] [address], USAWBC #/vol (Bld)5.87 10*3/uLNormal4.00-10.60The [facility] HospitalComment on above:Order Comment: No: Do not add to previous drawPerformed By: #### [id number] #### [facility] [address] [place] [address], USAHEMOGLOBINon 96-75-3148Hfgcpdlbaq mass conc (Bld)8.5 g/dL Low12.0-15.0The [facility] HospitalComment on above:Order Comment: No: Do not add to previous drawPerformed By: #### [id number] #### [facility] [address] [place] [address], USARBC'S 2 UNITSon 72-88-3393JPPUFRUURM INTERP 1CSt. Charles HospitalComment on above:Order Comment: No: Do not add to previous drawPerformed By: #### [id number] #### [facility] [address] [place] [address], USACROSSMATCH INTERP 2CSt. Charles HospitalComment on above:Order Comment: No: Do not add to previous draw Performed By: #### [id number] #### [facility] [address] [place] [address], USAProtein mass puie396 g/dLNormSelect Medical Cleveland Clinic Rehabilitation Hospital, Edwin ShawComment on above:Order Comment: No: Do not add to previous draw Performed By: #### [id number] #### [facility] [address] [place] [address], USAProtein mass concPTNoNorwalk Memorial HospitalComment on above:Order Comment: No: Do not add to previous drawResult Comment: Result changed by IF on 10/05/2018 10:04. The previous value was XM. Result changed by IF on 10/06/2018 00:30. The previous value was IS.Performed By: #### [id number] #### [facility] [address] [place] [address], USAResult Comment: Result changed by IF on 10/05/2018 13:18. The previous value was XM. Result changed by IF on 10/06/2018 00:30. The previous value was IS.Protein mass gjqs414 g/dLChildren's Hospital for RehabilitationComment on above:Order Comment: No: Do not add to previous drawPerformed By: #### [id number] #### [facility] [address] [place] [address], USAUNIT ABO 1[facility] Comment on above:Order Comment: No: Do not add to previous drawPerformed By: #### [id number] #### [facility] [address] [place] [address], USAUNIT ABO 2[facility] Comment on above:Order Comment: No: Do not add to previous drawPerformed By: #### [id number] #### [facility] [address] [place] [address], USAUNIT ID [id number] Memorial HospitalComment on above:Order Comment: No: Do not add to previous draw Performed By: #### [id number] #### [facility] [address] [place] [address], USAUNIT ID [id number]-TKvrcloGlwProMedica Fostoria Community HospitalComment on above:Order Comment: No: Do not add to previous draw Performed By: #### [id number] #### [facility] [address] [place] [address], USAUNIT RH 1PosiSuburban Community Hospital & Brentwood HospitalComment on above:Order Comment: No: Do not add to previous drawPerformed By: #### [id number] #### [facility] [address] [place] [address], USAUNIT RH 2PositiveNoNorwalk Memorial HospitalComment on above:Order Comment: No: Do not add to previous drawPerformed By: #### [id number] #### [facility] [address] [place] [address], USATYPE AND SCREENon [id number] INTERPRETATIONONoNorwalk Memorial HospitalComment on above:Performed By: #### [id number] #### [facility] [address] [place] [address], USARH INTERPRETATIONPositiveChildren's Hospital for RehabilitationComment on above:Performed By: #### [id number] #### [facility] [address] [place] [address], USABASIC METABOLIC PANELon 93-93-3953Learwxd mass conc8.5 mg/dLLow8.6-10.3The [facility] HospitalComment on above:Order Comment: No: Do not add to previous drawPerformed By: #### [id number] #### [facility] [address] [place] [address], USAChloride molar fmky203 mmol/MKwdadw65-736Nxs [facility] HospitalComment on above:Order Comment: No: Do not add to previous drawPerformed By: #### [id number] #### [facility] [address] [place] [address], USACO2 molar conc26 mmol/FLcagkb86-44Dvd [facility] HospitalComment on above:Order Comment: No: Do not add to previous draw Performed By: #### [id number] #### [facility] [address] [place] [address], USACreatinine mass conc0.63 mg/dLNormal0.60-1.20The [facility] HospitalComment on above:Order Comment: No: Do not add to previous drawPerformed By: #### [id number] #### [facility] [address] [place] [address], USAGFR/1.73 sq M predicted among blacks MDRD vol rate/area (S/P/Bld)mL/min/{1.73_m2}Normal>60The [facility] HospitalComment on above:Order Comment: No: Do not add to previous drawPerformed By: #### [id number] #### [facility] [address] [place] [address], USAGFR/1.73 sq M predicted among non-blacks MDRD vol rate/area (S/P/Bld)mL/min/{1.73_m2}Normal>60The [facility] Comment on above:Order Comment: No: Do not add to previous drawPerformed By: #### [id number] #### [facility] [address] [place] [address], USAGlucose mass zhfm734 mg/rMHflc84-281Edc [facility] HospitalComment on above:Order Comment: No: Do not add to previous drawPerformed By: #### [id number] #### [facility] [address] [place] [address], USAPotassium molar conc4.6 mmol/LNormal3.5-5.1The [facility] HospitalComment on above:Order Comment: No: Do not add to previous drawPerformed By: #### [id number] #### [facility] [address] [place] [address], USASodium molar cipg851 mmol/KEgm340-805Zmi [facility] HospitalComment on above:Order Comment: No: Do not add to previous drawPerformed By: #### [id number] #### [facility] [address] [place] [address], USAUrea nitrogen mass conc17 mg/dLNormal7-25The [facility] HospitalComment on above:Order Comment: No: Do not add to previous drawPerformed By: #### 36086 #### [facility] [address] [place] [address], USACalcium mass conc8.5 mg/dLLow8.6-10.3The [facility] HospitalComment on above:Order Comment: No: Do not add to previous drawPerformed By: #### [id number] #### [facility] [address] [place] [address], USAChloride molar eqyz231 mmol/RPsczll96-352Sjt [facility] HospitalComment on above:Order Comment: No: Do not add to previous drawPerformed By: #### 12508 #### [facility] [address] [place] [address], USACO2 molar conc21 mmol/ATyfzan68-80Ztr [facility] HospitalComment on above:Order Comment: No: Do not add to previous draw Performed By: #### 72686 #### [facility] [address] [place] [address], USACreatinine mass conc0.55 mg/dLLow0.60-1.20The [facility] HospitalComment on above:Order Comment: No: Do not add to previous drawPerformed By: #### [id number] #### [facility] [address] [place] [address], USAGFR/1.73 sq M predicted among blacks MDRD vol rate/area (S/P/Bld)mL/min/{1.73_m2}Normal>60The [facility] HospitalComment on above:Order Comment: No: Do not add to previous drawPerformed By: #### [id number] #### [facility] [address] [place] [address], USAGFR/1.73 sq M predicted among non-blacks MDRD vol rate/area (S/P/Bld)mL/min/{1.73_m2}Normal>60The [facility] Comment on above:Order Comment: No: Do not add to previous drawPerformed By: #### 57043 #### [facility] [address] [place] [address], USAGlucose mass bxzl774 mg/iFRdqi29-369Eex [facility] HospitalComment on above:Order Comment: No: Do not add to previous drawPerformed By: #### [id number] #### [facility] [address] [place] [address], USAPotassium molar conc4.8 mmol/LNormal3.5-5.1The [facility] HospitalComment on above:Order Comment: No: Do not add to previous drawPerformed By: #### [id number] #### [facility] [address] [place] [address], USASodium molar sceg940 mmol/OKpz847-019Wye [facility] HospitalComment on above:Order Comment: No: Do not add to previous drawPerformed By: #### [id number] #### [facility] [address] [place] [address], USAUrea nitrogen mass conc15 mg/dLNormal7-25The [facility] HospitalComment on above:Order Comment: No: Do not add to previous drawPerformed By: #### [id number] #### [facility] [address] [place] [address], USACBC COMPLETE BLOOD COUNTon 74-94-5831Doyvdphhkna distribution width Ratio (RBC)13.9 %Akyjwk74.5-15.0The [facility] HospitalComment on above:Order Comment: No: Do not add to previous draw Performed By: #### 59169 #### [facility] [address] [place] [address], USAHematocrit Volume Fraction (Bld)25.6 %Low36.0-45.0The [facility] HospitalComment on above:Order Comment: No: Do not add to previous drawPerformed By: #### [id number] #### [facility] [address] [place] [address], USAHemoglobin mass conc (Bld)8.1 g/dLLow12.0-15.0The [facility] HospitalComment on above:Order Comment: No: Do not add to previous drawPerformed By: #### [id number] #### [facility] [address] [place] [address], [facility] Entitic mass (RBC)29.5 lzTnoqdt39.0-33.0The [facility] HospitalComment on above:Order Comment: No: Do not add to previous drawPerformed By: #### [id number] #### [facility] [address] [place] [id number], [facility]HC mass conc (RBC)31.6 g/dLLow32.0-35.0The [facility] HospitalComment on above:Order Comment: No: Do not add to previous drawPerformed By: #### 37834 #### [facility] [address] [place] [address], [facility] Entitic volume (RBC)93.1 bRCvurni57.0-98.0The [facility] HospitalComment on above:Order Comment: No: Do not add to previous drawPerformed By: #### [id number] #### [facility] [address] [address], [facility]ICAL CENTERNucleated RBC/100 WBC Ratio (Bld)0 %Normal0-0The [facility] HospitalComment on above:Order Comment: No: Do not add to previous drawPerformed By: #### 95432 #### [facility] [address] [address], USAPLAT CZI074 10*3/yMJdgqnl278-552Mke [facility] HospitalComment on above:Order Comment: No: Do not add to previous draw Performed By: #### 92701 #### [facility] [address] [place] [address], [facility] CENTERRBC #/vol (Bld)2.75 10*6/uLLow3.80-5.00The [facility] HospitalComment on above:Order Comment: No: Do not add to previous drawPerformed By: #### 98667 #### [facility] [address] [place] [address], [facility] [place] #/vol (Bld)5.86 10*3/uLNormal4.00-10.60The [facility] HospitalComment on above:Order Comment: No: Do not add to previous drawPerformed By: #### [id number] #### [facility] [address] [place] [address], [facility] CENTEROperative Reporton 20-10-0922Vzhhdbgik ReportMR#: [id number] I [facility] Pt. Name: Kayleigh Brown Room #: [id number] Discharge Date: Birthdate: 1950 OPERATIVE REPORT DATE OF SURGERY: 10/02/2018 SURGEON: Pete Garcia M.D. SUPERVISOR SPECIAL SERVICES: Dr. Thornton., Dr. Harpal Azar, Dr. George Patel, Dr. Ruperto Hernandez. PREOPERATIVE DIAGNOSIS: Left hip [place] B2 periprosthetic femur fracture. POSTOPERATIVE DIAGNOSIS: Left hip [place] B2 periprosthetic femur fracture. PROCEDURE PERFORMED: 1. [...] extremity. She was subsequently diagnosed with a [place] B2 periprosthetic femur fracture at the site [...] the lateral decubitus position using the hip salvage inspector system. All bony prominences were well padded. [...] Patel MD Date Trans: 10/03/2018 02:44 A/july DN_JN:[id number] cc: Christina Jarvis D.O. [address] [place] [id number]'s Hospital for RehabilitationVITAMIN D 25-HYDROXYon 28-93-0269AHZROOV D 25-OH27.7 ng/mLLow30.0-80.0The [facility] HospitalComment on above:Result Comment: >80.0 Toxicity possible Performed By: #### [id number] #### [facility] [address]*ANAEROBIC CULTUREon 10-02-2018*ANAEROBIC CULTUREClinical Report: (D) Specimen/Source: SWAB/INTRAOP SPEC Collected: 10/02/2018 17:38 Status: Final Last Updated: 10/07/2018 08:20 (1) 1.) LEFT HIP CULT RES (Final) No Anaerobes Isolated 5 DaysNoNorwalk Memorial HospitalComment on above:Order Comment: No: Do not add to previous drawPerformed By: #### [id number] #### [facility] [address] [place] [address], [facility]*WOUND CULTUREon 10-02-2018*WOUND CULTUREClinical Report: (D) Specimen/Source: WOUND/INTRAOP SPEC Collected: 10/02/2018 17:38 Status: Final Last Updated: 10/07/2018 07:52 (1) 1.) LEFT HIP GRAM (Final) No Polys Seen No Bacteria Seen CULT RES (Final) No Growth Day 5NoNorwalk Memorial HospitalComment on above: Order Comment: No: Do not add to previous drawPerformed By: #### 60054 #### [facility] [address] [place] [address], USABASIC METABOLIC PANELon 64-31-3408Quegtri mass conc8.5 mg/dLLow8.6-10.3The [facility] HospitalComment on above:Order Comment: No: Do not add to previous drawPerformed By: #### 88983, 04006 #### [facility] [address] [place] [address], USAChloride molar wavz465 mmol/SQeyhbe08-528Qfo [facility] HospitalComment on above:Order Comment: No: Do not add to previous drawPerformed By: #### 41434, 64685 #### [facility] [address] [place] [address], USACO2 molar conc18 mmol/POej44-74Gsb [facility] HospitalComment on above:Order Comment: No: Do not add to previous draw Performed By: #### 47122, 58095 #### [facility] [address] [place] [address], USACreatinine mass conc0.66 mg/dLNormal0.60-1.20The [facility] HospitalComment on above:Order Comment: No: Do not add to previous drawPerformed By: #### 06597, 42273 #### [facility] [address] [place] [address], USAGFR/1.73 sq M predicted among blacks MDRD vol rate/area (S/P/Bld)mL/min/{1.73_m2}Normal>60The [facility] HospitalComment on above:Order Comment: No: Do not add to previous drawPerformed By: #### 61934, 11363 #### [facility] [address] [place] [address], USAGFR/1.73 sq M predicted among non-blacks MDRD vol rate/area (S/P/Bld)mL/min/{1.73_m2}Normal>60The [facility] Comment on above:Order Comment: No: Do not add to previous drawPerformed By: #### 28599, 06467 #### [facility] [address] [place] [address], USAGlucose mass bxzq907 mg/gZVevk96-163Ugr [facility] HospitalComment on above:Order Comment: No: Do not add to previous drawPerformed By: #### 97811, 77544 #### [facility] [address] [place] [address], USAPotassium molar conc4.8 mmol/LNormal3.5-5.1The [facility] HospitalComment on above:Order Comment: No: Do not add to previous drawPerformed By: #### 90614, 05773 #### [facility] [address] [place] [address], USASodium molar sjzy668 mmol/RDpd899-331Gjq [facility] HospitalComment on above:Order Comment: No: Do not add to previous drawPerformed By: #### 86440, 39272 #### [facility] [address] [place] [address], USAUrea nitrogen mass conc13 mg/dLNormal7-25The [facility] HospitalComment on above:Order Comment: No: Do not add to previous drawPerformed By: #### 43984, 86149 #### [facility] [address] [place] [address], [facility] COMPLETE BLOOD COUNTon 37-91-9766Iibvdztgjyg distribution width Ratio (RBC)14.1 %Llhrsi61.5-15.0The [facility] HospitalComment on above:Order Comment: No: Do not add to previous draw Performed By: #### 25441 #### [facility] [address] [address], [facility] MEDICAL CENTERHematocrit Volume Fraction (Bld)25.9 %Low36.0-45.0The [facility] HospitalComment on above:Order Comment: No: Do not add to previous drawPerformed By: #### 93589 #### [facility] [address] [place] [address], [facility] MEDICAL CENTERHemoglobin mass conc (Bld)8.6 g/dLLow12.0-15.0The [facility] HospitalComment on above:Order Comment: No: Do not add to previous drawPerformed By: #### 17694 #### [facility] [address] [place] [address], [facility] Entitic mass (RBC)30.2 foVhbiic71.0-33.0The [facility] HospitalComment on above:Order Comment: No: Do not add to previous drawPerformed By: #### 50310 #### [facility] [address] [address], [facility]HC mass conc (RBC)33.2 g/iHCsffso99.0-35.0The [facility] HospitalComment on above:Order Comment: No: Do not add to previous drawPerformed By: #### 90028 #### [facility] [address] [place] [address], [facility] Entitic volume (RBC)90.9 iXLgqsuq74.0-98.0The [facility] HospitalComment on above:Order Comment: No: Do not add to previous drawPerformed By: #### 24310 #### [facility] [address] [place] [address], USANucleated RBC/100 WBC Ratio (Bld)0 %Normal0-0The [facility] HospitalComment on above:Order Comment: No: Do not add to previous drawPerformed By: #### 01221 #### [facility] [address] [place] [address], USAPLAT WSP474 10*3/nCUkepzz077-337Fns [facility] HospitalComment on above:Order Comment: No: Do not add to previous draw Performed By: #### 14715 #### [facility] [address] [place] [address], [facility] CENTERRBC #/vol (Bld)2.85 10*6/uLLow3.80-5.00The [facility] HospitalComment on above:Order Comment: No: Do not add to previous drawPerformed By: #### 03297 #### [facility] [address] [place] [address], [facility] CENTERWBC #/vol (Bld)8.00 10*3/uLNormal4.00-10.60The [facility] HospitalComment on above:Order Comment: No: Do not add to previous drawPerformed By: #### 57909 #### [facility] [address] [place] [address], USAErythrocyte distribution width Ratio (RBC)14.2 %Normal 11.5-15.0The [facility] HospitalComment on above:Order Comment: This order is a replacement of the rejected order with accession number [id number].Performed By: #### 91419 #### [facility] [address] [place] [address], USAHematocrit Volume Fraction (Bld)27.0 %Low36.0-45.0The [facility] HospitalComment on above:Order Comment: This order is a replacement of the rejected order with accession number [id number].Performed By: #### 36962 #### [facility] [address] [address], [facility]ICAL CENTERHemoglobin mass conc (Bld)8.7 g/dLLow12.0-15.0The [facility] HospitalComment on above:Order Comment: This order is a replacement of the rejected order with accession number [id number].Performed By: #### 29692 #### [facility] [address] [facility] [place] [id number], [facility] [place] Entitic mass (RBC)29.6 shXiaxnd71.0-33.0The [facility] HospitalComment on above:Order Comment: This order is a replacement of the rejected order with accession number [id number].Performed By: #### 01863 #### [facility] [address] [place] [address], [facility] mass conc (RBC)32.2 g/eYEyzzyl31.0-35.0The [facility] HospitalComment on above:Order Comment: This order is a replacement of the rejected order with accession number [id number].Performed By: #### 88669 #### [facility] [address] [place] [address], [facility] [place] Entitic volume (RBC)91.8 dFEmbjfg83.0-98.0The [facility] HospitalComment on above:Order Comment: This order is a replacement of the rejected order with accession number [id number].Performed By: #### 32625 #### [facility] [address] [place] [address], [facility] CENTERNucleated RBC/100 WBC Ratio (Bld)0 %Normal0-0The [facility] HospitalComment on above:Order Comment: This order is a replacement of the rejected order with accession number [id number].Performed By: #### [id number] #### [facility] [address] [place] [address], USAPLAT ENC762 10*3/hUNixidl731-827Kwe [facility] HospitalComment on above:Order Comment: This order is a replacement of the rejected order with accession number [id number].Performed By: #### 83884 #### [address] [place] [address], [facility] CENTERRBC #/vol (Bld)2.94 10*6/uLLow3.80-5.00The [facility] HospitalComment on above:Order Comment: This order is a replacement of the rejected order with accession number [id number].Performed By: #### 98706 #### [place] [address], [facility] CENTERWBC #/vol (Bld)5.98 10*3/uLNormal4.00-10.60The [facility] HospitalComment on above:Order Comment: This order is a replacement of the rejected order with accession number [id number].Performed By: #### 66859 #### [place] [address], [facility] LEFT 1 OR 2 VWS WITH PELVISon 90-32-0087OKN LEFT 1 OR 2 VWS WITH PELVISUnVeterans Health Administration Department of Radiology [address] [place] [id number] Patient Name: KAYLEIGH BROWN : 1950 Sex: F Age: Race: White Pt. Location: [id number] Patient Status: I Ordered Date: 10/02/2018 7:15:00 [...] Documentation Electronically signed by:Chuckie Harris. Transcribed by: [email or web address], User Resident: Electronically Signed by: CHUCKIE HARRIS @ 10/03/2018 05:06 [facility] HospitalComment on above:Order Comment: No: Do not add to previous drawPORTABLE HIP LEFT 1 OR 2 VWS WITH PELVISon 23-31-6126IDUPAIKP HIP LEFT 1 OR 2 VWS WITH PELVISUnVeterans Health Administration Department of Radiology [address] [place] [phone] Patient Name: KAYLEIGH BROWN : 1950 Sex: F Age: Race: White Pt. 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 Transcribed by: [email or web address], User Resident: Electronically Signed by: CHUCKIE HARRIS @ 10/03/2018 10:05 AMNormalSumma Health Akron CampusComment on above:Order Comment: No: Do not add to previous drawSODIUM BLOODon 28-53-7763Givzjl molar njyr004 mmol/LXke531-457Gfg [facility] HospitalComment on above:Order Comment: No: Do not add to previous drawPerformed By: #### [id number] #### [facility] [address] [place] [address], USAVENOUS BLOOD GASon 84-14-5832JRJF EXCESS2 mmol/LNormal-2-2 The [facility] HospitalComment on above:Performed By: #### 13598 #### [facility] [address] [place] [address], USADELIVERY SYSTEMSUNKNOWN - ORNormalThe [facility] HospitalComment on above:Performed By: #### 55896 #### [facility] [address] [place] [address], USAHCO3 molar conc (Bld)27 mmol/HLprono29-47Fkg [facility] HospitalComment on above:Performed By: #### 28621 #### [facility] [address] [place] [address], USAOxygen ppres (Bld)35 mm[Hg]Gyr94-411Adl [facility] HospitalComment on above:Performed By: #### 68802 #### [facility] [address] [place] [address], USAOxygen saturation in Blood65.8 %Faqsmb45.0-85.0The [facility] HospitalComment on above:Performed By: #### 91120 #### [facility] [address] [place] [address], NIVSJW321 ypFkCcfnmy61-86Waw [facility] HospitalComment on above:Performed By: #### 62185 #### [facility] [address] [place] [address], USApH (Bld)7.40 [pH]Normal7.33-7.43The [facility] HospitalComment on above:Performed By: #### 41910 #### [facility] [address] [place] [address], USAVITAMIN D 25-HYDROXYon 38-59-8354LKMZWWV D 25-OH27.4 ng/mL Low30.0-80.0The [facility] HospitalComment on above:Result Comment: >80.0 Toxicity possiblePerformed By: #### 22285, 21664 #### [facility] [address] [place] [address], USABASIC METABOLIC PANELon 74-18-1308Rivzwbt mass conc9.1 mg/dLNormal8.6-10.3The [facility] HospitalComment on above:Order Comment: No: Do not add to previous drawPerformed By: #### 59666 #### [facility] [address] [place] [address], USAChloride molar conc98 mmol/QPinhas18-184Qqb [facility] HospitalComment on above:Order Comment: No: Do not add to previous drawPerformed By: #### 11138 #### [facility] [address] [place] [address], USACO2 molar conc26 mmol/ZFnlyic69-52Idw [facility] HospitalComment on above:Order Comment: No: Do not add to previous draw Performed By: #### 56375 #### [facility] [address] [place] [address], USACreatinine mass conc0.66 mg/dLNormal0.60-1.20The [facility] HospitalComment on above:Order Comment: No: Do not add to previous drawPerformed By: #### 66391 #### [facility] [address] [place] [address], USAGFR/1.73 sq M predicted among blacks MDRD vol rate/area (S/P/Bld)mL/min/{1.73_m2}Normal>60The [facility] HospitalComment on above:Order Comment: No: Do not add to previous drawPerformed By: #### 87697 #### [facility] [address] [place] [address], USAGFR/1.73 sq M predicted among non-blacks MDRD vol rate/area (S/P/Bld)mL/min/{1.73_m2}Normal>60The [facility] Comment on above:Order Comment: No: Do not add to previous drawPerformed By: #### 61249 #### [facility] [address] [place] [address], USAGlucose mass sxoi297 mg/ePWoin82-355Uyb [facility] HospitalComment on above:Order Comment: No: Do not add to previous drawPerformed By: #### 07615 #### [facility] [address] [place] [address], USAPotassium molar conc4.2 mmol/LNormal3.5-5.1The [facility] HospitalComment on above:Order Comment: No: Do not add to previous drawPerformed By: #### 32690 #### [facility] [address] [place] [address], USASodium molar auuy738 mmol/NOpe772-048Uzt [facility] HospitalComment on above:Order Comment: No: Do not add to previous drawPerformed By: #### [id number] #### [facility] [address] [place] [address], USAUrea nitrogen mass conc13 mg/dLNormal7-25The [facility] HospitalComment on above:Order Comment: No: Do not add to previous drawPerformed By: #### 06558 #### [facility] [address] [place] [place] [address], [facility]ICAL CENTERCBC COMPLETE BLOOD COUNTon 53-38-7985Ynrojaedept distribution width Ratio (RBC)14.2 %Fbilxt32.5-15.0The [facility] HospitalComment on above:Order Comment: No: Do not add to previous draw Performed By: #### [id number] #### [facility] [address] [place] [address], [facility] MEDICAL CENTERHematocrit Volume Fraction (Bld)26.7 %Low36.0-45.0The [facility] HospitalComment on above:Order Comment: No: Do not add to previous drawPerformed By: #### [id number] #### [facility] [address] [place] [address], USAHemoglobin mass conc (Bld)8.7 g/dLLow12.0-15.0The [facility] HospitalComment on above:Order Comment: No: Do not add to previous drawPerformed By: #### [id number] #### [facility] [address] [place] [address], [facility] Entitic mass (RBC)30.2 uuFbsupq55.0-33.0The [facility] HospitalComment on above:Order Comment: No: Do not add to previous drawPerformed By: #### [id number] #### [facility] [address] [place] [address], [facility]LEHC mass conc (RBC)32.6 g/fGHqohve73.0-35.0The [facility] HospitalComment on above:Order Comment: No: Do not add to previous drawPerformed By: #### [id number] #### [facility] [address] [place] [address], [facility] Entitic volume (RBC)92.7 gJHgusix86.0-98.0The [facility] HospitalComment on above:Order Comment: No: Do not add to previous drawPerformed By: #### [id number] #### [facility] [address] [place] [address], [facility] MEDICAL CENTERNucleated RBC/100 WBC Ratio (Bld)0 %Normal0-0The [facility] HospitalComment on above:Order Comment: No: Do not add to previous drawPerformed By: #### [id number] #### [facility] [address] [place] [address], [facility] MEDICAL CENTERPLAT [id number] 10*3/sKMoatpe520-400Qut [facility] HospitalComment on above:Order Comment: No: Do not add to previous draw Performed By: #### [id number] #### [facility] [address] [place] [address], [facility] CENTERRBC #/vol (Bld)2.88 10*6/uLLow3.80-5.00The [facility] HospitalComment on above:Order Comment: No: Do not add to previous drawPerformed By: #### [id number] #### [facility] [address] [place] [address], [facility] CENTERWBC #/vol (Bld)6.63 10*3/uLNormal4.00-10.60The [facility] HospitalComment on above:Order Comment: No: Do not add to previous drawPerformed By: #### [id number] #### [address] [address], USACT LOWER EXTREMITY WO CONTRAST LEFTon 65-83-8562ZB LOWER EXTREMITY WO CONTRAST LEFTUnVeterans Health Administration Department of Radiology [address] [place] [phone] Patient Name: KAYLEIGH BROWN : 1950 Sex: F Age: Race: White Pt. Location: [id number] Patient Status: I Ordered Date: 10/01/2018 4:45:00 [...] stem. Electronically signed by:Chuckie Harris. Transcribed by: [email or web address], User Resident: Electronically Signed by: CHUCKIE HARRIS @ 10/02/2018 09:09 [facility] CenterComment on above:Order Comment: R/O Fractures, CT scan of entire femur for preop evaluationFEMUR LEFT 2 [facility] 94-62-0498DMSDA LEFT 2 [facility]niF[facility] Department of Radiology [address] [place] [phone] Patient Name: KAYLEIGH BORWN : 1950 Sex: F Age: Race: White Pt. Location: [id number] Patient Status: I Ordered Date: 10/01/2018 3:55:00 [...] CT Electronically signed by:Chuckie Harris. Transcribed by: [email or web address], User Resident: Electronically Signed by: CHUCKIE HARRIS @ 10/02/2018 09:33 AMNormalThe [facility] HospitalComment on above:Order Comment: R/O FXPROTHROMBIN TIMEon 69-92-0886VSQ Coag RelTime (PPP)1.12 {INR}Normal0.91-1.16The [facility] HospitalComment on above:Order Comment: No: Do not [...] OPTIMAL THERAPEUTIC RANGE. CHEST 1995;108:231S-246S.Performed By: #### [id number] #### [facility] [address] [place] [address], [facility] CENTERProthrombin time (PT) Coag time (PPP)14.4 uHfqhcz75.3-14.8 The [facility] HospitalComment on above:Order Comment: No: Do not add to previous drawResult Comment: ALL RESULTS MUST BE INTERPRETED WITH RESPECT TO BLOOD DRAWING ARTIFACT OR DILUTION ERROR OF ANTICOAGULANT AT THE TIME OF SAMPLING.Performed By: #### [id number] #### [facility] [address] [place] [address], USARBC'S 2 UNITSon 76-94-9771QSTTKKIZXN INTERP 1CSt. Charles HospitalComment on above:Performed By: #### [id number] #### [facility] [address] [place] [place] [address], [facility] MEDICAL CENTERCROSSMATCH INTERP 2CSt. Charles HospitalComment on above:Performed By: #### [id number] #### [facility] [address] [place] [address], [facility] CENTERProtein mass ewsi058 g/dLNoNorwalk Memorial HospitalComment on above:Performed By: #### [id number] #### [facility] [address] [place] [place] [address], [facility] CENTERProtein mass concRENoNorwalk Memorial HospitalComment on above:Result Comment: Result changed by IF on 10/02/2018 16:58. The previous value was XM. Result changed by IF on 10/02/2018 21:55. The previous value was IS. Result changed by IF on 10/05/2018 06:35. The previous value was XM.Performed By: #### [id number] #### [facility] [address] [place] [address], USAUNIT ABO 1[facility] Comment on above:Performed By: #### [id number] #### [facility] [address] [place] [address], USAUNIT ABO 2[facility] Comment on above:Performed By: #### 78746 #### [facility] [address] [place] [address], USAUNIT ID [id number]'s Hospital for RehabilitationComment on above:Performed By: #### [id number] #### [facility] [address] [place] [address], USAUNIT ID [id number]'s Hospital for RehabilitationComment on above:Performed By: #### [id number] #### [facility] [address] [place] [address], USAUNIT RH 1PosiSuburban Community Hospital & Brentwood HospitalComment on above:Performed By: #### 65414 #### [facility] [address] [place] [address], USAUNIT RH 2PositiveChildren's Hospital for RehabilitationComment on above:Performed By: #### 59903 #### [facility] [address] [place] [address], USATYPE AND SCREENon 13-47-8833XOA INTERPRETATIONTrinity Health System East CampusComment on above:Performed By: #### [id number] #### [facility] [address] [place] [address], USARH INTERPRETATIONPositiveChildren's Hospital for RehabilitationComment on above:Performed By: #### 12807 #### [facility] Vital Signs Date TimeVital SignValuePerforming KzbplvhagMuuntlti72-00-7249 09:04-0400Body .72 cmDaifeanyi Jarvis DO Work Phone: [facility]08-20-2025 09:04-0400 Body mass index (BMI) [Ratio]31.3 kg/u8Akftiifeanyi Jarvis DO Work Phone: [phone]73[facility]08-20-2025 09:04-0400 Body ovrfveroeex93 [degF]Christina Jarvis DO Work Phone: [phone])[address]08-20-2025 09:04-0400 Body yfrrmc90.44 kgDaifeanyi Lockwoodzac DO Work Phone: [phone]14[facility]08-20-2025 09:04-0400 Diastolic blood wyhpftqw67 mm[Hg]Christina Jarvis DO Work Phone: [phone]21[facility]08-20-2025 09:04-0400 Heart rate83 /minDavikaron Matheus DO Work Phone: [phone])[address]08-20-2025 09:04-0400 SaO2% (BldA) [Mass fraction]98 %Christina Jarvis DO Work Phone: [phone]08-20-2025 09:04-0400 Systolic blood spvdrrha833 mm[Hg]Christina Jarvis DO Work Phone: [phone]11-08-2024 11:55-0500 Body ezlizc924.72 cmHolzer Health System11-08-2024 11:55-0500Body mass index (BMI) [Ratio]33.5 kg/p3FdkjglbmzHolzer Health System11-08-2024 11:55-0500Body mtsfojmksgq14.6 [degF][facility]11-08-2024 11:55-0500Body gsrjor116.01 kgHolzer Health System11-08-2024 11:55-0500Diastolic blood vlgnufqw09 mm[Hg][facility] 08-31-2024 11:55-0500Heart rate89 /[facility] 08-31-2024 11:55-0500Respiratory rate16 /[facility] 08-31-2024 11:55-5733MvQ8% (BldA) [Mass fraction]97 %[facility]11-08-2024 11:55-0500Systolic blood xhyjpiim868 mm[Hg][facility]08-05-2024 14:42-0400Body hhzgow045.41 cmDO Christina Jravis Work Phone: [phone]08-05-2024 14:42-0400 Body mass index (BMI) [Ratio]46.3 kg/m2DO Christina Jarvis Work Phone: [phone]08-05-2024 14:42-0400 Body eklmpvccjbx87 [degF]DO Christina Jarvis Work Phone: [phone])[address]08-05-2024 14:42-0400 Body fdiboy20.97 kgDO Christina Jarvis Work Phone: [phone])[address]08-05-2024 14:42-0400 Diastolic blood hmkkovyn80 mm[Hg]DO Christina Jarvis Work Phone: [phone]08-05-2024 14:42-0400 Heart rate94 /Yvette Jarvis Work Phone: [phone])254[address]08-05-2024 14:42-0400 Respiratory rate18 /Yvette Jarvis Work Phone: [phone])207[address]08-05-2024 14:42-0400 SaO2% (BldA) [Mass fraction]95 %DO Christina Jarvis Work Phone: [phone] [address]08-05-2024 14:42-0400 Systolic blood hazmvyfm102 mm[Hg]DO Christina Jarvis Work Phone: [phone])[address]03-18-2022 11:30-0400 Body .26 cmDaifeanyi Jarvis Other [employer] Other 03-18-2022 11:30-0400Body mass index (BMI) [Ratio] 32.63 kg/t8BdmvrChristina Jarvis Other [employer] Other 03-18-2022 11:30-0400Body tfrkuomriac42.6 [degF]Christina Jarvis Other [employer] Other 03-18-2022 11:30-0400Body fhkngy660.25 kgChristina Jarvis Other [employer] Other 03-18-2022 11:30-0400Diastolic blood ravpzevb35 mm[Hg] Christina Jarvis Other [employer] Other 03-18-2022 11:30-0400Respiratory rate18 /minDzaheer Jarvis Other [employer] Other 03-18-2022 11:30-8161EiA4% (BldA) [Mass fraction]98 % Christina Jarvis Other [employer] Other 03-18-2022 11:30-0400Systolic blood dnmagzak596 mm[Hg] Christina Jarvis Other [employer] Other Encounters Encounter DateEncounter TypeCare ProviderFacilityStart: 90-75-7482vgwrwvgdwf Christina JarvsiFacility:[facility]ightart: 06-12-2025 End: 39-62-3224psrranzynbNktux Girvin DO Work Phone: [facility] Work Phone: Start: 06-12-2025 End: 07-99-6362Szhicsn encounter procedureDaifeanyi Jarvis DO-[facility] Work Phone: Start: 06-10-2025 End: 63-68-2455Lykrrse encounter procedureDaifeanyi Jarvis DO-[facility] [place] Work Phone: Start: 06-10-2025 End: 17-27-7832sxzzqeqemiKtfms Girvin DO Work Phone: [facility] Work Phone: Start: 08-31-2024 End: 17-15-0705vcqwghxrdqLougacotf [facility] Work Phone: Start: 08-31-2024 End: 82-64-6567Xjehjcy encounter procedureAt[facility] Work Phone: Start: 05-28-2024 End: 95-39-5029drvgvzrdtlYQ Christina Jarvis Work Phone: [facility] Work Phone: Start: 05-28-2024 End: 50-03-9833Pcbblzn encounter procedureDO Christina Jarvis Work Phone: [facility] Work Phone: Start: 05-24-2024 End: 45-88-0713barhwniibkHR David Girvin Work Phone: [facility] Work Phone: Start: 05-24-2024 End: 36-52-6308Drzlsco encounter procedureDO Christina Jarvis Work Phone: [facility] [place] Work Phone: Start: 69-63-9587Zxj-patient / Non-visitDO Christina Jarvis Work Phone: [facility] Work Phone: Start: 05-18-2023 End: 50-92-6907yevpvuqkywMgnni Girvin Other noRayn Other Start: 92-27-1278Jshclvkjg encounterDaifeanyi [facility] [place]vueStart: 02-04-2023 End: 29-85-4432alrphahfprWZ David Matheus Work Phone: [facility] Work Phone: Start: 02-04-2023 End: 51-33-8405Ctaqwzq encounter procedureDO Christina Jarvis Work Phone: [facility] [place] Work Phone: Start: 01-28-2023 End: 96-82-3710mzzajyqqhnWheai Girvin Other [employer] Other Start: 94-81-1953Jncmawjvg encounterDavikaron [facility]vueStart: 12-22-2022 End: 78-60-8196iofahatcqiXD MARY MAY .Facility:X9Cirlu: 10-11-2022 End: 29-83-7917juzfllhibqGsywv Girvin Other [employer] Other Start: 85-99-7016Yjfozvkav encounterDavikaron [facility] BellevueStart: 09-29-2022 End: 18-08-0357rcxagjclpkCfvji Girvin Other [employer] Other Start: 00-50-5228Ghpvbnrgz encounterDavikaron CunninghamG [facility] BellevueStart: 01-08-2022 End: 12-05-9161kzmvpbyfzqAcrvv Girvin Other noFINXI [employer] Other Start: 67-89-5753Tbhxkw outpatient visit 25 minutes Christina [facility] [place]vueStart: 01-02-2019 End: 46-92-2786Jrwiojn encounter procedureGREGORY OTTOFacility:[facility]ICEStart: 11-27-2018 End: 58-45-6597Pwjbeky encounter procedureGREGORY OTTOFacility:[facility] SERVICEStart: 10-18-2018 End: 88-70-4448Lngmdsb encounter procedureGREGORY OTTOFacility:[facility] SERVICEStart: 10-01-2018 End: 70-52-4801Cliddykzau and management of inpatientNABIL EBRAHEIMFacility:[facility] Procedures DateProcedureProcedure DetailPerforming ClinicianStart: 87-61-8613Wcood culture Christina Jarvis Work Phone: Start: 65-51-6134Fqrpupyo screenNABIL EBRAHEIMComment on above:Performed By: #### [id number] #### [facility] [address] [place] [address], USAStart: 00-31-2348YWOUEPU OF SYNTH SUB FROM L HIP JT, FEMORAL, OPEN APPROACHNABIL EBRAHEIMStart: 53-14-0576EHYROBL L HIP JT, FEMORAL W METAL, UNCEMENT, OPENNABIL EBRAHEIMStart: 67-88-6194NIPJDWSCRZ LEFT FEMORAL SHAFT WITH INT FIX, OPEN APPROACHNABIL EBRAHEIMStart: 93-81-4263Bszykxmj screen PETE EBRAHEIMComment on above:Performed By: #### [id number] #### [facility] [address] [place] [address], USAStart: 80-88-9298GZROQIJNU NONAUT RED BLOOD CELLS IN PERIPH VEIN, PERCNABIL EBRAHEIM Plan of Treatment DateCare ActivityDetailAuthorStart: 27-85-6715Uziaqocf identified in Urine by CultureUrine [facility] Centertart: 05-00-5884Xyrey [facility] West Campustart: 78-18-0998Vuzbnzuu identified in Urine by [facility] Centertart: 79-52-6378Wcgmknxk identified in Urine by [facility] HospitalBacteria identified in Urine by [facility] HospitalComprehensive metabolic 1999 panel - Serum or PlasmaHol[facility] Health System Comprehensive metabolic 2000 panel - Serum or PlasmaHolzer Health SystemGlucose measurement estimated from glycated hemoglobinHolzer Health SystemGlucose measurement estimated from glycated hemoglobinHolzer Health SystemGlucose measurement estimated from glycated hemoglobin [facility] SystemHemoglobin A1c/Hemoglobin.total in Blood [facility] SystemHemoglobin A1c/Hemoglobin.total in Blood [facility] SystemUrine cultureOroville Hospital Immunizations Immunization DateImmunizationNotesCare AslbagcoBpixfiyf30-72-3333CTKOV-55 Comirnaty (Pfizer) Tri-Sucrose 12+[facility]10-22-2024 influenza, high dose seasonal, preservative-freeHolzer Health System01-04-2024RSV, preF3, adj, pfHolzer Health System10-02-2023 COVID-19 (PFIZER) 12Y and olderHol[facility] Health System 78-31-5002Qbhvzarin vaccine, quadrivalent, adjuvantedHol[facility] Health System09-22-2022COVID-19 mRNA Bivalent Booster (Pfizer)[facility]09-22-2022Fluzone QIV High-Dose 65YR+[facility]03-18-2022Shingrix 50 MCG/0.5ML; Translations: [Shingrix 50 MCG/0.5ML] Christina Jarvis Other [employer] Other 10419961-07-2520TDDGH-36 Vaccine Pfizer - Documentation Purposes OnlyChristina Jarvis Other [facility]09-20-2021influenza, seasonal, injectableDaifeanyi Jarvis Other [facility]09-20-2021Fluzone QIV High-Dose 65YR+[facility]02-23-2021COVID-19 Vaccine Pfizer - Documentation Purposes OnlyChristina Jarvis Other [facility]02-02-2021COVID-19 Vaccine Pfizer - Documentation Purposes OnlyChristina Jarvis Other [address] [place], [place] 9135209-17-2020Seasonal trivalent influenza vaccine, adjuvanted, preservative [facility]09-17-2020influenza, seasonal, injectableDavid Girvin Other [address] [place], [place] 9135210-09-2019influenza, seasonal, injectableDavid Girvin Other [address] [place], [place] 913[address]10-09-2019influenza, high dose seasonal, preservativeUniversity Hospitals Geneva Medical Center10-17-2018 influenza, high dose seasonal, preservativeUniversity Hospitals Geneva Medical Center10-17-2018influenza, seasonal, injectableDavid Girvin Other [address] [place], [place] 9135210-13-2017influenza, high dose seasonal, preservativeUniversity Hospitals Geneva Medical Center11-07-2016 influenza, seasonal, injectableDavid Girvin Other [address] [place], [place] 9135211-04-2016 pneumococcal conjugate vaccine, 13 valentDavid Girvin Other [address] [place], [place] 9135210-20-2015 pneumococcal polysaccharide vaccine, 23 valentDavid Girvin Other [address] [place], [place] 9135210-03-2014zoster vaccine, liveDavid Girvin Other [address] [place] [address] Payers DatePayer CategoryPayerPolicy [id number] [id number] [id number] Health IjfdfwrqqPSSKBCPR47-57-1515Dgueykg [id number] .1.866344.3.57[id number] .1.820850.3.57[id number] 2.0.1.588026.3.57[id number] 2.0.1.128184.3.57[id number] 2.0.1.22[id number] [id number]-x11s-[id number]-[id number] 2.0.1.2[id number] 2.0.1.014504.3.579.2.531 Social History DateTypeDetailFacilityUnknown if ever smokedCordova [employer] Other Sex Assigned At BirthSex Assigned At CrowdboosterFINXI [employer] Other Start: 68-69-9002Ksl Assigned At [facility] Hospitaltart: 02-07-2023 End: 50-76-7832Vqkvkdt smoking status NHISNever smoked tobacco (finding) [facility]ightart: 64-61-2669VknJuolsl (finding)[facility] Clinical Notes 02-12-2021 to 05-18-2023 Note Date & RowbOkkoGksglali48-20-1143 Evaluation note* Encounter Date Diagnosis Assessment Notes Treatment Notes Treatment Clinical Notes Apr, Gastritis (ICD-10 - K29.70) [employer] Other [id number] Evaluation note* Encounter Date Diagnosis Assessment Notes Treatment Notes Treatment Clinical Notes Jan, Hypertension (ICD-10 - I10) Jan,Hyperlipidemia (ICD-10 - E78.5) Jan,Hyperglycemia (ICD-10 - R73.9) Jan,Weight loss (ICD-10 - R63.4) Jan,Hematuria (ICD-10 - R31.9) Jan,Other nursing home (current) drug therapy (ICD-10 - Z79.899) [employer] Other 03-18-2022 Evaluation note* Encounter Date Diagnosis [...] is 2.16 which is normal. 18 Dec,2Other terminal block assembler (current) drug therapy (ICD-10 - Z79.899) Dec,ther She will be having cataract surgery with Dr. Thornton. I did recommend that she get the Shingrix vaccine series. She can obtain this at her local pharmacy. A prescription was provided. [employer] Other 293791-29-6749 Note [id number]#1.00CD:127[facility] 02-12-2021 NoteCystoscopy ? Voiding after the [...] if you have a fever over 100 degrees.[facility] Evaluation noteNo InformationNortEdgewood Surgical Hospital [employer] Other Evaluation noteNo assessment information available [facility] Work Phone: Evaluation note* Diagnosis Onset Date Resolution Status Depression acuteGastritisacuteHematuriaacuteHyperglycemiaacuteHyperlipidemiaacute Hypertensionacute [facility] Work Phone: Evaluation note* Diagnosis Onset Date Resolution Status Admit Date Balance problem acuteAugust 2024 9:14amDepressionacuteAugust 2024 9:14amGastritis acuteAugust 2024 9:14amHematuriaacuteAugust 2024 9:14amHyperglycemia acuteAugust 2024 9:14amHyperlipidemiaacuteAugust 2024 9:14am HypertensionacuteAugust 2024 9:14amIntentional weight lossacuteAugust 2024 9:14am [facility] Work Phone: History general Narrative - Reported* Type Description Date Medical History Last Pap 2010; Dr. Gonsalez Medical HistoryLast Mammogram ; [facility] (normal)Medical History No history of Stress Test, Colonoscopy or CT of the Abdomen or PelvisMedical HistoryLast EKG around age 19 before surgeryMedical HistoryNo history of FracturesMedical HistoryHistory of Chicken Pox as a ChildMedical History [facility]amm[facility] 08-15-13; [facility]Medical HistoryFlu Vaccine and Pneumonia Vaccine 2014Medical HistoryPt has O positive bloodSurgical HistoryT & A as a childSurgical Historybilateral breast biopsies; all were benignSurgical HistoryLeft knee replacement, Dr. RandallMpmoluub00-7-5938Qsewffwj Historyrt knee replacement Dr Randall02/11/urgical HistoryMRI of back - Dr HolbrookYsaojkq6892 Surgical HistoryXR of hip - Dr RandallCbpdfbxv9324Tqarwlak HistoryPain clinic - injection left zlk0762Axtabgor Historymammogram -08/2016Surgical Historyhip inj Dr Randall10/2017Surgical Historymammogram01/2018Surgical HistoryCT with contrast 08/24/18urgical Historyleft hip praljbftlbl86/5/2018Surgical Historyfemur fracture waarqeg74/8/2018Surgical HistoryCystoscopy - Dr. Acosta02/12/21 Hospitalization Historysee above [employer] Other History general Narrative - Reported* Type Description Date Medical History Last Pap 2010; Dr. Gonsalez Medical HistoryLast Mammogram ; [facility] (normal)Medical History No history of Stress Test, Colonoscopy or CT of the Abdomen or PelvisMedical HistoryLast EKG around age 19 before surgeryMedical HistoryNo history of FracturesMedical HistoryHistory of Chicken Pox as a ChildMedical History Mammogram 08-15-13; [facility]Medical HistoryFlu Vaccine and Pneumonia Vaccine 2014Medical HistoryPt has O positive bloodSurgical HistoryT & A as a childSurgical Historybilateral breast biopsies; all were benignSurgical HistoryLeft knee replacement, Dr. RandallWeqjbtqy73-5-3688Eptzbxkb Historyrt knee replacement Dr Randall02/12/16urgical HistoryMRI of back - Dr HolbrookItbumse0287 Surgical HistoryXR of hip - Dr RandallJyotwsen0708Mifyxvuc HistoryPain clinic - injection left ojz2654Waugwhgs Historymammogram -08/2016Surgical Historyhip inj Dr Randall10/2017Surgical Historymammogram01/2018Surgical HistoryCT with contrast 08/24/18urgical Historyleft hip bfncjzgnaeo59/5/2018Surgical Historyfemur fracture sqbczdi96/8/2018Surgical HistoryCystoscopy - Dr. Acosta02/12/21Surgical HistoryCatartact surgeryurgical HistoryColonoscopy (colon polyp) & EGD Dr. May / see report/ repeat colonoscopy 5 years 59899-5-63Zevfxfszejvfszo Historysee above [employer] Other Reason for referral (narrative)* Reason appt referral for colonoscopy/positive FIT Diagnosis 1 Positive occult stoo l blood test (R19.5) Referral Organization [facility] Referring Provider First Name Christina Referring Provider Last Name Matheus Referring Provider Specialty Family Prac alban Referred Organization [facility] Referred Provider Polo Lyn Referred Address [address],[address] Referred Provider Specialty Gastroentero logy Referral Priority Routine General Notes Mary Ann Maurer 09/29/2022 03:45:56 PM > referral sent p2p. pt understands that she will be contacted to schedule this appt. [employer] Other Reason for referral (narrative)No reason for referral information availablePomerene Hospital Work Phone: Summary Purpose Family History No [...] Time Advance Directives No January 31 023 9:27am Advance Directive Response Recorded Date/ Time Advance Directives No January 31 023 8:27am Hospital Course Note MR#: [id number] [facility] Pt. Name: Kayleigh Brown Admitted: 10/01/2018 [...] and content) DATE CREATED AUTHOR 01/10/2019 [facility] DATE CREATED AUTHOR AUTHOR'S ORGANIZ ATION 03/16/2021 [facility] DATE CREATED AUTHOR AUTHOR'S ORGANIZ ATION 12/31/2022 [facility] DATE CREATED AUTHOR AUTHOR'S ORGANIZ ATION 08/30/2025 [facility] REASON FOR VISIT (unrecogniz ed [...] Provider Active S tart: March 08, 2024 Saiard Russia , LPNAttending ProviderActiveStart: March 08, 2024 Team Status: Inactive [...] BE BASED ON THE PRIMARY CLINICAL RECORDS. [employer] provides no warranty or guarantee of the accuracy or completeness of information in this document.
[2025-09-23 16:57] VITALS: BP 123/71; PULSE 78; O2SAT 98
== END 2025-09-23 17:00 | disposition home or self-care (01) ==
PROVIDERS: Emergency Provider Emergency Medicine; PCP Family Medicine
DX: S60.211A Contusion of right wrist, initial encounter (principal); W01.0XXA Fall on same level from slipping, tripping and stumbling without subsequent striking against object, initial encounter; Z79.01 Long term (current) use of anticoagulants; I48.91 Unspecified atrial fibrillation
CPT/HCPCS: 73110; 99283

== ENCOUNTER 2025-09-23 23:32 | Inpatient (IN) | payer MEDICARE, SELFPAY ==
[2025-09-23 23:35] VITALS: BP 137/72; PULSE 82; TEMP 36.7; O2SAT 97; BMI 31.0
[2025-09-24] VITALS (27 sets, daily range): BP systolic 102–169; BP diastolic 60–82; PULSE 66–99; TEMP 36.4–37.5; O2SAT 91–99; BMI 31.9
--- NOTE | 2025-09-24 00:02 | ED.FALL1 ---
HPI HPI - Fall General Chief Complaint: Fall Stated Complaint: Fall Time Seen by Provider: 09/23/25 23:44 Source: patient Mode of arrival: ambulance Limitations: no limitations History of Present Illness HPI Narrative: patient seen earlier today after a fall. states she loss her balance and fell injuring her right wrist. xray neg for fracture. At home tonight she had bent down to feed her kittens. She then stood up and was at the pantry and started to feel warm and light headed. She then walked over to a high chair and sat down at the table. Laid her head down on the counter and woke up on the floor. Fortunately had her phone with her and was able to call [facility] who helped her up and transferred her here. She did not feels she could get up on her own. States she feels ok now. she has a history of A. Fib and takes xarelto Related Data Home Medications ?Medication ?Instructions ?Recorded ?Confirmed buspirone 15 mg tablet 15 mg PO Q12H 08/25/24 09/24/25 omeprazole 40 mg capsule,delayed 40 mg PO DAILY 08/25/24 09/24/25 release rosuvastatin 5 mg tablet 5 mg PO Q48H 08/25/24 09/24/25 venlafaxine 150 mg 150 mg PO DAILY 08/25/25 09/24/25 capsule,extended release 24 hr losartan 25 mg tablet mg 09/23/25 venlafaxine 75 mg capsule,extended mg PO 09/23/25 release 24 hr Previous Rx's ?Medication ?Instructions ?Recorded aspirin 81 mg tablet,delayed 81 mg PO QD #90 tabs 08/27/25 release diltiazem HCl 120 mg 120 mg PO DAILY #60 caps 08/27/25 capsule,extended release 24 hr (Cardizem CD) metoprolol succinate 50 mg 50 mg PO DAILY #60 tabs 08/27/25 tablet,extended release 24 hr (Toprol XL) rivaroxaban 20 mg tablet (Xarelto) 20 mg PO DAILY #30 tabs 08/27/25 Allergies Allergy/AdvReac Type Severity Reaction Status Date / Time No Known Drug Allergies Allergy Verified 09/23/25 15:31 Opioid HPI Opioid Management Most Recent Pain and Opioid Data: Last Pain Scale 5 09/23/25, 16:08 Last ED Pain Assessment 09/23/25, 16:08 Last MAR Pain Assessment 09/23/25, 16:04 Last ORT Total Score 1 08/25/25, 20:29 Last ORT Risk Category Low Risk 08/25/25, 20:29 Review of Systems ROS Status of ROS 10 or more systems reviewed and unremarkable except as noted in history and below [facility] Medical History (Updated 09/24/25 @ 04:05 by Nishant Key MD) HTN (hypertension) ?I10 - Essential (primary) hypertension (ICD-10) Atrial fibrillation ?I48.91 - Unspecified atrial fibrillation (ICD-10) History of depression ?Z86.59 - Personal history of other mental and behavioral disorders (ICD-10) History of hyperlipidemia ?Z86.39 - Personal history of other endocrine, nutritional and metabolic disease (ICD-10) History of gastroesophageal reflux (GERD) ?Z87.19 - Personal history of other diseases of the digestive system (ICD-10) History of hypertension ?Z86.79 - Personal history of other diseases of the circulatory system (ICD-10) Surgical History History of left hip replacement ?Z96.642 - Presence of left artificial hip joint (ICD-10) History of bilateral knee replacement ?Z96.653 - Presence of artificial knee joint, bilateral (ICD-10) Family History (Updated 08/25/25 @ 20:34 by Heidi Huang RN) Mother No problems noted. Other Family history of diabetes mellitus Family history of hypertension Social History Within the past year, how often did you have a drink containing alcohol: never Within the past year, how often did you have six or more drinks on one occasion: never Score interpretation: A score less than 3 is consistent with normal alcohol consumption. Smoking status: Never smoker Non-prescribed substance use: denies use Previous occupational history: retired Highest level of school completed/degree received: some college, no degree Are you now , , , , never or living with a partner: In a typical week, how many times do you talk on the telephone with family, friends, or neighbors: 3 or more times per week How often do you get together with friends or relatives: 3 or more times per week How often do you attend yazdanism or presybeterian services: 4 or more times per year Do you belong to any clubs or organizations such as yazdanism groups unions, fraternal or athletic groups, or school groups: yes Total score: 3 Score interpretation: A score of greater than or equal to 2 indicates the lowest level of social isolation. Little interest or pleasure in doing things: not at all Feeling down, depressed, or hopeless: not at all Feel stressed/tense/nervous/anxious/difficulty sleeping: not at all Exam Constitutional Vital Signs, click to edit/add: Last Vital Signs Temp 97.6 F 09/24/25 03:17 Pulse 80 09/24/25 03:17 Resp 16 09/24/25 03:17 BP 144/78 H 09/24/25 03:17 Pulse Ox 99 09/24/25 03:17 O2 Del Method Room Air 09/24/25 03:17 Common normals: no apparent distress, average body habitus, oriented x3, no limitations, healthy appearing, alert and well nourished [facility] Common normals: normocephalic and head/scalp atraumatic Eye Common normals: EOMs intact bilaterally and conjunctivae normal Respiratory Common normals: normal respiratory effort, no retractions, no use of accessory muscles and clear to auscultation bilaterally Cardio Rhythm: abnormal rhythm GI Common normals: Normal to inspection, nondistended, normoactive bowel sounds present and soft to palpation Extremity Other: swelling and ecchymosis of her wrist Neuro Common normals: oriented x3, CN's II-XII intact bilaterally, moves all extremities and no focal motor deficits Psych Appearance: grossly normal Course Vital Signs Vital signs: Vital Signs Temperature 98.0 F 09/23/25 23:35 Pulse Rate 82 09/23/25 23:35 Respiratory Rate 16 09/23/25 23:35 Blood Pressure 137/72 09/23/25 23:35 Pulse Oximetry 97 09/23/25 23:35 Oxygen Delivery Method Room Air 09/23/25 23:35 Temperature 97.6 F 09/24/25 03:17 Pulse Rate 80 09/24/25 03:17 Respiratory Rate 16 09/24/25 03:17 Blood Pressure 144/78 H 09/24/25 03:17 Pulse Oximetry 99 09/24/25 03:17 Oxygen Delivery Method Room Air 09/24/25 03:17 MDM - Fall MDM Narrative Medical decision making narrative: patient presents from home after syncopal episode. was seen earlier in the ER after fall and hematoma of the right wrist. CT brain and C-spine neg for acute findings. Troponin neg. UA clear. cxray per my preliminary impression is clear. labs discussed with hospitalist as well. jerrodnet accepted for obs admission for syncope Lab Data Labs: Lab Results 09/24/25 09/24/25 09/24/25 Range/Units 00:25 01:30 01:45 WBC 6.3 (4.0-11.0) 10^3/uL RBC 3.01 L (4.20-5.40) 10^6/uL Hgb 8.8 L (12.0-16.0) g/dL Hct 27.7 L (36.0-48.0) % MCV 92.0 (81.0-99.0) fL MCH 29.2 (26.7-34.0) pg MCHC 31.8 (29.9-35.2) g/dL RDW 14.1 (11.0-15.0) % Plt Count 285 (150-450) 10^3/uL MPV 9.3 L (9.5-13.5) fL Neut % (Auto) 78.8 H (43.0-75.0) % Lymph % (Auto) 10.9 L (20.5-60.0) % [place] % (Auto) 9.5 (1.7-12.0) % Eos % (Auto) 0.2 L (0.9-7.0) % Baso % (Auto) 0.3 (0.2-2.0) % Neut # (Auto) 5.0 (1.4-6.5) 10^3/uL Lymph # (Auto) 0.7 L (1.2-3.8) 10^3/uL [place] # (Auto) 0.6 (0.3-0.8) 10^3/uL Eos # (Auto) 0.0 (0.0-0.7) 10^3/uL Baso # (Auto) 0.0 (0.0-0.1) 10^3/uL Abs Immat Gran (auto) 0.02 (0.00-0.03) 10^3/uL Imm/Tot Granulo (auto) 0.3 (0.0-0.5) % Sodium 138 (136-145) mmol/L Potassium 4.6 (3.5-5.1) mmol/L Chloride 106 (98-107) mmol/L Carbon Dioxide 27.1 (21.0-32.0) mmol/L Anion Gap 9.5 BUN 20.0 H (7.0-18.0) mg/dL Creatinine 0.91 (0.55-1.02) mg/dL Est GFR ( Amer) >60 (>=60 mL/min/1.73m^2) Est GFR (Non-Af Amer) >60 (>=60 mL/min/1.73m^2) BUN/Creatinine Ratio 22.0 Glucose 131 H (74-106) mg/dL Lactate 1.3 (0.4-2.0) mmol/L Calcium 9.4 (8.5-10.1) mg/dL Troponin I High Sens 7.2 (4.0-51.3) pg/mL Urine Color Yellow (YELLOW) Urine Clarity Clear (CLEAR) Urine pH 5.5 (5.0-9.0) Ur Specific [place] 1.025 (1.005-1.025) Urine Protein Negative (NEG/TRACE) mg/dL Urine Glucose (UA) Negative (NEGATIVE) mg/dL Urine Ketones >=80 A (NEGATIVE) mg/dL Urine Occult Blood Negative (NEGATIVE) Urine Nitrite Negative (NEGATIVE) Urine Bilirubin Small A (NEGATIVE) Urine Urobilinogen 1.0 (0.2-1.0) EU/dL Ur Leukocyte Esterase Negative (NEGATIVE) Urine RBC 2-5 A (0-2) #/HPF Urine WBC 0-2 A (NONE SEEN) #/HPF Ur Squamous Epith Cells Rare (NONE/RARE) #/LPF Urine Crystals None seen (None Seen) #/HPF Urine Bacteria Trace A (NONE SEEN) #/HPF Urine Casts None seen (NONE SEEN) #/LPF Urine Mucus None seen (NONE SEEN) Ur Culture Indicated? No Discharge Plan Discharge Chief Complaint: Fall Clinical Impression: Syncope Patient Disposition: Admitted as Observation
--- NOTE | 2025-09-24 00:07 | XR_ITS ---
The [address] [address] Patient Name: JANELLE BROWN MRN: [id number] date: 1950 Sex: F Assigned Patient Location: ED.MAIN Current Patient Location: ID Accession/Order Number: [id number] Exam Date: 09/24/2025 00:45 Report Date: 09/24/2025 09:33 At the request of: MARIANA MENDOZA MD Procedure: XR chest 1V PORTABLE AP ERECT CHEST CLINICAL HISTORY: syncope COMPARISON: 08/25/2025 The cardiac and mediastinal contours are similar. There is no vascular congestion. Minor atelectasis or scarring is noted. No developing consolidation is seen.. There is no effusion or pneumothorax. The bony structures are osteopenic. XR/XR chest 1V IMPRESSION: NO ACUTE FINDINGS Impression dictated by: Jayashree Quiles M.D. 09/24/2025 9:33 AM Dictation Location: [place] [address] Electronically authenticated by: [id number] Y Date: 09/24/2025 09:33
--- OUTSIDE RECORDS SUMMARY | 2025-09-24 00:07 | XMS_ITS | Clinical Summary ---
Author Organization [facility] Address [id number] [address] [place] [address] Care Team Providers Care Yard Person Name Role Phone Roberto Marino Guero AVITIA Primary Care Provider [phone] Allergies No known active allergies Medications MedicationSigDispense [...] standard drink = 0.6 oz pure alcohol)ChildcareAnswerDate EksswhceGepgzwfpvAogacso02/12/2019Employment AnswerDate UfqdsgbuAdxodwmxlyJdtynen87/12/2019CommentsUnknownSex and Gender InformationValueDate RecordedSex Assigned at BirthNot on fileLegal Sex Atiwpr0708/26/2015 11:15 AM ESTGender IdentityNot on fileSexual OrientationNot on file Last Filed Vital Signs Vital SignReadingTime TakenCommentsBlood Pressure--Pulse--Ssveaevdmhu35.9 ??C (96.6 ??F)12/01/2022 8:28 AM ESTRespiratory Rate--Oxygen Saturation--Inhaled Oxygen Concentration--Uyxfot137.2 kg (221 lb)12/01/2022 8:28 AM PMMAbqvcz933.3 cm (5' 9 )12/01/2022 8:28 AM ESTBody Mass Index32.64012/01/2022 8:28 AM EST Plan of Treatment Health MaintenanceDue DateLast DoneCommentsDepression Gabubjpap53/04/1961Tobacco Wjpyfyzkk85/04/1961DTaP,Tdap and Td Vaccines (1 - Tdap)1968Fall Risk Kiwkqjupu56/04/2014Zoster (Shingles) Vaccine (2 of 3)RSV ( or age 60+ yrs) (1 - 1-dose 75+ series)4COVID-19 Vaccine (5 - season)/, 07/24/2021, 12/16/2020, Additional history existsInfluenza Gpolhjx97/, 07/13/2021, 07/10/2020, Additional history exists Medical Devices Not on file Insurance Care Teams Team MemberRelationshipSpecialtyStart DateEnd Date Roberto Marino DO [address] [place] [address] [place] [address] PCP - GeneralFamily Ucafqcgt75/22/22
--- OUTSIDE RECORDS SUMMARY | 2025-09-24 00:07 | XMS_ITS | Clinical Summary ---
Author Organization [facility] Address [address] 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 Name Role Phone Roberto Marino DO Primary Care Provider [phone] Encounters DateTypeDepartmentCare MpdfEjogjgbmvrt72/30/6729Hnmkcf56/17/2025Scanned Document [facility] [address] [place] [phone] Scanning, Generic Provider 08/26/2025Scanned Document [facility] [address] [place] [phone] Scanning, Generic Provider from Last 3 Months Social History Tobacco UseTypesPacks/DayYears UsedDateSmoking Tobacco: Never Assessed CommentsUnknownSex and Gender InformationValueDate RecordedSex Assigned at Not on fileLegal BwhXjdbuy63/13/2025 8:26 AM ESTGender IdentityNot on fileSexual OrientationNot on file Plan of Treatment DateTypeDepartmentCare Team (Latest Contact Info)Nsoeudirmus65/03/2025 2:10 PM ESTOffice Visit [facility] [address] [phone] Ramirez Swift MD [address] [facility] [address] [place] [address] Health MaintenanceDue DateLast DoneCommentsLipid Panel1949Medicare Annual Wellness Visit (AWV)1949Hepatitis C Jgwosunoj14/04/1967DTaP/Tdap/Td Vaccines (1 - Tdap)1971Pneumococcal Vaccine (1 of [...] this topic Procedures Procedure NamePriorityDate/TimeAssociated DiagnosisCommentsECHOCARDIOGRAM 08/26/2025 TDZRSECRILOEMK93/03/2025 from Last 3 Months Results * Echocardiogram (08/26/2025) Narrative 08/26/2025 Ordered by an unspecified provider. Authorizing ProviderResult TypeResult StatusGeneric Provider ScanningCV ECHO PROCEDURESFinal Result * Echocardiogram (08/26/2025) Narrative 08/26/2025 Ordered by an unspecified provider. Authorizing ProviderResult TypeResult StatusGeneric Provider ScanningCV ECHO PROCEDURESFinal Result from Last 3 [place] [id number] Care Teams Team MemberRelationshipSpecialtyStart DateEnd Date Roberto Marino DO [address] [place] [address] PCP - GeneralFamily Sthclkuh67/17/25
--- OUTSIDE RECORDS SUMMARY | 2025-09-24 00:07 | XMS_ITS | CCD ---
Author Organization [facility] Care Team Providers Care Senior Receptionist Name Role Phone BEVERLY GARCIAIL Admitting Unavailable BEVERLY GARCIAIL Attending Unavailable CHRISTINA JARVIS Referring Unavailable CHRISTINA JARVIS Primary Care Unavailable [place] Procedure Practitioner Unavailab le PETE GARCIA Surgeon [...] Unavailable DO Christina Jarvis Primary Care Provider [phone] DO Christina Jarvis Attending Provider [phone] DO Christina Jarvis Primary Care Provider DO Christina Jarvis Attending Provider Christina Jarvis DO Primary Care Provider Christina Jarvis DO Attending Provider Christina Jarvis Attending Unavailable Christina Jarvis Admitting Unavailable Christina Jarvis Primary Care Unavailable Christina Jarvis Attending Unavailable Christina Jarvis Admitting Unavailable Christina Jarvis Primary Care Unavailable Allergies Allergy ClassificationReported Allergen(s)Allergy TypeDate of OnsetReaction(s) Facility (5 sources)Acetaminophen / HYDROcodoneDrug Allergyhives?[employer] Other (10 sources)atorvastatinDrug Iorbleg13-97-1152bfr painMer[facility] (10 sources)ezetimibeDrug Wcfjocr85-48-3635rnfe't likeMercy Health Tiffin Hospital (6 sources)Acetaminophen; Translations: [acetaminophen]Drug Gcloylm22-98-3192 hives?[facility] (6 sources)HYDROcodone; Translations: [hydrocodone]Drug Pyglwyj59-85-2007irtuq? [facility] (1 source)atorvastatinDrug Rtpxxdl33-68-9138ThbaoongdMercy Health Tiffin Hospital Repository (1 source)ezetimibeDrug Dpseark26-14-2381QehrgeyazMercy Health Tiffin Hospital Repository Medications Current Medications MedicationDrug Class(es)DatesSig [...] ActiveLifitegrast (Xiidra) 5 % dropperette (2 sources)Start: 73-12-6782Njupiyvnjjm (Xiidra) 5 % dropperette Active DROPS OPHTHALMIC May 27, 2024 11:00pmStart: 12-75-7298Miegghvjnia (Xiidra) 5 % dropperette Active DROPS OPHTHALMIC May 28, 2024 12:00amlosartan potassium 50 mg oral tablet (20 sources)Angiotensin 2 Receptor BlockerStart: 59-22-2188fell 1 tablet by mouth once dailyStart: 06-07-2024 End: 27-98-1925othx 1 tablet by mouth once dailyLosartan 50 mg tablet Discontinued 0 .ROUTE .COMPLEX May 14, 2025 2:21pm June 12, 2025 9:3 0am TAKE 1 TABLET BY MOUTH EVERY DAYStart: 03-08-2024 End: 14-56-2680izil 1 tablet by mouth once dailyLosartan 50 mg tablet Discontinued 50 MG PO Daily March 08, 2024 10:23am June 07, 2024 9:22am Losartan Potassium 50 mg TAKE 1 TABLET DAILY FveunkCnlsirjg-Klt-Qnct-Fa-Vit K- Lut (Centrum Silver Women) 8 mg iron-400 mcg-50 mcg tablet (4 sources)Start: 52-41-9608wzpr 1 tablet by mouth once daily Sjnoxdvh-Bbq-Dlmo-Fa-Vit K-Lut (Centrum Silver Women) 8 mg iron-400 mcg-50 mcg tablet Active 1 TAB PO Daily May 28, 2024 12:00am Complies with drug therapy Start: 93-50-4339nyip 1 tablet by mouth once dailyStart: 73-63-5964qvbp 1 tablet by mouth once rglkdJgotnirv-Lwa-Ibwx-Fa-Vit K-Lut (Centrum Silver Women) 8 mg iron-400 mcg-50 mcg tablet Active 1 TAB PO Daily May 27, 2024 11:00pmStart: 72-71-8526ptem 1 tablet by mouth once rucvbKjznwbmw-Hsh-Djlo-Fa-Vit K-Lut (Centrum Silver Women) 8 mg iron-400 mcg-50 mcg tablet Active 1 TAB PO Daily May 28, 2024 12:00amomeprazole 40 mg delayed release oral capsule (20 sources)Proton Pump InhibitorStart: 05-28-2024 End: 24-49-4191Aielcsblfv 40 mg capsule,delayed release(DR/EC) Active 40 MG PO .COMPLEX August 01, 2024 8:13am 40 mg orally TAKE 1 CAPSULE BY MOUTH EVERY DAY 30 MINUTES BEFORE MORNING MEAL; Complies with drug therapyStart: 05-01-2024 End: 17-64-1958Ghblgvfivy 40 mg capsule,delayed release(DR/EC) Discontinued 0 .ROUTE .COMPLEX May 01, 2024 12:00pm May 28, 2024 2:56pm TAKE 1 CAPSULE BY MOUTH EVERY DAY 30 MINUTES BEFORE MORNING MEAL FOR 90 DAYSStart: 02-20-2024 End: 23-49-3768uzxo 1 capsule by mouth once daily at mealtimeOmeprazole 40 mg capsule,delayed release(DR/EC) Discontinued 40 MG PO Daily February 20, 2024 3:05pmJuly 2023 12:00pm 30 min prior to a mealStart: 02-20-2024 End: 21-01-6890qalg 1 capsule by mouth every other day at mealtimeOmeprazole 40 mg capsule,delayed release(DR/EC) Discontinued 40 MG PO .QOD February 20, 2024 12:00amApril 2023 3:05pm 30 min prior to a mealOmeprazole 40 MG 1 capsule 30 min prior to a meal Orally qod Activerosuvastatin calcium 5 mg oral tablet (20 sources)HMG-CoA Reductase InhibitorStart: 94-49-7739hnxo 1 tablet by mouth every other dayStart: 06-06-2024 End: 00-53-9899pgjn 1 tablet by mouth every other dayRosuvastatin 5 mg tablet Discontinued 0 .ROUTE .COMPLEX May 14, 2025 2:21pm June 1259:30am TAKE 1 TABLET BY MOUTH EVERY OTHER DAYStart: 03-08-2024 End: 19-32-1621wlug 1 tablet by mouth every other dayRosuvastatin [...] Zoster Virus Nucleoside Analog DNA Polymerase InhibitorStart: 82-86-6540lcvy 1 tablet by mouth every eight hoursValtrex 1 GM 1 tablet Orally tid for 7 days Jan, Rulkhn69 hr venlafaxine 150 mg extended release oral tablet (20 sources)Serotonin and Norepinephrine Reuptake InhibitorStart: 87-35-9129dnbg 1 capsule by mouth once dailyVenlafaxine 75 mg capsule,extended release 24hr Active 75 MG PO daily June 12, 2025 12:00am Complies with drug therapyStart: 08-31-2024 End: 86-62-7198ospb 1 capsule by mouth once daily in the morningVenlafaxine 150 mg capsule,extended release 24hr Discontinued 150 MG PO Every morning August 1:00am June 12, 2025 9:22amStart: 05-28-2024 End: 94-85-8925ggto 1 tablet by mouth once dailyVenlafaxine 150 mg tablet extended release 24hr Active 150 MG PO Daily June 12, 2025 9:24am Dr Arnett Complies with drug therapyStart: 05-28-2024 End: 25-16-3807rdod 1 capsule by mouth once dailyVenlafaxine 75 mg capsule,extended release 24hr Discontinued 75 MG PO Daily May 28, 2024 12:00am August 31, 2024 12:43pmtake 1 tablet by mouth every twenty-four hours Venlafaxine HCl ER 150 MG 1 tablet with food Orally Once a day Active Completed/Discontinued Medications MedicationDrug Class(es)DatesSig (Normalized)Sig (Original)busPIRone hydrochloride 15 mg oral tablet (17 sources)Start: 05-28-2024 End: 08-55-7708jnuo 1 tablet by mouth twice daily, then [...] (2 sources)Lymphocyte Function-Associated Antigen-1 AntagonistStart: 05-28-2024 End: 98-41-2789Thnalguewei (Xiidra) 5 % dropperette Discontinued DROPS OPHTHALMIC May 28, 2024 12:00am June 12, 2025 9:21am Problems Active Problems Problem ClassificationProblemDateDocumented DateEpisodic/ChronicComplications of surgical procedures or medical care (3 sources)Periprosthetic fracture around internal prosthetic left hip joint, initial encounter; Translations:[PERIPROSTH FRACTURE AROUND INTERNAL PROSTH L HIP JT, INIT]Onset: 42-95-3647Hzyuvjva mellitus without complication (9 sources)Hyperglycemia, unspecified; Translations: [Hyperglycemia]Onset: 01-08-2022 Resolved: 12-46-7325QpuxfrlgJhorvurg of white blood cells (5 sources)Decreased blood leukocyte number; Translations: [Decreased white blood cell count, unspecified]ChronicDisorders of lipid metabolism (15 sources)Hyperlipidemia; Translations: [Hyperlipidemia, unspecified]Onset: 01-08-2022 Resolved: 28-49-3541HetdmpaEiajpqbmw of lipid metabolism (1 source)Pure hypercholesterolemia, unspecified; Translations: [PURE HYPERCHOLESTEROLEMIA, UNSPECIFIED]Onset: 93-00-2748Tqhqjzpsomixxq and diverticulitis (1 source)Diverticulosis of large intestine without perforation or abscess without bleeding; Translations: [DVRTCLOS LG INT NO PERF/ABSC W/O BL]Onset: 10-52-5314AwfhwbcOroukakcs hypertension (15 sources)Essential (primary) hypertension; Translations: [Hypertensive disorder]Onset: 10-01-2018 Resolved: 76-51-7945GbncpedNthfegbz of lower limb (4 sources)Unspecified fracture of left femur, subsequent encounter for closed fracture with routine healing; Translations: [UNSP FRACTURE OF LEFT FEMUR, SUBS FOR CLOS FX W ROUTN HEAL]Onset: 48-69-4161YwofhmeuNhdkxumcb and duodenitis (1 source)Unspecified chronic gastritis without bleeding; Translations: [UNS CHRONIC GASTRITIS W/O BLEEDING]Onset: 73-17-0215FevizwoCsmxjchtw and duodenitis (8 sources)Gastritis; Translations: [Gastritis, unspecified, without bleeding] EpisodicGastroduodenal ulcer (except hemorrhage) (1 source)Gastric ulcer, unspecified as acute or chronic, without hemorrhage or perforation; Translations: [GASTR ULCR UNS AC/CHRN W/O HEM/PERF]Onset: 54-34-4193HuvuklsEbmobdpedgfsb symptoms and ill-defined conditions (9 sources)Hematuria, unspecified; Translations: [Blood in urine]Onset: 01-08-2022 Resolved: 76-80-2819SqflbpgnUawd disorders (12 sources)Major depressive disorder, single episode, unspecified; Translations: [Depression]Onset: 01-08-2022 Resolved: 64-11-2259JvldyumAymh disorders (2 sources)Major depressive disorder, single episode, unspecified; Translations: [Mood disorders]Onset: 20-23-7551Zwquwidyvxmxdp (8 sources)Unilateral primary osteoarthritis, right hip; Translations: [Unilateral primary osteoarthritis, right knee]Onset: 10-48-0023OtacornGvvaa aftercare (4 sources)Other alf (current) drug therapy; Translations: [OTH NURSING HOME CURRENT DRUG THERAPY]Onset: 01-08-2022 Resolved: 78-14-6524IgloxjpcMvjhy aftercare (2 sources)Removal of sutures done; Translations: [Encounter for removal of sutures]55-90-6213DzmqijfgGexaj and unspecified benign neoplasm (1 source)Benign neoplasm of sigmoid colon; Translations: [BENIGN NEOPLASM OF SIGMOID COLON]Onset: 43-13-7150JdsvvmymMpfii and unspecified benign neoplasm (1 source)Benign neoplasm of transverse colon; Translations: [BENIGN NEOPLASM OF TRANSVERSE COLON]Onset: 74-26-0000LpknumywPzogk and unspecified benign neoplasm (1 source)Polyp of stomach and duodenum; Translations: [POLYP OF STOMACH AND DUODENUM]Onset: 64-09-5775EoavxzrdDpqdy connective tissue disease (2 sources)Presence of left artificial hip joint; Translations: [PRESENCE OF LEFT ARTIFICIAL HIP JOINT]Onset: 04-89-3206XpyvcvdBawqu connective tissue disease (2 sources)Other specified soft tissue disorders; Translations: [OTHER SPECIFIED SOFT TISSUE DISORDERS]Onset: 95-00-1035AbjsrasyZfrsb gastrointestinal disorders (4 sources)Other fecal abnormalities; Translations: [OTHER FECAL ABNORMALITIES] Onset: 14-17-4429CvpexglwDyapy nervous system disorders (2 sources)Impairment of balance; Translations: [Other abnormalities of gait and mobility]30-01-2717GttsryveDhrgn nervous system disorders (1 source)Other abnormalities of gait and mobility; Translations: [Other abnormalities of gait and mobility]Onset: 70-71-1189YsxvzypfHjjxo nutritional; endocrine; and metabolic disorders (1 source)Obesity, unspecified; Translations: [OBESITY UNSPECIFIED]Onset: 32-10-7151PgohlsaWagdw nutritional; endocrine; and metabolic disorders (1 source)Body mass index (BMI) 33.0-33.9, adult; Translations: [BODY MASS INDEX BMI 33.0-33.9 ADULT]Onset: 05-11-4579RgmqsswGzrsn nutritional; endocrine; and metabolic disorders (3 sources)Abnormal weight loss; Translations: [Abnormal weight loss]Onset: 01-08-2022 Resolved: 26-84-8993UdkfpzanRgqjh nutritional; endocrine; and metabolic disorders (2 sources)Intentional weight ugbt39-01-2276YpufnpafOkzzk screening for suspected conditions (not mental disorders or infectious disease) (5 sources)Abnormal findings on diagnostic imaging of breast; Translations: [Other abnormal and inconclusive findings on diagnostic imaging of breast] EpisodicSpondylosis; intervertebral disc disorders; other back problems (1 source)Spondylosis without myelopathy or radiculopathy, lumbar region; Translations: [SPONDYLOSIS W/O MYELOPATHY OR RADICULOPATHY, LUMBAR REGION]Onset: 00-35-7230PqynzxjIhntcsbtljaw (1 source)LEFT PERIPROSTHETIC FRACTUREOnset: 99-12-5211Tjakanheaial (1 source)LEFT FEMUR FXOnset: 28-80-2993Maqhkdjtmmmp (1 source)ESOPHAGITIS UNSPEC WITHOUT BLEEDING; Translations: [ESOPHAGITIS UNSPEC WITHOUT BLEEDING]Onset: 12-29-2022 Past or Other Problems Problem ClassificationProblemDateDocumented DateEpisodic/ChronicComplication of device; implant or graft (1 source)Fracture of femur following insertion of orthopedic implant, joint prosthesis, or bone plate, left leg; Translations: [FX FEMUR FOL INSRT ORTHO IMPLNT/PROSTH/BONE PLT, LEFT LEG]Onset: 44-37-0343BxwtmllrYiehmoqeax and other anemia (1 source)Anemia, unspecified; Translations: [ANEMIA, UNSPECIFIED]Onset: 32-44-3676AuvyidivNzipr and electrolyte disorders (1 source)Hypo-osmolality and hyponatremia; Translations: [HYPO-OSMOLALITY AND HYPONATREMIA]Onset: 13-21-7916IdkcrtkgLwlfb connective tissue disease (1 source)Pain in unspecified footOnset: 01-08-2022 Resolved: 68-80-4081Srxskjol Results Test NameValueInterpretationReference DpijwOkyygvasR9T with Estimated Average Gluon 25-36-0769Tshnejm [Mass/Vol]111 mg/dLNormSouthwest General Health Centere [facility] Comment on above:Result Comment: PERFORMED BY: [place] [address] PATHOLOGIST FINISHING INSPECTOR CHAMP COATES M.D.Performed By: #### CUU, ADDONUAPLUS, A1C WTH eA, CBC, CMP, LIPID, TSH3 #### [address] Holder StreetAlanine aminotransferase [Enzymatic activity/volume] in Serum or PlasmaOrdered By: Christina Jarvis on 80-87-9232FZO [Catalytic activity/Vol]19 U/LNormal7-52[facility] HospitalComment on above: Performed By: #### CUU, ADDONUAPLUS, A1C WTH eA, CBC, CMP, LIPID, TSH3 #### [facility] [address] [place] [address] USAAlbumin [Mass/volume] in Serum or Plasma by Bromocresol green (BCG) dye binding methoOrdered By: Christina Jarvis on 00-06-9950Wbuzswd BCG dye [Mass/Vol]4.2 g/dL3.5-5.7FPeoples HospitalAlkaline phosphatase [Enzymatic activity/volume] in Serum or PlasmaOrdered By: Christina Jarvis on 11-26-0244XIK [Catalytic activity/Vol]78 U/GZtwpyw52-417NsssbjlovMercy Health Tiffin HospitalComment on above:Performed By: #### CUU, ADDONUAPLUS, A1C WTH eA, CBC, CMP, LIPID, TSH3 #### [facility] [address] [place] [id number] USAAppearance of UrineOrdered By: Christina Jarvis on 06-10-2025 Appearance (U)ClearNormalClearMercy Health Tiffin HospitalComment on above: Order Comment: Name Collection Type:: Clean-Voided MidstreamPerformed By: #### CUU, ADDONUAPLUS, A1C WTH eA, CBC, CMP, LIPID, TSH3 #### [facility] [address] [place] [address] USAAspartate aminotransferase [Enzymatic activity/volume] in Serum or PlasmaOrdered By: Christina Jarvis on 70-59-6419RLM [Catalytic activity/Vol]21 U/UCaxfhs14-95NrntjzlxvMercy Health Tiffin HospitalComment on above: Performed By: #### CUU, ADDONUAPLUS, A1C WTH eA, CBC, CMP, LIPID, TSH3 #### [facility] [address] [place] [address] USABacteria [Presence] in Urine by AutomatedOrdered By: Christina Jarvis on 55-20-2090Rzdklecb Auto Ql (U)None seen [HPF]None SeenFirelands Regional Medical CenterBasophils [#/volume] in Blood by Automated countOrdered By: Christina Jarvis on 52-73-7351Iedzvkgql (Bld) [#/Vol]0.0 10*3/uLNormal0.0-0.2 [facility] HospitalComment on above:Result Comment: PERFORMED BY: [place] [address] PATHOLOGIST FINISHING INSPECTOR CHAMP COATES M.D.Performed By: #### CUU, ADDONUAPLUS, A1C WTH eA, CBC, CMP, LIPID, TSH3 #### [facility] [address] [place] [address] USABasophils/100 leukocytes in Blood by Automated count Ordered By: Christina Jarvis on 08-63-9124Elwdnbkxn/100 WBC (Bld)0.8 %Normal. [facility] HospitalComment on above:Performed By: #### CUU, ADDONUAPLUS, A1C WTH eA, CBC, CMP, LIPID, TSH3 #### [facility] [address] [place] [address] USABilirubin Test strip Ql (U)Ordered By: Christina Jarvis on 82-67-9658Qhhfuwxol Ql (U)NegativeNegativeMercy Health Tiffin Hospital Bilirubin.total [Mass/volume] in Serum or PlasmaOrdered By: Christina Jarvis on 48-67-6936Mbisohisb [Mass/Vol]0.5 mg/dLNormal0.3-1.0[facility] HospitalComment on above:Performed By: #### CUU, ADDONUAPLUS, A1C WTH eA, CBC, CMP, LIPID, TSH3 #### [facility] [address] [place] [address] USABlood estimated average glucose determination by estimation from glycated hemoglobinOrdered By: Christina Jarvis on 30-01-9540Oxuatgz glucose Estimated from glycated hemoglobin (Bld) [Mass/Vol]111 mg/dLMercy Health Tiffin HospitalCalcium [Mass/volume] in Serum or PlasmaOrdered By: Christina Jarvis on 36-80-9789Elkools [Mass/Vol]9.9 mg/dLNormal8.6-10.3FPeoples HospitalComment on above:Performed By: #### CUU, ADDONUAPLUS, A1C WTH eA, CBC, CMP, LIPID, TSH3 #### [facility] [address] [place] [address] USACarbon dioxide, total [Moles/volume] in Serum or Plasma Ordered By: Christina Jarvis on 41-96-7315DU9 [Moles/Vol]28.6 mmol/AGsrtpu37.0-31.0 [facility] HospitalComment on above:Performed By: #### CUU, ADDONUAPLUS, A1C WTH eA, CBC, CMP, LIPID, TSH3 #### [facility] [address] [place] [id number] USAChloride [Moles/volume] in Serum or PlasmaOrdered By: Christina Jarvis on 09-35-7742Jxuvswgz [Moles/Vol]103 mmol/YCpphkk24-814RvwtefrodMercy Health Tiffin HospitalComment on above:Lipemia is present at a [...] TSH3 #### [facility] [address] [place] [id number] USACholesterol [Mass/volume] in Serum or PlasmaOrdered By: Christina Jarvis on 08-49-3473Fjedsuzooqc [Mass/Vol]158 mg/cVItdwgq591-913CxpuquzsoMercy Health Tiffin HospitalComment on above:Chol less than 200 mg/dl low riskChol 201-239 mg/dl borderline riskChol 240 mg/dl and greater high riskResult Comment: Chol less than 200 mg/dl low risk Chol 201-239 mg/dl borderline risk Chol 240 mg/dl and greater high riskPerformed By: #### CUU, ADDONUAPLUS, A1C WTH eA, CBC, CMP, LIPID, TSH3 #### [facility] [address] [place] [address] USACholesterol in HDL [Mass/volume] in Serum or PlasmaOrdered By: Christina Jarvis on 39-00-5748Mbzljlqysiz in HDL [Mass/Vol]45 mg/gWHuldbe72-55 [facility] HospitalComment on above:HDL CHOL ATP-III CLASSIFICATION Cardiovascular RiskHDL > or equal to 60 mg/dL LOWHDL < 40 mg/dL HIGHResult Comment: HDL CHOL ATP-III CLASSIFICATION Cardiovascular Risk HDL > or equal to 60 mg/dL LOW HDL < 40 mg/dL HIGHPerformed By: #### CUU, ADDONUAPLUS, A1C WTH eA, CBC, CMP, LIPID, TSH3 #### [facility] [address] [place] [address] USACholesterol in LDL Calc [Mass/Vol]Ordered By: Christina Javris on 33-97-9612Bwmlsodboow in LDL [Mass/Vol]80 mg/dL0-100[facility] HospitalComment on above:LDL ATP III CLASSIFICATIONLDL less than 100 mg/dL OptimalLDL 100-129 mg/dL Near or above mwsefxqWTK497-306 mg/dL Borderline highLDL 160-189 mg/dL HighLDL greater than 189 mg/dL Very highCholesterol in VLDL Calc [Mass/Vol]Ordered By: Christina Jarvis on 60-07-1566Zbmwwvdjzuk in VLDL [Mass/Vol]32 mg/dLMercy Health Tiffin HospitalColor of Urine by AutoOrdered By: Christina Jarvis on 10-90-2629Yqqup (U)Light-yellowNormalYellowMercy Health Tiffin HospitalComment on above:Order Comment: Name Collection Type:: Clean-Voided MidstreamPerformed By: #### CUU, ADDONUAPLUS, A1C WTH eA, CBC, CMP, LIPID, TSH3 #### [facility] [address] [place] [address] USAComplete Blood Count Auto Diffon 24-79-8539Mmsv Corpuscular HGB Conc33.1 g/uLRhtstg23.0-35.0The [facility] Physician GroupComment on above:Performed By: #### CUU, ADDONUAPLUS, A1C WTH eA, CBC, CMP, LIPID, TSH3 #### [facility] [address] [place] [address] USANRBC%0.2 /100{WBC}Normal0-0.5The [facility] Comment on above:Performed By: #### CUU, ADDONUAPLUS, A1C WTH eA, CBC, CMP, LIPID, TSH3 #### [place] [address] USAWhite Blood Count4.3 [CFU]/mLNormal3.8-11.6The [facility] Physician GroupComment on above:Performed By: #### CUU, ADDONUAPLUS, A1C WTH eA, CBC, CMP, LIPID, TSH3 #### [place] [address] USAComprehensive Metabolic Panelon 77-01-2092Dsuxfza [Mass/Vol]4.2 g/dLNormal3.5-5.7The [facility] Physician GroupComment on above: Performed By: #### CUU, ADDONUAPLUS, A1C WTH eA, CBC, CMP, LIPID, TSH3 #### [place] [address] USAGFR/1.73 sq M.predicted MDRD (S/P/Bld) [Vol rate/Area] mL/min/{1.73_m2}NormalThe [facility] Physician [facility] HospitalComment on above:Performed By: #### CUU, ADDONUAPLUS, A1C WTH eA, CBC, CMP, LIPID, TSH3 #### [place] [address] USACreatinine [Mass/volume] in Serum or PlasmaOrdered By: Christina Jarvis on 81-52-7647Tlvzzaqlyo [Mass/Vol]0.82 mg/dLNormal0.60-1.20 [facility] HospitalComment on above:Performed By: #### CUU, ADDONUAPLUS, A1C WTH eA, CBC, CMP, LIPID, TSH3 #### [place] [id number] USADipstick and Microscopicon 85-41-2964Cylzillv,UrineNone SeenNormalNone SeenThe [facility] Physician GroupComment on above:Order Comment: Name Collection Type:: Clean-Voided MidstreamPerformed By: #### CUU, ADDONUAPLUS, A1C WTH eA, CBC, CMP, LIPID, TSH3 #### [place] [address] USABilirubin,UrineNegativeNormalNegativeMemorial Regional Hospital South Physician GroupComment on above:Order Comment: Name Collection Type:: Clean- Voided MidstreamPerformed By: #### CUU, ADDONUAPLUS, A1C WTH eA, CBC, CMP, LIPID, TSH3 #### [place] [address] USAGlucose Ql (U)NormalNormalNormalThBonner General Hospital Physician GroupComment on above:Order Comment: Name Collection Type:: Clean-Voided MidstreamPerformed By: #### CUU, ADDONUAPLUS, A1C WTH eA, CBC, CMP, LIPID, TSH3 #### [place] [address] USAHyaline Casts,UrineNoneNormal0-8The [facility] Physician GroupComment on above:Order Comment: Name Collection Type:: Clean-Voided MidstreamPerformed By: #### CUU, ADDONUAPLUS, A1C WTH eA, CBC, CMP, LIPID, TSH3 #### [place] [address] USAMucus,UrineRareNormalThe [facility] Physician GroupComment on above:Order Comment: Name Collection Type:: Clean-Voided MidstreamResult Comment: PERFORMED BY: [place] [address] PATHOLOGIST FINISHING INSPECTOR CHAMP COATES M.D.Performed By: #### CUU, ADDONUAPLUS, A1C WTH eA, CBC, CMP, LIPID, TSH3 #### [place] [address] USANitrite,UrineNegativeNormalNegativeMemorial Regional Hospital South Physician GroupComment on above:Order Comment: Name Collection Type:: Clean-Voided MidstreamPerformed By: #### CUU, ADDONUAPLUS, A1C WTH eA, CBC, CMP, LIPID, TSH3 #### [place] [address] USAOccult Blood,Urine1+NormalNegativeThe [facility] Physician GroupComment on above:Order Comment: Name Collection Type:: Clean-Voided MidstreamResult Comment: PERFORMED BY: [place] [address] PATHOLOGIST FINISHING INSPECTOR CHAMP COATES M.D.Performed By: #### CUU, ADDONUAPLUS, A1C WTH eA, CBC, CMP, LIPID, TSH3 #### [place] [address] USAProtein,UrineNegativeNormalNegativeThe [facility] Physician GroupComment on above:Order Comment: Name Collection Type:: Clean-Voided MidstreamPerformed By: #### CUU, ADDONUAPLUS, A1C WTH eA, CBC, CMP, LIPID, TSH3 #### [place] [address] USARBC,Kayom2-6Bdufch5-0Qry [facility] Physician GroupComment on above:Order Comment: Name Collection Type:: Clean-Voided MidstreamPerformed By: #### CUU, ADDONUAPLUS, A1C WTH eA, CBC, CMP, LIPID, TSH3 #### [place] [address] USASpecificy Union,Urine1.553Kqsyza8.001-1.030The [facility] Physician GroupComment on above:Order Comment: Name Collection Type:: Clean- Voided MidstreamPerformed By: #### CUU, ADDONUAPLUS, A1C WTH eA, CBC, CMP, LIPID, TSH3 #### [place] [address] USASquamous Epithelial Cell,Nsdkj7-5Posmqe0-2Zyg [facility] Physician GroupComment on above:Order Comment: Name Collection Type:: Clean- Voided MidstreamPerformed By: #### CUU, ADDONUAPLUS, A1C WTH eA, CBC, CMP, LIPID, TSH3 #### [facility] [address] [place] [address] USAUrobilinogen,UrineNormalNormalNormalThe [facility] Physician GroupComment on above:Order Comment: Name Collection Type:: Clean- Voided MidstreamPerformed By: #### CUU, ADDONUAPLUS, A1C WTH eA, CBC, CMP, LIPID, TSH3 #### [facility] [address] [place] [address] USAWBC,Oetgu0-4Zychzm1-4Jyq [facility] Physician GroupComment on above:Order Comment: Name Collection Type:: Clean-Voided MidstreamPerformed By: #### CUU, ADDONUAPLUS, A1C WTH eA, CBC, CMP, LIPID, TSH3 #### [facility] [facility] [address] [place] [address] USAEosinophils [#/volume] in Blood by Automated countOrdered By: Christina Jarvis on 91-91-5935Gyshhvckjwi (Bld) [#/Vol]0.1 10*3/uLNormal0.0-0.45 [facility] HospitalComment on above:Performed By: #### CUU, ADDONUAPLUS, A1C WTH eA, CBC, CMP, LIPID, TSH3 #### [place] [address] USAEosinophils/100 leukocytes in Blood by Automated count Ordered By: Christina Jarvis on 02-00-2899Eeoxjhwgwzf/100 WBC (Bld)3.1 %Normal. [facility]iffin HospitalComment on above:Performed By: #### CUU, ADDONUAPLUS, A1C WTH eA, CBC, CMP, LIPID, TSH3 #### [facility] [address] [place] [address] USAEpithelial cells.squamous [#/area] in Urine sediment by Automated countOrdered By: Christina Jarvis on 80-25-1668Apymlsqrrv cells.squamous Auto (Urine sed) [#/Area]1-2 [HPF]0-2FPeoples Hospital Erythrocyte distribution width [Ratio] by Automated countOrdered By: Christina Jarvis on 02-94-1669Rpghzscsezb distribution width (RBC) [Ratio]15.1 %Normal 11.9-15.3FPeoples HospitalComment on above:Performed By: #### CUU, ADDONUAPLUS, A1C WTH eA, CBC, CMP, LIPID, TSH3 #### [facility] [address] [place] [address] USAErythrocytes [#/area] in Urine sediment by Automated count Ordered By: Christina Jarvis on 87-87-7434MSV Auto (Urine sed) [#/Area]5-9 [HPF]High 0-4FPeoples HospitalErythrocytes [#/volume] in Blood by Automated countOrdered By: Christina Jarvis on 86-27-4395IKI (Bld) [#/Vol]4.71 10*6/uLNormal3.60-5.00[facility] HospitalComment on above: Performed By: #### CUU, ADDONUAPLUS, A1C WTH eA, CBC, CMP, LIPID, TSH3 #### [facility] [address] [place] [address] USAGlomerular filtration rate [Volume Rate/Area] in Serum, Plasma or Blood by CreatinineOrdered By: Christina Jarvis on 40-29-2772Zmlycjtxef filtration rate [Volume Rate/Area] in Serum, Plasma or Blood by Creatinine> 60.0 mL/MinMercy Health Tiffin HospitalGlucose [Mass/volume] in Serum or Plasma Ordered By: Christina Jarvis on 15-89-8358Tuukowu [Mass/Vol]105 mg/kCZhin65-859 [facility] HospitalComment on above:ADA recommended reference rangeRandom Glucose [...] TSH3 #### [facility] [address] [place] [id number] USAGlucose [Mass/volume] in Urine by Test stripOrdered By: Christina Jarvis on 05-69-2987Egnhkgy Test strip (U) [Mass/Vol]Normal mg/dLNormal [facility] HospitalHematocrit [Volume Fraction] of Blood by Automated countOrdered By: Christina Jarvis on 66-52-2688Qzfjaivcwm (Bld) [Volume fraction]42.3 %Sufinl75.0-46.4FPeoples HospitalComment on above: Performed By: #### CUU, ADDONUAPLUS, A1C WTH eA, CBC, CMP, LIPID, TSH3 #### [facility] [address] [place] [id number] USAHemoglobin A1c/Hemoglobin.total in BloodOrdered By: Christina Jarvis on 54-79-6357KwR6j (Bld) [Mass fraction]5.5 %Normal4.3-5.6FPeoples HospitalComment on above:Increased risk for diabetes: 5.7 - 6.4diabetes: >6.4glycemic control for adults with diabetes: <7.0Result Comment: Increased risk for diabetes: 5.7 - 6.4 diabetes: >6.4 glycemic control for adults with diabetes: <7.0Performed By: #### CUU, ADDONUAPLUS, A1C WTH eA, CBC, CMP, LIPID, TSH3 #### [facility] [address] [place] [id number] USAHemoglobin Test strip Ql (U)Ordered By: Christina Jarvis on 29-29-7049Celbelogoz Ql (U)1+HighNegativeMercy Health Tiffin Hospital Hemoglobin [Mass/volume] in BloodOrdered By: Christina Jarvis on 06-10-2025 Hemoglobin (Bld) [Mass/Vol]14.0 g/sJRlwuvj64.8-15.4FPeoples HospitalComment on above:Performed By: #### CUU, ADDONUAPLUS, A1C WTH eA, CBC, CMP, LIPID, TSH3 #### [facility] [address] [place] [address] USAHyaline casts [#/area] in Urine sediment by Automated countOrdered By: Christina Jarvis on 79-21-2484Ztzjjab casts Auto (Urine sed) [#/Area]None [LPF]0-8[facility] HospitalKetones [Presence] in Urine by Test stripOrdered By: Christina Jarvis on 89-51-0571Fqpagkk Ql (U)Trace NormalNegDayton Osteopathic HospitalComment on above:Order Comment: Name Collection Type:: Clean-Voided MidstreamPerformed By: #### CUU, ADDONUAPLUS, A1C WTH eA, CBC, CMP, LIPID, TSH3 #### [facility] [address] [place] [id number] USALeukocyte esterase [Presence] in Urine by Test strip Ordered By: Christina Jarvis on 91-15-7139Igffvhjzk esterase Test strip Ql (U) NegativeNormalNegDayton Osteopathic HospitalComment on above:Order Comment: Name Collection Type:: Clean-Voided MidstreamPerformed By: #### CUU, ADDONUAPLUS, A1C WTH eA, CBC, CMP, LIPID, TSH3 #### [facility] [address] [place] [id number] USALeukocytes [#/area] in Urine sediment by Automated count Ordered By: hCristina Jarvis on 57-98-7006MWR Auto (Urine sed) [#/Area]1-2 [HPF]0-4 [facility] HospitalLeukocytes [#/volume] corrected for nucleated erythrocytes in Blood by Automated counOrdered By: Christina Jarvis on 86-84-5668GXU corrected for nucl RBC Auto (Bld) [#/Vol]4.3 10*3/uL3.8-11.6FPeoples HospitalLeukocytes [#/volume] in Blood by Automated countOrdered By: Christina Jarvis on 49-87-5922VWS (Bld) [#/Vol]4.3 10*3/uLNormal3.8-11.6FPeoples HospitalComment on above:Performed By: #### CUU, ADDONUAPLUS, A1C WTH eA, CBC, CMP, LIPID, TSH3 #### [facility] [address] [place] [address] USALipid Panelon 28-93-6135RUW Cholesterol,Kdxqjqiyxy76 mg/dL Normal0-100The [facility] Physician GroupComment on above:Result Comment: LDL ATP III CLASSIFICATION LDL less than 100 mg/dL Optimal LDL 100-129 mg/dL Near or above optimal LDL 130-159 mg/dL Borderline high LDL 160-189 mg/dL High LDL greater than 189 mg/dL Very highPerformed By: #### CUU, ADDONUAPLUS, A1C WTH eA, CBC, CMP, LIPID, TSH3 #### [facility] [address] [place] [id number] USATriglyceride w/Uplfaq028 mg/dLHigh0-149The [facility] Physician GroupComment on above:Result Comment: TRIG ATP III CLASSIFICATION TRIG less than 150 mg/dL Normal TRIG 150-199 mg/dL Borderline high TRIG 200-500 mg/dL High TRIG greater than 500 mg/dL Very high Standard traceable to the Center for Disease Conrtrol and Prevention (CDC) test method.Performed By: #### CUU, ADDONUAPLUS, A1C WTH eA, CBC, CMP, LIPID, TSH3 #### [facility] [address] [place] [id number] USAVLDL DRXOTCSUXWY00 mg/dLNormalThe [facility] Physician [facility] HospitalComment on above:Performed By: #### CUU, ADDONUAPLUS, A1C WTH eA, CBC, CMP, LIPID, TSH3 #### [facility] [address] [place] [phone] USALymphocytes [#/volume] in Blood by Automated countOrdered By: Christina Jarvis on 65-32-0225Jshacpysqtu (Bld) [#/Vol]1.0 10*3/uLNormal1.00-4.8 [facility] HospitalComment on above:Performed By: #### CUU, ADDONUAPLUS, A1C WTH eA, CBC, CMP, LIPID, TSH3 #### [facility] [address] [place] [phone] USALymphocytes/100 leukocytes in Blood by Automated count Ordered By: Christina Jarvis on 96-19-6904Zueulndirni/100 WBC (Bld)23.0 %Normal. [facility] HospitalComment on above:Performed By: #### CUU, ADDONUAPLUS, A1C WTH eA, CBC, CMP, LIPID, TSH3 #### [facility] [address] [Entitic mass] by Automated countOrdered By: Christina Jarvis on 60-54-2464ZXH (RBC) [Entitic mass]29.8 zjHbiooo68.7-34.3FPeoples HospitalComment on above:Performed By: #### CUU, ADDONUAPLUS, A1C WTH eA, CBC, CMP, LIPID, TSH3 #### [facility] [address] Auto (RBC) [Mass/Vol]Ordered By: Christina Jarvis on 24-31-5211GGEO (RBC) [Mass/Vol]33.1 g/dL32.0-35.0[facility] CenterV [Entitic volume] by Automated countOrdered By: Christina Jarvis on 27-24-9159PGT (RBC) [Entitic vol]89.9 xXLdxcpa64-101WpvgjhwmhMercy Health Tiffin HospitalComment on above:Performed By: #### CUU, ADDONUAPLUS, A1C WTH eA, CBC, CMP, LIPID, TSH3 #### [facility] [address] [place] [address] USAMonocytes [#/volume] in Blood by Automated countOrdered By: Christina Jarvis on 37-68-4163Naqwhamab (Bld) [#/Vol]0.3 10*3/uLNormal0.0-0.8 [facility] HospitalComment on above:Performed By: #### CUU, ADDONUAPLUS, A1C WTH eA, CBC, CMP, LIPID, TSH3 #### [facility] [address] [place] [address] USAMonocytes/100 leukocytes in Blood by Automated count Ordered By: Christina Jarvis on 17-02-3651Lijkutfce/100 WBC (Bld)7.6 %Normal. [facility] HospitalComment on above:Performed By: #### CUU, ADDONUAPLUS, A1C WTH eA, CBC, CMP, LIPID, TSH3 #### [facility] [address] [place] [phone] USAMucus [Presence] in Urine by AutomatedOrdered By: Christina Jarvis on 89-49-5921Ojrxc Auto Ql (U)Rare [LPF][facility] Neutrophils [#/volume] in Blood by Automated countOrdered By: Christina Jarvis on 57-82-4073Gdjrgdtujcl (Bld) [#/Vol]2.8 10*3/uLNormal1.8-7.7FPeoples HospitalComment on above:Performed By: #### CUU, ADDONUAPLUS, A1C WTH eA, CBC, CMP, LIPID, TSH3 #### [facility] [address] [place] [phone] USANeutrophils/100 leukocytes in Blood by Automated count Ordered By: Christina Jarvis on 49-73-3663Vqdgimreijm/100 WBC (Bld)65.5 %Normal. [facility] HospitalComment on above:Performed By: #### CUU, ADDONUAPLUS, A1C WTH eA, CBC, CMP, LIPID, TSH3 #### [facility] [address] [place] [address] USANitrite Test strip Ql (U)Ordered By: Christina Jarvis on 71-19-1778Jxnhhmp Ql (U)NegativeNegativeMercy Health Tiffin HospitalNo Panel InformationOrdered By: Christina Jarvis on 02-23-0209Hdbipqif Creatinine Clearance (ChemN/AFPeoples HospitalNucleated erythrocytes [Presence] in Blood by Automated countOrdered By: Christina Jarvis on 06-10-2025 Nucleated RBC Auto Ql (Bld)0.2 /100{WBC}0-0.5FPeoples Hospital Platelet mean volume [Entitic volume] in Blood by Automated countOrdered By: Christina Jarvis on 04-44-8078Rmkwaqdf mean volume (Bld) [Entitic vol]8.1 fLNormal 6.3-10.7FPeoples HospitalComment on above:Performed By: #### CUU, ADDONUAPLUS, A1C WTH eA, CBC, CMP, LIPID, TSH3 #### [facility] [address] [place] [address] USAPlatelets [#/volume] in Blood by Automated countOrdered By: Christina Jarvis on 92-98-7143Mraxjsbre (Bld) [#/Vol]323 10*3/bHFfyyks886-977 [facility] HospitalComment on above:Performed By: #### CUU, ADDONUAPLUS, A1C WTH eA, CBC, CMP, LIPID, TSH3 #### [facility] [address] [place] [address] USAPotassium [Moles/volume] in Serum or PlasmaOrdered By: Christina Jarvis on 33-28-6677Srkaufsim [Moles/Vol]4.1 mmol/LNormal3.5-5.1FPeoples HospitalComment on above:Lipemia is present at a level that could interfere with the result.Hemolysis is present at a level that could interfere with the result.Result Comment: Lipemia is present at a level that could interfere with the result. Hemolysis is present at a level that could interfere with the result.Performed By: #### CUU, ADDONUAPLUS, A1C WTH eA, CBC, CMP, LIPID, TSH3 #### [facility] [address] [place] [address] USAProtein Test strip (U) [Mass/Vol]Ordered By: Christina Jarvis on 42-93-2386Tczmbun (U) [Mass/Vol]NegativeNegativeMercy Health Tiffin HospitalProtein [Mass/volume] in Serum or PlasmaOrdered By: Christina Jarvis on 36-99-7257Ftyjxqf [Mass/Vol]6.8 g/dLNormal6.4-8.9[facility] HospitalComment on above:Performed By: #### CUU, ADDONUAPLUS, A1C WTH eA, CBC, CMP, LIPID, TSH3 #### [facility] [address] [place] [address] USASerum globulin measurement by calculation (mass/volume) Ordered By: Christina Jarvis on 67-68-1686Yarvqmsj (S) [Mass/Vol]2.6 g/dLNormal [facility] HospitalComment on above:Performed By: #### CUU, ADDONUAPLUS, A1C WTH eA, CBC, CMP, LIPID, TSH3 #### [facility] [address] [place] [id number] USASerum or plasma albumin/globulin mass ratioOrdered By: Christina Jarvis on 02-00-7033Aosiesj/Globulin [Mass ratio]1.6 {ratio}Normal [facility] HospitalComment on above:Performed By: #### CUU, ADDONUAPLUS, A1C WTH eA, CBC, CMP, LIPID, TSH3 #### [facility] [address] [place] [phone] USASerum or plasma anion gap determinationOrdered By: Christina Jarvis on 17-52-3191Ovojl gap [Moles/Vol]11.5 mmol/LNormal6.0-15.0[facility] HospitalComment on above:Performed By: #### CUU, ADDONUAPLUS, A1C WTH eA, CBC, CMP, LIPID, TSH3 #### [place] [address] USASerum or plasma total cholesterol/high density lipoprotein (HDL) cholesterol mass ratOrdered By: Christina Jarvis on 06-10-2025 Cholesterol.total/Cholesterol in HDL [Mass ratio]3.5 {ratio}Normal<5.0[facility] HospitalComment on above:Performed By: #### CUU, ADDONUAPLUS, A1C WTH eA, CBC, CMP, LIPID, TSH3 #### [place] [id number] USASodium [Moles/volume] in Serum or PlasmaOrdered By: Christina Jarvis on 78-68-8782Calali [Moles/Vol]139 mmol/CFfllri114-816IyvxqvwloMercy Health Tiffin HospitalComment on above:Lipemia is present at a level that could interfere with the result.Hemolysis is present at a level that could interfere with the result.Result Comment: Lipemia is present at a level that could interfere with the result. Hemolysis is present at a level that could interfere with the result.Performed By: #### CUU, ADDONUAPLUS, A1C WTH eA, CBC, CMP, LIPID, TSH3 #### [place] [id number] USASpecific gravity Test strip (U) [Rel density]Ordered By: Christina Jarvis on 05-40-6914Fwkgpzqv gravity (U) [Rel density]1.0141.001-1.030 [facility]in HospitalThyrotropin [Units/volume] in Serum or Plasma Ordered By: Christina Jarvis on 77-67-9585FUZ Qn2.22 m[IU]/LNormal0.45-5.33[facility] HospitalComment on above:Result Comment: PERFORMED BY: [place] [address] PATHOLOGIST FINISHING INSPECTOR CHAMP COATES M.D.Performed By: #### MARCUS TERAN, A1C WTH eA, CBC, CMP, LIPID, TSH3 #### [facility] [address] [place] [address] USATriglyceride [Mass/volume] in Serum or PlasmaOrdered By: Christina Jarvis on 76-22-2988Omhzfbkxjcxh [Mass/Vol]163 mg/dLHigh0-149[facility] HospitalComment on above:TRIG ATP III CLASSIFICATIONTRIG less than 150 mg/dL NormalTRIG 150-199 mg/dL Borderline highTRIG 200-500 mg/dL High TRIG greater than 500 mg/dL Very highStandard traceable to the Center for Disease Conrtrol and Prevention (CDC) test method.Urea nitrogen [Mass/volume] in Serum or PlasmaOrdered By: Christina Jarvis on 43-83-4797Arxt nitrogen [Mass/Vol]15 mg/dLNormal7-25[facility] HospitalComment on above:Performed By: #### BOB TERANONJARRETPLUS, A1C WTH eA, CBC, CMP, LIPID, TSH3 #### [facility] [address] [place] [address] USAUrine Cultureon 37-04-1795Gacpofvw identified Cx Nom (U) >100,000 colonies/ml mixed bacterial skin contaminants 2 Days PERFORMED BY: [place] [address] PATHOLOGIST FINISHING INSPECTOR CHAMP COATES M.D.NormalThe Atrium Health Mercy Physician GroupComment on above: Performed By: #### ANSONU, ADDONUAPLUS, A1C [facility] eA, CBC, CMP, LIPID, TSH3 #### [facility] [address] [place] [address] USAUrobilinogen Test strip (U) [Mass/Vol]Ordered By: Christina Jarvis on 73-66-6413Hbivkrpezfxw (U) [Mass/Vol]Normal mg/dLNormalMercy Health Tiffin HospitalpH of Urine by Test stripOrdered By: Christina Jarvis on 12-59-9700gX (U)6.0 [pH]Normal5.0-9.0[facility] HospitalComment on above:Order Comment: Name Collection Type:: Clean-Voided MidstreamPerformed By: #### CUU, ADDONUAPLUS, A1C [facility] eA, CBC, CMP, LIPID, TSH3 #### [facility] [address] [place] [id number] USAAlanine aminotransferase [Enzymatic activity/volume] in Serum or PlasmaOrdered By: Christina Jarvis on 76-87-1008FCT [Catalytic activity/Vol]25 U/L7-52[facility] HospitalAlbumin [Mass/volume] in Serum or Plasma by Bromocresol green (BCG) dye binding methoOrdered By: Christina Jarvis on 94-58-4265Ejbrmgv BCG dye [Mass/Vol]4.1 g/dL3.5-5.7FPeoples HospitalAlkaline phosphatase [Enzymatic activity/volume] in Serum or PlasmaOrdered By: Christina Jarvis on 88-22-8121YXI [Catalytic activity/Vol]84 U/L 34-104Mer[facility] HospitalAspartate aminotransferase [Enzymatic activity/volume] in Serum or PlasmaOrdered By: Christina Jarvis on 39-44-3166EIU [Catalytic activity/Vol]25 U/T47-66ZqqueyehiMercy Health Tiffin HospitalBacteria [Presence] in Urine by AutomatedOrdered By: Christina Jarvis on 95-25-5340Iuwdmpyz Auto Ql (U)None seen [HPF]None SeenMercy Health Tiffin HospitalBasophils Auto (Bld) [#/Vol]Ordered By: Christina Jarvis on 04-04-1896Pfwswkyyp (Bld) [#/Vol] 0.0 10*3/uL0.0-0.2FPeoples HospitalBasophils/100 WBC Auto (Bld) Ordered By: Christina Jarvis on 14-59-4842Dkygqfkeu/100 WBC (Bld)1.0 %.[facility] HospitalBilirubin Test strip Ql (U)Ordered By: Christina Jarvis on 25-36-3992Jdxfytxtl Ql (U)NegativeNegativeMercy Health Tiffin Hospital Bilirubin.total [Mass/volume] in Serum or PlasmaOrdered By: Christina Jarvis on 87-36-9714Uxobeiatu [Mass/Vol]0.5 mg/dL0.3-1.0[facility] Calcium [Mass/volume] in Serum or PlasmaOrdered By: Christina Jarvis on 05-24-2024 Calcium [Mass/Vol]9.9 mg/dL8.6-10.3FPeoples HospitalCarbon dioxide, total [Moles/volume] in Serum or PlasmaOrdered By: Christina Jarvis on 71-52-3701ST5 [Moles/Vol]29.1 mmol/L21.0-31.0[facility] Chloride [Moles/volume] in Serum or PlasmaOrdered By: Christina Jarvis on 05-24-2024 Chloride [Moles/Vol]104 mmol/W65-041OmndvknleMercy Health Tiffin HospitalCholesterol [Mass/volume] in Serum or PlasmaOrdered By: Christina Jarvis on 05-24-2024 Cholesterol [Mass/Vol]175 mg/jX955-353FckitxxblMercy Health Tiffin HospitalComment on above:Chol less than 200 mg/dl low riskChol 201-239 mg/dl borderline riskChol 240 mg/dl and greater high riskCholesterol in LDL Calc [Mass/Vol]Ordered By: Christina Jarvis on 79-73-3026Srfgbcdfkmu in LDL [Mass/Vol]90 mg/dL0-100[facility] HospitalComment on above:LDL ATP III CLASSIFICATIONLDL less than 100 mg/dL OptimalLDL 100-129 mg/dL Near or above bybjojsLIG254-514 mg/dL Borderline highLDL 160-189 mg/dL HighLDL greater than 189 mg/dL Very high Cholesterol in VLDL Calc [Mass/Vol]Ordered By: Christina Jarvis on 05-24-2024 Cholesterol in VLDL [Mass/Vol]36 mg/dLMercy Health Tiffin HospitalColor Auto (U)Ordered By: Christina Jarvis on 16-89-5110Gcrsl (U)Light-yellowYellow [facility] HospitalCreatinine [Mass/volume] in Serum or Plasma Ordered By: Christina Jarvis on 98-21-9593Rdulfqdxcj [Mass/Vol]0.85 mg/dL0.60-1.20 [facility] HospitalEosinophils Auto (Bld) [#/Vol]Ordered By: Christina Jarvis on 29-60-3732Zuonmpospik (Bld) [#/Vol]0.2 10*3/uL0.0-0.45[facility] HospitalEosinophils/100 WBC Auto (Bld)Ordered By: Christina Jarvis on 28-71-9019Qfhqbsdfiuj/100 WBC (Bld)3.6 %.[facility] Epithelial cells.squamous [#/area] in Urine sediment by Automated countOrdered By: Christina Jarvis on 22-12-0421Tevvwusaab cells.squamous Auto (Urine sed) [#/Area]1-2 [HPF]0-2FPeoples HospitalErythrocyte distribution width Auto (RBC) [Ratio]Ordered By: Christina Jarvis on 11-59-4315Iitsnwrgeqy distribution width (RBC) [Ratio]14.7 %11.9-15.3FPeoples Hospital Erythrocytes [#/area] in Urine sediment by Automated countOrdered By: Christina Jarvis on 45-29-8203PVQ Auto (Urine sed) [#/Area]3-4 [HPF]0-4FPeoples HospitalGlobulin Calc (S) [Mass/Vol]Ordered By: Christina Jarvis on 05-24-2024 Globulin (S) [Mass/Vol]2.3 g/dLMercy Health Tiffin HospitalGlucose [Mass/volume] in Serum or PlasmaOrdered By: Christina Jarvis on 12-34-1919Ilzjapd [Mass/Vol]97 mg/dA33-771JiedtbbheMercy Health Tiffin HospitalComment on above:ADA recommended reference rangeRandom Glucose Reference Range is dependent on time and content of last meal. Glucose of more than 200 mg/dL in a nonstressed, ambulatory subject supports the diagnosisof Diabetes Mellitus.Glucose [Mass/volume] in Urine by Test stripOrdered By: Christina Jarvis on 05-24-2024 Glucose Test strip (U) [Mass/Vol]Normal mg/dLNormalMercy Health Tiffin HospitalGlucose mean value [Mass/volume] in Blood Estimated from glycated hemoglobinOrdered By: Christina Jarvis on 61-19-9836Gkfskdo glucose Estimated from glycated hemoglobin (Bld) [Mass/Vol]126 mg/dLMercy Health Tiffin Hospital Hematocrit Auto (Bld) [Volume fraction]Ordered By: Christina Jarvis on 05-24-2024 Hematocrit (Bld) [Volume fraction]41.0 %34.0-46.4FPeoples HospitalHemoglobin A1c percentageOrdered By: Christina Jarvis on 35-43-7849ZzA5v (Bld) [Mass fraction]6.0 %High4.3-5.6FPeoples HospitalComment on above:Increased risk for diabetes: 5.7 - 6.4diabetes: >6.4glycemic control for adults with diabetes: <7.0Hemoglobin Test strip Ql (U)Ordered By: Christina Jarvis on 08-21-0585Gpyxkyweuy Ql (U)1+HighNegativeMercy Health Tiffin HospitalHemoglobin [Mass/volume] in BloodOrdered By: Christina Jarvis on 05-24-2024 Hemoglobin (Bld) [Mass/Vol]13.6 g/dL11.8-15.4FPeoples Hospital Hyaline casts [#/area] in Urine sediment by Automated countOrdered By: Christina Jarvis on 94-88-4793Zmhmixa casts Auto (Urine sed) [#/Area]None [LPF]0-8 [facility] HospitalKetones Test strip Ql (U)Ordered By: Christina Jarvis on 03-92-2715Qbgvbzo Ql (U)NegativeNegativeMercy Health Tiffin HospitalLeukocyte esterase [Presence] in Urine by Test stripOrdered By: Christina Jarvis on 69-98-7026Zotfjrdtk esterase Test strip Ql (U)NegativeNegative [facility] HospitalLeukocytes [#/area] in Urine sediment by Automated countOrdered By: Christina Jarvis on 56-26-4518PLD Auto (Urine sed) [#/Area]1-2 [HPF]0-4FPeoples HospitalLeukocytes [#/volume] corrected for nucleated erythrocytes in Blood by Automated counOrdered By: Christina Jarvis on 52-50-0464FDG corrected for nucl RBC Auto (Bld) [#/Vol]4.3 10*3/uL 3.8-11.6FPeoples HospitalLymphocytes Auto (Bld) [#/Vol]Ordered By: Christina Jarvis on 97-84-1238Essopdkwtin (Bld) [#/Vol]1.2 10*3/uL1.00-4.8 [facility] HospitalLymphocytes/100 WBC Auto (Bld)Ordered By: Christina Jarvis on 16-33-3670Wekcqhywryl/100 WBC (Bld)27.5 %.[facility] CenterH Auto (RBC) [Entitic mass]Ordered By: Christina Jarvis on 85-71-9045WLR (RBC) [Entitic mass]29.4 pg24.7-34.3FPeoples HospitalMCHC Auto (RBC) [Mass/Vol]Ordered By: Christina Jarvis on 89-06-7921SVHN (RBC) [Mass/Vol]33.2 g/dL32.0-35.0[facility] HospitalMCV Auto (RBC) [Entitic vol] Ordered By: Christina Jarvis on 69-56-6119WYG (RBC) [Entitic vol]88.5 fT08-623 [facility] HospitalMonocytes Auto (Bld) [#/Vol]Ordered By: Christina Jarvis on 55-38-9626Kanutjvab (Bld) [#/Vol]0.4 10*3/uL0.0-0.8[facility] HospitalMonocytes/100 WBC Auto (Bld)Ordered By: Christina Jarvis on 05-24-2024 Monocytes/100 WBC (Bld)8.6 %.[facility] HospitalMucus [Presence] in Urine by AutomatedOrdered By: Christina Jarvis on 12-16-1140Gxcad Auto Ql (U)Rare [LPF][facility] HospitalNeutrophils Auto (Bld) [#/Vol]Ordered By: Christina Jarvis on 00-52-0452Mfuytlzzjto (Bld) [#/Vol]2.5 10*3/uL1.8-7.7FPeoples HospitalNeutrophils/100 WBC Auto (Bld)Ordered By: Christina Jarvis on 08-34-8814Hinjccppzxw/100 WBC (Bld)59.3 %.[facility] Nitrite Test strip Ql (U)Ordered By: Christina Jarvis on 00-26-6833Yuntyov Ql (U) NegativeNegativeMercy Health Tiffin HospitalNo Panel InformationOrdered By: Christina Jarvis on 79-45-7219Ilfsqaagm GFR (CKD-EPI)> 60.0 mL/MinMercy Health Tiffin HospitalPharmacy Creatinine Clearance (ChemN/AFPeoples HospitalNucleated erythrocytes [Presence] in Blood by Automated count Ordered By: Christina Jarvis on 14-17-1051Mowyvvvji RBC Auto Ql (Bld)0.1 /100{WBC} 0-0.5FPeoples HospitalPlatelet mean volume Auto (Bld) [Entitic vol]Ordered By: Christina Jarvis on 56-58-3353Xcpsemkh mean volume (Bld) [Entitic vol]7.9 fL6.3-10.7FPeoples HospitalPlatelets Auto (Bld) [#/Vol] Ordered By: Christina Jarvis on 81-61-3562Ujzurjzcf (Bld) [#/Vol]325 10*3/qI894-604 [facility] HospitalPotassium [Moles/volume] in Serum or Plasma Ordered By: Christina Jarvis on 30-40-4289Bsjbmxuxq [Moles/Vol]4.2 mmol/L3.5-5.1 [facility] HospitalProtein Test strip (U) [Mass/Vol]Ordered By: Christina Jarvis on 85-81-5502Kabbhqh (U) [Mass/Vol]NegativeNegativeMercy Health Tiffin HospitalProtein [Mass/volume] in Serum or PlasmaOrdered By: Christina Jarvis on 46-46-1401Iwfkggf [Mass/Vol]6.4 g/dL6.4-8.9[facility] HospitalRBC Auto (Bld) [#/Vol]Ordered By: Christina Jarvis on 51-67-0338BTW (Bld) [#/Vol]4.63 10*6/uL3.60-5.00[facility] Centererum or plasma albumin/globulin mass ratioOrdered By: Christina Jarvis on 05-24-2024 Albumin/Globulin [Mass ratio]1.8 {ratio}[facility] Centererum or plasma anion gap determinationOrdered By: Christina Jarvis on 52-58-5662Wrayu gap [Moles/Vol]10.1 mmol/L6.0-15.0[facility] Centererum or plasma high density lipoprotein (HDL) cholesterol measurementOrdered By: Christina Jarvis on 97-13-2486Nbuyjuktfzp in HDL [Mass/Vol]49 mg/tE27-16YmmswwfzhMercy Health Tiffin HospitalComment on above:HDL CHOL ATP-III CLASSIFICATION Cardiovascular RiskHDL > or equal to 60 mg/dL LOWHDL < 40 mg/dL HIGHSerum or plasma total cholesterol/high density lipoprotein (HDL) cholesterol mass ratOrdered By: Christina Jarvis on 75-91-2049Tjfqpqnwmid.total/Cholesterol in HDL [Mass ratio]3.6 {ratio}<5.0[facility] Centerodium [Moles/volume] in Serum or PlasmaOrdered By: Christina Jarvis on 08-02-1085Bjfzhr [Moles/Vol]139 mmol/J576-921 [facility] Medical Centerpecific gravity Test strip (U) [Rel density] Ordered By: Christina Jarvis on 10-19-4733Fjkcreha gravity (U) [Rel density]1.016 1.001-1.030[facility] HospitalThyrotropin [Units/volume] in Serum or PlasmaOrdered By: Christina Jarvis on 98-80-4878GTK Qn2.10 m[IU]/L0.45-5.33 [facility] HospitalTriglyceride [Mass/volume] in Serum or Plasma Ordered By: Christina Jarvis on 92-74-3474Ddtlfdownwpl [Mass/Vol]182 mg/dLHigh0-149 [facility] HospitalComment on above:TRIG ATP III CLASSIFICATIONTRIG less than 150 mg/dL NormalTRIG 150-199 mg/dL Borderline highTRIG 200-500 mg/dL High TRIG greater than 500 mg/dL Very highStandard traceable to the Center for Disease Conrtrol and Prevention (CDC) test method. Urea nitrogen [Mass/volume] in Serum or PlasmaOrdered By: Christina Jarvis on 32-35-2330Ngzc nitrogen [Mass/Vol]12 mg/dL7-25[facility] Urine appearanceOrdered By: Christina Jarvis on 25-17-3360Clafhnlwhl (U)ClearClear [facility] HospitalUrine culture routineOrdered By: Christina Jarvis on 81-40-0444Ajmoqoko identified Cx Nom (U)2 DaysMercy Health Tiffin HospitalUrobilinogen Test strip (U) [Mass/Vol]Ordered By: Christina Jarvis on 88-48-7352Qojgdwwzyngd (U) [Mass/Vol]Normal mg/dLNormalMercy Health Tiffin HospitalWBC Auto (Bld) [#/Vol]Ordered By: Christina Jarvis on 85-98-0653MRT (Bld) [#/Vol]4.3 10*3/uL3.8-11.6FPeoples HospitalpH Test strip (U)Ordered By: Christina Jarvis on 49-69-1206bR (U)6.5 [pH]5.0-9.0[facility] HospitalAlanine aminotransferase [Enzymatic activity/volume] in Serum or PlasmaOrdered By: Christina Jarvis on 36-52-9967QAW [Catalytic activity/Vol]20 U/L 7-52[facility] HospitalAlbumin [Mass/volume] in Serum or Plasma by Bromocresol green (BCG) dye binding methoOrdered By: Christina Jarvis on 02-04-2023 Albumin BCG dye [Mass/Vol]3.9 g/dL3.5-5.7FPeoples Hospital Alkaline phosphatase [Enzymatic activity/volume] in Serum or PlasmaOrdered By: Christina Jarvis on 12-43-6985HMJ [Catalytic activity/Vol]84 U/L92-320WzbpmywjbMercy Health Tiffin HospitalAspartate aminotransferase [Enzymatic activity/volume] in Serum or PlasmaOrdered By: Christnia Jarvis on 59-00-0452UVK [Catalytic activity/Vol]20 U/U34-45TczqjtotwMercy Health Tiffin HospitalAutomated erythrocytes count in urine sediment (number/area)Ordered By: Christina Jarvis on 01-76-2482FQA Auto (Urine sed) [#/Area]3-4 [HPF]0-4FPeoples HospitalAutomated leukocytes count in urine sediment (number/area)Ordered By: Christina Jarvis on 33-90-9952EON Auto (Urine sed) [#/Area]None seen [HPF]0-4FPeoples HospitalBasophils Auto (Bld) [#/Vol]Ordered By: Christina Jarvis on 02-04-2023 Basophils (Bld) [#/Vol]0.0 10*3/uL0.0-0.2FPeoples Hospital Basophils/100 WBC Auto (Bld)Ordered By: Christina Jarvis on 11-19-2125Facaheekw/100 WBC (Bld)1.1 %.[facility] HospitalBilirubin Test strip Ql (U) Ordered By: Christina Jarvis on 67-58-0905Prgaruyfg Ql (U)NegativeNegativeMercy Health Tiffin HospitalBilirubin.total [Mass/volume] in Serum or PlasmaOrdered By: Chritsina Jarvis on 41-96-9508Ljyjceqxq [Mass/Vol]0.5 mg/dL0.3-1.0[facility] HospitalCalcium [Mass/volume] in Serum or PlasmaOrdered By: Christina Jarvis on 96-13-5053Nvjcjnm [Mass/Vol]9.4 mg/dL8.6-10.3FPeoples HospitalCarbon dioxide, total [Moles/volume] in Serum or PlasmaOrdered By: Christina Jarvis on 08-78-2070CI9 [Moles/Vol]30.3 mmol/L21.0-31.0[facility] HospitalChloride [Moles/volume] in Serum or PlasmaOrdered By: Christina Jarvis on 30-56-3515Sbaabyes [Moles/Vol]104 mmol/G77-575XhqgkiqxyMercy Health Tiffin HospitalCholesterol [Mass/volume] in Serum or PlasmaOrdered By: Christina Jarvis on 59-15-9792Cyocolslktv [Mass/Vol]173 mg/rD867-952HmjztoagcMercy Health Tiffin HospitalComment on above:Chol less than 200 mg/dl low riskChol 201-239 mg/dl borderline riskChol 240 mg/dl and greater high riskCholesterol in LDL Calc [Mass/Vol]Ordered By: Christina Jarvis on 12-82-9159Wvcmlzwiizn in LDL [Mass/Vol]89 mg/dL0-100[facility] HospitalComment on above:LDL ATP III CLASSIFICATIONLDL less than 100 mg/dL OptimalLDL 100-129 mg/dL Near or above ivxujojTYV546-571 mg/dL Borderline highLDL 160-189 mg/dL HighLDL greater than 189 mg/dL Very highCholesterol in VLDL Calc [Mass/Vol]Ordered By: Christina Jarvis on 64-54-4363Nxswcdoahfj in VLDL [Mass/Vol]37 mg/dLMercy Health Tiffin HospitalColor Auto (U)Ordered By: Christina Jarvis on 03-37-6882Wtsjq (U)YellowYellow [facility] HospitalCreatinine [Mass/volume] in Serum or Plasma Ordered By: Christina Jarvis on 41-30-3344Uxeixtxtkc [Mass/Vol]0.84 mg/dL0.60-1.20 [facility] HospitalEosinophils Auto (Bld) [#/Vol]Ordered By: Christina Jarvis on 00-96-4637Vtjphrmffoy (Bld) [#/Vol]0.2 10*3/uL0.0-0.45[facility] HospitalEosinophils/100 WBC Auto (Bld)Ordered By: Christina Jarvis on 98-43-9213Gbixnnzmsny/100 WBC (Bld)5.4 %.[facility] Erythrocyte distribution width Auto (RBC) [Ratio]Ordered By: Christina Jarvis on 19-08-2474Ydfinoiyjfq distribution width (RBC) [Ratio]14.9 %11.9-15.3FPeoples HospitalGlobulin Calc (S) [Mass/Vol]Ordered By: Christina Jarvis on 64-17-3248Pmrjwcbl (S) [Mass/Vol]2.6 g/dLMercy Health Tiffin Hospital Glucose [Mass/volume] in Serum or PlasmaOrdered By: Christina Jarvis on 02-04-2023 Glucose [Mass/Vol]102 mg/vH37-195LdpuapbdxMercy Health Tiffin HospitalComment on above:ADA recommended reference rangeRandom Glucose Reference Range is dependent on time and content of last meal. Glucose of more than 200 mg/dL in a nonstressed, ambulatory subject supports the diagnosisof Diabetes Mellitus. Hematocrit Auto (Bld) [Volume fraction]Ordered By: Christina Jarvis on 02-04-2023 Hematocrit (Bld) [Volume fraction]39.8 %34.0-46.4FPeoples HospitalHemoglobin [Mass/volume] in BloodOrdered By: Christina Jarvis on 02-04-2023 Hemoglobin (Bld) [Mass/Vol]13.1 g/dL11.8-15.4FPeoples Hospital Ketones Auto test strip (U) [Mass/Vol]Ordered By: Christina Jarvis on 02-04-2023 Ketones (U) [Mass/Vol]NegativeNegativeMercy Health Tiffin Hospital Laboratory - UrinalysisOrdered By: Christina Jarvis on 02-89-1546Zkhhdkc casts LM Ql (Urine sed)None seen [LPF]0-8[facility] HospitalLeukocytes [#/volume] corrected for nucleated erythrocytes in Blood by Automated coun Ordered By: Christina Jarvis on 14-01-6444QNU corrected for nucl RBC Auto (Bld) [#/Vol]4.1 10*3/uL3.8-11.6FPeoples HospitalLymphocytes Auto (Bld) [#/Vol]Ordered By: Christina Jarvis on 99-84-2409Ehrvkfbobar (Bld) [#/Vol]1.0 10*3/uL1.00-4.8[facility] HospitalLymphocytes/100 WBC Auto (Bld) Ordered By: Christina Jarvis on 91-50-6972Yqrtbsflunk/100 WBC (Bld)25.3 %.[facility] CenterH Auto (RBC) [Entitic mass]Ordered By: Christina Jarvis on 00-45-1947LGW (RBC) [Entitic mass]29.3 pg24.7-34.3FPeoples HospitalMCHC Auto (RBC) [Mass/Vol]Ordered By: Christina Jarvis on 49-52-2462VEFQ (RBC) [Mass/Vol]32.9 g/dL32.0-35.0[facility] HospitalMCV Auto (RBC) [Entitic vol]Ordered By: Christina Jarvis on 78-12-8953QVJ (RBC) [Entitic vol]89.2 xE28-209JewdtlujiMercy Health Tiffin HospitalMonocytes Auto (Bld) [#/Vol]Ordered By: Christina Jarvis on 56-75-4833Vozuwvmld (Bld) [#/Vol]0.4 10*3/uL0.0-0.8[facility] HospitalMonocytes/100 WBC Auto (Bld)Ordered By: Christina Jarvis on 40-66-7293Ptrfondgg/100 WBC (Bld)9.8 %.[facility] Neutrophils Auto (Bld) [#/Vol]Ordered By: Christina Jarvis on 44-05-9134Sihjfcyqwvb (Bld) [#/Vol]2.4 10*3/uL1.8-7.7FPeoples HospitalNeutrophils/100 WBC Auto (Bld)Ordered By: Christina Jarvis on 55-35-7961Zzbubijsmts/100 WBC (Bld) 58.4 %.[facility] HospitalNitrite Test strip Ql (U)Ordered By: Christina Jarvis on 76-68-4351Qvhsouw Ql (U)NegativeNegativeMercy Health Tiffin HospitalNo Panel InformationOrdered By: Christina Jarvis on 02-04-2023 Estimated GFR (CKD-EPI)> 60.0 mL/MinMercy Health Tiffin HospitalPharmacy Creatinine Clearance (ChemN/AFPeoples HospitalNucleated erythrocytes [Presence] in Blood by Automated countOrdered By: Christina Jarvis on 89-43-3740Eftxmmnmr RBC Auto Ql (Bld)0.1 /100{WBC}0-0.5FPeoples HospitalPlatelet mean volume Auto (Bld) [Entitic vol]Ordered By: Christina Jarvis on 85-39-9973Djdslpzv mean volume (Bld) [Entitic vol]7.8 fL6.3-10.7 [facility] HospitalPlatelets Auto (Bld) [#/Vol]Ordered By: Christina Jarvis on 83-52-7120Jaodmfbig (Bld) [#/Vol]308 10*3/jW021-600IdfhpkmbzMercy Health Tiffin HospitalPotassium [Moles/volume] in Serum or PlasmaOrdered By: Christina Jarvis on 73-17-6821Myzcntgtz [Moles/Vol]4.4 mmol/L3.5-5.1FPeoples HospitalProtein Auto test strip (U) [Mass/Vol]Ordered By: Christina Jarvis on 64-93-6427Xjjfwod (U) [Mass/Vol]NegativeNegativeMercy Health Tiffin HospitalProtein [Mass/volume] in Serum or PlasmaOrdered By: Christina Jarvis on 63-29-2194Wsfonof [Mass/Vol]6.5 g/dL6.4-8.9[facility] HospitalRBC Auto (Bld) [#/Vol]Ordered By: Christina Jarvis on 68-73-3615MQT (Bld) [#/Vol]4.46 10*6/uL3.60-5.00[facility] Centererum or plasma albumin/globulin mass ratioOrdered By: Christina Jarvis on 02-04-2023 Albumin/Globulin [Mass ratio]1.5 {ratio}[facility] Centererum or plasma anion gap determinationOrdered By: Christina Jarvis on 50-82-6857Uzuxh gap [Moles/Vol]10.1 mmol/L6.0-15.0[facility] Centererum or plasma high density lipoprotein (HDL) cholesterol measurementOrdered By: Christina Jarvis on 94-07-8412Ocfqigulaxg in HDL [Mass/Vol]47 mg/cQ22-53YizdawyzxMercy Health Tiffin HospitalComment on above:HDL CHOL ATP-III CLASSIFICATION Cardiovascular RiskHDL > or equal to 60 mg/dL LOWHDL < 40 mg/dL HIGHSerum or plasma total cholesterol/high density lipoprotein (HDL) cholesterol mass ratOrdered By: Christina Jarvis on 73-45-4354Aiypriwmeyd.total/Cholesterol in HDL [Mass ratio]3.7 {ratio}<5.0[facility] Centerodium [Moles/volume] in Serum or PlasmaOrdered By: Christina Jarvis on 99-14-6062Zwrsvl [Moles/Vol]140 mmol/D457-470 [facility] Centerpecific gravity Auto test strip (U) [Rel density]Ordered By: Christina Jarvis on 20-42-0800Kbyhbmtg gravity (U) [Rel density] 1.0101.001-1.030[facility] Centerquamous epithelial cells detection in urine sediment by light microscopyOrdered By: Christina Jarvis on 03-54-4803Tvlruytwxa cells.squamous LM Ql (Urine sed)0-1 [HPF]0-2FPeoples HospitalThyrotropin [Units/volume] in Serum or PlasmaOrdered By: Christina Jarvis on 79-79-1714LZR Qn2.01 m[IU]/L0.45-5.33[facility] HospitalTriglyceride [Mass/volume] in Serum or PlasmaOrdered By: Christina Jarvis on 17-65-8982Wkcqvjzljrqp [Mass/Vol]186 mg/dL0-149[facility] Comment on above:TRIG ATP III CLASSIFICATIONTRIG less than 150 mg/dL NormalTRIG 150-199 mg/dL Borderline highTRIG 200-500 mg/dL High TRIG greater than 500 mg/dL Very highStandard traceable to the Center for Disease Conrtrol and Prevention (CDC) test method.Urea nitrogen [Mass/volume] in Serum or PlasmaOrdered By: Christina Jarvis on 66-46-3455Bokb nitrogen [Mass/Vol]15 mg/dL7-25[facility] HospitalUrine bacteria detection by automated methodOrdered By: Christina Jarvis on 94-71-6496Fwigqypm Auto Ql (U)None seenNone SeenMercy Health Tiffin HospitalUrine clarity by refractometry automatedOrdered By: Christina Jarvis on 93-76-8972Rgezxsa Refractometry automated (U)ClearCleKeenan Private HospitalUrine glucose measurement by automated test strip (mass/volume) Ordered By: Christina Jarvis on 62-49-4807Mlaipgh Auto test strip (U) [Mass/Vol] Normal mg/dLNormalMercy Health Tiffin HospitalUrine hemoglobin detection by automated test stripOrdered By: Christina Jarvis on 36-94-9852Ycqwbytvlo Auto test strip Ql (U)TraceNegativeMercy Health Tiffin HospitalUrine leukocyte esterase detection by automated test stripOrdered By: Christina Jarvis on 02-04-2023 Leukocyte esterase Auto test strip Ql (U)NegativeNegativeMercy Health Tiffin HospitalUrobilinogen Auto test strip (U) [Mass/Vol]Ordered By: Christina Jarvis on 73-34-6243Xyelvegxkazd (U) [Mass/Vol]Normal mg/dLNormalMercy Health Tiffin HospitalWBC Auto (Bld) [#/Vol]Ordered By: Christina Jarvis on 95-77-8172HCT (Bld) [#/Vol]4.1 10*3/uL3.8-11.6FPeoples Hospital pH Auto test strip (U)Ordered By: Christina Jarvis on 17-08-2900nM (U)7.0 [pH] 5.0-9.0[facility] HospitalH PYLORI TISSUEon 12-22-2022H PYL TISSUE, UREASENegativeNormalNEGATIVEThe [facility] CenterComment on above: Performed By: #### HPYLT #### [facility] [address] [address] [address] Raffy HoytAmbulatory Clinical Summaryon 12-11-4504Lqbhtcawdg Clinical Summary{1i-5v-39-41-54-qi-36-04-9i-34-56-1g-64-70-ae-31}CD:[id number] Medical Specialty Hospital - AkronAmbulatory Clinical Summary {6c-y0-4w-28-b8-p4-39-25-6j-7b-62-5m-a0-c0-db-9b}CD:251281ErlzswNxqpicProMedica Toledo HospitalPatient Educationon 51-86-7654Ipdivdu EducationUrology Hematuria, Adult Hematuria is blood in [...] these instructions at home: Medicines ? Take vysn-gkn-fhddvjl and prescription medicines only as told by [...] the blood stops without treatment. ? Take ztgm-ddd-wltayxn and prescription medicines only as told by your health care provider. ? Drink enough fluid to keep your urine clear or pale yellow. This information is not intended to replace advice given to you by your health care provider. Make sure you discuss any questions you have with your health care provider. Document Released: 10/10/2006 Document Revised: 03/05/2020 Document Reviewed: 11/12/2017 [employer] Patient Education ? 2019 ManagerComplete.[facility] Urology Office/Clinic Noteon 60-89-6204Syyavau Office/Clinic NoteChief Complaint 3 week f/u to cysto This patient is here to complete his hematuria work-up. She had recent cystoscopic examination. Sheis here to review labs. [facility] Staff Pt is here for a [...] Moisés Nye, URO [address] [id number]- Additional Instructions: prn Patient Education Hematuria, Adult [...] evidence of tumors obstructions or mucosal lesions. [facility] HospitalComment on above:Result Comment: Electronically Signed By: Dave Krueger MD, Moisés Nye\.br\Date and Time Signed: 03/12/2109:24 EDT\.br\Electronically Co-Signed By: Elizabet Elliott MA\.br\Date and Time Co- Signed: 03/12/21 09:07 EDTLab Reportson 76-38-9897Hig Reports [id number]#1.00CD:127NoSelect Medical Specialty Hospital - AkronRAD - CT Reporton 06-35-5700XBW - CT Report [id number]#1.00CD:127NoSelect Medical Specialty Hospital - AkronUroVysion Fish and Urine Cyto ([facility]4 [facility])on 45-22-4417HEQGNV & UCDiagnosis InfoInvalid Interpretation [facility] CenterComment on above: Result Comment: A:Urine,Urine:Voided Diagnosis Summary [...] by : on: 02/19/2021 10:26:09Performed By: #### [id number] ####[facility] Elhyivgdyj858 [facility], QF[address]2Mfukuc Summary.on 43-14-6313Plactj Summary. CD:876275ZU:7195421XUk3yFr+PGhlYWQ+XP5HTZAlP84yiSIxbA9ET8eFTB8KUKZJAPTVZD6XGX0bf ZV2KAizQ1YsjyRx [file] c2U6 (more content not included)...NormalMercy Health – The Jewish HospitalConsent for Procedure/Surgeryon 06-50-0837Ypkfcfb for Procedure/Surgery [id number]#1.00CD:127[facility] HospitalConsent for Treatmenton 21-86-2299Orwjwxr for Treatment [id number]#1.00CD:[address] [place], [place] [address]Discharge Instructionson 08-94-3248Ptezrzemo Instructions [id number]#1.00CD:[address] [place], [place] [address]IntraOperative Documentson 93-16-4101QfaquLktaptwik Documents [id number]#1.00CD:127NormalFisher [address] Psychiatric CenterMain OR Intraoperative Recordon 66-49-8771Npoi OR Intraoperative Record IntraOp Document Type FTURO Summary Primary Physician: Moisés Acosta Jr., MD Finalized Date/Time: 02/12/21 14:26:27 Pt. Name: KAYLEIGH BROWN /Sex: 1950 Female Med Rec #: [id number] Physician: Moisés Acosta Jr., MD Financial #: [id number] Pt. Type: O Room/Bed: / Admit/Disch: 02/12/21 13:00:12 - Institution: Case Times FTURO Entry 1 Patient Times In Room 02/12/21 14:17:00 Out Room 02/12/21 14:26:00 Procedure Times Start 02/12/21 14:23:00 Stop 02/12/21 14:24:00 Anesthesia Times Last Modified By: Bhavani Roldan RN 02/12/21 14:26:22 Case Attendance FTURO Entry 1 Entry 2 Entry 3 Case Attendee Moisés Acosta Jr., MD [place] [employer]CTOR, Bhavani Walters RN Role Performed Surgeon - Primary Scrub - Primary Manufacturing Technician - Primary Time In 02/12/21 14:17:00 02/12/21 [...] Krueger MD, Moisés Nye, Verified (If Participants [place] MARSHALL, Guerita Pham, Applicable) Bhavani Roldan RN [...] Signatures Signed By: Bhavani Roldan RN 02/12/21 14:26Pro[facility] HospitalMain OR Preoperative Recordon 21-69-6708Ukps OR Preoperative RecordHolding Area Document Type FTURO Summary Primary Physician: Moisés Acosta Jr., MD Finalized Date/Time: 02/12/21 13:28:02 Pt. Name: STEPHANIE KAYLEIGHVero Bingham D.O.B./Sex: 1950 Female Med Rec #: [id number] Physician: Moisés Acosta Jr., MD Financial #: [id number] Pt. Type: O Room/Bed: / Admit/Disch: 02/12/21 [...] 02/12/21 13:20 Yuli MASCORRO, Bhavani Levine 02/12/21 13:28NoSelect Medical Specialty Hospital - AkronOperative Reporton 50-96-0073Xtirlllaw ReportPatient: KAYLEIGH BROWN Age: 70 years Sex: [...] CT scan and urine studies at that time..[facility] Comment on above:Result Comment: Electronically Signed By: Dave Krueger MD, Moisés Nye\.br\Date and Time Signed: 02/12/2114:27 EDTUroVysion Fish and Urine Cyto (P4 Labs)on 10-18-6540GTES Method of ExtractionVoidedNoSelect Medical Specialty Hospital - AkronComment on above:Performed By: #### [id number] ####[facility] [address] [place], [place]DVUX Number of Npgh3Csiyzlr Interpretation [facility] CenterComment on above:Performed By: #### [id number] ####[facility] [facility], [place]NNMU SpecimenUrineNoSelect Medical Specialty Hospital - AkronComment on above:Performed By: #### [id number] ####[facility] [place], [place]WBBB Type of ServiceTechnical Only [facility] HospitalComment on above:Performed By: #### [id number] ####[address] [address] [facility], CP[address]Hcwie on [id number]#1.00CD:127Normal [facility] 21-67-4945Xvzfcsvbc From: Margaret Downs MA To: EU - [...] fill out and fax back- will call [facility] and get a new specimen 02/12/21 at [facility]. Cx form was faxed- [facility] From: Marisol Swain To: EU - Clinical; Sent: 01/27/2021 11:43:45 EDT Show up: 02/10/2021 11:43:00 EDT Subject: CT Reminder/Recall being done at [facility] prior to 02/12/21 done, CT is in patients chart. will go over at time of Cysto 02/12/21.NormalMercy Health – The Jewish Hospital UroVysion Fish and Urine Cyto ([facility]4 [facility])on 17-67-4926JMVDQT & UCDiagnosis Info Invalid Interpretation [facility] CenterComment on above:Result Comment: Gross Description Electronically signed by : on: 02/11/2021 12:26:14Performed By: #### [id number] ####[facility] [address] [place], [place]Gwe-Rkyxizjusiipf Formon 49-75-0178Kcj-Certification Form [id number]#1.00CD:127NoSelect Medical Specialty Hospital - AkronAmbulatory Clinical Summaryon 76-03-7696Sfteucxzxm Clinical Summary {3k-v4-26-7b-78-1n-56-8x-b9-10-m6-q1-0d-05-d1-00}CD:736298YecuutXanwdoSelect Medical Specialty Hospital - AkronPatient Educationon 85-17-1293Usgrrtb EducationUrology Hematuria, Adult Hematuria is blood in [...] these instructions at home: Medicines ? Take xnnx-jpk-jgietew and prescription medicines only as told by [...] the blood stops without treatment. ? Take rbtg-ldt-fhkvmlt and prescription medicines only as told by [...] Reviewed: 11/12/2017 Elsevier Patient Education ? 2019 ManagerComplete.[facility] Pre-Authorization for Medical Treatmenton 41-26-5508Fjw-Authorization for Medical [id number]#1.00CD:127Pro[facility]edo HospitalUroVysion Fish and Urine Cyto ([facility]4 [facility])on 02-47-6352CPIE Method of ExtractionVoidedProMedica Toledo HospitalComment on above: Performed By: #### [id number] ####[facility] [address] [place], [place] [address]UVUC Number of Ffvg2Qrmjdse Interpretation Code [facility] HospitalComment on above:Performed By: #### [id number] ####[facility] [address] [place], [place]UVUC SpecimenUrineProMedica Toledo HospitalComment on above:Performed By: #### [id number] ####[facility] [address] [facility], [place]NGZY Type of ServiceTechnical OnlyProMedica Toledo HospitalComment on above:Performed By: #### [id number] ####[facility] [address]swcstxxqn[address] [facility] [id number] Office/Clinic Noteon 00-72-5182Qzseuei Office/Clinic NoteChief Complaint gross hematuria HPI Staff [...] Will order Local anesthesia. ABX sent to [facility] in [place]. Ordered: CT Abdomen/Pelvis w/ Contrast Urnls Dip Stick Auto w/o Microscopy POC 17285 Urology Procedure Order 2. Other urethral stricture, female (N35.82: Other urethral stricture, female) S/p Cysto/UD 09/21/2018. Ordered: Urology Procedure Order Orders: ciprofloxacin, 500 mg = 1 tab(s), Oral, Daily, Take 1 day prio to Cysto and 1 after Cysto completed, X 2 day(s), # 2 tab(s), Refills(s) 0, Pharmacy: [facility]/pharmacy #[id number], 175, cm, 01/27/21 10:28:00 EDT, Height/Length Dosing, 90, kg, 01/27/21 10:28:00 EDT, Weight Dosing I have reviewed the previous health record information and history for this pt. from Dr. Acosta. Follow-up With When Contact Information Dave Krueger MD, Moisés [address] Additional Instructions: Patient Education Hematuria, Adult [...] Social History Alcohol - (more content not included)...[facility] HospitalComment on above:Result Comment: Electronically Signed By: Dave Krueger MD, Moisés Nye\.br\Date and Time Signed: 01/27/2111:15 EDT\.br\Electronically Co-Signed By: Elizabet Elliott MA\.br\Date and Time Co-Signed: 01/27/21 11:06 EDTHIP LEFT 1 OR 2 VWS WITH PELVISon [id number] LEFT 1 OR 2 [facility]VISUn[facility] Department of Radiology [address] [place] [address] Patient Name: KAYLEIGH BROWN : 1950 Sex: F Age: Race: White Pt. Location: Patient Status: Ordered Date: 01/02/2019 1:50:00 PM Completed Date: 01/02/2019 01:59 PM Requesting Provider: JAZMIN AVILA Attending Provider: Report Copy To: Signs & Symptoms: S72.92XD Unsp fracture of left femur, subs for clos fx w routn heal I10 History: [place] Comments: , , , Ordering Provider - [...] spine Electronically signed by:Mila Hernandez. 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 Transcribed by: [email or web address], User Resident: Electronically Signed by: CHUCKIE HARRIS @ 11/27/2018 10:59 [facility] HospitalComment on above:Order Comment: , , , Ordering Provider - JAZMIN AVILA PA-C , HIP LEFT 1 OR 2 VWS WITH PELVISon [id number] LEFT 1 OR 2 VWS WITH PELVISUnAultman [facility] Department of Radiology [address] [place] [id number] Patient Name: KAYELIGH BROWN : 1950 Sex: F Age: Race: [...] alignment Electronically signed by:Chuckie Harris. Transcribed by: [email or web address], User Resident: Electronically Signed by: CHUCKIE HARRIS @ 10/18/2018 10:38 [facility] HospitalComment on above:Order Comment: , , , Ordering Provider - JAZMIN AVILA PA-C , CBC COMPLETE BLOOD COUNTon [id number] distribution width Ratio (RBC)14.9 %Fnfrnr61.5-15.0The Berger HospitalComment on above:Order Comment: Yes: Add to Previous draw if ablePerformed By: #### [id number] #### [facility] [address] [place] [address], [facility] HOSPITALHematocrit Volume Fraction (Bld)26.6 %Low36.0-45.0The Berger HospitalComment on above:Order Comment: Yes: Add to Previous draw if ablePerformed By: #### [id number] #### [facility] [address] [place] [address], [facility] HOSPITALHemoglobin mass conc (Bld)8.5 g/dLLow12.0-15.0The Berger HospitalComment on above:Order Comment: Yes: Add to Previous draw if ablePerformed By: #### [id number] #### [facility] [address] [place] [address], [facility] Entitic mass (RBC)29.7 juTjvljf76.0-33.0The Berger HospitalComment on above:Order Comment: Yes: Add to Previous draw if ablePerformed By: #### [id number] #### [facility] [address] [place] [address], [facility]HC mass conc (RBC)32.0 g/yXGplamh53.0-35.0The Berger HospitalComment on above:Order Comment: Yes: Add to Previous draw if ablePerformed By: #### [id number] #### [facility] [address] [place] [address], [facility] Entitic volume (RBC)93.0 sXMdczsv89.0-98.0The Berger HospitalComment on above:Order Comment: Yes: Add to Previous draw if ablePerformed By: #### [id number] #### [facility] [address] [place] [address], USANucleated RBC/100 WBC Ratio (Bld)0 %Normal0-0The Berger HospitalComment on above:Order Comment: Yes: Add to Previous draw if ablePerformed By: #### [id number] #### [facility] [address] [place] [address], USAPLAT YSX977 10*3/fRDcyw982-316Miw Berger HospitalComment on above:Order Comment: Yes: Add to Previous draw if able Performed By: #### [id number] #### [facility] [address] [place] [address], USARBC #/vol (Bld)2.86 10*6/uLLow3.80-5.00The Berger HospitalComment on above:Order Comment: Yes: Add to Previous draw if ablePerformed By: #### [id number] #### [facility] [address] [place] [address], USAWBC #/vol (Bld)5.72 10*3/uLNormal4.00-10.60The Berger HospitalComment on above:Order Comment: Yes: Add to Previous draw if ablePerformed By: #### 12575 #### [facility] [address] [place] [address], USABASIC METABOLIC PANELon 83-49-9082Qyclxey mass conc8.9 mg/dLNormal8.6-10.3The Berger HospitalComment on above:Order Comment: No: Do not add to previous drawPerformed By: #### [id number] #### [facility] [address] [place] [address], USAChloride molar qgzd146 mmol/THwkqrs73-024Fbh Berger HospitalComment on above:Order Comment: No: Do not add to previous drawPerformed By: #### 77548 #### [facility] [address] [place] [address], USACO2 molar conc26 mmol/IGspnwf96-17Xrl Berger HospitalComment on above:Order Comment: No: Do not add to previous draw Performed By: #### 27515 #### [facility] [address] [place] [address], USACreatinine mass conc0.62 mg/dLNormal0.60-1.20The Berger HospitalComment on above:Order Comment: No: Do not add to previous drawPerformed By: #### 86949 #### [facility] [address] [place] [address], USAGFR/1.73 sq M predicted among blacks MDRD vol rate/area (S/P/Bld)mL/min/{1.73_m2}Normal>60The Berger HospitalComment on above:Order Comment: No: Do not add to previous drawPerformed By: #### 23931 #### [facility] [address] [place] [address], USAGFR/1.73 sq M predicted among non-blacks MDRD vol rate/area (S/P/Bld)mL/min/{1.73_m2}Normal>60The [facility] Comment on above:Order Comment: No: Do not add to previous drawPerformed By: #### [id number] #### [facility] [address] [place] [address], USAGlucose mass gast934 mg/hKVszk01-779Xps Berger HospitalComment on above:Order Comment: No: Do not add to previous drawPerformed By: #### 45929 #### [facility] [address] [place] [address], USAPotassium molar conc4.4 mmol/LNormal3.5-5.1The Berger HospitalComment on above:Order Comment: No: Do not add to previous drawPerformed By: #### 55175 #### [facility] [address] [place] [address], USASodium molar ivrc046 mmol/TLoyffi071-563Pfo Berger HospitalComment on above:Order Comment: No: Do not add to previous drawPerformed By: #### [id number] #### [facility] [address] [place] [address], USAUrea nitrogen mass conc12 mg/dLNormal7-25The Berger HospitalComment on above:Order Comment: No: Do not add to previous drawPerformed By: #### [id number] #### [facility] [address] [address], [facility] HOSPITALCBC COMPLETE BLOOD COUNTon 10-45-7815Jxuiwhgsclx distribution width Ratio (RBC)14.8 %Kqrhvo86.5-15.0The Berger HospitalComment on above:Order Comment: No: Do not add to previous draw Performed By: #### [id number] #### [facility] [address] [place] [address], [facility] HOSPITALHematocrit Volume Fraction (Bld)27.9 %Low36.0-45.0The Berger HospitalComment on above:Order Comment: No: Do not add to previous drawPerformed By: #### [id number] #### [facility] [address] [place] [address], [facility] HOSPITALHemoglobin mass conc (Bld)9.1 g/dLLow12.0-15.0The Berger HospitalComment on above:Order Comment: No: Do not add to previous drawPerformed By: #### [id number] #### [facility] [address] [address], [facility] Entitic mass (RBC)29.9 vzVpraqw39.0-33.0The Berger HospitalComment on above:Order Comment: No: Do not add to previous drawPerformed By: #### [id number] #### [facility] [address] [place] [address], [facility] HOSPITALMCHC mass conc (RBC)32.6 g/vOLkdery49.0-35.0The Berger HospitalComment on above:Order Comment: No: Do not add to previous drawPerformed By: #### [id number] #### [facility] [address] [place] [address], [facility] HOSPITALMCV Entitic volume (RBC)91.8 mIYnfljw61.0-98.0The Berger HospitalComment on above:Order Comment: No: Do not add to previous drawPerformed By: #### 90787 #### [facility] [address] [place] [address], USANucleated RBC/100 WBC Ratio (Bld)0 %Normal0-0The Berger HospitalComment on above:Order Comment: No: Do not add to previous drawPerformed By: #### [id number] #### [facility] [address] [place] [address], [place]APLAT WZH255 10*3/aTWjsr925-621Ttx Berger HospitalComment on above:Order Comment: No: Do not add to previous draw Performed By: #### [id number] #### [facility] [address] [place] [address], [facility]LEY HOSPITALRBC #/vol (Bld)3.04 10*6/uLLow3.80-5.00The Berger HospitalComment on above:Order Comment: No: Do not add to previous drawPerformed By: #### [id number] #### [facility] [address] [place] [address], USAWBC #/vol (Bld)6.22 10*3/uLNormal4.00-10.60The Berger HospitalComment on above:Order Comment: No: Do not add to previous drawPerformed By: #### 68061 #### [facility] [address] [place] [address], USABASIC METABOLIC PANELon 02-44-7601Outsgkr mass conc8.4 mg/dLLow8.6-10.3The Berger HospitalComment on above:Order Comment: No: Do not add to previous drawPerformed By: #### 11082 #### [facility] [address] [place] [address], USAChloride molar pllk398 mmol/MXrthci33-434Zsr Berger HospitalComment on above:Order Comment: No: Do not add to previous drawPerformed By: #### 35345 #### [facility] [address] [place] [address], USACO2 molar conc27 mmol/GNnnrma02-25Ive Berger HospitalComment on above:Order Comment: No: Do not add to previous draw Performed By: #### 71554 #### [facility] [address] [place] [address], USACreatinine mass conc0.60 mg/dLNormal0.60-1.20The Berger HospitalComment on above:Order Comment: No: Do not add to previous drawPerformed By: #### 05130 #### [facility] [address] [place] [address], USAGFR/1.73 sq M predicted among blacks MDRD vol rate/area (S/P/Bld)mL/min/{1.73_m2}Normal>60The Berger HospitalComment on above:Order Comment: No: Do not add to previous drawPerformed By: #### 47348 #### [facility] [address] [place] [address], USAGFR/1.73 sq M predicted among non-blacks MDRD vol rate/area (S/P/Bld)mL/min/{1.73_m2}Normal>60The [facility] Comment on above:Order Comment: No: Do not add to previous drawPerformed By: #### [id number] #### [facility] [address] [place] [address], USAGlucose mass qlgg703 mg/uORiif12-476Ggj Berger HospitalComment on above:Order Comment: No: Do not add to previous drawPerformed By: #### [id number] #### [facility] [address] [place] [address], USAPotassium molar conc4.2 mmol/LNormal3.5-5.1The Berger HospitalComment on above:Order Comment: No: Do not add to previous drawPerformed By: #### [id number] #### [facility] [address] [place] [address], USASodium molar xsmz286 mmol/TMzz247-085Kso Berger HospitalComment on above:Order Comment: No: Do not add to previous drawPerformed By: #### 50600 #### [facility] [address] [facility] [address], USAUrea nitrogen mass conc11 mg/dLNormal7-25The Berger HospitalComment on above:Order Comment: No: Do not add to previous drawPerformed By: #### [id number] #### [facility] [address] [place] [address], [facility] HOSPITALCB W/DIFFon 44-81-9042ITA BASOPHILS0.0 10*3/uLNormal 0.0-0.2The Berger HospitalComment on above:Performed By: #### 47308 #### [facility] [address] [place] [address], [facility] HOSPITALABS IMM GRANS0.3 10*3/uLHigh0.0-0.2The Berger HospitalComment on above:Performed By: #### 54084 #### [facility] [address] [place] [address], USAABS NEUTROPHILS4.1 10*3/uLNormal1.6-7.6The Berger HospitalComment on above:Performed By: #### 25824 #### [facility] [address] [place] [address], USABasophils #/vol (Bld)0.5 %Normal0.0-1.0The Berger HospitalComment on above:Performed By: #### 12971 #### [facility] [address] [place] [address], [facility] HOSPITALEosinophils #/vol (Bld)0.2 10*3/uLNormal0.0-0.5The Berger HospitalComment on above:Performed By: #### 70208 #### [facility] [address] [place] [address], [facility] T[facility]LEY HOSPITALEosinophils/100 WBC (Bld)3.1 %Normal0.0-6.0The Berger HospitalComment on above:Performed By: #### 19221 #### [facility] [address] [place] [address], [facility] TINGLEY HOSPITALErythrocyte distribution width Ratio (RBC)14.8 %Normal 11.5-15.0The Berger HospitalComment on above:Performed By: #### 46431 #### [facility] [address] [place] [address], USAHematocrit Volume Fraction (Bld)24.3 %Low36.0-45.0The Berger HospitalComment on above:Performed By: #### 34916 #### [facility] [address] [place] [address], [facility] HOSPITALHemoglobin mass conc (Bld)7.9 g/dLLow12.0-15.0The Berger HospitalComment on above:Performed By: #### [id number] #### [facility] [address] [place] [address], [facility] HOSPITALIMMATURE GRANS5.0 %High0.0-1.0The Berger HospitalComment on above:Performed By: #### 75149 #### [facility] [address] [place] [id number], [facility] TINGLEY HOSPITALLymphocytes #/vol (Bld)0.8 10*3/uLLow1.2-4.0The Berger HospitalComment on above:Performed By: #### 87240 #### [facility] [address] [facility] [address], CAR[facility] TINGLEY HOSPITALLymphocytes/100 WBC (Bld)12.9 %Low20.0-45.0The Berger HospitalComment on above:Performed By: #### 44149 #### [facility] [address] [place] [address], [facility] Entitic mass (RBC)29.5 uuQkucxt66.0-33.0The Berger HospitalComment on above:Performed By: #### [id number] #### [facility] [address] [place] [address], [facility]HC mass conc (RBC)32.5 g/sFEgywyw89.0-35.0The Berger HospitalComment on above:Performed By: #### 41093 #### [facility] [address] [place] [address], [facility] Entitic volume (RBC)90.7 eZZosjlp12.0-98.0The Berger HospitalComment on above:Performed By: #### 82492 #### [facility] [address] [place] [address], [facility] HOSPITALMonocytes #/vol (Bld)0.6 10*3/uLNormal0.1-1.0The Berger HospitalComment on above:Performed By: #### 98970 #### [facility] [address] [place] [address], GCGJOSBO91.6 %Normal5.0-12.0The Berger HospitalComment on above:Performed By: #### 25368 #### [facility] [address] [place] [address], USANeutrophils/100 WBC (Bld)67.9 %Jscpmf47.0-72.0The Berger HospitalComment on above:Performed By: #### 10596 #### [facility] [address] [place] [address], USANucleated RBC/100 WBC Ratio (Bld)0 %Normal0-0The Berger HospitalComment on above:Performed By: #### 18050 #### [facility] [address] [place] [address], USAPLAT SMU783 10*3/nTDiih150-171Qbd Berger HospitalComment on above:Performed By: #### 32362 #### [facility] [address] [place] [address], [facility] HOSPITALRBC #/vol (Bld)2.68 10*6/uLLow3.80-5.00The Berger HospitalComment on above:Performed By: #### 43059 #### [facility] [address] [place] [address], USAWBC #/vol (Bld)6.04 10*3/uLNormal4.00-10.60The Berger HospitalComment on above:Performed By: #### 42253 #### [facility] [address] [place] [address], USAHEMOGLOBINon 69-91-9052Abscglfvln mass conc (Bld)8.7 g/dL Low12.0-15.0The Berger HospitalComment on above:Order Comment: No: Do not add to previous drawPerformed By: #### [id number] #### [facility] [address] [place] [address], USABASIC METABOLIC PANELon 72-27-9352Kdypwmi mass conc8.7 mg/dLNormal8.6-10.3The Berger HospitalComment on above:Order Comment: No: Do not add to previous drawPerformed By: #### 25361 #### [facility] [address] [place] [address], USAChloride molar ensq718 mmol/ENtrgph30-494Fxp Berger HospitalComment on above:Order Comment: No: Do not add to previous drawPerformed By: #### 29312 #### [facility] [address] [place] [address], USACO2 molar conc28 mmol/QPexnqq01-21Mmw Berger HospitalComment on above:Order Comment: No: Do not add to previous draw Performed By: #### 29451 #### [facility] [address] [place] [address], USACreatinine mass conc0.71 mg/dLNormal0.60-1.20The Berger HospitalComment on above:Order Comment: No: Do not add to previous drawPerformed By: #### 75761 #### [facility] [address] [place] [address], USAGFR/1.73 sq M predicted among blacks MDRD vol rate/area (S/P/Bld)mL/min/{1.73_m2}Normal>60The Berger HospitalComment on above:Order Comment: No: Do not add to previous drawPerformed By: #### [id number] #### [facility] [address] [place] [address], USAGFR/1.73 sq M predicted among non-blacks MDRD vol rate/area (S/P/Bld)mL/min/{1.73_m2}Normal>60The [facility] Comment on above:Order Comment: No: Do not add to previous drawPerformed By: #### [id number] #### [facility] [address] [place] [address], USAGlucose mass ndlx500 mg/dUQfho12-207Dhy Berger HospitalComment on above:Order Comment: No: Do not add to previous drawPerformed By: #### 95087 #### [facility] [address] [place] [address], USAPotassium molar conc4.2 mmol/LNormal3.5-5.1The Berger HospitalComment on above:Order Comment: No: Do not add to previous drawPerformed By: #### 25754 #### [facility] [address] [place] [address], USASodium molar zsxq085 mmol/GSdo768-762Cal Berger HospitalComment on above:Order Comment: No: Do not add to previous drawPerformed By: #### [id number] #### [facility] [address] [place] [address], USAUrea nitrogen mass conc13 mg/dLNormal7-25The Berger HospitalComment on above:Order Comment: No: Do not add to previous drawPerformed By: #### 90914 #### [facility] [address] [place] [address], USACBC COMPLETE BLOOD COUNTon 97-01-1293Mnyrjhtlovf distribution width Ratio (RBC)14.2 %Ymrent47.5-15.0The Berger HospitalComment on above:Order Comment: No: Do not add to previous draw Performed By: #### 60076 #### [facility] [address] [place] [address], USAHematocrit Volume Fraction (Bld)19.8 %Low36.0-45.0The Berger HospitalComment on above:Order Comment: No: Do not add to previous drawPerformed By: #### 51598 #### [facility] [address] [place] [address], USAHemoglobin mass conc (Bld)6.5 g/dLLow12.0-15.0The Berger HospitalComment on above:Order Comment: No: Do not add to previous drawPerformed By: #### 38151 #### [facility] [address] [place] [address], [facility] Entitic mass (RBC)30.0 vgYkqxrw66.0-33.0The Berger HospitalComment on above:Order Comment: No: Do not add to previous drawPerformed By: #### 68855 #### [facility] [address] [place] [address], [facility]HC mass conc (RBC)32.8 g/gIEmoxvn86.0-35.0The Berger HospitalComment on above:Order Comment: No: Do not add to previous drawPerformed By: #### [id number] #### [facility] [address] [place] [address], [facility] Entitic volume (RBC)91.2 tNZunqkx12.0-98.0The Berger HospitalComment on above:Order Comment: No: Do not add to previous drawPerformed By: #### 37902 #### [facility] [address] [place] [address], [facility] HOSPITALNucleated RBC/100 WBC Ratio (Bld)0 %Normal0-0The Berger HospitalComment on above:Order Comment: No: Do not add to previous drawPerformed By: #### 76841 #### [facility] [address] [place] [address], [place]APLAT KFM057 10*3/nXNdnz377-145Eka Berger HospitalComment on above:Order Comment: No: Do not add to previous draw Performed By: #### 69571 #### [facility] [address] [place] [address], [facility] HOSPITALRBC #/vol (Bld)2.17 10*6/uLLow3.80-5.00The Berger HospitalComment on above:Order Comment: No: Do not add to previous drawPerformed By: #### 55235 #### [facility] [address] [place] [address], USAWBC #/vol (Bld)5.87 10*3/uLNormal4.00-10.60The Berger HospitalComment on above:Order Comment: No: Do not add to previous drawPerformed By: #### 81293 #### [facility] [address] [place] [address], USAHEMOGLOBINon 60-52-9141Qzrkrcuvsp mass conc (Bld)8.5 g/dL Low12.0-15.0The Berger HospitalComment on above:Order Comment: No: Do not add to previous drawPerformed By: #### 94788 #### [facility] [address] [place] [address], USARBC'S 2 UNITSon 30-53-2907MWZFRCTNLO INTERP 1CTriHealthComment on above:Order Comment: No: Do not add to previous drawPerformed By: #### 76318 #### [facility] [address] [place] [address], USACROSSMATCH INTERP 2CTriHealthComment on above:Order Comment: No: Do not add to previous draw Performed By: #### 53692 #### [facility] [address] [place] [address], USAProtein mass wvla365 g/dLNormOhioHealth Arthur G.H. Bing, MD, Cancer CenterComment on above:Order Comment: No: Do not add to previous draw Performed By: #### 05114 #### [facility] [address] [place] [address], USAProtein mass concPTNoThe Christ HospitalComment on above:Order Comment: No: Do not add to previous drawResult Comment: Result changed by IF on 10/05/2018 10:04. The previous value was XM. Result changed by IF on 10/06/2018 00:30. The previous value was IS.Performed By: #### 55169 #### [facility] [address] [place] [address], USAResult Comment: Result changed by IF on 10/05/2018 13:18. The previous value was XM. Result changed by IF on 10/06/2018 00:30. The previous value was IS.Protein mass bcdo179 g/dLCommunity Memorial HospitalComment on above:Order Comment: No: Do not add to previous drawPerformed By: #### [id number] #### [facility] [address] [place] [address], USAUNIT ABO 1[facility] Comment on above:Order Comment: No: Do not add to previous drawPerformed By: #### [id number] #### [facility] [address] [place] [address], USAUNIT ABO 2[facility] Comment on above:Order Comment: No: Do not add to previous drawPerformed By: #### [id number] #### [facility] [address] [place] [address], USAUNIT ID [id number] Christ HospitalComment on above:Order Comment: No: Do not add to previous draw Performed By: #### [id number] #### [facility] [address] [place] [address], USAUNIT ID [id number] Health Montpelier HospitalComment on above:Order Comment: No: Do not add to previous draw Performed By: #### [id number] #### [facility] [address] [place] [address], [place] 1PosiClermont County HospitalComment on above:Order Comment: No: Do not add to previous drawPerformed By: #### [id number] #### [facility] [address] [place] [address], [place] 2PositiveNoThe Christ HospitalComment on above:Order Comment: No: Do not add to previous drawPerformed By: #### [id number] #### [facility] [address] [place] [address], [place] SCREENon 20-28-0463TPG INTERPRETATIONONoThe Christ HospitalComment on above:Performed By: #### [id number] #### [facility] [address] [place] [address], USARH INTERPRETATIONPositiveCommunity Memorial HospitalComment on above:Performed By: #### [id number] #### [facility] [address] [place] [address], USABASIC METABOLIC PANELon 77-29-6521Zjeislj mass conc8.5 mg/dLLow8.6-10.3The Berger HospitalComment on above:Order Comment: No: Do not add to previous drawPerformed By: #### [id number] #### [facility] [address] [place] [address], USAChloride molar ogey085 mmol/MApfapq51-262Ifz Berger HospitalComment on above:Order Comment: No: Do not add to previous drawPerformed By: #### [id number] #### [facility] [address] [place] [address], USACO2 molar conc26 mmol/PMqoxcl53-33Lox Berger HospitalComment on above:Order Comment: No: Do not add to previous draw Performed By: #### [id number] #### [facility] [address] [place] [address], USACreatinine mass conc0.63 mg/dLNormal0.60-1.20The Berger HospitalComment on above:Order Comment: No: Do not add to previous drawPerformed By: #### [id number] #### [facility] [address] [place] [address], USAGFR/1.73 sq M predicted among blacks MDRD vol rate/area (S/P/Bld)mL/min/{1.73_m2}Normal>60The Berger HospitalComment on above:Order Comment: No: Do not add to previous drawPerformed By: #### 84525 #### [facility] [address] [place] [address], USAGFR/1.73 sq M predicted among non-blacks MDRD vol rate/area (S/P/Bld)mL/min/{1.73_m2}Normal>60[facility] Comment on above:Order Comment: No: Do not add to previous drawPerformed By: #### [id number] #### [facility] [address] [place] [address], USAGlucose mass mmic164 mg/xEEwaa53-521Ruf Berger HospitalComment on above:Order Comment: No: Do not add to previous drawPerformed By: #### 71312 #### [facility] [address] [place] [address], USAPotassium molar conc4.6 mmol/LNormal3.5-5.1The Berger HospitalComment on above:Order Comment: No: Do not add to previous drawPerformed By: #### 05454 #### [facility] [address] [place] [address], USASodium molar twbk932 mmol/NFjz138-081Xzt Berger HospitalComment on above:Order Comment: No: Do not add to previous drawPerformed By: #### 95527 #### [facility] [address] [place] [address], USAUrea nitrogen mass conc17 mg/dLNormal7-25The Berger HospitalComment on above:Order Comment: No: Do not add to previous drawPerformed By: #### 73305 #### [facility] [address] [place] [address], USACalcium mass conc8.5 mg/dLLow8.6-10.3The Berger HospitalComment on above:Order Comment: No: Do not add to previous drawPerformed By: #### 20587 #### [facility] [address] [place] [address], USAChloride molar uyto078 mmol/HDxgwto18-760Vbe Berger HospitalComment on above:Order Comment: No: Do not add to previous drawPerformed By: #### 07255 #### [facility] [address] [place] [address], USACO2 molar conc21 mmol/KOuwnbj86-75Bjg Berger HospitalComment on above:Order Comment: No: Do not add to previous draw Performed By: #### [id number] #### [facility] [address] [place] [address], USACreatinine mass conc0.55 mg/dLLow0.60-1.20The Berger HospitalComment on above:Order Comment: No: Do not add to previous drawPerformed By: #### 98089 #### [facility] [address] [place] [address], USAGFR/1.73 sq M predicted among blacks MDRD vol rate/area (S/P/Bld)mL/min/{1.73_m2}Normal>60The Berger HospitalComment on above:Order Comment: No: Do not add to previous drawPerformed By: #### 54706 #### [facility] [address] [place] [address], USAGFR/1.73 sq M predicted among non-blacks MDRD vol rate/area (S/P/Bld)mL/min/{1.73_m2}Normal>60The [facility] Comment on above:Order Comment: No: Do not add to previous drawPerformed By: #### 73614 #### [facility] [address] [place] [address], USAGlucose mass jmew463 mg/tSTdps28-735Tmw Berger HospitalComment on above:Order Comment: No: Do not add to previous drawPerformed By: #### 06338 #### [facility] [address] [place] [address], USAPotassium molar conc4.8 mmol/LNormal3.5-5.1The Berger HospitalComment on above:Order Comment: No: Do not add to previous drawPerformed By: #### 40810 #### [facility] [address] [address], USASodium molar lfqk776 mmol/VNmb603-296Qlc Berger HospitalComment on above:Order Comment: No: Do not add to previous drawPerformed By: #### [id number] #### [facility] [address] [place] [address], USAUrea nitrogen mass conc15 mg/dLNormal7-25The Berger HospitalComment on above:Order Comment: No: Do not add to previous drawPerformed By: #### [id number] #### [facility] [address] [place] [address], USACBC COMPLETE BLOOD COUNTon 57-65-9368Teuxhnzccfk distribution width Ratio (RBC)13.9 %Zuhfjd78.5-15.0The Berger HospitalComment on above:Order Comment: No: Do not add to previous draw Performed By: #### 55062 #### [facility] [address] [place] [address], USAHematocrit Volume Fraction (Bld)25.6 %Low36.0-45.0The Berger HospitalComment on above:Order Comment: No: Do not add to previous drawPerformed By: #### 06967 #### [facility] [address] [place] [address], USAHemoglobin mass conc (Bld)8.1 g/dLLow12.0-15.0The Berger HospitalComment on above:Order Comment: No: Do not add to previous drawPerformed By: #### 90557 #### [facility] [address] [place] [address], [facility] Entitic mass (RBC)29.5 dhFmhmjm10.0-33.0The Berger HospitalComment on above:Order Comment: No: Do not add to previous drawPerformed By: #### 39007 #### [facility] [address] [place] [address], [facility]HC mass conc (RBC)31.6 g/dLLow32.0-35.0The Berger HospitalComment on above:Order Comment: No: Do not add to previous drawPerformed By: #### 83701 #### [facility] [address] [facility] [address], [facility] Entitic volume (RBC)93.1 qOLshchl88.0-98.0The Berger HospitalComment on above:Order Comment: No: Do not add to previous drawPerformed By: #### [id number] #### [facility] [address] [facility] [place] [address], [facility]LEY HOSPITALNucleated RBC/100 WBC Ratio (Bld)0 %Normal0-0The Berger HospitalComment on above:Order Comment: No: Do not add to previous drawPerformed By: #### 96100 #### [facility] [address] [place] [address], USAPLAT UIV200 10*3/vEVmylnh915-125Rul Berger HospitalComment on above:Order Comment: No: Do not add to previous draw Performed By: #### 88612 #### [facility] [address] [place] [address], [facility] TINGLEY HOSPITALRBC #/vol (Bld)2.75 10*6/uLLow3.80-5.00The Berger HospitalComment on above:Order Comment: No: Do not add to previous drawPerformed By: #### 71964 #### [facility] [address] [place] [address], [facility] #/vol (Bld)5.86 10*3/uLNormal4.00-10.60The Berger HospitalComment on above:Order Comment: No: Do not add to previous drawPerformed By: #### [id number] #### [facility] [address] [place] [address], [facility]LEY HOSPITALOperative Reporton [id number] ReportMR#: [id number] I [facility] Pt. Name: Kayleigh Brown Room #: [id number] Discharge Date: Birthdate: 1950 OPERATIVE REPORT DATE OF SURGERY: 10/02/2018 SURGEON: Pete Garcia M.D. 2ND GRADE TEACHER: Dr. Thornton., Dr. Harpal Azar, Dr. George Patel, Dr. Ruperto Hernandez. PREOPERATIVE DIAGNOSIS: Left hip [place] B2 periprosthetic femur fracture. POSTOPERATIVE DIAGNOSIS: Left hip [place] B2 periprosthetic femur fracture. PROCEDURE PERFORMED: 1. [...] extremity. She was subsequently diagnosed with a [place] B2 periprosthetic femur fracture at the site [...] the lateral decubitus position using the hip welding process engineer system. All bony prominences were well padded. [...] Pete Garcia M.D. 10/07/2018 10:34 A Pete Gacria M.D. I was present for the mireles and critical portions and I was otherwise immediately available to assist. Date Dict: 10/02/2018/08:30 P/George Patel MD Date Trans: 10/03/2018 02:44 A/july DN_JN:[id number] cc: Christina Jarvis D.O. [address] [place] [address]EpjzidFsaCommunity Memorial HospitalVITAMIN D 25-HYDROXYon 01-08-2937XWEIRYH D 25-OH27.7 ng/mLLow30.0-80.0The Berger HospitalComment on above:Result Comment: >80.0 Toxicity possible Performed By: #### 71855 #### [facility] [address]*ANAEROBIC CULTUREon 10-02-2018*ANAEROBIC CULTUREClinical Report: (D) Specimen/Source: SWAB/INTRAOP SPEC Collected: 10/02/2018 17:38 Status: Final Last Updated: 10/07/2018 08:20 (1) 1.) LEFT HIP CULT RES (Final) No Anaerobes Isolated 5 DaysNoThe Christ HospitalComment on above:Order Comment: No: Do not add to previous drawPerformed By: #### 25801 #### [facility] [address] [place] [address], [facility]*WOUND CULTUREon 10-02-2018*WOUND CULTUREClinical Report: (D) Specimen/Source: WOUND/INTRAOP SPEC Collected: 10/02/2018 17:38 Status: Final Last Updated: 10/07/2018 07:52 (1) 1.) LEFT HIP GRAM (Final) No Polys Seen No Bacteria Seen CULT RES (Final) No Growth Day 5NoThe Christ HospitalComment on above: Order Comment: No: Do not add to previous drawPerformed By: #### [id number] #### [facility] [address] [address], USABASIC METABOLIC PANELon 56-69-2856Vfxnydh mass conc8.5 mg/dLLow8.6-10.3The Berger HospitalComment on above:Order Comment: No: Do not add to previous drawPerformed By: #### 84546, 91031 #### [facility] [address] [place] [address], USAChloride molar fckm235 mmol/LFbercj19-169Yjd Berger HospitalComment on above:Order Comment: No: Do not add to previous drawPerformed By: #### 74596, 03797 #### [facility] [address] [place] [address], USACO2 molar conc18 mmol/LDre18-28Tyd Berger HospitalComment on above:Order Comment: No: Do not add to previous draw Performed By: #### 30075, 90406 #### [facility] [address] [place] [address], USACreatinine mass conc0.66 mg/dLNormal0.60-1.20The Berger HospitalComment on above:Order Comment: No: Do not add to previous drawPerformed By: #### 41060, 46030 #### [facility] [address] [place] [address], USAGFR/1.73 sq M predicted among blacks MDRD vol rate/area (S/P/Bld)mL/min/{1.73_m2}Normal>60The Berger HospitalComment on above:Order Comment: No: Do not add to previous drawPerformed By: #### 22478, 74095 #### [facility] [address] [place] [address], USAGFR/1.73 sq M predicted among non-blacks MDRD vol rate/area (S/P/Bld)mL/min/{1.73_m2}Normal>60The [facility] Comment on above:Order Comment: No: Do not add to previous drawPerformed By: #### 14279, 12653 #### [facility] [address] [place] [address], USAGlucose mass urbl434 mg/rAHmav52-520Glm Berger HospitalComment on above:Order Comment: No: Do not add to previous drawPerformed By: #### 96291, 82404 #### [facility] [address] [place] [address], USAPotassium molar conc4.8 mmol/LNormal3.5-5.1The Berger HospitalComment on above:Order Comment: No: Do not add to previous drawPerformed By: #### 87024, 21345 #### [facility] [address] [place] [address], USASodium molar ygoz164 mmol/RGel119-600Sja Berger HospitalComment on above:Order Comment: No: Do not add to previous drawPerformed By: #### 82072, 85715 #### [facility] [address] [place] [address], USAUrea nitrogen mass conc13 mg/dLNormal7-25The Berger HospitalComment on above:Order Comment: No: Do not add to previous drawPerformed By: #### 74247, 09393 #### [facility] [address] [place] [address], [facility] [place] COMPLETE BLOOD COUNTon 00-79-2841Ecdxhxgszum distribution width Ratio (RBC)14.1 %Lnnztx07.5-15.0The Berger HospitalComment on above:Order Comment: No: Do not add to previous draw Performed By: #### 36819 #### [facility] [address] [facility] [place] [address], [facility]LEY HOSPITALHematocrit Volume Fraction (Bld)25.9 %Low36.0-45.0The Berger HospitalComment on above:Order Comment: No: Do not add to previous drawPerformed By: #### 72238 #### [facility] [address] [place] [address], CAR[facility]INGLEY HOSPITALHemoglobin mass conc (Bld)8.6 g/dLLow12.0-15.0The Berger HospitalComment on above:Order Comment: No: Do not add to previous drawPerformed By: #### 48638 #### [facility] [address] [place] [address], [facility] Entitic mass (RBC)30.2 cxImivof71.0-33.0The Berger HospitalComment on above:Order Comment: No: Do not add to previous drawPerformed By: #### 30789 #### [facility] [address] [facility] [place] [address], [facility]HC mass conc (RBC)33.2 g/sKTtshhn81.0-35.0The Berger HospitalComment on above:Order Comment: No: Do not add to previous drawPerformed By: #### 71285 #### [facility] [address] [place] [address], [facility] Entitic volume (RBC)90.9 dXDgtcgf47.0-98.0The Berger HospitalComment on above:Order Comment: No: Do not add to previous drawPerformed By: #### 73162 #### [facility] [address] [place] [address], USANucleated RBC/100 WBC Ratio (Bld)0 %Normal0-0The Berger HospitalComment on above:Order Comment: No: Do not add to previous drawPerformed By: #### 75106 #### [facility] [address] [place] [address], USAPLAT ZTA198 10*3/fONrhlbx047-231Wll Berger HospitalComment on above:Order Comment: No: Do not add to previous draw Performed By: #### 79361 #### [facility] [address] [place] [address], [facility] HOSPITALRBC #/vol (Bld)2.85 10*6/uLLow3.80-5.00The Berger HospitalComment on above:Order Comment: No: Do not add to previous drawPerformed By: #### 39404 #### [facility] [address] [place] [address], [facility] HOSPITALWBC #/vol (Bld)8.00 10*3/uLNormal4.00-10.60The Berger HospitalComment on above:Order Comment: No: Do not add to previous drawPerformed By: #### 17650 #### [facility] [address] [place] [address], USAErythrocyte distribution width Ratio (RBC)14.2 %Normal 11.5-15.0The Berger HospitalComment on above:Order Comment: This order is a replacement of the rejected order with accession number [id number].Performed By: #### 81489 #### [facility] [address] [place] [address], USAHematocrit Volume Fraction (Bld)27.0 %Low36.0-45.0The Berger HospitalComment on above:Order Comment: This order is a replacement of the rejected order with accession number [id number].Performed By: #### 54884 #### [facility] [address] [facility] [place] [address], [facility] HOSPITALHemoglobin mass conc (Bld)8.7 g/dLLow12.0-15.0The Berger HospitalComment on above:Order Comment: This order is a replacement of the rejected order with accession number [id number].Performed By: #### 37823 #### [facility] [address] [facility]. [place] [address], [facility] [place] Entitic mass (RBC)29.6 neCqjcjj01.0-33.0The Berger HospitalComment on above:Order Comment: This order is a replacement of the rejected order with accession number [id number].Performed By: #### 47193 #### [facility] [address] [place] [address], [facility] mass conc (RBC)32.2 g/oIDolwfg25.0-35.0The Berger HospitalComment on above:Order Comment: This order is a replacement of the rejected order with accession number [id number].Performed By: #### 82262 #### [facility] [address] [place] [address], [facility] [place] Entitic volume (RBC)91.8 gFJtdlzt24.0-98.0The Berger HospitalComment on above:Order Comment: This order is a replacement of the rejected order with accession number [id number].Performed By: #### 65497 #### [facility] [address] [place] [address], [facility] HOSPITALNucleated RBC/100 WBC Ratio (Bld)0 %Normal0-0The Berger HospitalComment on above:Order Comment: This order is a replacement of the rejected order with accession number [id number].Performed By: #### 54758 #### [facility] [address] [place] [address], USAPLAT BGQ132 10*3/mYMhlqsx609-715Unl Berger HospitalComment on above:Order Comment: This order is a replacement of the rejected order with accession number [id number].Performed By: #### 92822 #### [address] [place] [address], [facility] HOSPITALRBC #/vol (Bld)2.94 10*6/uLLow3.80-5.00The Berger HospitalComment on above:Order Comment: This order is a replacement of the rejected order with accession number [id number].Performed By: #### 31731 #### [place] [address], [facility] HOSPITALWBC #/vol (Bld)5.98 10*3/uLNormal4.00-10.60The Berger HospitalComment on above:Order Comment: This order is a replacement of the rejected order with accession number [id number].Performed By: #### 66491 #### [place] [address], [facility] LEFT 1 OR 2 VWS WITH PELVISon 81-66-1529DTJ LEFT 1 OR 2 VWS WITH PELVISUnAultman Hospital Department of Radiology [address] [place] [id number] Patient Name: KAYLEIGH BROWN : 1950 Sex: F Age: Race: White Pt. Location: [id number] Patient Status: I Ordered Date: 10/02/2018 7:15:00 [...] Documentation Electronically signed by:Chuckie Harris. Transcribed by: [email or web address], User Resident: Electronically Signed by: CHUCKIE HARRIS @ 10/03/2018 05:06 UC Medical CenterComment on above:Order Comment: No: Do not add to previous drawPORTABLE HIP LEFT 1 OR 2 VWS WITH PELVISon 66-29-7310SOAFVXOU HIP LEFT 1 OR 2 VWS WITH PELVISUnAultman Hospital Department of Radiology [address] [place] [id number] Patient Name: KAYLEIGH BROWN : 1950 Sex: F Age: Race: White Pt. 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 Transcribed by: [email or web address], User Resident: Electronically Signed by: CHUCKIE HARRIS @ 10/03/2018 10:05 AMNormalSelect Medical Cleveland Clinic Rehabilitation Hospital, BeachwoodComment on above:Order Comment: No: Do not add to previous drawSODIUM BLOODon 98-29-8265Wmymmq molar nxlc412 mmol/OIay039-946Nmf Berger HospitalComment on above:Order Comment: No: Do not add to previous drawPerformed By: #### [id number] #### [facility] [address] [place] [address], USAVENOUS BLOOD GASon 71-94-1392WVOI EXCESS2 mmol/LNormal-2-2 The Berger HospitalComment on above:Performed By: #### 98949 #### [facility] [address] [place] [address], USADELIVERY SYSTEMSUNKNOWN - ORNormalThe Berger HospitalComment on above:Performed By: #### 90649 #### [facility] [address] [place] [address], USAHCO3 molar conc (Bld)27 mmol/BSkqipk75-79Oqk Berger HospitalComment on above:Performed By: #### 66331 #### [facility] [address] [place] [address], USAOxygen ppres (Bld)35 mm[Hg]Lol95-702Dta [facility] HospitalComment on above:Performed By: #### 76505 #### [facility] [address] [place] [address], USAOxygen saturation in Blood65.8 %Umpsvv03.0-85.0The Berger HospitalComment on above:Performed By: #### 64516 #### [facility] [address] [place] [address], DYNPCH220 guFvEtyoov10-80Nan Berger HospitalComment on above:Performed By: #### 97928 #### [facility] [address] [place] [address], USApH (Bld)7.40 [pH]Normal7.33-7.43The Berger HospitalComment on above:Performed By: #### 44542 #### [facility] [address] [place] [address], USAVITAMIN D 25-HYDROXYon 71-44-3707CKBSESJ D 25-OH27.4 ng/mL Low30.0-80.0The Berger HospitalComment on above:Result Comment: >80.0 Toxicity possiblePerformed By: #### 51149, 29156 #### [facility] [address] [place] [address], USABASIC METABOLIC PANELon 10-43-8406Szvwzbs mass conc9.1 mg/dLNormal8.6-10.3The Berger HospitalComment on above:Order Comment: No: Do not add to previous drawPerformed By: #### 75155 #### [facility] [address] [place] [address], USAChloride molar conc98 mmol/VDgbjwm26-227Eio [facility] HospitalComment on above:Order Comment: No: Do not add to previous drawPerformed By: #### 51865 #### [facility] [address] [place] [address], USACO2 molar conc26 mmol/CLuqbxv62-70Gpn Berger HospitalComment on above:Order Comment: No: Do not add to previous draw Performed By: #### 06635 #### [facility] [address] [place] [address], USACreatinine mass conc0.66 mg/dLNormal0.60-1.20The Berger HospitalComment on above:Order Comment: No: Do not add to previous drawPerformed By: #### 70442 #### [facility] [address] [place] [address], USAGFR/1.73 sq M predicted among blacks MDRD vol rate/area (S/P/Bld)mL/min/{1.73_m2}Normal>60The Berger HospitalComment on above:Order Comment: No: Do not add to previous drawPerformed By: #### 71274 #### [facility] [address] [place] [address], USAGFR/1.73 sq M predicted among non-blacks MDRD vol rate/area (S/P/Bld)mL/min/{1.73_m2}Normal>60The [facility] Comment on above:Order Comment: No: Do not add to previous drawPerformed By: #### 75050 #### [facility] [address] [place] [address], USAGlucose mass hbsd941 mg/gGBriq59-842Kkc [facility] HospitalComment on above:Order Comment: No: Do not add to previous drawPerformed By: #### 62088 #### [facility] [address] [place] [address], USAPotassium molar conc4.2 mmol/LNormal3.5-5.1The Berger HospitalComment on above:Order Comment: No: Do not add to previous drawPerformed By: #### 14960 #### [facility] [address] [place] [address], USASodium molar ssoi726 mmol/GZtb579-261Rep Berger HospitalComment on above:Order Comment: No: Do not add to previous drawPerformed By: #### 65993 #### [facility] [address] [place] [address], USAUrea nitrogen mass conc13 mg/dLNormal7-25The Berger HospitalComment on above:Order Comment: No: Do not add to previous drawPerformed By: #### 47188 #### [facility] [address] [facility] [place] [address], [facility]OSPITALCBC COMPLETE BLOOD COUNTon 81-88-8383Xhbmdpqooed distribution width Ratio (RBC)14.2 %Pozlna80.5-15.0The Berger HospitalComment on above:Order Comment: No: Do not add to previous draw Performed By: #### 21844 #### [facility] [address] [place] [address], [facility]LEY HOSPITALHematocrit Volume Fraction (Bld)26.7 %Low36.0-45.0The Berger HospitalComment on above:Order Comment: No: Do not add to previous drawPerformed By: #### 52894 #### [facility] [address] [address], USAHemoglobin mass conc (Bld)8.7 g/dLLow12.0-15.0The Berger HospitalComment on above:Order Comment: No: Do not add to previous drawPerformed By: #### 01300 #### [facility] [address] [place] [address], [facility] [place] Entitic mass (RBC)30.2 eoOvlxiu29.0-33.0The Berger HospitalComment on above:Order Comment: No: Do not add to previous drawPerformed By: #### [id number] #### [facility] [address] [place] [address], [facility]ULSAHC mass conc (RBC)32.6 g/pBIocyqy04.0-35.0The Berger HospitalComment on above:Order Comment: No: Do not add to previous drawPerformed By: #### [id number] #### [facility] [address] [place] [address], [facility] [place] Entitic volume (RBC)92.7 mPTcjjqj06.0-98.0The Berger HospitalComment on above:Order Comment: No: Do not add to previous drawPerformed By: #### [id number] #### [facility] [address] [place] [address], [facility] HOSPITALNucleated RBC/100 WBC Ratio (Bld)0 %Normal0-0The Berger HospitalComment on above:Order Comment: No: Do not add to previous drawPerformed By: #### [id number] #### [facility] [address] [place] [address], [facility]INGLEY HOSPITALPLAT RPF750 10*3/nYUxdoxt152-805Imn Berger HospitalComment on above:Order Comment: No: Do not add to previous draw Performed By: #### [id number] #### [facility] [address] [place] [address], [facility] HOSPITALRBC #/vol (Bld)2.88 10*6/uLLow3.80-5.00The Berger HospitalComment on above:Order Comment: No: Do not add to previous drawPerformed By: #### [id number] #### [facility] [address] [place] [address], [facility] HOSPITALWBC #/vol (Bld)6.63 10*3/uLNormal4.00-10.60The Berger HospitalComment on above:Order Comment: No: Do not add to previous drawPerformed By: #### [id number] #### [address] [address], USACT LOWER EXTREMITY WO CONTRAST LEFTon 53-95-1534NU LOWER EXTREMITY WO CONTRAST LEFTUnAultman Hospital Department of Radiology [address] [place] [phone] Patient Name: KAYLEIGH BROWN : 1950 Sex: F Age: Race: White Pt. Location: [id number] Patient Status: I Ordered Date: 10/01/2018 4:45:00 [...] stem. Electronically signed by:Chuckie Harris. Transcribed by: [email or web address], User Resident: Electronically Signed by: CHUCKIE HARRIS @ 10/02/2018 09:09 [facility] HospitalComment on above:Order Comment: R/O Fractures, CT scan of entire femur for preop evaluationFEMUR LEFT 2 [facility] 17-15-2374VRAJG LEFT 2 [facility]ni[facility] Department of Radiology [address] [place] [phone] Patient Name: KAYLEIGH BROWN : 1950 Sex: F Age: Race: White Pt. Location: [id number] Patient Status: I Ordered Date: 10/01/2018 3:55:00 [...] CT Electronically signed by:Chuckie Harris. Transcribed by: [email or web address], User Resident: Electronically Signed by: CUHCKIE HARRIS @ 10/02/2018 09:33 AMNormalThe Berger HospitalComment on above:Order Comment: R/O FXPROTHROMBIN TIMEon 23-40-8335YXQ Coag RelTime (PPP)1.12 {INR}Normal0.91-1.16The Berger HospitalComment on above:Order Comment: No: Do not [...] OPTIMAL THERAPEUTIC RANGE. CHEST 1995;108:231S-246S.Performed By: #### [id number] #### [facility] [address] [place] [address], [facility]LEY HOSPITALProthrombin time (PT) Coag time (PPP)14.4 dZqxypq96.3-14.8 The Berger HospitalComment on above:Order Comment: No: Do not add to previous drawResult Comment: ALL RESULTS MUST BE INTERPRETED WITH RESPECT TO BLOOD DRAWING ARTIFACT OR DILUTION ERROR OF ANTICOAGULANT AT THE TIME OF SAMPLING.Performed By: #### [id number] #### [facility] [address] [place] [address], USARBC'S 2 UNITSon 00-46-4586OCTAKDODXT INTERP 1CTriHealthComment on above:Performed By: #### [id number] #### [facility] [address] [place] [address], [facility] TINGLEY HOSPITALCROSSMATCH INTERP 2CTriHealthComment on above:Performed By: #### [id number] #### [facility] [address] [place] [address], [facility] HOSPITALProtein mass qfdw837 g/dLNoThe Christ HospitalComment on above:Performed By: #### [id number] #### [facility] [address] [place] [address], [facility]OSPITALProtein mass concRENoThe Christ HospitalComment on above:Result Comment: Result changed by IF on 10/02/2018 16:58. The previous value was XM. Result changed by IF on 10/02/2018 21:55. The previous value was IS. Result changed by IF on 10/05/2018 06:35. The previous value was XM.Performed By: #### [id number] #### [facility] [address] [place] [address], USAUNIT ABO 1[facility] Comment on above:Performed By: #### [id number] #### [facility] [address] [place] [address], USAUNIT ABO 2[facility] Comment on above:Performed By: #### [id number] #### [facility] [address] [place] [address], USAUNIT ID [id number] Memorial HospitalComment on above:Performed By: #### [id number] #### [facility] [address] [place] [address], USAUNIT ID [id number] Memorial HospitalComment on above:Performed By: #### [id number] #### [facility] [address] [place] [address], USAUNIT RH 1PosiClermont County HospitalComment on above:Performed By: #### 86636 #### [facility] [address] [place] [address], USAUNIT RH 2PositiveCommunity Memorial HospitalComment on above:Performed By: #### [id number] #### [facility] [address] [place] [address], USATYPE AND SCREENon 60-26-1948AJZ INTERPRETATIONWooster Community HospitalComment on above:Performed By: #### [id number] #### [facility] [address] [place] [address], USARH INTERPRETATIONPositiveCommunity Memorial HospitalComment on above:Performed By: #### [id number] #### [facility] Vital Signs Date TimeVital SignValuePerforming CzucnmzvqLmzrronu11-96-0851 09:04-0400Body onspfy351.72 cmDaifeanyi Jarvis DO Work Phone: [facility]08-20-2025 09:04-0400 Body mass index (BMI) [Ratio]31.3 kg/u2Jsgpwifeanyi Jarvis DO Work Phone: [phone]74[facility]08-20-2025 09:04-0400 Body kehtpvgyjtk00 [degF]Christina Jarvis DO Work Phone: [phone]08-20-2025 09:04-0400 Body .44 kgDaifeanyi Lockwoodzac DO Work Phone: [phone]20[facility]08-20-2025 09:04-0400 Diastolic blood zwdgahec70 mm[Hg]Christina Jarvis DO Work Phone: [phone]85[facility]08-20-2025 09:04-0400 Heart rate83 /minDavikaron Matheus DO Work Phone: [phone])[address]08-20-2025 09:04-0400 SaO2% (BldA) [Mass fraction]98 %Christina Jarvis DO Work Phone: [phone]08-20-2025 09:04-0400 Systolic blood kvenxefr594 mm[Hg]Christina Jarvis DO Work Phone: [phone]11-08-2024 11:55-0500 Body otkhue849.72 cmMercy Health [facility] Hospital11-08-2024 11:55-0500Body mass index (BMI) [Ratio]33.5 kg/z4JkuwcciamMercy Health Tiffin Hospital11-08-2024 11:55-0500Body pfnozboakku77.6 [degF][facility]11-08-2024 11:55-0500Body yrfbfn391.01 kgMercy Health Tiff[facility] Hospital11-08-2024 11:55-0500Diastolic blood zetrrjfi06 mm[Hg][facility] 08-31-2024 11:55-0500Heart rate89 /[facility] 08-31-2024 11:55-0500Respiratory rate16 /[facility] 08-31-2024 11:55-7251BqY8% (BldA) [Mass fraction]97 %[facility]11-08-2024 11:55-0500Systolic blood dvczygwd828 mm[Hg][facility]08-05-2024 14:42-0400Body ldyddh942.41 cmDO Christina Jarvis Work Phone: [phone])[address]08-05-2024 14:42-0400 Body mass index (BMI) [Ratio]46.3 kg/m2DO Christina Jarvis Work Phone: [phone]08-05-2024 14:42-0400 Body ryfzgzptmwg23 [degF]DO Christina Jarvis Work Phone: [phone]08-05-2024 14:42-0400 Body afaeza73.97 kgDO Christina Jarvis Work Phone: [phone])[address]08-05-2024 14:42-0400 Diastolic blood ebjlcyht64 mm[Hg]DO Christina Jarvis Work Phone: [phone])[address]08-05-2024 14:42-0400 Heart rate94 /Yvette Jarvis Work Phone: [phone])[address]08-05-2024 14:42-0400 Respiratory rate18 /Yvette Jarvis Work Phone: [phone])39833 [address]08-05-2024 14:42-0400 SaO2% (BldA) [Mass fraction]95 %DO Christina Jarvis Work Phone: [phone])444[address]08-05-2024 14:42-0400 Systolic blood mm[Hg]DO Christina Jarvis Work Phone: [phone])[address]03-18-2022 11:30-0400 Body zaowzw022.26 cmDaifeanyi Jarvis Other [employer] Other 03-18-2022 11:30-0400Body mass index (BMI) [Ratio] 32.63 kg/z1ExcyvChristina Jarvis Other [employer] Other 03-18-2022 11:30-0400Body asssmzguhgk49.6 [degF]Christina Jarvis Other [employer] Other 03-18-2022 11:30-0400Body sdtzaz796.25 kgChristina Jarvis Other [employer] Other 03-18-2022 11:30-0400Diastolic blood ipggduql37 mm[Hg] Christina Jarvis Other [employer] Other 03-18-2022 11:30-0400Respiratory rate18 /minDzaheer Jarvis Other [employer] Other 03-18-2022 11:30-0120WoX4% (BldA) [Mass fraction]98 % Christina Jarvis Other [employer] Other 03-18-2022 11:30-0400Systolic blood lqoahjkg775 mm[Hg] Christina Jarvis Other [employer] Other Encounters Encounter DateEncounter TypeCare ProviderFacilityStart: 50-64-9127ntqkdpudhx Christina JarvisFacility:[facility] Centertart: 06-12-2025 End: 58-59-9889qlrswiezjuDgrqz Girvin DO Work Phone: [facility] Work Phone: Start: 06-12-2025 End: 22-85-4673Dhbauhd encounter procedureDaifeanyi Jarvis DO-[facility] [place] Work Phone: Start: 06-10-2025 End: 61-84-7245Hsczcwy encounter procedureDaifeanyi Jarvis DO-[facility] [place] Work Phone: Start: 06-10-2025 End: 53-82-1403jnmwtglvvrYsfbx Girvin DO Work Phone: [facility] Work Phone: Start: 08-31-2024 End: 89-03-2104fumnfsjvryNkubpuisl [facility] Work Phone: Start: 08-31-2024 End: 51-64-8049Qwdmfcf encounter procedureAt[facility] Work Phone: Start: 05-28-2024 End: 71-97-3337olqrpdrgywLM Christina Jarvis Work Phone: [facility] Work Phone: Start: 05-28-2024 End: 63-42-1309Qridvid encounter procedureDO Christina Jarvis Work Phone: [facility] [place] Work Phone: Start: 05-24-2024 End: 80-64-4509devlzpluzyBL David Girvin Work Phone: [facility] Work Phone: Start: 05-24-2024 End: 54-93-5805Dcoaxeh encounter procedureDO Christina Jarvis Work Phone: [facility] [place] Work Phone: Start: 14-08-9528Jda-patient / Non-visitDO Christina Jarvis Work Phone: [facility] [place] Work Phone: Start: 05-18-2023 End: 99-57-2106xercthnriyEapux Girvin Other [employer] Other Start: 40-40-6929Rbrdckmbe encounterDaifeanyi [facility] [place]Start: 02-04-2023 End: 93-34-9710ysfklimutyNX David Matheus Work Phone: [facility] Work Phone: Start: 02-04-2023 End: 59-87-6880Pdfpwgn encounter procedureDO Christina Jarvis Work Phone: [facility] [place] Work Phone: Start: 01-28-2023 End: 95-69-1883kpukulowwhXmbdm Girvin Other [employer] Other Start: 38-71-0804Awrfyniqj encounterDavikaron Cole [facility] [place]vueStart: 12-22-2022 End: 26-45-7702pwhdjtnhraOY MARY MAY .Facility:E5Ocruy: 10-11-2022 End: 25-61-1970tcjjenpfesHhskz Girvin Other [employer] Other Start: 21-08-7022Kuqeqfhzl encounterDavikaron Cole [facility] [place]vueStart: 09-29-2022 End: 49-10-8041ixxndjrhryWbrge Girvin Other [employer] Other Start: 64-42-7329Prbvertvb encounterDavikaron CunninghamG [facility] BellevueStart: 01-08-2022 End: 83-67-8451migkuxoynhMxnny Girvin Other [employer] Other Start: 97-77-2021Pamtbx outpatient visit 25 minutes Christina Cole [facility] [place]vueStart: 01-02-2019 End: 64-73-5154Ofsxdte encounter procedureGREGORY OTTOFacility:[facility]ENTERtart: 11-27-2018 End: 42-58-9402Rkfzdwn encounter procedureGREGORY OTTOFacility:[facility]ENTERtart: 10-18-2018 End: 43-69-3262Tdoeikz encounter procedureGREGORY OTTOFacility:[facility]ENTERtart: 10-01-2018 End: 03-91-8001Eezjbhecmi and management of inpatientNABIL EBRAHEIMFacility:[facility] Procedures DateProcedureProcedure DetailPerforming ClinicianStart: 89-52-7251Ftetx culture Christina Jarvis Work Phone: Start: 99-80-7705Jknkedlj screenNABIL EBRAHEIMComment on above:Performed By: #### [id number] #### [facility] [address] [place] [address], USAStart: 15-73-3856YQACXHE OF SYNTH SUB FROM L HIP JT, FEMORAL, OPEN APPROACHNABIL EBRAHEIMStart: 56-24-0439MRZHDVF L HIP JT, FEMORAL W METAL, UNCEMENT, OPENNABIL EBRAHEIMStart: 60-37-7199BRUAPATJZF LEFT FEMORAL SHAFT WITH INT FIX, OPEN APPROACHNABIL EBRAHEIMStart: 46-53-7291Bdpadnar screen PETE EBRAHEIMComment on above:Performed By: #### [id number] #### [facility] [address] [place] [address], USAStart: 66-75-5409IWZMRXVZI NONAUT RED BLOOD CELLS IN PERIPH VEIN, PERCNABIL EBRAHEIM Plan of Treatment DateCare ActivityDetailAuthorStart: 47-20-5504Xhgxhjqi identified in Urine by CultureUrine [facility] Daytontart: 16-34-4046Dgito Genesis Hospitaltart: 92-39-0416Ctyhhnfp identified in Urine by [facility] Daytontart: 79-22-5551Bapwaehj identified in Urine by [facility] HospitalBacteria identified in Urine by [facility] HospitalComprehensive metabolic 1999 panel - Serum or PlasmaMer[facility] Comprehensive metabolic 2000 panel - Serum or PlasmaMercy Health Tiffin HospitalGlucose measurement estimated from glycated hemoglobinMercy Health Tiffin HospitalGlucose measurement estimated from glycated hemoglobinMercy Health Tiffin HospitalGlucose measurement estimated from glycated hemoglobin [facility] HospitalHemoglobin A1c/Hemoglobin.total in Blood [facility] HospitalHemoglobin A1c/Hemoglobin.total in Blood [facility] HospitalUrine cultureKaiser Foundation Hospital Immunizations Immunization DateImmunizationNotesCare CsjxufacLucysley02-85-6732RUKBF-46 Comirnaty (Pfizer) Tri-Sucrose 12+[facility]10-22-2024 influenza, high dose seasonal, preservative-freeMercy Health Tiffin Hospital01-04-2024RSV, preF3, adj, pfMercy Health Tiffin Hospital10-02-2023 COVID-19 (PFIZER) 12Y and olderMercy Health Tiffin Hospital 43-78-6963Zpawhejmi vaccine, quadrivalent, adjuvantedMercy Health [facility]iffin Hospital09-22-2022COVID-19 mRNA Bivalent Booster (Pfizer)[facility]09-22-2022Fluzone QIV High-Dose 65YR+[facility]03-18-2022Shingrix 50 MCG/0.5ML; Translations: [Shingrix 50 MCG/0.5ML] Christina Jarvis Other [employer] Other [id number]-51 Vaccine Pfizer - Documentation Purposes OnlyChristina Jarvis Other [facility]09-20-2021influenza, seasonal, injectableDaifeayni Jarvis Other [facility]09-20-2021Fluzone QIV High-Dose 65YR+[facility]02-23-2021COVID-19 Vaccine Pfizer - Documentation Purposes OnlyChristina Jarvis Other [facility]02-02-2021COVID-19 Vaccine Pfizer - Documentation Purposes OnlyChristina Jarvis Other [address] [place], [place] 5235609-17-2020Seasonal trivalent influenza vaccine, adjuvanted, preservative [facility]09-17-2020influenza, seasonal, injectableDavid Girvin Other [address] [place], [place] 5235610-09-2019influenza, seasonal, injectableDavid Girvin Other [address] [place], [place] 5235610-09-2019influenza, high dose seasonal, preservativeTriHealth [facility]10-17-2018 influenza, high dose seasonal, preservativeTriHealth Bethesda [facility] Hospital10-17-2018influenza, seasonal, injectableDavid Girvin Other [address] [place], [place] 5235610-13-2017influenza, high dose seasonal, preservativeTriHealth [facility]hesda [facility] Hospital11-07-2016 influenza, seasonal, injectableDavid Girvin Other [address] [place], [place] 5235611-04-2016 pneumococcal conjugate vaccine, 13 valentDavid Girvin Other [address] [place], [place] 5235610-20-2015 pneumococcal polysaccharide vaccine, 23 valentDavid Girvin Other [address] [place], [place] 5235610-03-2014zoster vaccine, liveDavid Girvin Other [address] [place] [address] Payers DatePayer CategoryPayerPolicy [id number] [id number] .[id number] Health DykeatrumLSUZKIQG94-90-7116Dphdpbe [id number] .[id number] .1.509956.3.57[id number] 2.0.1.743226.3.57[id number] 2.0.1.724487.3.57[id number] 2.0.1.47[id number] 2.0.1.1[id number] 2.0.1.492961.3.579.2.531 Social History DateTypeDetailFacilityUnknown if ever smokedStockdale [employer] Other Sex Assigned At BirthSex Assigned At AcompliBlue [employer] Other Start: 26-94-1785Ywg Assigned At [facility] Southtart: 02-07-2023 End: 10-50-0911Bgpntxe smoking status NHISNever smoked tobacco (finding) [facility] Centertart: 78-86-9608XygHourqq (finding)[facility] Clinical Notes 02-12-2021 to 05-18-2023 Note Date & ScdzOgzaBxfodzvq46-58-0680 Evaluation note* Encounter Date Diagnosis Assessment Notes Treatment Notes Treatment Clinical Notes Apr, Gastritis (ICD-10 - K29.70) [employer] Other [id number] Evaluation note* Encounter Date Diagnosis Assessment Notes Treatment Notes Treatment Clinical Notes Jan, Hypertension (ICD-10 - I10) Jan,Hyperlipidemia (ICD-10 - E78.5) Jan,Hyperglycemia (ICD-10 - R73.9) Jan,Weight loss (ICD-10 - R63.4) Jan,Hematuria (ICD-10 - R31.9) Jan,Other alf (current) drug therapy (ICD-10 - Z79.899) [employer] Other 03-18-2022 Evaluation note* Encounter Date Diagnosis [...] 2.16 which is normal. 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 Thornton. I did recommend that she get the Shingrix vaccine series. She can obtain this at her local pharmacy. A prescription was provided. [employer] Other 880924-59-4256 Note [id number]#1.00CD:127[facility] 02-12-2021 NoteCystoscopy ? Voiding after the [...] if you have a fever over 100 degrees.[facility] Evaluation noteNo InformationNortUPMC [facility] Diligent Board Member Services Other Evaluation noteNo assessment information available [facility] Work Phone: Evaluation note* Diagnosis Onset Date Resolution Status Depression acuteGastritisacuteHematuriaacuteHyperglycemiaacuteHyperlipidemiaacute Hypertensionacute [facility] Work Phone: Evaluation note* Diagnosis Onset Date Resolution Status Admit Date Balance problem acuteAugust 2024 9:14amDepressionacuteAugust 2024 9:14amGastritis acuteAugust 2024 9:14amHematuriaacuteAugust 2024 9:14amHyperglycemia acuteAugust 2024 9:14amHyperlipidemiaacuteAugust 2024 9:14am HypertensionacuteAugust 2024 9:14amIntentional weight lossacuteAugust 2024 9:14am [facility] Work Phone: History general Narrative - Reported* Type Description Date Medical History Last Pap 2010; Dr. Gonsalez Medical HistoryLast Mammogram ; [facility] (normal)Medical History No history of Stress Test, Colonoscopy or CT of the Abdomen or PelvisMedical HistoryLast EKG around age 19 before surgeryMedical HistoryNo history of FracturesMedical HistoryHistory of Chicken Pox as a ChildMedical History Mamm[facility] 08-15-13; [facility]Medical HistoryFlu Vaccine and Pneumonia Vaccine 2014Medical HistoryPt has O positive bloodSurgical HistoryT & A as a childSurgical Historybilateral breast biopsies; all were benignSurgical HistoryLeft knee replacement, Dr. RandallZnbkhkig02-1-4054Uaqwljwp Historyrt knee replacement Dr Randall02/11/urgical HistoryMRI of back - Dr HolbrookKxojebi5724 Surgical HistoryXR of hip - Dr RandallWtojbdvt0175Zhaaotkx HistoryPain clinic - injection left bgk8978Rimxanjp Historymammogram -08/2016Surgical Historyhip inj Dr Randall10/2017Surgical Historymammogram01/2018Surgical HistoryCT with contrast 08/24/18urgical Historyleft hip goolrgkwmcp59/5/2018Surgical Historyfemur fracture rghwnky48/8/2018Surgical HistoryCystoscopy - Dr. Acosta02/12/21 Hospitalization Historysee above [employer] Other History general Narrative - Reported* Type Description Date Medical History Last Pap 2010; Dr. Gonsalez Medical HistoryLast Mammogram ; [facility] (normal)Medical History No history of Stress Test, Colonoscopy or CT of the Abdomen or PelvisMedical HistoryLast EKG around age 19 before surgeryMedical HistoryNo history of FracturesMedical HistoryHistory of Chicken Pox as a ChildMedical History Mammogram 08-15-13; [facility] CenterMedical HistoryFlu Vaccine and Pneumonia Vaccine 2014Medical HistoryPt has O positive bloodSurgical HistoryT & A as a childSurgical Historybilateral breast biopsies; all were benignSurgical HistoryLeft knee replacement, Dr. RandallYroiuxzk41-7-4844Ionooifx Historyrt knee replacement Dr Randall02/12/16urgical HistoryMRI of back - Dr HolbrookDzmgflu8956 Surgical HistoryXR of hip - Dr RandallIrredjbs8498Lkxfumyi HistoryPain clinic - injection left vjt7401Xdcpgthe Historymammogram -08/2016Surgical Historyhip inj Dr Randall10/2017Surgical Historymammogram01/2018Surgical HistoryCT with contrast 08/24/18urgical Historyleft hip rozowlvhjoi85/5/2018Surgical Historyfemur fracture ryiroej48/8/2018Surgical HistoryCystoscopy - Dr. Acosta02/12/21Surgical HistoryCatartact surgeryurgical HistoryColonoscopy (colon polyp) & EGD Dr. May / see report/ repeat colonoscopy 5 years 57531-4-08Btrmrfcwtriwvzp Historysee above [employer] Other Reason for referral (narrative)* Reason appt referral for colonoscopy/positive FIT Diagnosis 1 Positive occult stoo l blood test (R19.5) Referral Organization [facility] [place] Referring Provider First Name Christina Referring Provider Last Name Matheus Referring Provider Specialty Family Prac alban Referred Organization [facility] Referred Provider Polo Lyn Referred Address [address],[address] Referred Provider Specialty Gastroentero logy Referral Priority Routine General Notes Mary Ann Maurer 09/29/2022 03:45:56 PM > referral sent p2p. pt understands that she will be contacted to schedule this appt. [employer] Other Reason for referral (narrative)No reason for referral information availableSelect [facility] Work Phone: Summary Purpose Family History No [...] 023 8:27am Hospital Course Note MR#: [id number] [facility] Pt. Name: Kayleigh Brown Admitted: 10/01/2018 [...] and content) DATE CREATED AUTHOR 01/10/2019 [facility] DATE CREATED AUTHOR AUTHOR'S ORGANIZ ATION 03/16/2021 [facility] DATE CREATED AUTHOR AUTHOR'S ORGANIZ ATION 12/31/2022 [facility] DATE CREATED AUTHOR AUTHOR'S ORGANIZ ATION 08/30/2025 [facility] REASON FOR VISIT (unrecogniz ed [...] Active S tart: March 08, 2024 Saiard Luxora , LPNAttending ProviderActiveStart: March 08, 2024 Team [...] BE BASED ON THE PRIMARY CLINICAL RECORDS. [employer] provides no warranty or guarantee of the accuracy or completeness of information in this document.
--- OUTSIDE RECORDS SUMMARY | 2025-09-24 00:07 | XMS_ITS | Clinical Summary ---
Author Organization [facility] Address [address] [place] [address] Care Team Providers Care Storage Solutions Architect Name Role Phone Unavailable Primary Care Provider Unavailabl e Social History Tobacco UseTypesPacks/DayYears UsedDateSmoking Tobacco: Never Assessed CommentsUnknownSex and Gender InformationValueDate RecordedSex Assigned at Not on fileLegal DajXodish68/15/2023 7:30 PM EDTGender IdentityNot on fileSexual OrientationNot on file Last Filed Vital Signs Vital SignReadingTime TakenCommentsBlood Pressure--Pulse--Temperature-- Respiratory Rate--Oxygen Saturation--Inhaled Oxygen Concentration--Wxivol33.2 kg (212 lb)05/07/2020 12:00 PM HAMFkydkp815.3 cm (5' 9 )05/07/2020 12:00 PM EDTBody Mass Index31.31005/07/2020 12:00 PM EDT Plan of Treatment Not on file
--- OUTSIDE RECORDS SUMMARY | 2025-09-24 00:07 | XMS_ITS | Clinical Summary ---
Author Organization [facility] Address [address] [place], [place] [address] Care Team Providers Care Tire Layer Name Role Phone Roberto Marino DO Primary Care Provider [phone] Social History Tobacco UseTypesPacks/DayYears UsedDateSmoking Tobacco: Never Assessed CommentsUnknownSex and Gender InformationValueDate RecordedSex Assigned at Not on fileLegal TibNbqwwo93/28/2017 8:59 AM EDTGender IdentityNot on fileSexual OrientationNot on file Plan of Treatment Health MaintenanceDue DateLast DoneCommentsAnxiety Jiivuzjqj57/04/1967Depression Zxdtmeqds60/04/1967Hepatitis C Yzpkjsauz10/04/1967DTaP,Tdap,Td Vaccine (1 - Tdap)1968Diabetes Fezxajdbj00/04/1994Pneumococcal Vaccine: 50+ (1 of 1 - PCV)1999Shingrix Vaccine (1 of 2)1999Bone Density Screening 2014RSV Vaccine (1 - 1-dose 75+ series)2024dvance Directive Ehygrrhzvk62/01/2025ovid-19 Vaccine ( - 2024-26 season)2025Influenza Vaccine (#1)2025 Insurance * Guarantor: Chandni Martínez TypeRelation to PatientDate of BirthPhone Billing AddressPersonal/CaglmxBryu1950 [id number] [place] [address] Care Teams Team MemberRelationshipSpecialtyStart DateEnd Date Roberto Marino DO [address] [place] [address] PCP - Generalmi Medicine04/20/17
--- OUTSIDE RECORDS SUMMARY | 2025-09-24 00:07 | XMS_ITS | Encounter Summary ---
Author Organization [facility] Address [address] [place] [address] Phone Care Team Providers Care Animal Health Technician Name Role Phone Roberto Marino DO Primary Care Provider [phone] Encounter Details DateTypeDepartmentCare Team (Latest Contact Info)Ezfvqniffwj17/30/2025Travel Social History Tobacco UseTypesPacks/DayYears UsedDateSmoking Tobacco: Never Assessed CommentsUnknownSex and Gender InformationValueDate RecordedSex Assigned at Not on fileLegal GqdVgvarc18/13/2025 8:26 AM ESTGender IdentityNot on fileSexual OrientationNot on filedocumented as of this encounter Plan of Treatment DateTypeDepartmentCare Team (Latest Contact Info)Yjtmdxszrdc40/03/2025 2:10 PM ESTOffice Visit [place] [address] [address] [address] Ramirez Swift MD [facility], [address] [address] documented as of this encounter Visit Diagnoses Not on filedocumented in this encounter Care Teams Team MemberRelationshipSpecialtyStart DateEnd Date Roberto Marino DO [address] [place] [address] PCP - GeneralFamily Xezqjcfp12/17/25documented as of this encounter
[2025-09-24] MEDS: 0.9 % SODIUM CHLORIDE 1,000 ML 999 ML IV (00:31)
[2025-09-24 00:37] LABS: Glucose Urine UA NEGATIVE (NEGATIVE)
[2025-09-24 00:46] LABS: Cast Seen? NONE SEEN #/LPF (NONE SEEN); Crystals Seen? None Seen #/HPF (None Seen); Urine Culture Indicated NO
--- NOTE | 2025-09-24 01:19 | PC.NURSE ---
Pt remains A & O x 4. Denies c/o at this time. Playing games on her cell phone.
[2025-09-24 01:53] LABS: Anion Gap 9.5; Blood Urea Nitrogen 20.0 mg/dL (7.0-18.0); Calcium 9.4 mg/dL (8.5-10.1); Carbon Dioxide 27.1 mmol/L (21.0-32.0); Chloride 106 mmol/L (98-107); Estimated GFR (African America >60 (>=60 mL/min/1.73m^2); Estimated GFR (Non-African Ame >60 (>=60 mL/min/1.73m^2); Glucose 131 mg/dL (74-106); Potassium 4.6 mmol/L (3.5-5.1); Sodium 138 mmol/L (136-145)
[2025-09-24 02:00] LABS: Lactate/Lactic Acid 1.3 mmol/L (0.4-2.0)
[2025-09-24 02:06] LABS: Hematocrit 27.7 % (36.0-48.0); Hemoglobin 8.8 g/dL (12.0-16.0); Immature Granulocytes Abs Auto 0.02 10^3/uL (0.00-0.03); Immature Granulocytes Pct Auto 0.3 % (0.0-0.5); Lymphocytes Absolute Auto 0.7 10^3/uL (1.2-3.8); Mean Corpuscular HGB Conc 31.8 g/dL (29.9-35.2); Mean Corpuscular Hemoglobin 29.2 pg (26.7-34.0); Mean Corpuscular Volume 92.0 fL (81.0-99.0); Platelet Count 285 10^3/uL (150-450); Red Blood Count 3.01 10^6/uL (4.20-5.40); White Blood Count 6.3 10^3/uL (4.0-11.0)
--- OUTSIDE RECORDS SUMMARY | 2025-09-24 05:05 | XMS_ITS | CCD ---
Author Organization [facility] Care Team Providers Care Clinical Researcher Name Role Phone BEVERLY GARCIAIL Admitting Unavailable BEVERLY GARCIAIL Attending Unavailable CHRISTINA JARVIS Referring Unavailable CHRISTINA JARVIS Primary Care Unavailable MS Procedure Practitioner Unavailab le PETE GARCIA Surgeon [...] Care Provider DO Christina Jarvis Attending Provider [phone] DO Christina Jarvis Primary Care Provider DO Christina Jarvis Attending Provider Christina Jarvis DO Primary Care Provider [phone] Christina Jarvis DO Attending Provider Christina Jarvis Attending Unavailable Christina Jarvis Admitting Unavailable Christina Jarvis Primary Care Unavailable Christina Jarvis Attending Unavailable Christina Jarvis Admitting Unavailable Christina Jarvis Primary Care Unavailable Allergies Allergy ClassificationReported Allergen(s)Allergy TypeDate of OnsetReaction(s) Facility (5 sources)Acetaminophen / HYDROcodoneDrug Allergyhives?Shuropody Other (10 sources)atorvastatinDrug Pswpdje10-69-0384vrp painUc Health (10 sources)ezetimibeDrug Anajhws34-74-8788osch't likeUc Health (6 sources)Acetaminophen; Translations: [acetaminophen]Drug Xhfruen52-91-4998 hives?[facility] (6 sources)HYDROcodone; Translations: [hydrocodone]Drug Chfvplp24-98-6588vyfzk? [facility] (1 source)atorvastatinDrug Bedyhym93-27-7458CkjyyqjvhUc Health Repository (1 source)ezetimibeDrug Vregzyj30-58-5511DubeqdrgbUc Health Repository Medications Current Medications MedicationDrug Class(es)DatesSig [...] ActiveLifitegrast (Xiidra) 5 % dropperette (2 sources)Start: 65-59-8815Erugrrwczsm (Xiidra) 5 % dropperette Active DROPS OPHTHALMIC May 27, 2024 11:00pmStart: 71-07-9169Wrdctmafhys (Xiidra) 5 % dropperette Active DROPS OPHTHALMIC May 28, 2024 12:00amlosartan potassium 50 mg oral tablet (20 sources)Angiotensin 2 Receptor BlockerStart: 36-21-0891cmaq 1 tablet by mouth once dailyStart: 06-07-2024 End: 29-37-5230nhgh 1 tablet by mouth once dailyLosartan 50 mg tablet Discontinued 0 .ROUTE .COMPLEX May 14, 2025 2:21pm June 12, 2025 9:3 0am TAKE 1 TABLET BY MOUTH EVERY DAYStart: 03-08-2024 End: 30-55-0688ebzw 1 tablet by mouth once dailyLosartan 50 mg tablet Discontinued 50 MG PO Daily March 08, 2024 10:23am June 07, 2024 9:22am Losartan Potassium 50 mg TAKE 1 TABLET DAILY ZjwjpwEanvilmk-Xly-Yfbx-Fa-Vit K- Lut (Centrum Silver Women) 8 mg iron-400 mcg-50 mcg tablet (4 sources)Start: 16-08-4285yqjf 1 tablet by mouth once daily Mlmwbuaj-Xan-Gont-Fa-Vit K-Lut (Centrum Silver Women) 8 mg iron-400 mcg-50 mcg tablet Active 1 TAB PO Daily May 28, 2024 12:00am Complies with drug therapy Start: 71-48-0913dgft 1 tablet by mouth once dailyStart: 27-41-7240zbmt 1 tablet by mouth once mgewaRerhwqus-Hre-Akpg-Fa-Vit K-Lut (Centrum Silver Women) 8 mg iron-400 mcg-50 mcg tablet Active 1 TAB PO Daily May 27, 2024 11:00pmStart: 24-77-0150hhms 1 tablet by mouth once eiffcSpfnddnv-Riz-Fnfv-Fa-Vit K-Lut (Centrum Silver Women) 8 mg iron-400 mcg-50 mcg tablet Active 1 TAB PO Daily May 28, 2024 12:00amomeprazole 40 mg delayed release oral capsule (20 sources)Proton Pump InhibitorStart: 05-28-2024 End: 58-72-3207Kqpnaidmpc 40 mg capsule,delayed release(DR/EC) Active 40 MG PO .COMPLEX August 01, 2024 8:13am 40 mg orally TAKE 1 CAPSULE BY MOUTH EVERY DAY 30 MINUTES BEFORE MORNING MEAL; Complies with drug therapyStart: 05-01-2024 End: 87-78-9079Iqortjbgvk 40 mg capsule,delayed release(DR/EC) Discontinued 0 .ROUTE .COMPLEX May 01, 2024 12:00pm May 28, 2024 2:56pm TAKE 1 CAPSULE BY MOUTH EVERY DAY 30 MINUTES BEFORE MORNING MEAL FOR 90 DAYSStart: 02-20-2024 End: 05-54-1696rtws 1 capsule by mouth once daily at mealtimeOmeprazole 40 mg capsule,delayed release(DR/EC) Discontinued 40 MG PO Daily February 20, 2024 3:05pmJuly 2023 12:00pm 30 min prior to a mealStart: 02-20-2024 End: 42-42-7921ofzr 1 capsule by mouth every other day at mealtimeOmeprazole 40 mg capsule,delayed release(DR/EC) Discontinued 40 MG PO .QOD February 20, 2024 12:00amApril 2023 3:05pm 30 min prior to a mealOmeprazole 40 MG 1 capsule 30 min prior to a meal Orally qod Activerosuvastatin calcium 5 mg oral tablet (20 sources)HMG-CoA Reductase InhibitorStart: 17-35-1451dchg 1 tablet by mouth every other dayStart: 06-06-2024 End: 63-91-0981nfln 1 tablet by mouth every other dayRosuvastatin 5 mg tablet Discontinued 0 .ROUTE .COMPLEX May 14, 2025 2:21pm June 1259:30am TAKE 1 TABLET BY MOUTH EVERY OTHER DAYStart: 03-08-2024 End: 72-01-0505tfrv 1 tablet by mouth every other dayRosuvastatin [...] Zoster Virus Nucleoside Analog DNA Polymerase InhibitorStart: 59-74-3920ppoz 1 tablet by mouth every eight hoursValtrex 1 GM 1 tablet Orally tid for 7 days Jan, Xedlzb23 hr venlafaxine 150 mg extended release oral tablet (20 sources)Serotonin and Norepinephrine Reuptake InhibitorStart: 39-62-6133opil 1 capsule by mouth once dailyVenlafaxine 75 mg capsule,extended release 24hr Active 75 MG PO daily June 12, 2025 12:00am Complies with drug therapyStart: 08-31-2024 End: 51-43-9937tyjv 1 capsule by mouth once daily in the morningVenlafaxine 150 mg capsule,extended release 24hr Discontinued 150 MG PO Every morning August 1:00am June 12, 2025 9:22amStart: 05-28-2024 End: 25-95-8031bmbp 1 tablet by mouth once dailyVenlafaxine 150 mg tablet extended release 24hr Active 150 MG PO Daily June 12, 2025 9:24am Dr Arnett Complies with drug therapyStart: 05-28-2024 End: 53-88-3436trph 1 capsule by mouth once dailyVenlafaxine 75 mg capsule,extended release 24hr Discontinued 75 MG PO Daily May 28, 2024 12:00am August 31, 2024 12:43pmtake 1 tablet by mouth every twenty-four hours Venlafaxine HCl ER 150 MG 1 tablet with food Orally Once a day Active Completed/Discontinued Medications MedicationDrug Class(es)DatesSig (Normalized)Sig (Original)busPIRone hydrochloride 15 mg oral tablet (17 sources)Start: 05-28-2024 End: 71-99-3865zwfs 1 tablet by mouth twice daily, then [...] (2 sources)Lymphocyte Function-Associated Antigen-1 AntagonistStart: 05-28-2024 End: 14-64-9539Ecwdodttxpm (Xiidra) 5 % dropperette Discontinued DROPS OPHTHALMIC May 28, 2024 12:00am June 12, 2025 9:21am Problems Active Problems Problem ClassificationProblemDateDocumented DateEpisodic/ChronicComplications of surgical procedures or medical care (3 sources)Periprosthetic fracture around internal prosthetic left hip joint, initial encounter; Translations:[PERIPROSTH FRACTURE AROUND INTERNAL PROSTH L HIP JT, INIT]Onset: 37-74-2944Hslystwx mellitus without complication (9 sources)Hyperglycemia, unspecified; Translations: [Hyperglycemia]Onset: 01-08-2022 Resolved: 58-56-3828MeiaqzhdQwmkvvog of white blood cells (5 sources)Decreased blood leukocyte number; Translations: [Decreased white blood cell count, unspecified]ChronicDisorders of lipid metabolism (15 sources)Hyperlipidemia; Translations: [Hyperlipidemia, unspecified]Onset: 01-08-2022 Resolved: 08-37-3196GrtsgxeGctcesygv of lipid metabolism (1 source)Pure hypercholesterolemia, unspecified; Translations: [PURE HYPERCHOLESTEROLEMIA, UNSPECIFIED]Onset: 79-87-8235Eerwqejqdjkrnu and diverticulitis (1 source)Diverticulosis of large intestine without perforation or abscess without bleeding; Translations: [DVRTCLOS LG INT NO PERF/ABSC W/O BL]Onset: 61-27-7812AtdesnqEtddawxgw hypertension (15 sources)Essential (primary) hypertension; Translations: [Hypertensive disorder]Onset: 10-01-2018 Resolved: 03-31-6890DnqflckNkvthinm of lower limb (4 sources)Unspecified fracture of left femur, subsequent encounter for closed fracture with routine healing; Translations: [UNSP FRACTURE OF LEFT FEMUR, SUBS FOR CLOS FX W ROUTN HEAL]Onset: 70-77-9597NfduarrbPncqogvkt and duodenitis (1 source)Unspecified chronic gastritis without bleeding; Translations: [UNS CHRONIC GASTRITIS W/O BLEEDING]Onset: 61-63-9413LaxhqgbObnwcpncf and duodenitis (8 sources)Gastritis; Translations: [Gastritis, unspecified, without bleeding] EpisodicGastroduodenal ulcer (except hemorrhage) (1 source)Gastric ulcer, unspecified as acute or chronic, without hemorrhage or perforation; Translations: [GASTR ULCR UNS AC/CHRN W/O HEM/PERF]Onset: 96-00-8920UivxuekJgrgpxgpgoijk symptoms and ill-defined conditions (9 sources)Hematuria, unspecified; Translations: [Blood in urine]Onset: 01-08-2022 Resolved: 35-29-0505RelluqphGznh disorders (12 sources)Major depressive disorder, single episode, unspecified; Translations: [Depression]Onset: 01-08-2022 Resolved: 63-41-4582WgnyeziPueq disorders (2 sources)Major depressive disorder, single episode, unspecified; Translations: [Mood disorders]Onset: 73-24-7892Couxazyxhzgooy (8 sources)Unilateral primary osteoarthritis, right hip; Translations: [Unilateral primary osteoarthritis, right knee]Onset: 13-03-1501JjvoudzZatoi aftercare (4 sources)Other group home (current) drug therapy; Translations: [OTH GROUP HOME CURRENT DRUG THERAPY]Onset: 01-08-2022 Resolved: 74-58-8082CgrguyqcFixwe aftercare (2 sources)Removal of sutures done; Translations: [Encounter for removal of sutures]84-71-4427GnkhqjsqWhjrd and unspecified benign neoplasm (1 source)Benign neoplasm of sigmoid colon; Translations: [BENIGN NEOPLASM OF SIGMOID COLON]Onset: 55-71-2221UjsdsqqgIhwpy and unspecified benign neoplasm (1 source)Benign neoplasm of transverse colon; Translations: [BENIGN NEOPLASM OF TRANSVERSE COLON]Onset: 37-66-0387DnzpbqekLkplz and unspecified benign neoplasm (1 source)Polyp of stomach and duodenum; Translations: [POLYP OF STOMACH AND DUODENUM]Onset: 44-44-6738JatkixuvKwuom connective tissue disease (2 sources)Presence of left artificial hip joint; Translations: [PRESENCE OF LEFT ARTIFICIAL HIP JOINT]Onset: 85-72-4205AhnmkerLlwxa connective tissue disease (2 sources)Other specified soft tissue disorders; Translations: [OTHER SPECIFIED SOFT TISSUE DISORDERS]Onset: 12-63-8958HmyindjvEjqkh gastrointestinal disorders (4 sources)Other fecal abnormalities; Translations: [OTHER FECAL ABNORMALITIES] Onset: 50-35-2987CsjscfrbJvrzs nervous system disorders (2 sources)Impairment of balance; Translations: [Other abnormalities of gait and mobility]18-05-3397XbgecljeDtkvd nervous system disorders (1 source)Other abnormalities of gait and mobility; Translations: [Other abnormalities of gait and mobility]Onset: 40-65-0723YtcvhfswCaeqs nutritional; endocrine; and metabolic disorders (1 source)Obesity, unspecified; Translations: [OBESITY UNSPECIFIED]Onset: 84-54-7196IfmbavoKdytb nutritional; endocrine; and metabolic disorders (1 source)Body mass index (BMI) 33.0-33.9, adult; Translations: [BODY MASS INDEX BMI 33.0-33.9 ADULT]Onset: 11-89-6555NhrgbwzCvhyy nutritional; endocrine; and metabolic disorders (3 sources)Abnormal weight loss; Translations: [Abnormal weight loss]Onset: 01-08-2022 Resolved: 62-57-1645HmlmczptSlzxh nutritional; endocrine; and metabolic disorders (2 sources)Intentional weight fwxm34-84-8815GobiedzaYgkfj screening for suspected conditions (not mental disorders or infectious disease) (5 sources)Abnormal findings on diagnostic imaging of breast; Translations: [Other abnormal and inconclusive findings on diagnostic imaging of breast] EpisodicSpondylosis; intervertebral disc disorders; other back problems (1 source)Spondylosis without myelopathy or radiculopathy, lumbar region; Translations: [SPONDYLOSIS W/O MYELOPATHY OR RADICULOPATHY, LUMBAR REGION]Onset: 23-38-1579QmhkdwiAipzhtgzkkmf (1 source)LEFT PERIPROSTHETIC FRACTUREOnset: 43-61-9222Jmifiibjwebj (1 source)LEFT FEMUR FXOnset: 21-23-5907Jogdjmoqappb (1 source)ESOPHAGITIS UNSPEC WITHOUT BLEEDING; Translations: [ESOPHAGITIS UNSPEC WITHOUT BLEEDING]Onset: 12-29-2022 Past or Other Problems Problem ClassificationProblemDateDocumented DateEpisodic/ChronicComplication of device; implant or graft (1 source)Fracture of femur following insertion of orthopedic implant, joint prosthesis, or bone plate, left leg; Translations: [FX FEMUR FOL INSRT ORTHO IMPLNT/PROSTH/BONE PLT, LEFT LEG]Onset: 15-26-1692SeqjotrqTntohwymxq and other anemia (1 source)Anemia, unspecified; Translations: [ANEMIA, UNSPECIFIED]Onset: 19-73-5068OexofvmlHytdn and electrolyte disorders (1 source)Hypo-osmolality and hyponatremia; Translations: [HYPO-OSMOLALITY AND HYPONATREMIA]Onset: 41-09-3040XhoqmoooByymp connective tissue disease (1 source)Pain in unspecified footOnset: 01-08-2022 Resolved: 61-54-4773Jqqvlkzk Results Test NameValueInterpretationReference HwxnxPcdpgarjQ1P with Estimated Average Gluon 90-18-1111Hyjimfj [Mass/Vol]111 mg/dLNormBlanchard Valley Health Systeme [facility] [place] [facility] Comment on above:Result Comment: PERFORMED BY: [place] [address] PATHOLOGIST SELF PROPELLED HOT MIX ROLLER OPERATOR CHAMP COATES M.D.Performed By: #### CUU, ADDONUAPLUS, A1C WTH eA, CBC, CMP, LIPID, TSH3 #### [address] Price StreetAlanine aminotransferase [Enzymatic activity/volume] in Serum or PlasmaOrdered By: Christina Jarvis on 26-56-0414QHL [Catalytic activity/Vol]19 U/LNormal7-52Uc HealthComment on above: Performed By: #### CUU, ADDONUAPLUS, A1C WTH eA, CBC, CMP, LIPID, TSH3 #### [facility] [address] [place] [address] USAAlbumin [Mass/volume] in Serum or Plasma by Bromocresol green (BCG) dye binding methoOrdered By: Christina Jarvis on 57-66-2277Rkmrqzz BCG dye [Mass/Vol]4.2 g/dL3.5-5.7FHolzer HospitalAlkaline phosphatase [Enzymatic activity/volume] in Serum or PlasmaOrdered By: Christina Jarvis on 77-18-6815YVN [Catalytic activity/Vol]78 U/QFrmvmz68-072IlgnzsharUc HealthComment on above:Performed By: #### CUU, ADDONUAPLUS, A1C WTH eA, CBC, CMP, LIPID, TSH3 #### [facility] [address] [place] [id number] USAAppearance of UrineOrdered By: Christina Jarvis on 06-10-2025 Appearance (U)ClearNormalClearUc HealthComment on above: Order Comment: Name Collection Type:: Clean-Voided MidstreamPerformed By: #### CUU, ADDONUAPLUS, A1C WTH eA, CBC, CMP, LIPID, TSH3 #### [facility] [address] [place] [address] USAAspartate aminotransferase [Enzymatic activity/volume] in Serum or PlasmaOrdered By: Christina Jarvis on 44-53-1079WXT [Catalytic activity/Vol]21 U/DJhopoz47-75HftfaihjkUc HealthComment on above: Performed By: #### CUU, ADDONUAPLUS, A1C WTH eA, CBC, CMP, LIPID, TSH3 #### [facility] [address] [place] [address] USABacteria [Presence] in Urine by AutomatedOrdered By: Christina Jarvis on 71-25-3597Bgcomxpq Auto Ql (U)None seen [HPF]None SeenFirelands Regional Medical CenterBasophils [#/volume] in Blood by Automated countOrdered By: Christina Jarvis on 20-13-3731Mwzrvcqbv (Bld) [#/Vol]0.0 10*3/uLNormal0.0-0.2 Uc HealthComment on above:Result Comment: PERFORMED BY: [place] [address] PATHOLOGIST SELF PROPELLED HOT MIX ROLLER OPERATOR CHAMP COATES M.D.Performed By: #### CUU, ADDONUAPLUS, A1C WTH eA, CBC, CMP, LIPID, TSH3 #### [facility] [address] [place] [address] USABasophils/100 leukocytes in Blood by Automated count Ordered By: Christina Jarvis on 49-59-9586Dtoushnvc/100 WBC (Bld)0.8 %Normal. Uc HealthComment on above:Performed By: #### CUU, ADDONUAPLUS, A1C WTH eA, CBC, CMP, LIPID, TSH3 #### [facility] [address] [place] [address] USABilirubin Test strip Ql (U)Ordered By: Christina Jarvis on 93-68-6329Uipwofxgd Ql (U)NegativeNegativeUc Health Bilirubin.total [Mass/volume] in Serum or PlasmaOrdered By: Christina Jarvis on 93-10-2066Doatjraqi [Mass/Vol]0.5 mg/dLNormal0.3-1.0Uc HealthComment on above:Performed By: #### CUU, ADDONUAPLUS, A1C WTH eA, CBC, CMP, LIPID, TSH3 #### [facility] [address] [place] [address] USABlood estimated average glucose determination by estimation from glycated hemoglobinOrdered By: Christina Jarvis on 47-24-5543Gaqvirj glucose Estimated from glycated hemoglobin (Bld) [Mass/Vol]111 mg/dLUc HealthCalcium [Mass/volume] in Serum or PlasmaOrdered By: Christina Jarvis on 76-49-4671Zopvfmg [Mass/Vol]9.9 mg/dLNormal8.6-10.3FHolzer HospitalComment on above:Performed By: #### CUU, ADDONUAPLUS, A1C WTH eA, CBC, CMP, LIPID, TSH3 #### [facility] [address] [place] [address] USACarbon dioxide, total [Moles/volume] in Serum or Plasma Ordered By: Christina Jarvis on 90-06-8332XK7 [Moles/Vol]28.6 mmol/QLwihmn05.0-31.0 Uc HealthComment on above:Performed By: #### CUU, ADDONUAPLUS, A1C WTH eA, CBC, CMP, LIPID, TSH3 #### [facility] [address] [place] [id number] USAChloride [Moles/volume] in Serum or PlasmaOrdered By: Christina Jarvis on 87-40-0772Lnwrzlxf [Moles/Vol]103 mmol/RLvtobf94-840WajrclbtbUc HealthComment on above:Lipemia is present at a level that could interfere with the result.Hemolysis is present at a level that could interfere with the result.Result Comment: Lipemia is present at a level that could interfere with the result. Hemolysis is present at a level that could interfere with the result.Performed By: #### CUU, ADDONUAPLUS, A1C WTH eA, CBC, CMP, LIPID, TSH3 #### [facility] [address] [place] [id number] USACholesterol [Mass/volume] in Serum or PlasmaOrdered By: Christina Jarvis on 29-17-1642Ezpxuebxoix [Mass/Vol]158 mg/jOBrmndl252-314TjlsvhrcdUc HealthComment on above:Chol less than 200 mg/dl low riskChol 201-239 mg/dl borderline riskChol 240 mg/dl and greater high riskResult Comment: Chol less than 200 mg/dl low risk Chol 201-239 mg/dl borderline risk Chol 240 mg/dl and greater high riskPerformed By: #### CUU, ADDONUAPLUS, A1C WTH eA, CBC, CMP, LIPID, TSH3 #### [facility] [address] [place] [address] USACholesterol in HDL [Mass/volume] in Serum or PlasmaOrdered By: Christina Jarvis on 37-14-6431Bwsyzcdzkqm in HDL [Mass/Vol]45 mg/xGSgabca72-66 Uc HealthComment on above:HDL CHOL ATP-III CLASSIFICATION Cardiovascular RiskHDL > or equal to 60 mg/dL LOWHDL < 40 mg/dL HIGHResult Comment: HDL CHOL ATP-III CLASSIFICATION Cardiovascular Risk HDL > or equal to 60 mg/dL LOW HDL < 40 mg/dL HIGHPerformed By: #### CUU, ADDONUAPLUS, A1C WTH eA, CBC, CMP, LIPID, TSH3 #### [facility] [address] [place] [address] USACholesterol in LDL Calc [Mass/Vol]Ordered By: Christina Jarvis on 83-52-2344Madnatwugmp in LDL [Mass/Vol]80 mg/dL0-100Uc HealthComment on above:LDL ATP III CLASSIFICATIONLDL less than 100 mg/dL OptimalLDL 100-129 mg/dL Near or above valyerhSAH497-473 mg/dL Borderline highLDL 160-189 mg/dL HighLDL greater than 189 mg/dL Very highCholesterol in VLDL Calc [Mass/Vol]Ordered By: Christina Jarvis on 82-11-6645Kilncquzlxx in VLDL [Mass/Vol]32 mg/dLUc HealthColor of Urine by AutoOrdered By: Christina Jarvis on 53-49-6149Xsetv (U)Light-yellowNormalYellowUc HealthComment on above:Order Comment: Name Collection Type:: Clean-Voided MidstreamPerformed By: #### CUU, ADDONUAPLUS, A1C WTH eA, CBC, CMP, LIPID, TSH3 #### [facility] [address] [place] [address] USAComplete Blood Count Auto Diffon 84-49-1083Jkaa Corpuscular HGB Conc33.1 g/sZNhvptg62.0-35.0The [facility] [place] Physician GroupComment on above:Performed By: #### CUU, ADDONUAPLUS, A1C WTH eA, CBC, CMP, LIPID, TSH3 #### [facility] [address] [place] [address] USANRBC%0.2 /100{WBC}Normal0-0.5The [facility] [place] [facility] Comment on above:Performed By: #### CUU, ADDONUAPLUS, A1C WTH eA, CBC, CMP, LIPID, TSH3 #### [place] [address] USAWhite Blood Count4.3 [CFU]/mLNormal3.8-11.6The [facility] [place] Physician GroupComment on above:Performed By: #### CUU, ADDONUAPLUS, A1C WTH eA, CBC, CMP, LIPID, TSH3 #### [place] [address] USAComprehensive Metabolic Panelon 66-66-0827Ctytexo [Mass/Vol]4.2 g/dLNormal3.5-5.7The [facility] [place] Physician GroupComment on above: Performed By: #### CUU, ADDONUAPLUS, A1C WTH eA, CBC, CMP, LIPID, TSH3 #### [place] [address] USAGFR/1.73 sq M.predicted MDRD (S/P/Bld) [Vol rate/Area] mL/min/{1.73_m2}NormalThe [facility] [place] [facility] HospitalComment on above:Performed By: #### CUU, ADDONUAPLUS, A1C WTH eA, CBC, CMP, LIPID, TSH3 #### [place] [address] USACreatinine [Mass/volume] in Serum or PlasmaOrdered By: Christina Jarvis on 36-53-8622Svccwnvarn [Mass/Vol]0.82 mg/dLNormal0.60-1.20 Uc HealthComment on above:Performed By: #### CUU, ADDONUAPLUS, A1C WTH eA, CBC, CMP, LIPID, TSH3 #### [place] [id number] USADipstick and Microscopicon 36-19-6861Nsyjlkhs,UrineNone SeenNormalNone SeenThe [facility] [place] [facility] GroupComment on above:Order Comment: Name Collection Type:: Clean-Voided MidstreamPerformed By: #### CUU, ADDONUAPLUS, A1C WTH eA, CBC, CMP, LIPID, TSH3 #### [place] [address] USABilirubin,UrineNegativeNormalNegativeHca Florida Clearwater Emergency Physician GroupComment on above:Order Comment: Name Collection Type:: Clean- Voided MidstreamPerformed By: #### CUU, ADDONUAPLUS, A1C WTH eA, CBC, CMP, LIPID, TSH3 #### [place] [address] USAGlucose Ql (U)NormalNormalNormalThSyringa General Hospital Physician GroupComment on above:Order Comment: Name Collection Type:: Clean-Voided MidstreamPerformed By: #### CUU, ADDONUAPLUS, A1C WTH eA, CBC, CMP, LIPID, TSH3 #### [place] [address] USAHyaline Casts,UrineNoneNormal0-8The [facility] [place] [facility]ician GroupComment on above:Order Comment: Name Collection Type:: Clean-Voided MidstreamPerformed By: #### CUU, ADDONUAPLUS, A1C WTH eA, CBC, CMP, LIPID, TSH3 #### [place] [address] USAMucus,UrineRareNormalThe [facility] [place] Physician GroupComment on above:Order Comment: Name Collection Type:: Clean-Voided MidstreamResult Comment: PERFORMED BY: [place] [address] PATHOLOGIST SELF PROPELLED HOT MIX ROLLER OPERATOR CHAMP COATES M.D.Performed By: #### CUU, ADDONUAPLUS, A1C WTH eA, CBC, CMP, LIPID, TSH3 #### [place] [address] USANitrite,UrineNegativeNormalNegativeHca Florida Clear[facility] Emergency Physician GroupComment on above:Order Comment: Name Collection Type:: Clean-Voided MidstreamPerformed By: #### CUU, ADDONUAPLUS, A1C WTH eA, CBC, CMP, LIPID, TSH3 #### [place] [address] USAOccult Blood,Urine1+NormalNegativeThe [facility] [place] [facility]ician GroupComment on above:Order Comment: Name Collection Type:: Clean-Voided MidstreamResult Comment: PERFORMED BY: [place] [address] PATHOLOGIST SELF PROPELLED HOT MIX ROLLER OPERATOR CHAMP COATES M.D.Performed By: #### CUU, ADDONUAPLUS, A1C WTH eA, CBC, CMP, LIPID, TSH3 #### [place] [address] USAProtein,UrineNegativeNormalNegativeThe [facility] [place] Physician GroupComment on above:Order Comment: Name Collection Type:: Clean-Voided MidstreamPerformed By: #### CUU, ADDONUAPLUS, A1C WTH eA, CBC, CMP, LIPID, TSH3 #### [place] [address] USARBC,Brkst3-4Cydavb7-9Uia [facility] [place] [facility] GroupComment on above:Order Comment: Name Collection Type:: Clean-Voided MidstreamPerformed By: #### CUU, ADDONUAPLUS, A1C WTH eA, CBC, CMP, LIPID, TSH3 #### [place] [address] USASpecificy [place],Urine1.272Vjphrq1.001-1.030The [facility] [place] Physician GroupComment on above:Order Comment: Name Collection Type:: Clean- Voided MidstreamPerformed By: #### CUU, ADDONUAPLUS, A1C WTH eA, CBC, CMP, LIPID, TSH3 #### [place] [address] USASquamous Epithelial Cell,Rhvcq1-6Gqbmsx6-2Gxc [facility] [place] [facility]ician GroupComment on above:Order Comment: Name Collection Type:: Clean- Voided MidstreamPerformed By: #### CUU, ADDONUAPLUS, A1C WTH eA, CBC, CMP, LIPID, TSH3 #### [facility] [address] [place] [address] USAUrobilinogen,UrineNormalNormalNormalThe [facility] [place] [facility]ician GroupComment on above:Order Comment: Name Collection Type:: Clean- Voided MidstreamPerformed By: #### CUU, ADDONUAPLUS, A1C WTH eA, CBC, CMP, LIPID, TSH3 #### [facility] [address] [place] [address] USAWBC,Zlupl1-8Qdukxu0-7Rbf [facility] [place] [facility] GroupComment on above:Order Comment: Name Collection Type:: Clean-Voided MidstreamPerformed By: #### CUU, ADDONUAPLUS, A1C WTH eA, CBC, CMP, LIPID, TSH3 #### [facility] [address] [place] [address] USAEosinophils [#/volume] in Blood by Automated countOrdered By: Christina Jarvis on 90-19-5405Tqqhoadxhmd (Bld) [#/Vol]0.1 10*3/uLNormal0.0-0.45 Uc HealthComment on above:Performed By: #### CUU, ADDONUAPLUS, A1C WTH eA, CBC, CMP, LIPID, TSH3 #### [place] [address] USAEosinophils/100 leukocytes in Blood by Automated count Ordered By: Christina Jarvis on 03-77-2887Qogdloimkhu/100 WBC (Bld)3.1 %Normal. Uc HealthComment on above:Performed By: #### CUU, ADDONUAPLUS, A1C WTH eA, CBC, CMP, LIPID, TSH3 #### [facility] [address] [place] [address] USAEpithelial cells.squamous [#/area] in Urine sediment by Automated countOrdered By: Christina Jarvis on 91-97-6350Avahyxhvzs cells.squamous Auto (Urine sed) [#/Area]1-2 [HPF]0-2FHolzer Hospital Erythrocyte distribution width [Ratio] by Automated countOrdered By: Christina Jarvis on 94-66-2417Wwchftpprwu distribution width (RBC) [Ratio]15.1 %Normal 11.9-15.3FHolzer HospitalComment on above:Performed By: #### CUU, ADDONUAPLUS, A1C WTH eA, CBC, CMP, LIPID, TSH3 #### [facility] [address] [place] [address] USAErythrocytes [#/area] in Urine sediment by Automated count Ordered By: Christina Jarvis on 50-41-5159MXP Auto (Urine sed) [#/Area]5-9 [HPF]High 0-4FHolzer HospitalErythrocytes [#/volume] in Blood by Automated countOrdered By: Christina Jarvis on 92-70-3965FHG (Bld) [#/Vol]4.71 10*6/uLNormal3.60-5.00Uc HealthComment on above: Performed By: #### CUU, ADDONUAPLUS, A1C WTH eA, CBC, CMP, LIPID, TSH3 #### [facility] [address] [place] [address] USAGlomerular filtration rate [Volume Rate/Area] in Serum, Plasma or Blood by CreatinineOrdered By: Christina Jarvis on 34-08-3589Oqlwrvoxio filtration rate [Volume Rate/Area] in Serum, Plasma or Blood by Creatinine> 60.0 mL/MinUc HealthGlucose [Mass/volume] in Serum or Plasma Ordered By: Christina Jarvis on 79-70-2944Tpzrhlx [Mass/Vol]105 mg/lGBhvd68-839 Uc HealthComment on above:ADA recommended reference rangeRandom [...] WTH eA, CBC, CMP, LIPID, TSH3 #### [facility] [address] [place] [id number] USAGlucose [Mass/volume] in Urine by Test stripOrdered By: Christina Jarvis on 80-95-1512Qqurdka Test strip (U) [Mass/Vol]Normal mg/dLNormal Uc HealthHematocrit [Volume Fraction] of Blood by Automated countOrdered By: Christina Jarvis on 44-72-0189Mvtblyggmy (Bld) [Volume fraction]42.3 %Xgsehk64.0-46.4FHolzer HospitalComment on above: Performed By: #### CUU, ADDONUAPLUS, A1C WTH eA, CBC, CMP, LIPID, TSH3 #### [facility] [address] [place] [id number] USAHemoglobin A1c/Hemoglobin.total in BloodOrdered By: Christina Jarvis on 83-31-5675NxH8t (Bld) [Mass fraction]5.5 %Normal4.3-5.6FHolzer HospitalComment on above:Increased risk for diabetes: 5.7 - 6.4diabetes: >6.4glycemic control for adults with diabetes: <7.0Result Comment: Increased risk for diabetes: 5.7 - 6.4 diabetes: >6.4 glycemic control for adults with diabetes: <7.0Performed By: #### CUU, ADDONUAPLUS, A1C WTH eA, CBC, CMP, LIPID, TSH3 #### [facility] [address] [place] [id number] USAHemoglobin Test strip Ql (U)Ordered By: Christina Jarvis on 22-68-8381Mhogoonuyy Ql (U)1+HighNegativeUc Health Hemoglobin [Mass/volume] in BloodOrdered By: Christina Jarvis on 06-10-2025 Hemoglobin (Bld) [Mass/Vol]14.0 g/oZGugnys14.8-15.4FHolzer HospitalComment on above:Performed By: #### CUU, ADDONUAPLUS, A1C WTH eA, CBC, CMP, LIPID, TSH3 #### [facility] [address] [place] [address] USAHyaline casts [#/area] in Urine sediment by Automated countOrdered By: Christina Jarvis on 39-60-1625Eplskby casts Auto (Urine sed) [#/Area]None [LPF]0-8Uc HealthKetones [Presence] in Urine by Test stripOrdered By: Christina Jarvis on 19-82-2383Ngkaszy Ql (U)Trace NormalNegUniversity Hospitals Samaritan Medical CenterComment on above:Order Comment: Name Collection Type:: Clean-Voided MidstreamPerformed By: #### CUU, ADDONUAPLUS, A1C WTH eA, CBC, CMP, LIPID, TSH3 #### [facility] [address] [place] [id number] USALeukocyte esterase [Presence] in Urine by Test strip Ordered By: Christina Jarvis on 83-35-5226Gjxwafvmh esterase Test strip Ql (U) NegativeNormalNegUniversity Hospitals Samaritan Medical CenterComment on above:Order Comment: Name Collection Type:: Clean-Voided MidstreamPerformed By: #### CUU, ADDONUAPLUS, A1C WTH eA, CBC, CMP, LIPID, TSH3 #### [facility] [address] [place] [id number] USALeukocytes [#/area] in Urine sediment by Automated count Ordered By: Christina Jarvis on 04-60-4634DSJ Auto (Urine sed) [#/Area]1-2 [HPF]0-4 Uc HealthLeukocytes [#/volume] corrected for nucleated erythrocytes in Blood by Automated counOrdered By: Christina Jarvis on 01-09-5751GWU corrected for nucl RBC Auto (Bld) [#/Vol]4.3 10*3/uL3.8-11.6FHolzer HospitalLeukocytes [#/volume] in Blood by Automated countOrdered By: Christina Jarvis on 09-44-3835VNN (Bld) [#/Vol]4.3 10*3/uLNormal3.8-11.6FHolzer HospitalComment on above:Performed By: #### CUU, ADDONUAPLUS, A1C WTH eA, CBC, CMP, LIPID, TSH3 #### [facility] [address] [place] [address] USALipid Panelon 80-38-8671ABQ Cholesterol,Wewyoreecs08 mg/dL Normal0-100The [facility] [place] Physician GroupComment on above:Result Comment: LDL ATP III CLASSIFICATION LDL less than 100 mg/dL Optimal LDL 100-129 mg/dL Near or above optimal LDL 130-159 mg/dL Borderline high LDL 160-189 mg/dL High LDL greater than 189 mg/dL Very highPerformed By: #### CUU, ADDONUAPLUS, A1C WTH eA, CBC, CMP, LIPID, TSH3 #### [facility] [address] [place] [id number] USATriglyceride w/Jgifbi079 mg/dLHigh0-149The [facility] [place] Physician GroupComment on above:Result Comment: TRIG ATP III CLASSIFICATION TRIG less than 150 mg/dL Normal TRIG 150-199 mg/dL Borderline high TRIG 200-500 mg/dL High TRIG greater than 500 mg/dL Very high Standard traceable to the Center for Disease Conrtrol and Prevention (CDC) test method.Performed By: #### CUU, ADDONUAPLUS, A1C WTH eA, CBC, CMP, LIPID, TSH3 #### [facility] [address] [place] [id number] USAVLDL RLZJOTKQWNG28 mg/dLNormalThe [facility] [place] Physician [facility] HospitalComment on above:Performed By: #### CUU, ADDONUAPLUS, A1C WTH eA, CBC, CMP, LIPID, TSH3 #### [facility] [address] [place] [id number] USALymphocytes [#/volume] in Blood by Automated countOrdered By: Christina Jarvis on 53-44-6464Lysbufybpez (Bld) [#/Vol]1.0 10*3/uLNormal1.00-4.8 Uc HealthComment on above:Performed By: #### CUU, ADDONUAPLUS, A1C WTH eA, CBC, CMP, LIPID, TSH3 #### [facility] [address] [place] [id number] USALymphocytes/100 leukocytes in Blood by Automated count Ordered By: Christina Jarvis on 05-45-8727Ehmgdnkwwuw/100 WBC (Bld)23.0 %Normal. Uc HealthComment on above:Performed By: #### CUU, ADDONUAPLUS, A1C WTH eA, CBC, CMP, LIPID, TSH3 #### [facility] [address] [Entitic mass] by Automated countOrdered By: Christina Jarvis on 04-07-1652ZJH (RBC) [Entitic mass]29.8 laOxsnnn08.7-34.3FHolzer HospitalComment on above:Performed By: #### CUU, ADDONUAPLUS, A1C WTH eA, CBC, CMP, LIPID, TSH3 #### [facility] [address] Auto (RBC) [Mass/Vol]Ordered By: Christina Jarvis on 54-03-3164TMYJ (RBC) [Mass/Vol]33.1 g/dL32.0-35.0[facility]stownV [Entitic volume] by Automated countOrdered By: Christina Jarvis on 91-51-9638LEB (RBC) [Entitic vol]89.9 rDNyscxx95-444BovrezcraUc HealthComment on above:Performed By: #### CUU, ADDONUAPLUS, A1C WTH eA, CBC, CMP, LIPID, TSH3 #### [facility] [address] [place] [address] USAMonocytes [#/volume] in Blood by Automated countOrdered By: Christina Jarvis on 07-91-2557Irjdeuomq (Bld) [#/Vol]0.3 10*3/uLNormal0.0-0.8 Uc HealthComment on above:Performed By: #### CUU, ADDONUAPLUS, A1C WTH eA, CBC, CMP, LIPID, TSH3 #### [facility] [address] [place] [address] USAMonocytes/100 leukocytes in Blood by Automated count Ordered By: Christina Jarvis on 58-61-8427Vyzeehiao/100 WBC (Bld)7.6 %Normal. Uc HealthComment on above:Performed By: #### CUU, ADDONUAPLUS, A1C WTH eA, CBC, CMP, LIPID, TSH3 #### [facility] [address] [place] [phone] USAMucus [Presence] in Urine by AutomatedOrdered By: Christina Jarvis on 31-21-6349Udlez Auto Ql (U)Rare [LPF][facility] Neutrophils [#/volume] in Blood by Automated countOrdered By: Christina Jarvis on 84-75-6071Itmkrmxcebd (Bld) [#/Vol]2.8 10*3/uLNormal1.8-7.7FHolzer HospitalComment on above:Performed By: #### CUU, ADDONUAPLUS, A1C WTH eA, CBC, CMP, LIPID, TSH3 #### [facility] [address] [place] [id number] USANeutrophils/100 leukocytes in Blood by Automated count Ordered By: Christina Jarvis on 07-98-5778Oorevcnbprg/100 WBC (Bld)65.5 %Normal. Uc HealthComment on above:Performed By: #### CUU, ADDONUAPLUS, A1C WTH eA, CBC, CMP, LIPID, TSH3 #### [facility] [address] [place] [address] USANitrite Test strip Ql (U)Ordered By: Christina Jarvis on 05-25-2864Yskxhjv Ql (U)NegativeNegativeUc HealthNo Panel InformationOrdered By: Christina Jarvis on 02-57-2052Sbnuzorf Creatinine Clearance (ChemN/AFHolzer HospitalNucleated erythrocytes [Presence] in Blood by Automated countOrdered By: Christina Jarvis on 06-10-2025 Nucleated RBC Auto Ql (Bld)0.2 /100{WBC}0-0.5FHolzer Hospital Platelet mean volume [Entitic volume] in Blood by Automated countOrdered By: Christina Jarvis on 10-10-4916Chlqffpc mean volume (Bld) [Entitic vol]8.1 fLNormal 6.3-10.7FHolzer HospitalComment on above:Performed By: #### CUU, ADDONUAPLUS, A1C WTH eA, CBC, CMP, LIPID, TSH3 #### [facility] [address] [place] [address] USAPlatelets [#/volume] in Blood by Automated countOrdered By: Christina Jarvis on 50-17-6248Fjfhmzyti (Bld) [#/Vol]323 10*3/nEIedipo575-001 Uc HealthComment on above:Performed By: #### CUU, ADDONUAPLUS, A1C WTH eA, CBC, CMP, LIPID, TSH3 #### [facility] [address] [place] [address] USAPotassium [Moles/volume] in Serum or PlasmaOrdered By: Christina Jarvis on 39-43-7142Mpgjdfdyq [Moles/Vol]4.1 mmol/LNormal3.5-5.1FHolzer HospitalComment on above:Lipemia is present at a level that could interfere with the result.Hemolysis is present at a level that could interfere with the result.Result Comment: Lipemia is present at a level that could interfere with the result. Hemolysis is present at a level that could interfere with the result.Performed By: #### CUU, ADDONUAPLUS, A1C WTH eA, CBC, CMP, LIPID, TSH3 #### [facility] [address] [place] [address] USAProtein Test strip (U) [Mass/Vol]Ordered By: Christina Jarvis on 11-19-7163Kjznaaj (U) [Mass/Vol]NegativeNegativeUc HealthProtein [Mass/volume] in Serum or PlasmaOrdered By: Christina Jarvis on 05-86-1209Gwlxtnz [Mass/Vol]6.8 g/dLNormal6.4-8.9Uc HealthComment on above:Performed By: #### CUU, ADDONUAPLUS, A1C WTH eA, CBC, CMP, LIPID, TSH3 #### [facility] [address] [place] [address] USASerum globulin measurement by calculation (mass/volume) Ordered By: Christina Jarvis on 61-14-0922Nkwwhmkn (S) [Mass/Vol]2.6 g/dLNormal Uc HealthComment on above:Performed By: #### CUU, ADDONUAPLUS, A1C WTH eA, CBC, CMP, LIPID, TSH3 #### [facility] [address] [place] [phone] USASerum or plasma albumin/globulin mass ratioOrdered By: Christina Jarvis on 57-95-9233Nnwnhuv/Globulin [Mass ratio]1.6 {ratio}Normal Uc HealthComment on above:Performed By: #### CUU, ADDONUAPLUS, A1C WTH eA, CBC, CMP, LIPID, TSH3 #### [facility] [address] [place] [phone] USASerum or plasma anion gap determinationOrdered By: Christina Jarvis on 35-26-4817Gjcki gap [Moles/Vol]11.5 mmol/LNormal6.0-15.0Uc HealthComment on above:Performed By: #### CUU, ADDONUAPLUS, A1C WTH eA, CBC, CMP, LIPID, TSH3 #### [place] [address] USASerum or plasma total cholesterol/high density lipoprotein (HDL) cholesterol mass ratOrdered By: Christina Jarvis on 06-10-2025 Cholesterol.total/Cholesterol in HDL [Mass ratio]3.5 {ratio}Normal<5.0Uc HealthComment on above:Performed By: #### CUU, ADDONUAPLUS, A1C WTH eA, CBC, CMP, LIPID, TSH3 #### [place] [phone] USASodium [Moles/volume] in Serum or PlasmaOrdered By: Christina Jarvis on 70-22-9744Bqbfrv [Moles/Vol]139 mmol/GIfnysl255-999DqmkxacusUc HealthComment on above:Lipemia is present at a level that could interfere with the result.Hemolysis is present at a level that could interfere with the result.Result Comment: Lipemia is present at a level that could interfere with the result. Hemolysis is present at a level that could interfere with the result.Performed By: #### CUU, ADDONUAPLUS, A1C WTH eA, CBC, CMP, LIPID, TSH3 #### [place] [phone] USASpecific gravity Test strip (U) [Rel density]Ordered By: Christina Jarvis on 61-33-5203Hiqbyklj gravity (U) [Rel density]1.0141.001-1.030 Uc HealthThyrotropin [Units/volume] in Serum or Plasma Ordered By: Christina Jarvis on 52-39-8430GQG Qn2.22 m[IU]/LNormal0.45-5.33Uc HealthComment on above:Result Comment: PERFORMED BY: [place] [address] PATHOLOGIST SELF PROPELLED [employer] ROLLER OPERATOR CHAMP COATES M.D.Performed By: #### MARCUS TERAN, A1C WTH eA, CBC, CMP, LIPID, TSH3 #### [facility] [address] [place] [address] USATriglyceride [Mass/volume] in Serum or PlasmaOrdered By: Christina Jarvis on 91-04-2399Rnjfgcozetky [Mass/Vol]163 mg/dLHigh0-149Uc HealthComment on above:TRIG ATP III CLASSIFICATIONTRIG less than 150 mg/dL NormalTRIG 150-199 mg/dL Borderline highTRIG 200-500 mg/dL High TRIG greater than 500 mg/dL Very highStandard traceable to the Center for Disease Conrtrol and Prevention (CDC) test method.Urea nitrogen [Mass/volume] in Serum or PlasmaOrdered By: Christina Jarvis on 86-93-5200Lzfb nitrogen [Mass/Vol]15 mg/dLNormal7-25Uc HealthComment on above:Performed By: #### BOB TERANONJARRETPLUS, A1C WTH eA, CBC, CMP, LIPID, TSH3 #### [facility] [address] [place] [address] USAUrine Cultureon 99-53-7514Qkinbcot identified Cx Nom (U) >100,000 colonies/ml mixed bacterial skin contaminants 2 Days PERFORMED BY: [place] [address] PATHOLOGIST SELF PROPELLED H[employer] MIX ROLLER OPERATOR CHAMP COATES M.D.NormalThe [facility] [place] Physician GroupComment on above: Performed By: #### ANSONU, ADDONUAPLUS, A[facility]C [facility] eA, CBC, CMP, LIPID, TSH3 #### [facility] [address] [place] [address] USAUrobilinogen Test strip (U) [Mass/Vol]Ordered By: Christina Jarvis on 80-41-9634Drsurbtbcotv (U) [Mass/Vol]Normal mg/dLNormalUc HealthpH of Urine by Test stripOrdered By: Christina Jarvis on 62-07-5504vO (U)6.0 [pH]Normal5.0-9.0Uc HealthComment on above:Order Comment: Name Collection Type:: Clean-Voided MidstreamPerformed By: #### CUU, ADDONUAPLUS, A1C [facility] eA, CBC, CMP, LIPID, TSH3 #### [facility] [address] [place] [phone] USAAlanine aminotransferase [Enzymatic activity/volume] in Serum or PlasmaOrdered By: Christina Jarvis on 65-21-5529IHQ [Catalytic activity/Vol]25 U/L7-52Uc HealthAlbumin [Mass/volume] in Serum or Plasma by Bromocresol green (BCG) dye binding methoOrdered By: Christina Jarvis on 12-85-1535Svpluoz BCG dye [Mass/Vol]4.1 g/dL3.5-5.7FHolzer HospitalAlkaline phosphatase [Enzymatic activity/volume] in Serum or PlasmaOrdered By: Christina Jarvis on 03-06-9422XLI [Catalytic activity/Vol]84 U/L 34-104Uc HealthAspartate aminotransferase [Enzymatic activity/volume] in Serum or PlasmaOrdered By: Christina Jarvis on 10-16-1561WAU [Catalytic activity/Vol]25 U/B07-58TvkcwtpydUc HealthBacteria [Presence] in Urine by AutomatedOrdered By: Christina Jarvis on 35-78-3427Nifrbrrw Auto Ql (U)None seen [HPF]None SeenUc HealthBasophils Auto (Bld) [#/Vol]Ordered By: Christina Jarvis on 02-46-7787Pksytoenl (Bld) [#/Vol] 0.0 10*3/uL0.0-0.2FHolzer HospitalBasophils/100 WBC Auto (Bld) Ordered By: Christina Jarvis on 22-02-6632Rvmxqpell/100 WBC (Bld)1.0 %.Uc HealthBilirubin Test strip Ql (U)Ordered By: Christina Jarvis on 67-92-9592Qpqnhblgp Ql (U)NegativeNegativeUc Health Bilirubin.total [Mass/volume] in Serum or PlasmaOrdered By: Christina Jarvis on 68-98-3998Ajxxzsdsw [Mass/Vol]0.5 mg/dL0.3-1.0[facility] Calcium [Mass/volume] in Serum or PlasmaOrdered By: Christina Jarvis on 05-24-2024 Calcium [Mass/Vol]9.9 mg/dL8.6-10.3FHolzer HospitalCarbon dioxide, total [Moles/volume] in Serum or PlasmaOrdered By: Christina Jarvis on 69-07-9073BL1 [Moles/Vol]29.1 mmol/L21.0-31.0[facility] Chloride [Moles/volume] in Serum or PlasmaOrdered By: Christina Jarvis on 05-24-2024 Chloride [Moles/Vol]104 mmol/X82-151XuqcnkrliUc HealthCholesterol [Mass/volume] in Serum or PlasmaOrdered By: Christina Jarvis on 05-24-2024 Cholesterol [Mass/Vol]175 mg/rR336-842GgnykujtdUc HealthComment on above:Chol less than 200 mg/dl low riskChol 201-239 mg/dl borderline riskChol 240 mg/dl and greater high riskCholesterol in LDL Calc [Mass/Vol]Ordered By: Christina Jarvis on 19-99-4475Sehyowufime in LDL [Mass/Vol]90 mg/dL0-100Uc HealthComment on above:LDL ATP III CLASSIFICATIONLDL less than 100 mg/dL OptimalLDL 100-129 mg/dL Near or above vlyvdemHNQ290-453 mg/dL Borderline highLDL 160-189 mg/dL HighLDL greater than 189 mg/dL Very high Cholesterol in VLDL Calc [Mass/Vol]Ordered By: Christina Jarvis on 05-24-2024 Cholesterol in VLDL [Mass/Vol]36 mg/dLUc HealthColor Auto (U)Ordered By: Christina Jarvis on 27-66-5897Sqrra (U)Light-yellowYellow Uc HealthCreatinine [Mass/volume] in Serum or Plasma Ordered By: Christina Jarvis on 98-77-2585Amqtpebzqq [Mass/Vol]0.85 mg/dL0.60-1.20 Uc HealthEosinophils Auto (Bld) [#/Vol]Ordered By: Christina Jarvis on 24-14-4638Vkddxqjflsw (Bld) [#/Vol]0.2 10*3/uL0.0-0.45Uc HealthEosinophils/100 WBC Auto (Bld)Ordered By: Christina Jarvis on 80-22-8827Qfivwomerki/100 WBC (Bld)3.6 %.[facility] Epithelial cells.squamous [#/area] in Urine sediment by Automated countOrdered By: Christina Jarvis on 41-05-2186Xxahrxurje cells.squamous Auto (Urine sed) [#/Area]1-2 [HPF]0-2FHolzer HospitalErythrocyte distribution width Auto (RBC) [Ratio]Ordered By: Christina Jarvis on 16-82-8712Dzvajqgtnea distribution width (RBC) [Ratio]14.7 %11.9-15.3FHolzer Hospital Erythrocytes [#/area] in Urine sediment by Automated countOrdered By: Christina Jarvis on 89-85-1789LTP Auto (Urine sed) [#/Area]3-4 [HPF]0-4FHolzer HospitalGlobulin Calc (S) [Mass/Vol]Ordered By: Christina Jarvis on 05-24-2024 Globulin (S) [Mass/Vol]2.3 g/dLUc HealthGlucose [Mass/volume] in Serum or PlasmaOrdered By: Christina Jarvis on 23-47-5283Potppsm [Mass/Vol]97 mg/sE05-730AoavgsqwmUc HealthComment on above:ADA recommended reference rangeRandom Glucose [...] from glycated hemoglobinOrdered By: Christina Jarvis on 86-30-7017Moqmjaj glucose Estimated from glycated hemoglobin (Bld) [Mass/Vol]126 mg/dLUc Health Hematocrit Auto (Bld) [Volume fraction]Ordered By: Christina Jarvis on 05-24-2024 Hematocrit (Bld) [Volume fraction]41.0 %34.0-46.4FHolzer HospitalHemoglobin A1c percentageOrdered By: Christina Jarvis on 41-84-7047JqO9v (Bld) [Mass fraction]6.0 %High4.3-5.6FHolzer HospitalComment on above:Increased risk for diabetes: 5.7 - 6.4diabetes: >6.4glycemic control for adults with diabetes: <7.0Hemoglobin Test strip Ql (U)Ordered By: Christina Jarvis on 42-86-5751Mvgshhhyqu Ql (U)1+HighNegativeUc HealthHemoglobin [Mass/volume] in BloodOrdered By: Christina Jarvis on 05-24-2024 Hemoglobin (Bld) [Mass/Vol]13.6 g/dL11.8-15.4FHolzer Hospital Hyaline casts [#/area] in Urine sediment by Automated countOrdered By: Christina Jarvis on 26-28-6549Qctozxa casts Auto (Urine sed) [#/Area]None [LPF]0-8 Uc HealthKetones Test strip Ql (U)Ordered By: Christina Jarvis on 57-90-0548Dpsanlz Ql (U)NegativeNegativeUc HealthLeukocyte esterase [Presence] in Urine by Test stripOrdered By: Christina Jarvis on 38-77-6399Ftdhetatm esterase Test strip Ql (U)NegativeNegative Uc HealthLeukocytes [#/area] in Urine sediment by Automated countOrdered By: Christina Jarvis on 66-75-0161XSC Auto (Urine sed) [#/Area]1-2 [HPF]0-4FHolzer HospitalLeukocytes [#/volume] corrected for nucleated erythrocytes in Blood by Automated counOrdered By: Christina Jarvis on 88-67-3883MHD corrected for nucl RBC Auto (Bld) [#/Vol]4.3 10*3/uL 3.8-11.6FHolzer HospitalLymphocytes Auto (Bld) [#/Vol]Ordered By: Christina Jarvis on 13-58-7436Xoysgcztzmt (Bld) [#/Vol]1.2 10*3/uL1.00-4.8 Uc HealthLymphocytes/100 WBC Auto (Bld)Ordered By: Christina Jarvis on 10-05-7191Ewontdqitdx/100 WBC (Bld)27.5 %.[facility]stownH Auto (RBC) [Entitic mass]Ordered By: Christina Jarvis on 57-21-2305EUT (RBC) [Entitic mass]29.4 pg24.7-34.3FHolzer HospitalMCHC Auto (RBC) [Mass/Vol]Ordered By: Christina Jarvis on 86-97-3650NWQG (RBC) [Mass/Vol]33.2 g/dL32.0-35.0Uc HealthMCV Auto (RBC) [Entitic vol] Ordered By: Christina Jarvis on 33-79-0899UUU (RBC) [Entitic vol]88.5 yY63-042 Uc HealthMonocytes Auto (Bld) [#/Vol]Ordered By: Christina Jarvis on 54-01-9653Xnnmaelwt (Bld) [#/Vol]0.4 10*3/uL0.0-0.8Uc HealthMonocytes/100 WBC Auto (Bld)Ordered By: Christina Jarvis on 05-24-2024 Monocytes/100 WBC (Bld)8.6 %.Uc HealthMucus [Presence] in Urine by AutomatedOrdered By: Christina Jarvis on 58-24-4906Rkkfc Auto Ql (U)Rare [LPF]Uc HealthNeutrophils Auto (Bld) [#/Vol]Ordered By: Christina Jarvis on 99-90-9228Ctiiumnrugq (Bld) [#/Vol]2.5 10*3/uL1.8-7.7FHolzer HospitalNeutrophils/100 WBC Auto (Bld)Ordered By: Christina Jarvis on 27-84-8436Muqqnfjbguq/100 WBC (Bld)59.3 %.[facility] Nitrite Test strip Ql (U)Ordered By: Christina Jarvis on 51-82-2225Anwkurp Ql (U) NegativeNegativeUc HealthNo Panel InformationOrdered By: Christina Jarvis on 20-52-7790Ypioefqsq GFR (CKD-EPI)> 60.0 mL/MinUc HealthPharmacy Creatinine Clearance (ChemN/AFHolzer HospitalNucleated erythrocytes [Presence] in Blood by Automated count Ordered By: Christina Jarvis on 18-47-8565Nencghzde RBC Auto Ql (Bld)0.1 /100{WBC} 0-0.5FHolzer HospitalPlatelet mean volume Auto (Bld) [Entitic vol]Ordered By: Christina Jarvis on 21-08-6111Iunakhco mean volume (Bld) [Entitic vol]7.9 fL6.3-10.7FHolzer HospitalPlatelets Auto (Bld) [#/Vol] Ordered By: Christina Jarvis on 36-42-5963Awouwsqoa (Bld) [#/Vol]325 10*3/eI412-307 Uc HealthPotassium [Moles/volume] in Serum or Plasma Ordered By: Christina Jarvis on 84-59-4524Znfzwstkn [Moles/Vol]4.2 mmol/L3.5-5.1 Uc HealthProtein Test strip (U) [Mass/Vol]Ordered By: Christina Jarvis on 53-83-3718Hboxjit (U) [Mass/Vol]NegativeNegativeUc HealthProtein [Mass/volume] in Serum or PlasmaOrdered By: Christina Jarvis on 10-21-9111Ymcxkxp [Mass/Vol]6.4 g/dL6.4-8.9Uc HealthRBC Auto (Bld) [#/Vol]Ordered By: Christina Jarvis on 04-77-4652RYC (Bld) [#/Vol]4.63 10*6/uL3.60-5.00[facility] Centererum or plasma albumin/globulin mass ratioOrdered By: Christina Jarvis on 05-24-2024 Albumin/Globulin [Mass ratio]1.8 {ratio}[facility] Centererum or plasma anion gap determinationOrdered By: Christina Jarvis on 67-65-5582Eauht gap [Moles/Vol]10.1 mmol/L6.0-15.0[facility] Centererum or plasma high density lipoprotein (HDL) cholesterol measurementOrdered By: Christina Jarvis on 46-99-7429Lmpaitbfpko in HDL [Mass/Vol]49 mg/kI42-88TnpjjomklUc HealthComment on above:HDL CHOL ATP-III CLASSIFICATION Cardiovascular RiskHDL > or equal to 60 mg/dL LOWHDL < 40 mg/dL HIGHSerum or plasma total cholesterol/high density lipoprotein (HDL) cholesterol mass ratOrdered By: Christina Jarvis on 89-42-5613Thswkcwvmpj.total/Cholesterol in HDL [Mass ratio]3.6 {ratio}<5.0[facility] Centerodium [Moles/volume] in Serum or PlasmaOrdered By: Christina Jarvis on 22-45-7287Cohwrp [Moles/Vol]139 mmol/L089-607 [facility] Centerpecific gravity Test strip (U) [Rel density] Ordered By: Christina Jarvis on 95-76-3218Jjukjelp gravity (U) [Rel density]1.016 1.001-1.030[facility] HealthThyrotropin [Units/volume] in Serum or PlasmaOrdered By: Christina Jarvis on 76-83-2591PTG Qn2.10 m[IU]/L0.45-5.33 [facility] HealthTriglyceride [Mass/volume] in Serum or Plasma Ordered By: Christina Jarvis on 66-23-7616Jicvjahxvivm [Mass/Vol]182 mg/dLHigh0-149 Uc HealthComment on above:TRIG ATP III CLASSIFICATIONTRIG less than 150 mg/dL NormalTRIG 150-199 mg/dL Borderline highTRIG 200-500 mg/dL High TRIG greater than 500 mg/dL Very highStandard traceable to the Center for Disease Conrtrol and Prevention (CDC) test method. Urea nitrogen [Mass/volume] in Serum or PlasmaOrdered By: Christina Jarvis on 77-12-7915Jvuf nitrogen [Mass/Vol]12 mg/dL7-25[facility] Urine appearanceOrdered By: Christina Jarvis on 52-37-8977Iydmulauqx (U)ClearClear Uc HealthUrine culture routineOrdered By: Christina Jarvis on 25-26-2245Fynxokaf identified Cx Nom (U)2 DaysUc HealthUrobilinogen Test strip (U) [Mass/Vol]Ordered By: Christina Jarvis on 51-81-9867Ggxbuftlswev (U) [Mass/Vol]Normal mg/dLNormalUc HealthWBC Auto (Bld) [#/Vol]Ordered By: Christina Jarvis on 29-45-7825GLD (Bld) [#/Vol]4.3 10*3/uL3.8-11.6FHolzer HospitalpH Test strip (U)Ordered By: Christina Jarvis on 81-10-3488rX (U)6.5 [pH]5.0-9.0Uc HealthAlanine aminotransferase [Enzymatic activity/volume] in Serum or PlasmaOrdered By: Christina Jarvis on 08-69-9739ZGA [Catalytic activity/Vol]20 U/L 7-52Uc HealthAlbumin [Mass/volume] in Serum or Plasma by Bromocresol green (BCG) dye binding methoOrdered By: Christina Jarvis on 02-04-2023 Albumin BCG dye [Mass/Vol]3.9 g/dL3.5-5.7FHolzer Hospital Alkaline phosphatase [Enzymatic activity/volume] in Serum or PlasmaOrdered By: Christina Jarvis on 81-30-8350JFH [Catalytic activity/Vol]84 U/T65-068KmnrtfokfUc HealthAspartate aminotransferase [Enzymatic activity/volume] in Serum or PlasmaOrdered By: Christina Jarvis on 55-26-5412MQK [Catalytic activity/Vol]20 U/U08-51ItwepohknUc HealthAutomated erythrocytes count in urine sediment (number/area)Ordered By: Christina Jarvis on 51-73-2424FQI Auto (Urine sed) [#/Area]3-4 [HPF]0-4FHolzer HospitalAutomated leukocytes count in urine sediment (number/area)Ordered By: Christina Jarvis on 35-61-0207GNM Auto (Urine sed) [#/Area]None seen [HPF]0-4FHolzer HospitalBasophils Auto (Bld) [#/Vol]Ordered By: Christina Jarvis on 02-04-2023 Basophils (Bld) [#/Vol]0.0 10*3/uL0.0-0.2FHolzer Hospital Basophils/100 WBC Auto (Bld)Ordered By: Christina Jarvis on 71-93-9920Hkcvxtjnf/100 WBC (Bld)1.1 %.Uc HealthBilirubin Test strip Ql (U) Ordered By: Christina Jarvis on 11-18-0952Kdhbrtojq Ql (U)NegativeNegativeUc HealthBilirubin.total [Mass/volume] in Serum or PlasmaOrdered By: Christina Jarvis on 44-74-4270Qhebdaqyt [Mass/Vol]0.5 mg/dL0.3-1.0Uc HealthCalcium [Mass/volume] in Serum or PlasmaOrdered By: Christina Jarvis on 40-19-9823Tcggcrd [Mass/Vol]9.4 mg/dL8.6-10.3FHolzer HospitalCarbon dioxide, total [Moles/volume] in Serum or PlasmaOrdered By: Christina Jarvis on 55-25-1648SZ7 [Moles/Vol]30.3 mmol/L21.0-31.0Uc HealthChloride [Moles/volume] in Serum or PlasmaOrdered By: Christina Jarvis on 06-03-6446Ejzyodxb [Moles/Vol]104 mmol/L53-094PozotqqzrUc HealthCholesterol [Mass/volume] in Serum or PlasmaOrdered By: Christina Jarvis on 72-08-6266Fyvelilcutq [Mass/Vol]173 mg/nX154-761EwlozksptUc HealthComment on above:Chol less than 200 mg/dl low riskChol 201-239 mg/dl borderline riskChol 240 mg/dl and greater high riskCholesterol in LDL Calc [Mass/Vol]Ordered By: Christina Jarvis on 15-65-5717Xodzzhlmcqt in LDL [Mass/Vol]89 mg/dL0-100Uc HealthComment on above:LDL ATP III CLASSIFICATIONLDL less than 100 mg/dL OptimalLDL 100-129 mg/dL Near or above jkwdsixAWX856-847 mg/dL Borderline highLDL 160-189 mg/dL HighLDL greater than 189 mg/dL Very highCholesterol in VLDL Calc [Mass/Vol]Ordered By: Christina Jarvis on 52-52-4754Gybpbchsboj in VLDL [Mass/Vol]37 mg/dLUc HealthColor Auto (U)Ordered By: Christina Jarvis on 79-73-6639Iteqt (U)YellowYellow Uc HealthCreatinine [Mass/volume] in Serum or Plasma Ordered By: Christina Jarvis on 98-15-4746Ufvwziuklq [Mass/Vol]0.84 mg/dL0.60-1.20 [facility] HealthEosinophils Auto (Bld) [#/Vol]Ordered By: Christina Jarvis on 17-57-0320Pcdztibjdxx (Bld) [#/Vol]0.2 10*3/uL0.0-0.45Uc HealthEosinophils/100 WBC Auto (Bld)Ordered By: Christina Jarvis on 12-67-6368Wtvcmnvcrrf/100 WBC (Bld)5.4 %.[facility] Erythrocyte distribution width Auto (RBC) [Ratio]Ordered By: Christina Jarvis on 81-00-1169Temhirtcexw distribution width (RBC) [Ratio]14.9 %11.9-15.3FHolzer HospitalGlobulin Calc (S) [Mass/Vol]Ordered By: Christina Jarvis on 25-34-4740Sgyhokuz (S) [Mass/Vol]2.6 g/dLUc Health Glucose [Mass/volume] in Serum or PlasmaOrdered By: Christina Jarvis on 02-04-2023 Glucose [Mass/Vol]102 mg/mH33-726MpsjqoqceUc HealthComment on above:ADA recommended reference rangeRandom Glucose Reference Range is dependent on time and content of last meal. Glucose of more than 200 mg/dL in a nonstressed, ambulatory subject supports the diagnosisof Diabetes Mellitus. Hematocrit Auto (Bld) [Volume fraction]Ordered By: Christina Jarvis on 02-04-2023 Hematocrit (Bld) [Volume fraction]39.8 %34.0-46.4FHolzer HospitalHemoglobin [Mass/volume] in BloodOrdered By: Christina Jarvis on 02-04-2023 Hemoglobin (Bld) [Mass/Vol]13.1 g/dL11.8-15.4FHolzer Hospital Ketones Auto test strip (U) [Mass/Vol]Ordered By: Christina Jarvis on 02-04-2023 Ketones (U) [Mass/Vol]NegativeNegativeUc Health Laboratory - UrinalysisOrdered By: Christina Jarvis on 65-76-1625Dlujehy casts LM Ql (Urine sed)None seen [LPF]0-8Uc HealthLeukocytes [#/volume] corrected for nucleated erythrocytes in Blood by Automated coun Ordered By: Christina Jarvis on 81-13-3115NWN corrected for nucl RBC Auto (Bld) [#/Vol]4.1 10*3/uL3.8-11.6FHolzer HospitalLymphocytes Auto (Bld) [#/Vol]Ordered By: Christina Jarvis on 59-49-7391Oowkzfghqio (Bld) [#/Vol]1.0 10*3/uL1.00-4.8Uc HealthLymphocytes/100 WBC Auto (Bld) Ordered By: Christina Jarvis on 30-84-4924Xzcvpofhiwx/100 WBC (Bld)25.3 %.[facility]stownH Auto (RBC) [Entitic mass]Ordered By: Christina Jarvis on 32-99-4223GXL (RBC) [Entitic mass]29.3 pg24.7-34.3FHolzer HospitalMCHC Auto (RBC) [Mass/Vol]Ordered By: Christina Jarvis on 69-67-1778OEZX (RBC) [Mass/Vol]32.9 g/dL32.0-35.0Uc HealthMCV Auto (RBC) [Entitic vol]Ordered By: Christina Jarvis on 18-02-5291PZL (RBC) [Entitic vol]89.2 tV78-228AcugfbfmzUc HealthMonocytes Auto (Bld) [#/Vol]Ordered By: Christina Jarvis on 72-51-4908Jcgwotaia (Bld) [#/Vol]0.4 10*3/uL0.0-0.8Uc HealthMonocytes/100 WBC Auto (Bld)Ordered By: Christina Jarvis on 41-26-2896Rumwzbnay/100 WBC (Bld)9.8 %.[facility] Neutrophils Auto (Bld) [#/Vol]Ordered By: Christina Jarvis on 05-74-7843Ywibwrkgldr (Bld) [#/Vol]2.4 10*3/uL1.8-7.7FHolzer HospitalNeutrophils/100 WBC Auto (Bld)Ordered By: Christina Jarvis on 75-45-6158Rnllcidgzxr/100 WBC (Bld) 58.4 %.Uc HealthNitrite Test strip Ql (U)Ordered By: Christina Jarvis on 02-31-8261Gvmssnz Ql (U)NegativeNegativeUc HealthNo Panel InformationOrdered By: Christina Jarvis on 02-04-2023 Estimated GFR (CKD-EPI)> 60.0 mL/MinUc HealthPharmacy Creatinine Clearance (ChemN/AFHolzer HospitalNucleated erythrocytes [Presence] in Blood by Automated countOrdered By: Christina Jarvis on 90-91-5089Lyuosmyqc RBC Auto Ql (Bld)0.1 /100{WBC}0-0.5FHolzer HospitalPlatelet mean volume Auto (Bld) [Entitic vol]Ordered By: Christina Jarvis on 64-64-4147Klbtkpnm mean volume (Bld) [Entitic vol]7.8 fL6.3-10.7 Uc HealthPlatelets Auto (Bld) [#/Vol]Ordered By: Christina Jarvis on 12-83-1321Xsoponsml (Bld) [#/Vol]308 10*3/aQ411-569JlpczlbwxUc HealthPotassium [Moles/volume] in Serum or PlasmaOrdered By: Christina Jarvis on 87-47-5151Dsbmgrovc [Moles/Vol]4.4 mmol/L3.5-5.1FHolzer HospitalProtein Auto test strip (U) [Mass/Vol]Ordered By: Christina Jarvis on 19-53-0828Oxxsedg (U) [Mass/Vol]NegativeNegativeUc HealthProtein [Mass/volume] in Serum or PlasmaOrdered By: Christina Jarvis on 08-61-4998Sxmlaeh [Mass/Vol]6.5 g/dL6.4-8.9Uc HealthRBC Auto (Bld) [#/Vol]Ordered By: Christina Jarvis on 52-62-9676XNI (Bld) [#/Vol]4.46 10*6/uL3.60-5.00[facility] Centererum or plasma albumin/globulin mass ratioOrdered By: Christina Jarvis on 02-04-2023 Albumin/Globulin [Mass ratio]1.5 {ratio}[facility] Centererum or plasma anion gap determinationOrdered By: Christina Jarvis on 28-47-8928Dgejr gap [Moles/Vol]10.1 mmol/L6.0-15.0[facility] Centererum or plasma high density lipoprotein (HDL) cholesterol measurementOrdered By: Christina Jarvis on 87-51-3201Adqctqdtzsh in HDL [Mass/Vol]47 mg/zS76-37WfnajmrjlUc HealthComment on above:HDL CHOL ATP-III CLASSIFICATION Cardiovascular RiskHDL > or equal to 60 mg/dL LOWHDL < 40 mg/dL HIGHSerum or plasma total cholesterol/high density lipoprotein (HDL) cholesterol mass ratOrdered By: Christina Jarvis on 80-09-4683Qcphudaebnv.total/Cholesterol in HDL [Mass ratio]3.7 {ratio}<5.0[facility] Centerodium [Moles/volume] in Serum or PlasmaOrdered By: Christina Jarvis on 48-84-7834Lrucku [Moles/Vol]140 mmol/Y150-403 [facility] Centerpecific gravity Auto test strip (U) [Rel density]Ordered By: Christina Jarvis on 19-34-9712Uiolzfue gravity (U) [Rel density] 1.0101.001-1.030[facility] Centerquamous epithelial cells detection in urine sediment by light microscopyOrdered By: Christina Jarvis on 49-94-5979Vrbwevkfbl cells.squamous LM Ql (Urine sed)0-1 [HPF]0-2FHolzer HospitalThyrotropin [Units/volume] in Serum or PlasmaOrdered By: Christina Jarvis on 40-64-4970AST Qn2.01 m[IU]/L0.45-5.33Uc HealthTriglyceride [Mass/volume] in Serum or PlasmaOrdered By: Christina Jarvis on 90-84-2339Zmbbsztivphm [Mass/Vol]186 mg/dL0-149[facility] Comment on above:TRIG ATP III CLASSIFICATIONTRIG less than 150 mg/dL NormalTRIG 150-199 mg/dL Borderline highTRIG 200-500 mg/dL High TRIG greater than 500 mg/dL Very highStandard traceable to the Center for Disease Conrtrol and Prevention (CDC) test method.Urea nitrogen [Mass/volume] in Serum or PlasmaOrdered By: Christina Jarvis on 60-94-2259Rdwf nitrogen [Mass/Vol]15 mg/dL7-25Uc HealthUrine bacteria detection by automated methodOrdered By: Christina Jarvis on 37-68-0337Drzuhyio Auto Ql (U)None seenNone SeenUc HealthUrine clarity by refractometry automatedOrdered By: Christina Jarvis on 80-98-1142Ajzursh Refractometry automated (U)ClearCleWyandot Memorial HospitalUrine glucose measurement by automated test strip (mass/volume) Ordered By: Christina Jarvis on 74-96-0339Tbhwdbv Auto test strip (U) [Mass/Vol] Normal mg/dLNormalUc HealthUrine hemoglobin detection by automated test stripOrdered By: Christina Jarvis on 40-77-0760Uilxbxoaab Auto test strip Ql (U)TraceNegativeUc HealthUrine leukocyte esterase detection by automated test stripOrdered By: Christina Jarvis on 02-04-2023 Leukocyte esterase Auto test strip Ql (U)NegativeNegativeUc HealthUrobilinogen Auto test strip (U) [Mass/Vol]Ordered By: Christina Jarvis on 56-27-5892Fqtekzclhijx (U) [Mass/Vol]Normal mg/dLNormalUc HealthWBC Auto (Bld) [#/Vol]Ordered By: Christina Jarvis on 32-45-7294ASD (Bld) [#/Vol]4.1 10*3/uL3.8-11.6FHolzer Hospital pH Auto test strip (U)Ordered By: Christina Jarvis on 33-60-9595sW (U)7.0 [pH] 5.0-9.0Uc HealthH PYLORI TISSUEon 12-22-2022H PYL TISSUE, UREASENegativeNormalNEGATIVEThe [facility] HospitalComment on above: Performed By: #### HPYLT #### [facility] [address] [address] [address] Raffy HoytAmbulatory Clinical Summaryon 06-19-9040Hxiusoycht Clinical Summary{9s-5y-47-30-21-zr-37-68-7g-15-70-2e-64-70-ae-31}CD:535509UlhflqFospogWayne HospitalAmbulatory Clinical Summary {4f-g9-5p-24-h4-w4-04-24-3a-3a-34-6g-a0-c0-db-9b}CD:492669PobbibXirsbeOhioHealth Grady Memorial HospitalPatient Educationon 39-76-2499Slmjgtm EducationUrology Hematuria, Adult Hematuria is blood in [...] these instructions at home: Medicines ? Take rsxj-gjv-zvfqney and prescription medicines only as told by [...] the blood stops without treatment. ? Take hkht-qbc-smohqmu and prescription medicines only as told by your health care provider. ? Drink enough fluid to keep your urine clear or pale yellow. This information is not intended to replace advice given to you by your health care provider. Make sure you discuss any questions you have with your health care provider. Document Released: 10/10/2006 Document Revised: 03/05/2020 Document Reviewed: 11/12/2017 [employer] Patient Education ? 2019 [employer]are.[facility] Urology Office/Clinic Noteon 99-72-2573Qrkufai Office/Clinic NoteChief Complaint 3 week f/u to cysto This patient is here to complete his hematuria work-up. She had recent cystoscopic examination. Sheis here to review labs. [facility] Staff Pt is here for a [...] Moisés Nye, URO [address] [place] [id number]- Additional Instructions: prn Patient Education Hematuria, Adult [...] evidence of tumors obstructions or mucosal lesions. [facility] Memorial HospitalComment on above:Result Comment: Electronically Signed By: Dave Krueger MD, Moisés Nye\.br\Date and Time Signed: 03/12/2109:24 EDT\.br\Electronically Co-Signed By: Elizabet Elliott MA\.br\Date and Time Co- Signed: 03/12/21 09:07 EDTLab Reportson 48-52-4300Bic Reports [id number]#1.00CD:127NoWayne HospitalRAD - CT Reporton 78-39-6269FCX - CT Report [id number]#1.00CD:127NoWayne HospitalUroVysion Fish and Urine Cyto (P4 Labs)on 49-33-9024VDMSWT & UCDiagnosis InfoInvalid Interpretation [facility] CenterComment on above: Result Comment: A:Urine,Urine:Voided [...] by : on: 02/19/2021 10:26:09Performed By: #### [id number] ####[facility] [address] [facility], [place]Rzckrt Summary.on 81-30-8616Mtdglc Summary. CD:650340NZ:0291151UJs1nUw+PGhlYWQ+RR1KADNmL31asQVpsM2NG6qVBN6SQFVSGSGXLW2IBS4je OB1NYvdI5OqrtOd [file] c2U6 (more content not included)...NormalWayne HospitalConsent for Procedure/Surgeryon 98-96-1006Qwfdiuw for Procedure/Surgery [id number]#1.00CD:127Ohio[facility] Memorial HospitalConsent for Treatmenton 99-58-6734Agrcuao for Treatment [id number]#1.00CD:[address] [place], [place] [address]Discharge Instructionson 67-65-5641Ijnfipnzj Instructions [id number]#1.00CD:[address] [place], [place] [address]IntraOperative Documentson 10-28-5675YswujSqztfoayi Documents [id number]#1.00CD:127NormalFisher Kennedy Krieger InstituteMain OR Intraoperative Recordon 24-89-5418Drrh OR Intraoperative Record IntraOp Document Type FTURO Summary Primary Physician: Moisés Acosta Jr., MD Finalized Date/Time: 02/12/21 14:26:27 Pt. Name: KAYLEIGH BROWN /Sex: 1950 Female Med Rec #: [id number] Physician: Moisés Acosta Jr., MD Financial #: [id number] Pt. Type: O Room/Bed: / Admit/Disch: 02/12/21 13:00:12 - Institution: Case Times FTURO Entry 1 Patient Times In Room 02/12/21 14:17:00 Out Room 02/12/21 14:26:00 Procedure Times Start 02/12/21 14:23:00 Stop 02/12/21 14:24:00 Anesthesia Times Last Modified By: Bhavani Roldan RN 02/12/21 14:26:22 Case Attendance FTURO Entry 1 Entry 2 Entry 3 Case Attendee Moisés Acosta Jr., MD [place] CAD DESIGN ENGINEER, Bhavani Walters RN Role Performed Surgeon - Primary Scrub - Primary Bird Raiser - Primary Time In 02/12/21 14:17:00 02/12/21 [...] Krueger MD, Moisés Nye, Verified (If Participants [place] MARSHALL, Guerita Pham, Applicable) Bhavani Roldan RN [...] Signatures Signed By: Bhavani Roldan RN 02/12/21 14:26Ohio[facility] HospitalMain OR Preoperative Recordon 66-28-6527Kxaq OR Preoperative RecordHolding Area Document Type FTURO Summary Primary Physician: Moisés Acosta Jr., MD Finalized Date/Time: 02/12/21 13:28:02 Pt. Name: STEPHANIE KAYLEIGHVero Bingham D.O.B./Sex: 1950 Female Med Rec #: [id number] Physician: Moisés Acosta Jr., MD Financial #: [id number] Pt. Type: O Room/Bed: / Admit/Disch: 02/12/21 [...] 02/12/21 13:20 Yuli MASCORRO, Bhavani Levine 02/12/21 13:28NoWayne HospitalOperative Reporton 97-46-1357Szpqcdiem ReportPatient: KAYLEIGH BROWN Age: 70 years Sex: [...] CT scan and urine studies at that time..[facility] Comment on above:Result Comment: Electronically Signed By: Dave Krueger MD, Moisés yNe\.br\Date and Time Signed: 02/12/2114:27 EDTUroVysion Fish and Urine Cyto (P4 Labs)on 87-72-8248BIXK Method of ExtractionVoidedNoWayne HospitalComment on above:Performed By: #### [id number] ####[facility] [address] [place], [place]BAWT Number of Ejzf6Mwbverh Interpretation [facility] CenterComment on above:Performed By: #### [id number] ####[facility], [id number] SpecimenUrineNoWayne HospitalComment on above:Performed By: #### [id number] ####[facility] [place], [place]ECTZ Type of ServiceTechnical Only [facility] HospitalComment on above:Performed By: #### [id number] ####[address] [address] [facility], [place]Bsykg on [id number]#1.00CD:127Normal [facility] 94-79-3179Pgvpkzfhs From: Margaret Downs MA To: EU - [...] fill out and fax back- will call [facility] and get a new specimen 02/12/21 at [facility]. Cx form was faxed- [facility] From: Marisol Swain To: EU - Clinical; Sent: 01/27/2021 11:43:45 EDT Show up: 02/10/2021 11:43:00 EDT Subject: CT Reminder/Recall being done at [facility] prior to 02/12/21 done, CT is in patients chart. will go over at time of Cysto 02/12/21.NormalWayne Hospital UroVysion Fish and Urine Cyto (P4 Labs)on 72-60-5885JWLFDQ & UCDiagnosis Info Invalid Interpretation [facility] CenterComment on above:Result Comment: Gross Description Electronically signed by : on: 02/11/2021 12:26:14Performed By: #### [id number] ####[facility] [address] [place], [place]Vxs-Djnnzggovdirn Formon 09-16-7102Zit-Certification Form [id number]#1.00CD:127NoWayne HospitalAmbulatory Clinical Summaryon 43-20-8421Fcgonxnimb Clinical Summary {0w-d3-20-1x-02-5x-94-7e-j1-73-p8-l1-0d-05-d1-00}CD:594312UvcptrJdqoeqWayne HospitalPatient Educationon 84-62-6527Ouwsxem EducationUrology Hematuria, Adult Hematuria is blood in [...] these instructions at home: Medicines ? Take bgod-uoi-qjbrwaw and prescription medicines only as told by [...] the blood stops without treatment. ? Take mnak-vlp-iarhdaq and prescription medicines only as told by [...] Reviewed: 11/12/2017 Elsevier Patient Education ? 2019 Definicare.[facility] Pre-Authorization for Medical Treatmenton 00-03-6366Avo-Authorization for Medical [id number]#1.00CD:127[facility] Memorial HospitalUroVysion Fish and Urine Cyto (P4 Labs)on 27-20-0847VOJB Method of ExtractionVoidedOhioHealth Grady Memorial HospitalComment on above: Performed By: #### [id number] ####[facility] [address] [place], [place] [id number] Number of Rkjj4Tkbjevj Interpretation Code Wayne HospitalComment on above:Performed By: #### [id number] ####[facility] [address] [place], [place]UVUC SpecimenUrineOhioHealth Grady Memorial HospitalComment on above:Performed By: #### [id number] ####[facility] [address] [facility], [place]FLOA Type of ServiceTechnical OnlyOhioHealth Grady Memorial HospitalComment on above:Performed By: #### [id number] ####[facility] [address] [facility] [id number] Office/Clinic Noteon 32-12-9310Uvhpgyp Office/Clinic NoteChief Complaint gross hematuria HPI Staff [...] Will order Local anesthesia. ABX sent to [facility] in [place]. Ordered: CT Abdomen/Pelvis w/ Contrast Urnls Dip Stick Auto w/o Microscopy POC 18150 Urology Procedure Order 2. Other urethral stricture, female (N35.82: Other urethral stricture, female) S/p Cysto/UD 09/21/2018. Ordered: Urology Procedure Order Orders: ciprofloxacin, 500 mg = 1 tab(s), Oral, Daily, Take 1 day prio to Cysto and 1 after Cysto completed, X 2 day(s), # 2 tab(s), Refills(s) 0, Pharmacy: [facility]/pharmacy #[id number], 175, cm, 01/27/21 10:28:00 EDT, Height/Length Dosing, 90, kg, 01/27/21 10:28:00 EDT, Weight Dosing I have reviewed the previous health record information and history for this pt. from Dr. Acosta. Follow-up With When Contact Information Dave Krueger MD, Moisés [address] Additional Instructions: Patient Education Hematuria, Adult [...] Social History Alcohol - (more content not included)...[facility] HospitalComment on above:Result Comment: Electronically Signed By: Dave Krueger MD, Moisés Nye\.br\Date and Time Signed: 01/27/2111:15 EDT\.br\Electronically Co-Signed By: Elizabet Elliott MA\.br\Date and Time Co-Signed: 01/27/21 11:06 EDTHIP LEFT 1 OR 2 VWS WITH PELVISon 13-28-5819GBI LEFT 1 OR 2 VWS WITH PELVISUnC[facility] Clinic [facility] Department of Radiology [address] [place] [address] Patient Name: KAYLEIGH BROWN : 1950 Sex: F Age: Race: White Pt. Location: Patient Status: Ordered Date: 01/02/2019 1:50:00 PM Completed Date: 01/02/2019 01:59 PM Requesting Provider: JAZMIN AVILA Attending Provider: Report Copy To: Signs & Symptoms: S72.92XD Unsp fracture of left femur, subs for clos fx w routn heal I10 History: [place] Comments: , , , Ordering Provider - [...] spine Electronically signed by:Mila Hernandez. 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 Transcribed by: [email or web address], User Resident: Electronically Signed by: CHUCKIE HARRIS @ 11/27/2018 10:59 [facility] HealthComment on above:Order Comment: , , , Ordering Provider - JAZMIN AVILA PA-C , HIP LEFT 1 OR 2 VWS WITH PELVISon 27-43-7201BRH LEFT 1 OR 2 VWS WITH PELVISUnCleveland Clinic Mercy Hospital Department of Radiology [address] [place] [phone] Patient Name: KAYLEIGH BROWN : 1950 [...] alignment Electronically signed by:Chuckie Harris. Transcribed by: [email or web address], User Resident: Electronically Signed by: CHUCKIE HARRIS @ 10/18/2018 10:38 [facility] HealthComment on above:Order Comment: , , , Ordering Provider - JAZMIN AVILA PA-C , CBC COMPLETE BLOOD COUNTon 62-93-0422Tubjjifanph distribution width Ratio (RBC)14.9 %Ebqflh18.5-15.0The Memorial HospitalComment on above:Order Comment: Yes: Add to Previous draw if ablePerformed By: #### [id number] #### [facility] [address] [place] [address], [facility] HOSPITALHematocrit Volume Fraction (Bld)26.6 %Low36.0-45.0The Memorial HospitalComment on above:Order Comment: Yes: Add to Previous draw if ablePerformed By: #### [id number] #### [facility] [address] [place] [address], [facility] HOSPITALHemoglobin mass conc (Bld)8.5 g/dLLow12.0-15.0The Memorial HospitalComment on above:Order Comment: Yes: Add to Previous draw if ablePerformed By: #### [id number] #### [facility] [address] [place] [address], [facility] Entitic mass (RBC)29.7 vzMudzwk59.0-33.0The Memorial HospitalComment on above:Order Comment: Yes: Add to Previous draw if ablePerformed By: #### [id number] #### [facility] [address] [place] [address], [facility]ARK[facility]C mass conc (RBC)32.0 g/uVXdorik01.0-35.0The Memorial HospitalComment on above:Order Comment: Yes: Add to Previous draw if ablePerformed By: #### [id number] #### [facility] [address] [place] [address], [facility] Entitic volume (RBC)93.0 rKKkhpvb48.0-98.0The Memorial HospitalComment on above:Order Comment: Yes: Add to Previous draw if ablePerformed By: #### [id number] #### [facility] [address] [place] [address], USANucleated RBC/100 WBC Ratio (Bld)0 %Normal0-0The Memorial HospitalComment on above:Order Comment: Yes: Add to Previous draw if ablePerformed By: #### [id number] #### [facility] [address] [place] [address], USAPLAT EPU447 10*3/oWIitt160-652Loz Memorial HospitalComment on above:Order Comment: Yes: Add to Previous draw if able Performed By: #### [id number] #### [facility] [address] [place] [address], USARBC #/vol (Bld)2.86 10*6/uLLow3.80-5.00The Memorial HospitalComment on above:Order Comment: Yes: Add to Previous draw if ablePerformed By: #### [id number] #### [facility] [address] [place] [address], USAWBC #/vol (Bld)5.72 10*3/uLNormal4.00-10.60The Memorial HospitalComment on above:Order Comment: Yes: Add to Previous draw if ablePerformed By: #### [id number] #### [facility] [address] [place] [address], USABASIC METABOLIC PANELon 94-95-2894Ndibtrj mass conc8.9 mg/dLNormal8.6-10.3The Memorial HospitalComment on above:Order Comment: No: Do not add to previous drawPerformed By: #### [id number] #### [facility] [address] [place] [address], USAChloride molar ddrw717 mmol/ZXoxqws42-790Xdk Memorial HospitalComment on above:Order Comment: No: Do not add to previous drawPerformed By: #### [id number] #### [facility] [address] [place] [address], USACO2 molar conc26 mmol/YLzizal66-28Zsj Memorial HospitalComment on above:Order Comment: No: Do not add to previous draw Performed By: #### [id number] #### [facility] [address] [place] [address], USACreatinine mass conc0.62 mg/dLNormal0.60-1.20The Memorial HospitalComment on above:Order Comment: No: Do not add to previous drawPerformed By: #### [id number] #### [facility] [address] [place] [address], USAGFR/1.73 sq M predicted among blacks MDRD vol rate/area (S/P/Bld)mL/min/{1.73_m2}Normal>60The Memorial HospitalComment on above:Order Comment: No: Do not add to previous drawPerformed By: #### [id number] #### [facility] [address] [place] [address], USAGFR/1.73 sq M predicted among non-blacks MDRD vol rate/area (S/P/Bld)mL/min/{1.73_m2}Normal>60The [facility] Comment on above:Order Comment: No: Do not add to previous drawPerformed By: #### [id number] #### [facility] [address] [place] [address], USAGlucose mass ykqd022 mg/qAQfbb65-520Hjb Memorial HospitalComment on above:Order Comment: No: Do not add to previous drawPerformed By: #### [id number] #### [facility] [address] [place] [place] [address], USAPotassium molar conc4.4 mmol/LNormal3.5-5.1The Memorial HospitalComment on above:Order Comment: No: Do not add to previous drawPerformed By: #### [id number] #### [facility] [address] [place] [address], USASodium molar sfgh284 mmol/JKcqgzx409-193Xqj Memorial HospitalComment on above:Order Comment: No: Do not add to previous drawPerformed By: #### [id number] #### [facility] [address] [place] [address], USAUrea nitrogen mass conc12 mg/dLNormal7-25The Memorial HospitalComment on above:Order Comment: No: Do not add to previous drawPerformed By: #### [id number] #### [facility] [address] [facility] [place] [address], [facility] HOSPITALCBC COMPLETE BLOOD COUNTon 04-55-4953Dojdlggdlif distribution width Ratio (RBC)14.8 %Tgbjme27.5-15.0The Memorial HospitalComment on above:Order Comment: No: Do not add to previous draw Performed By: #### [id number] #### [facility] [address] [facility] [place] [address], [facility]AL HOSPITALHematocrit Volume Fraction (Bld)27.9 %Low36.0-45.0The Memorial HospitalComment on above:Order Comment: No: Do not add to previous drawPerformed By: #### [id number] #### [facility] [address] [facility] [place] [address], [facility]AL HOSPITALHemoglobin mass conc (Bld)9.1 g/dLLow12.0-15.0The Memorial HospitalComment on above:Order Comment: No: Do not add to previous drawPerformed By: #### [id number] #### [facility] [address] [facility] [place] [address], [facility] Entitic mass (RBC)29.9 qoXoghoj90.0-33.0The Memorial HospitalComment on above:Order Comment: No: Do not add to previous drawPerformed By: #### [id number] #### [facility] [address] [place] [address], [facility]AL HOSPITALMCHC mass conc (RBC)32.6 g/bKHasczv62.0-35.0The Memorial HospitalComment on above:Order Comment: No: Do not add to previous drawPerformed By: #### [id number] #### [facility] [address] [place] [address], [facility] HOSPITALMCV Entitic volume (RBC)91.8 bWBmmaoh70.0-98.0The Memorial HospitalComment on above:Order Comment: No: Do not add to previous drawPerformed By: #### [id number] #### [facility] [address] [place] [address], USANucleated RBC/100 WBC Ratio (Bld)0 %Normal0-0The Memorial HospitalComment on above:Order Comment: No: Do not add to previous drawPerformed By: #### [id number] #### [facility] [address] [place] [address], USAPLAT TEX915 10*3/eIBdbz282-322Eee Memorial HospitalComment on above:Order Comment: No: Do not add to previous draw Performed By: #### [id number] #### [facility] [address] [place] [address], [facility]AL HOSPITALRBC #/vol (Bld)3.04 10*6/uLLow3.80-5.00The Memorial HospitalComment on above:Order Comment: No: Do not add to previous drawPerformed By: #### [id number] #### [facility] [address] [place] [address], USAWBC #/vol (Bld)6.22 10*3/uLNormal4.00-10.60The Memorial HospitalComment on above:Order Comment: No: Do not add to previous drawPerformed By: #### [id number] #### [facility] [address] [place] [address], USABASIC METABOLIC PANELon 51-47-8418Bubyfxv mass conc8.4 mg/dLLow8.6-10.3The Memorial HospitalComment on above:Order Comment: No: Do not add to previous drawPerformed By: #### [id number] #### [facility] [address] [place] [address], USAChloride molar hvud235 mmol/CAkpvht17-274Sev Memorial HospitalComment on above:Order Comment: No: Do not add to previous drawPerformed By: #### [id number] #### [facility] [address] [place] [address], USACO2 molar conc27 mmol/YWcrnpp94-45Uns Memorial HospitalComment on above:Order Comment: No: Do not add to previous draw Performed By: #### [id number] #### [facility] [address] [place] [address], USACreatinine mass conc0.60 mg/dLNormal0.60-1.20The Memorial HospitalComment on above:Order Comment: No: Do not add to previous drawPerformed By: #### [id number] #### [facility] [address] [place] [address], USAGFR/1.73 sq M predicted among blacks MDRD vol rate/area (S/P/Bld)mL/min/{1.73_m2}Normal>60The Memorial HospitalComment on above:Order Comment: No: Do not add to previous drawPerformed By: #### [id number] #### [facility] [address] [place] [address], USAGFR/1.73 sq M predicted among non-blacks MDRD vol rate/area (S/P/Bld)mL/min/{1.73_m2}Normal>60The [facility] Comment on above:Order Comment: No: Do not add to previous drawPerformed By: #### [id number] #### [facility] [address] [place] [address], USAGlucose mass slig895 mg/uZIqom76-644Ohz Memorial HospitalComment on above:Order Comment: No: Do not add to previous drawPerformed By: #### [id number] #### [facility] [address] [place] [address], USAPotassium molar conc4.2 mmol/LNormal3.5-5.1The Memorial HospitalComment on above:Order Comment: No: Do not add to previous drawPerformed By: #### [id number] #### [facility] [address] [place] [address], USASodium molar whoc411 mmol/QWsn853-855Cji Memorial HospitalComment on above:Order Comment: No: Do not add to previous drawPerformed By: #### [id number] #### [facility] [address] [facility] [place] [address], USAUrea nitrogen mass conc11 mg/dLNormal7-25The Memorial HospitalComment on above:Order Comment: No: Do not add to previous drawPerformed By: #### [id number] #### [facility] [address] [facility] [place] [address], [facility] HOSPITALCB W/DIFFon [id number] BASOPHILS0.0 10*3/uLNormal 0.0-0.2The Memorial HospitalComment on above:Performed By: #### [id number] #### [facility] [address] [facility] [place] [address], [facility] HOSPITALABS IMM GRANS0.3 10*3/uLHigh0.0-0.2The Memorial HospitalComment on above:Performed By: #### [id number] #### [facility] [address] [facility] [place] [address], USAABS NEUTROPHILS4.1 10*3/uLNormal1.6-7.6The Memorial HospitalComment on above:Performed By: #### [id number] #### [facility] [address] [facility] [place] [address], USABasophils #/vol (Bld)0.5 %Normal0.0-1.0The Memorial HospitalComment on above:Performed By: #### [id number] #### [facility] [address] [facility] [place] [address], [facility] HOSPITALEosinophils #/vol (Bld)0.2 10*3/uLNormal0.0-0.5The Memorial HospitalComment on above:Performed By: #### [id number] #### [facility] [address] [facility] [place] [address], [facility] HOSPITALEosinophils/100 WBC (Bld)3.1 %Normal0.0-6.0The Memorial HospitalComment on above:Performed By: #### [id number] #### [facility] [address] [place] [address], [facility] HOSPITALErythrocyte distribution width Ratio (RBC)14.8 %Normal 11.5-15.0The Memorial HospitalComment on above:Performed By: #### 60563 #### [facility] [address] [place] [address], USAHematocrit Volume Fraction (Bld)24.3 %Low36.0-45.0The Memorial HospitalComment on above:Performed By: #### [id number] #### [facility] [address] [place] [address], [facility] HOSPITALHemoglobin mass conc (Bld)7.9 g/dLLow12.0-15.0The Memorial HospitalComment on above:Performed By: #### [id number] #### [facility] [address] [facility] [place] [address], [facility]AL HOSPITALIMMATURE GRANS5.0 %High0.0-1.0The Memorial HospitalComment on above:Performed By: #### [id number] #### [facility] [address] [place] [id number], [facility]IONAL HOSPITALLymphocytes #/vol (Bld)0.8 10*3/uLLow1.2-4.0The Memorial HospitalComment on above:Performed By: #### [id number] #### [facility] [address] [place] [address], [facility] HOSPITALLymphocytes/100 WBC (Bld)12.9 %Low20.0-45.0The Memorial HospitalComment on above:Performed By: #### [id number] #### [facility] [address] [facility] [place] [address], [facility] Entitic mass (RBC)29.5 fkFqdihu82.0-33.0The Memorial HospitalComment on above:Performed By: #### [id number] #### [facility] [address] [facility] [place] [address], [facility]C mass conc (RBC)32.5 g/pNKilzal84.0-35.0The Memorial HospitalComment on above:Performed By: #### [id number] #### [facility] [address] [facility] [place] [address], [facility] Entitic volume (RBC)90.7 pLIzzgpx13.0-98.0The Memorial HospitalComment on above:Performed By: #### [id number] #### [facility] [address] [facility] [place] [address], [facility] HOSPITALMonocytes #/vol (Bld)0.6 10*3/uLNormal0.1-1.0The Memorial HospitalComment on above:Performed By: #### [id number] #### [facility] [address] [facility] [place] [address], FIMMCWLN61.6 %Normal5.0-12.0The Memorial HospitalComment on above:Performed By: #### 31600 #### [facility] [address] [place] [address], USANeutrophils/100 WBC (Bld)67.9 %Kquibk05.0-72.0The Memorial HospitalComment on above:Performed By: #### [id number] #### [facility] [address] [place] [address], USANucleated RBC/100 WBC Ratio (Bld)0 %Normal0-0The Memorial HospitalComment on above:Performed By: #### [id number] #### [facility] [address] [place] [address], USAPLAT SSS016 10*3/lPFjct116-280Gwf Memorial HospitalComment on above:Performed By: #### [id number] #### [facility] [address] [place] [address], [facility]AL HOSPITALRBC #/vol (Bld)2.68 10*6/uLLow3.80-5.00The Memorial HospitalComment on above:Performed By: #### [id number] #### [facility] [address] [facility] [address], USAWBC #/vol (Bld)6.04 10*3/uLNormal4.00-10.60The Memorial HospitalComment on above:Performed By: #### [id number] #### [facility] [address] [place] [address], USAHEMOGLOBINon 00-08-8649Weoslqxqqo mass conc (Bld)8.7 g/dL Low12.0-15.0The Memorial HospitalComment on above:Order Comment: No: Do not add to previous drawPerformed By: #### [id number] #### [facility] [address] [place] [address], USABASIC METABOLIC PANELon 13-62-8229Elnhifx mass conc8.7 mg/dLNormal8.6-10.3The Memorial HospitalComment on above:Order Comment: No: Do not add to previous drawPerformed By: #### [id number] #### [facility] [address] [place] [address], USAChloride molar vjov675 mmol/GNkrnee73-909Oyo Memorial HospitalComment on above:Order Comment: No: Do not add to previous drawPerformed By: #### [id number] #### [facility] [address] [place] [address], USACO2 molar conc28 mmol/ZSpzrww49-55Bjp Memorial HospitalComment on above:Order Comment: No: Do not add to previous draw Performed By: #### [id number] #### [facility] [address] [place] [address], USACreatinine mass conc0.71 mg/dLNormal0.60-1.20The Memorial HospitalComment on above:Order Comment: No: Do not add to previous drawPerformed By: #### [id number] #### [facility] [address] [place] [address], USAGFR/1.73 sq M predicted among blacks MDRD vol rate/area (S/P/Bld)mL/min/{1.73_m2}Normal>60The Memorial HospitalComment on above:Order Comment: No: Do not add to previous drawPerformed By: #### [id number] #### [facility] [address] [place] [address], USAGFR/1.73 sq M predicted among non-blacks MDRD vol rate/area (S/P/Bld)mL/min/{1.73_m2}Normal>60The [facility] Comment on above:Order Comment: No: Do not add to previous drawPerformed By: #### [id number] #### [facility] [address] [place] [address], USAGlucose mass rydc219 mg/jLFbvv14-795Jbq Memorial HospitalComment on above:Order Comment: No: Do not add to previous drawPerformed By: #### [id number] #### [facility] [address] [place] [address], USAPotassium molar conc4.2 mmol/LNormal3.5-5.1The Memorial HospitalComment on above:Order Comment: No: Do not add to previous drawPerformed By: #### [id number] #### [facility] [address] [place] [address], USASodium molar dokc734 mmol/OIua046-030Ces Memorial HospitalComment on above:Order Comment: No: Do not add to previous drawPerformed By: #### [id number] #### [facility] [address] [place] [address], USAUrea nitrogen mass conc13 mg/dLNormal7-25The Memorial HospitalComment on above:Order Comment: No: Do not add to previous drawPerformed By: #### 59454 #### [facility] [address] [place] [address], USACBC COMPLETE BLOOD COUNTon 90-38-6894Gmdlphvpcoc distribution width Ratio (RBC)14.2 %Okusvz99.5-15.0The Memorial HospitalComment on above:Order Comment: No: Do not add to previous draw Performed By: #### [id number] #### [facility] [address] [place] [address], USAHematocrit Volume Fraction (Bld)19.8 %Low36.0-45.0The Memorial HospitalComment on above:Order Comment: No: Do not add to previous drawPerformed By: #### [id number] #### [facility] [address] [place] [address], USAHemoglobin mass conc (Bld)6.5 g/dLLow12.0-15.0The Memorial HospitalComment on above:Order Comment: No: Do not add to previous drawPerformed By: #### [id number] #### [facility] [facility] [address] [place] [address], [facility] Entitic mass (RBC)30.0 euEpgujh47.0-33.0The Memorial HospitalComment on above:Order Comment: No: Do not add to previous drawPerformed By: #### [id number] #### [facility] [address] [place] [address], [facility]C mass conc (RBC)32.8 g/pFPincze93.0-35.0The Memorial HospitalComment on above:Order Comment: No: Do not add to previous drawPerformed By: #### [id number] #### [facility] [address] [place] [address], [facility] Entitic volume (RBC)91.2 xEUwjkrc76.0-98.0The Memorial HospitalComment on above:Order Comment: No: Do not add to previous drawPerformed By: #### [id number] #### [facility] [address] [place] [address], [facility] HOSPITALNucleated RBC/100 WBC Ratio (Bld)0 %Normal0-0The Memorial HospitalComment on above:Order Comment: No: Do not add to previous drawPerformed By: #### [id number] #### [facility] [address] [place] [address], USAPLAT XKL716 10*3/aCZbse417-620Yog Memorial HospitalComment on above:Order Comment: No: Do not add to previous draw Performed By: #### [id number] #### [facility] [address] [place] [address], [facility] HOSPITALRBC #/vol (Bld)2.17 10*6/uLLow3.80-5.00The Memorial HospitalComment on above:Order Comment: No: Do not add to previous drawPerformed By: #### [id number] #### [facility] [address] [place] [address], USAWBC #/vol (Bld)5.87 10*3/uLNormal4.00-10.60The Memorial HospitalComment on above:Order Comment: No: Do not add to previous drawPerformed By: #### [id number] #### [facility] [address] [place] [address], USAHEMOGLOBINon 88-88-3690Uxdrccnzif mass conc (Bld)8.5 g/dL Low12.0-15.0The Memorial HospitalComment on above:Order Comment: No: Do not add to previous drawPerformed By: #### [id number] #### [facility] [address] [place] [address], USARBC'S 2 UNITSon 54-05-4218AJXBHLMUHR INTERP 1CWright-Patterson Medical CenterComment on above:Order Comment: No: Do not add to previous drawPerformed By: #### [id number] #### [facility] [address] [place] [address], USACROSSMATCH INTERP 2CWright-Patterson Medical CenterComment on above:Order Comment: No: Do not add to previous draw Performed By: #### [id number] #### [facility] [address] [place] [address], USAProtein mass ropr122 g/dLNormKing's Daughters Medical Center OhioComment on above:Order Comment: No: Do not add to previous draw Performed By: #### [id number] #### [facility] [address] [place] [address], USAProtein mass concPTNoCincinnati Children's Hospital Medical CenterComment on above:Order Comment: No: Do not add to previous drawResult Comment: Result changed by IF on 10/05/2018 10:04. The previous value was XM. Result changed by IF on 10/06/2018 00:30. The previous value was IS.Performed By: #### [id number] #### [facility] [address] [place] [address], USAResult Comment: Result changed by IF on 10/05/2018 13:18. The previous value was XM. Result changed by IF on 10/06/2018 00:30. The previous value was IS.Protein mass gmqm188 g/dLFairfield Medical CenterComment on above:Order Comment: No: Do not add to previous drawPerformed By: #### [id number] #### [facility] [address] [place] [address], USAUNIT ABO 1[facility] Comment on above:Order Comment: No: Do not add to previous drawPerformed By: #### [id number] #### [facility] [address] [place] [address], USAUNIT ABO 2[facility] Comment on above:Order Comment: No: Do not add to previous drawPerformed By: #### [id number] #### [facility] [address] [place] [address], USAUNIT ID [id number] Children's Hospital Medical CenterComment on above:Order Comment: No: Do not add to previous draw Performed By: #### [id number] #### [facility] [address] [place] [address], USAUNIT ID [id number] HospitalComment on above:Order Comment: No: Do not add to previous draw Performed By: #### [id number] #### [facility] [address] [place] [address], USAUNIT RH 1PosiProMedica Memorial HospitalComment on above:Order Comment: No: Do not add to previous drawPerformed By: #### [id number] #### [facility] [address] [place] [address], USAUNIT RH 2PositiveNoCincinnati Children's Hospital Medical CenterComment on above:Order Comment: No: Do not add to previous drawPerformed By: #### [id number] #### [facility] [address] [place] [address], USATYPE AND SCREENon 25-03-6490HVB INTERPRETATIONONoCincinnati Children's Hospital Medical CenterComment on above:Performed By: #### 36084 #### [facility] [address] [place] [address], USARH INTERPRETATIONPositiveFairfield Medical CenterComment on above:Performed By: #### [id number] #### [facility] [address] [place] [address], USABASIC METABOLIC PANELon 56-56-4110Ofxpntx mass conc8.5 mg/dLLow8.6-10.3The Memorial HospitalComment on above:Order Comment: No: Do not add to previous drawPerformed By: #### [id number] #### [facility] [address] [place] [address], USAChloride molar zljm923 mmol/UGwonrx58-304Csp Memorial HospitalComment on above:Order Comment: No: Do not add to previous drawPerformed By: #### [id number] #### [facility] [address] [place] [address], USACO2 molar conc26 mmol/YQtchgm26-93Rtg Memorial HospitalComment on above:Order Comment: No: Do not add to previous draw Performed By: #### [id number] #### [facility] [address] [place] [address], USACreatinine mass conc0.63 mg/dLNormal0.60-1.20The Memorial HospitalComment on above:Order Comment: No: Do not add to previous drawPerformed By: #### [id number] #### [facility] [address] [place] [address], USAGFR/1.73 sq M predicted among blacks MDRD vol rate/area (S/P/Bld)mL/min/{1.73_m2}Normal>60The Memorial HospitalComment on above:Order Comment: No: Do not add to previous drawPerformed By: #### [id number] #### [facility] [address] [place] [address], USAGFR/1.73 sq M predicted among non-blacks MDRD vol rate/area (S/P/Bld)mL/min/{1.73_m2}Normal>60[facility] Comment on above:Order Comment: No: Do not add to previous drawPerformed By: #### [id number] #### [facility] [address] [place] [address], USAGlucose mass fimm714 mg/hUCata14-264Hfy Memorial HospitalComment on above:Order Comment: No: Do not add to previous drawPerformed By: #### [id number] #### [facility] [address] [place] [address], USAPotassium molar conc4.6 mmol/LNormal3.5-5.1The Memorial HospitalComment on above:Order Comment: No: Do not add to previous drawPerformed By: #### [id number] #### [facility] [address] [place] [address], USASodium molar xfra497 mmol/JDxr644-254Soc Memorial HospitalComment on above:Order Comment: No: Do not add to previous drawPerformed By: #### [id number] #### [facility] [address] [place] [address], USAUrea nitrogen mass conc17 mg/dLNormal7-25The Memorial HospitalComment on above:Order Comment: No: Do not add to previous drawPerformed By: #### [id number] #### [facility] [address] [place] [address], USACalcium mass conc8.5 mg/dLLow8.6-10.3The Memorial HospitalComment on above:Order Comment: No: Do not add to previous drawPerformed By: #### [id number] #### [facility] [address] [place] [address], USAChloride molar gmhy912 mmol/LVmtsdw06-685Bov Memorial HospitalComment on above:Order Comment: No: Do not add to previous drawPerformed By: #### [id number] #### [facility] [address] [place] [address], USACO2 molar conc21 mmol/VMpnfyh67-09Dkc Memorial HospitalComment on above:Order Comment: No: Do not add to previous draw Performed By: #### [id number] #### [facility] [address] [place] [address], USACreatinine mass conc0.55 mg/dLLow0.60-1.20The Memorial HospitalComment on above:Order Comment: No: Do not add to previous drawPerformed By: #### [id number] #### [facility] [address] [place] [address], USAGFR/1.73 sq M predicted among blacks MDRD vol rate/area (S/P/Bld)mL/min/{1.73_m2}Normal>60The Memorial HospitalComment on above:Order Comment: No: Do not add to previous drawPerformed By: #### 50065 #### [facility] [address] [place] [address], USAGFR/1.73 sq M predicted among non-blacks MDRD vol rate/area (S/P/Bld)mL/min/{1.73_m2}Normal>60[facility] Comment on above:Order Comment: No: Do not add to previous drawPerformed By: #### [id number] #### [facility] [address] [place] [address], USAGlucose mass btbt888 mg/dHQjab45-197Ypn Memorial HospitalComment on above:Order Comment: No: Do not add to previous drawPerformed By: #### [id number] #### [facility] [address] [place] [address], USAPotassium molar conc4.8 mmol/LNormal3.5-5.1The Memorial HospitalComment on above:Order Comment: No: Do not add to previous drawPerformed By: #### [id number] #### [facility] [address] [facility] [place] [address], USASodium molar gpub547 mmol/VGvz188-307Gwv Memorial HospitalComment on above:Order Comment: No: Do not add to previous drawPerformed By: #### [id number] #### [facility] [address] [facility] [place] [address], USAUrea nitrogen mass conc15 mg/dLNormal7-25The Memorial HospitalComment on above:Order Comment: No: Do not add to previous drawPerformed By: #### 79107 #### [facility] [address] [facility] [place] [address], USACBC COMPLETE BLOOD COUNTon 19-28-2089Ojpaczqvtms distribution width Ratio (RBC)13.9 %Bvxqpe36.5-15.0The Memorial HospitalComment on above:Order Comment: No: Do not add to previous draw Performed By: #### 38939 #### [facility] [address] [place] [address], USAHematocrit Volume Fraction (Bld)25.6 %Low36.0-45.0The Memorial HospitalComment on above:Order Comment: No: Do not add to previous drawPerformed By: #### [id number] #### [facility] [address] [facility] [place] [address], USAHemoglobin mass conc (Bld)8.1 g/dLLow12.0-15.0The Memorial HospitalComment on above:Order Comment: No: Do not add to previous drawPerformed By: #### [id number] #### [facility] [address] [place] [address], [facility] Entitic mass (RBC)29.5 hwTidlfy30.0-33.0The Memorial HospitalComment on above:Order Comment: No: Do not add to previous drawPerformed By: #### 95401 #### [facility] [address] [place] [id number], [facility] mass conc (RBC)31.6 g/dLLow32.0-35.0The Memorial HospitalComment on above:Order Comment: No: Do not add to previous drawPerformed By: #### [id number] #### [facility] [address] [facility] [place] [address], [facility] Entitic volume (RBC)93.1 xRLcpnlc26.0-98.0The Memorial HospitalComment on above:Order Comment: No: Do not add to previous drawPerformed By: #### 86227 #### [facility] [address] [facility] [place] [address], [facility] HOSPITALNucleated RBC/100 WBC Ratio (Bld)0 %Normal0-0The Memorial HospitalComment on above:Order Comment: No: Do not add to previous drawPerformed By: #### [id number] #### [facility] [address] [facility] [place] [address], USAPLAT UPZ044 10*3/nZRvxovg447-161Pkt Memorial HospitalComment on above:Order Comment: No: Do not add to previous draw Performed By: #### [id number] #### [facility] [address] [place] [address], [facility] HOSPITALRBC #/vol (Bld)2.75 10*6/uLLow3.80-5.00The Memorial HospitalComment on above:Order Comment: No: Do not add to previous drawPerformed By: #### 69003 #### [facility] [address] [place] [address], [facility] #/vol (Bld)5.86 10*3/uLNormal4.00-10.60The Memorial HospitalComment on above:Order Comment: No: Do not add to previous drawPerformed By: #### 61838 #### [facility] [address] [place] [address], [facility] HOSPITALOperative Reporton [id number] ReportMR#: [id number] [facility] Pt[facility] Name: Kayleigh Brown Room #: [id number] Discharge Date: Birthdate: 1950 OPERATIVE REPORT DATE OF SURGERY: 10/02/2018 SURGEON: Pete Garcia M.D. PIER HAND: Dr. Thornton., Dr. Harpal Azar, Dr. George Patel, Dr. Ruperto Hernandez. PREOPERATIVE DIAGNOSIS: Left hip Orlando B2 periprosthetic femur fracture. POSTOPERATIVE DIAGNOSIS: Left hip Orlando B2 periprosthetic femur fracture. PROCEDURE PERFORMED: 1. [...] extremity. She was subsequently diagnosed with a Orlando B2 periprosthetic femur fracture at the site [...] the lateral decubitus position using the hip water resource manager system. All bony prominences were well padded. [...] Patel MD Date Trans: 10/03/2018 02:44 A/july DN_JN:[id number] cc: Christina Jarvis D.O. [address] [place] [address]SxntadAvnFairfield Medical CenterVITAMIN D 25-HYDROXYon 24-04-7444ATERAKA D 25-OH27.7 ng/mLLow30.0-80.0The Memorial HospitalComment on above:Result Comment: >80.0 Toxicity possible Performed By: #### [id number] #### [facility] [address]*ANAEROBIC CULTUREon 10-02-2018*ANAEROBIC CULTUREClinical Report: (D) Specimen/Source: SWAB/INTRAOP SPEC Collected: 10/02/2018 17:38 Status: Final Last Updated: 10/07/2018 08:20 (1) 1.) LEFT HIP CULT RES (Final) No Anaerobes Isolated 5 DaysNoCincinnati Children's Hospital Medical CenterComment on above:Order Comment: No: Do not add to previous drawPerformed By: #### [id number] #### [facility] [address] [facility] [place] [address], [facility]*WOUND CULTUREon 10-02-2018*WOUND CULTUREClinical Report: (D) Specimen/Source: WOUND/INTRAOP SPEC Collected: 10/02/2018 17:38 Status: Final Last Updated: 10/07/2018 07:52 (1) 1.) LEFT HIP GRAM (Final) No Polys Seen No Bacteria Seen CULT RES (Final) No Growth Day 5NoCincinnati Children's Hospital Medical CenterComment on above: Order Comment: No: Do not add to previous drawPerformed By: #### [id number] #### [facility] [address] [facility] [place] [address], USABASIC METABOLIC PANELon 40-10-5801Ffdsygp mass conc8.5 mg/dLLow8.6-10.3The Memorial HospitalComment on above:Order Comment: No: Do not add to previous drawPerformed By: #### [id number], [id number] #### [facility] [address] [facility] [place] [address], USAChloride molar xakt893 mmol/GInwjer80-734Eoj Memorial HospitalComment on above:Order Comment: No: Do not add to previous drawPerformed By: #### 09714, 90026 #### [facility] [address] [place] [address], USACO2 molar conc18 mmol/CEep61-10Swm Memorial HospitalComment on above:Order Comment: No: Do not add to previous draw Performed By: #### 11280, 23424 #### [facility] [address] [place] [address], USACreatinine mass conc0.66 mg/dLNormal0.60-1.20The Memorial HospitalComment on above:Order Comment: No: Do not add to previous drawPerformed By: #### 98476, 44486 #### [facility] [address] [place] [address], USAGFR/1.73 sq M predicted among blacks MDRD vol rate/area (S/P/Bld)mL/min/{1.73_m2}Normal>60The Memorial HospitalComment on above:Order Comment: No: Do not add to previous drawPerformed By: #### 38610, 04667 #### [facility] [address] [place] [address], USAGFR/1.73 sq M predicted among non-blacks MDRD vol rate/area (S/P/Bld)mL/min/{1.73_m2}Normal>60[facility] Comment on above:Order Comment: No: Do not add to previous drawPerformed By: #### 83025, 76103 #### [facility] [address] [place] [address], USAGlucose mass apvx876 mg/hINkbh47-491Mwv Memorial HospitalComment on above:Order Comment: No: Do not add to previous drawPerformed By: #### 44914, 97512 #### [facility] [address] [place] [address], USAPotassium molar conc4.8 mmol/LNormal3.5-5.1The Memorial HospitalComment on above:Order Comment: No: Do not add to previous drawPerformed By: #### 59741, 43794 #### [facility] [address] [place] [address], USASodium molar tqno878 mmol/CXrp984-267Rcd Memorial HospitalComment on above:Order Comment: No: Do not add to previous drawPerformed By: #### 35892, 32962 #### [facility] [address] [place] [address], USAUrea nitrogen mass conc13 mg/dLNormal7-25The Memorial HospitalComment on above:Order Comment: No: Do not add to previous drawPerformed By: #### 96392, 10691 #### [facility] [address] [place] [address], [facility] COMPLETE BLOOD COUNTon 45-41-9125Rmrslrmaoxa distribution width Ratio (RBC)14.1 %Wmknrk79.5-15.0The Memorial HospitalComment on above:Order Comment: No: Do not add to previous draw Performed By: #### 98298 #### [facility] [address] [facility] [place] [address], [facility] HOSPITALHematocrit Volume Fraction (Bld)25.9 %Low36.0-45.0The Memorial HospitalComment on above:Order Comment: No: Do not add to previous drawPerformed By: #### 26061 #### [facility] [address] [facility] [place] [address], [facility] HOSPITALHemoglobin mass conc (Bld)8.6 g/dLLow12.0-15.0The Memorial HospitalComment on above:Order Comment: No: Do not add to previous drawPerformed By: #### 58112 #### [facility] [address] [facility] [place] [address], [facility] Entitic mass (RBC)30.2 neJihriw78.0-33.0The Memorial HospitalComment on above:Order Comment: No: Do not add to previous drawPerformed By: #### 39295 #### [facility] [address] [facility] [place] [address], [facility] mass conc (RBC)33.2 g/rCPrxpxl71.0-35.0The Memorial HospitalComment on above:Order Comment: No: Do not add to previous drawPerformed By: #### 79093 #### [facility] [address] [facility] [place] [address], [facility] Entitic volume (RBC)90.9 zXFiwxrt33.0-98.0The Memorial HospitalComment on above:Order Comment: No: Do not add to previous drawPerformed By: #### 43703 #### [facility] [address] [place] [address], USANucleated RBC/100 WBC Ratio (Bld)0 %Normal0-0The Memorial HospitalComment on above:Order Comment: No: Do not add to previous drawPerformed By: #### 76922 #### [facility] [address] [place] [address], USAPLAT GLG614 10*3/xOJtjthh962-940Yss Memorial HospitalComment on above:Order Comment: No: Do not add to previous draw Performed By: #### 97217 #### [facility] [address] [place] [address], [facility] HOSPITALRBC #/vol (Bld)2.85 10*6/uLLow3.80-5.00The Memorial HospitalComment on above:Order Comment: No: Do not add to previous drawPerformed By: #### 43109 #### [facility] [address] [place] [address], [facility] HOSPITALWBC #/vol (Bld)8.00 10*3/uLNormal4.00-10.60The Memorial HospitalComment on above:Order Comment: No: Do not add to previous drawPerformed By: #### 69464 #### [facility] [address] [place] [address], USAErythrocyte distribution width Ratio (RBC)14.2 %Normal 11.5-15.0The Memorial HospitalComment on above:Order Comment: This order is a replacement of the rejected order with accession number [id number].Performed By: #### 14825 #### [facility] [address] [place] [address], USAHematocrit Volume Fraction (Bld)27.0 %Low36.0-45.0The Memorial HospitalComment on above:Order Comment: This order is a replacement of the rejected order with accession number [id number].Performed By: #### 23999 #### [facility] [address] [facility] [place] [address], [facility] HOSPITALHemoglobin mass conc (Bld)8.7 g/dLLow12.0-15.0The Memorial HospitalComment on above:Order Comment: This order is a replacement of the rejected order with accession number [id number].Performed By: #### 87788 #### [facility] [address] [facility]. [place] [address], [facility] Entitic mass (RBC)29.6 urFvvdpr50.0-33.0The Memorial HospitalComment on above:Order Comment: This order is a replacement of the rejected order with accession number [id number].Performed By: #### 28141 #### [facility] [address] [facility] [place] [address], [facility] mass conc (RBC)32.2 g/dWFttxbq06.0-35.0The Memorial HospitalComment on above:Order Comment: This order is a replacement of the rejected order with accession number [id number].Performed By: #### 20670 #### [facility] [address] [place] [address], [facility] Entitic volume (RBC)91.8 kDNwxnap99.0-98.0The Memorial HospitalComment on above:Order Comment: This order is a replacement of the rejected order with accession number [id number].Performed By: #### 40818 #### [facility] [address] [place] [address], [facility] HOSPITALNucleated RBC/100 WBC Ratio (Bld)0 %Normal0-0The Memorial HospitalComment on above:Order Comment: This order is a replacement of the rejected order with accession number [id number].Performed By: #### 13878 #### [facility] [address] [place] [address], USAPLAT FPR014 10*3/iGKhrkww439-406Eju Memorial HospitalComment on above:Order Comment: This order is a replacement of the rejected order with accession number [id number].Performed By: #### 97595 #### [address] [place] [address], [facility] HOSPITALRBC #/vol (Bld)2.94 10*6/uLLow3.80-5.00The Memorial HospitalComment on above:Order Comment: This order is a replacement of the rejected order with accession number [id number].Performed By: #### 70684 #### [place] [address], [facility] HOSPITALWBC #/vol (Bld)5.98 10*3/uLNormal4.00-10.60The Memorial HospitalComment on above:Order Comment: This order is a replacement of the rejected order with accession number [id number].Performed By: #### 96499 #### [place] [address], [facility] LEFT 1 OR 2 VWS WITH PELVISon 63-77-4097KPR LEFT 1 OR 2 VWS WITH PELVISUnCleveland Clinic [facility] Department of Radiology [address] [place] [id number] Patient Name: KAYLEIGH BROWN : 1950 Sex: F Age: Race: White Pt. Location: [id number] Patient Status: I Ordered Date: 10/02/2018 7:15:00 [...] Documentation Electronically signed by:Chuckie Harris. Transcribed by: [email or web address], User Resident: Electronically Signed by: CHUCKIE HARRIS @ 10/03/2018 05:06 UC Medical CenterComment on above:Order Comment: No: Do not add to previous drawPORTABLE HIP LEFT 1 OR 2 VWS WITH PELVISon 44-37-7557ALGZLHDY HIP LEFT 1 OR 2 VWS WITH PELVISUnCleveland Clinic [facility] Department of Radiology [address] [place] [phone] Patient Name: KAYLEIGH BROWN : 1950 Sex: F Age: Race: White Pt. Location: [id number] Patient Status: I Ordered Date: 10/02/2018 8:20:00 PM Completed Date: 10/02/2018 08:47 PM Requesting Provider: HARPAL AZAR Attending Provider: PETE GACRIA Report Copy To: Signs & Symptoms: Post [...] around the femur in good alignment Right [place] hip with mild arthritis IMPRESSION: Postoperative left total hip in satisfactory alignment with soft tissue drain and air Electronically signed by:Chuckie Harris. Transcribed by: [id number], User Resident: Electronically Signed by: CHUCKIE HARRIS @ 10/03/2018 10:05 AMNormalMount Carmel Health SystemComment on above:Order Comment: No: Do not add to previous drawSODIUM BLOODon 45-58-2311Iobtrq molar lkdq863 mmol/YGlt242-696Uoj Memorial HospitalComment on above:Order Comment: No: Do not add to previous drawPerformed By: #### 07868 #### [facility] [address] [place] [address], USAVENOUS BLOOD GASon 19-79-8705HHOY EXCESS2 mmol/LNormal-2-2 The Memorial HospitalComment on above:Performed By: #### 53700 #### [facility] [address] [place] [address], USADELIVERY SYSTEMSUNKNOWN - ORNormalThe Memorial HospitalComment on above:Performed By: #### 66701 #### [facility] [address] [place] [address], USAHCO3 molar conc (Bld)27 mmol/TXygqmf53-56Xik Memorial HospitalComment on above:Performed By: #### 97027 #### [facility] [address] [place] [address], USAOxygen ppres (Bld)35 mm[Hg]Pxv37-495Siy Memorial HospitalComment on above:Performed By: #### 52293 #### [facility] [address] [place] [address], USAOxygen saturation in Blood65.8 %Akhwpd21.0-85.0The Memorial HospitalComment on above:Performed By: #### 40071 #### [facility] [address] [place] [address], CQFYYC280 xmMaTltjfq66-10Skk Memorial HospitalComment on above:Performed By: #### 04060 #### [facility] [address] [place] [address], USApH (Bld)7.40 [pH]Normal7.33-7.43The Memorial HospitalComment on above:Performed By: #### 63744 #### [facility] [address] [place] [address], USAVITAMIN D 25-HYDROXYon 69-37-1078OSTHJAP D 25-OH27.4 ng/mL Low30.0-80.0The Memorial HospitalComment on above:Result Comment: >80.0 Toxicity possiblePerformed By: #### 42673, 81902 #### [facility] [address] [place] [address], USABASIC METABOLIC PANELon 37-77-3664Xjboone mass conc9.1 mg/dLNormal8.6-10.3The Memorial HospitalComment on above:Order Comment: No: Do not add to previous drawPerformed By: #### 10815 #### [facility] [address] [place] [address], USAChloride molar conc98 mmol/LPxfvjb12-575Gsw Memorial HospitalComment on above:Order Comment: No: Do not add to previous drawPerformed By: #### 48759 #### [facility] [address] [place] [address], USACO2 molar conc26 mmol/MQzosee58-82Oac Memorial HospitalComment on above:Order Comment: No: Do not add to previous draw Performed By: #### 78969 #### [facility] [address] [place] [address], USACreatinine mass conc0.66 mg/dLNormal0.60-1.20The Memorial HospitalComment on above:Order Comment: No: Do not add to previous drawPerformed By: #### 63426 #### [facility] [address] [place] [address], USAGFR/1.73 sq M predicted among blacks MDRD vol rate/area (S/P/Bld)mL/min/{1.73_m2}Normal>60The Memorial HospitalComment on above:Order Comment: No: Do not add to previous drawPerformed By: #### 25491 #### [facility] [address] [place] [address], USAGFR/1.73 sq M predicted among non-blacks MDRD vol rate/area (S/P/Bld)mL/min/{1.73_m2}Normal>60The [facility] Comment on above:Order Comment: No: Do not add to previous drawPerformed By: #### 93685 #### [facility] [address] [place] [address], USAGlucose mass bybs244 mg/kPRkyb99-421Vbn Memorial HospitalComment on above:Order Comment: No: Do not add to previous drawPerformed By: #### 60074 #### [facility] [address] [place] [address], USAPotassium molar conc4.2 mmol/LNormal3.5-5.1The Memorial HospitalComment on above:Order Comment: No: Do not add to previous drawPerformed By: #### 38781 #### [facility] [address] [place] [address], USASodium molar ninq331 mmol/YOsg911-476Jax Memorial HospitalComment on above:Order Comment: No: Do not add to previous drawPerformed By: #### 74463 #### [facility] [address] [place] [address], USAUrea nitrogen mass conc13 mg/dLNormal7-25The Memorial HospitalComment on above:Order Comment: No: Do not add to previous drawPerformed By: #### 55957 #### [facility] [address] [facility] [address], [facility] HOSPITALCBC COMPLETE BLOOD COUNTon 12-44-0198Uxbeuvbptjy distribution width Ratio (RBC)14.2 %Lzlgqo72.5-15.0The Memorial HospitalComment on above:Order Comment: No: Do not add to previous draw Performed By: #### 80024 #### [facility] [address] [place] [address], [facility] HOSPITALHematocrit Volume Fraction (Bld)26.7 %Low36.0-45.0The Memorial HospitalComment on above:Order Comment: No: Do not add to previous drawPerformed By: #### 34880 #### [facility] [address] [facility] [place] [address], USAHemoglobin mass conc (Bld)8.7 g/dLLow12.0-15.0The Memorial HospitalComment on above:Order Comment: No: Do not add to previous drawPerformed By: #### 13759 #### [facility] [address] [place] [address], [facility] Entitic mass (RBC)30.2 hzBepcjf97.0-33.0The Memorial HospitalComment on above:Order Comment: No: Do not add to previous drawPerformed By: #### 66161 #### [facility] [address] [place] [address], [facility] mass conc (RBC)32.6 g/iQGetdrw40.0-35.0The Memorial HospitalComment on above:Order Comment: No: Do not add to previous drawPerformed By: #### 68125 #### [facility] [address] [place] [address], [facility] Entitic volume (RBC)92.7 fVXlmuvc15.0-98.0The Memorial HospitalComment on above:Order Comment: No: Do not add to previous drawPerformed By: #### 28268 #### [facility] [address] [place] [address], [facility] HOSPITALNucleated RBC/100 WBC Ratio (Bld)0 %Normal0-0The Memorial HospitalComment on above:Order Comment: No: Do not add to previous drawPerformed By: #### 76278 #### [facility] [address] [place] [address], [facility] HOSPITALPLAT YBP230 10*3/xTQhrgsh956-086Kwo Memorial HospitalComment on above:Order Comment: No: Do not add to previous draw Performed By: #### 81088 #### [facility] [address] [place] [address], [facility] HOSPITALRBC #/vol (Bld)2.88 10*6/uLLow3.80-5.00The Memorial HospitalComment on above:Order Comment: No: Do not add to previous drawPerformed By: #### 67482 #### [facility] [address] [place] [address], [facility] HOSPITALWBC #/vol (Bld)6.63 10*3/uLNormal4.00-10.60The Memorial HospitalComment on above:Order Comment: No: Do not add to previous drawPerformed By: #### 23527 #### [address] [address], USACT LOWER EXTREMITY WO CONTRAST LEFTon [id number] LOWER EXTREMITY WO CONTRAST LEFTUnC[facility] Department of Radiology [address] [place] [id number] Patient Name: KAYLEIGH BROWN : 1950 Sex: F Age: Race: White Pt. Location: [id number] Patient Status: I Ordered Date: 10/01/2018 4:45:00 [...] stem. Electronically signed by:Chuckie Harris. Transcribed by: [email or web address], User Resident: Electronically Signed by: CHUCKIE HARRIS @ 10/02/2018 09:09 [facility] HealthComment on above:Order Comment: R/O Fractures, CT scan of entire femur for preop evaluationFEMUR LEFT 2 [facility] [id number] LEFT 2 [facility] Department of Radiology [address] [place] [address] [id number] Patient Name: KAYLEIGH BROWN : 1950 Sex: F Age: Race: White Pt. Location: [id number] Patient Status: I Ordered Date: 10/01/2018 3:55:00 [...] CT Electronically signed by:Chuckie Harris. Transcribed by: [email or web address], User Resident: Electronically Signed by: CHUCKIE HARRIS @ 10/02/2018 09:33 AMNormalThe Memorial HospitalComment on above:Order Comment: R/O FXPROTHROMBIN TIMEon 57-71-2049MBI Coag RelTime (PPP)1.12 {INR}Normal0.91-1.16The Memorial HospitalComment on above:Order Comment: No: Do [...] OPTIMAL THERAPEUTIC RANGE. CHEST 1995;108:231S-246S.Performed By: #### [id number] #### [facility] [address] [place] [address], [facility]IONAL HOSPITALProthrombin time (PT) Coag time (PPP)14.4 nVslgfn90.3-14.8 The Memorial HospitalComment on above:Order Comment: No: Do not add to previous drawResult Comment: ALL RESULTS MUST BE INTERPRETED WITH RESPECT TO BLOOD DRAWING ARTIFACT OR DILUTION ERROR OF ANTICOAGULANT AT THE TIME OF SAMPLING.Performed By: #### [id number] #### [facility] [address] [place] [address], USARBC'S 2 UNITSon 05-74-4736AFECKILGBL INTERP 1CWright-Patterson Medical CenterComment on above:Performed By: #### [id number] #### [facility] [address] [place] [address], [facility] REGIONAL HOSPITALCROSSMATCH INTERP 2CWright-Patterson Medical CenterComment on above:Performed By: #### [id number] #### [facility] [address] [facility] [place] [address], [facility] HOSPITALProtein mass ycfo864 g/dLNoCincinnati Children's Hospital Medical CenterComment on above:Performed By: #### [id number] #### [facility] [address] [place] [address], [facility] HOSPITALProtein mass concRENoCincinnati Children's Hospital Medical CenterComment on above:Result Comment: Result changed by IF on 10/02/2018 16:58. The previous value was XM. Result changed by IF on 10/02/2018 21:55. The previous value was IS. Result changed by IF on 10/05/2018 06:35. The previous value was XM.Performed By: #### [id number] #### [facility] [address] [place] [address], USAUNIT ABO 1[facility] Comment on above:Performed By: #### [id number] #### [facility] [address] [place] [address], USAUNIT ABO 2[facility] Comment on above:Performed By: #### [id number] #### [facility] [address] [place] [address], USAUNIT ID [id number] Medical CenterComment on above:Performed By: #### [id number] #### [facility] [address] [place] [address], USAUNIT ID [id number] Medical CenterComment on above:Performed By: #### [id number] #### [facility] [address] [place] [address], USAUNIT RH 1PosiProMedica Memorial HospitalComment on above:Performed By: #### [id number] #### [facility] [address] [place] [address], USAUNIT RH 2PositiveFairfield Medical CenterComment on above:Performed By: #### [id number] #### [facility] [address] [place] [address], USATYPE AND SCREENon 07-09-6035XTV INTERPRETATIONShelby Memorial HospitalComment on above:Performed By: #### [id number] #### [facility] [address] [place] [address], USARH INTERPRETATIONPositiveFairfield Medical CenterComment on above:Performed By: #### [id number] #### [facility] [place] Vital Signs Date TimeVital SignValuePerforming DvquieqluScpmqvdd80-86-8703 09:04-0400Body ifiskf221.72 cmDaifeanyi Jarvis DO Work Phone: [facility]08-20-2025 09:04-0400 Body mass index (BMI) [Ratio]31.3 kg/o5Lxiveifeanyi Jarvis DO Work Phone: [phone]55[facility]08-20-2025 09:04-0400 Body mhhffboclkf55 [degF]Christina Jarvis DO Work Phone: [phone] [address]08-20-2025 09:04-0400 Body cdsemk56.44 kgDaifeanyi Lockwoodzac DO Work Phone: [phone]65[facility]08-20-2025 09:04-0400 Diastolic blood ayjasize73 mm[Hg]Christina Jarvis DO Work Phone: [phone]63[facility]08-20-2025 09:04-0400 Heart rate83 /minDavikaron Matheus DO Work Phone: [phone] [address]08-20-2025 09:04-0400 SaO2% (BldA) [Mass fraction]98 %Christina Jarvis DO Work Phone: [phone]08-20-2025 09:04-0400 Systolic blood zoadfspk424 mm[Hg]Christina Jarvis DO Work Phone: [phone]11-08-2024 11:55-0500 Body nravhy294.72 cmUc Health11-08-2024 11:55-0500Body mass index (BMI) [Ratio]33.5 kg/x3AjiooumtcUc Health11-08-2024 11:55-0500Body fggpogaryzp68.6 [degF][facility]11-08-2024 11:55-0500Body .01 kgUc Health11-08-2024 11:55-0500Diastolic blood aejeflaz94 mm[Hg][facility] 08-31-2024 11:55-0500Heart rate89 /[facility] 08-31-2024 11:55-0500Respiratory rate16 /[facility] 08-31-2024 11:55-7039DwW2% (BldA) [Mass fraction]97 %[facility]11-08-2024 11:55-0500Systolic blood yemkawgl462 mm[Hg][facility]08-05-2024 14:42-0400Body ghzcha100.41 cmDO Christina Jarvis Work Phone: [phone] [address]08-05-2024 14:42-0400 Body mass index (BMI) [Ratio]46.3 kg/m2DO Christina Jarvis Work Phone: [phone] [address]08-05-2024 14:42-0400 Body shlfxergsve60 [degF]DO Christina Jarvis Work Phone: [phone] [address]08-05-2024 14:42-0400 Body dbfxbu59.97 kgDO Christina Jarvis Work Phone: [phone]08-05-2024 14:42-0400 Diastolic blood ejikhufv46 mm[Hg]DO Christina Jarvis Work Phone: [phone] [address]08-05-2024 14:42-0400 Heart rate94 /Yvette Jarvis Work Phone: [phone] [address]08-05-2024 14:42-0400 Respiratory rate18 /Yvette Jarvis Work Phone: [phone])68922 [address]08-05-2024 14:42-0400 SaO2% (BldA) [Mass fraction]95 %DO Christina Jarvis Work Phone: [phone] [address]08-05-2024 14:42-0400 Systolic blood jsooftrt010 mm[Hg]DO Christina Jarvis Work Phone: [phone]03-18-2022 11:30-0400 Body nsqzku739.26 cmDaifeanyi Jarvis Other [facility] Other 03-18-2022 11:30-0400Body mass index (BMI) [Ratio] 32.63 kg/s4ZzkbnChristina Jarvis Other [facility] Other 03-18-2022 11:30-0400Body iizafwlajwq46.6 [degF]Christina Jarvis Other [facility] Other 03-18-2022 11:30-0400Body mfjyyb792.25 kgChristina Jarvis Other [facility] Other 03-18-2022 11:30-0400Diastolic blood eldvdpvl59 mm[Hg] Christina Jarvis Other [facility] Other 03-18-2022 11:30-0400Respiratory rate18 /minDzaheer Jarvis Other [facility] Other 03-18-2022 11:30-7256UaG9% (BldA) [Mass fraction]98 % Christina Jarvis Other [facility] Other 03-18-2022 11:30-0400Systolic blood lnkwzpfa199 mm[Hg] Christina Jarvis Other [facility] Other Encounters Encounter DateEncounter TypeCare ProviderFacilityStart: 20-44-7432yddsldzaul Christina JarvisFacility:[facility]ertart: 06-12-2025 End: 33-52-6448tdmfuuiawnGycmz Girvin DO Work Phone: [facility] Work Phone: Start: 06-12-2025 End: 50-87-4669Hgmiewi encounter procedureDaifeanyi Jarvis DO-[facility] Work Phone: Start: 06-10-2025 End: 79-79-4427Tsgmsno encounter procedureDaifeanyi Jarvis DO-[facility] Work Phone: Start: 06-10-2025 End: 56-64-4510kfmuvvhymsNzqrp Girvin DO Work Phone: [facility] Work Phone: Start: 08-31-2024 End: 66-92-8324xuapgnumqaLwaamndky [facility] Work Phone: Start: 08-31-2024 End: 95-49-0365Bebmdwv encounter procedureUn[facility] Work Phone: Start: 05-28-2024 End: 68-41-8615uufenhjtakDZ Christina Jarvis Work Phone: [facility] Work Phone: Start: 05-28-2024 End: 29-49-0628Ieksxzp encounter procedureDO Christina Jarvis Work Phone: [facility] Work Phone: Start: 05-24-2024 End: 59-85-4785augsndaozmNL David Girvin Work Phone: [facility] Work Phone: Start: 05-24-2024 End: 73-99-8891Mnbvabm encounter procedureDO Christina Jarvis Work Phone: [facility] Work Phone: Start: 28-40-5083Yul-patient / Non-visitDO Christina Jarvis Work Phone: [facility] Work Phone: Start: 05-18-2023 End: 19-98-6375djzqoscuifBpcmr Girvin Other [facility] Other Start: 55-40-6231Ukgukuwmw encounterDaifeanyi [facility] [place]vueStart: 02-04-2023 End: 33-97-7739rloaabnyezJL David Matheus Work Phone: [facility] Work Phone: Start: 02-04-2023 End: 07-91-8505Mxdreir encounter procedureDO Christina Jarvis Work Phone: [facility] Work Phone: Start: 01-28-2023 End: 95-72-1428adxqdxbdeaZlmsa Girvin Other [facility] Other Start: 45-52-9228Ownhrshsb encounterDavikaron Cole [facility] BellevueStart: 12-22-2022 End: 88-55-6200qoowyezqpyTJ MARY MAY .Facility:Z9Vjnuz: 10-11-2022 End: 82-17-5620rqgfeslyhhXiiqk Girvin Other [facility] Other Start: 36-94-0687Btcqzaadk encounterDavikaron Cole [facility] BellevueStart: 09-29-2022 End: 16-69-0020pydsxjyobbJcqwk Girvin Other [facility] Other Start: 08-56-2165Pmdooonxx encounterDavikaron CunninghamG Family Medicine BellevueStart: 01-08-2022 End: 29-03-0839dbgvgzumbuTksgr Girvin Other noR[facility] [address] Other Start: 82-61-0392Lsukbc outpatient visit 25 minutes Christina Cole [facility] BellevueStart: 01-02-2019 End: 61-81-3697Osippck encounter procedureGREGORY OTTOFacility:[facility]tart: 11-27-2018 End: 90-27-9821Wulkfmk encounter procedureGREGORY OTTOFacility:[facility]tart: 10-18-2018 End: 09-00-4090Vevedsh encounter procedureGREGORY OTTOFacility:[facility]tart: 10-01-2018 End: 60-83-9038Zmmklsevqq and management of inpatientNABIL EBRAHEIMFacility:[facility] Procedures DateProcedureProcedure DetailPerforming ClinicianStart: 57-20-6650Faipw culture Christina Jarvis Work Phone: Start: 58-02-9079Amnlsgsa screenNABIL EBRAHEIMComment on above:Performed By: #### [id number] #### [facility] [address] [place] [address], USAStart: 04-37-2863LYSQMDS OF SYNTH SUB FROM L HIP JT, FEMORAL, OPEN APPROACHNABIL EBRAHEIMStart: 56-33-4882HZYHFOS L HIP JT, FEMORAL W METAL, UNCEMENT, OPENNABIL EBRAHEIMStart: 83-16-1395FHDTSGUWKS LEFT FEMORAL SHAFT WITH INT FIX, OPEN APPROACHNABIL EBRAHEIMStart: 90-82-7551Pkiwwjda screen PETE EBRAHEIMComment on above:Performed By: #### [id number] #### [facility] [address] [place] [address], USAStart: 12-78-6168ZNWBRXFIN NONAUT RED BLOOD CELLS IN PERIPH VEIN, PERCNABIL EBRAHEIM Plan of Treatment DateCare ActivityDetailAuthorStart: 86-99-8968Hkbqxfae identified in Urine by CultureUrine [facility] Dublintart: 02-00-4976Xlifc [address] Hospitaltart: 33-40-4664Ksuyhjvk identified in Urine by [facility] Dublintart: 50-86-0824Lkvwyfnq identified in Urine by [facility] HospitalBacteria identified in Urine by [facility] HospitalComprehensive metabolic 1999 panel - Serum or PlasmaUc Health Comprehensive metabolic 2000 panel - Serum or PlasmaUc HealthGlucose measurement estimated from glycated hemoglobinUc HealthGlucose measurement estimated from glycated hemoglobinUc HealthGlucose measurement estimated from glycated hemoglobin Uc HealthHemoglobin A1c/Hemoglobin.total in Blood Uc HealthHemoglobin A1c/Hemoglobin.total in Blood Uc HealthUrine cultureSeton Medical Center Immunizations Immunization DateImmunizationNotesCare NmkmiwdbUtikqlde62-91-1325BIVVC-24 Comirnaty (Pfizer) Tri-Sucrose 12+[facility]10-22-2024 influenza, high dose seasonal, preservative-freeUc Health01-04-2024RSV, preF3, adj, pfUc Health10-02-2023 COVID-19 (PFIZER) 12Y and olderUc Health 70-48-7048Qacbmmfrp vaccine, quadrivalent, adjuvantedUc Health09-22-2022COVID-19 mRNA Bivalent Booster (Pfizer)[facility]09-22-2022Fluzone QIV High-Dose 65YR+[facility]03-18-2022Shingrix 50 MCG/0.5ML; Translations: [Shingrix 50 MCG/0.5ML] Christina Jarvis Other [facility] Other 10738378-11-1183NEPUA-26 Vaccine Pfizer - Documentation Purposes OnlyChristina Jarvis Other [facility]09-20-2021influenza, seasonal, injectableDaifeanyi Jarvis Other [facility]09-20-2021Fluzone QIV High-Dose 65YR+[facility]02-23-2021COVID-19 Vaccine Pfizer - Documentation Purposes OnlyChristina Jarvis Other [facility]02-02-2021COVID-19 Vaccine Pfizer - Documentation Purposes OnlyChristina Jarvis Other [address] [place], [place] 7464609-17-2020Seasonal trivalent influenza vaccine, adjuvanted, preservative [facility]09-17-2020influenza, seasonal, injectableDavid Girvin Other [address] [place], [place] 7464610-09-2019influenza, seasonal, injectableDavid Girvin Other [address] [place], [place] 7464610-09-2019influenza, high dose seasonal, [facility]ative[facility]10-17-2018 influenza, high dose seasonal, preservativeDelaware County Hospital10-17-2018influenza, seasonal, injectableDavid Girvin Other [address] [place], [place] 7464610-13-2017influenza, high dose seasonal, preservativeDelaware County Hospital11-07-2016 influenza, seasonal, injectableDavid Girvin Other [address] [place], [place] 7464611-04-2016 pneumococcal conjugate vaccine, 13 valentDavid Girvin Other [address] [place], [place] 7464610-20-2015 pneumococcal polysaccharide vaccine, 23 valentDavid Girvin Other [address] [place], [place] 7464610-03-2014zoster vaccine, liveDavid Girvin Other [address] [place] [address] Payers DatePayer CategoryPayerPolicy [id number] [id number] Health [id number] [id number] .[id number] .[id number] 2.0.1.443286.3.57[id number] 2.0.1.142027.3.57[id number] 2.0.1.36[id number] 2.0.1.9[id number] 2.0.1.490284.3.579.2.531 Social History DateTypeDetailFacilityUnknown if ever smokedHicksville [place] Other Sex Assigned At BirthSex Assigned At Talents GardenReverbeo [address] Other Start: 62-37-1030Qoy [facility]igned At [facility]ertart: 02-07-2023 End: 26-51-7891Gyjaixk smoking status NHISNever smoked tobacco (finding) [facility] Centertart: 94-16-0735ErwQwcxok (finding)[facility] Clinical Notes 02-12-2021 to 05-18-2023 Note Date & KujrBjphPfsbpcwf18-80-6876 Evaluation note* Encounter Date Diagnosis Assessment Notes Treatment Notes Treatment Clinical Notes Apr, Gastritis (ICD-10 - K29.70) [place] [address] Other [id number] Evaluation note* Encounter Date Diagnosis Assessment Notes Treatment Notes Treatment Clinical Notes Jan, Hypertension (ICD-10 - I10) Jan,Hyperlipidemia (ICD-10 - E78.5) Jan,Hyperglycemia (ICD-10 - R73.9) Jan,Weight loss (ICD-10 - R63.4) Jan,Hematuria (ICD-10 - R31.9) Jan,Other group home (current) drug therapy (ICD-10 - Z79.899) [facility] Other 03-18-2022 Evaluation note* Encounter Date Diagnosis [...] is 2.16 which is normal. 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 Thornton. I did recommend that she get the Shingrix vaccine series. She can obtain this at her local pharmacy. A prescription was provided. [place] [address] Other [id number] Note [id number]#1.00CD:127[facility] 02-12-2021 NoteCystoscopy ? Voiding after the [...] if you have a fever over 100 degrees.[facility] Evaluation noteNo InformationNortUpper Allegheny Health System [employer] Other Evaluation noteNo assessment information available [facility] Work Phone: Evaluation note* Diagnosis Onset Date Resolution Status Depression acuteGastritisacuteHematuriaacuteHyperglycemiaacuteHyperlipidemiaacute Hypertensionacute [facility] Work Phone: Evaluation note* Diagnosis Onset Date Resolution Status Admit Date Balance problem acuteAugust 2024 9:14amDepressionacuteAugust 2024 9:14amGastritis acuteAugust 2024 9:14amHematuriaacuteAugust 2024 9:14amHyperglycemia acuteAugust 2024 9:14amHyperlipidemiaacuteAugust 2024 9:14am HypertensionacuteAugust 2024 9:14amIntentional weight lossacuteAugust 2024 9:14am [facility] Work Phone: History general Narrative - Reported* Type Description Date Medical History Last Pap 2010; Dr. Gonsalez Medical HistoryLast Mammogram ; [facility] (normal)Medical History No history of Stress Test, Colonoscopy or CT of the Abdomen or PelvisMedical HistoryLast EKG around age 19 before surgeryMedical HistoryNo history of FracturesMedical HistoryHistory of Chicken Pox as a ChildMedical History Mamm[facility] 08-15-13; [facility]Medical HistoryFlu Vaccine and Pneumonia Vaccine 2014Medical HistoryPt has O positive bloodSurgical HistoryT & A as a childSurgical Historybilateral breast biopsies; all were benignSurgical HistoryLeft knee replacement, Dr. RandallXsiqjqig94-4-2973Rzfvgxdy Historyrt knee replacement Dr Randall02/11/urgical HistoryMRI of back - Dr HolbrookBarplul6170 Surgical HistoryXR of hip - Dr RandallXromzquk9466Gxhxmfcb HistoryPain clinic - injection left wdt8949Ptavjqkq Historymammogram -08/2016Surgical Historyhip inj Dr Randall10/2017Surgical Historymammogram01/2018Surgical HistoryCT with contrast 08/24/18urgical Historyleft hip vfmwfooxhrd84/5/2018Surgical Historyfemur fracture /8/2018Surgical HistoryCystoscopy - Dr. Acosta02/12/21 Hospitalization Historysee above [facility] Other History general Narrative - Reported* Type Description Date Medical History Last Pap 2010; Dr. Gonsalez Medical HistoryLast Mammogram ; [facility] (normal)Medical History No history of Stress Test, Colonoscopy or CT of the Abdomen or PelvisMedical HistoryLast EKG around age 19 before surgeryMedical HistoryNo history of FracturesMedical HistoryHistory of Chicken Pox as a ChildMedical History Mammogram 08-15-13; [facility]Medical HistoryFlu Vaccine and Pneumonia Vaccine 2014Medical HistoryPt has O positive bloodSurgical HistoryT & A as a childSurgical Historybilateral breast biopsies; all were benignSurgical HistoryLeft knee replacement, Dr. RandallNvwobezw67-7-5613Lvpfrfoo Historyrt knee replacement Dr Randall02/12/16urgical HistoryMRI of back - Dr HolbrookJgzyqcg9565 Surgical HistoryXR of hip - Dr RandallMzcfpqrg1513Dohjvwoo HistoryPain clinic - injection left jdf2960Revknkxv Historymammogram -08/2016Surgical Historyhip inj Dr Randall10/2017Surgical Historymammogram01/2018Surgical HistoryCT with contrast 08/24/18urgical Historyleft hip myysgbocdnj58/5/2018Surgical Historyfemur fracture locplmb44/8/2018Surgical HistoryCystoscopy - Dr. Acosta02/12/21Surgical HistoryCatartact surgeryurgical HistoryColonoscopy (colon polyp) & EGD Dr. May / see report/ repeat colonoscopy 5 years 68987-6-48Injqqrypvmxvtcd Historysee above [facility] Other Reason for referral (narrative)* Reason appt referral for colonoscopy/positive FIT Diagnosis 1 Positive occult stoo l blood test (R19.5) Referral Organization [facility] Referring Provider First Name Christina Referring Provider Last Name Matheus Referring Provider Specialty Family Prac alban Referred Organization [facility] Referred Provider Polo Lyn Referred Address [address],[address] Referred Provider Specialty Gastroentero logy Referral Priority Routine General Notes Mary Ann Maurer 09/29/2022 03:45:56 PM > referral sent p2p. pt understands that she will be contacted to schedule this appt. [facility] Other Reason for referral (narrative)No reason for referral information availableLicking Memorial Hospital Work Phone: Summary Purpose Family History [...] 023 8:27am Hospital Course Note MR#: [id number] [facility] Pt. Name: Kayleigh Brown Admitted: 10/01/2018 [...] and content) DATE CREATED AUTHOR 01/10/2019 [facility] DATE CREATED AUTHOR AUTHOR'S ORGANIZ ATION 03/16/2021 [facility] DATE CREATED AUTHOR AUTHOR'S ORGANIZ ATION 12/31/2022 [facility] DATE CREATED AUTHOR AUTHOR'S ORGANIZ ATION 08/30/2025 [facility] REASON FOR VISIT (unrecogniz ed [...] Active S tart: March 08, 2024 Saiard De Mossville , LPNAttending ProviderActiveStart: March 08, 2024 Team [...] BE BASED ON THE PRIMARY CLINICAL RECORDS. [employer] provides no warranty or guarantee of the accuracy or completeness of information in this document.
[2025-09-24 05:16] LABS: Magnesium 1.9 mg/dL (1.8-2.4)
--- OUTSIDE RECORDS SUMMARY | 2025-09-24 05:36 | XMS_ITS | CCD ---
Author Organization [facility] Care Team Providers Care Accounting Software Specialist Name Role Phone BEVERLY GARCIAIL Admitting Unavailable BEVERLY GARCIAIL Attending Unavailable CHRISTINA JARVIS Referring Unavailable CHRISTINA JARVIS Primary Care Unavailable AR Procedure Practitioner Unavailab le PETE GARCIA Surgeon [...] Unavailable DO Christina Jarvis Primary Care Provider [phone] DO Christina Jarvis Attending Provider [phone] DO Christina Jarvis Primary Care Provider [phone] DO Christina Jarvis Attending Provider [phone] Christina Jarvis DO Primary Care Provider [phone] Christina Jarvis DO Attending Provider [phone] Christina Jarvis Attending Unavailable Christina Jarvis Admitting Unavailable Christina Jarvis Primary Care Unavailable Christina Jarvis Attending Unavailable Christina Jarvis Admitting Unavailable Christina Jarvis Primary Care Unavailable Allergies Allergy ClassificationReported Allergen(s)Allergy TypeDate of OnsetReaction(s) Facility (5 sources)Acetaminophen / HYDROcodoneDrug Allergyhives?[facility] Other (10 sources)atorvastatinDrug Wawuiwt29-23-0920aqn painOhio State University [facility] (10 sources)ezetimibeDrug Rnpvwkj06-47-5054atcz't likeOhio State University [facility] Medical Center (6 sources)Acetaminophen; Translations: [acetaminophen]Drug Zumxowc40-71-7916 hives?[facility] (6 sources)HYDROcodone; Translations: [hydrocodone]Drug Vplufti11-34-4010exfzq? [facility] (1 source)atorvastatinDrug Bjdwfnj08-48-7803NcnggemzfOhio State University [facility] Center Repository (1 source)ezetimibeDrug Hglaxmj49-40-7023BvxuykvgaOhio State University [facility] Center Repository Medications Current Medications MedicationDrug Class(es)DatesSig (Normalized)Sig [...] ActiveLifitegrast (Xiidra) 5 % dropperette (2 sources)Start: 18-79-5207Rwdrtqfemfa (Xiidra) 5 % dropperette Active DROPS OPHTHALMIC May 27, 2024 11:00pmStart: 89-15-8462Hhrfstgdtxo (Xiidra) 5 % dropperette Active DROPS OPHTHALMIC May 28, 2024 12:00amlosartan potassium 50 mg oral tablet (20 sources)Angiotensin 2 Receptor BlockerStart: 17-90-9024luvn 1 tablet by mouth once dailyStart: 06-07-2024 End: 17-75-6467kpis 1 tablet by mouth once dailyLosartan 50 mg tablet Discontinued 0 .ROUTE .COMPLEX May 14, 2025 2:21pm June 12, 2025 9:3 0am TAKE 1 TABLET BY MOUTH EVERY DAYStart: 03-08-2024 End: 96-37-4035ngcj 1 tablet by mouth once dailyLosartan 50 mg tablet Discontinued 50 MG PO Daily March 08, 2024 10:23am June 07, 2024 9:22am Losartan Potassium 50 mg TAKE 1 TABLET DAILY FsbsgnOxxjtrjj-Hoc-Qhfg-Fa-Vit K- Lut (Centrum Silver Women) 8 mg iron-400 mcg-50 mcg tablet (4 sources)Start: 23-14-5613aemg 1 tablet by mouth once daily Kfoyeftr-Lgt-Qnxl-Fa-Vit K-Lut (Centrum Silver Women) 8 mg iron-400 mcg-50 mcg tablet Active 1 TAB PO Daily May 28, 2024 12:00am Complies with drug therapy Start: 90-22-5630cvlj 1 tablet by mouth once dailyStart: 52-42-6634jrou 1 tablet by mouth once kqulwMpsbkikh-Tks-Osnr-Fa-Vit K-Lut (Centrum Silver Women) 8 mg iron-400 mcg-50 mcg tablet Active 1 TAB PO Daily May 27, 2024 11:00pmStart: 96-70-4465oiak 1 tablet by mouth once ipsylOmakxgpg-Hpq-Ctok-Fa-Vit K-Lut (Centrum Silver Women) 8 mg iron-400 mcg-50 mcg tablet Active 1 TAB PO Daily May 28, 2024 12:00amomeprazole 40 mg delayed release oral capsule (20 sources)Proton Pump InhibitorStart: 05-28-2024 End: 74-69-4509Xpqyfhrywl 40 mg capsule,delayed release(DR/EC) Active 40 MG PO .COMPLEX August 01, 2024 8:13am 40 mg orally TAKE 1 CAPSULE BY MOUTH EVERY DAY 30 MINUTES BEFORE MORNING MEAL; Complies with drug therapyStart: 05-01-2024 End: 79-77-3336Zlesyvumsf 40 mg capsule,delayed release(DR/EC) Discontinued 0 .ROUTE .COMPLEX May 01, 2024 12:00pm May 28, 2024 2:56pm TAKE 1 CAPSULE BY MOUTH EVERY DAY 30 MINUTES BEFORE MORNING MEAL FOR 90 DAYSStart: 02-20-2024 End: 67-61-8570nwke 1 capsule by mouth once daily at mealtimeOmeprazole 40 mg capsule,delayed release(DR/EC) Discontinued 40 MG PO Daily February 20, 2024 3:05pmJuly 2023 12:00pm 30 min prior to a mealStart: 02-20-2024 End: 41-30-6790gelx 1 capsule by mouth every other day at mealtimeOmeprazole 40 mg capsule,delayed release(DR/EC) Discontinued 40 MG PO .QOD February 20, 2024 12:00amApril 2023 3:05pm 30 min prior to a mealOmeprazole 40 MG 1 capsule 30 min prior to a meal Orally qod Activerosuvastatin calcium 5 mg oral tablet (20 sources)HMG-CoA Reductase InhibitorStart: 61-38-1852asfg 1 tablet by mouth every other dayStart: 06-06-2024 End: 29-88-1557ozim 1 tablet by mouth every other dayRosuvastatin 5 mg tablet Discontinued 0 .ROUTE .COMPLEX May 14, 2025 2:21pm June 1259:30am TAKE 1 TABLET BY MOUTH EVERY OTHER DAYStart: 03-08-2024 End: 44-40-5405pdto 1 tablet by mouth every other dayRosuvastatin [...] Zoster Virus Nucleoside Analog DNA Polymerase InhibitorStart: 97-87-5631dyjc 1 tablet by mouth every eight hoursValtrex 1 GM 1 tablet Orally tid for 7 days Jan, Pqiaga61 hr venlafaxine 150 mg extended release oral tablet (20 sources)Serotonin and Norepinephrine Reuptake InhibitorStart: 84-35-7386kfqk 1 capsule by mouth once dailyVenlafaxine 75 mg capsule,extended release 24hr Active 75 MG PO daily June 12, 2025 12:00am Complies with drug therapyStart: 08-31-2024 End: 05-25-8953mloz 1 capsule by mouth once daily in the morningVenlafaxine 150 mg capsule,extended release 24hr Discontinued 150 MG PO Every morning August 1:00am June 12, 2025 9:22amStart: 05-28-2024 End: 03-76-7866uzka 1 tablet by mouth once dailyVenlafaxine 150 mg tablet extended release 24hr Active 150 MG PO Daily June 12, 2025 9:24am Dr Arnett Complies with drug therapyStart: 05-28-2024 End: 21-55-8517xtxn 1 capsule by mouth once dailyVenlafaxine 75 mg capsule,extended release 24hr Discontinued 75 MG PO Daily May 28, 2024 12:00am August 31, 2024 12:43pmtake 1 tablet by mouth every twenty-four hours Venlafaxine HCl ER 150 MG 1 tablet with food Orally Once a day Active Completed/Discontinued Medications MedicationDrug Class(es)DatesSig (Normalized)Sig (Original)busPIRone hydrochloride 15 mg oral tablet (17 sources)Start: 05-28-2024 End: 57-10-6893wyjk 1 tablet by mouth twice daily, then [...] (2 sources)Lymphocyte Function-Associated Antigen-1 AntagonistStart: 05-28-2024 End: 37-16-7068Jyjyewaiayb (Xiidra) 5 % dropperette Discontinued DROPS OPHTHALMIC May 28, 2024 12:00am June 12, 2025 9:21am Problems Active Problems Problem ClassificationProblemDateDocumented DateEpisodic/ChronicComplications of surgical procedures or medical care (3 sources)Periprosthetic fracture around internal prosthetic left hip joint, initial encounter; Translations:[PERIPROSTH FRACTURE AROUND INTERNAL PROSTH L HIP JT, INIT]Onset: 85-05-2981Ouzzrnah mellitus without complication (9 sources)Hyperglycemia, unspecified; Translations: [Hyperglycemia]Onset: 01-08-2022 Resolved: 51-55-2319YnyilwiuQziywqyk of white blood cells (5 sources)Decreased blood leukocyte number; Translations: [Decreased white blood cell count, unspecified]ChronicDisorders of lipid metabolism (15 sources)Hyperlipidemia; Translations: [Hyperlipidemia, unspecified]Onset: 01-08-2022 Resolved: 30-12-0622NowfsfnTgaajctly of lipid metabolism (1 source)Pure hypercholesterolemia, unspecified; Translations: [PURE HYPERCHOLESTEROLEMIA, UNSPECIFIED]Onset: 99-58-6822Shqzyxdqmjxvaz and diverticulitis (1 source)Diverticulosis of large intestine without perforation or abscess without bleeding; Translations: [DVRTCLOS LG INT NO PERF/ABSC W/O BL]Onset: 93-98-6563OvhvxvmXdmyusbjg hypertension (15 sources)Essential (primary) hypertension; Translations: [Hypertensive disorder]Onset: 10-01-2018 Resolved: 79-34-3113JihiommDgwvvrng of lower limb (4 sources)Unspecified fracture of left femur, subsequent encounter for closed fracture with routine healing; Translations: [UNSP FRACTURE OF LEFT FEMUR, SUBS FOR CLOS FX W ROUTN HEAL]Onset: 45-86-5460OqblensmNnpmgxflv and duodenitis (1 source)Unspecified chronic gastritis without bleeding; Translations: [UNS CHRONIC GASTRITIS W/O BLEEDING]Onset: 00-76-1978QquysozPgrpluikc and duodenitis (8 sources)Gastritis; Translations: [Gastritis, unspecified, without bleeding] EpisodicGastroduodenal ulcer (except hemorrhage) (1 source)Gastric ulcer, unspecified as acute or chronic, without hemorrhage or perforation; Translations: [GASTR ULCR UNS AC/CHRN W/O HEM/PERF]Onset: 97-32-7619HjykpbwGxmzhcqxofqkz symptoms and ill-defined conditions (9 sources)Hematuria, unspecified; Translations: [Blood in urine]Onset: 01-08-2022 Resolved: 87-13-9363HxseiznnUnnf disorders (12 sources)Major depressive disorder, single episode, unspecified; Translations: [Depression]Onset: 01-08-2022 Resolved: 87-92-3357HuqgmslNzjr disorders (2 sources)Major depressive disorder, single episode, unspecified; Translations: [Mood disorders]Onset: 88-96-4473Djyopoqsrvnusa (8 sources)Unilateral primary osteoarthritis, right hip; Translations: [Unilateral primary osteoarthritis, right knee]Onset: 17-53-1214FucmpzaFkywh aftercare (4 sources)Other nursing home (current) drug therapy; Translations: [OTH LONGTERM CURRENT DRUG THERAPY]Onset: 01-08-2022 Resolved: 45-62-7997MvhfafwgAijli aftercare (2 sources)Removal of sutures done; Translations: [Encounter for removal of sutures]59-02-4859JxzblaunPtuje and unspecified benign neoplasm (1 source)Benign neoplasm of sigmoid colon; Translations: [BENIGN NEOPLASM OF SIGMOID COLON]Onset: 40-82-5893CydxpcoiAoqpe and unspecified benign neoplasm (1 source)Benign neoplasm of transverse colon; Translations: [BENIGN NEOPLASM OF TRANSVERSE COLON]Onset: 84-72-3844IerhnpocXaste and unspecified benign neoplasm (1 source)Polyp of stomach and duodenum; Translations: [POLYP OF STOMACH AND DUODENUM]Onset: 37-43-4159MwngqlveWkryn connective tissue disease (2 sources)Presence of left artificial hip joint; Translations: [PRESENCE OF LEFT ARTIFICIAL HIP JOINT]Onset: 66-04-0647ZgrjkrxDfsvg connective tissue disease (2 sources)Other specified soft tissue disorders; Translations: [OTHER SPECIFIED SOFT TISSUE DISORDERS]Onset: 97-29-5575UdrewpzzPcxrq gastrointestinal disorders (4 sources)Other fecal abnormalities; Translations: [OTHER FECAL ABNORMALITIES] Onset: 47-12-9601LeqnexxfUcrry nervous system disorders (2 sources)Impairment of balance; Translations: [Other abnormalities of gait and mobility]47-18-9355IgkvbiemZuxtn nervous system disorders (1 source)Other abnormalities of gait and mobility; Translations: [Other abnormalities of gait and mobility]Onset: 96-22-3585AbhywrxhClpuk nutritional; endocrine; and metabolic disorders (1 source)Obesity, unspecified; Translations: [OBESITY UNSPECIFIED]Onset: 71-93-8957TnhxbopRqmcd nutritional; endocrine; and metabolic disorders (1 source)Body mass index (BMI) 33.0-33.9, adult; Translations: [BODY MASS INDEX BMI 33.0-33.9 ADULT]Onset: 68-02-8263EpvdqxgZbwwo nutritional; endocrine; and metabolic disorders (3 sources)Abnormal weight loss; Translations: [Abnormal weight loss]Onset: 01-08-2022 Resolved: 99-37-3167CiemgzmoTodhh nutritional; endocrine; and metabolic disorders (2 sources)Intentional weight jitm49-76-1666ZmgaeipjAymnz screening for suspected conditions (not mental disorders or infectious disease) (5 sources)Abnormal findings on diagnostic imaging of breast; Translations: [Other abnormal and inconclusive findings on diagnostic imaging of breast] EpisodicSpondylosis; intervertebral disc disorders; other back problems (1 source)Spondylosis without myelopathy or radiculopathy, lumbar region; Translations: [SPONDYLOSIS W/O MYELOPATHY OR RADICULOPATHY, LUMBAR REGION]Onset: 55-65-0224PqpyvwxYjuhuryizkcz (1 source)LEFT PERIPROSTHETIC FRACTUREOnset: 73-70-0466Atpfvdmfnxcl (1 source)LEFT FEMUR FXOnset: 72-95-1970Moigxlurfcjv (1 source)ESOPHAGITIS UNSPEC WITHOUT BLEEDING; Translations: [ESOPHAGITIS UNSPEC WITHOUT BLEEDING]Onset: 12-29-2022 Past or Other Problems Problem ClassificationProblemDateDocumented DateEpisodic/ChronicComplication of device; implant or graft (1 source)Fracture of femur following insertion of orthopedic implant, joint prosthesis, or bone plate, left leg; Translations: [FX FEMUR FOL INSRT ORTHO IMPLNT/PROSTH/BONE PLT, LEFT LEG]Onset: 22-29-5202MffxmtywLokkuodvvo and other anemia (1 source)Anemia, unspecified; Translations: [ANEMIA, UNSPECIFIED]Onset: 30-96-9959SkpcklvxUqhbt and electrolyte disorders (1 source)Hypo-osmolality and hyponatremia; Translations: [HYPO-OSMOLALITY AND HYPONATREMIA]Onset: 93-97-8161XcrphfphHopiw connective tissue disease (1 source)Pain in unspecified footOnset: 01-08-2022 Resolved: 83-06-5842Uledoggr Results Test NameValueInterpretationReference DnslpLzoalgmaR8H with Estimated Average Gluon 27-52-1221Stgxjtp [Mass/Vol]111 mg/dLNormKindred Hospital Daytone [facility] Comment on above:Result Comment: PERFORMED BY: [place] [address] PATHOLOGIST HOSPICE PHYSICIAN CHAMP COATES M.D.Performed By: #### CUU, ADDONUAPLUS, A1C WTH eA, CBC, CMP, LIPID, TSH3 #### [address] Richards StreetAlanine aminotransferase [Enzymatic activity/volume] in Serum or PlasmaOrdered By: Christina Jarvis on 92-10-8682HJC [Catalytic activity/Vol]19 U/LNormal7-52[facility] CenterComment on above: Performed By: #### CUU, ADDONUAPLUS, A1C WTH eA, CBC, CMP, LIPID, TSH3 #### [facility] [address] [place] [address] USAAlbumin [Mass/volume] in Serum or Plasma by Bromocresol green (BCG) dye binding methoOrdered By: Christina Jarvis on 43-37-1227Ysfotez BCG dye [Mass/Vol]4.2 g/dL3.5-5.7FProMedica Fostoria Community HospitalAlkaline phosphatase [Enzymatic activity/volume] in Serum or PlasmaOrdered By: Christina Jarvis on 50-83-6882HEA [Catalytic activity/Vol]78 U/ISnqcge85-124NzclufkprOhio State University Wexner Medical CenterComment on above:Performed By: #### CUU, ADDONUAPLUS, A1C WTH eA, CBC, CMP, LIPID, TSH3 #### [facility] [address] [place] [id number] USAAppearance of UrineOrdered By: Christina Jarvis on 06-10-2025 Appearance (U)ClearNormalClearOhio State University Wexner Medical CenterComment on above: Order Comment: Name Collection Type:: Clean-Voided MidstreamPerformed By: #### CUU, ADDONUAPLUS, A1C WTH eA, CBC, CMP, LIPID, TSH3 #### [facility] [address] [place] [address] USAAspartate aminotransferase [Enzymatic activity/volume] in Serum or PlasmaOrdered By: Christina Jarvis on 84-83-9468KER [Catalytic activity/Vol]21 U/QPivuvg57-48CfdjvdjpsOhio State University Wexner Medical CenterComment on above: Performed By: #### CUU, ADDONUAPLUS, A1C WTH eA, CBC, CMP, LIPID, TSH3 #### [facility] [address] [place] [address] USABacteria [Presence] in Urine by AutomatedOrdered By: Christina Jarvis on 14-37-7105Lxdozbhn Auto Ql (U)None seen [HPF]None SeenFirelands Regional Medical CenterBasophils [#/volume] in Blood by Automated countOrdered By: Christina Jarvis on 12-01-3364Vfbkrybuk (Bld) [#/Vol]0.0 10*3/uLNormal0.0-0.2 [facility] CenterComment on above:Result Comment: PERFORMED BY: [place] [address] PATHOLOGIST HOSPICE PHYSICIAN CHAMP COATES M.D.Performed By: #### CUU, ADDONUAPLUS, A1C WTH eA, CBC, CMP, LIPID, TSH3 #### [facility] [address] [place] [address] USABasophils/100 leukocytes in Blood by Automated count Ordered By: Christina Jarvis on 46-22-9055Kyxeaaefc/100 WBC (Bld)0.8 %Normal. [facility] CenterComment on above:Performed By: #### CUU, ADDONUAPLUS, A1C WTH eA, CBC, CMP, LIPID, TSH3 #### [facility] [address] [place] [address] USABilirubin Test strip Ql (U)Ordered By: Christina Jarvis on 63-17-7967Wtpzaijum Ql (U)NegativeNegativeOhio State University [facility] Center Bilirubin.total [Mass/volume] in Serum or PlasmaOrdered By: Christina Jarvis on 58-09-7481Niajvcsss [Mass/Vol]0.5 mg/dLNormal0.3-1.0[facility] CenterComment on above:Performed By: #### CUU, ADDONUAPLUS, A1C WTH eA, CBC, CMP, LIPID, TSH3 #### [facility] [address] [place] [address] USABlood estimated average glucose determination by estimation from glycated hemoglobinOrdered By: Christina Jarvis on 57-97-4143Qoluyyr glucose Estimated from glycated hemoglobin (Bld) [Mass/Vol]111 mg/dLOhio State University Wexner Medical CenterCalcium [Mass/volume] in Serum or PlasmaOrdered By: Christina Jarvis on 33-74-7872Qbkkyqo [Mass/Vol]9.9 mg/dLNormal8.6-10.3FProMedica Fostoria Community HospitalComment on above:Performed By: #### CUU, ADDONUAPLUS, A1C WTH eA, CBC, CMP, LIPID, TSH3 #### [facility] [address] [place] [address] USACarbon dioxide, total [Moles/volume] in Serum or Plasma Ordered By: Christina Jarvis on 16-92-4060FG3 [Moles/Vol]28.6 mmol/VWdkfvb87.0-31.0 [facility] CenterComment on above:Performed By: #### CUU, ADDONUAPLUS, A1C WTH eA, CBC, CMP, LIPID, TSH3 #### [facility] [address] [place] [id number] USAChloride [Moles/volume] in Serum or PlasmaOrdered By: Christina Jarvis on 63-63-8321Lrrmcasn [Moles/Vol]103 mmol/TDxllkq31-962AplsmuggfOhio State University Wexner Medical CenterComment on above:Lipemia is present at a level that could interfere with the result.Hemolysis is present at a level that could interfere with the result.Result Comment: Lipemia is present at a level that could interfere with the result. Hemolysis is present at a level that could interfere with the result.Performed By: #### CUU, ADDONUAPLUS, A1C WTH eA, CBC, CMP, LIPID, TSH3 #### [facility] [address] [place] [id number] USACholesterol [Mass/volume] in Serum or PlasmaOrdered By: Christina Jarvis on 30-50-0705Vdthznsolpm [Mass/Vol]158 mg/tQEiaojn881-649PinmsoxelOhio State University Wexner Medical CenterComment on above:Chol less than 200 mg/dl low riskChol 201-239 mg/dl borderline riskChol 240 mg/dl and greater high riskResult Comment: Chol less than 200 mg/dl low risk Chol 201-239 mg/dl borderline risk Chol 240 mg/dl and greater high riskPerformed By: #### CUU, ADDONUAPLUS, A1C WTH eA, CBC, CMP, LIPID, TSH3 #### [facility] [address] [place] [address] USACholesterol in HDL [Mass/volume] in Serum or PlasmaOrdered By: Christina Jarvis on 19-77-9767Xhzqcoqxtie in HDL [Mass/Vol]45 mg/tWNelzou99-73 [facility] CenterComment on above:HDL CHOL ATP-III CLASSIFICATION Cardiovascular RiskHDL > or equal to 60 mg/dL LOWHDL < 40 mg/dL HIGHResult Comment: HDL CHOL ATP-III CLASSIFICATION Cardiovascular Risk HDL > or equal to 60 mg/dL LOW HDL < 40 mg/dL HIGHPerformed By: #### CUU, ADDONUAPLUS, A1C WTH eA, CBC, CMP, LIPID, TSH3 #### [facility] [address] [place] [address] USACholesterol in LDL Calc [Mass/Vol]Ordered By: Christina Jarvis on 10-61-3111Itoalbovftu in LDL [Mass/Vol]80 mg/dL0-100[facility] CenterComment on above:LDL ATP III CLASSIFICATIONLDL less than 100 mg/dL OptimalLDL 100-129 mg/dL Near or above vvglboaSJN187-296 mg/dL Borderline highLDL 160-189 mg/dL HighLDL greater than 189 mg/dL Very highCholesterol in VLDL Calc [Mass/Vol]Ordered By: Christina Jarvis on 77-57-2931Trqerdymlmy in VLDL [Mass/Vol]32 mg/dLOhio State University Wexner Medical CenterColor of Urine by AutoOrdered By: Christina Jarvis on 24-65-8786Dgite (U)Light-yellowNormalYellowOhio State University Wexner Medical CenterComment on above:Order Comment: Name Collection Type:: Clean-Voided MidstreamPerformed By: #### CUU, ADDONUAPLUS, A1C WTH eA, CBC, CMP, LIPID, TSH3 #### [facility] [address] [place] [address] USAComplete Blood Count Auto Diffon 00-89-9024Wvfu Corpuscular HGB Conc33.1 g/tPZdaeks68.0-35.0[facility] Physician GroupComment on above:Performed By: #### CUU, ADDONUAPLUS, A1C WTH eA, CBC, CMP, LIPID, TSH3 #### [facility] [address] [place] [address] USANRBC%0.2 /100{WBC}Normal0-0.5The [facility] Comment on above:Performed By: #### CUU, ADDONUAPLUS, A1C WTH eA, CBC, CMP, LIPID, TSH3 #### [place] [address] USAWhite Blood Count4.3 [CFU]/mLNormal3.8-11.6The [facility] Physician GroupComment on above:Performed By: #### CUU, ADDONUAPLUS, A1C WTH eA, CBC, CMP, LIPID, TSH3 #### [place] [address] USAComprehensive Metabolic Panelon 39-76-8498Cnovxxi [Mass/Vol]4.2 g/dLNormal3.5-5.7The [facility] Physician GroupComment on above: Performed By: #### CUU, ADDONUAPLUS, A1C WTH eA, CBC, CMP, LIPID, TSH3 #### [place] [address] USAGFR/1.73 sq M.predicted MDRD (S/P/Bld) [Vol rate/Area] mL/min/{1.73_m2}NormalThe [facility] Physician [facility] CenterComment on above:Performed By: #### CUU, ADDONUAPLUS, A1C WTH eA, CBC, CMP, LIPID, TSH3 #### [place] [address] USACreatinine [Mass/volume] in Serum or PlasmaOrdered By: Christina Jarvis on 98-45-8782Rcqcyyfcml [Mass/Vol]0.82 mg/dLNormal0.60-1.20 [facility] CenterComment on above:Performed By: #### CUU, ADDONUAPLUS, A1C WTH eA, CBC, CMP, LIPID, TSH3 #### [place] [id number] USADipstick and Microscopicon 51-19-5220Ncipqklu,UrineNone SeenNormalNone SeenThe [facility] Physician GroupComment on above:Order Comment: Name Collection Type:: Clean-Voided MidstreamPerformed By: #### CUU, ADDONUAPLUS, A1C WTH eA, CBC, CMP, LIPID, TSH3 #### [place] [address] USABilirubin,UrineNegativeNormalNegativeCampbellton-Graceville Hospital Physician GroupComment on above:Order Comment: Name Collection Type:: Clean- Voided MidstreamPerformed By: #### CUU, ADDONUAPLUS, A1C WTH eA, CBC, CMP, LIPID, TSH3 #### [place] [address] USAGlucose Ql (U)NormalNormalNormalThCassia Regional Medical Center Physician GroupComment on above:Order Comment: Name Collection Type:: Clean-Voided MidstreamPerformed By: #### CUU, ADDONUAPLUS, A1C WTH eA, CBC, CMP, LIPID, TSH3 #### [place] [address] USAHyaline Casts,UrineNoneNormal0-8The [facility] Physician GroupComment on above:Order Comment: Name Collection Type:: Clean-Voided MidstreamPerformed By: #### CUU, ADDONUAPLUS, A1C WTH eA, CBC, CMP, LIPID, TSH3 #### [place] [address] USAMucus,UrineRareNormalThe [facility] Physician GroupComment on above:Order Comment: Name Collection Type:: Clean-Voided MidstreamResult Comment: PERFORMED BY: [place] [address] PATHOLOGIST HOSPICE PHYSICIAN CHAMP COATES M.D.Performed By: #### CUU, ADDONUAPLUS, A1C WTH eA, CBC, CMP, LIPID, TSH3 #### [place] [address] USANitrite,UrineNegativeNormalNegativeCampbellton-Graceville Hospital Physician GroupComment on above:Order Comment: Name Collection Type:: Clean-Voided MidstreamPerformed By: #### CUU, ADDONUAPLUS, A1C WTH eA, CBC, CMP, LIPID, TSH3 #### [place] [address] USAOccult Blood,Urine1+NormalNegativeThe [facility] Physician GroupComment on above:Order Comment: Name Collection Type:: Clean-Voided MidstreamResult Comment: PERFORMED BY: [place] [address] PATHOLOGIST HOSPICE PHYSICIAN CHAMP COATES M.D.Performed By: #### CUU, ADDONUAPLUS, A1C WTH eA, CBC, CMP, LIPID, TSH3 #### [place] [address] USAProtein,UrineNegativeNormalNegativeThe [facility] Physician GroupComment on above:Order Comment: Name Collection Type:: Clean-Voided MidstreamPerformed By: #### CUU, ADDONUAPLUS, A1C WTH eA, CBC, CMP, LIPID, TSH3 #### [place] [address] USARBC,Gmpdo2-4Xpzkjj0-3Mmy [facility] Physician GroupComment on above:Order Comment: Name Collection Type:: Clean-Voided MidstreamPerformed By: #### CUU, ADDONUAPLUS, A1C WTH eA, CBC, CMP, LIPID, TSH3 #### [place] [address] USASpecificy Emmons,Urine1.211Pylcaf0.001-1.030The [facility] Physician GroupComment on above:Order Comment: Name Collection Type:: Clean- Voided MidstreamPerformed By: #### CUU, ADDONUAPLUS, A1C WTH eA, CBC, CMP, LIPID, TSH3 #### [place] [address] USASquamous Epithelial Cell,Opzjz1-7Bjfoqx6-7Lle [facility] Physician GroupComment on above:Order Comment: Name Collection Type:: Clean- Voided MidstreamPerformed By: #### CUU, ADDONUAPLUS, A1C WTH eA, CBC, CMP, LIPID, TSH3 #### [facility] [address] [place] [address] USAUrobilinogen,UrineNormalNormalNormalThe [facility] Physician GroupComment on above:Order Comment: Name Collection Type:: Clean- Voided MidstreamPerformed By: #### CUU, ADDONUAPLUS, A1C WTH eA, CBC, CMP, LIPID, TSH3 #### [facility] [address] [place] [address] USAWBC,Rnmzy6-6Rflpos0-7Wtp [facility] Physician GroupComment on above:Order Comment: Name Collection Type:: Clean-Voided MidstreamPerformed By: #### CUU, ADDONUAPLUS, A1C WTH eA, CBC, CMP, LIPID, TSH3 #### [facility] [address] [place] [address] USAEosinophils [#/volume] in Blood by Automated countOrdered By: Christina Jarvis on 87-33-2055Pdajcxkydlt (Bld) [#/Vol]0.1 10*3/uLNormal0.0-0.45 [facility] CenterComment on above:Performed By: #### CUU, ADDONUAPLUS, A1C WTH eA, CBC, CMP, LIPID, TSH3 #### [place] [address] USAEosinophils/100 leukocytes in Blood by Automated count Ordered By: Christina Jarvis on 97-74-6199Pgbmeqweizj/100 WBC (Bld)3.1 %Normal. [facility] Medical CenterComment on above:Performed By: #### CUU, ADDONUAPLUS, A1C WTH eA, CBC, CMP, LIPID, TSH3 #### [facility] [address] [place] [address] USAEpithelial cells.squamous [#/area] in Urine sediment by Automated countOrdered By: Christina Jarvis on 26-48-9358Wlctzukefd cells.squamous Auto (Urine sed) [#/Area]1-2 [HPF]0-2FProMedica Fostoria Community Hospital Erythrocyte distribution width [Ratio] by Automated countOrdered By: Christina Jarvis on 02-11-8781Ajadcpfxxyv distribution width (RBC) [Ratio]15.1 %Normal 11.9-15.3FProMedica Fostoria Community HospitalComment on above:Performed By: #### CUU, ADDONUAPLUS, A1C WTH eA, CBC, CMP, LIPID, TSH3 #### [facility] [address] [place] [address] USAErythrocytes [#/area] in Urine sediment by Automated count Ordered By: Christina Jarvis on 94-23-2399FUL Auto (Urine sed) [#/Area]5-9 [HPF]High 0-4FProMedica Fostoria Community HospitalErythrocytes [#/volume] in Blood by Automated countOrdered By: Christina Jarvis on 08-84-0899XUU (Bld) [#/Vol]4.71 10*6/uLNormal3.60-5.00[facility] CenterComment on above: Performed By: #### CUU, ADDONUAPLUS, A1C WTH eA, CBC, CMP, LIPID, TSH3 #### [facility] [address] [place] [address] USAGlomerular filtration rate [Volume Rate/Area] in Serum, Plasma or Blood by CreatinineOrdered By: Christina Jarvis on 39-97-0210Zioxxwnvcl filtration rate [Volume Rate/Area] in Serum, Plasma or Blood by Creatinine> 60.0 mL/MinOhio State University Wexner Medical CenterGlucose [Mass/volume] in Serum or Plasma Ordered By: Christina Jarvis on 05-30-0526Tvgnuzy [Mass/Vol]105 mg/iCNrcx98-752 [facility] CenterComment on above:ADA recommended reference rangeRandom Glucose Reference [...] WTH eA, CBC, CMP, LIPID, TSH3 #### [facility] [address] [place] [id number] USAGlucose [Mass/volume] in Urine by Test stripOrdered By: Christina Jarvis on 75-60-7109Ezlwknb Test strip (U) [Mass/Vol]Normal mg/dLNormal [facility] CenterHematocrit [Volume Fraction] of Blood by Automated countOrdered By: Christina Jarvis on 52-62-2565Qxmshrjpnk (Bld) [Volume fraction]42.3 %Prtrxv78.0-46.4FProMedica Fostoria Community HospitalComment on above: Performed By: #### CUU, ADDONUAPLUS, A1C WTH eA, CBC, CMP, LIPID, TSH3 #### [facility] [address] [place] [id number] USAHemoglobin A1c/Hemoglobin.total in BloodOrdered By: Christina Jarvis on 10-85-0595RvU1s (Bld) [Mass fraction]5.5 %Normal4.3-5.6FProMedica Fostoria Community HospitalComment on above:Increased risk for diabetes: 5.7 - 6.4diabetes: >6.4glycemic control for adults with diabetes: <7.0Result Comment: Increased risk for diabetes: 5.7 - 6.4 diabetes: >6.4 glycemic control for adults with diabetes: <7.0Performed By: #### CUU, ADDONUAPLUS, A1C WTH eA, CBC, CMP, LIPID, TSH3 #### [facility] [address] [place] [id number] USAHemoglobin Test strip Ql (U)Ordered By: Christina Jarvis on 07-76-5926Opcspwjmzg Ql (U)1+HighNegativeOhio State University [facility] Center Hemoglobin [Mass/volume] in BloodOrdered By: Christina Jarvis on 06-10-2025 Hemoglobin (Bld) [Mass/Vol]14.0 g/vFZtdgjx47.8-15.4FProMedica Fostoria Community HospitalComment on above:Performed By: #### CUU, ADDONUAPLUS, A1C WTH eA, CBC, CMP, LIPID, TSH3 #### [facility] [address] [place] [address] USAHyaline casts [#/area] in Urine sediment by Automated countOrdered By: Christina Jarvis on 89-64-4333Zitrfgv casts Auto (Urine sed) [#/Area]None [LPF]0-8[facility] Medical CenterKetones [Presence] in Urine by Test stripOrdered By: Christina Jarvis on 38-66-6354Oaedrua Ql (U)Trace NormalNegMercy Health St. Elizabeth Youngstown HospitalComment on above:Order Comment: Name Collection Type:: Clean-Voided MidstreamPerformed By: #### CUU, ADDONUAPLUS, A1C WTH eA, CBC, CMP, LIPID, TSH3 #### [facility] [address] [place] [id number] USALeukocyte esterase [Presence] in Urine by Test strip Ordered By: Christina Jarvis on 20-73-3717Frqlknigq esterase Test strip Ql (U) NegativeNormalNegMercy Health St. Elizabeth Youngstown HospitalComment on above:Order Comment: Name Collection Type:: Clean-Voided MidstreamPerformed By: #### CUU, ADDONUAPLUS, A1C WTH eA, CBC, CMP, LIPID, TSH3 #### [facility] [address] [place] [id number] USALeukocytes [#/area] in Urine sediment by Automated count Ordered By: Christina Jarvis on 01-35-0765BXD Auto (Urine sed) [#/Area]1-2 [HPF]0-4 [facility] CenterLeukocytes [#/volume] corrected for nucleated erythrocytes in Blood by Automated counOrdered By: Christina Jarvis on 93-33-5522ZXL corrected for nucl RBC Auto (Bld) [#/Vol]4.3 10*3/uL3.8-11.6FProMedica Fostoria Community HospitalLeukocytes [#/volume] in Blood by Automated countOrdered By: Christina Jarvis on 89-38-9799TZO (Bld) [#/Vol]4.3 10*3/uLNormal3.8-11.6FProMedica Fostoria Community HospitalComment on above:Performed By: #### CUU, ADDONUAPLUS, A1C WTH eA, CBC, CMP, LIPID, TSH3 #### [facility] [address] [place] [address] USALipid Panelon 05-06-3963VRN Cholesterol,Mtskcvdzlc96 mg/dL Normal0-100The [facility] Physician GroupComment on above:Result Comment: LDL ATP III CLASSIFICATION LDL less than 100 mg/dL Optimal LDL 100-129 mg/dL Near or above optimal LDL 130-159 mg/dL Borderline high LDL 160-189 mg/dL High LDL greater than 189 mg/dL Very highPerformed By: #### CUU, ADDONUAPLUS, A1C WTH eA, CBC, CMP, LIPID, TSH3 #### [facility] [address] [place] [id number] USATriglyceride w/Eenite713 mg/dLHigh0-149The [facility] Physician GroupComment on above:Result Comment: TRIG ATP III CLASSIFICATION TRIG less than 150 mg/dL Normal TRIG 150-199 mg/dL Borderline high TRIG 200-500 mg/dL High TRIG greater than 500 mg/dL Very high Standard traceable to the Center for Disease Conrtrol and Prevention (CDC) test method.Performed By: #### CUU, ADDONUAPLUS, A1C WTH eA, CBC, CMP, LIPID, TSH3 #### [facility] [address] [place] [id number] USAVLDL TKKLWPMFHMR03 mg/dLNormalThe [facility] Physician [facility] CenterComment on above:Performed By: #### CUU, ADDONUAPLUS, A1C WTH eA, CBC, CMP, LIPID, TSH3 #### [facility] [address] [place] [id number] USALymphocytes [#/volume] in Blood by Automated countOrdered By: Christina Jarvis on 97-45-6900Aqtuhrqcfkt (Bld) [#/Vol]1.0 10*3/uLNormal1.00-4.8 [facility] CenterComment on above:Performed By: #### CUU, ADDONUAPLUS, A1C WTH eA, CBC, CMP, LIPID, TSH3 #### [facility] [address] [place] [id number] USALymphocytes/100 leukocytes in Blood by Automated count Ordered By: Christina Jarvis on 30-23-5211Mhvsjcaniku/100 WBC (Bld)23.0 %Normal. [facility] CenterComment on above:Performed By: #### CUU, ADDONUAPLUS, A1C WTH eA, CBC, CMP, LIPID, TSH3 #### [facility] [address] [Entitic mass] by Automated countOrdered By: Christina Jarvis on 67-74-8080TGQ (RBC) [Entitic mass]29.8 ibLnybxc01.7-34.3FProMedica Fostoria Community HospitalComment on above:Performed By: #### CUU, ADDONUAPLUS, A1C WTH eA, CBC, CMP, LIPID, TSH3 #### [facility] [address] Auto (RBC) [Mass/Vol]Ordered By: Christina Jarvis on 11-13-2810TWGR (RBC) [Mass/Vol]33.1 g/dL32.0-35.0[facility] HospitalV [Entitic volume] by Automated countOrdered By: Christina Jarvis on 33-95-7990NTC (RBC) [Entitic vol]89.9 fWZvdddw31-458WrsnfyherOhio State University Wexner Medical CenterComment on above:Performed By: #### CUU, ADDONUAPLUS, A1C WTH eA, CBC, CMP, LIPID, TSH3 #### [facility] [address] [place] [address] USAMonocytes [#/volume] in Blood by Automated countOrdered By: Christina Jarvis on 01-38-1151Jbpqcvpnn (Bld) [#/Vol]0.3 10*3/uLNormal0.0-0.8 [facility] CenterComment on above:Performed By: #### CUU, ADDONUAPLUS, A1C WTH eA, CBC, CMP, LIPID, TSH3 #### [facility] [address] [place] [address] USAMonocytes/100 leukocytes in Blood by Automated count Ordered By: Christina Jarvis on 42-06-2410Kbhwuvlsl/100 WBC (Bld)7.6 %Normal. [facility] CenterComment on above:Performed By: #### CUU, ADDONUAPLUS, A1C WTH eA, CBC, CMP, LIPID, TSH3 #### [facility] [address] [place] [id number] USAMucus [Presence] in Urine by AutomatedOrdered By: Christina Jarvis on 98-54-3519Cnxfq Auto Ql (U)Rare [LPF][facility] Neutrophils [#/volume] in Blood by Automated countOrdered By: Christina Jarvis on 64-43-9109Vmxvabwrjqu (Bld) [#/Vol]2.8 10*3/uLNormal1.8-7.7FProMedica Fostoria Community HospitalComment on above:Performed By: #### CUU, ADDONUAPLUS, A1C WTH eA, CBC, CMP, LIPID, TSH3 #### [facility] [address] [place] [id number] USANeutrophils/100 leukocytes in Blood by Automated count Ordered By: Christina Jarvis on 16-26-0233Krbzhtqjsqp/100 WBC (Bld)65.5 %Normal. [facility] CenterComment on above:Performed By: #### CUU, ADDONUAPLUS, A1C WTH eA, CBC, CMP, LIPID, TSH3 #### [facility] [address] [place] [address] USANitrite Test strip Ql (U)Ordered By: Christina Jarvis on 71-19-7326Gnuxkds Ql (U)NegativeNegativeOhio State University Wexner Medical CenterNo Panel InformationOrdered By: Christina Jarvis on 39-98-8905Awioykzh Creatinine Clearance (ChemN/AFProMedica Fostoria Community HospitalNucleated erythrocytes [Presence] in Blood by Automated countOrdered By: Christina Jarvis on 06-10-2025 Nucleated RBC Auto Ql (Bld)0.2 /100{WBC}0-0.5FProMedica Fostoria Community Hospital Platelet mean volume [Entitic volume] in Blood by Automated countOrdered By: Christina Jarvis on 97-38-9718Kylsubrv mean volume (Bld) [Entitic vol]8.1 fLNormal 6.3-10.7FProMedica Fostoria Community HospitalComment on above:Performed By: #### CUU, ADDONUAPLUS, A1C WTH eA, CBC, CMP, LIPID, TSH3 #### [facility] [address] [place] [address] USAPlatelets [#/volume] in Blood by Automated countOrdered By: Christina Javris on 48-59-2959Nvuhndiaa (Bld) [#/Vol]323 10*3/mHEoscvd568-615 [facility] CenterComment on above:Performed By: #### CUU, ADDONUAPLUS, A1C WTH eA, CBC, CMP, LIPID, TSH3 #### [facility] [address] [place] [address] USAPotassium [Moles/volume] in Serum or PlasmaOrdered By: Christina Jarvis on 27-95-0911Nyqscdgib [Moles/Vol]4.1 mmol/LNormal3.5-5.1FProMedica Fostoria Community HospitalComment on above:Lipemia is present at a [...] CMP, LIPID, TSH3 #### [facility] [address] [place] [address] USAProtein Test strip (U) [Mass/Vol]Ordered By: Christina Jarvis on 16-67-0064Qyumsci (U) [Mass/Vol]NegativeNegativeOhio State University Wexner Medical CenterProtein [Mass/volume] in Serum or PlasmaOrdered By: Christina Jarvis on 30-59-0338Axxudsy [Mass/Vol]6.8 g/dLNormal6.4-8.9[facility] CenterComment on above:Performed By: #### CUU, ADDONUAPLUS, A1C WTH eA, CBC, CMP, LIPID, TSH3 #### [facility] [address] [place] [address] USASerum globulin measurement by calculation (mass/volume) Ordered By: Christina Jarvis on 45-85-7938Ghyzjkep (S) [Mass/Vol]2.6 g/dLNormal [facility] CenterComment on above:Performed By: #### CUU, ADDONUAPLUS, A1C WTH eA, CBC, CMP, LIPID, TSH3 #### [facility] [address] [place] [address] USASerum or plasma albumin/globulin mass ratioOrdered By: Christina Jarvis on 66-28-4733Wqkdjhi/Globulin [Mass ratio]1.6 {ratio}Normal [facility] CenterComment on above:Performed By: #### CUU, ADDONUAPLUS, A1C WTH eA, CBC, CMP, LIPID, TSH3 #### [facility] [address] [place] [id number] USASerum or plasma anion gap determinationOrdered By: Christina Jarvis on 89-45-8893Orioj gap [Moles/Vol]11.5 mmol/LNormal6.0-15.0[facility] CenterComment on above:Performed By: #### CUU, ADDONUAPLUS, A1C WTH eA, CBC, CMP, LIPID, TSH3 #### [place] [address] USASerum or plasma total cholesterol/high density lipoprotein (HDL) cholesterol mass ratOrdered By: Christina Jarvis on 06-10-2025 Cholesterol.total/Cholesterol in HDL [Mass ratio]3.5 {ratio}Normal<5.0[facility] CenterComment on above:Performed By: #### CUU, ADDONUAPLUS, A1C WTH eA, CBC, CMP, LIPID, TSH3 #### [place] [id number] USASodium [Moles/volume] in Serum or PlasmaOrdered By: Christina Jarvis on 18-83-2853Tedrwo [Moles/Vol]139 mmol/XIrgwxu546-463CimsmdvheOhio State University Wexner Medical CenterComment on above:Lipemia is present at a level that could interfere with the result.Hemolysis is present at a level that could interfere with the result.Result Comment: Lipemia is present at a level that could interfere with the result. Hemolysis is present at a level that could interfere with the result.Performed By: #### CUU, ADDONUAPLUS, A1C WTH eA, CBC, CMP, LIPID, TSH3 #### [place] [id number] USASpecific gravity Test strip (U) [Rel density]Ordered By: Christina Jarvis on 99-94-7848Yebwpbts gravity (U) [Rel density]1.0141.001-1.030 [facility] Medical CenterThyrotropin [Units/volume] in Serum or Plasma Ordered By: Christina Jarvis on 11-38-1943HNZ Qn2.22 m[IU]/LNormal0.45-5.33[facility] CenterComment on above:Result Comment: PERFORMED BY: [place] [address] PATHOLOGIST HOSPICE PHYSICIAN CHAMP COATES M.D.Performed By: #### MARCUS TERAN, A1C WTH eA, CBC, CMP, LIPID, TSH3 #### [facility] [address] [place] [address] USATriglyceride [Mass/volume] in Serum or PlasmaOrdered By: Christina Jarvis on 12-13-0572Wfgqzihuxvpi [Mass/Vol]163 mg/dLHigh0-149[facility] CenterComment on above:TRIG ATP III CLASSIFICATIONTRIG less than 150 mg/dL NormalTRIG 150-199 mg/dL Borderline highTRIG 200-500 mg/dL High TRIG greater than 500 mg/dL Very highStandard traceable to the Center for Disease Conrtrol and Prevention (CDC) test method.Urea nitrogen [Mass/volume] in Serum or PlasmaOrdered By: Christina Jarvis on 82-18-0430Sayl nitrogen [Mass/Vol]15 mg/dLNormal7-25[facility] CenterComment on above:Performed By: #### BOB TERANONJARRETPLUS, A1C WTH eA, CBC, CMP, LIPID, TSH3 #### [facility] [address] [place] [address] USAUrine Cultureon 16-04-2829Hqghxflc identified Cx Nom (U) >100,000 colonies/ml mixed bacterial skin contaminants 2 Days PERFORMED BY: [place] [address] PATHOLOGIST HOSPICE PHYSICIAN CHAMP COATES M.D.NormalThe [facility] Physician GroupComment on above: Performed By: #### ANSONU, ADDONUAPLUS, A1C [facility] eA, CBC, CMP, LIPID, TSH3 #### [facility] [address] [place] [address] USAUrobilinogen Test strip (U) [Mass/Vol]Ordered By: Christina Jarvis on 26-95-4692Riscziiemtou (U) [Mass/Vol]Normal mg/dLNormalOhio State University Wexner Medical CenterpH of Urine by Test stripOrdered By: Christina Jarvis on 49-43-0557cQ (U)6.0 [pH]Normal5.0-9.0[facility] CenterComment on above:Order Comment: Name Collection Type:: Clean-Voided MidstreamPerformed By: #### CUU, ADDONUAPLUS, A1C [facility] eA, CBC, CMP, LIPID, TSH3 #### [facility] [address] [place] [id number] USAAlanine aminotransferase [Enzymatic activity/volume] in Serum or PlasmaOrdered By: Christina Jarvis on 9690WEN [Catalytic activity/Vol]25 U/L7-52[facility] CenterAlbumin [Mass/volume] in Serum or Plasma by Bromocresol green (BCG) dye binding methoOrdered By: Christina Jarvis on 99-32-1739Ejslkul BCG dye [Mass/Vol]4.1 g/dL3.5-5.7FProMedica Fostoria Community HospitalAlkaline phosphatase [Enzymatic activity/volume] in Serum or PlasmaOrdered By: Christina Jarvis on 89-38-2243EQR [Catalytic activity/Vol]84 U/L 34-104[facility] Medical CenterAspartate aminotransferase [Enzymatic activity/volume] in Serum or PlasmaOrdered By: Christina Jarvis on 12-44-5633RSK [Catalytic activity/Vol]25 U/R91-09GybjvbxfeOhio State University Wexner Medical CenterBacteria [Presence] in Urine by AutomatedOrdered By: Christina Jarvis on 74-56-9262Sbcvrqel Auto Ql (U)None seen [HPF]None SeenOhio State University Wexner Medical CenterBasophils Auto (Bld) [#/Vol]Ordered By: Christina Jarvis on 02-16-1112Kqvqkhkgk (Bld) [#/Vol] 0.0 10*3/uL0.0-0.2FProMedica Fostoria Community HospitalBasophils/100 WBC Auto (Bld) Ordered By: Christina Jarvis on 56-41-2205Crguqbjwy/100 WBC (Bld)1.0 %.[facility] Medical CenterBilirubin Test strip Ql (U)Ordered By: Christina Jarvis on 73-40-9838Srpruyimq Ql (U)NegativeNegativeOhio State University [facility] Center Bilirubin.total [Mass/volume] in Serum or PlasmaOrdered By: Christina Jarvis on 93-00-4055Ppsqdkfmk [Mass/Vol]0.5 mg/dL0.3-1.0[facility] Calcium [Mass/volume] in Serum or PlasmaOrdered By: Christina Jarvis on 05-24-2024 Calcium [Mass/Vol]9.9 mg/dL8.6-10.3FProMedica Fostoria Community HospitalCarbon dioxide, total [Moles/volume] in Serum or PlasmaOrdered By: Christina Jarvis on 31-75-8908YT6 [Moles/Vol]29.1 mmol/L21.0-31.0[facility] Chloride [Moles/volume] in Serum or PlasmaOrdered By: Christina Jarvis on 05-24-2024 Chloride [Moles/Vol]104 mmol/L59-846IrnlvaqunOhio State University Wexner Medical CenterCholesterol [Mass/volume] in Serum or PlasmaOrdered By: Christina Jarvis on 05-24-2024 Cholesterol [Mass/Vol]175 mg/sS919-792JllftzrfiOhio State University Wexner Medical CenterComment on above:Chol less than 200 mg/dl low riskChol 201-239 mg/dl borderline riskChol 240 mg/dl and greater high riskCholesterol in LDL Calc [Mass/Vol]Ordered By: Christina Jarvis on 95-68-7928Tmrnvxyxrrp in LDL [Mass/Vol]90 mg/dL0-100[facility] CenterComment on above:LDL ATP III CLASSIFICATIONLDL less than 100 mg/dL OptimalLDL 100-129 mg/dL Near or above nwztpokGBH744-414 mg/dL Borderline highLDL 160-189 mg/dL HighLDL greater than 189 mg/dL Very high Cholesterol in VLDL Calc [Mass/Vol]Ordered By: Christina Jarvis on 05-24-2024 Cholesterol in VLDL [Mass/Vol]36 mg/dLOhio State University Wexner Medical CenterColor Auto (U)Ordered By: Christina Jarvis on 59-01-6467Wjpmo (U)Light-yellowYellow [facility] CenterCreatinine [Mass/volume] in Serum or Plasma Ordered By: Christina Jarvis on 40-01-2050Eetgwtnpus [Mass/Vol]0.85 mg/dL0.60-1.20 [facility] Medical CenterEosinophils Auto (Bld) [#/Vol]Ordered By: Christina Jarvis on 82-23-8084Grbblldumiw (Bld) [#/Vol]0.2 10*3/uL0.0-0.45[facility] Medical CenterEosinophils/100 WBC Auto (Bld)Ordered By: Christina Jarvis on 35-02-5182Tqeimgiyhvw/100 WBC (Bld)3.6 %.[facility] Epithelial cells.squamous [#/area] in Urine sediment by Automated countOrdered By: Christina Jarvis on 34-25-9873Yrnkeqncgf cells.squamous Auto (Urine sed) [#/Area]1-2 [HPF]0-2FProMedica Fostoria Community HospitalErythrocyte distribution width Auto (RBC) [Ratio]Ordered By: Christina Jarvis on 55-27-8123Ymgelnfenll distribution width (RBC) [Ratio]14.7 %11.9-15.3FProMedica Fostoria Community Hospital Erythrocytes [#/area] in Urine sediment by Automated countOrdered By: Christina Jarvis on 57-10-9800YYE Auto (Urine sed) [#/Area]3-4 [HPF]0-4FProMedica Fostoria Community HospitalGlobulin Calc (S) [Mass/Vol]Ordered By: Christina Jarvis on 05-24-2024 Globulin (S) [Mass/Vol]2.3 g/dLOhio State University Wexner Medical CenterGlucose [Mass/volume] in Serum or PlasmaOrdered By: Christina Jarvis on 61-66-4622Njzcllu [Mass/Vol]97 mg/kJ00-582FqfpyqtleOhio State University Wexner Medical CenterComment on above:ADA recommended reference rangeRandom Glucose Reference Range is dependent on time and content of last meal. Glucose of more than 200 mg/dL in a nonstressed, ambulatory subject supports the diagnosisof Diabetes Mellitus.Glucose [Mass/volume] in Urine by Test stripOrdered By: Christina Jarvis on 05-24-2024 Glucose Test strip (U) [Mass/Vol]Normal mg/dLNormalOhio State University Wexner Medical CenterGlucose mean value [Mass/volume] in Blood Estimated from glycated hemoglobinOrdered By: Christina Jarvis on 63-45-9601Kirqtph glucose Estimated from glycated hemoglobin (Bld) [Mass/Vol]126 mg/dLOhio State University Wexner Medical Center Hematocrit Auto (Bld) [Volume fraction]Ordered By: Christina Jarvis on 05-24-2024 Hematocrit (Bld) [Volume fraction]41.0 %34.0-46.4FProMedica Fostoria Community HospitalHemoglobin A1c percentageOrdered By: Christina Jarvis on 36-63-3520AzU5w (Bld) [Mass fraction]6.0 %High4.3-5.6FProMedica Fostoria Community HospitalComment on above:Increased risk for diabetes: 5.7 - 6.4diabetes: >6.4glycemic control for adults with diabetes: <7.0Hemoglobin Test strip Ql (U)Ordered By: Christina Jarvis on 32-59-1618Vsunfchgcn Ql (U)1+HighNegativeOhio State University Wexner Medical CenterHemoglobin [Mass/volume] in BloodOrdered By: Christina Jarvis on 05-24-2024 Hemoglobin (Bld) [Mass/Vol]13.6 g/dL11.8-15.4FProMedica Fostoria Community Hospital Hyaline casts [#/area] in Urine sediment by Automated countOrdered By: Christina Jarvis on 19-31-2286Idyorbh casts Auto (Urine sed) [#/Area]None [LPF]0-8 [facility] Medical CenterKetones Test strip Ql (U)Ordered By: Christina Jarvis on 47-11-6498Bubktze Ql (U)NegativeNegativeOhio State University Wexner Medical CenterLeukocyte esterase [Presence] in Urine by Test stripOrdered By: Christina Jarvis on 23-80-5203Mszkpqfip esterase Test strip Ql (U)NegativeNegative [facility] CenterLeukocytes [#/area] in Urine sediment by Automated countOrdered By: Christina Jarvis on 38-32-7057LHE Auto (Urine sed) [#/Area]1-2 [HPF]0-4FProMedica Fostoria Community HospitalLeukocytes [#/volume] corrected for nucleated erythrocytes in Blood by Automated counOrdered By: Christina Jarvis on 90-68-1367PCX corrected for nucl RBC Auto (Bld) [#/Vol]4.3 10*3/uL 3.8-11.6FProMedica Fostoria Community HospitalLymphocytes Auto (Bld) [#/Vol]Ordered By: Christina Jarvis on 30-47-6235Umqruugezjs (Bld) [#/Vol]1.2 10*3/uL1.00-4.8 [facility] CenterLymphocytes/100 WBC Auto (Bld)Ordered By: Christina Jarvis on 05-54-6840Iavupkwqbvq/100 WBC (Bld)27.5 %.[facility] HospitalH Auto (RBC) [Entitic mass]Ordered By: Christina Jarvis on 05-49-0990FAA (RBC) [Entitic mass]29.4 pg24.7-34.3FProMedica Fostoria Community HospitalMCHC Auto (RBC) [Mass/Vol]Ordered By: Christina Jarvis on 41-60-9295QXJD (RBC) [Mass/Vol]33.2 g/dL32.0-35.0[facility] CenterMCV Auto (RBC) [Entitic vol] Ordered By: Christina Jarvis on 51-36-2943JSS (RBC) [Entitic vol]88.5 zM93-251 [facility] CenterMonocytes Auto (Bld) [#/Vol]Ordered By: Christina Jarvis on 19-36-4664Mcqmhotdz (Bld) [#/Vol]0.4 10*3/uL0.0-0.8[facility] CenterMonocytes/100 WBC Auto (Bld)Ordered By: Christina Jarvis on 05-24-2024 Monocytes/100 WBC (Bld)8.6 %.[facility] CenterMucus [Presence] in Urine by AutomatedOrdered By: Christina Jarvis on 37-59-1478Ifrzu Auto Ql (U)Rare [LPF][facility] CenterNeutrophils Auto (Bld) [#/Vol]Ordered By: Christina Jarvis on 20-31-9831Onmpqmzuhar (Bld) [#/Vol]2.5 10*3/uL1.8-7.7FProMedica Fostoria Community HospitalNeutrophils/100 WBC Auto (Bld)Ordered By: Christina Jarvis on 39-80-6328Hfborkhwpky/100 WBC (Bld)59.3 %.[facility] Nitrite Test strip Ql (U)Ordered By: Christina Jarvis on 12-89-0806Gwxhauc Ql (U) NegativeNegativeOhio State University Wexner Medical CenterNo Panel InformationOrdered By: Christina Jarvis on 87-05-6290Xuwdttxbu GFR (CKD-EPI)> 60.0 mL/MinOhio State University Wexner Medical CenterPharmacy Creatinine Clearance (ChemN/AFProMedica Fostoria Community HospitalNucleated erythrocytes [Presence] in Blood by Automated count Ordered By: Christina Jarvis on 32-25-0397Bktjzdmbn RBC Auto Ql (Bld)0.1 /100{WBC} 0-0.5FProMedica Fostoria Community HospitalPlatelet mean volume Auto (Bld) [Entitic vol]Ordered By: Christina Jarvis on 88-28-6745Psubdpid mean volume (Bld) [Entitic vol]7.9 fL6.3-10.7FProMedica Fostoria Community HospitalPlatelets Auto (Bld) [#/Vol] Ordered By: Christina Jarvis on 96-55-5811Npminlkrz (Bld) [#/Vol]325 10*3/hK844-113 [facility] CenterPotassium [Moles/volume] in Serum or Plasma Ordered By: Christina Jarvis on 26-69-3325Nxbqszjtq [Moles/Vol]4.2 mmol/L3.5-5.1 [facility] CenterProtein Test strip (U) [Mass/Vol]Ordered By: Christina Jarvis on 37-82-8741Lfuyich (U) [Mass/Vol]NegativeNegativeOhio State University Wexner Medical CenterProtein [Mass/volume] in Serum or PlasmaOrdered By: Christina Jarvis on 91-18-7874Wpzdntx [Mass/Vol]6.4 g/dL6.4-8.9[facility] CenterRBC Auto (Bld) [#/Vol]Ordered By: Christina Jarvis on 49-68-9087ZCA (Bld) [#/Vol]4.63 10*6/uL3.60-5.00[facility] Centererum or plasma albumin/globulin mass ratioOrdered By: Christina Jarvis on 05-24-2024 Albumin/Globulin [Mass ratio]1.8 {ratio}[facility] Medical Centererum or plasma anion gap determinationOrdered By: Christina Jarvis on 12-52-4820Brmsj gap [Moles/Vol]10.1 mmol/L6.0-15.0[facility] Medical Centererum or plasma high density lipoprotein (HDL) cholesterol measurementOrdered By: Christina Jarvis on 27-15-5204Cgvxchjvvuu in HDL [Mass/Vol]49 mg/yW51-86CmitgtdvnOhio State University Wexner Medical CenterComment on above:HDL CHOL ATP-III CLASSIFICATION Cardiovascular RiskHDL > or equal to 60 mg/dL LOWHDL < 40 mg/dL HIGHSerum or plasma total cholesterol/high density lipoprotein (HDL) cholesterol mass ratOrdered By: Christina Jarvis on 34-92-7720Tdhxnnpyuzz.total/Cholesterol in HDL [Mass ratio]3.6 {ratio}<5.0[facility] Medical Centerodium [Moles/volume] in Serum or PlasmaOrdered By: Christina Jarvis on 09-70-5581Grwlof [Moles/Vol]139 mmol/Z280-290 [facility] Medical Centerpecific gravity Test strip (U) [Rel density] Ordered By: Christina Jarvis on 66-52-2292Qkemefru gravity (U) [Rel density]1.016 1.001-1.030[facility] CenterThyrotropin [Units/volume] in Serum or PlasmaOrdered By: Christina Jarvis on 62-39-6789ARS Qn2.10 m[IU]/L0.45-5.33 [facility] CenterTriglyceride [Mass/volume] in Serum or Plasma Ordered By: Christina Jarvis on 80-65-5308Retqvsedbgsz [Mass/Vol]182 mg/dLHigh0-149 [facility] CenterComment on above:TRIG ATP III CLASSIFICATIONTRIG less than 150 mg/dL NormalTRIG 150-199 mg/dL Borderline highTRIG 200-500 mg/dL High TRIG greater than 500 mg/dL Very highStandard traceable to the Center for Disease Conrtrol and Prevention (CDC) test method. Urea nitrogen [Mass/volume] in Serum or PlasmaOrdered By: Christina Jarvis on 33-52-5920Mytf nitrogen [Mass/Vol]12 mg/dL7-25[facility] Urine appearanceOrdered By: Christina Jarvis on 36-13-9276Nrxtavaupp (U)ClearClear [facility] CenterUrine culture routineOrdered By: Christina Jarvis on 63-57-5984Tajlqlky identified Cx Nom (U)2 DaysOhio State University Wexner Medical CenterUrobilinogen Test strip (U) [Mass/Vol]Ordered By: Christina Jarvis on 10-01-8912Nnwieljuozac (U) [Mass/Vol]Normal mg/dLNormalOhio State University Wexner Medical CenterWBC Auto (Bld) [#/Vol]Ordered By: Christina Jarvis on 79-22-0323NOR (Bld) [#/Vol]4.3 10*3/uL3.8-11.6FProMedica Fostoria Community HospitalpH Test strip (U)Ordered By: Christina Jarvis on 63-27-7574mJ (U)6.5 [pH]5.0-9.0[facility] CenterAlanine aminotransferase [Enzymatic activity/volume] in Serum or PlasmaOrdered By: Christina Jarvis on 25-75-7658DYU [Catalytic activity/Vol]20 U/L 7-52[facility] CenterAlbumin [Mass/volume] in Serum or Plasma by Bromocresol green (BCG) dye binding methoOrdered By: Christina Jarvis on 02-04-2023 Albumin BCG dye [Mass/Vol]3.9 g/dL3.5-5.7FProMedica Fostoria Community Hospital Alkaline phosphatase [Enzymatic activity/volume] in Serum or PlasmaOrdered By: Christina Jarvis on 16-86-3193SXS [Catalytic activity/Vol]84 U/H01-145NqwbubmprOhio State University Wexner Medical CenterAspartate aminotransferase [Enzymatic activity/volume] in Serum or PlasmaOrdered By: Christina Jarvis on 72-86-3461HIB [Catalytic activity/Vol]20 U/B39-02CaapxwwzgOhio State University Wexner Medical CenterAutomated erythrocytes count in urine sediment (number/area)Ordered By: Christina Jarvis on 47-33-5379HCM Auto (Urine sed) [#/Area]3-4 [HPF]0-4FProMedica Fostoria Community HospitalAutomated leukocytes count in urine sediment (number/area)Ordered By: Christina Jarvis on 77-22-6718GCC Auto (Urine sed) [#/Area]None seen [HPF]0-4FProMedica Fostoria Community HospitalBasophils Auto (Bld) [#/Vol]Ordered By: Christina Jarvis on 02-04-2023 Basophils (Bld) [#/Vol]0.0 10*3/uL0.0-0.2FProMedica Fostoria Community Hospital Basophils/100 WBC Auto (Bld)Ordered By: Christina Jarvis on 76-06-9378Mfaypscbx/100 WBC (Bld)1.1 %.[facility] CenterBilirubin Test strip Ql (U) Ordered By: Christina Jarvis on 73-83-2646Ywpuqigir Ql (U)NegativeNegativeOhio State University [facility]ner Medical CenterBilirubin.total [Mass/volume] in Serum or PlasmaOrdered By: Christina Jarvis on 70-04-9088Mxcmnnoir [Mass/Vol]0.5 mg/dL0.3-1.0[facility] CenterCalcium [Mass/volume] in Serum or PlasmaOrdered By: Christina Jarvis on 49-28-9615Uqkraku [Mass/Vol]9.4 mg/dL8.6-10.3FProMedica Fostoria Community HospitalCarbon dioxide, total [Moles/volume] in Serum or PlasmaOrdered By: Christina Jarvis on 02-24-3783AH5 [Moles/Vol]30.3 mmol/L21.0-31.0[facility] CenterChloride [Moles/volume] in Serum or PlasmaOrdered By: Christina Jarvis on 32-31-5930Makorqdo [Moles/Vol]104 mmol/L66-249WocikgvqtOhio State University Wexner Medical CenterCholesterol [Mass/volume] in Serum or PlasmaOrdered By: Christina Jarvis on 59-04-1557Majwnwdvqyg [Mass/Vol]173 mg/gG201-942NhsylyrlaOhio State University Wexner Medical CenterComment on above:Chol less than 200 mg/dl low riskChol 201-239 mg/dl borderline riskChol 240 mg/dl and greater high riskCholesterol in LDL Calc [Mass/Vol]Ordered By: Christina Jarvis on 45-06-1446Odoodhqzyzv in LDL [Mass/Vol]89 mg/dL0-100[facility] CenterComment on above:LDL ATP III CLASSIFICATIONLDL less than 100 mg/dL OptimalLDL 100-129 mg/dL Near or above swrihgbLDW695-783 mg/dL Borderline highLDL 160-189 mg/dL HighLDL greater than 189 mg/dL Very highCholesterol in VLDL Calc [Mass/Vol]Ordered By: Christina Jarvis on 12-84-2500Sgkvxbakvxz in VLDL [Mass/Vol]37 mg/dLOhio State University Wexner Medical CenterColor Auto (U)Ordered By: Christina Jarvis on 39-08-3037Hiyqz (U)YellowYellow [facility] CenterCreatinine [Mass/volume] in Serum or Plasma Ordered By: Christina Jarvis on 74-48-7771Qorbjjcvku [Mass/Vol]0.84 mg/dL0.60-1.20 [facility] CenterEosinophils Auto (Bld) [#/Vol]Ordered By: Christina Jarvis on 05-40-8966Vkbztxhwtjl (Bld) [#/Vol]0.2 10*3/uL0.0-0.45[facility] CenterEosinophils/100 WBC Auto (Bld)Ordered By: Christina Jarvis on 58-70-8366Qobqtuehovg/100 WBC (Bld)5.4 %.[facility] Erythrocyte distribution width Auto (RBC) [Ratio]Ordered By: Christina Jarvis on 09-96-3132Jpckcuqqokc distribution width (RBC) [Ratio]14.9 %11.9-15.3FProMedica Fostoria Community HospitalGlobulin Calc (S) [Mass/Vol]Ordered By: Christina Jarvis on 24-64-8285Rmunnytm (S) [Mass/Vol]2.6 g/dLOhio State University [facility]ner [facility] Center Glucose [Mass/volume] in Serum or PlasmaOrdered By: Christina Jarvis on 02-04-2023 Glucose [Mass/Vol]102 mg/tY78-068XwruhkgwmOhio State University Wexner Medical CenterComment on above:ADA recommended reference rangeRandom Glucose Reference Range is dependent on time and content of last meal. Glucose of more than 200 mg/dL in a nonstressed, ambulatory subject supports the diagnosisof Diabetes Mellitus. Hematocrit Auto (Bld) [Volume fraction]Ordered By: Christina Jarvis on 02-04-2023 Hematocrit (Bld) [Volume fraction]39.8 %34.0-46.4FProMedica Fostoria Community HospitalHemoglobin [Mass/volume] in BloodOrdered By: Christina Jarvis on 02-04-2023 Hemoglobin (Bld) [Mass/Vol]13.1 g/dL11.8-15.4FProMedica Fostoria Community Hospital Ketones Auto test strip (U) [Mass/Vol]Ordered By: Christina Jarvis on 02-04-2023 Ketones (U) [Mass/Vol]NegativeNegativeOhio State University [facility] Laboratory - UrinalysisOrdered By: Christina Jarvis on 42-96-1690Espeetw casts LM Ql (Urine sed)None seen [LPF]0-8[facility] CenterLeukocytes [#/volume] corrected for nucleated erythrocytes in Blood by Automated coun Ordered By: Christina Jarvis on 88-94-7522LNP corrected for nucl RBC Auto (Bld) [#/Vol]4.1 10*3/uL3.8-11.6FProMedica Fostoria Community HospitalLymphocytes Auto (Bld) [#/Vol]Ordered By: Christina Jarvis on 40-50-5620Acbduivnwxe (Bld) [#/Vol]1.0 10*3/uL1.00-4.8[facility] CenterLymphocytes/100 WBC Auto (Bld) Ordered By: Christina Jarvis on 34-23-8594Jekmimmkrds/100 WBC (Bld)25.3 %.[facility]H Auto (RBC) [Entitic mass]Ordered By: Christina Jarvis on 47-63-2470GTJ (RBC) [Entitic mass]29.3 pg24.7-34.3FProMedica Fostoria Community HospitalMCHC Auto (RBC) [Mass/Vol]Ordered By: Christina Jarvis on 65-05-8975LEZH (RBC) [Mass/Vol]32.9 g/dL32.0-35.0[facility] CenterMCV Auto (RBC) [Entitic vol]Ordered By: Christina Jarvis on 68-11-3694GAY (RBC) [Entitic vol]89.2 fL95-393TywnwgyzxOhio State University Wexner Medical CenterMonocytes Auto (Bld) [#/Vol]Ordered By: Christina Jarvis on 59-70-0269Fhfeqeopv (Bld) [#/Vol]0.4 10*3/uL0.0-0.8[facility] CenterMonocytes/100 WBC Auto (Bld)Ordered By: Christina Jarvis on 94-48-0539Jzlnnzumf/100 WBC (Bld)9.8 %.[facility] Neutrophils Auto (Bld) [#/Vol]Ordered By: Christina Jarvis on 97-38-7171Vacvwqfaodo (Bld) [#/Vol]2.4 10*3/uL1.8-7.7FProMedica Fostoria Community HospitalNeutrophils/100 WBC Auto (Bld)Ordered By: Christina Jarvis on 11-76-1179Sfqplgrmwar/100 WBC (Bld) 58.4 %.[facility] CenterNitrite Test strip Ql (U)Ordered By: Christina Jarvis on 56-65-9452Rekvvzd Ql (U)NegativeNegativeOhio State University Wexner Medical CenterNo Panel InformationOrdered By: Christina Jarvis on 02-04-2023 Estimated GFR (CKD-EPI)> 60.0 mL/MinOhio State University Wexner Medical CenterPharmacy Creatinine Clearance (ChemN/AFProMedica Fostoria Community HospitalNucleated erythrocytes [Presence] in Blood by Automated countOrdered By: Christina Jarvis on 90-48-3674Jhdxqqsig RBC Auto Ql (Bld)0.1 /100{WBC}0-0.5FProMedica Fostoria Community HospitalPlatelet mean volume Auto (Bld) [Entitic vol]Ordered By: Christina Jarvis on 52-91-2445Lqorxvja mean volume (Bld) [Entitic vol]7.8 fL6.3-10.7 [facility] CenterPlatelets Auto (Bld) [#/Vol]Ordered By: Christina Jarvis on 42-96-8691Wbanyndnm (Bld) [#/Vol]308 10*3/pH732-877LixgeeynmOhio State University Wexner Medical CenterPotassium [Moles/volume] in Serum or PlasmaOrdered By: Christina Jarvis on 93-36-9055Pdyiryqei [Moles/Vol]4.4 mmol/L3.5-5.1FProMedica Fostoria Community HospitalProtein Auto test strip (U) [Mass/Vol]Ordered By: Christina Jarvis on 39-12-6301Vqfsycs (U) [Mass/Vol]NegativeNegativeOhio State University Wexner Medical CenterProtein [Mass/volume] in Serum or PlasmaOrdered By: Christina Jarvis on 89-87-0209Mwvnwzp [Mass/Vol]6.5 g/dL6.4-8.9[facility] CenterRBC Auto (Bld) [#/Vol]Ordered By: Christina Jarvis on 14-01-6512UKN (Bld) [#/Vol]4.46 10*6/uL3.60-5.00[facility] Centererum or plasma albumin/globulin mass ratioOrdered By: Christina Jarvis on 02-04-2023 Albumin/Globulin [Mass ratio]1.5 {ratio}[facility] Centererum or plasma anion gap determinationOrdered By: Christina Jarvis on 81-03-4611Fjknk gap [Moles/Vol]10.1 mmol/L6.0-15.0[facility] Centererum or plasma high density lipoprotein (HDL) cholesterol measurementOrdered By: Christina Jarvis on 27-97-1922Zbzhgpqbpyz in HDL [Mass/Vol]47 mg/lT91-48KvadstvzlOhio State University Wexner Medical CenterComment on above:HDL CHOL ATP-III CLASSIFICATION Cardiovascular RiskHDL > or equal to 60 mg/dL LOWHDL < 40 mg/dL HIGHSerum or plasma total cholesterol/high density lipoprotein (HDL) cholesterol mass ratOrdered By: Christina Jarvis on 54-66-0299Ypnsjecudmj.total/Cholesterol in HDL [Mass ratio]3.7 {ratio}<5.0[facility] Centerodium [Moles/volume] in Serum or PlasmaOrdered By: Christina Jarvis on 04-32-5066Ghrgwe [Moles/Vol]140 mmol/M930-842 [facility] Centerpecific gravity Auto test strip (U) [Rel density]Ordered By: Christina Jarvis on 93-95-0749Bdekrtaf gravity (U) [Rel density] 1.0101.001-1.030[facility] Centerquamous epithelial cells detection in urine sediment by light microscopyOrdered By: Christina Jarvis on 09-14-5572Vzukhbdrwe cells.squamous LM Ql (Urine sed)0-1 [HPF]0-2FProMedica Fostoria Community HospitalThyrotropin [Units/volume] in Serum or PlasmaOrdered By: Christina Jarvis on 96-53-5122RXP Qn2.01 m[IU]/L0.45-5.33[facility] CenterTriglyceride [Mass/volume] in Serum or PlasmaOrdered By: Christina Jarvis on 42-70-6583Hertqxmsuktr [Mass/Vol]186 mg/dL0-149[facility] Comment on above:TRIG ATP III CLASSIFICATIONTRIG less than 150 mg/dL NormalTRIG 150-199 mg/dL Borderline highTRIG 200-500 mg/dL High TRIG greater than 500 mg/dL Very highStandard traceable to the Center for Disease Conrtrol and Prevention (CDC) test method.Urea nitrogen [Mass/volume] in Serum or PlasmaOrdered By: Christina Jarvis on 78-17-7331Zruv nitrogen [Mass/Vol]15 mg/dL7-25[facility] CenterUrine bacteria detection by automated methodOrdered By: Christina Jarvis on 87-94-0160Qmeaxirk Auto Ql (U)None seenNone SeenOhio State University Wexner Medical CenterUrine clarity by refractometry automatedOrdered By: Christina Jarvis on 24-06-5267Mgpummj Refractometry automated (U)ClearCleKing's Daughters Medical Center OhioUrine glucose measurement by automated test strip (mass/volume) Ordered By: Christina Jarvis on 85-43-2527Jydvgkz Auto test strip (U) [Mass/Vol] Normal mg/dLNormalOhio State University Wexner Medical CenterUrine hemoglobin detection by automated test stripOrdered By: Christina Jarvis on 79-60-8374Uvlpwmwvnn Auto test strip Ql (U)TraceNegativeOhio State University Wexner Medical CenterUrine leukocyte esterase detection by automated test stripOrdered By: Christina Jarvis on 02-04-2023 Leukocyte esterase Auto test strip Ql (U)NegativeNegativeOhio State University Wexner Medical CenterUrobilinogen Auto test strip (U) [Mass/Vol]Ordered By: Christina Jarvis on 12-96-3500Qvakbclpuuqc (U) [Mass/Vol]Normal mg/dLNormalOhio State University Wexner Medical CenterWBC Auto (Bld) [#/Vol]Ordered By: Christina Jarvis on 87-89-4684HKI (Bld) [#/Vol]4.1 10*3/uL3.8-11.6FProMedica Fostoria Community Hospital pH Auto test strip (U)Ordered By: Christina Jarvis on 59-49-0220dE (U)7.0 [pH] 5.0-9.0[facility] CenterH PYLORI TISSUEon 12-22-2022H PYL TISSUE, UREASENegativeNormalNEGATIVEThe [facility] Community HospitalComment on above: Performed By: #### HPYLT #### [facility] [address] [address] [address] Raffy HoytAmbulatory Clinical Summaryon 99-50-1980Wntcilybpz Clinical Summary{3j-6o-52-70-59-bd-50-46-3j-69-10-2p-64-70-ae-31}CD:[id number] Medical Specialty Hospital - Boardman, IncAmbulatory Clinical Summary {3r-f4-4r-92-e2-b9-94-91-3w-8l-81-9k-a0-c0-db-9b}CD:330501IhtkgzBwxyosProtestant Deaconess HospitalPatient Educationon 71-74-5524Uodqpwx EducationUrology Hematuria, Adult Hematuria is blood in [...] these instructions at home: Medicines ? Take telx-cju-hnouusv and prescription medicines only as told by [...] the blood stops without treatment. ? Take asra-ugc-vwrnzju and prescription medicines only as told by your health care provider. ? Drink enough fluid to keep your urine clear or pale yellow. This information is not intended to replace advice given to you by your health care provider. Make sure you discuss any questions you have with your health care provider. Document Released: 10/10/2006 Document Revised: 03/05/2020 Document Reviewed: 11/12/2017 ElseAccel[employer] Patient Education ? 2019 NewsiT.[facility] Urology Office/Clinic Noteon 25-89-2549Kzcwmtu Office/Clinic NoteChief Complaint 3 week f/u to cysto This patient is here to complete his hematuria work-up. She had recent cystoscopic examination. Sheis here to review labs. [facility] Staff Pt is here for a 3 [...] Moisés Nye, URO [address] [place] [id number]- Additional Instructions: prn Patient Education Hematuria, Adult [...] evidence of tumors obstructions or mucosal lesions. [facility] HospitalComment on above:Result Comment: Electronically Signed By: Dave Krueger MD, Moisés Nye\.br\Date and Time Signed: 03/12/2109:24 EDT\.br\Electronically Co-Signed By: Elizabet Elliott MA\.br\Date and Time Co- Signed: 03/12/21 09:07 EDTLab Reportson 59-37-0124Vbh Reports [id number]#1.00CD:127NoSelect Medical Specialty Hospital - Boardman, IncRAD - CT Reporton 40-45-6216DKB - CT Report [id number]#1.00CD:127NoSelect Medical Specialty Hospital - Boardman, IncUroVysion Fish and Urine Cyto (P4 Labs)on 01-02-4060ENEMFH & UCDiagnosis InfoInvalid Interpretation [facility] CenterComment on above: Result Comment: [...] by : on: 02/19/2021 10:26:09Performed By: #### [id number] ####[facility] Fndxejdiai173 [facility], [id number] Summary.on 67-39-1611Gvrnma Summary. CD:[id number]:[id number]+PGhlYWQ+LJ7QLWSqB79cqADxkU2IK1gWBY8TQJPYFOKBRG3ERA6ng VN2NVzxE5GhzvJt [file] c2U6 (more content not included)...NormalNewark HospitalConsent for Procedure/Surgeryon 41-35-3890Icuoiji for Procedure/Surgery [id number]#1.00CD:127[facility] HospitalConsent for Treatmenton 43-27-7312Fqnzhim for Treatment [id number]#1.00CD:[address] [place], [place] [address]Discharge Instructionson 81-14-8478Tevlpqgit Instructions [id number]#1.00CD:[address] [place], [place] [address]IntraOperative Documentson 01-37-9847GxuyoJzttmnibb Documents [id number]:127NormalFisher [facility] Of Maryland Medical CenterMain OR Intraoperative Recordon 23-56-8931Pstx OR Intraoperative Record IntraOp Document Type FTURO Summary Primary Physician: Moisés Acosta Jr., MD Finalized Date/Time: 02/12/21 14:26:27 Pt. Name: KAYLEIGH BROWN /Sex: 1950 Female Med Rec #: [id number] Physician: Moisés Acosta Jr., MD Financial #: [id number] Pt. Type: O Room/Bed: / Admit/Disch: 02/12/21 13:00:12 - Institution: Case Times FTURO Entry 1 Patient Times In Room 02/12/21 14:17:00 Out Room 02/12/21 14:26:00 Procedure Times Start 02/12/21 14:23:00 Stop 02/12/21 14:24:00 Anesthesia Times Last Modified By: Bhavani Roldan RN 02/12/21 14:26:22 Case Attendance FTURO Entry 1 Entry 2 Entry 3 Case Attendee Moisés Acosta Jr., MD [place] [employer], Bhavani Walters RN Role Performed Surgeon - Primary Scrub - Primary Counter Sales Person - Primary Time In 02/12/21 14:17:00 02/12/21 [...] Krueger MD, Moisés Nye, Verified (If Participants [place] MARSHALL, Guerita Pham, Applicable) Bhavani Roldan RN [...] Signatures Signed By: Bhavani Roldan RN 02/12/21 14:26[facility] HospitalMain OR Preoperative Recordon 74-82-1288Icqk OR Preoperative RecordHolding Area Document Type FTURO Summary Primary Physician: Moisés Acosta Jr., MD Finalized Date/Time: 02/12/21 13:28:02 Pt. Name: STEPHANIE KAYLEIGHVero Bingham D.O.B./Sex: 1950 Female Med Rec #: [id number] Physician: Moisés Acosta Jr., MD Financial #: [id number] Pt. Type: O Room/Bed: / Admit/Disch: 02/12/21 [...] Levine 02/12/21 13:28NoSelect Medical Specialty Hospital - Boardman, IncOperative Reporton 89-72-7862Iuuymuzfs ReportPatient: KAYLEIGH BROWN Age: 70 years Sex: [...] CT scan and urine studies at that time..[facility] Comment on above:Result Comment: Electronically Signed By: Dave Krueger MD, Moisés Nye\.br\Date and Time Signed: 02/12/2114:27 EDTUroVysion Fish and Urine Cyto (P4 Labs)on 95-51-8936WCEC Method of ExtractionVoidedNoSelect Medical Specialty Hospital - Boardman, IncComment on above:Performed By: #### [id number] ####[facility] [address] [place], [id number] Number of Heka3Ujjkbjd Interpretation [facility] CenterComment on above:Performed By: #### [id number] ####[facility] [facility], DP36460SBPP SpecimenUrineNoSelect Medical Specialty Hospital - Boardman, IncComment on above:Performed By: #### [id number] ####Mike [facility], [id number] Type of ServiceTechnical Only [facility] HospitalComment on above:Performed By: #### [id number] ####[address] [address] [facility], [place]Kdhhj on [id number]#1.00CD:127Normal [facility] 44-90-7374Shxqxefuq From: Margaret Downs MA To: EU - [...] fill out and fax back- will call [facility] and get a new specimen 02/12/[facility]. Cx form was faxed- [facility] From: Marisol Swain To: EU - Clinical; Sent: 01/27/2021 11:43:45 EDT Show up: 02/10/2021 11:43:00 EDT Subject: CT Reminder/Recall being done at [facility] prior to 02/12/21 done, CT is in patients chart. will go over at time of Cysto 02/12/21.NormalNewark Hospital UroVysion Fish and Urine Cyto (P4 Labs)on 95-91-1468VUFXZO & UCDiagnosis Info Invalid Interpretation [facility] CenterComment on above:Result Comment: Gross Description Electronically signed by : on: 02/11/2021 12:26:14Performed By: #### [id number] ####[facility] [address] [place], [id number]-Kjhydbxmkrkyv Formon 31-00-8323Qwr-Certification Form [id number]:127NoSelect Medical Specialty Hospital - Boardman, IncAmbulatory Clinical Summaryon 59-59-2728Rkdcbxnbfd Clinical Summary {5d-j2-78-1j-57-8q-66-6d-p3-95-g1-g7-0d-05-d1-00}CD:[id number] Medical Specialty Hospital - Boardman, IncPatient Educationon 03-58-6877Vlecbod EducationUrology Hematuria, Adult Hematuria is blood in [...] these instructions at home: Medicines ? Take ztca-wgj-xmnqscg and prescription medicines only as told by [...] the blood stops without treatment. ? Take ovps-fce-uoyfdrx and prescription medicines only as told by [...] Reviewed: 11/12/2017 Elsevier Patient Education ? 2019 NewsiT.[facility] Pre-Authorization for Medical Treatmenton 76-84-8801Mkm-Authorization for Medical [id number]#1.00CD:127[facility]acon[facility] HospitalUroVysion Fish and Urine Cyto (P4 Labs)on 66-59-4486TVGA Method of ExtractionVoidedProtestant Deaconess HospitalComment on above: Performed By: #### [id number] ####[facility] [address] [place], [place] [id number] Number of Cxrt5Dowxxls Interpretation Code [facility] HospitalComment on above:Performed By: #### [id number] ####[facility] [address] [place], [place]UVUC SpecimenUrineProtestant Deaconess HospitalComment on above:Performed By: #### [id number] ####[facility] Oagudrwhjj295 [facility], [id number] Type of ServiceTechnical OnlyProtestant Deaconess HospitalComment on above:Performed By: #### [id number] ####[facility] Usudhiyios262 [facility] [id number] Office/Clinic Noteon 40-26-2568Kgpduef Office/Clinic NoteChief Complaint gross hematuria HPI Staff [...] Will order Local anesthesia. ABX sent to [facility] in [place]. Ordered: CT Abdomen/Pelvis w/ Contrast Urnls Dip Stick Auto w/o Microscopy POC 31033 Urology Procedure Order 2. Other urethral stricture, female (N35.82: Other urethral stricture, female) S/p Cysto/UD 09/21/2018. Ordered: Urology Procedure Order Orders: ciprofloxacin, 500 mg = 1 tab(s), Oral, Daily, Take 1 day prio to Cysto and 1 after Cysto completed, X 2 day(s), # 2 tab(s), Refills(s) 0, Pharmacy: [facility]/pharmacy #[id number], 175, cm, 01/27/21 10:28:00 EDT, Height/Length Dosing, 90, kg, 01/27/21 10:28:00 EDT, Weight Dosing I have reviewed the previous health record information and history for this pt. from Dr. Acosta. Follow-up With When Contact Information Dave Krueger MD, Moisés [address] Additional Instructions: Patient Education Hematuria, Adult [...] Social History Alcohol - (more content not included)...[facility]aconess HospitalComment on above:Result Comment: Electronically Signed By: Dave Krueger MD, Moisés Nye\.br\Date and Time Signed: 01/27/2111:15 EDT\.br\Electronically Co-Signed By: Elizabet Elliott MA\.br\Date and Time Co-Signed: 01/27/21 11:06 EDTHIP LEFT 1 OR 2 VWS WITH PELVISon 63-44-3368XCK LEFT 1 OR 2 VWS WITH PELVISUnOhioHealth [facility]heastern [facility] Department of Radiology [address] [place] [address] Patient Name: KAYLEIGH BROWN : 1950 Sex: F Age: Race: White Pt. Location: Patient Status: Ordered Date: 01/02/2019 1:50:00 PM Completed Date: 01/02/2019 01:59 PM Requesting Provider: JAZMIN AVILA Attending Provider: Report Copy To: Signs & Symptoms: S72.92XD Unsp fracture of left femur, subs for clos fx w routn heal I10 History: [place] Comments: , , , Ordering Provider - [...] spine Electronically signed by:Mila Hernandez. 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 Transcribed by: [id number], User Resident: Electronically Signed by: CHUCKIE HARRIS @ 11/27/2018 10:59 [facility] HospitalComment on above:Order Comment: , , , Ordering Provider - JAZMIN AVILA PA-C , HIP LEFT 1 OR 2 VWS WITH PELVISon 79-17-0164VKE LEFT 1 OR 2 VWS WITH PELVISUnOhioHealth Southeastern Medical Center Department of Radiology [address] [place] [id number] Patient Name: KAYLEIGH BROWN : 1950 [...] alignment Electronically signed by:Chuckie Harris. Transcribed by: [email or web address], User Resident: Electronically Signed by: CHUCKIE HARRIS @ 10/18/2018 10:38 [facility] Rehabilitation HospitalComment on above:Order Comment: , , , Ordering Provider - JAZMIN AVILA PA-C , CBC COMPLETE BLOOD COUNTon 57-24-4728Maojlxzpexb distribution width Ratio (RBC)14.9 %Ucqril66.5-15.0The Regional Medical CenterComment on above:Order Comment: Yes: Add to Previous draw if ablePerformed By: #### [id number] #### [facility] [address] [place] [address], [facility] CENTERHematocrit Volume Fraction (Bld)26.6 %Low36.0-45.0The Regional Medical CenterComment on above:Order Comment: Yes: Add to Previous draw if ablePerformed By: #### 77609 #### [facility] [address] [place] [address], [facility] CENTERHemoglobin mass conc (Bld)8.5 g/dLLow12.0-15.0The Regional Medical CenterComment on above:Order Comment: Yes: Add to Previous draw if ablePerformed By: #### [id number] #### [facility] [address] [place] [address], [facility] EL[facility] CITYH Entitic mass (RBC)29.7 mqVldxvb15.0-33.0The Regional Medical CenterComment on above:Order Comment: Yes: Add to Previous draw if ablePerformed By: #### 52043 #### [facility] [address] [place] [address], [facility] EL[facility] CITYHC mass conc (RBC)32.0 g/wKDymxwi16.0-35.0The Regional Medical CenterComment on above:Order Comment: Yes: Add to Previous draw if ablePerformed By: #### 39301 #### [facility] [address] [place] [address], [facility] – EL[facility] CITYV Entitic volume (RBC)93.0 eYHuxwqh38.0-98.0The Regional Medical CenterComment on above:Order Comment: Yes: Add to Previous draw if ablePerformed By: #### 93100 #### [facility] [address] [place] [address], USANucleated RBC/100 WBC Ratio (Bld)0 %Normal0-0The Regional Medical CenterComment on above:Order Comment: Yes: Add to Previous draw if ablePerformed By: #### 59713 #### [facility] [address] [place] [address], USAPLAT XXL669 10*3/vVFdfq827-539Yif Regional Medical CenterComment on above:Order Comment: Yes: Add to Previous draw if able Performed By: #### 86906 #### [facility] [address] [place] [address], USARBC #/vol (Bld)2.86 10*6/uLLow3.80-5.00The Regional Medical CenterComment on above:Order Comment: Yes: Add to Previous draw if ablePerformed By: #### 70413 #### [facility] [address] [place] [address], USAWBC #/vol (Bld)5.72 10*3/uLNormal4.00-10.60The Regional Medical CenterComment on above:Order Comment: Yes: Add to Previous draw if ablePerformed By: #### 65088 #### [facility] [address] [place] [address], USABASIC METABOLIC PANELon 19-61-3745Hpjshls mass conc8.9 mg/dLNormal8.6-10.3The Regional Medical CenterComment on above:Order Comment: No: Do not add to previous drawPerformed By: #### 89255 #### [facility] [address] [place] [address], USAChloride molar qodd192 mmol/TFuwiym73-269Uim Regional Medical CenterComment on above:Order Comment: No: Do not add to previous drawPerformed By: #### 87133 #### [facility] [address] [place] [address], USACO2 molar conc26 mmol/QOrryix81-93Eas Regional Medical CenterComment on above:Order Comment: No: Do not add to previous draw Performed By: #### [id number] #### [facility] [address] [place] [place] [address], USACreatinine mass conc0.62 mg/dLNormal0.60-1.20The Regional Medical CenterComment on above:Order Comment: No: Do not add to previous drawPerformed By: #### 48257 #### [facility] [address] [place] [place] [address], USAGFR/1.73 sq M predicted among blacks MDRD vol rate/area (S/P/Bld)mL/min/{1.73_m2}Normal>60The Regional Medical CenterComment on above:Order Comment: No: Do not add to previous drawPerformed By: #### 61829 #### [facility] [address] [place] [place] [address], USAGFR/1.73 sq M predicted among non-blacks MDRD vol rate/area (S/P/Bld)mL/min/{1.73_m2}Normal>60The [facility] Comment on above:Order Comment: No: Do not add to previous drawPerformed By: #### 19566 #### [facility] [address] [place] [address], USAGlucose mass zrso442 mg/pOPokz22-325Vsx Regional Medical CenterComment on above:Order Comment: No: Do not add to previous drawPerformed By: #### 88122 #### [facility] [address] [place] [place] [address], USAPotassium molar conc4.4 mmol/LNormal3.5-5.1The Regional Medical CenterComment on above:Order Comment: No: Do not add to previous drawPerformed By: #### [id number] #### [facility] [address] [place] [address], USASodium molar sehf810 mmol/LVnfcud248-750Qkp Regional Medical CenterComment on above:Order Comment: No: Do not add to previous drawPerformed By: #### 86461 #### [facility] [address] [place] [address], USAUrea nitrogen mass conc12 mg/dLNormal7-25The Regional Medical CenterComment on above:Order Comment: No: Do not add to previous drawPerformed By: #### 87027 #### [facility] [address] [place] [address], [facility] CENTERCBC COMPLETE BLOOD COUNTon 08-68-3041Pniphkmeygx distribution width Ratio (RBC)14.8 %Vczyty65.5-15.0The Regional Medical CenterComment on above:Order Comment: No: Do not add to previous draw Performed By: #### 10343 #### [facility] [address] [place] [address], [facility] CENTERHematocrit Volume Fraction (Bld)27.9 %Low36.0-45.0The Regional Medical CenterComment on above:Order Comment: No: Do not add to previous drawPerformed By: #### 79918 #### [facility] [address] [place] [address], [facility] CENTERHemoglobin mass conc (Bld)9.1 g/dLLow12.0-15.0The Regional Medical CenterComment on above:Order Comment: No: Do not add to previous drawPerformed By: #### 09555 #### [facility] [address] [place] [address], [facility] – EL[facility] CITYH Entitic mass (RBC)29.9 knZbdnzw90.0-33.0The Regional Medical CenterComment on above:Order Comment: No: Do not add to previous drawPerformed By: #### 72600 #### [facility] [address] [place] [address], [facility] CENTERMCHC mass conc (RBC)32.6 g/mLOfujdn13.0-35.0The Regional Medical CenterComment on above:Order Comment: No: Do not add to previous drawPerformed By: #### 61436 #### [facility] [address] [place] [id number], [facility] CENTERMCV Entitic volume (RBC)91.8 lXUruqfl54.0-98.0The Regional Medical CenterComment on above:Order Comment: No: Do not add to previous drawPerformed By: #### 65034 #### [facility] [address] [place] [address], USANucleated RBC/100 WBC Ratio (Bld)0 %Normal0-0The Regional Medical CenterComment on above:Order Comment: No: Do not add to previous drawPerformed By: #### 16634 #### [facility] [address] [address], USAPLAT TRE116 10*3/cGJitu659-547Lah Regional Medical CenterComment on above:Order Comment: No: Do not add to previous draw Performed By: #### 38016 #### [facility] [address] [place] [place] [address], [facility] CENTERRBC #/vol (Bld)3.04 10*6/uLLow3.80-5.00The Regional Medical CenterComment on above:Order Comment: No: Do not add to previous drawPerformed By: #### 84786 #### [facility] [address] [place] [address], USAWBC #/vol (Bld)6.22 10*3/uLNormal4.00-10.60The Regional Medical CenterComment on above:Order Comment: No: Do not add to previous drawPerformed By: #### 52100 #### [facility] [address] [place] [address], USABASIC METABOLIC PANELon 82-49-6334Ixrhlgr mass conc8.4 mg/dLLow8.6-10.3The Regional Medical CenterComment on above:Order Comment: No: Do not add to previous drawPerformed By: #### 62459 #### [facility] [address] [place] [place] [address], USAChloride molar blxe887 mmol/WCyqbpd16-311Gsv Regional Medical CenterComment on above:Order Comment: No: Do not add to previous drawPerformed By: #### 70753 #### [facility] [address] [place] [address], USACO2 molar conc27 mmol/EBjigzh30-61Kmo Regional Medical CenterComment on above:Order Comment: No: Do not add to previous draw Performed By: #### 89399 #### [facility] [address] [place] [address], USACreatinine mass conc0.60 mg/dLNormal0.60-1.20The Regional Medical CenterComment on above:Order Comment: No: Do not add to previous drawPerformed By: #### 25609 #### [facility] [address] [place] [address], USAGFR/1.73 sq M predicted among blacks MDRD vol rate/area (S/P/Bld)mL/min/{1.73_m2}Normal>60The Regional Medical CenterComment on above:Order Comment: No: Do not add to previous drawPerformed By: #### 55440 #### [facility] [address] [place] [address], USAGFR/1.73 sq M predicted among non-blacks MDRD vol rate/area (S/P/Bld)mL/min/{1.73_m2}Normal>60The [facility] Comment on above:Order Comment: No: Do not add to previous drawPerformed By: #### 57674 #### [facility] [address] [place] [address], USAGlucose mass ocdo978 mg/cZZaqa62-881Vzz Regional Medical CenterComment on above:Order Comment: No: Do not add to previous drawPerformed By: #### 79398 #### [facility] [address] [place] [address], USAPotassium molar conc4.2 mmol/LNormal3.5-5.1The Regional Medical CenterComment on above:Order Comment: No: Do not add to previous drawPerformed By: #### 71061 #### [facility] [address] [facility] [place] [address], USASodium molar wmwk313 mmol/EHav274-176Imd Regional Medical CenterComment on above:Order Comment: No: Do not add to previous drawPerformed By: #### 30961 #### [facility] [address] [facility] [place] [address], USAUrea nitrogen mass conc11 mg/dLNormal7-25The Regional Medical CenterComment on above:Order Comment: No: Do not add to previous drawPerformed By: #### 30860 #### [facility] [address] [facility] [place] [address], [facility] CENTERCB W/DIFFon 64-38-3207SNI BASOPHILS0.0 10*3/uLNormal 0.0-0.2The Regional Medical CenterComment on above:Performed By: #### 08568 #### [facility] [address] [facility] [place] [address], [facility] CENTERABS IMM GRANS0.3 10*3/uLHigh0.0-0.2The Regional Medical CenterComment on above:Performed By: #### 81866 #### [facility] [address] [facility] [place] [place] [address], USAABS NEUTROPHILS4.1 10*3/uLNormal1.6-7.6The Regional Medical CenterComment on above:Performed By: #### 04346 #### [facility] [address] [facility] [place] [address], USABasophils #/vol (Bld)0.5 %Normal0.0-1.0The Regional Medical CenterComment on above:Performed By: #### 91814 #### [facility] [address] [facility] [place] [address], [facility] CENTEREosinophils #/vol (Bld)0.2 10*3/uLNormal0.0-0.5The Regional Medical CenterComment on above:Performed By: #### 39347 #### [facility] [address] [facility] [place] [address], [facility] CENTEREosinophils/100 WBC (Bld)3.1 %Normal0.0-6.0The Regional Medical CenterComment on above:Performed By: #### 83725 #### [facility] [address] [place] [address], [facility] CENTERErythrocyte distribution width Ratio (RBC)14.8 %Normal 11.5-15.0The Regional Medical CenterComment on above:Performed By: #### 61865 #### [facility] [address] [place] [address], USAHematocrit Volume Fraction (Bld)24.3 %Low36.0-45.0The Regional Medical CenterComment on above:Performed By: #### 63234 #### [facility] [address] [place] [address], [facility] CENTERHemoglobin mass conc (Bld)7.9 g/dLLow12.0-15.0The Regional Medical CenterComment on above:Performed By: #### 67098 #### [facility] [address] [facility] [place] [place] [address], [facility] CENTERIMMATURE GRANS5.0 %High0.0-1.0The Regional Medical CenterComment on above:Performed By: #### 29858 #### [facility] [address] [place] [id number], [facility] CENTERLymphocytes #/vol (Bld)0.8 10*3/uLLow1.2-4.0The Regional Medical CenterComment on above:Performed By: #### 65112 #### [facility] [address] [facility] [place] [address], [facility] CENTERLymphocytes/100 WBC (Bld)12.9 %Low20.0-45.0The Regional Medical CenterComment on above:Performed By: #### 95947 #### [facility] [address] [facility] [place] [address], [facility] Entitic mass (RBC)29.5 osTooics65.0-33.0The Regional Medical CenterComment on above:Performed By: #### 12258 #### [facility] [address] [facility] [place] [address], [facility] – EL[facility] CITYHC mass conc (RBC)32.5 g/zCKqacyj71.0-35.0The Regional Medical CenterComment on above:Performed By: #### 93530 #### [facility] [address] [facility] [place] [address], [facility] Entitic volume (RBC)90.7 gHJtsoia19.0-98.0The Regional Medical CenterComment on above:Performed By: #### 38794 #### [facility] [address] [facility] [place] [address], [facility] CENTERMonocytes #/vol (Bld)0.6 10*3/uLNormal0.1-1.0The Regional Medical CenterComment on above:Performed By: #### 51508 #### [facility] [address] [facility] [place] [address], XDTQKKPI37.6 %Normal5.0-12.0The Regional Medical CenterComment on above:Performed By: #### 62118 #### [facility] [address] [place] [address], USANeutrophils/100 WBC (Bld)67.9 %Gpdisy69.0-72.0The Regional Medical CenterComment on above:Performed By: #### 65121 #### [facility] [address] [place] [address], USANucleated RBC/100 WBC Ratio (Bld)0 %Normal0-0The Regional Medical CenterComment on above:Performed By: #### 61309 #### [facility] [address] [place] [address], USAPLAT WIF473 10*3/xOZyct806-059Lph Regional Medical CenterComment on above:Performed By: #### 28353 #### [facility] [address] [place] [address], [facility] CENTERRBC #/vol (Bld)2.68 10*6/uLLow3.80-5.00The Regional Medical CenterComment on above:Performed By: #### 07497 #### [facility] [address] [place] [address], USAWBC #/vol (Bld)6.04 10*3/uLNormal4.00-10.60The Regional Medical CenterComment on above:Performed By: #### 11722 #### [facility] [address] [place] [address], USAHEMOGLOBINon 56-61-1156Hoevidjgzn mass conc (Bld)8.7 g/dL Low12.0-15.0The Regional Medical CenterComment on above:Order Comment: No: Do not add to previous drawPerformed By: #### 06643 #### [facility] [address] [address], USABASIC METABOLIC PANELon 00-86-0745Moryrhz mass conc8.7 mg/dLNormal8.6-10.3The Regional Medical CenterComment on above:Order Comment: No: Do not add to previous drawPerformed By: #### 10327 #### [facility] [address] [place] [address], USAChloride molar hqsj842 mmol/ZUumydz23-424Epu Regional Medical CenterComment on above:Order Comment: No: Do not add to previous drawPerformed By: #### 90482 #### [facility] [address] [place] [address], USACO2 molar conc28 mmol/YAdsjuo26-33Xpr Regional Medical CenterComment on above:Order Comment: No: Do not add to previous draw Performed By: #### 34852 #### [facility] [address] [place] [address], USACreatinine mass conc0.71 mg/dLNormal0.60-1.20The Regional Medical CenterComment on above:Order Comment: No: Do not add to previous drawPerformed By: #### 65268 #### [facility] [address] [place] [address], USAGFR/1.73 sq M predicted among blacks MDRD vol rate/area (S/P/Bld)mL/min/{1.73_m2}Normal>60The Regional Medical CenterComment on above:Order Comment: No: Do not add to previous drawPerformed By: #### 49892 #### [facility] [address] [place] [address], USAGFR/1.73 sq M predicted among non-blacks MDRD vol rate/area (S/P/Bld)mL/min/{1.73_m2}Normal>60The [facility] Comment on above:Order Comment: No: Do not add to previous drawPerformed By: #### 26985 #### [facility] [address] [place] [place] [address], USAGlucose mass hldt071 mg/hKIjqu73-567Ura Regional Medical CenterComment on above:Order Comment: No: Do not add to previous drawPerformed By: #### 24664 #### [facility] [address] [place] [address], USAPotassium molar conc4.2 mmol/LNormal3.5-5.1The Regional Medical CenterComment on above:Order Comment: No: Do not add to previous drawPerformed By: #### 10557 #### [facility] [address] [place] [address], USASodium molar piut245 mmol/VWez115-160Yba Regional Medical CenterComment on above:Order Comment: No: Do not add to previous drawPerformed By: #### 17236 #### [facility] [address] [place] [address], USAUrea nitrogen mass conc13 mg/dLNormal7-25The Regional Medical CenterComment on above:Order Comment: No: Do not add to previous drawPerformed By: #### 06073 #### [facility] [address] [place] [address], USACBC COMPLETE BLOOD COUNTon 21-66-6598Rsiivpjlgfj distribution width Ratio (RBC)14.2 %Jymcql79.5-15.0The Regional Medical CenterComment on above:Order Comment: No: Do not add to previous draw Performed By: #### 72363 #### [facility] [address] [place] [address], USAHematocrit Volume Fraction (Bld)19.8 %Low36.0-45.0The Regional Medical CenterComment on above:Order Comment: No: Do not add to previous drawPerformed By: #### 00344 #### [facility] [address] [place] [address], USAHemoglobin mass conc (Bld)6.5 g/dLLow12.0-15.0The Regional Medical CenterComment on above:Order Comment: No: Do not add to previous drawPerformed By: #### [id number] #### [facility] [address] [place] [address], [facility]H Entitic mass (RBC)30.0 laCjskyi49.0-33.0The Regional Medical CenterComment on above:Order Comment: No: Do not add to previous drawPerformed By: #### [id number] #### [facility] [address] [place] [id number], [facility] CITYHC mass conc (RBC)32.8 g/rMBuayjr65.0-35.0The Regional Medical CenterComment on above:Order Comment: No: Do not add to previous drawPerformed By: #### [id number] #### [facility] [address] [place] [address], [facility] Entitic volume (RBC)91.2 qBGqanqc00.0-98.0The Regional Medical CenterComment on above:Order Comment: No: Do not add to previous drawPerformed By: #### [id number] #### [facility] [address] [place] [address], [facility]ENTERNucleated RBC/100 WBC Ratio (Bld)0 %Normal0-0The Regional Medical CenterComment on above:Order Comment: No: Do not add to previous drawPerformed By: #### [id number] #### [facility] [address] [place] [address], [place]AP[place]AT FHI310 10*3/hWMkio267-172Tnt Regional Medical CenterComment on above:Order Comment: No: Do not add to previous draw Performed By: #### [id number] #### [facility] [address] [place] [address], [facility]ENTERRBC #/vol (Bld)2.17 10*6/uLLow3.80-5.00The Regional Medical CenterComment on above:Order Comment: No: Do not add to previous drawPerformed By: #### [id number] #### [facility] [address] [place] [address], USAWBC #/vol (Bld)5.87 10*3/uLNormal4.00-10.60The Regional Medical CenterComment on above:Order Comment: No: Do not add to previous drawPerformed By: #### [id number] #### [facility] [address] [place] [address], USAHEMOGLOBINon 48-83-3278Dtirtuoite mass conc (Bld)8.5 g/dL Low12.0-15.0The Regional Medical CenterComment on above:Order Comment: No: Do not add to previous drawPerformed By: #### 25013 #### [facility] [address] [place] [address], USARBC'S 2 UNITSon 43-51-2006EGHBLPYELL INTERP 1CToledo HospitalComment on above:Order Comment: No: Do not add to previous drawPerformed By: #### [id number] #### [facility] [address] [place] [address], USACROSSMATCH INTERP 2CToledo HospitalComment on above:Order Comment: No: Do not add to previous draw Performed By: #### [id number] #### [facility] [address] [place] [address], USAProtein mass mbdb784 g/dLNormWhite HospitalComment on above:Order Comment: No: Do not add to previous draw Performed By: #### [id number] #### [facility] [address] [place] [address], USAProtein mass concPTNoOhioHealth Hardin Memorial HospitalComment on above:Order Comment: No: Do not add to previous drawResult Comment: Result changed by IF on 10/05/2018 10:04. The previous value was XM. Result changed by IF on 10/06/2018 00:30. The previous value was IS.Performed By: #### [id number] #### [facility] [address] [place] [address], USAResult Comment: Result changed by IF on 10/05/2018 13:18. The previous value was XM. Result changed by IF on 10/06/2018 00:30. The previous value was IS.Protein mass dpzv909 g/dLSt. Anthony's HospitalComment on above:Order Comment: No: Do not add to previous drawPerformed By: #### [id number] #### [facility] [address] [place] [address], USAUNIT ABO 1[facility] Comment on above:Order Comment: No: Do not add to previous drawPerformed By: #### [id number] #### [facility] [address] [place] [address], USAUNIT ABO 2[facility] Comment on above:Order Comment: No: Do not add to previous drawPerformed By: #### [id number] #### [facility] [address] [place] [address], USAUNIT ID [id number] Hardin Memorial HospitalComment on above:Order Comment: No: Do not add to previous draw Performed By: #### [id number] #### [facility] [address] [place] [address], USAUNIT ID [id number] Health Bryan HospitalComment on above:Order Comment: No: Do not add to previous draw Performed By: #### 52165 #### [facility] [address] [place] [address], USAUNIT RH 1PosiSt. Mary's Medical CenterComment on above:Order Comment: No: Do not add to previous drawPerformed By: #### [id number] #### [facility] [address] [place] [address], USAUNIT RH 2PositiveNoOhioHealth Hardin Memorial HospitalComment on above:Order Comment: No: Do not add to previous drawPerformed By: #### [id number] #### [facility] [address] [place] [address], USATYPE AND SCREENon 37-63-2548CBJ INTERPRETATIONONoOhioHealth Hardin Memorial HospitalComment on above:Performed By: #### 75612 #### [facility] [address] [place] [address], USARH INTERPRETATIONPositiveSt. Anthony's HospitalComment on above:Performed By: #### [id number] #### [facility] [address] [place] [address], USABASIC METABOLIC PANELon 86-17-7506Jsdzcdm mass conc8.5 mg/dLLow8.6-10.3The Regional Medical CenterComment on above:Order Comment: No: Do not add to previous drawPerformed By: #### [id number] #### [facility] [address] [place] [address], USAChloride molar ddcn486 mmol/DSzvclg80-133Ypm Regional Medical CenterComment on above:Order Comment: No: Do not add to previous drawPerformed By: #### 92493 #### [facility] [address] [place] [address], USACO2 molar conc26 mmol/PNvzfqp45-86Hor Regional Medical CenterComment on above:Order Comment: No: Do not add to previous draw Performed By: #### 29731 #### [facility] [address] [place] [address], USACreatinine mass conc0.63 mg/dLNormal0.60-1.20The Regional Medical CenterComment on above:Order Comment: No: Do not add to previous drawPerformed By: #### 99636 #### [facility] [address] [place] [address], USAGFR/1.73 sq M predicted among blacks MDRD vol rate/area (S/P/Bld)mL/min/{1.73_m2}Normal>60The Regional Medical CenterComment on above:Order Comment: No: Do not add to previous drawPerformed By: #### 93212 #### [facility] [address] [place] [address], USAGFR/1.73 sq M predicted among non-blacks MDRD vol rate/area (S/P/Bld)mL/min/{1.73_m2}Normal>60The [facility] Comment on above:Order Comment: No: Do not add to previous drawPerformed By: #### [id number] #### [facility] [address] [place] [address], USAGlucose mass amck288 mg/bIRrls78-840Adh Regional Medical CenterComment on above:Order Comment: No: Do not add to previous drawPerformed By: #### 95364 #### [facility] [address] [place] [address], USAPotassium molar conc4.6 mmol/LNormal3.5-5.1The Regional Medical CenterComment on above:Order Comment: No: Do not add to previous drawPerformed By: #### 27612 #### [facility] [address] [place] [address], USASodium molar rnib636 mmol/KVvd272-319Qwd Regional Medical CenterComment on above:Order Comment: No: Do not add to previous drawPerformed By: #### 55021 #### [facility] [address] [place] [address], USAUrea nitrogen mass conc17 mg/dLNormal7-25The Regional Medical CenterComment on above:Order Comment: No: Do not add to previous drawPerformed By: #### 52119 #### [facility] [address] [place] [address], USACalcium mass conc8.5 mg/dLLow8.6-10.3The Regional Medical CenterComment on above:Order Comment: No: Do not add to previous drawPerformed By: #### 40192 #### [facility] [address] [place] [address], USAChloride molar zjbe545 mmol/TJgxpst15-679Imc Regional Medical CenterComment on above:Order Comment: No: Do not add to previous drawPerformed By: #### [id number] #### [facility] [address] [place] [address], USACO2 molar conc21 mmol/AIfcqqg50-02Bpw Regional Medical CenterComment on above:Order Comment: No: Do not add to previous draw Performed By: #### 27110 #### [facility] [address] [place] [address], USACreatinine mass conc0.55 mg/dLLow0.60-1.20The Regional Medical CenterComment on above:Order Comment: No: Do not add to previous drawPerformed By: #### 14716 #### [facility] [address] [place] [address], USAGFR/1.73 sq M predicted among blacks MDRD vol rate/area (S/P/Bld)mL/min/{1.73_m2}Normal>60The Regional Medical CenterComment on above:Order Comment: No: Do not add to previous drawPerformed By: #### 20442 #### [facility] [address] [place] [address], USAGFR/1.73 sq M predicted among non-blacks MDRD vol rate/area (S/P/Bld)mL/min/{1.73_m2}Normal>60[facility] Comment on above:Order Comment: No: Do not add to previous drawPerformed By: #### [id number] #### [facility] [address] [place] [address], USAGlucose mass phaz188 mg/hEKdxr46-476Eum [facility] Medical CenterComment on above:Order Comment: No: Do not add to previous drawPerformed By: #### 12570 #### [facility] [address] [place] [address], USAPotassium molar conc4.8 mmol/LNormal3.5-5.1The Regional Medical CenterComment on above:Order Comment: No: Do not add to previous drawPerformed By: #### 59484 #### [facility] [address] [place] [address], USASodium molar znpq177 mmol/EZbk337-261Zif Regional Medical CenterComment on above:Order Comment: No: Do not add to previous drawPerformed By: #### 77096 #### [facility] [address] [place] [address], USAUrea nitrogen mass conc15 mg/dLNormal7-25The Regional Medical CenterComment on above:Order Comment: No: Do not add to previous drawPerformed By: #### 36003 #### [facility] [address] [place] [address], USACBC COMPLETE BLOOD COUNTon 46-19-6448Fpeukqmaxvl distribution width Ratio (RBC)13.9 %Mezlob94.5-15.0The Regional Medical CenterComment on above:Order Comment: No: Do not add to previous draw Performed By: #### 12011 #### [facility] [address] [place] [address], USAHematocrit Volume Fraction (Bld)25.6 %Low36.0-45.0The Regional Medical CenterComment on above:Order Comment: No: Do not add to previous drawPerformed By: #### 37368 #### [facility] [address] [place] [address], USAHemoglobin mass conc (Bld)8.1 g/dLLow12.0-15.0The Regional Medical CenterComment on above:Order Comment: No: Do not add to previous drawPerformed By: #### 02207 #### [facility] [address] [place] [place] [address], [facility] Entitic mass (RBC)29.5 dgZmibpq59.0-33.0The Regional Medical CenterComment on above:Order Comment: No: Do not add to previous drawPerformed By: #### 60465 #### [facility] [address] [place] [id number], [facility] CITYHC mass conc (RBC)31.6 g/dLLow32.0-35.0The Regional Medical CenterComment on above:Order Comment: No: Do not add to previous drawPerformed By: #### 53925 #### [facility] [address] [facility] [place] [address], [facility]V Entitic volume (RBC)93.1 gACejzcn01.0-98.0The Regional Medical CenterComment on above:Order Comment: No: Do not add to previous drawPerformed By: #### 95987 #### [facility] [address] [place] [address], [facility] CENTERNucleated RBC/100 WBC Ratio (Bld)0 %Normal0-0The Regional Medical CenterComment on above:Order Comment: No: Do not add to previous drawPerformed By: #### 00139 #### [facility] [address] [place] [address], [place]APLAT YUB331 10*3/pNZzmeut819-064Egk Regional Medical CenterComment on above:Order Comment: No: Do not add to previous draw Performed By: #### 55522 #### [facility] [address] [place] [address], [facility] CENTERRBC #/vol (Bld)2.75 10*6/uLLow3.80-5.00The [facility] Medical CenterComment on above:Order Comment: No: Do not add to previous drawPerformed By: #### 08059 #### [facility] [address] [address], [facility] #/vol (Bld)5.86 10*3/uLNormal4.00-10.60The [facility] Medical CenterComment on above:Order Comment: No: Do not add to previous drawPerformed By: #### 26558 #### [facility] [address] [place] [address], [facility] CENTEROperative Reporton [id number] ReportMR#: [id number] I [facility] Pt. Name: Kayleigh Brown Room #: 6AB [id number] Discharge Date: Birthdate: 1950 OPERATIVE REPORT DATE OF SURGERY: 10/02/2018 SURGEON: Pete Garcia M.D. CYANIDE CASE HARDENER: Dr. Thornton., Dr. Harpal Azar, Dr. George Patel, Dr. Ruperto Hernandez. PREOPERATIVE DIAGNOSIS: Left hip [place] B2 periprosthetic femur fracture. POSTOPERATIVE DIAGNOSIS: Left hip [place] B2 periprosthetic femur fracture. PROCEDURE PERFORMED: 1. [...] extremity. She was subsequently diagnosed with a [place] B2 periprosthetic femur fracture at the site [...] the lateral decubitus position using the hip director of marketing communications system. All bony prominences were well padded. [...] Patel MD Date Trans: 10/03/2018 02:44 A/july DN_JN:[id number] cc: Christina Jarvis D.O. [address] [place] [address]IbxfvhZqsSt. Anthony's HospitalVITAMIN D 25-HYDROXYon 22-92-5870MWFPFRF D 25-OH27.7 ng/mLLow30.0-80.0The Regional Medical CenterComment on above:Result Comment: >80.0 Toxicity possible Performed By: #### 55259 #### [facility] [address]*ANAEROBIC CULTUREon 10-02-2018*ANAEROBIC CULTUREClinical Report: (D) Specimen/Source: SWAB/INTRAOP SPEC Collected: 10/02/2018 17:38 Status: Final Last Updated: 10/07/2018 08:20 (1) 1.) LEFT HIP CULT RES (Final) No Anaerobes Isolated 5 DaysNoOhioHealth Hardin Memorial HospitalComment on above:Order Comment: No: Do not add to previous drawPerformed By: #### 90194 #### [facility] [address] [facility] [place] [place] [address], [facility]*WOUND CULTUREon 10-02-2018*WOUND CULTUREClinical Report: (D) Specimen/Source: WOUND/INTRAOP SPEC Collected: 10/02/2018 17:38 Status: Final Last Updated: 10/07/2018 07:52 (1) 1.) LEFT HIP GRAM (Final) No Polys Seen No Bacteria Seen CULT RES (Final) No Growth Day 5NoOhioHealth Hardin Memorial HospitalComment on above: Order Comment: No: Do not add to previous drawPerformed By: #### [id number] #### [facility] [address] [place] [address], USABASIC METABOLIC PANELon 15-18-0714Vrdrsdn mass conc8.5 mg/dLLow8.6-10.3The Regional Medical CenterComment on above:Order Comment: No: Do not add to previous drawPerformed By: #### 34665, [id number] #### [facility] [address] [place] [address], USAChloride molar zxkz803 mmol/TGsongp26-131Hvi Regional Medical CenterComment on above:Order Comment: No: Do not add to previous drawPerformed By: #### 59685, 48652 #### [facility] [address] [place] [address], USACO2 molar conc18 mmol/KLgm52-02Ehu Regional Medical CenterComment on above:Order Comment: No: Do not add to previous draw Performed By: #### 10438, 37119 #### [facility] [address] [place] [address], USACreatinine mass conc0.66 mg/dLNormal0.60-1.20The [facility] Medical CenterComment on above:Order Comment: No: Do not add to previous drawPerformed By: #### 43224, 44994 #### [facility] [address] [place] [place] [address], USAGFR/1.73 sq M predicted among blacks MDRD vol rate/area (S/P/Bld)mL/min/{1.73_m2}Normal>60The Regional Medical CenterComment on above:Order Comment: No: Do not add to previous drawPerformed By: #### 36292, 85126 #### [facility] [address] [place] [address], USAGFR/1.73 sq M predicted among non-blacks MDRD vol rate/area (S/P/Bld)mL/min/{1.73_m2}Normal>60[facility] Comment on above:Order Comment: No: Do not add to previous drawPerformed By: #### 65206, 87974 #### [facility] [address] [place] [address], USAGlucose mass vupz516 mg/uBGpvr28-352Vyr Regional Medical CenterComment on above:Order Comment: No: Do not add to previous drawPerformed By: #### 15771, 48686 #### [facility] [address] [place] [address], USAPotassium molar conc4.8 mmol/LNormal3.5-5.1The Regional Medical CenterComment on above:Order Comment: No: Do not add to previous drawPerformed By: #### 25684, 66404 #### [facility] [address] [place] [address], USASodium molar imps871 mmol/ZDye167-974Wet Regional Medical CenterComment on above:Order Comment: No: Do not add to previous drawPerformed By: #### 73978, 68375 #### [facility] [address] [place] [address], USAUrea nitrogen mass conc13 mg/dLNormal7-25The Regional Medical CenterComment on above:Order Comment: No: Do not add to previous drawPerformed By: #### 43582, [id number] #### [facility] [address] [place] [address], [facility] COMPLETE BLOOD COUNTon 98-62-5654Caddqmgzlvg distribution width Ratio (RBC)14.1 %Hrkqdg66.5-15.0The Regional Medical CenterComment on above:Order Comment: No: Do not add to previous draw Performed By: #### 45668 #### [facility] [address] [facility] [place] [address], [facility] CENTERHematocrit Volume Fraction (Bld)25.9 %Low36.0-45.0The Regional Medical CenterComment on above:Order Comment: No: Do not add to previous drawPerformed By: #### 24435 #### [facility] [address] [facility] [place] [address], [facility] CENTERHemoglobin mass conc (Bld)8.6 g/dLLow12.0-15.0The Regional Medical CenterComment on above:Order Comment: No: Do not add to previous drawPerformed By: #### 56877 #### [facility] [address] [facility] [place] [place] [address], [facility]H Entitic mass (RBC)30.2 xqEjnteb06.0-33.0The Regional Medical CenterComment on above:Order Comment: No: Do not add to previous drawPerformed By: #### 59635 #### [facility] [address] [facility] [place] [address], [facility] EL[facility] CITYHC mass conc (RBC)33.2 g/eZVwdmnl57.0-35.0The [facility] Medical CenterComment on above:Order Comment: No: Do not add to previous drawPerformed By: #### 90822 #### [facility] [address] [facility] [place] [place] [address], [facility] CITYV Entitic volume (RBC)90.9 bHQqjclf33.0-98.0The Regional Medical CenterComment on above:Order Comment: No: Do not add to previous drawPerformed By: #### 60283 #### [facility] [address] [place] [address], USANucleated RBC/100 WBC Ratio (Bld)0 %Normal0-0The Regional Medical CenterComment on above:Order Comment: No: Do not add to previous drawPerformed By: #### 70082 #### [facility] [address] [place] [address], USAPLAT ZLB797 10*3/lIMdlksl369-633Jwz Regional Medical CenterComment on above:Order Comment: No: Do not add to previous draw Performed By: #### 80775 #### [facility] [address] [place] [address], [facility] CENTERRBC #/vol (Bld)2.85 10*6/uLLow3.80-5.00The [facility] Medical CenterComment on above:Order Comment: No: Do not add to previous drawPerformed By: #### 83994 #### [facility] [address] [place] [address], [facility] CENTERWBC #/vol (Bld)8.00 10*3/uLNormal4.00-10.60The [facility] Medical CenterComment on above:Order Comment: No: Do not add to previous drawPerformed By: #### 28856 #### [facility] [address] [place] [address], USAErythrocyte distribution width Ratio (RBC)14.2 %Normal 11.5-15.0The Regional Medical CenterComment on above:Order Comment: This order is a replacement of the rejected order with accession number [id number].Performed By: #### 71343 #### [facility] [address] [place] [address], USAHematocrit Volume Fraction (Bld)27.0 %Low36.0-45.0The Regional Medical CenterComment on above:Order Comment: This order is a replacement of the rejected order with accession number [id number].Performed By: #### 10533 #### [facility] [address] [facility] [address], [facility] CENTERHemoglobin mass conc (Bld)8.7 g/dLLow12.0-15.0The Regional Medical CenterComment on above:Order Comment: This order is a replacement of the rejected order with accession number [id number].Performed By: #### 72500 #### [facility] [address] [facility]. [place] [id number], [facility] Entitic mass (RBC)29.6 awEzqeuw78.0-33.0The Regional Medical CenterComment on above:Order Comment: This order is a replacement of the rejected order with accession number [id number].Performed By: #### 91370 #### [facility] [address] [facility] [place] [address], [facility] CITYHC mass conc (RBC)32.2 g/bEItscpr97.0-35.0The Regional Medical CenterComment on above:Order Comment: This order is a replacement of the rejected order with accession number [id number].Performed By: #### 72628 #### [facility] [address] [place] [address], [facility] Entitic volume (RBC)91.8 lOSmpnyp81.0-98.0The Regional Medical CenterComment on above:Order Comment: This order is a replacement of the rejected order with accession number [id number].Performed By: #### [id number] #### [facility] [address] [place] [address], [facility] CENTERNucleated RBC/100 WBC Ratio (Bld)0 %Normal0-0The Regional Medical CenterComment on above:Order Comment: This order is a replacement of the rejected order with accession number [id number].Performed By: #### 59653 #### [facility] [address] [place] [address], USAPLAT PDU675 10*3/aZYhknmu613-447Siz [facility] Medical CenterComment on above:Order Comment: This order is a replacement of the rejected order with accession number [id number].Performed By: #### 69922 #### [address] [place] [address], [facility] CENTERRBC #/vol (Bld)2.94 10*6/uLLow3.80-5.00The Regional Medical CenterComment on above:Order Comment: This order is a replacement of the rejected order with accession number [id number].Performed By: #### 616[address] #### [place] [address], [facility] CENTERWBC #/vol (Bld)5.98 10*3/uLNormal4.00-10.60The Regional Medical CenterComment on above:Order Comment: This order is a replacement of the rejected order with accession number [id number].Performed By: #### [id number] #### [place] [address], [facility] LEFT 1 OR 2 VWS WITH PELVISon 61-87-7044PVN LEFT 1 OR 2 VWS WITH PELVISUnOhioHealth Southeastern Medical Center Department of Radiology [address] [place] [phone] Patient Name: KAYLEIGH BROWN : 1950 Sex: F Age: Race: White Pt. Location: [id number] Patient Status: I Ordered Date: 10/02/2018 7:15:00 [...] Documentation Electronically signed by:Chuckie Harris. Transcribed by: [email or web address], User Resident: Electronically Signed by: CHUCKIE HARRIS @ 10/03/2018 05:06 [facility] HospitalComment on above:Order Comment: No: Do not add to previous drawPORTABLE HIP LEFT 1 OR 2 VWS WITH PELVISon 51-33-8886DGTHBXTC HIP LEFT 1 OR 2 VWS WITH PELVISUnOhioHealth Southeastern Medical Center Department of Radiology [address] [place] [phone] Patient Name: KAYLEIGH BROWN : 1950 Sex: F Age: Race: White Pt. 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 Transcribed by: [email or web address], User Resident: Electronically Signed by: CHUCKIE HARRIS @ 10/03/2018 10:05 AMNormalGalion HospitalComment on above:Order Comment: No: Do not add to previous drawSODIUM BLOODon 39-27-8555Vjpcce molar syam327 mmol/KFlw566-899Vbj Regional Medical CenterComment on above:Order Comment: No: Do not add to previous drawPerformed By: #### [id number] #### [facility] [address] [place] [address], USAVENOUS BLOOD GASon 24-98-9565TAMH EXCESS2 mmol/LNormal-2-2 The Regional Medical CenterComment on above:Performed By: #### [id number] #### [facility] [address] [place] [address], USADELIVERY SYSTEMSUNKNOWN - ORNormalThe Regional Medical CenterComment on above:Performed By: #### [id number] #### [facility] [address] [place] [address], USAHCO3 molar conc (Bld)27 mmol/CJmgghp55-46Rvc Regional Medical CenterComment on above:Performed By: #### [id number] #### [facility] [address] [place] [address], USAOxygen ppres (Bld)35 mm[Hg]Kgm68-279Qrx Regional Medical CenterComment on above:Performed By: #### [id number] #### [facility] [address] [place] [address], USAOxygen saturation in Blood65.8 %Lvjvfz68.0-85.0The Regional Medical CenterComment on above:Performed By: #### [id number] #### [facility] [address] [place] [address], JVQNAU906 fxSzFcvaws75-01Fiw Regional Medical CenterComment on above:Performed By: #### [id number] #### [facility] [address] [place] [address], USApH (Bld)7.40 [pH]Normal7.33-7.43The Regional Medical CenterComment on above:Performed By: #### 48731 #### [facility] [address] [place] [address], USAVITAMIN D 25-HYDROXYon 31-57-4310ECWJJQU D 25-OH27.4 ng/mL Low30.0-80.0The Regional Medical CenterComment on above:Result Comment: >80.0 Toxicity possiblePerformed By: #### [id number], 87543 #### [facility] [address] [place] [place] [address], USABASIC METABOLIC PANELon 25-79-6437Lkcfmoj mass conc9.1 mg/dLNormal8.6-10.3The Regional Medical CenterComment on above:Order Comment: No: Do not add to previous drawPerformed By: #### [id number] #### [facility] [address] [place] [address], USAChloride molar conc98 mmol/GEusfqb18-037Jbh Regional Medical CenterComment on above:Order Comment: No: Do not add to previous drawPerformed By: #### [id number] #### [facility] [address] [place] [place] [address], USACO2 molar conc26 mmol/ZOrnlbe18-32Ngt [facility] Medical CenterComment on above:Order Comment: No: Do not add to previous draw Performed By: #### [id number] #### [facility] [address] [place] [address], USACreatinine mass conc0.66 mg/dLNormal0.60-1.20The Regional Medical CenterComment on above:Order Comment: No: Do not add to previous drawPerformed By: #### [id number] #### [facility] [address] [place] [address], USAGFR/1.73 sq M predicted among blacks MDRD vol rate/area (S/P/Bld)mL/min/{1.73_m2}Normal>60The Regional Medical CenterComment on above:Order Comment: No: Do not add to previous drawPerformed By: #### [id number] #### [facility] [address] [place] [address], USAGFR/1.73 sq M predicted among non-blacks MDRD vol rate/area (S/P/Bld)mL/min/{1.73_m2}Normal>60The [facility] Comment on above:Order Comment: No: Do not add to previous drawPerformed By: #### [id number] #### [facility] [address] [place] [address], USAGlucose mass epjx869 mg/uYZbey17-221Wba Regional Medical CenterComment on above:Order Comment: No: Do not add to previous drawPerformed By: #### [id number] #### [facility] [address] [place] [address], USAPotassium molar conc4.2 mmol/LNormal3.5-5.1The [facility] Medical CenterComment on above:Order Comment: No: Do not add to previous drawPerformed By: #### [id number] #### [facility] [address] [place] [address], USASodium molar sbuh936 mmol/KWvt480-131Qbj [facility] Medical CenterComment on above:Order Comment: No: Do not add to previous drawPerformed By: #### 62654 #### [facility] [address] [place] [address], USAUrea nitrogen mass conc13 mg/dLNormal7-25The [facility] Medical CenterComment on above:Order Comment: No: Do not add to previous drawPerformed By: #### [id number] #### [facility] [address] [place] [address], [facility]ICAL CENTERCBC COMPLETE BLOOD COUNTon 24-40-2311Aovlnxppcsk distribution width Ratio (RBC)14.2 %Mubuyw25.5-15.0The Regional Medical CenterComment on above:Order Comment: No: Do not add to previous draw Performed By: #### [id number] #### [facility] [address] [place] [address], L[facility]ACE MEDICAL CENTERHematocrit Volume Fraction (Bld)26.7 %Low36.0-45.0The [facility] Medical CenterComment on above:Order Comment: No: Do not add to previous drawPerformed By: #### 45154 #### [facility] [address] [place] [address], USAHemoglobin mass conc (Bld)8.7 g/dLLow12.0-15.0The [facility] Medical CenterComment on above:Order Comment: No: Do not add to previous drawPerformed By: #### [id number] #### [facility] [address] [place] [address], [facility] Entitic mass (RBC)30.2 bcUbtsjx63.0-33.0The [facility] Medical CenterComment on above:Order Comment: No: Do not add to previous drawPerformed By: #### [id number] #### [facility] [address] [place] [address], [facility] – ELK CITYHC mass conc (RBC)32.6 g/sQAjjurp13.0-35.0The Regional Medical CenterComment on above:Order Comment: No: Do not add to previous drawPerformed By: #### 65041 #### [facility] [address] [place] [address], [facility] Entitic volume (RBC)92.7 eKCcqslc23.0-98.0The [facility] Medical CenterComment on above:Order Comment: No: Do not add to previous drawPerformed By: #### [id number] #### [facility] [address] [place] [address], L[facility]ACE MEDICAL CENTERNucleated RBC/100 WBC Ratio (Bld)0 %Normal0-0The Regional Medical CenterComment on above:Order Comment: No: Do not add to previous drawPerformed By: #### 33791 #### [facility] [address] [place] [address], L[facility]ICAL CENTERPLAT FSK831 10*3/zOHfnwwo369-178Ala Regional Medical CenterComment on above:Order Comment: No: Do not add to previous draw Performed By: #### 97744 #### [facility] [address] [place] [address], L[facility] MEDICAL CENTERRBC #/vol (Bld)2.88 10*6/uLLow3.80-5.00The [facility] Medical CenterComment on above:Order Comment: No: Do not add to previous drawPerformed By: #### 73376 #### [facility] [address] [place] [address], L[facility] MEDICAL CENTERWBC #/vol (Bld)6.63 10*3/uLNormal4.00-10.60The [facility] Medical CenterComment on above:Order Comment: No: Do not add to previous drawPerformed By: #### [id number] #### [address] [address], USACT LOWER EXTREMITY WO CONTRAST LEFTon 15-86-2574VD LOWER EXTREMITY WO CONTRAST LEFTUnOhioHealth Southeastern Medical Center Department of Radiology [address] [place] [phone] Patient Name: KAYLEIGH BROWN : 1950 Sex: F Age: Race: White Pt. Location: [id number] Patient Status: I Ordered Date: 10/01/2018 4:45:00 [...] the lesser trochanter. Superficial soft tissues: Skin ahri, postoperative air and swelling. Fluid and air [...] stem. Electronically signed by:Chuckie Harris. Transcribed by: [email or web address], User Resident: Electronically Signed by: CHUCKIE HARRIS @ 10/02/2018 09:09 [facility] Rehabilitation HospitalComment on above:Order Comment: R/O Fractures, CT scan of entire femur for preop evaluationFEMUR LEFT 2 [facility] 52-80-6550ZBHTU LEFT 2 [facility]ITALni[facility] Department of Radiology [address] [place] [phone] Patient Name: KAYLEIGH BROWN : 1950 Sex: F Age: Race: White Pt. Location: [id number] Patient Status: I Ordered Date: 10/01/2018 3:55:00 [...] CT Electronically signed by:Chuckie Harris. Transcribed by: [email or web address], User Resident: Electronically Signed by: CHUCKIE HARRIS @ 10/02/2018 09:33 AMNormalThe Regional Medical CenterComment on above:Order Comment: R/O FXPROTHROMBIN TIMEon 73-90-1928VHF Coag RelTime (PPP)1.12 {INR}Normal0.91-1.16The Regional Medical CenterComment on above:Order Comment: No: [...] OPTIMAL THERAPEUTIC RANGE. CHEST 1995;108:231S-246S.Performed By: #### [id number] #### [facility] [address] [place] [address], [facility] MEDICAL CENTERProthrombin time (PT) Coag time (PPP)14.4 rStuhih75.3-14.8 The [facility] Medical CenterComment on above:Order Comment: No: Do not add to previous drawResult Comment: ALL RESULTS MUST BE INTERPRETED WITH RESPECT TO BLOOD DRAWING ARTIFACT OR DILUTION ERROR OF ANTICOAGULANT AT THE TIME OF SAMPLING.Performed By: #### [id number] #### [facility] [address] [place] [address], USARBC'S 2 UNITSon 25-82-0224CYFQIIJGGO INTERP 1CToledo HospitalComment on above:Performed By: #### [id number] #### [facility] [address] [place] [address], L[facility] MEDICAL CENTERCROSSMATCH INTERP 2CToledo HospitalComment on above:Performed By: #### 79942 #### [facility] [address] [address], [facility]ICAL CENTERProtein mass mkyy390 g/dLNoOhioHealth Hardin Memorial HospitalComment on above:Performed By: #### 14619 #### [facility] [address] [place] [place] [address], [facility]ICAL CENTERProtein mass concRENoOhioHealth Hardin Memorial HospitalComment on above:Result Comment: Result changed by IF on 10/02/2018 16:58. The previous value was XM. Result changed by IF on 10/02/2018 21:55. The previous value was IS. Result changed by IF on 10/05/2018 06:35. The previous value was XM.Performed By: #### [id number] #### [facility] [address] [place] [address], USAUNIT ABO 1[facility] Comment on above:Performed By: #### 26585 #### [facility] [address] [place] [address], USAUNIT ABO 2[facility] Comment on above:Performed By: #### [id number] #### [facility] [address] [place] [address], USAUNIT ID [id number]. Anthony's HospitalComment on above:Performed By: #### 27943 #### [facility] [address] [place] [address], USAUNIT ID [id number]. Anthony's HospitalComment on above:Performed By: #### 51561 #### [facility] [address] [place] [address], USAUNIT RH 1PosiSt. Mary's Medical CenterComment on above:Performed By: #### 94212 #### [facility] [address] [place] [address], USAUNIT RH 2PositiveSt. Anthony's HospitalComment on above:Performed By: #### 76261 #### [facility] [address] [place] [address], USATYPE AND SCREENon 91-83-4713BLA INTERPRETATIONCleveland Clinic Euclid HospitalComment on above:Performed By: #### 34470 #### [facility] [address] [place] [address], USARH INTERPRETATIONPositiveSt. Anthony's HospitalComment on above:Performed By: #### 06382 #### [facility] [place] Vital Signs Date TimeVital SignValuePerforming WmnteiecuAcoxnldb44-77-3958 09:04-0400Body pawisf750.72 cmDaifeanyi Jarvis DO Work Phone: [facility]08-20-2025 09:04-0400 Body mass index (BMI) [Ratio]31.3 kg/w4Jjpdiifeanyi Jarvis DO Work Phone: [phone]43[facility]08-20-2025 09:04-0400 Body [degF]Christina Jarvis DO Work Phone: [phone]08-20-2025 09:04-0400 Body focuen14.44 kgDaifeanyi Lockwoodzac DO Work Phone: [phone]36[facility]08-20-2025 09:04-0400 Diastolic blood bjzhwvyz84 mm[Hg]Christina Jarvis DO Work Phone: [phone]74[facility]08-20-2025 09:04-0400 Heart rate83 /minDavikaron Matheus DO Work Phone: [phone]08-20-2025 09:04-0400 SaO2% (BldA) [Mass fraction]98 %Christina Jarvis DO Work Phone: [phone]08-20-2025 09:04-0400 Systolic blood wvobutan635 mm[Hg]Christina Jarvis DO Work Phone: [phone]11-08-2024 11:55-0500 Body datqzb624.72 cmOhio State University [facility] Center11-08-2024 11:55-0500Body mass index (BMI) [Ratio]33.5 kg/z9FgpvjssmmOhio State University [facility] Center11-08-2024 11:55-0500Body qxwmmlyyphs07.6 [degF][facility]11-08-2024 11:55-0500Body yjwssi134.01 kgOhio State University [facility] Medical Center11-08-2024 11:55-0500Diastolic blood bokdjghy90 mm[Hg][facility] 08-31-2024 11:55-0500Heart rate89 /[facility] 08-31-2024 11:55-0500Respiratory rate16 /[facility] 08-31-2024 11:55-2522DpY2% (BldA) [Mass fraction]97 %[facility]11-08-2024 11:55-0500Systolic blood acvrgado401 mm[Hg][facility]08-05-2024 14:42-0400Body cjtobb431.41 cmDO Christina Jarvis Work Phone: [phone]08-05-2024 14:42-0400 Body mass index (BMI) [Ratio]46.3 kg/m2DO Christina Jarvis Work Phone: [phone]08-05-2024 14:42-0400 Body arjvtxbggjz08 [degF]DO Christina Jarvis Work Phone: [phone]08-05-2024 14:42-0400 Body rdahmq67.97 kgDO Christina Jarvis Work Phone: [phone]08-05-2024 14:42-0400 Diastolic blood lvozwffv58 mm[Hg]DO Christina Jarvis Work Phone: [phone]08-05-2024 14:42-0400 Heart rate94 /Yvette Jarvis Work Phone: [phone]08-05-2024 14:42-0400 Respiratory rate18 /Yvette Jarvis Work Phone: [phone] [address]08-05-2024 14:42-0400 SaO2% (BldA) [Mass fraction]95 %DO Christina Jarvis Work Phone: [phone]08-05-2024 14:42-0400 Systolic blood emshpffp947 mm[Hg]DO Christina Jarvis Work Phone: [phone]03-18-2022 11:30-0400 Body ishthk489.26 cmDaifeanyi Jarvis Other [employer] Other 03-18-2022 11:30-0400Body mass index (BMI) [Ratio] 32.63 kg/u2SgrwwChristina Jarvis Other [employer] Other 03-18-2022 11:30-0400Body dtvxaowfblo68.6 [degF]Christina Jarvis Other [employer] Other 03-18-2022 11:30-0400Body .25 kgChristina Jarvis Other [employer] Other 03-18-2022 11:30-0400Diastolic blood mujooqdl49 mm[Hg] Christina Jarvis Other [employer] Other 03-18-2022 11:30-0400Respiratory rate18 /minDzaheer Jarvis Other [employer] Other 03-18-2022 11:30-1681YtX6% (BldA) [Mass fraction]98 % Christina Jarvis Other [employer] Other 03-18-2022 11:30-0400Systolic blood szqieroo470 mm[Hg] Christina Jarvis Other [employer] Other Encounters Encounter DateEncounter TypeCare ProviderFacilityStart: 86-21-3953thudcyuqfe Christina JarvisFacility:[facility] Centertart: 06-12-2025 End: 54-20-3825wilfulyuutScqeb Girvin DO Work Phone: [facility] Work Phone: Start: 06-12-2025 End: 77-88-6045Etexsph encounter procedureDaifeanyi Jarvis DO-[facility] Work Phone: Start: 06-10-2025 End: 14-75-7764Oasnerp encounter procedureDaifeanyi Jarvis DO-[facility] [place] Work Phone: Start: 06-10-2025 End: 36-54-8317ifefgoumpuPipob Girvin DO Work Phone: [facility] Work Phone: Start: 08-31-2024 End: 07-42-8533fjvjhqpqgpFivjoepqg [facility] Work Phone: Start: 08-31-2024 End: 72-20-9924Wosqsqd encounter procedureDavis [facility] Work Phone: Start: 05-28-2024 End: 88-76-0584ojzvqomwmsYC Christina Jarvis Work Phone: [facility] Work Phone: Start: 05-28-2024 End: 32-85-2182Gphrrde encounter procedureDO Christina Jarvis Work Phone: [facility] [place] Work Phone: Start: 05-24-2024 End: 50-90-0743lgmuyjjrkxNM David Girvin Work Phone: [facility] Work Phone: Start: 05-24-2024 End: 68-64-8671Gzxgins encounter procedureDO Christina Jarvis Work Phone: [facility] [place] Work Phone: Start: 79-25-1415Lph-patient / Non-visitDO Christina Jarvis Work Phone: [facility] Work Phone: Start: 05-18-2023 End: 29-09-7115bufmtodmnwGvhbq Girvin Other [employer] Other Start: 80-70-0753Vemowngsj encounterDaifeanyi Cole [facility] [place]Start: 02-04-2023 End: 55-72-5624cpophithspWG David Matheus Work Phone: [facility] Work Phone: Start: 02-04-2023 End: 77-53-1879Isezkqm encounter procedureDO Christina Jarvis Work Phone: [facility] [place] Work Phone: Start: 01-28-2023 End: 85-81-2659ldcbuxanzyNnwkc Girvin Other [employer] Other Start: 16-15-4275Nkkwvibda encounterDavikaron [facility] [place]vueStart: 12-22-2022 End: 42-64-1565ydaniuvuvpKP MARY MAY .Facility:J7Bgnyh: 10-11-2022 End: 53-67-4914qeprzlgrczVytqj Girvin Other [employer] Other Start: 05-05-0450Syiqrtbrm encounterDavikaron Cole [facility] [place]vueStart: 09-29-2022 End: 89-67-1178ztmsibngonJkdue Girvin Other [employer] Other Start: 53-23-9642Yyogkathg encounterDavikaron CunninghamG [facility] [place]vueStart: 01-08-2022 End: 04-44-8788cqoqrqbbspIrppj Girvin Other [employer] Other Start: 94-38-3675Ivcapm outpatient visit 25 minutes Christina Cole [facility] [place]vueStart: 01-02-2019 End: 91-68-0438Smmlpas encounter procedureGREGORY OTTOFacility:[facility]ENTERtart: 11-27-2018 End: 34-09-1069Ldretqd encounter procedureGREGORY OTTOFacility:[facility]ENTERtart: 10-18-2018 End: 74-08-2113Oofbckg encounter procedureGREGORY OTTOFacility:[facility]ENTERtart: 10-01-2018 End: 80-57-3178Nssnzrukbh and management of inpatientNABIL EBRAHEIMFacility:[facility] Procedures DateProcedureProcedure DetailPerforming ClinicianStart: 74-39-0315Ogwud culture Christina Jarvis Work Phone: Start: 06-34-6238Ytomldir screenNABIL EBRAHEIMComment on above:Performed By: #### [id number] #### [facility] [address] [place] [address], USAStart: 19-04-4906VUQOTDO OF SYNTH SUB FROM L HIP JT, FEMORAL, OPEN APPROACHNABIL EBRAHEIMStart: 46-93-8095GKCNURS L HIP JT, FEMORAL W METAL, UNCEMENT, OPENNABIL EBRAHEIMStart: 72-00-3163YSPGEZJDMO LEFT FEMORAL SHAFT WITH INT FIX, OPEN APPROACHNABIL EBRAHEIMStart: 30-52-1945Xggrzscg screen PETE EBRAHEIMComment on above:Performed By: #### [id number] #### [facility] [address] [place] [address], USAStart: 04-02-8624UJYWKXITE NONAUT RED BLOOD CELLS IN PERIPH VEIN, PERCNABIL EBRAHEIM Plan of Treatment DateCare ActivityDetailAuthorStart: 71-95-1276Zcbhslgc identified in Urine by CultureUrine [facility] Hospitaltart: 37-76-6687Kzwcl [facility] Systemtart: 91-22-8528Llbjfzqi identified in Urine by [facility] Hospitaltart: 78-01-9076Vukvyuyw identified in Urine by [facility] SystemBacteria identified in Urine by [facility] SystemComprehensive metabolic 1999 panel - Serum or PlasmaOhio State [facility] Comprehensive metabolic 2000 panel - Serum or PlasmaOhio State University Wexner Medical CenterGlucose measurement estimated from glycated hemoglobinOhio State University Wexner Medical CenterGlucose measurement estimated from glycated hemoglobinOhio State University Wexner Medical CenterGlucose measurement estimated from glycated hemoglobin [facility] CenterHemoglobin A1c/Hemoglobin.total in Blood [facility] CenterHemoglobin A1c/Hemoglobin.total in Blood [facility] CenterUrine cultureMemorial Medical Center Immunizations Immunization DateImmunizationNotesCare LrkdzcdqEtszftxd68-26-9881NEOAD-59 Comirnaty (Pfizer) Tri-Sucrose 12+[facility]10-22-2024 influenza, high dose seasonal, preservative-freeOhio State University We[facility] Medical Center01-04-2024RSV, preF3, adj, pfOhio State University Wexner Medical Center10-02-2023 COVID-19 (PFIZER) 12Y and olderOhio [facility] 23-46-0820Jgtiprjzx vaccine, quadrivalent, adjuvantedOhio State University [facility] Center09-22-2022COVID-19 mRNA Bivalent Booster (Pfizer)[facility]09-22-2022Fluzone QIV High-Dose 65YR+[facility]03-18-2022Shingrix 50 MCG/0.5ML; Translations: [Shingrix 50 MCG/0.5ML] Christina Jarvis Other [employer] Other 10150883-15-1608YCTEP-86 Vaccine Pfizer - Documentation Purposes OnlyChristina Jarvis Other [facility]09-20-2021influenza, seasonal, injectableDaifeanyi Jarvis Other [facility]09-20-2021Fluzone QIV High-Dose 65YR+[facility]02-23-2021COVID-19 Vaccine Pfizer - Documentation Purposes OnlyChristina Jarvis Other [facility]02-02-2021COVID-19 Vaccine Pfizer - Documentation Purposes OnlyChristina Jarvis Other [address] [place], [place] 3235909-17-2020Seasonal trivalent influenza vaccine, adjuvanted, preservative [facility]09-17-2020influenza, seasonal, injectableDavid Girvin Other [address] [place], [place] 3235910-09-2019influenza, seasonal, injectableDavid Girvin Other [address] [place], [place] 3235910-09-2019influenza, high dose seasonal, preservativeSelect [facility]ty [facility] [place]10-17-2018 influenza, high dose seasonal, preservativeSelect Medical Specialty Hospital - [facility] [place]10-17-2018influenza, seasonal, injectableDavid Girvin Other [address] [place], [place] 3235910-13-2017influenza, high dose seasonal, preservativeSelect Medical Specialty Hospital - [place]11-07-2016 influenza, seasonal, injectableDavid Girvin Other [address] [place], [place] 3235911-04-2016 pneumococcal conjugate vaccine, 13 valentDavid Girvin Other [address] [place], [place] 3235910-20-2015 pneumococcal polysaccharide vaccine, 23 valentDavid Girvin Other [address] [place], [place] 3235910-03-2014zoster vaccine, liveDavid Girvin Other [address] [place] [address] Payers DatePayer CategoryPayerPolicy [id number] [id number] Health [id number] [id number] .[id number] .[id number] [id number] [id number] [id number] [id number] 2.0.1.467984.3.579.2.531 Social History DateTypeDetailFacilityUnknown if ever smokedKing[place] Mines [employer] Other Sex Assigned At BirthSex Assigned At [employer] Other Start: [id number] [facility]: 02-07-2023 End: [id number] smoking status NHISNever smoked tobacco (finding) [facility]: [id number] (finding)[facility] Clinical Notes 02-12-2021 to 05-18-2023 Note Date & EdmgIuoyIrtcxntv61-90-6245 Evaluation note* Encounter Date Diagnosis Assessment Notes Treatment Notes Treatment Clinical Notes Apr, Gastritis (ICD-10 - K29.70) [place] [employer] Other [id number] Evaluation note* Encounter Date Diagnosis Assessment Notes Treatment Notes Treatment Clinical Notes Jan, Hypertension (ICD-10 - I10) Jan,Hyperlipidemia (ICD-10 - E78.5) Jan,Hyperglycemia (ICD-10 - R73.9) Jan,Weight loss (ICD-10 - R63.4) Jan,Hematuria (ICD-10 - R31.9) Jan,Other nursing home (current) drug therapy (ICD-10 - Z79.899) [employer] Other 03-18-2022 Evaluation note* Encounter Date Diagnosis [...] is 2.16 which is normal. 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 Thornton. I did recommend that she get the Shingrix vaccine series. She can obtain this at her local pharmacy. A prescription was provided. [place] [employer] Other [id number] Note [id number]:127[facility] 02-12-2021 NoteCystoscopy ? Voiding after the [...] if you have a fever over 100 degrees.[facility] Evaluation noteNo InformationNortGuthrie [facility] [employer] Other Evaluation noteNo assessment information available [facility] Work Phone: Evaluation note* Diagnosis Onset Date Resolution Status Depression acuteGastritisacuteHematuriaacuteHyperglycemiaacuteHyperlipidemiaacute Hypertensionacute [facility] Work Phone: Evaluation note* Diagnosis Onset Date Resolution Status Admit Date Balance problem acuteAugust 2024 9:14amDepressionacuteAugust 2024 9:14amGastritis acuteAugust 2024 9:14amHematuriaacuteAugust 2024 9:14amHyperglycemia acuteAugust 2024 9:14amHyperlipidemiaacuteAugust 2024 9:14am HypertensionacuteAugust 2024 9:14amIntentional weight lossacuteAugust 2024 9:14am [facility] Work Phone: History general Narrative - Reported* Type Description Date Medical History Last Pap 2010; Dr. Gonsalez Medical HistoryLast Mammogram ; [facility] (normal)Medical History No history of Stress Test, Colonoscopy or CT of the Abdomen or PelvisMedical HistoryLast EKG around age 19 before surgeryMedical HistoryNo history of FracturesMedical HistoryHistory of Chicken Pox as a ChildMedical History [facility]amm[facility] 08[facility]15-13[facility] HistoryFlu Vaccine and Pneumonia Vaccine 2014Medical HistoryPt has O positive bloodSurgical HistoryT & A as a childSurgical Historybilateral breast biopsies; all were benignSurgical HistoryLeft knee replacement, Dr. RandallHsjxvptw11-4-8518Anurbdpt Historyrt knee replacement Dr Randall02/11/urgical HistoryMRI of back - Dr HolbrookNustqbb5686 Surgical HistoryXR of hip - Dr RandallOfrjpajz6146Fxzrouix HistoryPain clinic - injection left nrf0542Fxgihhzq Historymammogram -08/2016Surgical Historyhip inj Dr Randall10/2017Surgical Historymammogram01/2018Surgical HistoryCT with contrast 08/24/18urgical Historyleft hip bgqzcfzsuyp85/5/2018Surgical Historyfemur fracture yubxujw85/8/2018Surgical HistoryCystoscopy - Dr. Acosta02/12/21 Hospitalization Historysee above [employer] Other History general Narrative - Reported* Type Description Date Medical History Last Pap 2010; Dr. Gonsalez Medical HistoryLast Mammogram ; [facility] (normal)Medical History No history of Stress Test, Colonoscopy or CT of the Abdomen or PelvisMedical HistoryLast EKG around age 19 before surgeryMedical HistoryNo history of FracturesMedical HistoryHistory of Chicken Pox as a ChildMedical History [facility]ammogram 08-15-13[facility] HistoryFlu Vaccine and Pneumonia Vaccine 2014Medical HistoryPt has O positive bloodSurgical HistoryT & A as a childSurgical Historybilateral breast biopsies; all were benignSurgical HistoryLeft knee replacement, Dr. RandallGdamesdt13-9-3631Nzvemtzl Historyrt knee replacement Dr Randall02/12/16urgical HistoryMRI of back - Dr HolbrookUnqjvmw6222 Surgical HistoryXR of hip - Dr RandallCldlgjtf5479Zwcrohjl HistoryPain clinic - injection left vbk7347Lwnpxjnb Historymammogram -08/2016Surgical Historyhip inj Dr Randall10/2017Surgical Historymammogram01/2018Surgical HistoryCT with contrast 08/24/18urgical Historyleft hip olsisxiosaz35/5/2018Surgical Historyfemur fracture fwjugwy57/8/2018Surgical HistoryCystoscopy - Dr. Acosta02/12/21Surgical HistoryCatartact surgeryurgical HistoryColonoscopy (colon polyp) & EGD Dr. May / see report/ repeat colonoscopy 5 years 98697-8-53Yiuswusouwtddfc Historysee above [employer] Other Reason for referral (narrative)* Reason appt referral for colonoscopy/positive FIT Diagnosis 1 Positive occult stoo l blood test (R19.5) Referral Organization [facility] Referring Provider First Name Christina Referring Provider Last Name Matheus Referring Provider Specialty Family Prac alban Referred Organization [facility] Referred Provider Polo Lyn Referred Address [address],[address] Referred Provider Specialty Gastroentero logy Referral Priority Routine General Notes Mary Ann Maurer 09/29/2022 03:45:56 PM > referral sent p2p. pt understands that she will be contacted to schedule this appt. [employer] [facility] Other Reason for referral (narrative)No reason for referral information availableC[facility] Work Phone: Summary Purpose Family History [...] 023 8:27am Hospital Course Note MR#: [id number] [facility] Pt. Name: Kayleigh Brown Admitted: 10/01/2018 [...] and content) DATE CREATED AUTHOR 01/10/2019 [facility] DATE CREATED AUTHOR AUTHOR'S ORGANIZ ATION 03/16/2021 [facility] DATE CREATED AUTHOR AUTHOR'S ORGANIZ ATION 12/31/2022 [facility] DATE CREATED AUTHOR AUTHOR'S ORGANIZ ATION 08/30/2025 [facility] REASON FOR VISIT [...] Active S tart: March 08, 2024 Saiard Hondo , LPNAttending ProviderActiveStart: March 08, 2024 Team [...] BE BASED ON THE PRIMARY CLINICAL RECORDS. [employer] provides no warranty or guarantee of the accuracy or completeness of information in this document.
[2025-09-24 05:37] LABS: Ferritin 50.0 ng/mL (8.0-252.0)
--- OUTSIDE RECORDS SUMMARY | 2025-09-24 05:37 | XMS_ITS | Clinical Summary ---
Author Organization [facility] Address [address] [place], [place] [address] Care Team Providers Care Trust Mail Clerk Name Role Phone Roberto Marino DO Primary Care Provider [phone] Social History Tobacco UseTypesPacks/DayYears UsedDateSmoking Tobacco: Never Assessed CommentsUnknownSex and Gender InformationValueDate RecordedSex Assigned at Not on fileLegal EfvUzvjwc15/28/2017 8:59 AM EDTGender IdentityNot on fileSexual OrientationNot on file Plan of Treatment Health MaintenanceDue DateLast DoneCommentsAnxiety Duxnrrtrx15/04/1967Depression Yigatvmph99/04/1967Hepatitis C Ayvhlvenu81/04/1967DTaP,Tdap,Td Vaccine (1 - Tdap)1968Diabetes Pweztymms41/04/1994Pneumococcal Vaccine: 50+ (1 of 1 - PCV)1999Shingrix Vaccine (1 of 2)1999Bone Density Screening 2014RSV Vaccine (1 - 1-dose 75+ series)2024dvance Directive Srmwqkloez06/01/2025ovid-19 Vaccine ( - 2024-26 season)2025Influenza Vaccine (#1)2025 Insurance * Guarantor: Chandni Martínez TypeRelation to PatientDate of BirthPhone Billing AddressPersonal/PagtcpYclv1950 [id number] [place] [address] Care Teams Team MemberRelationshipSpecialtyStart DateEnd Date Roberto Marino DO [address] [place] [address] PCP - Generalmi Medicine04/20/17
--- OUTSIDE RECORDS SUMMARY | 2025-09-24 05:37 | XMS_ITS | Encounter Summary ---
Author Organization [facility] Address [address] [place] [address] Phone Care Team Providers Care Auditor In Charge Name Role Phone Roberto Marino DO Primary Care Provider [phone] Encounter Details DateTypeDepartmentCare Team (Latest Contact Info)Fplvbhtapsa40/30/2025Travel Social History Tobacco UseTypesPacks/DayYears UsedDateSmoking Tobacco: Never Assessed CommentsUnknownSex and Gender InformationValueDate RecordedSex Assigned at Not on fileLegal NdvBfdwww51/13/2025 8:26 AM ESTGender IdentityNot on fileSexual OrientationNot on filedocumented as of this encounter Plan of Treatment DateTypeDepartmentCare Team (Latest Contact Info)Hhpebsuketc84/03/2025 2:10 PM ESTOffice Visit [place] [id number] [address] Ramirez Swift MD [address] [facility] 2, [address] [address] documented as of this encounter Visit Diagnoses Not on filedocumented in this encounter Care Teams Team MemberRelationshipSpecialtyStart DateEnd Date Roberto Marino DO [address] [place] [address] PCP - GeneralFamily Rdfprbdx44/17/25documented as of this encounter
--- OUTSIDE RECORDS SUMMARY | 2025-09-24 05:37 | XMS_ITS | Clinical Summary ---
Author Organization [facility] Address [address] [place] [address] Phone Care Team Providers Care Online User Experience Strategist Name Role Phone Roberto Marino DO Primary Care Provider [phone] Encounters DateTypeDepartmentCare ZjraBtgmmwrfetq98/30/9055Bxtwhf43/17/2025Scanned Document [facility] [address] [place] [address] Scanning, Generic Provider 08/26/2025Scanned Document [facility] [address] [place] [address] Scanning, Generic Provider from Last 3 Months Social History Tobacco UseTypesPacks/DayYears UsedDateSmoking Tobacco: Never Assessed CommentsUnknownSex and Gender InformationValueDate RecordedSex Assigned at Not on fileLegal PryUrsooa07/13/2025 8:26 AM ESTGender IdentityNot on fileSexual OrientationNot on file Plan of Treatment DateTypeDepartmentCare Team (Latest Contact Info)Axzkvtjifqm20/03/2025 2:[address] [facility] [address] [address] Ramirez Swift MD [address] [facility] [address] [place] [address] Health MaintenanceDue DateLast DoneCommentsLipid Panel1949Medicare Annual Wellness Visit (AWV)1950Hepatitis C Gitcffpkj29/04/1967DTaP/Tdap/Td Vaccines (1 - Tdap)1971Pneumococcal Vaccine (1 of [...] this topic Procedures Procedure NamePriorityDate/TimeAssociated DiagnosisCommentsECHOCARDIOGRAM 08/26/2025 KVJWOVLEEMQSET44/03/2025 from Last 3 Months Results * Echocardiogram (08/26/2025) Narrative 08/26/2025 Ordered by an unspecified provider. Authorizing ProviderResult TypeResult StatusGeneric Provider ScanningCV ECHO PROCEDURESFinal Result * Echocardiogram (08/26/2025) Narrative 08/26/2025 Ordered by an unspecified provider. Authorizing ProviderResult TypeResult StatusGeneric Provider ScanningCV ECHO PROCEDURESFinal Result from Last [address] [id number] Care Teams Team MemberRelationshipSpecialtyStart DateEnd Date Roberto Marino DO [address] [place] [address] PCP - GeneralFamily Cgawrjhz25/17/25
--- OUTSIDE RECORDS SUMMARY | 2025-09-24 05:37 | XMS_ITS | Clinical Summary ---
Author Organization [facility] Address [address] [place] [address] Care Team Providers Care Trademark Attorney Name Role Phone Unavailable Primary Care Provider Unavailabl e Social History Tobacco UseTypesPacks/DayYears UsedDateSmoking Tobacco: Never Assessed CommentsUnknownSex and Gender InformationValueDate RecordedSex Assigned at Not on fileLegal CwaYlogkf28/15/2023 7:30 PM EDTGender IdentityNot on fileSexual OrientationNot on file Last Filed Vital Signs Vital SignReadingTime TakenCommentsBlood Pressure--Pulse--Temperature-- Respiratory Rate--Oxygen Saturation--Inhaled Oxygen Concentration--Xehktt43.2 kg (212 lb)05/07/2020 12:00 PM RVXClhdwn889.3 cm (5' 9 )05/07/2020 12:00 PM EDTBody Mass Index31.31005/07/2020 12:00 PM EDT Plan of Treatment Not on file
--- OUTSIDE RECORDS SUMMARY | 2025-09-24 05:37 | XMS_ITS | Clinical Summary ---
Author Organization [employer] s tem Address [facility] [address] [place] [address] Care Team Providers Care Assisted Living Coordinator Name Role Phone Roberto Marino Guero AVITIA Primary Care Provider [phone] Allergies No known active allergies Medications MedicationSigDispense [...] standard drink = 0.6 oz pure alcohol)ChildcareAnswerDate QnsluhqyDubgbqavrXhojiao30/12/2019Employment AnswerDate SfqynfztWtfrpfpozsHrgswtu29/12/2019CommentsUnknownSex and Gender InformationValueDate RecordedSex Assigned at BirthNot on fileLegal Sex Axyzzo9308/26/2015 11:15 AM ESTGender IdentityNot on fileSexual OrientationNot on file Last Filed Vital Signs Vital SignReadingTime TakenCommentsBlood Pressure--Pulse--Qreabuslmmy95.9 ??C (96.6 ??F)12/01/2022 8:28 AM ESTRespiratory Rate--Oxygen Saturation--Inhaled Oxygen Concentration--Tenzlp016.2 kg (221 lb)12/01/2022 8:28 AM FYHUjgfob825.3 cm (5' 9 )12/01/2022 8:28 AM ESTBody Mass Index32.64012/01/2022 8:28 AM EST Plan of Treatment Health MaintenanceDue DateLast DoneCommentsDepression Usqdjmeey56/04/1961Tobacco Qavsgnvea75/04/1961DTaP,Tdap and Td Vaccines (1 - Tdap)1968Fall Risk Eabkjmwse51/04/2014Zoster (Shingles) Vaccine (2 of 3)RSV ( or age 60+ yrs) (1 - 1-dose 75+ series)4COVID-19 Vaccine (5 - season)/, 07/24/2021, 12/16/2020, Additional history existsInfluenza Pfvdaab80/, 07/13/2021, 07/10/2020, Additional history exists [employer] Not on file Insurance Care Teams Team MemberRelationshipSpecialtyStart DateEnd Date Roberto Marino DO [address] [place] [address] [place] [address] PCP - GeneralFamily Qmatthhb26/22/22
[2025-09-24 05:41] LABS: Iron 49.0 ug/dL (50.0-170.0)
[2025-09-24 05:42] LABS: Percent Iron Saturation 13.4 %; Total Iron Binding Capacity 365.0 ug/dL (250.0-450.0)
[2025-09-24] MEDS: ASPIRIN 81 MG TABLET.DR PO ×2 (06:31→09:44)
[2025-09-24] MEDS: BUSPIRONE HCL 15 MG TABLET PO (06:31)
[2025-09-24] MEDS: PANTOPRAZOLE SODIUM 40 MG TABLET.DR PO (06:31)
[2025-09-24] MEDS: ATORVASTATIN CALCIUM 10 MG TABLET PO (06:32)
--- NOTE | 2025-09-24 08:00 | ECG_ITS ---
[facility] Test Date: 2025-09-24 Pat Name: JANELLE BROWN Department: Room: 229 Gender: Female Last Code Striper: : 1950 Requested By: [id number] Order Number: [id number] Reading MD: NIKOLE VALENTINE Measurements Intervals [place] Rate: 79 P: 61 TN: 170 QRS: 49 QRSD: 90 T: 65 QT: 394 QTc: 428 Interpretive Statements 1100 Sinus rhythm 9110 normal ECG Compared to ECG 08/26/2025 07:01:41 Left ventricular hypertrophy no longer present Electronically Signed On 09-24-2025 6:57:54 EST by NIKOLE VALENTINE
--- NOTE | 2025-09-24 09:30 | CM.NOTE ---
Rounds made with Dr. Bonilla, discussed with pt lab results and plan of care. Dr. Bonilla requesting RN to do orthostatic BP's and send for occult stool. RN aware (Amrita).
[2025-09-24] MEDS: DILTIAZEM HCL 120 MG CAP.ER.24H PO (09:43)
[2025-09-24] MEDS: VENLAFAXINE HCL ER 150 MG CAPSULE PO (09:43)
[2025-09-24] MEDS: METOPROLOL SUCCINATE 50 MG TAB.ER.24H PO (09:44)
[2025-09-24] MEDS: RIVAROXABAN 10 MG TABLET 20 MG PO (09:44)
--- NOTE | 2025-09-24 13:35 | PM.HP ---
HPI H&P: HPI History of Present Illness Chief complaint: Syncope Narrative: Mrs. Martínez is a 75-year-old female who came to the emergency room after she apparently passed out. Patient was sitting in a chair and the next thing she remembers is being on the floor. She felt weak and could not get up. Likely she had the phone next to her. She called 911 and was brought to the emergency room. Her blood pressure was on the low side in the emergency room systolically 102. Patient denies any confusion or disorientation. No slurred speech. No focal weakness or numbness. No chest pain or palpitation. No fever or chills Opioid HPI Opioid Management Most Recent Pain and Opioid Data: Last Pain Scale 0 Today, 11:37 Last Pain Assessment Today, 13:27 Last ED Pain Assessment 09/23/25, 16:08 Last MAR Pain Assessment 09/23/25, 16:04 Last ORT Total Score 1 Today, 05:25 Last ORT Risk Category Low Risk Today, 05:25 [facility] Medical History (Updated 09/24/25 @ 04:05 by Nishant Key MD) HTN (hypertension) ?I10 - Essential (primary) hypertension (ICD-10) Atrial fibrillation ?I48.91 - Unspecified atrial fibrillation (ICD-10) History of depression ?Z86.59 - Personal history of other mental and behavioral disorders (ICD-10) History of hyperlipidemia ?Z86.39 - Personal history of other endocrine, nutritional and metabolic disease (ICD-10) History of gastroesophageal reflux (GERD) ?Z87.19 - Personal history of other diseases of the digestive system (ICD-10) History of hypertension ?Z86.79 - Personal history of other diseases of the circulatory system (ICD-10) Surgical History History of left hip replacement ?Z96.642 - Presence of left artificial hip joint (ICD-10) History of bilateral knee replacement ?Z96.653 - Presence of artificial knee joint, bilateral (ICD-10) Family History (Updated 08/25/25 @ 20:34 by Heidi Huang RN) Mother No problems noted. Other Family history of diabetes mellitus Family history of hypertension Social History Within the past year, how often did you have a drink containing alcohol: never Within the past year, how often did you have six or more drinks on one occasion: never Score interpretation: A score less than 3 is consistent with normal alcohol consumption. Smoking status: Never smoker Non-prescribed substance use: denies use Previous occupational history: retired Highest level of school completed/degree received: Bachelor's degree Are you now , , , , never or living with a partner: In a typical week, how many times do you talk on the telephone with family, friends, or neighbors: 3 or more times per week How often do you get together with friends or relatives: 3 or more times per week How often do you attend druze or mandaen services: 4 or more times per year Do you belong to any clubs or organizations such as druze groups unions, [employer] or athletic groups, or school groups: yes Total score: 3 Score interpretation: A score of greater than or equal to 2 indicates the lowest level of social isolation. Little interest or pleasure in doing things: not at all Feeling down, depressed, or hopeless: not at all Feel stressed/tense/nervous/anxious/difficulty sleeping: not at all Do you think of yourself as: don't know Gender Identity: female Meds Home Medications and Allergies Home Medications ?Medication ?Instructions ?Recorded ?Confirmed ?Type buspirone 15 mg tablet 22.5 mg PO BID 08/25/24 09/24/25 History omeprazole 40 mg capsule,delayed 40 mg PO DAILY 08/25/24 09/24/25 History release rosuvastatin 5 mg tablet 5 mg PO Q48H 08/25/24 09/24/25 History aspirin 81 mg tablet,delayed 81 mg PO QD #90 tabs 08/27/25 09/24/25 Rx release diltiazem HCl 120 mg 120 mg PO DAILY #60 caps 08/27/25 09/24/25 Rx capsule,extended release 24 hr (Cardizem CD) metoprolol succinate 50 mg 50 mg PO DAILY #60 tabs 08/27/25 09/24/25 Rx tablet,extended release 24 hr (Toprol XL) rivaroxaban 20 mg tablet (Xarelto) 20 mg PO DAILY #30 tabs 08/27/25 09/24/25 Rx losartan 25 mg tablet 25 mg PO QDAY 09/23/25 09/24/25 History venlafaxine 75 mg capsule,extended 75 mg PO QDAY 09/23/25 09/24/25 History release 24 hr Allergies Allergy/AdvReac Type Severity Reaction Status Date / Time No Known Drug Allergies Allergy Verified 09/23/25 15:31 Exam Narrative Exam Narrative: [pt is awake and alert. oriented to place, time and person HEENT: [place] conjunctiva and NL buccal mucosa Neck: Supple, no tenderness Endocrine: No Thyromegaly. Vascular: No JVD or carotid bruit. Lymphatic: No cervical lymphadenopathy. Chest: CTA no DTP. Heart RRR, soft systolic murmur Abd: Soft, no tenderness, no rebound and no rigidity. Increase abd girth therefore clinically I could not exclude the possibility of intra abd mass or organomegaly. LE: No cyanosis or clubbing, no varices or edema. Neuro: A A O. Nl speech, comprehension and attention. Nl and symetrical motor and tone examination through out. []] Constitutional Vital Signs, click to edit/add: Last Vital Signs Temp 98.4 F 09/24/25 11:37 Pulse 80 09/24/25 12:18 Resp 16 09/24/25 11:37 BP 102/62 09/24/25 11:44 Pulse Ox 97 09/24/25 11:37 O2 Del Method Room Air 09/24/25 11:37 Results Labs Labs: Short CBC 09/24/25 Range/Units 01:45 WBC 6.3 (4.0-11.0) 10^3/uL Hgb 8.8 L (12.0-16.0) g/dL Hct 27.7 L (36.0-48.0) % Plt Count 285 (150-450) 10^3/uL BMP 09/24/25 01:30 Sodium 138 Potassium 4.6 Chloride 106 Carbon Dioxide 27.1 BUN 20.0 H Creatinine 0.91 Glucose 131 H Calcium 9.4 Urine 09/24/25 Range/Units 00:25 Urine Color Yellow (YELLOW) Urine Clarity Clear (CLEAR) Urine pH 5.5 (5.0-9.0) Ur Specific [place] 1.025 (1.005-1.025) Urine Protein Negative (NEG/TRACE) mg/dL Urine Glucose (UA) Negative (NEGATIVE) mg/dL Assessment and Plan Assessment and Plan (1) Syncope: (2) Hypertrophic cardiomyopathy: Plan Syncopal episode, no preceding symptoms. No clinical evidence to suggest acute SPACE ENGINEER insult. Her blood pressure was labile on presentation to the emergency room department. Patient is known to to have suspected hypertrophic cardiomyopathy. I admitted her last month with A-fib and RVR. She was supposed to follow-up with cardiology and have an outpatient cardiac MRI. She did not follow through. This syncopal episode could be related to hypertrophic cardiomyopathy. This could be related to cardiac dysrhythmia that is not unusual in a patient with hypertrophic cardiomyopathy. Her troponin is negative. No clinical evidence to suggest ACS. The plan is to check orthostatic. Patient has mild orthostatic changes. No justification to repeat echocardiogram but patient is recommended to follow through on having cardiac MRI in the outpatient setting. Continue preadmission home medications including Cardizem, Toprol and Xarelto. Avoid aggressive diuresis. Consideration for 30 days Holter monitor to rule out ventricular dysrhythmia causing her syncopal episode. If patient is confirmed to have ventricular dysrhythmia then she may qualify for AICD. Anemia, no evidence of acute blood loss. Her hemoglobin on presentation is 8.8. Previously it was 12.8. Patient denies any melena or black-colored stool. I requested iron study and that came back consistent with iron deficiency. Low saturation and low ferritin level I started patient on iron supplementation intravenously. Monitor H&H over the next 24 hours to ensure stability. Requested stool Hemoccult. I start patient on PPI. Patient will likely require to have anemia workup to be done in the outpatient setting to be handled by PCP in collaboration with other needed outpatient providers. This may include but not limited to EGD, colonoscopy, referral to see hematology and other needed age-appropriate cancer screening.
[2025-09-24 14:31] LABS: Hemoglobin 7.3 g/dL (12.0-16.0)
[2025-09-24 14:34] LABS: Hematocrit 22.9 % (36.0-48.0)
[2025-09-24] MEDS: IRON SUCROSE COMPLEX 200 MG in 0.9 % SODIUM CHLORIDE 100 ML 220 MG IV (14:38)
--- NOTE | 2025-09-24 14:40 | CM.NOTE ---
Medicare Outpatient Observation Notice discussed with pt, pt verbalizes understanding and signs paper. Original given to pt and copy placed in pt's chart.
[2025-09-24 15:11] LABS: Hemoglobin 7.3 g/dL (12.0-16.0)
[2025-09-24 15:19] LABS: Hematocrit 22.9 % (36.0-48.0)
--- NOTE | 2025-09-24 15:23 | SWNOTE1 ---
Pt was on phone when SW stopped in to see her. Pt requested SW come back later.
[2025-09-24] MEDS: ACETAMINOPHEN 325 MG TABLET 650 MG PO (17:54)
[2025-09-24] MEDS: 0.9 % SODIUM CHLORIDE 250 ML 10 ML IV (18:11)
[2025-09-24 22:46] LABS: Hematocrit 24.9 % (36.0-48.0); Hemoglobin 8.1 g/dL (12.0-16.0)
[2025-09-25] VITALS (13 sets, daily range): BP systolic 112–136; BP diastolic 63–84; PULSE 63–93; TEMP 36.8–37; O2SAT 91–97
[2025-09-25 05:35] LABS: Hematocrit 25.3 % (36.0-48.0); Hemoglobin 8.1 g/dL (12.0-16.0); Immature Granulocytes Abs Auto 0.01 10^3/uL (0.00-0.03); Immature Granulocytes Pct Auto 0.2 % (0.0-0.5); Lymphocytes Absolute Auto 1.1 10^3/uL (1.2-3.8); Mean Corpuscular HGB Conc 32.0 g/dL (29.9-35.2); Mean Corpuscular Hemoglobin 29.2 pg (26.7-34.0); Mean Corpuscular Volume 91.3 fL (81.0-99.0); Platelet Count 261 10^3/uL (150-450); Red Blood Count 2.77 10^6/uL (4.20-5.40); White Blood Count 5.2 10^3/uL (4.0-11.0)
[2025-09-25 05:50] LABS: Anion Gap 7.2; Blood Urea Nitrogen 18.0 mg/dL (7.0-18.0); Calcium 9.1 mg/dL (8.5-10.1); Carbon Dioxide 27.6 mmol/L (21.0-32.0); Chloride 110 mmol/L (98-107); Estimated GFR (African America >60 (>=60 mL/min/1.73m^2); Estimated GFR (Non-African Ame >60 (>=60 mL/min/1.73m^2); Glucose 102 mg/dL (74-106); Potassium 3.8 mmol/L (3.5-5.1); Sodium 141 mmol/L (136-145)
--- NOTE | 2025-09-25 08:55 | CM.NOTE ---
GABRIELLE called and spoke with Amrita in Cardiology clinic regarding new consult on pt.
--- NOTE | 2025-09-25 09:11 | PM.PN ---
Progress Note: Subjective Subjective Interval history: Patient is feeling well. She did not have any bowel movement. No melena. No hematemesis. No hematuria. No abdominal pain or chest pain. No further syncopal episode Exam Narrative Exam Narrative: [pt is awake and alert. oriented to place, time and person HEENT: [place] conjunctiva and NL buccal mucosa Neck: Supple, no tenderness Endocrine: No Thyromegaly. Vascular: No JVD or carotid bruit. Lymphatic: No cervical lymphadenopathy. Chest: CTA no DTP. Heart RRR, no extra sound or murmur. Abd: Soft, no tenderness, no rebound and no rigidity. Increase abd girth therefore clinically I could not exclude the possibility of intra abd mass or organomegaly. LE: No cyanosis or clubbing, no varices or edema. Neuro: A A O. Nl speech, comprehension and attention. Nl and symetrical motor and tone examination through out. []] Constitutional Vital Signs, click to edit/add: Last Vital Signs Temp 98.6 F 09/25/25 07:41 Pulse 74 09/25/25 07:52 Resp 16 09/25/25 07:41 BP 112/63 09/25/25 07:41 Pulse Ox 93 L 09/25/25 07:41 O2 Del Method Room Air 09/25/25 07:41 Progress Note: Objective Labs Labs: Short CBC 09/24/25 09/24/25 09/24/25 Range/Units 14:07 15:05 22:40 WBC (4.0-11.0) 10^3/uL Hgb 7.3 L 7.3 L 8.1 L (12.0-16.0) g/dL Hct 22.9 L* 22.9 L* 24.9 L (36.0-48.0) % Plt Count (150-450) 10^3/uL 09/25/25 Range/Units 05:01 WBC 5.2 (4.0-11.0) 10^3/uL Hgb 8.1 L (12.0-16.0) g/dL Hct 25.3 L (36.0-48.0) % Plt Count 261 (150-450) 10^3/uL BMP 09/25/25 05:01 Sodium 141 Potassium 3.8 Chloride 110 H Carbon Dioxide 27.6 BUN 18.0 Creatinine 0.86 Glucose 102 Calcium 9.1 Progress Note: A&P Assessment and Plan (1) Syncope: (2) Hypertrophic cardiomyopathy: Plan Syncopal episode, no preceding symptoms. No clinical evidence to suggest acute JUICE WEIGHER insult. Her blood pressure was labile on presentation to the emergency room department. Patient is known to to have suspected hypertrophic obstructive cardiomyopathy. I admitted her last month with A-fib and RVR. She was supposed to follow-up with cardiology and have an outpatient cardiac MRI. She did not follow through. This syncopal episode could be related to suspected HOCM. If for sure has HOCM, she is at risk having syncope related to outflow track obstruction and/or cardiac dysrhythmia. Patient also is at risk having sudden cardiac if HOCM is confirmed. Her troponin is negative. No clinical evidence to suggest ACS. The plan is to check orthostatic. Patient has mild orthostatic changes. No justification to repeat echocardiogram but patient is recommended to follow through on having cardiac MRI in the outpatient setting. Continue preadmission home medications including Cardizem, Toprol and Xarelto. Avoid aggressive diuresis. Consideration for 30 days Holter monitor to rule out ventricular dysrhythmia causing her syncopal episode. If patient is confirmed to have ventricular dysrhythmia then she may qualify for AICD. Requested cardiology consultation to evaluate and provide further recommendation. Anemia, no evidence of acute blood loss. Her hemoglobin on presentation is 8.8. Previously it was 12.8. Patient denies any melena or black-colored stool. I requested iron study and that came back consistent with iron deficiency. Low saturation and low ferritin level I started patient on iron supplementation intravenously. Monitor H&H over the next 24 hours to ensure stability. Requested stool Hemoccult. Patient not have a bowel movement yet. I start patient on PPI. Patient will likely require to have anemia workup to be done in the outpatient setting to be handled by PCP in collaboration with other needed outpatient providers. This may include but not limited to EGD, colonoscopy, referral to see hematology and other needed age-appropriate cancer screening. We will arrange for patient to have GI investigation.
[2025-09-25] MEDS: MAGNESIUM HYDROXIDE 2,400 MG/10 ML ORAL.SUSP 2400 MG PO (09:29)
[2025-09-25] MEDS: PANTOPRAZOLE SODIUM 40 MG TABLET.DR PO (09:29)
[2025-09-25] MEDS: ASPIRIN 81 MG TABLET.DR PO (09:29)
[2025-09-25] MEDS: DILTIAZEM HCL 120 MG CAP.ER.24H PO (09:29)
[2025-09-25] MEDS: VENLAFAXINE HCL ER 150 MG CAPSULE PO (09:29)
[2025-09-25] MEDS: METOPROLOL SUCCINATE 50 MG TAB.ER.24H PO (09:30)
[2025-09-25] MEDS: SENNOSIDES/DOCUSATE SODIUM 1 TAB TABLET 2 TAB PO (09:33)
[2025-09-25] MEDS: BUSPIRONE HCL 15 MG TABLET PO (09:34)
--- NOTE | 2025-09-25 09:50 | SWNOTE1 ---
SW met with pt to discuss dc needs. Pt lives at home alone. Pt is independent and still drives. Pt has 2 sons, one in [place] and one in [place]. She stated her one son calls her 5x daily to check on her. She voiced she has no anticipated discharge needs. Pt did ask SW if she does not have a ride, is there anyone that provides transportation. SW did let her know that we do contract with trips and if pt is not able to find a ride by family/friends/neighbors, then we can assist with transportation. Pt voiced appreciation.
--- NOTE | 2025-09-25 10:04 | CM.NOTE ---
Rounds made with Dr. Bonilla, discussed plan of care with pt. No discharge today, pt will change to inpatient status. Cardiology will consult on pt today for further recommendations.
--- NOTE | 2025-09-25 11:28 | PM.EN ---
Event Note Event Note: Patient had a bowel movement. Nurse reported that the stool is mixed with the blood. Occult blood testing came back positive. Due to her hemoglobin drop from 12, 4 weeks ago down to 7.3 while patient is on Xarelto and having bloody bowel movement I would recommend patient to have sooner than later GI investigation. I talked to patient about this. She is in agreement to go to [facility] for GI workup. Hold Xarelto at this time. Hemoglobin is stable at 8.1 after 1 unit of transfusion. Repeat H&H is pending blood pressure systolically is 125. Pulse is 76. No clinical evidence of massive GI blood loss. It seems to be slow at this time. Her son is in agreement for Kayleigh to go to [facility].
--- NOTE | 2025-09-25 11:31 | PM.DS1 ---
DS: Providers Provider Date of admission: 09/24/25 04:55 Primary care physician: CHRISTINA JARVIS DS: Diagnosis Discharge Diagnosis (1) Syncope: (2) Hypertrophic cardiomyopathy: Plan As listed above, below and others that are not listed DS: Summary Hospital Course Hospital Course: Mrs. Martínez is a 75-year-old female who was brought to the emergency room after she passed out at home. Syncopal episode, no preceding symptoms. No clinical evidence to suggest acute BROOMMAKER insult. Her blood pressure was labile on presentation to the emergency room department. Patient is known to to have suspected hypertrophic obstructive cardiomyopathy based on previous echocardiogram. I admitted her last month with A-fib and RVR. She was supposed to follow-up with cardiology and have an outpatient cardiac MRI. She did not follow through. This syncopal episode could be related to suspected HOCM. If for sure has HOCM, she is at risk having syncope related to outflow track obstruction and/or cardiac dysrhythmia. Patient also is at risk having sudden cardiac if HOCM is confirmed. Her troponin is negative. No clinical evidence to suggest ACS. Patient has minimal orthostatic changes No justification to repeat echocardiogram but patient is recommended to follow through on having cardiac MRI in the outpatient setting. Continue preadmission home medications including Cardizem, Toprol and Xarelto. Avoid aggressive diuresis. Consideration for 30 days Holter monitor to rule out ventricular dysrhythmia causing her syncopal episode. If patient is confirmed to have ventricular dysrhythmia then she may qualify for AICD. Patient will be transferred to [facility] for a GI investigation. She has an appointment with Dr. Swift on October 09 in the outpatient setting. I would recommend Dr. Swift sees her while she is in house. Anemia, no evidence of acute blood loss. Her hemoglobin on presentation is 8.8. Previously it was 12.8. Patient denies any melena or black-colored stool prior to admission. I requested iron study and that came back consistent with iron deficiency. Low saturation and low ferritin level I started patient on iron supplementation intravenously. On Tuesday, her hemoglobin dropped to 7.3. I gave her 1 unit of RBC. Hemoglobin is up to 8.1. This morning, the patient went to the bathroom and noted to have bloody stool, stool mixed with blood. Given the fact that patient would need to resume Xarelto for A-fib and embolic stroke prevention it is reasonable to proceed with a GI investigation sooner than later. Patient will be transferred to [facility] for GI investigation. Hopefully Dr. Swift can see her there as well for suspected HOCM Chronic, subacute medical conditions not listed above, abnormal labs and imaging, incidental findings seen on labs and or imaging. These would need to be addressed. Could be addressed later on or in the outpatient setting by PCP collaboration with other needed outpatient providers when time and condition are appropriate. Time Spent with Patient Time attestation: Total time spent providing and/or coordinating discharge services: Exam Constitutional Vital Signs, click to edit/add: Last Vital Signs Temp 98.6 F 09/25/25 07:41 Pulse 76 09/25/25 10:00 Resp 16 09/25/25 07:41 BP 112/63 09/25/25 07:41 Pulse Ox 93 L 09/25/25 07:41 O2 Del Method Room Air 09/25/25 07:41 DS: Data Data Completed and Pending Labs on day of discharge: Labs from last 24 hours 09/25/25 09/25/25 09/24/25 10:00 05:01 22:40 WBC 5.2 RBC 2.77 L Hgb 8.1 L 8.1 L Hct 25.3 L 24.9 L MCV 91.3 MCH 29.2 MCHC 32.0 RDW 14.6 Plt Count 261 MPV 9.6 Neut % (Auto) 63.1 Lymph % (Auto) 21.2 [place] % (Auto) 12.0 Eos % (Auto) 3.1 Baso % (Auto) 0.4 Neut # (Auto) 3.3 Lymph # (Auto) 1.1 L [place] # (Auto) 0.6 Eos # (Auto) 0.2 Baso # (Auto) 0.0 Abs Immat Gran (auto) 0.01 Imm/Tot Granulo (auto) 0.2 Sodium 141 Potassium 3.8 Chloride 110 H Carbon Dioxide 27.6 Anion Gap 7.2 BUN 18.0 Creatinine 0.86 Est GFR ( Amer) >60 Est GFR (Non-Af Amer) >60 BUN/Creatinine Ratio 20.9 Glucose 102 Calcium 9.1 Stool Occult Blood Positive A Blood Type Antibody Screen Crossmatch Crossmatch ([facility]G) 09/24/25 09/24/25 15:05 14:07 WBC RBC Hgb 7.3 L 7.3 L Hct 22.9 L* 22.9 L* MCV MCH MCHC RDW Plt Count MPV Neut % (Auto) Lymph % (Auto) [place] % (Auto) Eos % (Auto) Baso % (Auto) Neut # (Auto) Lymph # (Auto) [place] # (Auto) Eos # (Auto) Baso # (Auto) Abs Immat Gran (auto) Imm/Tot Granulo (auto) Sodium Potassium Chloride Carbon Dioxide Anion Gap BUN Creatinine Est GFR ( Amer) Est GFR (Non-Af Amer) BUN/Creatinine Ratio Glucose Calcium Stool Occult Blood Blood Type O Positive Antibody Screen Negative Crossmatch See Detail Crossmatch ([facility]) See Detail Discharge Plan Discharge Disposition: Xfer [facility] [employer]/Graduate Assistant Instructions: 30 day event monitor
--- NOTE | 2025-09-25 11:44 | CM.NOTE ---
Called [facility] nursing supervisor knitting to initiate transfer.
--- NOTE | 2025-09-25 12:00 | CM.NOTE ---
CM updated [facility] cardiology of pt's transfer to [facility], can cancel consult.
--- NOTE | 2025-09-25 12:00 | CM.NOTE ---
Updated [employer]urg [employer] secretary Romina, transfer initiated, accepting doctor Dr. Hoang.
[2025-09-25] MEDS: PANTOPRAZOLE SODIUM 40 MG VIAL IV (13:00)
[2025-09-25] MEDS: 0.9 % SODIUM CHLORIDE 1,000 ML 150 ML IV (13:05)
--- NOTE | 2025-09-30 11:19 | PC.NURSE ---
On 09/24/2025, at 1331, pt was transferred to [facility] with IV NS fluids running. NS 250ml bag of fluids were completed after PRBC transfusion and at transfer.
== END 2025-09-25 13:31 | disposition short-term general hospital (02) | DRG 315 ==
LOC: ER 09-24 04:05 → MS 09-24 05:34
PROVIDERS: Admitting Provider Internal Medicine; Emergency Provider Internal Medicine; PCP Family Medicine; Visit Provider Internal Medicine
DX: I42.1 Obstructive hypertrophic cardiomyopathy (principal); K92.1 Melena; R55 Syncope and collapse; I48.91 Unspecified atrial fibrillation; D50.9 Iron deficiency anemia, unspecified; I10 Essential (primary) hypertension; Z96.642 Presence of left artificial hip joint; Z96.652 Presence of left artificial knee joint
CPT/HCPCS: 36415; 36430; 70450; 71045; 72125; 76376; 80048; 81001; 82728; 83540; 83550; 83605; 83735; 84484; 85014; 85018; 85025; 86850; 86900; 86901; 86920; 86922; 93005; 96361; 96365; 99285; G0328; G0378; J1756; P9016